=== PATIENT | male | born 1950 | race Caucasian/White ===

== ENCOUNTER 2017-11-12 08:28 | Inpatient (IN) | payer MEDICARE, MEDICAID ==
[2017-11-12] MEDS ORDERED: DILTIAZEM HCL INJ 25 MG/5 ML VIAL IV ONE (08:48)
--- NOTE | 2017-11-12 08:52 | ER Document Report ---
ED General - General Stated Complaint: RESPIRATORY DISTRESS Time Seen by Provider: 11/12/17 08:47 Notes: Patient with shortness of breath. Worsening throughout the day. EMS contacted. Patient transported in respiratory distress with 2 breathing treatments and Solu-Medrol in route. On arrival patient's heart rate in the 160s. Patient with history of atrial fibrillation. Does not know what medication he is currently taking. Was recently hospitalized. Denies any chest pain at this time just shortness of breath. TRAVEL OUTSIDE OF THE [place] IN LAST 30 DAYS: No - HPI Onset: Just prior to arrival Onset/Duration: Gradual Quality of pain: No pain Severity: Severe Associated symptoms: Shortness of breath Exacerbated by: Denies - Related Data Allergies/Adverse Reactions: Penicillins Allergy (Severe, Verified 07/15/16 10:34) turned blue as infant hydrocodone bitartrate [From Vicodin] Allergy (Intermediate, Verified 07/15/16 10:34) N & V Past Medical History - General Information source: Patient - Social History Smoking Status: Current Some Day Smoker Cigarette use (# per day): Yes Frequency of alcohol use: None Drug Abuse: None Family History: Reviewed & Not Pertinent - Past Medical History Cardiac Medical History: Reports: Hx Atrial Fibrillation, Hx Congestive Heart Failure, Hx Coronary Artery Disease, Hx Heart Attack - 2010 Pulmonary Medical History: Reports: Hx COPD Neurological Medical History: Reports: Hx Cerebrovascular Accident - 2009 Malignancy Medical History: Reports Hx Skin Cancer Musculoskeltal Medical History: Reports Hx Arthritis Psychiatric Medical History: Denies: Hx Depression Past Surgical History: Reports: Hx Cardiac Catheterization - stent, Hx Coronary Artery Bypass Graft - 11/2011, Hx Coronary Stent - Immunizations Hx Diphtheria, Pertussis, Tetanus Vaccination: No Hx Pneumococcal Vaccination: 11/04/11 Review of Systems - Review of Systems Constitutional: No symptoms reported EENT: No symptoms reported Cardiovascular: Palpitations, Dyspnea, Lightheaded Respiratory: Cough, Short of breath, Wheezing Gastrointestinal: No symptoms reported Genitourinary: No symptoms reported Male Genitourinary: No symptoms reported Musculoskeletal: No symptoms reported Skin: No symptoms reported Hematologic/Lymphatic: No symptoms reported Neurological/Psychological: No symptoms reported Physical Exam - Vital signs Vitals: Pulse Ox 94 11/12/17 08:32 Interpretation: Normal - General General appearance: Alert In distress: Moderate - HEENT Head: Normocephalic, Atraumatic Eyes: Normal Pupils: PERRL - Respiratory Respiratory status: No respiratory distress Chest status: Nontender Breath sounds: Decreased air movement, Nonproductive cough, Wheezing Chest palpation: Normal - Cardiovascular Rhythm: Irregularly irregular, Tachycardia Heart sounds: Normal auscultation Murmur: No - Abdominal Inspection: Normal Distension: No distension Bowel sounds: Normal Tenderness: Nontender Organomegaly: No organomegaly - Back Back: Normal, Nontender - Extremities General upper extremity: Normal inspection, Nontender, Normal color, Normal ROM , Normal temperature General lower extremity: Normal inspection, Nontender, Normal color, Normal ROM , Normal temperature, Normal weight bearing. No: Gonzalo's sign - Neurological Neuro grossly intact: Yes Cognition: Normal Orientation: AAOx4 [place] Coma Scale Eye Opening: Spontaneous Linda Coma Scale Verbal: Oriented [place] Coma Scale Motor: Obeys Commands [place] Coma Scale Total: 15 Speech: Normal Motor strength normal: LUE, RUE, LLE, RLE Sensory: Normal - Psychological Associated symptoms: Normal affect, Normal mood - Skin Skin Temperature: Warm Skin Moisture: Dry Skin Color: Normal Course - Re-evaluation Re-evalutation: 11/12/17 08:51 Patient EKG shows A. fib with RVR heart rate 175. Will give diltiazem bolus and drip at this time. Chest x-ray, cardiac workup, breathing treatment, oxygen and reassess. 11/12/17 10:32 Rate coming down nicely on the diltiazem drip. Consulted with Dr. Alex who will admit to the hospital at this time. - Vital Signs Vital signs: Temp Pulse Resp BP Pulse Ox 98.5 F 147 H 33 H 132/76 H 95 11/12/17 09:03 11/12/17 09:03 11/12/17 10:01 11/12/17 10:01 11/12/17 10:01 - Laboratory Result Diagrams: 11/12/17 08:46 11/12/17 08:46 Laboratory results interpreted by me: 11/12/17 11/12/17 11/12/17 08:46 08:46 08:46 Seg Neutrophils % 82.8 H Lymphocytes % 8.3 L Absolute Neutrophils 8.3 H BUN 24 H Glucose 139 H Direct Bilirubin 0.5 H NT-Pro-B Natriuret Pep 1590 H Total Protein 8.4 H - EKG Interpretation by Me EKG shows normal: abnormal: ST-T Waves - T-wave inversions diffusely, nonspecific T-wave abnormalities Rate: Tachycardia Rhythm: A.Fib Critical Care Note - Critical Care Note Total time excluding time spent on procedures (mins): 45 Comments: Tachycardia, cardiac related issues, blood pressure management Discharge - Discharge Clinical Impression: Atrial fibrillation with rapid ventricular response, COPD exacerbation Congestive heart failure (CHF) Qualifiers: Congestive heart failure type: unspecified Congestive heart failure chronicity : unspecified Qualified Code(s): I50.9 - Heart failure, unspecified Condition: Good Disposition: ADMITTED INPATIENT Admitting Provider: Isai Unit Admitted: [facility]
[2017-11-12] MEDS: DILTIAZEM HCL/D5W 125 MG/125 ML RTUINJ IV PRN ×2 (08:58→17:19)
[2017-11-12 09:03] LABS: VENOUS BLOOD BASE EXCESS -0.5 mmol/L; VENOUS BLOOD HCO3 24.5 mmol/L (20-32); VENOUS BLOOD PCO2 41.5 mmHg (35-63); VENOUS BLOOD PH 7.39 (7.30-7.42)
[2017-11-12 09:08] LABS: ABSOLUTE LYMPHOCYTES (AUTO) 0.8 10^3/uL (0.5-4.7); ABSOLUTE MONOCYTES (AUTO) 0.8 10^3/uL (0.1-1.4); ABSOLUTE NEUT (AUTO) 8.3 10^3/uL (1.7-8.2); BASOPHILS % (AUTO) 0.4 % (0-2); HEMOGLOBIN 15.4 g/dL (13.5-17.0); LYMPHOCYTES % (AUTO) 8.3 % (13-45); MEAN CORPUSCULAR HEMOGLOBIN 30.4 pg (27.0-33.4); MEAN CORPUSCULAR HGB CONC 34.3 g/dL (32.0-36.0); MEAN CORPUSCULAR VOLUME 89 fl (80-97); MONOCYTES % (AUTO) 8.5 % (3-13); PLATELET COUNT 243 10^3/uL (150-450); RED BLOOD COUNT 5.07 10^6/uL (4.35-5.55); RED CELL DISTRIBUTION WIDTH 13.5 % (11.5-14.0); SEGMENTED NEUTROPHILS % (AUTO) 82.8 % (42-78); TOTAL CELLS COUNTED % (AUTO) 100 %
--- NOTE | 2017-11-12 09:10 | RADIOLOGY REPORT (SQ) ---
EXAM DESCRIPTION: CHEST SINGLE VIEW COMPLETED DATE/TIME: 11/12/2017 8:55 am REASON FOR STUDY: bed 9 sepsis protocol COMPARISON: 07/15/2016 EXAM PARAMETERS: NUMBER OF VIEWS: One view. TECHNIQUE: Single frontal radiographic view of the chest acquired. RADIATION DOSE: NA LIMITATIONS: None. FINDINGS: LUNGS AND PLEURA: No active infiltrates or effusions. No pulmonary edema or vascular jasmyne estion. MEDIASTINUM AND HILAR STRUCTURES: No masses. Contour normal. HEART AND VASCULAR STRUCTURES: Stable cardiomegaly. BONES: No acute findings. HARDWARE: None in the chest. OTHER: No other significant finding. IMPRESSION: Cardiomegaly. No overt congestive heart failure or active infiltrate. TECHNICAL DOCUMENTATION: JOB ID: [id number] [employer]- All Rights Reserved
[2017-11-12 09:12] LABS: INTERNATIONAL RATION (INR) 1.05; PROTHROMBIN TIME 14.5 SEC (11.4-15.4)
[2017-11-12 09:25] LABS: ALANINE AMINOTRANSFERASE 25 U/L (21-72); ALBUMIN 4.8 g/dL (3.5-5.0); ALKALINE PHOSPHATASE 62 U/L (38-126); ANION GAP 17 (5-19); ASPARTATE AMINO TRANSFERASE 31 U/L (17-59); BILIRUBIN,DIRECT 0.5 mg/dL (0.0-0.4); BILIRUBIN,TOTAL 1.1 mg/dL (0.2-1.3); BLOOD UREA NITROGEN 24 mg/dL (7-20); CALCIUM 9.3 mg/dL (8.4-10.2); CARBON DIOXIDE 22 mmol/L (22-30); CHLORIDE 103 mmol/L (98-107); GLUCOSE 139 mg/dL (75-110); POTASSIUM 4.3 mmol/L (3.6-5.0); SODIUM 141.8 mmol/L (137-145); TOTAL PROTEIN 8.4 g/dL (6.3-8.2)
[2017-11-12 09:37] LABS: TROPONIN I 0.027 ng/mL
[2017-11-12 10:51] LABS: APPEARANCE,URINE SLIGHTLY-CLOUDY; BILIRUBIN,URINE NEGATIVE (NEGATIVE); COLOR,URINE AMBER; GLUCOSE, URINE NEGATIVE (NEGATIVE); KETONES,URINE TRACE mg/dL (NEGATIVE); LEUKOCYTE ESTERASE,URINE NEGATIVE (NEGATIVE); NITRITE,URINE NEGATIVE (NEGATIVE); PROTEIN,URINE 100 mg/dL (NEGATIVE); URINE SPECIFIC GRAVITY 1.034
--- NOTE | 2017-11-12 13:09 | EKG REPORT ---
SEVERITY:- ABNORMAL ECG - ATRIAL FIBRILLATION WITH RAPID V-RATE BORDERLINE INFERIOR Q WAVES REPOLARIZATION ABNORMALITY, PROB RATE RELATED : Confirmed by: Saeid Fofana MD 12-Nov-2017 13:09:05
[2017-11-12] MEDS ORDERED: IPRATROPIUM/ALBUTEROL 0.5-2.5 MG/3 ML AMPUL NEB PRN (15:57)
[2017-11-12] MEDS: METHYLPREDNISOLONE INJ 125 MG/2 ML SDV IV SCH (19:10)
[2017-11-12] MEDS ORDERED: (PENDING PHARMACY ID) (Oxycodone Hcl/Acetaminophen [Percocet 7.5-325 Mg Tablet] 1 TAB) PO PRN (20:09)
[2017-11-12] MEDS ORDERED: OXYCODONE HCL IR 5 MG TABLET PO PRN (20:13)
[2017-11-12] MEDS ORDERED: ACETAMINOPHEN 325 MG TABLET PO PRN (20:14)
[2017-11-12] MEDS ORDERED: INFLUENZA ADLT QUAD (36MOS+) 2017-18 VAC 0.5 ML SYR IM PRN (20:31)
--- NOTE | 2017-11-12 20:41 | PDOC H&P ---
History of Present Illness Admission Date/PCP: 11/12/17 11:00 Patient complains of: Difficulty with breathing History of Present Illness: RUKHSANA GRAHAM is a 67 year old male known to my practice who has been noncompliant with medical care follow up due to reported transportation problem but do attend pain management clinic! Presented to the ED earlier today via EMS service due to worsening difficulty with breathing. EMS crew did administered bronchodilator and IV Solu Medrol therapy en route to the ED. His initial evaluation in the ED was remarkable for atrial fibrillation with RVR and ongoing difficulty with breathing that necessitate BiPAP therapy along with IV Steroid and bronchodilator therapy. Patient do have history of chronic atrial fibrillation and COPD. He claimed that he only take Digoxin. He quit cigarette smoking yesterday! He denied any associated chest pain. He admitted to palpitation, lightheadedness, and dizziness. He denied nausea, vomiting, headache or loss of consciousness. His other morbidities include Congestive Heart Failure, Coronary Artery Disease, Old Myocardial infarction, Hx Heart Attack - 2010, history of Cerebrovascular Accident without residual motor deficit, Right eye blindness, Degenerative joint disease with chronic pain syndrome, Skin cancer, Coronary Artery Bypass Graft, and coronary stent angioplasty Past Medical History Cardiac Medical History: Reports: Atrial Fibrillation, Congestive Heart Failure , Coronary Artery Disease, Myocardial Infarction - 2010 Pulmonary Medical History: Reports: Chronic Obstructive Pulmonary Disease (COPD) Malignancy Medical History: Reports: Skin Cancer Musculoskeltal Medical History: Reports: Arthritis Psychiatric Medical History: Denies: Depression Hematology: Denies: Anemia Past Surgical History Past Surgical History: Reports: Cardiac Catheterization - stent, Coronary Artery Bypass Graft - 11/2011, Coronary Stent Social History Smoking Status: Current Some Day Smoker Frequency of Alcohol Use: None Hx Recreational Drug Use: No Hx Prescription Drug Abuse: No Family History Family History: Reviewed & Not Pertinent Parental Family History Reviewed: Yes Children Family History Reviewed: Yes Sibling(s) Family History Reviewed.: Yes Medication/Allergy Home Medications: Digoxin [Lanoxin 0.125 mg Tablet] 0.125 mg PO DAILY 11/12/17 Oxycodone HCl/Acetaminophen [Percocet 7.5-325 mg Tablet] 1 tab PO Q6HP PRN 11/12 Allergies/Adverse Reactions: Penicillins Allergy (Severe, Verified 07/15/16 10:34) turned blue as hydrocodone bitartrate [From Vicodin] Allergy (Intermediate, Verified 07/15/16 10:34) N & V Review of Systems Constitutional: ABSENT: chills, fever(s), headache(s), weight gain, weight loss Eyes: PRESENT: visual disturbances - Right eye blindness Ears: PRESENT: hearing changes Nose, Mouth, and Throat: ABSENT: as per HPI, headache(s), mouth pain, sore throat, vertigo, other Cardiovascular: PRESENT: dyspnea on exertion, palpitations Respiratory: PRESENT: dyspnea. ABSENT: as per HPI, cough, hemoptysis, sputum, other Gastrointestinal: ABSENT: abdominal pain, constipation, diarrhea, hematemesis, hematochezia, nausea, vomiting Genitourinary: ABSENT: dysuria, hematuria Musculoskeletal: ABSENT: joint swelling Integumentary: ABSENT: rash, wounds Neurological: PRESENT: dizziness, other - light headedness Psychiatric: ABSENT: anxiety, depression, homidical ideation, suicidal ideation Endocrine: ABSENT: cold intolerance, heat intolerance, menstrual abnormalities, polydipsia, polyuria Hematologic/Lymphatic: ABSENT: easy bleeding, easy bruising, lymphadenopathy Allergic/Immunologic: ABSENT: seasonal rhinorrhea Physical Exam Vital Signs: Temp Pulse Resp BP Pulse Ox 98.5 F 147 H 35 H 120/79 96 11/12/17 09:03 11/12/17 09:03 11/12/17 19:46 11/12/17 19:46 11/12/17 19:46 General appearance: PRESENT: mild distress - remain on supplemental oxygen via nasal cannula Head exam: PRESENT: atraumatic, normocephalic Eye exam: PRESENT: conjunctiva pink, EOMI, PERRLA. ABSENT: scleral icterus Mouth exam: PRESENT: moist Neck exam: PRESENT: full ROM. ABSENT: carotid bruit, JVD, lymphadenopathy, thyromegaly Respiratory exam: PRESENT: decreased breath sounds, rhonchi - expiratory phase Cardiovascular exam: PRESENT: irregular rhythm, +S1, +S2, tachycardia Pulses: PRESENT: normal dorsalis pedis pul, +2 pedal pulses bilateral Vascular exam: PRESENT: normal capillary refill. ABSENT: pallor GI/Abdominal exam: PRESENT: normal bowel sounds, soft. ABSENT: distended, guarding, mass, organolmegaly, rebound, tenderness Rectal exam: PRESENT: deferred Extremities exam: ABSENT: pedal edema Musculoskeletal exam: PRESENT: deformity - related to multiple joint involvement with arthritis Neurological exam: PRESENT: alert, awake, oriented to person, oriented to place , oriented to time, oriented to situation, CN II-XII grossly intact. ABSENT: motor sensory deficit Psychiatric exam: PRESENT: appropriate affect, normal mood. ABSENT: homicidal ideation, suicidal ideation Skin exam: PRESENT: dry, warm Results Impressions: Chest X-Ray 11/12/17 08:31 IMPRESSION: Cardiomegaly. No overt congestive heart failure or active infiltrate. Assessment & Plan - Diagnosis (1) Chronic obstructive pulmonary disease with (acute) exacerbation Is this a current diagnosis for this admission?: Yes Plan: See admitting physician orders. (2) Atrial fibrillation with rapid ventricular response Is this a current diagnosis for this admission?: Yes Plan: See admitting physician orders. (3) Congestive heart failure (CHF) Qualifiers: Congestive heart failure type: unspecified Congestive heart failure chronicity: chronic Qualified Code(s): I50.9 - Heart failure, unspecified Is this a current diagnosis for this admission?: Yes Plan: See admitting physician orders. (4) HTN (hypertension) Qualifiers: Hypertension type: essential hypertension Qualified Code(s): I10 - Essential (primary) hypertension Is this a current diagnosis for this admission?: Yes Plan: See admitting physician orders. (5) HLD (hyperlipidemia) Qualifiers: Hyperlipidemia type: pure hypercholesterolemia Qualified Code(s): E78.00 - Pure hypercholesterolemia, unspecified; E78.0 - Pure hypercholesterolemia Is this a current diagnosis for this admission?: Yes Plan: See admitting physician orders. (6) CAD (coronary artery disease) Qualifiers: Coronary Disease-Associated Artery/Lesion type: unspecified vessel or lesion type [place] vs. transplanted heart: [place] heart Associated angina: without angina Qualified Code(s): I25.10 - Atherosclerotic heart disease of [place] coronary artery without angina pectoris (7) S/P CABG (coronary artery bypass graft) Is this a current diagnosis for this admission?: Yes Plan: See admitting physician orders. (8) Nicotine dependence, cigarettes, with other nicotine-induced disorders Is this a current diagnosis for this admission?: Yes Plan: See admitting physician orders. - Time Time Spent: 50 to 70 Minutes Medications reviewed and adjusted accordingly: Yes Anticipated discharge: Home Within: Other - Inpatient Certification Based on my medical assessment, after consideration of the patient's comorbidities, presenting symptoms, or acuity I expect that the services needed warrant INPATIENT care.: Yes I certify that my determination is in accordance with my understanding of Medicare's requirements for reasonable and necessary INPATIENT services [42 CFR 412.3e].: Yes Medical Necessity: Need Close Monitoring Due to Risk of Patient Decompensation, Need For Continuous Telemetry Monitoring, Need for Nebulizer Therapy and Monitoring of Response, Risk of Complication if Not Cared For in Hospital 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
[2017-11-13] MEDS: DABIGATRAN ETEXILATE 150 MG CAPSULE PO SCH ×3 (00:51→21:53)
[2017-11-13] MEDS: LEVOFLOXACIN 500 MG/D5W RTU 500 MG/100 ML RTUPB IV SCH ×2 (00:51→21:53)
[2017-11-13] MEDS: METHYLPREDNISOLONE INJ 125 MG/2 ML SDV IV SCH ×3 (02:45→17:27)
[2017-11-13] MEDS: DILTIAZEM HCL/D5W 125 MG/125 ML RTUINJ IV PRN ×2 (06:04→23:25)
[2017-11-13 07:16] LABS: ABSOLUTE LYMPHOCYTES (AUTO) 0.6 10^3/uL (0.5-4.7); ABSOLUTE MONOCYTES (AUTO) 0.5 10^3/uL (0.1-1.4); ABSOLUTE NEUT (AUTO) 11.1 10^3/uL (1.7-8.2); BASOPHILS % (AUTO) 0.1 % (0-2); HEMATOCRIT 41.9 % (37.9-51.0); HEMOGLOBIN 14.8 g/dL (13.5-17.0); LYMPHOCYTES % (AUTO) 5.1 % (13-45); MEAN CORPUSCULAR HEMOGLOBIN 31.1 pg (27.0-33.4); MEAN CORPUSCULAR HGB CONC 35.2 g/dL (32.0-36.0); MEAN CORPUSCULAR VOLUME 88 fl (80-97); MONOCYTES % (AUTO) 4.5 % (3-13); PLATELET COUNT 222 10^3/uL (150-450); RED BLOOD COUNT 4.74 10^6/uL (4.35-5.55); RED CELL DISTRIBUTION WIDTH 13.5 % (11.5-14.0); SEGMENTED NEUTROPHILS % (AUTO) 90.3 % (42-78); TOTAL CELLS COUNTED % (AUTO) 100 %; WHITE BLOOD COUNT 12.2 10^3/uL (4.0-10.5)
[2017-11-13 07:53] LABS: ALANINE AMINOTRANSFERASE 22 U/L (21-72); ALBUMIN 4.1 g/dL (3.5-5.0); ALKALINE PHOSPHATASE 57 U/L (38-126); ANION GAP 11 (5-19); ASPARTATE AMINO TRANSFERASE 34 U/L (17-59); BILIRUBIN,DIRECT 0.4 mg/dL (0.0-0.4); BILIRUBIN,TOTAL 0.8 mg/dL (0.2-1.3); BLOOD UREA NITROGEN 28 mg/dL (7-20); CARBON DIOXIDE 27 mmol/L (22-30); CHLORIDE 104 mmol/L (98-107); CHOLESTEROL 169.03 mg/dL (0-200); GLUCOSE 151 mg/dL (75-110); POTASSIUM 4.8 mmol/L (3.6-5.0); SODIUM 142.4 mmol/L (137-145); TOTAL PROTEIN 7.8 g/dL (6.3-8.2); TRIGLYCERIDES 80 mg/dL (<150)
[2017-11-13 08:04] LABS: DIRECT LDL 118 mg/dL (<100)
[2017-11-13] MEDS: DIGOXIN 0.125 MG TABLET PO SCH (09:16)
[2017-11-13] MEDS ORDERED: DILTIAZEM HCL 120 MG CAP.SR.24H PO SCH (10:00)
--- NOTE | 2017-11-13 18:54 | PDOC PROGRESS REPORT ---
Subjective Progress Note for:: 11/13/17 Subjective:: Patient continue to have episode of RVR and difficulty with breathing. Maintain on IV Cardizem infusion. No chest pain. No nausea or vomiting. No fever or chills. Reason For Visit: CHRONIC ATRIAL FIBRILLATION WITH RVR, EXACERBATED Physical Exam Vital Signs: Temp Pulse Resp BP Pulse Ox 98.5 F 138 H 37 H 111/84 87 L 11/12/17 09:03 11/13/17 18:41 11/13/17 17:16 11/13/17 18:41 11/13/17 16:46 Intake & Output 11/12/17 11/13/17 11/14/17 06:59 06:59 06:59 Intake Total 100 403 Output Total 300 Balance -200 403 General appearance: PRESENT: no acute distress, mild distress - with audible wheezing, well-developed, well-nourished Head exam: PRESENT: atraumatic, normocephalic Eye exam: PRESENT: conjunctiva pink, EOMI, PERRLA. ABSENT: scleral icterus Mouth exam: PRESENT: moist Teeth exam: PRESENT: poor dentation Respiratory exam: PRESENT: decreased breath sounds, rhonchi - scattered and bilateral Cardiovascular exam: PRESENT: irregular rhythm, tachycardia Vascular exam: PRESENT: normal capillary refill. ABSENT: pallor GI/Abdominal exam: PRESENT: normal bowel sounds, soft. ABSENT: distended, guarding, mass, organolmegaly, rebound, tenderness Extremities exam: ABSENT: pedal edema Musculoskeletal exam: PRESENT: deformity - due to multiple joints involvement with arthritis Neurological exam: PRESENT: alert, awake, oriented to person, oriented to place , oriented to time, oriented to situation, CN II-XII grossly intact. ABSENT: motor sensory deficit Psychiatric exam: PRESENT: appropriate affect, normal mood. ABSENT: homicidal ideation, suicidal ideation Skin exam: PRESENT: dry, intact, warm. ABSENT: cyanosis, rash Results Laboratory Results: 11/13/17 07:09 11/13/17 07:09 11/13/17 11/13/17 07:09 07:09 WBC 12.2 H RBC 4.74 Hgb 14.8 Hct 41.9 MCV 88 MCH 31.1 MCHC 35.2 RDW 13.5 Plt Count 222 Seg Neutrophils % 90.3 H Lymphocytes % 5.1 L Monocytes % 4.5 Eosinophils % 0.0 Basophils % 0.1 Absolute Neutrophils 11.1 H Absolute Lymphocytes 0.6 Absolute Monocytes 0.5 Absolute Eosinophils 0.0 Absolute Basophils 0.0 Sodium 142.4 Potassium 4.8 Chloride 104 Carbon Dioxide 27 Anion Gap 11 BUN 28 H Creatinine 1.00 Est GFR ( Amer) > 60 Est GFR (Non-Af Amer) > 60 Glucose 151 H Calcium 10.0 Total Bilirubin 0.8 AST 34 ALT 22 Alkaline Phosphatase 57 Total Protein 7.8 Albumin 4.1 Triglycerides 80 Cholesterol 169.03 LDL Cholesterol Direct 118 H VLDL Cholesterol 16.0 HDL Cholesterol 36 L Impressions: Chest X-Ray 11/12/17 08:31 IMPRESSION: Cardiomegaly. No overt congestive heart failure or active infiltrate. Assessment & Plan - Diagnosis (1) Chronic obstructive pulmonary disease with (acute) exacerbation Is this a current diagnosis for this admission?: Yes (2) Atrial fibrillation with rapid ventricular response Is this a current diagnosis for this admission?: Yes (3) Congestive heart failure (CHF) Qualifiers: Congestive heart failure type: unspecified Congestive heart failure chronicity: chronic Qualified Code(s): I50.9 - Heart failure, unspecified Is this a current diagnosis for this admission?: Yes (4) HTN (hypertension) Qualifiers: Hypertension type: essential hypertension Qualified Code(s): I10 - Essential (primary) hypertension Is this a current diagnosis for this admission?: Yes (5) HLD (hyperlipidemia) Qualifiers: Hyperlipidemia type: pure hypercholesterolemia Qualified Code(s): E78.00 - Pure hypercholesterolemia, unspecified; E78.0 - Pure hypercholesterolemia Is this a current diagnosis for this admission?: Yes (6) CAD (coronary artery disease) Qualifiers: Coronary Disease-Associated Artery/Lesion type: unspecified vessel or lesion type [place] vs. transplanted heart: [place] heart Associated angina: without angina Qualified Code(s): I25.10 - Atherosclerotic heart disease of [place] coronary artery without angina pectoris (7) S/P CABG (coronary artery bypass graft) Is this a current diagnosis for this admission?: Yes (8) Nicotine dependence, cigarettes, with other nicotine-induced disorders Is this a current diagnosis for this admission?: Yes - Time Time Spent with patient: 25-34 minutes Medications reviewed and adjusted accordingly: Yes Anticipated discharge: Home with Homehealth Within: Other - Inpatient Certification Based on my medical assessment, after consideration of the patient's comorbidities, presenting symptoms, or acuity I expect that the services needed warrant INPATIENT care.: Yes I certify that my determination is in accordance with my understanding of Medicare's requirements for reasonable and necessary INPATIENT services [42 CFR 412.3e].: Yes Medical Necessity: Need Close Monitoring Due to Risk of Patient Decompensation, Need For IV Fluids, Need For Continuous Telemetry Monitoring, Need for Nebulizer Therapy and Monitoring of Response, Need for IV Antibiotics, Risk of Complication if Not Cared For in Hospital 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 Start on Cardizem 60 mg p.o q8 hours. Maintain on IV Rocephin coverage. Follow up on urine and blood culture findings. Decrease IV Solu Medrol to 80 mg q8 hours. Continue all other current medication management.
[2017-11-13] MEDS ORDERED: METHYLPREDNISOLONE INJ 125 MG/2 ML SDV IV SCH (18:56)
[2017-11-13] MEDS: DILTIAZEM HCL 60 MG TABLET PO SCH (21:52)
[2017-11-14] MEDS: METHYLPREDNISOLONE INJ 40 MG/1 ML SDV IV SCH ×3 (02:02→17:18)
[2017-11-14] MEDS: DILTIAZEM HCL 60 MG TABLET PO SCH ×3 (06:25→21:11)
[2017-11-14 07:24] LABS: ABSOLUTE MONOCYTES (AUTO) 0.7 10^3/uL (0.1-1.4); ABSOLUTE NEUT (AUTO) 12.9 10^3/uL (1.7-8.2); BASOPHILS % (AUTO) 0.1 % (0-2); HEMATOCRIT 42.4 % (37.9-51.0); HEMOGLOBIN 14.5 g/dL (13.5-17.0); LYMPHOCYTES % (AUTO) 6.9 % (13-45); MEAN CORPUSCULAR HEMOGLOBIN 30.1 pg (27.0-33.4); MEAN CORPUSCULAR HGB CONC 34.2 g/dL (32.0-36.0); MEAN CORPUSCULAR VOLUME 88 fl (80-97); MONOCYTES % (AUTO) 5.1 % (3-13); PLATELET COUNT 227 10^3/uL (150-450); RED BLOOD COUNT 4.82 10^6/uL (4.35-5.55); RED CELL DISTRIBUTION WIDTH 13.2 % (11.5-14.0); SEGMENTED NEUTROPHILS % (AUTO) 87.9 % (42-78); TOTAL CELLS COUNTED % (AUTO) 100 %; WHITE BLOOD COUNT 14.7 10^3/uL (4.0-10.5)
[2017-11-14 07:44] LABS: ANION GAP 9 (5-19); BLOOD UREA NITROGEN 38 mg/dL (7-20); CALCIUM 9.6 mg/dL (8.4-10.2); CARBON DIOXIDE 29 mmol/L (22-30); CHLORIDE 102 mmol/L (98-107); GLUCOSE 149 mg/dL (75-110); POTASSIUM 4.4 mmol/L (3.6-5.0); SODIUM 139.7 mmol/L (137-145)
[2017-11-14] MEDS: DABIGATRAN ETEXILATE 150 MG CAPSULE PO SCH ×2 (10:07→21:12)
[2017-11-14] MEDS: DIGOXIN 0.125 MG TABLET PO SCH (10:08)
--- NOTE | 2017-11-14 14:37 | Physician Advisory Note ---
Physician Advisor ProgressNote .: Pursuant to the plan for [facility], I have reviewed the medical record for this patient. Physician Advisor Statement: Nice documentation of Afib being chronic/persistent type, now w/RVR. Please consider documenting, if you agree: 1. "Chronic Systolic CHF, EF 40-45%" (coders need both acuity & type of CHF documented with CHF each time, or have to query) 2. Are there any increased work of breathing/accessory muscle use/retractions etc present with pt's persistent hypoxemia? If so, please document them, and pt will qualify for dx of "Acute Hypoxemic Respiratory Failure". - (SOB, LEIGH, tachypnea have been documented, O2 sats include 94% on 3L O2, & as low as 76%) Thanks for all you do! CK
--- NOTE | 2017-11-14 19:15 | PDOC PROGRESS REPORT ---
Subjective Progress Note for:: 11/14/17 Subjective:: No chest pain. Breathing improving but still some wheezing. Off IV Cardizem drip. No nausea, vomiting or abdominal pain. No fever or chills. Reason For Visit: CHRONIC ATRIAL FIBRILLATION WITH RVR, EXACERBATED Physical Exam Vital Signs: Temp Pulse Resp BP Pulse Ox 97.4 F 78 21 H 120/54 L 98 11/14/17 15:24 11/14/17 15:24 11/14/17 15:24 11/14/17 15:24 11/14/17 15:24 Intake & Output 11/13/17 11/14/17 11/15/17 06:59 06:59 06:59 Intake Total 100 1043 686 Output Total 300 225 600 Balance -200 818 86 Weight 67.9 kg Physical Exam: General appearance: PRESENT: no acute distress, mild distress - with audible wheezing, well-developed, well-nourished Head exam: PRESENT: atraumatic, normocephalic Eye exam: PRESENT: conjunctiva pink, EOMI, PERRLA. ABSENT: scleral icterus Mouth exam: PRESENT: moist Teeth exam: PRESENT: poor dentation Respiratory exam: PRESENT: decreased breath sounds, rhonchi - scattered and bilateral Cardiovascular exam: PRESENT: irregular rhythm. S1+, S2+ Vascular exam: PRESENT: normal capillary refill. ABSENT: pallor GI/Abdominal exam: PRESENT: normal bowel sounds, soft. ABSENT: distended, guarding, mass, organomegaly, rebound, tenderness Extremities exam: ABSENT: pedal edema Musculoskeletal exam: PRESENT: deformity - due to multiple joints involvement with arthritis Neurological exam: PRESENT: alert, awake, oriented to person, oriented to place , oriented to time, oriented to situation, CN II-XII grossly intact. ABSENT: motor sensory deficit Psychiatric exam: PRESENT: appropriate affect, normal mood. ABSENT: homicidal ideation, suicidal ideation Skin exam: PRESENT: dry, intact, warm. ABSENT: cyanosis, rash Results Laboratory Results: 11/14/17 06:24 11/14/17 06:24 11/14/17 11/14/17 06:24 06:24 WBC 14.7 H RBC 4.82 Hgb 14.5 Hct 42.4 MCV 88 MCH 30.1 MCHC 34.2 RDW 13.2 Plt Count 227 Seg Neutrophils % 87.9 H Lymphocytes % 6.9 L Monocytes % 5.1 Eosinophils % 0.0 Basophils % 0.1 Absolute Neutrophils 12.9 H Absolute Lymphocytes 1.0 Absolute Monocytes 0.7 Absolute Eosinophils 0.0 Absolute Basophils 0.0 Sodium 139.7 Potassium 4.4 Chloride 102 Carbon Dioxide 29 Anion Gap 9 BUN 38 H Creatinine 0.99 Est GFR ( Amer) > 60 Est GFR (Non-Af Amer) > 60 Glucose 149 H Calcium 9.6 Impressions: Chest X-Ray 11/12/17 08:31 IMPRESSION: Cardiomegaly. No overt congestive heart failure or active infiltrate. Assessment & Plan - Diagnosis (1) Chronic obstructive pulmonary disease with (acute) exacerbation Is this a current diagnosis for this admission?: Yes Plan: Improving. See attending physician orders. (2) Atrial fibrillation with rapid ventricular response Is this a current diagnosis for this admission?: Yes Plan: Improved. See attending physician orders. (3) Congestive heart failure (CHF) Qualifiers: Congestive heart failure type: systolic Congestive heart failure chronicity : chronic Qualified Code(s): I50.22 - Chronic systolic (congestive) heart failure Is this a current diagnosis for this admission?: Yes Plan: See attending physician orders. (4) HTN (hypertension) Qualifiers: Hypertension type: essential hypertension Qualified Code(s): I10 - Essential (primary) hypertension Is this a current diagnosis for this admission?: Yes (5) HLD (hyperlipidemia) Qualifiers: Hyperlipidemia type: pure hypercholesterolemia Qualified Code(s): E78.00 - Pure hypercholesterolemia, unspecified; E78.0 - Pure hypercholesterolemia Is this a current diagnosis for this admission?: Yes (6) CAD (coronary artery disease) Qualifiers: Coronary Disease-Associated Artery/Lesion type: unspecified vessel or lesion type [place] vs. transplanted heart: [place] heart Associated angina: without angina Qualified Code(s): I25.10 - Atherosclerotic heart disease of [place] coronary artery without angina pectoris (7) S/P CABG (coronary artery bypass graft) Is this a current diagnosis for this admission?: Yes (8) Nicotine dependence, cigarettes, with other nicotine-induced disorders Is this a current diagnosis for this admission?: Yes - Time Time Spent with patient: 25-34 minutes Medications reviewed and adjusted accordingly: Yes Anticipated discharge: Home with Homehealth Within: Other - Inpatient Certification Based on my medical assessment, after consideration of the patient's comorbidities, presenting symptoms, or acuity I expect that the services needed warrant INPATIENT care.: Yes I certify that my determination is in accordance with my understanding of Medicare's requirements for reasonable and necessary INPATIENT services [42 CFR 412.3e].: Yes Medical Necessity: Need Close Monitoring Due to Risk of Patient Decompensation, Need For IV Fluids, Need For Continuous Telemetry Monitoring, Need for Nebulizer Therapy and Monitoring of Response, Need for IV Antibiotics, Risk of Complication if Not Cared For in Hospital Post Hospital Care: D/C Residential Life Director Documentation - Plan Summary Plan Summary: See attending physician orders.
[2017-11-14] MEDS: LEVALBUTEROL HCL NEB 1.25 MG/3 ML AMPUL NEB PRN (20:02)
[2017-11-14] MEDS: METHYLPREDNISOLONE INJ 125 MG/2 ML SDV IV SCH (21:10)
[2017-11-14] MEDS: LEVOFLOXACIN 500 MG/D5W RTU 500 MG/100 ML RTUPB IV SCH (21:11)
[2017-11-15] MEDS: METHYLPREDNISOLONE INJ 125 MG/2 ML SDV IV SCH ×2 (06:32→13:20)
[2017-11-15] MEDS: DILTIAZEM HCL 60 MG TABLET PO SCH ×3 (06:33→23:48)
[2017-11-15] MEDS: DABIGATRAN ETEXILATE 150 MG CAPSULE PO SCH ×2 (10:30→21:46)
[2017-11-15] MEDS: DIGOXIN 0.125 MG TABLET PO SCH (10:30)
[2017-11-15] MEDS ORDERED: METHYLPREDNISOLONE INJ 125 MG/2 ML SDV IV SCH (18:41)
--- NOTE | 2017-11-15 18:51 | PDOC PROGRESS REPORT ---
Subjective Progress Note for:: 11/15/17 Subjective:: No chest pain. Improved breathing. No nausea, vomiting or abdominal pain. No fever or chills. Reason For Visit: CHRONIC ATRIAL FIBRILLATION WITH RVR, EXACERBATED Physical Exam Vital Signs: Temp Pulse Resp BP Pulse Ox 97.4 F 76 18 122/78 100 11/15/17 11:13 11/15/17 16:18 11/15/17 16:18 11/15/17 16:18 11/15/17 16:18 Intake & Output 11/14/17 11/15/17 11/16/17 06:59 06:59 06:59 Intake Total 1043 1516 10 Output Total 225 1400 Balance 818 116 10 Weight 67.9 kg 69.9 kg Physical Exam: General appearance: PRESENT: no acute distress, mild distress - with audible wheezing, well-developed, well-nourished Head exam: PRESENT: atraumatic, normocephalic Eye exam: PRESENT: conjunctiva pink, EOMI, PERRLA. ABSENT: scleral icterus Mouth exam: PRESENT: moist Teeth exam: PRESENT: poor dentition Respiratory exam: PRESENT: decreased breath sounds, rhonchi - scattered and bilateral Cardiovascular exam: PRESENT: irregular rhythm. S1+, S2+ Vascular exam: PRESENT: normal capillary refill. ABSENT: pallor GI/Abdominal exam: PRESENT: normal bowel sounds, soft. ABSENT: distended, guarding, mass, organomegaly, rebound, tenderness Extremities exam: ABSENT: pedal edema Musculoskeletal exam: PRESENT: deformity - due to multiple joints involvement with arthritis Neurological exam: PRESENT: alert, awake, oriented to person, oriented to place , oriented to time, oriented to situation, CN II-XII grossly intact. ABSENT: motor sensory deficit Psychiatric exam: PRESENT: appropriate affect, normal mood. ABSENT: homicidal ideation, suicidal ideation Skin exam: PRESENT: dry, intact, warm. ABSENT: cyanosis, rash Results Laboratory Results: 11/14/17 06:24 11/14/17 06:24 Impressions: Chest X-Ray 11/12/17 08:31 IMPRESSION: Cardiomegaly. No overt congestive heart failure or active infiltrate. Assessment & Plan - Diagnosis (1) Chronic obstructive pulmonary disease with (acute) exacerbation Is this a current diagnosis for this admission?: Yes (2) Atrial fibrillation with rapid ventricular response Is this a current diagnosis for this admission?: Yes (3) Congestive heart failure (CHF) Qualifiers: Congestive heart failure type: systolic Congestive heart failure chronicity : chronic Qualified Code(s): I50.22 - Chronic systolic (congestive) heart failure Is this a current diagnosis for this admission?: Yes (4) HTN (hypertension) Qualifiers: Hypertension type: essential hypertension Qualified Code(s): I10 - Essential (primary) hypertension Is this a current diagnosis for this admission?: Yes (5) HLD (hyperlipidemia) Qualifiers: Hyperlipidemia type: pure hypercholesterolemia Qualified Code(s): E78.00 - Pure hypercholesterolemia, unspecified; E78.0 - Pure hypercholesterolemia Is this a current diagnosis for this admission?: Yes (6) CAD (coronary artery disease) Qualifiers: Coronary Disease-Associated Artery/Lesion type: unspecified vessel or lesion type [place] vs. transplanted heart: [place] heart Associated angina: without angina Qualified Code(s): I25.10 - Atherosclerotic heart disease of [place] coronary artery without angina pectoris (7) S/P CABG (coronary artery bypass graft) Is this a current diagnosis for this admission?: Yes (8) Nicotine dependence, cigarettes, with other nicotine-induced disorders Is this a current diagnosis for this admission?: Yes - Time Time Spent with patient: 25-34 minutes Medications reviewed and adjusted accordingly: Yes Anticipated discharge: Home Within: within 72 hours - Inpatient Certification Based on my medical assessment, after consideration of the patient's comorbidities, presenting symptoms, or acuity I expect that the services needed warrant INPATIENT care.: Yes I certify that my determination is in accordance with my understanding of Medicare's requirements for reasonable and necessary INPATIENT services [42 CFR 412.3e].: Yes Medical Necessity: Need Close Monitoring Due to Risk of Patient Decompensation, Need For Continuous Telemetry Monitoring, Need for Nebulizer Therapy and Monitoring of Response, Need for IV Antibiotics, Risk of Complication if Not Cared For in Hospital Post Hospital Care: D/C Manager Rehab Documentation - Plan Summary Plan Summary: Decrease IV Solu Medrol to 40 mg q 8 hours. Change Cardizem to 60 mg p.o q 6 hours. Start on IV N/S at 75 ml / hour. Continue all other current medication management.
[2017-11-15] MEDS: NORMAL SALINE 1000 ML 1,000 ML IV PRN (20:42)
[2017-11-15] MEDS: METHYLPREDNISOLONE INJ 40 MG/1 ML SDV IV SCH (21:46)
[2017-11-15] MEDS: LEVOFLOXACIN 500 MG TABLET PO SCH (21:46)
[2017-11-16 04:55] LABS: ABSOLUTE LYMPHOCYTES (AUTO) 1.2 10^3/uL (0.5-4.7); ABSOLUTE MONOCYTES (AUTO) 0.9 10^3/uL (0.1-1.4); ABSOLUTE NEUT (AUTO) 10.7 10^3/uL (1.7-8.2); BASOPHILS % (AUTO) 0.2 % (0-2); HEMATOCRIT 40.5 % (37.9-51.0); HEMOGLOBIN 13.9 g/dL (13.5-17.0); LYMPHOCYTES % (AUTO) 9.3 % (13-45); MEAN CORPUSCULAR HGB CONC 34.4 g/dL (32.0-36.0); MEAN CORPUSCULAR VOLUME 87 fl (80-97); MONOCYTES % (AUTO) 6.8 % (3-13); PLATELET COUNT 225 10^3/uL (150-450); RED BLOOD COUNT 4.63 10^6/uL (4.35-5.55); RED CELL DISTRIBUTION WIDTH 13.5 % (11.5-14.0); SEGMENTED NEUTROPHILS % (AUTO) 83.7 % (42-78); TOTAL CELLS COUNTED % (AUTO) 100 %; WHITE BLOOD COUNT 12.8 10^3/uL (4.0-10.5)
[2017-11-16 05:21] LABS: ANION GAP 7 (5-19); BLOOD UREA NITROGEN 28 mg/dL (7-20); CALCIUM 8.9 mg/dL (8.4-10.2); CARBON DIOXIDE 27 mmol/L (22-30); CHLORIDE 104 mmol/L (98-107); DIGOXIN 0.76 ng/mL (0.8-2.0); GLUCOSE 146 mg/dL (75-110); POTASSIUM 4.2 mmol/L (3.6-5.0); SODIUM 137.5 mmol/L (137-145)
[2017-11-16] MEDS: METHYLPREDNISOLONE INJ 40 MG/1 ML SDV IV SCH ×3 (06:49→21:28)
[2017-11-16] MEDS: DILTIAZEM HCL 60 MG TABLET PO SCH ×4 (06:49→23:29)
[2017-11-16] MEDS: DABIGATRAN ETEXILATE 150 MG CAPSULE PO SCH ×2 (10:47→21:28)
[2017-11-16] MEDS: DIGOXIN 0.125 MG TABLET PO SCH (10:47)
--- NOTE | 2017-11-16 13:33 | PDOC PROGRESS REPORT ---
Subjective Progress Note for:: 11/16/17 Subjective:: Patient was admitted for the management of acute COPD exacerbation, atrial fibrillation with rapid ventricular response, he was seen by the bedside, still requiring IV Solu-Medrol Reason For Visit: CHRONIC ATRIAL FIBRILLATION WITH RVR, EXACERBATED Physical Exam Vital Signs: Temp Pulse Resp BP Pulse Ox 97.6 F 111 H 18 111/54 L 96 11/16/17 11:43 11/16/17 11:43 11/16/17 11:43 11/16/17 11:43 11/16/17 11:43 Intake & Output 11/15/17 11/16/17 11/17/17 06:59 06:59 06:59 Intake Total 1516 2384 Output Total 1400 1750 Balance 116 634 Weight 69.9 kg 68.7 kg General appearance: PRESENT: mild distress Eye exam: PRESENT: PERRLA Respiratory exam: PRESENT: wheezes Cardiovascular exam: PRESENT: +S1, +S2 GI/Abdominal exam: PRESENT: soft Neurological exam: PRESENT: alert, CN II-XII grossly intact Results Laboratory Results: 11/16/17 04:31 11/16/17 04:31 11/16/17 11/16/17 04:31 04:31 WBC 12.8 H RBC 4.63 Hgb 13.9 Hct 40.5 MCV 87 MCH 30.0 MCHC 34.4 RDW 13.5 Plt Count 225 Seg Neutrophils % 83.7 H Lymphocytes % 9.3 L Monocytes % 6.8 Eosinophils % 0.0 Basophils % 0.2 Absolute Neutrophils 10.7 H Absolute Lymphocytes 1.2 Absolute Monocytes 0.9 Absolute Eosinophils 0.0 Absolute Basophils 0.0 Sodium 137.5 Potassium 4.2 Chloride 104 Carbon Dioxide 27 Anion Gap 7 BUN 28 H Creatinine 0.77 Est GFR ( Amer) > 60 Est GFR (Non-Af Amer) > 60 Glucose 146 H Calcium 8.9 Impressions: Chest X-Ray 11/12/17 08:31 IMPRESSION: Cardiomegaly. No overt congestive heart failure or active infiltrate. Assessment & Plan - Diagnosis (1) Atrial fibrillation with rapid ventricular response Is this a current diagnosis for this admission?: Yes (2) Chronic obstructive pulmonary disease with (acute) exacerbation Is this a current diagnosis for this admission?: Yes - Plan Summary Plan Summary: Patient will continue IV Solu-Medrol, and other medications
[2017-11-16] MEDS: OXYCODONE-ACETAMINOPHEN 5-325 MG TABLET PO PRN (20:30)
[2017-11-16] MEDS: LEVOFLOXACIN 500 MG TABLET PO SCH (21:28)
[2017-11-17] MEDS: NORMAL SALINE 1000 ML 1,000 ML IV PRN (01:06)
[2017-11-17] MEDS: LEVALBUTEROL HCL NEB 1.25 MG/3 ML AMPUL NEB PRN (06:09)
[2017-11-17] MEDS ORDERED: FUROSEMIDE INJ/PF 40 MG/4 ML SDV ONE (06:15)
[2017-11-17] MEDS: METHYLPREDNISOLONE INJ 40 MG/1 ML SDV IV SCH ×3 (06:23→21:36)
[2017-11-17] MEDS: DILTIAZEM HCL 60 MG TABLET PO SCH ×4 (06:23→23:38)
[2017-11-17] MEDS ORDERED: FUROSEMIDE INJ/PF 40 MG/4 ML SDV IV ONE (08:30)
[2017-11-17] MEDS: DIGOXIN 0.125 MG TABLET PO SCH (09:34)
[2017-11-17] MEDS: DABIGATRAN ETEXILATE 150 MG CAPSULE PO SCH ×2 (09:34→21:36)
--- NOTE | 2017-11-17 17:21 | PDOC PROGRESS REPORT ---
Subjective Progress Note for:: 11/17/17 Subjective:: Patient is alert seen by the bedside Reason For Visit: CHRONIC ATRIAL FIBRILLATION WITH RVR, EXACERBATED Physical Exam Vital Signs: Temp Pulse Resp BP Pulse Ox 97.7 F 70 16 118/57 L 95 11/17/17 15:56 11/17/17 15:56 11/17/17 15:56 11/17/17 15:56 11/17/17 15:56 Intake & Output 11/16/17 11/17/17 11/18/17 06:59 06:59 06:59 Intake Total 2384 3336 Output Total 1750 2075 Balance 634 1261 Weight 68.7 kg 71 kg General appearance: PRESENT: no acute distress Head exam: PRESENT: atraumatic, normocephalic Eye exam: PRESENT: PERRLA Neck exam: PRESENT: full ROM Respiratory exam: PRESENT: clear to auscultation nelson Cardiovascular exam: PRESENT: RRR, +S1, +S2 Vascular exam: PRESENT: normal capillary refill GI/Abdominal exam: PRESENT: normal bowel sounds, soft Rectal exam: PRESENT: deferred Neurological exam: PRESENT: alert, CN II-XII grossly intact Results Laboratory Results: 11/16/17 04:31 11/16/17 04:31 Impressions: Chest X-Ray 11/12/17 08:31 IMPRESSION: Cardiomegaly. No overt congestive heart failure or active infiltrate. Assessment & Plan - Diagnosis (1) Atrial fibrillation with rapid ventricular response Is this a current diagnosis for this admission?: Yes (2) Chronic obstructive pulmonary disease with (acute) exacerbation Is this a current diagnosis for this admission?: Yes
[2017-11-17] MEDS: LEVOFLOXACIN 500 MG TABLET PO SCH (21:36)
[2017-11-18] MEDS: METHYLPREDNISOLONE INJ 40 MG/1 ML SDV IV SCH ×2 (05:59→13:42)
[2017-11-18] MEDS: DILTIAZEM HCL 60 MG TABLET PO SCH ×2 (05:59→11:52)
[2017-11-18] MEDS: OXYCODONE-ACETAMINOPHEN 5-325 MG TABLET PO PRN (08:32)
[2017-11-18] MEDS: DABIGATRAN ETEXILATE 150 MG CAPSULE PO SCH (09:17)
[2017-11-18] MEDS: DIGOXIN 0.125 MG TABLET PO SCH (09:18)
--- NOTE | 2017-11-18 14:35 | PDOC DISCHARGE SUMMARY ---
General - Admit/Disc Date/PCP Admission Date/Primary Care Provider: 11/12/17 11:00 Discharge Date: 11/18/17 - Discharge Diagnosis (1) Chronic obstructive pulmonary disease with (acute) exacerbation Is this a current diagnosis for this admission?: Yes (2) Atrial fibrillation with rapid ventricular response Is this a current diagnosis for this admission?: Yes (3) Congestive heart failure (CHF) Is this a current diagnosis for this admission?: Yes (4) HTN (hypertension) Is this a current diagnosis for this admission?: Yes (5) HLD (hyperlipidemia) Is this a current diagnosis for this admission?: Yes (7) S/P CABG (coronary artery bypass graft) Is this a current diagnosis for this admission?: Yes (8) Nicotine dependence, cigarettes, with other nicotine-induced disorders Is this a current diagnosis for this admission?: Yes - Additional Information Discharge Diet: Cardiac Discharge Activity: Activity As Tolerated Prescriptions: Dabigatran Etexilate Mesylate [Pradaxa 150 mg Capsule] 150 mg PO Q12 #60 capsule Digoxin [Lanoxin 0.125 mg Tablet] 0.125 mg PO DAILY #30 tablet Diltiazem HCl [Cardizem Cd 120 mg Capsule] 120 mg PO Q12 #60 cap.sr.24h Levalbuterol HCl [Xopenex Neb 1.25 mg/3 ml Ampul] 1.25 mg NEB RTQ4HP PRN #100 vial.neb PRN Reason: For Wheezing Levofloxacin [Levaquin 500 mg Tablet] 500 mg PO DAILY #5 tablet Prednisone 5 mg PO ASDIR PRN #22 tablet PRN Reason: Umeclidinium Brm/Vilanterol Tr [Anoro Ellipta 62.5-25 Mcg INH] 1 each IH DAILY # 30 blst.w.dev Home Medications: Oxycodone HCl/Acetaminophen [Percocet 7.5-325 mg Tablet] 1 tab PO Q6HP PRN 11/12 Dabigatran Etexilate Mesylate [Pradaxa 150 mg Capsule] 150 mg PO Q12 #60 capsule 11/18/17 Digoxin [Lanoxin 0.125 mg Tablet] 0.125 mg PO DAILY #30 tablet 11/18/17 Diltiazem HCl [Cardizem Cd 120 mg Capsule] 120 mg PO Q12 #60 cap.sr.24h 01/15/ 18 Levalbuterol HCl [Xopenex Neb 1.25 mg/3 ml Ampul] 1.25 mg NEB RTQ4HP PRN #100 vial.neb 11/18/17 Levofloxacin [Levaquin 500 mg Tablet] 500 mg PO DAILY #5 tablet 11/18/17 Prednisone 5 mg PO ASDIR PRN #22 tablet 11/18/17 Umeclidinium Brm/Vilanterol Tr [Anoro Ellipta 62.5-25 Mcg INH] 1 each IH DAILY # 30 blst.w.dev 11/18/17 History of Present Illness History of Present Illness: RUKHSANA GRAHAM is a 67 year old male known to my practice who has been noncompliant with medical care follow up due to reported transportation problem but do attend pain management clinic! Presented to the ED earlier today via EMS service due to worsening difficulty with breathing. EMS crew did administered bronchodilator and IV Solu Medrol therapy en route to the ED. His initial evaluation in the ED was remarkable for atrial fibrillation with RVR and ongoing difficulty with breathing that necessitate BiPAP therapy along with IV Steroid and bronchodilator therapy. Patient do have history of chronic atrial fibrillation and COPD. He claimed that he only take Digoxin. He quit cigarette smoking yesterday! He denied any associated chest pain. He admitted to palpitation, lightheadedness, and dizziness. He denied nausea, vomiting, headache or loss of consciousness. His other morbidities include Congestive Heart Failure, Coronary Artery Disease, Old Myocardial infarction, Hx Heart Attack - 2010, history of Cerebrovascular Accident without residual motor deficit, Right eye blindness, Degenerative joint disease with chronic pain syndrome, Skin cancer, Coronary Artery Bypass Graft, and coronary stent angioplasty Hospital Course Hospital Course: Patient did respond to IV Cardizem drip therapy and subsequent transition to oral dosing. He will be discharged home on Cardizem CD 120 mg po bid. He will remain on all of his other preadmission medication therapy. There was concern about exacerbated COPD upon presentation which was managed with IV Solu Medrol and Xopenex therapy. He will be discharge home Xopenex neb therapy [id number] and tapering dose of Prednisone. He na be stared on Anoro Ellipta 62.5/2.5 mcg 1 IH po daily. He will be prescribed Nebulizer machine for usage Xopenex and management of COPD. Physical Exam Vital Signs: Temp Pulse Resp BP Pulse Ox 98.3 F 126 H 18 131/58 H 97 11/18/17 11:31 11/18/17 11:31 11/18/17 11:31 11/18/17 11:31 11/18/17 11:31 Intake & Output 11/17/17 11/18/17 11/19/17 06:59 06:59 06:59 Intake Total 3336 1953 Output Total 2075 1275 Balance 1261 678 Weight 71 kg 71.9 kg Physical Exam: General appearance: PRESENT: no acute distress, mild distress - with audible wheezing, well-developed, well-nourished Head exam: PRESENT: atraumatic, normocephalic Eye exam: PRESENT: conjunctiva pink, EOMI, PERRLA. ABSENT: scleral icterus Mouth exam: PRESENT: moist Teeth exam: PRESENT: poor dentition Respiratory exam: PRESENT: decreased breath sounds, rhonchi - scattered and bilateral Cardiovascular exam: PRESENT: irregular rhythm. S1+, S2+ Vascular exam: PRESENT: normal capillary refill. ABSENT: pallor GI/Abdominal exam: PRESENT: normal bowel sounds, soft. ABSENT: distended, guarding, mass, organomegaly, rebound, tenderness Extremities exam: ABSENT: pedal edema Musculoskeletal exam: PRESENT: deformity - due to multiple joints involvement with arthritis Neurological exam: PRESENT: alert, awake, oriented to person, oriented to place , oriented to time, oriented to situation, CN II-XII grossly intact. ABSENT: motor sensory deficit Psychiatric exam: PRESENT: appropriate affect, normal mood. ABSENT: homicidal ideation, suicidal ideation Skin exam: PRESENT: dry, intact, warm. ABSENT: cyanosis, rash Results Laboratory Results: 11/16/17 04:31 11/16/17 04:31 Impressions: Chest X-Ray 11/12/17 08:31 IMPRESSION: Cardiomegaly. No overt congestive heart failure or active infiltrate. Qualifiers PATEINT BEING DISCHARGED WITH ANY OF THE FOLLOWING DIAGNOSIS?: No Plan Discharge Plan: Patient will be discharged home today with home Health Service for medication management and compliance overview at home. Follow up in the office as instructed upon discharge.
[2017-11-18 15:39] VITALS: BP 122/85
== END 2017-11-18 16:20 | disposition home health service (06) | DRG 191 ==
LOC: ER 08:28 → EH 11:00 → 3S 11-13 18:02
PROVIDERS: ADMIT Internal Medicine Geriatric Medicine; ATTEND Internal Medicine Geriatric Medicine
DX: J44.1 Chronic obstructive pulmonary disease with (acute) exacerbation (principal); I50.22 Chronic systolic (congestive) heart failure; I11.0 Hypertensive heart disease with heart failure; I48.2 Chronic atrial fibrillation; E78.5 Hyperlipidemia, unspecified; I25.10 Atherosclerotic heart disease of native coronary artery without angina pectoris; G89.4 Chronic pain syndrome; E78.00 Pure hypercholesterolemia, unspecified; H54.40 Blindness, one eye, unspecified eye; M19.90 Unspecified osteoarthritis, unspecified site; Z79.899 Other long term (current) drug therapy; Z86.73 Personal history of transient ischemic attack (TIA), and cerebral infarction without residual deficits; Z87.891 Personal history of nicotine dependence; Z95.1 Presence of aortocoronary bypass graft; I25.2 Old myocardial infarction; Z95.5 Presence of coronary angioplasty implant and graft; Z85.828 Personal history of other malignant neoplasm of skin; Z88.0 Allergy status to penicillin; Z88.8 Allergy status to other drugs, medicaments and biological substances
CPT/HCPCS: 36415; 71045; 80048; 80053; 80061; 80162; 81001; 82803; 83605; 83880; 84484; 85025; 85610; 87040; 87086; 90686; 93005; 93010; 94640; 96365; 96366; 96376; 99291; J1940; J1956; J2920; J2930; J3490; J7030; J7620

== ENCOUNTER 2018-02-27 13:22 | Emergency (ER) | payer MEDICARE, MEDICAID ==
[2018-02-27] MEDS ORDERED: MORPHINE SULFATE 10 MG/ML INJ IV ONE (14:32)
[2018-02-27] MEDS ORDERED: ONDANSETRON HCL INJ/PF 4 MG/2 ML SDV IV ONE (14:32)
[2018-02-27 15:54] LABS: ABSOLUTE BASOPHILS # (AUTO) 0.1 10^3/uL (0.0-0.2); ABSOLUTE EOSINOPHILS # (AUTO) 0.1 10^3/uL (0.0-0.6); ABSOLUTE LYMPHOCYTES (AUTO) 1.4 10^3/uL (0.5-4.7); ABSOLUTE MONOCYTES (AUTO) 0.7 10^3/uL (0.1-1.4); ABSOLUTE NEUT (AUTO) 10.4 10^3/uL (1.7-8.2); BASOPHILS % (AUTO) 0.7 % (0-2); EOSINOPHILS % (AUTO) 0.6 % (0-6); MEAN CORPUSCULAR HEMOGLOBIN 31.2 pg (27.0-33.4); MEAN CORPUSCULAR HGB CONC 34.7 g/dL (32.0-36.0); MEAN CORPUSCULAR VOLUME 90 fl (80-97); MONOCYTES % (AUTO) 5.2 % (3-13); PLATELET COUNT 234 10^3/uL (150-450); RED BLOOD COUNT 5.11 10^6/uL (4.35-5.55); RED CELL DISTRIBUTION WIDTH 13.3 % (11.5-14.0); SEGMENTED NEUTROPHILS % (AUTO) 82.5 % (42-78); TOTAL CELLS COUNTED % (AUTO) 100 %; WHITE BLOOD COUNT 12.6 10^3/uL (4.0-10.5)
[2018-02-27 16:06] LABS: ANION GAP 12 (5-19); BLOOD UREA NITROGEN 19 mg/dL (7-20); CALCIUM 10.1 mg/dL (8.4-10.2); CARBON DIOXIDE 31 mmol/L (22-30); CHLORIDE 105 mmol/L (98-107); GLUCOSE 109 mg/dL (75-110); POTASSIUM 4.8 mmol/L (3.6-5.0)
[2018-02-27] MEDS ORDERED: DIPH/PERTUSS(ACELL)/TETANUS VAC/PF 0.5 ML SYR (>=10YO) IM ONE (17:02)
--- NOTE | 2018-02-27 17:10 | RADIOLOGY REPORT (SQ) ---
EXAM DESCRIPTION: CT CHEST WITH COMPLETED DATE/TIME: 02/27/2018 4:54 pm REASON FOR STUDY: Fall, injury to the left chest wall and left side COMPARISON: None. TECHNIQUE: CT scan of the chest performed using helical scanning technique with dynamic intravenous contrast injection. Images reviewed with lung, soft tissue and bone windows. Reconstructed coronal and sagittal MPR images reviewed. All images stored on PACS. All CT scanners at this facility use dose modulation, iterative reconstruction, and/or weight based d osing when appropriate to reduce radiation dose to as low as reasonably achievable (ALARA). [facility]: Dose Right [facility]: CareDose [facility]: Dose Right [facility]: Teradose 4D [facility]: Cap That CONTRAST TYPE AND DOSE: 75 cc Isovue 370- low osmolar. RENAL FUNCTION: BUN 15 creatinine 1.1 RADIATION DOSE: CT Rad equipment meets quality standard of care and radiation dose reduction techniq ues were employed. CTDIvol: 6.6 - 9.4 mGy. DLP: 891 mGy-cm. . LIMITATIONS: None. FINDINGS: LUNGS AND PLEURA: Pleural/parenchymal scarring in the left base. Minimal left pleural eff usion. HILAR AND MEDIASTINAL STRUCTURES: No identified masses or abnormal nodes. HEART AND VASCULAR STRUCTURES: No aneurysm or dissection. No central pulmonary emboli. No pericardi al effusion. HARDWARE: None in the chest. UPPER ABDOMEN: Cholelithiasis. THYROID AND OTHER SOFT TISSUES: No masses. No adenopathy. BONES: No significant finding. OTHER: No other significant finding. IMPRESSION: 1. Mild pleural/ parenchymal scarring in the left base with a minimal left pleural effu rylan. No rib fractures. No pneumothorax. 2. Cholelithiasis. TECHNICAL DOCUMENTATION: JOB ID: [id number] Quality ID # [id number]: Final reports with documentation of one or more dose reduction techniques (e.g., Au tomated exposure control, adjustment of the mA and/or kV according to patient size, use of iterative reconstruction technique) 2010 [employer]- All Rights Reserved Reading location - IP/workstation name: [email or web address]
--- NOTE | 2018-02-27 17:17 | RADIOLOGY REPORT (SQ) ---
EXAM DESCRIPTION: CT ABD/PELVIS WITH IV ONLY COMPLETED DATE/TIME: 02/27/2018 4:55 pm REASON FOR STUDY: Fall, injury to the left chest wall and left side COMPARISON: None. TECHNIQUE: CT scan of the abdomen and pelvis performed using helical scanning technique with dynamic intravenous contrast injection. No oral contrast. Images reviewed with lung, soft tissue, and bone windows. Reconstructed coronal and sagittal MPR images reviewed. Delayed images for evaluation of the urinary system also acquired. All images stored on PACS. All CT scanners at this facility use dose modulation, iterative reconstruction, and/or weight based d osing when appropriate to reduce radiation dose to as low as reasonably achievable (ALARA). [facility]: Dose Right [facility]: CareDose [facility]: Dose Right [facility]: Teradose 4D [facility]: [place] CONTRAST TYPE AND DOSE: contrast/concentration: Isovue 370.00 mg/ml; Total Contrast Delivered: 75.0 ml; Total Saline Delivered: 67.0 ml RENAL FUNCTION: BUN 15 creatinine 0.1 RADIATION DOSE: . LIMITATIONS: None. FINDINGS: LOWER CHEST: See separate report of the CT of the chest. LIVER: Normal size. No masses. No dilated ducts. SPLEEN: Normal size. No focal lesions. PANCREAS: No masses. No significant calcifications. No adjacent inflammation or peripancreatic fluid collections. Pancreatic duct not dilated. GALLBLADDER: Multiple small gallstones. There is no ductal dilatation. ADRENAL GLANDS: No significant masses or asymmetry. RIGHT KIDNEY AND URETER: No solid masses. No significant calcifications. No hydronephrosis or hyd roureter. LEFT KIDNEY AND URETER: No solid masses. No significant calcifications. No hydronephrosis or hydr oureter. AORTA AND VESSELS: No aneurysm. No dissection. Renal arteries, SMA, celiac without stenosis. RETROPERITONEUM: No retroperitoneal adenopathy, hemorrhage or masses. BOWEL AND PERITONEAL CAVITY: No masses or inflammatory changes. No free fluid or peritoneal masses. APPENDIX: Normal. PELVIS: No mass. No free fluid. Normal bladder. ABDOMINAL WALL: No masses. No hernias. BONES: No significant or acute findings. OTHER: No other significant finding. IMPRESSION: 1. Cholelithiasis. 2. No acute findings are seen in the abdomen or pelvis. TECHNICAL DOCUMENTATION: JOB ID: [id number] Quality ID # [id number]: Final reports with documentation of one or more dose reduction techniques (e.g., Au tomated exposure control, adjustment of the mA and/or kV according to patient size, use of iterative reconstruction technique) 2010 [employer]- All Rights Reserved Reading location - IP/workstation name: [email or web address]
--- NOTE | 2018-02-27 17:53 | RADIOLOGY REPORT (SQ) ---
EXAM DESCRIPTION: HIP LEFT AP/LATERAL COMPLETED DATE/TIME: 02/27/2018 5:39 pm REASON FOR STUDY: left hip pain s/p fall COMPARISON: None. NUMBER OF VIEWS: Two views. TECHNIQUE: AP pelvis and additional frog-leg view of the left hip. LIMITATIONS: None. FINDINGS: MINERALIZATION: Normal. LEFT HIP: No fracture or dislocation. No worrisome bone lesions. RIGHT HIP: No fracture or dislocation. No worrisome bone lesions. PUBIS AND ISCHIUM: No fracture. PELVIS: No fracture. SACRUM: No fracture or dislocation. No worrisome bone lesions. LOWER LUMBAR SPINE: No fracture or dislocation. No worrisome bone lesions. No significant disc disea se. SOFT TISSUES: No findings. OTHER: No other significant finding. IMPRESSION: NEGATIVE STUDY OF THE LEFT HIP AND PELVIS. NO RADIOGRAPHIC EVIDENCE OF ACUTE INJURY. TECHNICAL DOCUMENTATION: JOB ID: [id number] [employer]- All Rights Reserved Reading location - IP/workstation name: [email or web address]
[2018-02-27 18:02] LABS: APPEARANCE,URINE CLEAR; BILIRUBIN,URINE NEGATIVE (NEGATIVE); COLOR,URINE YELLOW; GLUCOSE, URINE NEGATIVE (NEGATIVE); KETONES,URINE NEGATIVE (NEGATIVE); LEUKOCYTE ESTERASE,URINE NEGATIVE (NEGATIVE); NITRITE,URINE NEGATIVE (NEGATIVE); PROTEIN,URINE NEGATIVE (NEGATIVE); URINE SPECIFIC GRAVITY 1.048
[2018-02-27 19:13] VITALS: BP 129/89
--- NOTE | 2018-02-27 19:18 | ER Document Report ---
ED General - General Chief Complaint: Rib Pain Stated Complaint: FALL/RIB PAIN Time Seen by Provider: 02/27/18 14:04 Mode of Arrival: Ambulatory Information source: Patient Notes: This is a 67-year-old man that presents with left flank pain after falling. Patient states he tripped over a log. He denies any alcohol use. He denies hitting his head and denies headache. Patient does have an abrasion to the left hand as well as a contusion to the left chest wall. He denies any shortness of breath, vomiting or abdominal pain. TRAVEL OUTSIDE OF THE [place] IN LAST 30 DAYS: No - Related Data Allergies/Adverse Reactions: Penicillins Allergy (Severe, Verified 07/15/16 10:34) turned blue as infant hydrocodone bitartrate [From Vicodin] Allergy (Intermediate, Verified 07/15/16 10:34) N & V acetaminophen [From Tylenol] Allergy (Verified 11/12/17 20:20) aspirin Allergy (Verified 11/12/17 20:20) Past Medical History - Social History Smoking Status: Current Every Day Smoker Chew tobacco use (# tins/day): No Frequency of alcohol use: None Drug Abuse: None Family History: Reviewed & Not Pertinent Patient has suicidal ideation: No Patient has homicidal ideation: No - Past Medical History Cardiac Medical History: Reports: Hx Atrial Fibrillation, Hx Congestive Heart Failure, Hx Coronary Artery Disease, Hx Heart Attack - 2010 Pulmonary Medical History: Reports: Hx COPD Neurological Medical History: Reports: Hx Cerebrovascular Accident - 2009 Renal/ Medical History: Denies: Hx Peritoneal Dialysis Malignancy Medical History: Reports Hx Skin Cancer Musculoskeltal Medical History: Reports Hx Arthritis Psychiatric Medical History: Denies: Hx Depression Past Surgical History: Reports: Hx Cardiac Catheterization - stent, Hx Coronary Artery Bypass Graft - 11/2011, Hx Coronary Stent - Immunizations Hx Diphtheria, Pertussis, Tetanus Vaccination: No Hx Pneumococcal Vaccination: 11/04/11 Physical Exam - Vital signs Vitals: Resp 16 02/27/18 13:33 Notes: Physical exam: GENERAL: 67-year-old man, he is alert and 3, no acute distress. HEAD: Atraumatic, normocephalic. EYES: Pupils equal round and reactive to light, extraocular movements intact, sclera anicteric, conjunctiva are normal. ENT: TMs normal, nares patent, oropharynx clear without exudates. Moist mucous membranes. NECK: Normal range of motion, supple without obvious mass or JVD. LUNGS: Breath sounds clear to auscultation bilaterally and equal. No wheezes rales or rhonchi. HEART: Regular rate and rhythm without murmurs, rubs or gallops. Chest wall: Patient does have some chest wall tenderness below the nipple anteriorly, there is no crepitus. He does have an abrasion over that area. ABDOMEN: Soft, normoactive bowel sounds. No tenderness to palpation. No guarding, no rebound. No masses appreciated. EXTREMITIES: Patient does have tenderness over the left hip to palpation (over the greater trochanter). He does have range of motion at both hips. Distal pulses are intact. NEUROLOGICAL: Cranial nerves II through XII grossly intact. Normal speech, moving all extremities. PSYCH: Normal mood, normal affect. SKIN: Patient does have an abrasion over the left thenar eminence Course - Vital Signs Vital signs: Temp Pulse Resp BP Pulse Ox 98.0 F 23 H 129/89 H 94 02/27/18 18:56 02/27/18 19:01 02/27/18 19:01 02/27/18 19:01 - Laboratory Result Diagrams: 02/27/18 15:45 02/27/18 15:45 Laboratory results interpreted by me: 02/27/18 02/27/18 02/27/18 15:45 15:45 17:50 WBC 12.6 H Seg Neutrophils % 82.5 H Lymphocytes % 11.0 L Absolute Neutrophils 10.4 H Sodium 148.0 H Carbon Dioxide 31 H Urine Urobilinogen 4.0 H - Diagnostic Test Radiology reviewed: Image reviewed, Reports reviewed Discharge - Discharge Clinical Impression: Contusion left chest and flank, Abrasion to the hand, Contusion left hip Condition: Stable Disposition: HOME, SELF-CARE Additional Instructions: As we discussed, the CAT scan of your chest and abdomen showed no rib fractures or any injury to the lung. There was no injury to the abdomen as well. The x-rays of the hip showed no fractures. You were given a tetanus shot and you will not need one for 5-10 years. Keep the hand clean with soap and water. Take pain medicine as prescribed. Return to the emergency room for worsening pain, shortness of breath or any concerns or getting worse. Follow-up with Dr. Contreras early next week. The pain medicine you're taking prescribed as a narcotic. There are several important things you should know about this medicine: 1. This medicine contains Tylenol: It is important that you do not take Tylenol (or acetaminophen) while on this medicine. Tylenol is metabolized by the liver and taking too much Tylenol (acetaminophen) can lay to liver damage and even liver failure. 2. Taking narcotics for too long can lead to physical and mental dependence. Take this medicine only if really needed and in the lowest quantity to achieve pain relief. 3. Do not drink alcohol while on this medicine. Alcohol interacts with narcotics and the combination can be dangerous. 4. Do not drive or operate machinery while on this medicine. 5. Narcotics do cause constipation, so drink plenty of fluids and daily stool softeners. Prescriptions: Oxycodone HCl/Acetaminophen [Percocet 5-325 mg Tablet] 1 - 2 tab PO ASDIR PRN # 15 tablet PRN Reason: Referrals: DEYSI CONTRERAS MD [Primary Care Provider] - 03/03/18
== END 2018-02-27 19:30 | disposition home or self-care (01) ==
LOC: ER 13:22
DX: S60.512A Abrasion of left hand, initial encounter (principal); R07.81 Pleurodynia; R10.9 Unspecified abdominal pain; W22.8XXA Striking against or struck by other objects, initial encounter; F17.200 Nicotine dependence, unspecified, uncomplicated; I25.10 Atherosclerotic heart disease of native coronary artery without angina pectoris; I25.2 Old myocardial infarction; J44.9 Chronic obstructive pulmonary disease, unspecified; S20.212A Contusion of left front wall of thorax, initial encounter; S70.02XA Contusion of left hip, initial encounter
CPT/HCPCS: 99284; 90471; 96374; 96375; 36415; 85025; 80048; 81001; 73502; 71260; 74177; 90715; J2270; J2405

== ENCOUNTER 2018-10-15 17:18 | Inpatient (IN) | payer MEDICARE, MEDICAID ==
--- NOTE | 2018-10-15 18:11 | ER Document Report ---
ED Medical Screen (RME) - General Chief Complaint: Shortness Of Breath Stated Complaint: CHEST PAIN Time Seen by Provider: 10/15/18 18:07 Notes: Patient presents complaining of chest pain for the past 2 days with shortness of breath. Patient does report a previous history of NV in the past. Patient poor historian is uncertain of his previous medical history. Review of charts demonstrates the patient does have a history of NV as well as A. fib. I have greeted and performed a rapid initial assessment of this patient. A comprehensive ED assessment and evaluation of the patient, analysis of test results and completion of the medical decision making process will be conducted by additional ED providers. TRAVEL OUTSIDE OF THE [place] IN LAST 30 DAYS: No - Related Data Allergies/Adverse Reactions: Penicillins Allergy (Severe, Verified 07/15/16 10:34) turned blue as hydrocodone bitartrate [From Vicodin] Allergy (Intermediate, Verified 07/15/16 10:34) N & V acetaminophen [From Tylenol] Allergy (Verified 11/12/17 20:20) aspirin Allergy (Verified 11/12/17 20:20) Past Medical History - Past Medical History Cardiac Medical History: Reports: Hx Atrial Fibrillation, Hx Congestive Heart Failure, Hx Coronary Artery Disease, Hx Heart Attack - 2010 Pulmonary Medical History: Reports: Hx COPD Neurological Medical History: Reports: Hx Cerebrovascular Accident - 2009 Renal/ Medical History: Denies: Hx Peritoneal Dialysis Malignancy Medical History: Reports Hx Skin Cancer Musculoskeltal Medical History: Reports Hx Arthritis Psychiatric Medical History: Denies: Hx Depression Past Surgical History: Reports: Hx Cardiac Catheterization - stent, Hx Coronary Artery Bypass Graft - 11/2011, Hx Coronary Stent - Immunizations Hx Diphtheria, Pertussis, Tetanus Vaccination: No History of Influenza Vaccine for 08/2017 - 01/2018 Season: No Physical Exam - Vital signs Vitals: Temp Pulse Resp Pulse Ox 98.4 F 140 H 20 98 10/15/18 17:30 10/15/18 17:30 10/15/18 17:30 10/15/18 17:30 - Cardiovascular Rhythm: Irregularly irregular, Tachycardia Course - Re-evaluation Re-evalutation: 10/15/18 18:10 Report handoff given to Dr. Whatley - Vital Signs Vital signs: Temp Pulse Resp BP Pulse Ox 98.4 F 140 H 20 98 10/15/18 17:30 10/15/18 17:30 10/15/18 17:30 10/15/18 17:30 Doctor's Discharge - Discharge Referrals: DEYSI CONTRERAS MD [Primary Care Provider] - Follow up as needed
--- NOTE | 2018-10-15 18:15 | ER Document Report ---
ED Cardiac - General Chief Complaint: Shortness Of Breath Stated Complaint: CHEST PAIN Time Seen by Provider: 10/15/18 18:15 Mode of Arrival: Medic Information source: Patient, Emergency Med Personnel Notes: Patient is a 68-year-old male with multiple chronic health conditions including COPD, CHF, and coronary artery disease status post bypass who presents with chest tightness and shortness of breath worse with exertion over the past several days. Patient reports mild productive cough, denies fevers or chills, no weakness of the extremities. He also reports elevated heart rate consistent with his history of atrial fibrillation. He reports taking both diltiazem and digoxin. TRAVEL OUTSIDE OF THE [place] IN LAST 30 DAYS: No - HPI Patient complains to provider of: Chest tightness, Shortness of breath Was the onset of pain: Gradual Is the pain a: New problem Chest pain location: Pleuritic, Under breast Quality of pain: Constant, Mild, Tightness. denies: Heaviness Chest pain radiation location: None Severity now: None Severity at worst: Mild Pain level currently: Denies Chest pain precipitating factors: Coughing Cardiac risk factors: Hypertension, Smoker, Dyslipidemia, Hx CHF, Hx DE Positive cardiac history: Yes Associated symptoms: Shortness of breath. denies: Edema, Nausea/vomiting Exacerbated by: Activity, Coughing Relieved by: Rest Similar symptoms previously: No Recently seen / treated by doctor: No - Related Data Allergies/Adverse Reactions: Penicillins Allergy (Severe, Verified 07/15/16 10:34) turned blue as infant hydrocodone bitartrate [From Vicodin] Allergy (Intermediate, Verified 07/15/16 10:34) N & V acetaminophen [From Tylenol] Allergy (Verified 11/12/17 20:20) aspirin Allergy (Verified 11/12/17 20:20) Past Medical History - General Information source: Patient - Social History Smoking Status: Former Smoker Chew tobacco use (# tins/day): No Frequency of alcohol use: None Drug Abuse: None Lives with: Alone Family History: Reviewed & Not Pertinent Patient has suicidal ideation: No Patient has homicidal ideation: No - Past Medical History Cardiac Medical History: Reports: Hx Atrial Fibrillation, Hx Congestive Heart Failure, Hx Coronary Artery Disease, Hx Heart Attack - 2010 Pulmonary Medical History: Reports: Hx COPD EENT Medical History: Reports: None Neurological Medical History: Reports: Hx Cerebrovascular Accident - 2009 Endocrine Medical History: Reports: None Renal/ Medical History: Reports: None. Denies: Hx Peritoneal Dialysis Malignancy Medical History: Reports Hx Skin Cancer GI Medical History: Reports: None Musculoskeletal Medical History: Reports Hx Arthritis Skin Medical History: Reports None Psychiatric Medical History: Reports: None Denies: Hx Depression Traumatic Medical History: Reports: None Infectious Medical History: Reports: None Past Surgical History: Reports: Hx Cardiac Catheterization - stent, Hx Coronary Artery Bypass Graft - 11/2011, Hx Coronary Stent - Immunizations Immunizations up to date: Yes Hx Diphtheria, Pertussis, Tetanus Vaccination: No Hx Pneumococcal Vaccination: 11/04/11 Review of Systems - Review of Systems Constitutional: No symptoms reported EENT: No symptoms reported Cardiovascular: See HPI, Chest pain, Palpitations, Dyspnea. denies: Syncope Respiratory: See HPI, Cough, Short of breath, Sputum, Wheezing Gastrointestinal: No symptoms reported Genitourinary: No symptoms reported Male Genitourinary: No symptoms reported Musculoskeletal: No symptoms reported Skin: No symptoms reported Hematologic/Lymphatic: No symptoms reported Neurological/Psychological: No symptoms reported -: Yes All other systems reviewed and negative Physical Exam - Vital signs Vitals: Pulse Ox 97 10/15/18 17:24 Interpretation: Normal - General General appearance: Alert, Other - Appears tired In distress: Mild - HEENT Head: Normocephalic, Atraumatic Eyes: Normal Pupils: PERRL - Respiratory Respiratory status: No respiratory distress Chest status: Nontender Breath sounds: Decreased air movement, Nonproductive cough, Rhonchi, Wheezing. No: Rales, Stridor Chest palpation: Normal - Cardiovascular Rhythm: Irregularly irregular, Tachycardia Heart sounds: Normal auscultation Murmur: No Pulses: Normal: Radial, Carotid, Femoral Normal capillary refill: Yes - Abdominal Inspection: Normal Distension: No distension Bowel sounds: Normal Tenderness: Nontender Organomegaly: No organomegaly - Rectal Notes: Deferred - Genitourinary Notes: Deferred - Back Back: Normal, Nontender - Extremities General upper extremity: Normal inspection, Nontender, Normal color, Normal ROM , Normal temperature General lower extremity: Normal inspection, Nontender, Normal color, Normal ROM , Normal temperature, Normal weight bearing. No: Gonzalo's sign - Neurological Neuro grossly intact: Yes Cognition: Normal Orientation: AAOx4 [place] Coma Scale Eye Opening: Spontaneous Linda Coma Scale Verbal: Oriented Linda Coma Scale Motor: Obeys Commands Linda Coma Scale Total: 15 Speech: Normal Motor strength normal: LUE, RUE, LLE, RLE Sensory: Normal - Psychological Associated symptoms: Normal affect, Normal mood - Skin Skin Temperature: Warm Skin Moisture: Dry Skin Color: Normal Course - Re-evaluation Re-evalutation: 10/15/18 19:34 Plan to obtain chest pain labs, give Douneb treatments with Solumedrol, and admit. 10/15/18 22:13 X-ray shows evidence of mild edema but no obvious an infiltrate or consolidation. Lab work shows mildly elevated BNP but negative cardiac enzymes. Patient was given IV azithromycin along with Lasix and is admitted to the hospital. - Vital Signs Vital signs: Temp Pulse Resp BP Pulse Ox 98.1 F 138 H 28 H 122/95 H 92 10/15/18 19:00 10/15/18 19:00 10/15/18 20:01 10/15/18 20:01 10/15/18 20:01 - Laboratory Result Diagrams: 10/15/18 17:27 10/15/18 17:27 Laboratory results interpreted by me: 10/15/18 10/15/18 10/15/18 17:27 17:27 17:27 RBC 4.26 L Direct Bilirubin 0.5 H NT-Pro-B Natriuret Pep 2280 H Digoxin < 0.40 L - Diagnostic Test Radiology reviewed: Reports reviewed - EKG Interpretation by Me Rate: Tachycardia Rhythm: A.Fib [place]/QRS: No: Right axis deviation, Left axis deviation, LBBB P Waves: Absent Heart block present: No: 1st Degree, Mobitz 1, Mobitz 2, CHB (3rd degree block) - Consults Dr. Dunn Time consulted: 22:14 - will admit Consulted provider: will come to ER Discharge - Discharge Clinical Impression: COPD exacerbation, Atrial fibrillation with rapid ventricular response Congestive heart failure (CHF) Qualifiers: Qualified Code(s): I50.22 - Chronic systolic (congestive) heart failure Condition: Stable Disposition: ADMITTED INPATIENT Admitting Provider: Hospitalist Unit Admitted: IMCU Referrals: DEYSI CONTRERAS MD [Primary Care Provider] - Follow up as needed
[2018-10-15 18:16] LABS: ABSOLUTE BASOPHILS # (AUTO) 0.1 10^3/uL (0.0-0.2); ABSOLUTE EOSINOPHILS # (AUTO) 0.1 10^3/uL (0.0-0.6); ABSOLUTE LYMPHOCYTES (AUTO) 1.7 10^3/uL (0.5-4.7); ABSOLUTE MONOCYTES (AUTO) 0.6 10^3/uL (0.1-1.4); ABSOLUTE NEUT (AUTO) 6.3 10^3/uL (1.7-8.2); BASOPHILS % (AUTO) 0.8 % (0-2); EOSINOPHILS % (AUTO) 1.4 % (0-6); HEMATOCRIT 39.1 % (37.9-51.0); HEMOGLOBIN 13.7 g/dL (13.5-17.0); LYMPHOCYTES % (AUTO) 19.4 % (13-45); MEAN CORPUSCULAR HEMOGLOBIN 32.3 pg (27.0-33.4); MEAN CORPUSCULAR HGB CONC 35.2 g/dL (32.0-36.0); MEAN CORPUSCULAR VOLUME 92 fl (80-97); MONOCYTES % (AUTO) 6.6 % (3-13); PLATELET COUNT 208 10^3/uL (150-450); RED BLOOD COUNT 4.26 10^6/uL (4.35-5.55); RED CELL DISTRIBUTION WIDTH 13.3 % (11.5-14.0); SEGMENTED NEUTROPHILS % (AUTO) 71.8 % (42-78); TOTAL CELLS COUNTED % (AUTO) 100 %; WHITE BLOOD COUNT 8.7 10^3/uL (4.0-10.5)
[2018-10-15 18:26] LABS: INTERNATIONAL RATION (INR) 1.09; PROTHROMBIN TIME 14.6 SEC (11.4-15.4)
[2018-10-15 18:27] LABS: PARTIAL THROMBOPLASTIN TIME 32.4 SEC (23.5-35.8)
--- NOTE | 2018-10-15 18:29 | RADIOLOGY REPORT (SQ) ---
EXAM DESCRIPTION: CHEST SINGLE VIEW COMPLETED DATE/TIME: 10/15/2018 6:17 pm REASON FOR STUDY: cp COMPARISON: 07/15/2016. NUMBER OF VIEWS: One view. TECHNIQUE: Single frontal radiographic view of the chest acquired. LIMITATIONS: None. FINDINGS: LUNGS AND PLEURA: Diffuse interstitial prominence. No focal infiltrates, masses or pneumo thorax. No pleural effusion. MEDIASTINUM AND HILAR STRUCTURES: No masses or contour abnormality. HEART AND VASCULATURE: Cardiac enlargement. Mild vascular congestion. BONES: No acute findings. HARDWARE: Sternotomy wires. OTHER: No other significant finding. IMPRESSION: STABLE CARDIOMEGALY WITH DIFFUSE INTERSTITIAL PROMINENCE LIKELY DUE TO CHRONIC SCARRING WITH MILD INTERSTITIAL EDEMA. TECHNICAL DOCUMENTATION: JOB ID: [id number] [employer]- All Rights Reserved Reading location - IP/workstation name: [email or web address]
[2018-10-15 18:30] LABS: ALANINE AMINOTRANSFERASE 24 U/L (21-72); ALBUMIN 4.2 g/dL (3.5-5.0); ALKALINE PHOSPHATASE 59 U/L (38-126); ANION GAP 9 (5-19); ASPARTATE AMINO TRANSFERASE 23 U/L (17-59); BILIRUBIN,DIRECT 0.5 mg/dL (0.0-0.4); BLOOD UREA NITROGEN 18 mg/dL (7-20); CALCIUM 9.5 mg/dL (8.4-10.2); CARBON DIOXIDE 27 mmol/L (22-30); CHLORIDE 107 mmol/L (98-107); CREATINE KINASE 99 U/L (55-170); DIGOXIN < 0.40 ng/mL (0.8-2.0); GLUCOSE 102 mg/dL (75-110); POTASSIUM 4.5 mmol/L (3.6-5.0); SODIUM 142.5 mmol/L (137-145); TOTAL PROTEIN 7.5 g/dL (6.3-8.2)
[2018-10-15 18:40] LABS: CREATINE KINASE MB 1.66 ng/mL (<4.55); TROPONIN I 0.027 ng/mL
[2018-10-15] MEDS ORDERED: DILTIAZEM HCL INJ 25 MG/5 ML VIAL IV ONE ×2 (18:46→20:08)
[2018-10-15] MEDS ORDERED: IPRATROPIUM/ALBUTEROL 0.5-2.5 MG/3 ML AMPUL NEB ONE (18:46)
[2018-10-15] MEDS ORDERED: NORMAL SALINE 1000 ML 1,000 ML IV ONE (18:46)
[2018-10-15] MEDS ORDERED: METHYLPREDNISOLONE INJ 125 MG/2 ML SDV IV ONE (18:46)
[2018-10-15] MEDS ORDERED: ONDANSETRON HCL INJ/PF 4 MG/2 ML SDV IV ONE (19:39)
--- NOTE | 2018-10-15 20:58 | EKG REPORT ---
SEVERITY:- ABNORMAL ECG - ATRIAL FIBRILLATION BORDERLINE RIGHT AXIS DEVIATION REPOLARIZATION ABNORMALITY, PROB RATE RELATED BORDERLINE PROLONGED QT INTERVAL : Confirmed by: Melisa Weiner MD 15-Oct-2018 20:57:19
[2018-10-15] MEDS ORDERED: FUROSEMIDE INJ/PF 40 MG/4 ML SDV IV ONE (21:29)
[2018-10-15] MEDS ORDERED: AZITHROMYCIN INJ 500 MG VIAL IV ONE (21:30)
[2018-10-15] MEDS ORDERED: MAGNESIUM HYDROXIDE SUSP 30 ML UDCUP PO PRN (22:09)
[2018-10-15] MEDS ORDERED: ONDANSETRON 4 MG TAB.RAPDIS PO PRN (22:09)
[2018-10-15] MEDS ORDERED: ONDANSETRON HCL INJ/PF 4 MG/2 ML SDV IV PRN (22:09)
[2018-10-15] MEDS ORDERED: MAG HYDROX/AL HYDROX/SIMETH SUSP 30 ML UDCUP PO PRN (22:09)
[2018-10-15] MEDS ORDERED: DIGOXIN INJ 0.5 MG/2 ML AMPULE IV ONE (22:45)
[2018-10-15] MEDS: BUDESONIDE NEB 0.5 MG/2 ML AMPUL NEB SCH (23:02)
[2018-10-16 00:10] LABS: CREATINE KINASE MB 1.83 ng/mL (<4.55); TROPONIN I 0.028 ng/mL
[2018-10-16] MEDS: IPRATROPIUM BROMIDE 0.02% NEB 0.5 MG/2.5 ML AMPUL NEB SCH ×3 (00:47→16:26)
[2018-10-16] MEDS: METHYLPREDNISOLONE INJ 40 MG/1 ML SDV IV SCH ×4 (01:38→19:48)
[2018-10-16 01:39] LABS: ARTERIAL BLOOD BASE EXCESS 0.7 mmol/L; ARTERIAL BLOOD H2CO3 1.15 mmol/L (1.05-1.35); ARTERIAL BLOOD HCO3 24.8 mmol/L (20-24); ARTERIAL BLOOD O2 SATURATION 95.6 % (94-98); ARTERIAL BLOOD PCO2 38.3 mmHg (35-45); ARTERIAL BLOOD PH 7.43 (7.35-7.45); ARTERIAL BLOOD PO2 75.7 mmHg (80-100)
[2018-10-16 01:40] LABS: ARTERIAL BLOOD FIO2 2L
--- NOTE | 2018-10-16 02:44 | PDOC H&P ---
History of Present Illness Admission Date/PCP: DEYSI CONTRERAS Patient complains of: Chest pain History of Present Illness: RUKHSANA GRAHAM is a 68 year old male who presents to the emergency room with a one-week history of chest pain. He describes the pain as a sharp stabbing pain in the slightly depressed area of his sternotomy scar on the anterior aspect of his chest. He states that the pain sometimes moves to the right or left of this area but it is always there when you push on the area. Pain has been intermittent in timing and of moderate to severe intensity. The pain lasts as long as a few minutes and a short as a few seconds. Over the last few days the pain has begun to last for a little longer period of time and he has experienced increased dyspnea and wheezing especially with exertion over that timeframe. He reports an associated minimally productive cough for the last day or 2 and some palpitations beginning on the evening prior to his arrival in the emergency room. In the emergency room he was found to have atrial fibrillation with a rapid ventricular response which responded to IV push dosing of diltiazem. His initial cardiac enzymes were within normal limits but his BNP pro was elevated at 2200. Patient was admitted for further evaluation of his chest pain as well as treatment of his COPD exacerbation. Past Medical History Cardiac Medical History: Reports: Atrial Fibrillation, Congestive Heart Failure , Coronary Artery Disease, Myocardial Infarction - 2010 Denies: DVT, Pulmonary Embolism Pulmonary Medical History: Reports: Chronic Obstructive Pulmonary Disease (COPD) , Pneumonia Denies: Asthma, Sleep Apnea EENT Medical History: Reports: None Neurological Medical History: Denies: Hemorrhagic CVA, Ischemic CVA, Seizures Endocrine Medical History: Denies: Diabetes Mellitus Type 1, Diabetes Mellitus Type 2 Renal/ Medical History: Denies: Chronic Kidney Disease, Nephrolithiasis Malignancy Medical History: Reports: Skin Cancer GI Medical History: Denies: Cirrhosis, Hepatitis Musculoskeltal Medical History: Reports: Arthritis Denies: Gout Skin Medical History: Denies: Eczema, Psoriasis Psychiatric Medical History: Reports: Tobacco Dependency Denies: Alcohol Dependency, Depression, Substance Abuse Traumatic Medical History: Reports: None Hematology: Denies: Anemia, Bleeding Tendencies Infectious Medical History: Reports: None Past Surgical History Past Surgical History: Reports: Cardiac Catheterization - stent, Coronary Artery Bypass Graft - 11/2011, Coronary Stent Social History Information Source: Patient Lives with: Alone Smoking Status: Former Smoker Frequency of Alcohol Use: None Hx Recreational Drug Use: No Drugs: None Hx Prescription Drug Abuse: No - Advance Directive Resuscitation Status: Full Code Family History Family History: CAD Parental Family History Reviewed: Yes Children Family History Reviewed: No Sibling(s) Family History Reviewed.: Yes Medication/Allergy Home Medications: Oxycodone HCl/Acetaminophen [Percocet 7.5-325 mg Tablet] 1 tab PO Q6HP PRN 11/12 Dabigatran Etexilate Mesylate [Pradaxa 150 mg Capsule] 150 mg PO Q12 #60 capsule 11/18/17 Digoxin [Lanoxin 0.125 mg Tablet] 0.125 mg PO DAILY #30 tablet 11/18/17 Diltiazem HCl [Cardizem Cd 120 mg Capsule] 120 mg PO Q12 #60 cap.sr.24h Levofloxacin [Levaquin 500 mg Tablet] 500 mg PO DAILY #5 tablet 11/18/17 Prednisone 5 mg PO ASDIR PRN #22 tablet 11/18/17 Oxycodone HCl/Acetaminophen [Percocet 5-325 mg Tablet] 1 - 2 tab PO ASDIR PRN # 15 tablet 02/27/18 Allergies/Adverse Reactions: Penicillins Allergy (Severe, Verified 07/15/16 10:34) turned blue as hydrocodone bitartrate [From Vicodin] Allergy (Intermediate, Verified 07/15/16 10:34) N & V acetaminophen [From Tylenol] Allergy (Verified 11/12/17 20:20) aspirin Allergy (Verified 11/12/17 20:20) Review of Systems Constitutional: ABSENT: chills, fever(s) Eyes: ABSENT: visual disturbances, other - Ocular pain Ears: ABSENT: hearing changes, other - Ear pain Nose, Mouth, and Throat: ABSENT: mouth pain, sore throat Cardiovascular: PRESENT: as per HPI, chest pain, dyspnea on exertion, palpitations. ABSENT: edema, orthropnea Respiratory: PRESENT: as per HPI, cough, dyspnea. ABSENT: hemoptysis Gastrointestinal: ABSENT: abdominal pain, constipation, diarrhea, nausea, vomiting Genitourinary: ABSENT: dysuria, hematuria Musculoskeletal: ABSENT: deformity, joint swelling Integumentary: ABSENT: pruritus, rash Neurological: ABSENT: confusion, convulsions, focal weakness, memory loss, syncope, tremor(s) Psychiatric: ABSENT: anxiety, depression Endocrine: ABSENT: cold intolerance, heat intolerance Hematologic/Lymphatic: ABSENT: easy bleeding, easy bruising Physical Exam Vital Signs: Temp Pulse Resp BP Pulse Ox 98.1 F 138 H 28 H 122/95 H 92 10/15/18 19:00 10/15/18 19:00 10/15/18 20:01 10/15/18 20:01 10/15/18 20:01 Intake & Output 10/13/18 10/14/18 10/15/18 23:59 23:59 23:59 Intake Total 1000 Balance 1000 General appearance: PRESENT: no acute distress, cooperative Head exam: PRESENT: atraumatic, normocephalic Eye exam: PRESENT: conjunctiva pink, EOMI. ABSENT: nystagmus, scleral icterus Ear exam: PRESENT: normal external ear exam. ABSENT: drainage Mouth exam: PRESENT: neck supple, other - Oral mucosa moist and intact, dentition in poor repair Neck exam: ABSENT: JVD, thyromegaly, tracheal deviation Respiratory exam: PRESENT: decreased breath sounds - Mild to moderate decreased breath sounds in all [place], prolonged expiratory phas - Mildly prolonged expiratory phase, symmetrical, wheezes - And expiratory wheezes in all [place]. ABSENT: rales, rhonchi Cardiovascular exam: PRESENT: irregular rhythm - Irregularly irregular rhythm, tachycardia. ABSENT: clicks, gallop, rubs Pulses: PRESENT: normal radial pulses, normal dorsalis pedis pul GI/Abdominal exam: PRESENT: normal bowel sounds, soft. ABSENT: tenderness Rectal exam: PRESENT: deferred Extremities exam: ABSENT: joint swelling, pedal edema Musculoskeletal exam: PRESENT: ambulatory. ABSENT: deformity, dislocation Neurological exam: PRESENT: alert, oriented to person, oriented to place, oriented to time, oriented to situation, CN II-XII grossly intact. ABSENT: motor sensory deficit Psychiatric exam: PRESENT: appropriate affect, normal mood Skin exam: PRESENT: dry, intact, warm. ABSENT: jaundice, rash, urticaria Results Laboratory Results: 10/15/18 17:27 10/15/18 17:27 10/15/18 10/15/18 17:27 17:27 WBC 8.7 RBC 4.26 L Hgb 13.7 Hct 39.1 MCV 92 MCH 32.3 MCHC 35.2 RDW 13.3 Plt Count 208 Seg Neutrophils % 71.8 Lymphocytes % 19.4 Monocytes % 6.6 Eosinophils % 1.4 Basophils % 0.8 Absolute Neutrophils 6.3 Absolute Lymphocytes 1.7 Absolute Monocytes 0.6 Absolute Eosinophils 0.1 Absolute Basophils 0.1 Sodium 142.5 Potassium 4.5 Chloride 107 Carbon Dioxide 27 Anion Gap 9 BUN 18 Creatinine 1.09 Est GFR ( Amer) > 60 Est GFR (Non-Af Amer) > 60 Glucose 102 Calcium 9.5 Magnesium 2.1 Total Bilirubin 1.0 AST 23 ALT 24 Alkaline Phosphatase 59 Total Protein 7.5 Albumin 4.2 10/15/18 10/15/18 17:27 17:27 Creatine Kinase 99 CK-MB (CK-2) 1.66 Troponin I 0.027 NT-Pro-B Natriuret Pep 2280 H Impressions: Chest X-Ray 10/15/18 18:08 IMPRESSION: STABLE CARDIOMEGALY WITH DIFFUSE INTERSTITIAL PROMINENCE LIKELY DUE TO CHRONIC SCARRING WITH MILD INTERSTITIAL EDEMA. Assessment & Plan - Diagnosis (1) Atrial fibrillation with rapid ventricular response Is this a current diagnosis for this admission?: Yes Plan: Patient was treated with diltiazem IV in the ER and was found to have a low digoxin level. He was given a single dose of IV digoxin 0.25 mg x1 and will be continued on his usual regimen for control of his atrial fibrillation rate. Further adjustments to his rate control will be made as required to maintain a well-controlled rate and good cardiac output. (2) Chest pain Qualifiers: Chest pain type: unspecified Qualified Code(s): R07.9 - Chest pain, unspecified Is this a current diagnosis for this admission?: Yes Plan: Patient will have serial cardiac enzymes obtained every 6 hours with further evaluation and intervention based upon the results of those tests. Patient's chest pain will be controlled with morphine sulfate administered IV on a sliding scale for pain control. (3) Chronic obstructive pulmonary disease with (acute) exacerbation Is this a current diagnosis for this admission?: Yes Plan: Patient will be treated with a reasonably aggressive pulmonary toilet utilizing Xopenex, Atrovent, Pulmicort and albuterol via nebulizers as well as IV Solu- Medrol. (4) HLD (hyperlipidemia) Qualifiers: Hyperlipidemia type: pure hypercholesterolemia Qualified Code(s): E78.00 - Pure hypercholesterolemia, unspecified; E78.0 - Pure hypercholesterolemia Is this a current diagnosis for this admission?: Yes Plan: Patient will be continued on his current statin therapy. A lipid profile will be obtained to assess the efficacy of that therapy. (5) HTN (hypertension) Qualifiers: Hypertension type: essential hypertension Qualified Code(s): I10 - Essential (primary) hypertension Is this a current diagnosis for this admission?: Yes Plan: Patient will be continued on his current antihypertensive regiment with reevaluation based upon his observed therapeutic response. (6) CAD (coronary artery disease) Qualifiers: Coronary Disease-Associated Artery/Lesion type: unspecified vessel or lesion type [place] vs. transplanted heart: [place] heart Associated angina: without angina Qualified Code(s): I25.10 - Atherosclerotic heart disease of [place] coronary artery without angina pectoris Is this a current diagnosis for this admission?: Yes Plan: Patient will be continued on his cardiac medications with further evaluation based upon his response to therapy and pain control. - Time Time Spent: 50 to 70 Minutes Medications reviewed and adjusted accordingly: Yes Anticipated discharge: Home - Inpatient Certification Medical Necessity: Significant Comorbidiites Make Outpatient Treatment Too Risky , Need Close Monitoring Due to Risk of Patient Decompensation, Need For Continuous Telemetry Monitoring, Need for Nebulizer Therapy and Monitoring of Response, Need for Pain Control, Risk of Complication if Not Cared For in Hospital
[2018-10-16 06:29] LABS: ABSOLUTE LYMPHOCYTES (AUTO) 0.7 10^3/uL (0.5-4.7); ABSOLUTE MONOCYTES (AUTO) 0.1 10^3/uL (0.1-1.4); BASOPHILS % (AUTO) 0.4 % (0-2); HEMATOCRIT 40.4 % (37.9-51.0); HEMOGLOBIN 13.8 g/dL (13.5-17.0); LYMPHOCYTES % (AUTO) 11.5 % (13-45); MEAN CORPUSCULAR HEMOGLOBIN 31.2 pg (27.0-33.4); MEAN CORPUSCULAR HGB CONC 34.2 g/dL (32.0-36.0); MEAN CORPUSCULAR VOLUME 91 fl (80-97); MONOCYTES % (AUTO) 0.9 % (3-13); PLATELET COUNT 199 10^3/uL (150-450); RED BLOOD COUNT 4.43 10^6/uL (4.35-5.55); RED CELL DISTRIBUTION WIDTH 13.4 % (11.5-14.0); SEGMENTED NEUTROPHILS % (AUTO) 87.2 % (42-78); TOTAL CELLS COUNTED % (AUTO) 100 %; WHITE BLOOD COUNT 5.8 10^3/uL (4.0-10.5)
[2018-10-16 06:53] LABS: ANION GAP 13 (5-19); BLOOD UREA NITROGEN 22 mg/dL (7-20); CALCIUM 9.6 mg/dL (8.4-10.2); CARBON DIOXIDE 24 mmol/L (22-30); CHLORIDE 107 mmol/L (98-107); CHOLESTEROL 196.72 mg/dL (0-200); CREATINE KINASE 80 U/L (55-170); DIGOXIN 1.02 ng/mL (0.8-2.0); GLUCOSE 157 mg/dL (75-110); POTASSIUM 4.3 mmol/L (3.6-5.0); TRIGLYCERIDES 61 mg/dL (<150)
[2018-10-16 06:57] LABS: FREE T3 3.21 pg/mL (2.77-5.27); FREE T4 (FREE THYROXINE) 1.44 ng/dL (0.78-2.19)
[2018-10-16 07:00] LABS: CREATINE KINASE MB 1.49 ng/mL (<4.55); TROPONIN I 0.018 ng/mL
[2018-10-16 07:02] LABS: DIRECT LDL 157 mg/dL (<100)
[2018-10-16 07:11] LABS: THYROID STIMULATING HORMONE 0.55 uIU/mL (0.47-4.68)
[2018-10-16] MEDS ORDERED: (PENDING PHARMACY ID) (Oxycodone Hcl/Acetaminophen [Percocet 7.5-325 Mg Tablet] 1 TAB) PO PRN (08:46)
[2018-10-16] MEDS: BUDESONIDE NEB 0.5 MG/2 ML AMPUL NEB SCH ×2 (08:48→20:21)
[2018-10-16] MEDS ORDERED: DIGOXIN 0.125 MG TABLET PO SCH (10:00)
[2018-10-16] MEDS: OXYCODONE HCL IR 5 MG TABLET PO PRN (11:17)
[2018-10-16] MEDS: OXYCODONE-ACETAMINOPHEN 5-325 MG TABLET PO PRN (11:17)
[2018-10-16] MEDS: FAMOTIDINE 20 MG TABLET PO SCH ×2 (11:18→21:07)
[2018-10-16] MEDS: DABIGATRAN ETEXILATE 150 MG CAPSULE PO SCH ×2 (11:18→21:08)
[2018-10-16] MEDS: DILTIAZEM HCL 120 MG CAP.SR.24H PO SCH ×2 (11:19→21:07)
[2018-10-16] MEDS: DIGOXIN 0.125 MG TABLET PO SCH (11:21)
[2018-10-16] MEDS: DOCUSATE SODIUM 100 MG CAPSULE PO SCH ×2 (11:21→19:48)
[2018-10-16] MEDS: LEVOFLOXACIN 500 MG TABLET PO SCH (11:24)
[2018-10-16 13:10] LABS: CREATINE KINASE MB 1.32 ng/mL (<4.55); TROPONIN I 0.013 ng/mL
--- NOTE | 2018-10-16 19:43 | PDOC PROGRESS REPORT ---
Subjective Progress Note for:: 10/16/18 Subjective:: Patient reported some improvement in his breathing. He denied chest pain but admitted to fluttering of his heart. No nausea or vomiting. No abdominal pain. He denied any alcohol or illicit drug abuse. He claimed compliance with his medication. Reason For Visit: ACUTE EXACERBATION OF COPD Physical Exam Vital Signs: Temp Pulse Resp BP Pulse Ox 97.4 F 116 H 14 104/69 96 10/16/18 16:39 10/16/18 16:39 10/16/18 16:39 10/16/18 16:39 10/16/18 16:39 Intake & Output 10/15/18 10/16/18 10/17/18 06:59 06:59 06:59 Intake Total 902 Output Total 450 250 Balance -450 652 Weight 70.5 kg General appearance: PRESENT: no acute distress Head exam: PRESENT: atraumatic, normocephalic Eye exam: PRESENT: conjunctiva pink, EOMI, PERRLA. ABSENT: scleral icterus Ear exam: PRESENT: normal external ear exam Mouth exam: PRESENT: moist Respiratory exam: PRESENT: clear to auscultation nelson, decreased breath sounds, rhonchi Cardiovascular exam: PRESENT: irregular rhythm, +S1, +S2 Vascular exam: PRESENT: normal capillary refill. ABSENT: pallor GI/Abdominal exam: PRESENT: normal bowel sounds, soft. ABSENT: distended, guarding, mass, organolmegaly, rebound, tenderness Extremities exam: ABSENT: pedal edema Musculoskeletal exam: PRESENT: deformity - due to multiple joints involvement with arthritis Neurological exam: PRESENT: alert, awake, oriented to person, oriented to place , oriented to time, oriented to situation, CN II-XII grossly intact. ABSENT: motor sensory deficit Psychiatric exam: PRESENT: appropriate affect, normal mood. ABSENT: homicidal ideation, suicidal ideation Skin exam: PRESENT: dry, warm, other - multiple actinic keratotic lesions on extremities and pigmented lesion on upper back region. Results Laboratory Results: 10/16/18 05:48 10/16/18 05:48 10/16/18 10/16/18 10/16/18 01:15 05:48 05:48 WBC 5.8 RBC 4.43 Hgb 13.8 Hct 40.4 MCV 91 MCH 31.2 MCHC 34.2 RDW 13.4 Plt Count 199 Seg Neutrophils % 87.2 H Lymphocytes % 11.5 L Monocytes % 0.9 L Eosinophils % 0.0 Basophils % 0.4 Absolute Neutrophils 5.0 Absolute Lymphocytes 0.7 Absolute Monocytes 0.1 Absolute Eosinophils 0.0 Absolute Basophils 0.0 Carbonic Acid 1.15 HCO3/H2CO3 Ratio 21:1 ABG pH 7.43 ABG pCO2 38.3 ABG pO2 75.7 L ABG HCO3 24.8 H ABG O2 Saturation 95.6 ABG Base Excess 0.7 FiO2 2L Sodium 144.0 Potassium 4.3 Chloride 107 Carbon Dioxide 24 Anion Gap 13 BUN 22 H Creatinine 1.24 Est GFR ( Amer) > 60 Est GFR (Non-Af Amer) 58 L Glucose 157 H Calcium 9.6 Magnesium 2.2 Triglycerides 61 Cholesterol 196.72 LDL Cholesterol Direct 157 H VLDL Cholesterol 12.0 HDL Cholesterol 41 TSH Free T4 Free T3 pg/mL 10/16/18 05:48 WBC RBC Hgb Hct MCV MCH MCHC RDW Plt Count Seg Neutrophils % Lymphocytes % Monocytes % Eosinophils % Basophils % Absolute Neutrophils Absolute Lymphocytes Absolute Monocytes Absolute Eosinophils Absolute Basophils Carbonic Acid HCO3/H2CO3 Ratio ABG pH ABG pCO2 ABG pO2 ABG HCO3 ABG O2 Saturation ABG Base Excess FiO2 Sodium Potassium Chloride Carbon Dioxide Anion Gap BUN Creatinine Est GFR ( Amer) Est GFR (Non-Af Amer) Glucose Calcium Magnesium Triglycerides Cholesterol LDL Cholesterol Direct VLDL Cholesterol HDL Cholesterol TSH 0.55 Free T4 1.44 Free T3 pg/mL 3.21 10/15/18 10/15/18 10/16/18 23:24 23:24 05:48 Creatine Kinase 101 80 CK-MB (CK-2) 1.83 Troponin I 0.028 NT-Pro-B Natriuret Pep 10/16/18 10/16/18 10/16/18 05:48 11:25 11:25 Creatine Kinase 73 CK-MB (CK-2) 1.49 1.32 Troponin I 0.018 0.013 NT-Pro-B Natriuret Pep 2770 H Impressions: Chest X-Ray 10/15/18 18:08 IMPRESSION: STABLE CARDIOMEGALY WITH DIFFUSE INTERSTITIAL PROMINENCE LIKELY DUE TO CHRONIC SCARRING WITH MILD INTERSTITIAL EDEMA. Assessment & Plan - Diagnosis (1) Chronic obstructive pulmonary disease with (acute) exacerbation Is this a current diagnosis for this admission?: Yes Plan: Continue IV Solu Medrol and bronchodilators therapy. Maintain on supplemental oxygen as necessary via nasal cannula. (2) Chronic atrial fibrillation with rapid ventricular response Is this a current diagnosis for this admission?: Yes Plan: Maintain on Diltiazem and Digoxin therapy. Emphasized compliance with medication administration. (3) HTN (hypertension) Qualifiers: Hypertension type: essential hypertension Qualified Code(s): I10 - Essential (primary) hypertension Is this a current diagnosis for this admission?: Yes Plan: Maintain on preadmission anti HTN medication. (4) CAD (coronary artery disease) Qualifiers: Coronary Disease-Associated Artery/Lesion type: unspecified vessel or lesion type [place] vs. transplanted heart: [place] heart Associated angina: without angina Qualified Code(s): I25.10 - Atherosclerotic heart disease of [place] coronary artery without angina pectoris Is this a current diagnosis for this admission?: Yes Plan: Continue current medication management. Monitor cardiac enzymes. The slight elevation may be due to demand and supply mismatch. (5) S/P CABG (coronary artery bypass graft) Is this a current diagnosis for this admission?: Yes Plan: Continue current medication management. (6) HLD (hyperlipidemia) Qualifiers: Hyperlipidemia type: pure hypercholesterolemia Qualified Code(s): E78.00 - Pure hypercholesterolemia, unspecified; E78.0 - Pure hypercholesterolemia Is this a current diagnosis for this admission?: Yes Plan: Continue current medication management. - Time Time Spent with patient: 25-34 minutes Medications reviewed and adjusted accordingly: Yes Anticipated discharge: Home with Homehealth Within: Other - Inpatient Certification Based on my medical assessment, after consideration of the patient's comorbidities, presenting symptoms, or acuity I expect that the services needed warrant INPATIENT care.: Yes I certify that my determination is in accordance with my understanding of Medicare's requirements for reasonable and necessary INPATIENT services [42 CFR 412.3e].: Yes Medical Necessity: Need Close Monitoring Due to Risk of Patient Decompensation, Need For IV Fluids, Need For Continuous Telemetry Monitoring, Need for Nebulizer Therapy and Monitoring of Response, Risk of Complication if Not Cared For in Hospital 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 See attending physician orders for details.
[2018-10-16 20:42] LABS: CREATINE KINASE MB 2.2 ng/mL (<4.55); TROPONIN I 0.014 ng/mL
[2018-10-16] MEDS: ATORVASTATIN CALCIUM 10 MG TABLET PO SCH (21:08)
--- NOTE | 2018-10-16 21:27 | EKG REPORT ---
SEVERITY:- ABNORMAL ECG - ATRIAL FIBRILLATION, V-RATE 83-170 PROLONGED QT INTERVAL : Confirmed by: Melisa Weiner MD 16-Oct-2018 21:25:59
[2018-10-17] MEDS: METHYLPREDNISOLONE INJ 40 MG/1 ML SDV IV SCH ×2 (00:28→06:09)
[2018-10-17] MEDS: IPRATROPIUM BROMIDE 0.02% NEB 0.5 MG/2.5 ML AMPUL NEB SCH ×3 (00:44→16:14)
[2018-10-17] MEDS: OXYCODONE-ACETAMINOPHEN 5-325 MG TABLET PO PRN ×3 (01:47→21:43)
[2018-10-17] MEDS: OXYCODONE HCL IR 5 MG TABLET PO PRN ×2 (01:48→10:49)
[2018-10-17 05:57] LABS: HEMATOCRIT 38.9 % (37.9-51.0); HEMOGLOBIN 13.4 g/dL (13.5-17.0); MEAN CORPUSCULAR HEMOGLOBIN 31.2 pg (27.0-33.4); MEAN CORPUSCULAR HGB CONC 34.4 g/dL (32.0-36.0); MEAN CORPUSCULAR VOLUME 91 fl (80-97); PLATELET COUNT 211 10^3/uL (150-450); RED BLOOD COUNT 4.29 10^6/uL (4.35-5.55); RED CELL DISTRIBUTION WIDTH 13.3 % (11.5-14.0)
[2018-10-17 06:19] LABS: ANION GAP 11 (5-19); BLOOD UREA NITROGEN 31 mg/dL (7-20); CALCIUM 9.7 mg/dL (8.4-10.2); CARBON DIOXIDE 26 mmol/L (22-30); CHLORIDE 103 mmol/L (98-107); DIGOXIN 0.55 ng/mL (0.8-2.0); GLUCOSE 176 mg/dL (75-110); SODIUM 139.9 mmol/L (137-145)
[2018-10-17 06:20] LABS: WHITE BLOOD COUNT 18.5 10^3/uL (4.0-10.5)
[2018-10-17 06:23] LABS: ABSOLUTE LYMPHOCYTES# (MANUAL) 0.9 10^3/uL (0.5-4.7); ABSOLUTE MONOCYTES # (MANUAL) 0.4 10^3/uL (0.1-1.4); ABSOLUTE NEUTROPHILS# (MANUAL) 17.2 10^3/uL (1.7-8.2); BASOPHILS % (MANUAL) 0 % (0-2); EOSINOPHILS % (MANUAL) 0 % (0-6); LYMPHOCYTES % (MANUAL) 5 % (13-45); MONOCYTES % (MANUAL) 2 % (3-13); SEGMENTED NEUTROPHILS % (MAN) 93 % (42-78); TOTAL CELLS COUNTED 100
[2018-10-17 06:24] LABS: RBC MORPHOLOGY COMMENT NORMO-CYTIC/CHROMIC
[2018-10-17 06:25] LABS: PLATELET COMMENT ADEQUATE
[2018-10-17] MEDS: BUDESONIDE NEB 0.5 MG/2 ML AMPUL NEB SCH ×2 (08:14→20:13)
[2018-10-17] MEDS ORDERED: (PENDING PHARMACY ID) (Pravastatin Sodium [Pravachol] 40 MG) PO SCH (10:00)
[2018-10-17] MEDS: DABIGATRAN ETEXILATE 150 MG CAPSULE PO SCH ×2 (10:47→21:44)
[2018-10-17] MEDS: DIGOXIN 0.125 MG TABLET PO SCH (10:48)
[2018-10-17] MEDS: FAMOTIDINE 20 MG TABLET PO SCH ×2 (10:49→21:44)
[2018-10-17] MEDS: DOCUSATE SODIUM 100 MG CAPSULE PO SCH ×2 (10:49→18:38)
[2018-10-17] MEDS: LEVOFLOXACIN 500 MG TABLET PO SCH (10:49)
[2018-10-17] MEDS: DILTIAZEM HCL 120 MG CAP.SR.24H PO SCH ×2 (10:49→21:45)
--- NOTE | 2018-10-17 15:58 | PDOC PROGRESS REPORT ---
Subjective Progress Note for:: 10/17/18 Subjective:: Patient reported improvement in his breathing. No chest pain. No nausea, vomiting or abdominal pain. No dizziness or headache. Reason For Visit: ACUTE EXACERBATION OF COPD Physical Exam Vital Signs: Temp Pulse Resp BP Pulse Ox 97.8 F 135 H 18 99/70 L 98 10/17/18 10:53 10/17/18 10:53 10/17/18 10:53 10/17/18 10:53 10/17/18 10:53 Intake & Output 10/16/18 10/17/18 10/18/18 06:59 06:59 06:59 Intake Total 902 375 Output Total 450 650 150 Balance -450 252 225 Weight 70.5 kg 71.2 kg Physical Exam: General appearance: PRESENT: no acute distress Head exam: PRESENT: atraumatic, normocephalic Eye exam: PRESENT: conjunctiva pink, EOMI, PERRLA. ABSENT: pallor, scleral icterus Ear exam: PRESENT: normal external ear exam Mouth exam: PRESENT: moist Respiratory exam: PRESENT: clear to auscultation nelson, decreased breath sounds, rhonchi Cardiovascular exam: PRESENT: irregular rhythm, +S1, +S2 GI/Abdominal exam: PRESENT: normal bowel sounds, soft. ABSENT: distended, guarding, mass, organomegaly, rebound, tenderness Extremities exam: ABSENT: pedal edema Musculoskeletal exam: PRESENT: deformity - due to multiple joints involvement with arthritis Neurological exam: PRESENT: alert, awake, oriented to person, oriented to place , oriented to time, oriented to situation, CN II-XII grossly intact. ABSENT: motor sensory deficit Psychiatric exam: PRESENT: appropriate affect, normal mood. ABSENT: homicidal ideation, suicidal ideation Skin exam: PRESENT: dry, warm, other - multiple actinic keratotic lesions on extremities and pigmented lesion on upper back region. Results Laboratory Results: 10/17/18 05:38 10/17/18 05:38 10/17/18 10/17/18 05:38 05:38 WBC 18.5 H D RBC 4.29 L Hgb 13.4 L Hct 38.9 MCV 91 MCH 31.2 MCHC 34.4 RDW 13.3 Plt Count 211 Seg Neutrophils % Not Reportable Lymphocytes % Not Reportable Monocytes % Not Reportable Eosinophils % Not Reportable Basophils % Not Reportable Absolute Neutrophils Not Reportable Absolute Lymphocytes Not Reportable Absolute Monocytes Not Reportable Absolute Eosinophils Not Reportable Absolute Basophils Not Reportable Sodium 139.9 Potassium 5.0 Chloride 103 Carbon Dioxide 26 Anion Gap 11 BUN 31 H Creatinine 1.12 Est GFR ( Amer) > 60 Est GFR (Non-Af Amer) > 60 Glucose 176 H Calcium 9.7 Magnesium 2.2 10/15/18 10/15/18 10/16/18 23:24 23:24 05:48 Creatine Kinase 101 80 CK-MB (CK-2) 1.83 Troponin I 0.028 NT-Pro-B Natriuret Pep 10/16/18 10/16/18 10/16/18 05:48 11:25 11:25 Creatine Kinase 73 CK-MB (CK-2) 1.49 1.32 Troponin I 0.018 0.013 NT-Pro-B Natriuret Pep 2770 H 10/16/18 10/16/18 20:05 20:05 Creatine Kinase 225 H CK-MB (CK-2) 2.20 Troponin I 0.014 NT-Pro-B Natriuret Pep Impressions: Chest X-Ray 10/15/18 18:08 IMPRESSION: STABLE CARDIOMEGALY WITH DIFFUSE INTERSTITIAL PROMINENCE LIKELY DUE TO CHRONIC SCARRING WITH MILD INTERSTITIAL EDEMA. Assessment & Plan - Diagnosis (1) Chronic obstructive pulmonary disease with (acute) exacerbation Is this a current diagnosis for this admission?: Yes Plan: Transition to oral Prednisone therapy. (2) Chronic atrial fibrillation with rapid ventricular response Is this a current diagnosis for this admission?: Yes Plan: Administer extra dose of Digoxin in view of his low normal asymptomatic blood pressure and tachycardia due to his chronic atrial fibrillation. (3) HTN (hypertension) Qualifiers: Hypertension type: essential hypertension Qualified Code(s): I10 - Essential (primary) hypertension Is this a current diagnosis for this admission?: Yes (4) CAD (coronary artery disease) Qualifiers: Coronary Disease-Associated Artery/Lesion type: unspecified vessel or lesion type [place] vs. transplanted heart: [place] heart Associated angina: without angina Qualified Code(s): I25.10 - Atherosclerotic heart disease of [place] coronary artery without angina pectoris Is this a current diagnosis for this admission?: Yes (5) S/P CABG (coronary artery bypass graft) Is this a current diagnosis for this admission?: Yes (6) HLD (hyperlipidemia) Qualifiers: Hyperlipidemia type: pure hypercholesterolemia Qualified Code(s): E78.00 - Pure hypercholesterolemia, unspecified; E78.0 - Pure hypercholesterolemia Is this a current diagnosis for this admission?: Yes - Time Time Spent with patient: 25-34 minutes Medications reviewed and adjusted accordingly: Yes Anticipated discharge: Home with Homehealth Within: Other - Inpatient Certification Based on my medical assessment, after consideration of the patient's comorbidities, presenting symptoms, or acuity I expect that the services needed warrant INPATIENT care.: Yes I certify that my determination is in accordance with my understanding of Medicare's requirements for reasonable and necessary INPATIENT services [42 CFR 412.3e].: Yes Medical Necessity: Need Close Monitoring Due to Risk of Patient Decompensation, Need For Continuous Telemetry Monitoring, Need for Nebulizer Therapy and Monitoring of Response, Risk of Complication if Not Cared For in Hospital 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 Maintain on all other current medication management. His leukocytosis is probable due to IV Solu Medrol administration. Request PT evaluation for deconditioning.
[2018-10-17] MEDS ORDERED: DIGOXIN 0.25 MG TABLET PO ONE ×2 (16:30→19:00)
[2018-10-17] MEDS: ATORVASTATIN CALCIUM 10 MG TABLET PO SCH (21:44)
[2018-10-18] MEDS: IPRATROPIUM BROMIDE 0.02% NEB 0.5 MG/2.5 ML AMPUL NEB SCH ×3 (00:17→16:37)
[2018-10-18 06:26] LABS: ABSOLUTE LYMPHOCYTES (AUTO) 1.3 10^3/uL (0.5-4.7); ABSOLUTE MONOCYTES (AUTO) 1.1 10^3/uL (0.1-1.4); ABSOLUTE NEUT (AUTO) 15.4 10^3/uL (1.7-8.2); BASOPHILS % (AUTO) 0.2 % (0-2); HEMATOCRIT 41.4 % (37.9-51.0); HEMOGLOBIN 14.2 g/dL (13.5-17.0); LYMPHOCYTES % (AUTO) 7.4 % (13-45); MEAN CORPUSCULAR HEMOGLOBIN 31.5 pg (27.0-33.4); MEAN CORPUSCULAR HGB CONC 34.4 g/dL (32.0-36.0); MEAN CORPUSCULAR VOLUME 92 fl (80-97); PLATELET COUNT 186 10^3/uL (150-450); RED BLOOD COUNT 4.52 10^6/uL (4.35-5.55); RED CELL DISTRIBUTION WIDTH 13.5 % (11.5-14.0); SEGMENTED NEUTROPHILS % (AUTO) 86.4 % (42-78); TOTAL CELLS COUNTED % (AUTO) 100 %; WHITE BLOOD COUNT 17.8 10^3/uL (4.0-10.5)
[2018-10-18 06:47] LABS: ANION GAP 11 (5-19); BLOOD UREA NITROGEN 34 mg/dL (7-20); CALCIUM 9.7 mg/dL (8.4-10.2); CARBON DIOXIDE 26 mmol/L (22-30); CHLORIDE 102 mmol/L (98-107); DIGOXIN 1.25 ng/mL (0.8-2.0); GLUCOSE 156 mg/dL (75-110); POTASSIUM 4.4 mmol/L (3.6-5.0); SODIUM 138.5 mmol/L (137-145)
[2018-10-18] MEDS: BUDESONIDE NEB 0.5 MG/2 ML AMPUL NEB SCH ×2 (08:23→19:51)
[2018-10-18] MEDS: DOCUSATE SODIUM 100 MG CAPSULE PO SCH ×2 (11:32→19:44)
[2018-10-18] MEDS: FAMOTIDINE 20 MG TABLET PO SCH ×2 (11:32→22:14)
[2018-10-18] MEDS: DILTIAZEM HCL 120 MG CAP.SR.24H PO SCH ×2 (11:32→22:14)
[2018-10-18] MEDS: DABIGATRAN ETEXILATE 150 MG CAPSULE PO SCH ×2 (11:32→22:14)
[2018-10-18] MEDS: DIGOXIN 0.125 MG TABLET PO SCH (11:32)
[2018-10-18] MEDS: LEVOFLOXACIN 500 MG TABLET PO SCH (11:33)
[2018-10-18] MEDS: VANCOMYCIN HCL 750 MG in DEXTROSE 5%-WATER 250 ML IV SCH (14:00)
[2018-10-18] MEDS ORDERED: VANCOMYCIN HCL 0 MG in DEXTROSE 5%-WATER 250 ML IV NR (16:15)
--- NOTE | 2018-10-18 16:18 | PDOC PROGRESS REPORT ---
Subjective Progress Note for:: 10/18/18 Subjective:: Patient denied chest pain. Breathing is improving. No nausea, vomiting or abdominal pain. No fever or chills. Reason For Visit: ACUTE EXACERBATION OF COPD Physical Exam Vital Signs: Temp Pulse Resp BP Pulse Ox 97.5 F 74 16 105/65 97 10/18/18 03:23 10/18/18 08:23 10/18/18 08:23 10/18/18 03:23 10/18/18 08:23 Intake & Output 10/17/18 10/18/18 10/19/18 06:59 06:59 06:59 Intake Total 902 1342 513 Output Total 650 1360 200 Balance 252 -18 313 Weight 71.2 kg 72.1 kg Physical Exam: General appearance: PRESENT: no acute distress Head exam: PRESENT: atraumatic, normocephalic Eye exam: PRESENT: conjunctiva pink, EOMI, PERRLA. ABSENT: pallor, scleral icterus Ear exam: PRESENT: normal external ear exam Mouth exam: PRESENT: moist Respiratory exam: PRESENT: clear to auscultation nelson, decreased breath sounds Cardiovascular exam: PRESENT: irregular rhythm, +S1, +S2 GI/Abdominal exam: PRESENT: normal bowel sounds, soft. ABSENT: distended, guarding, mass, organomegaly, rebound, tenderness Extremities exam: ABSENT: pedal edema Musculoskeletal exam: PRESENT: deformity - due to multiple joints involvement with arthritis Neurological exam: PRESENT: alert, awake, oriented to person, oriented to place , oriented to time, oriented to situation, CN II-XII grossly intact. ABSENT: motor sensory deficit Psychiatric exam: PRESENT: appropriate affect, normal mood. ABSENT: homicidal ideation, suicidal ideation Skin exam: PRESENT: dry, warm, other - multiple actinic keratotic lesions on extremities and pigmented lesion on upper back region. Results Laboratory Results: 10/18/18 04:55 10/18/18 04:55 10/18/18 10/18/18 04:55 04:55 WBC 17.8 H RBC 4.52 Hgb 14.2 Hct 41.4 MCV 92 MCH 31.5 MCHC 34.4 RDW 13.5 Plt Count 186 Seg Neutrophils % 86.4 H Lymphocytes % 7.4 L Monocytes % 6.0 Eosinophils % 0.0 Basophils % 0.2 Absolute Neutrophils 15.4 H Absolute Lymphocytes 1.3 Absolute Monocytes 1.1 Absolute Eosinophils 0.0 Absolute Basophils 0.0 Sodium 138.5 Potassium 4.4 Chloride 102 Carbon Dioxide 26 Anion Gap 11 BUN 34 H Creatinine 1.12 Est GFR ( Amer) > 60 Est GFR (Non-Af Amer) > 60 Glucose 156 H Calcium 9.7 Magnesium 2.3 10/15/18 10/15/18 10/16/18 23:24 23:24 05:48 Creatine Kinase 101 80 CK-MB (CK-2) 1.83 Troponin I 0.028 NT-Pro-B Natriuret Pep 10/16/18 10/16/18 10/16/18 05:48 11:25 11:25 Creatine Kinase 73 CK-MB (CK-2) 1.49 1.32 Troponin I 0.018 0.013 NT-Pro-B Natriuret Pep 2770 H 10/16/18 10/16/18 20:05 20:05 Creatine Kinase 225 H CK-MB (CK-2) 2.20 Troponin I 0.014 NT-Pro-B Natriuret Pep Impressions: Chest X-Ray 10/15/18 18:08 IMPRESSION: STABLE CARDIOMEGALY WITH DIFFUSE INTERSTITIAL PROMINENCE LIKELY DUE TO CHRONIC SCARRING WITH MILD INTERSTITIAL EDEMA. Assessment & Plan - Diagnosis (1) Chronic obstructive pulmonary disease with (acute) exacerbation Is this a current diagnosis for this admission?: Yes Plan: Continue current medication management. start on IV Vancomycin coverage pending blood culture final report on organism identification and sensitivity. (2) Chronic atrial fibrillation with rapid ventricular response Is this a current diagnosis for this admission?: Yes Plan: Rate control in showing some improvement with Digoxin loading dose. (3) HTN (hypertension) Qualifiers: Hypertension type: essential hypertension Qualified Code(s): I10 - Essential (primary) hypertension Is this a current diagnosis for this admission?: Yes (4) CAD (coronary artery disease) Qualifiers: Coronary Disease-Associated Artery/Lesion type: unspecified vessel or lesion type [place] vs. transplanted heart: [place] heart Associated angina: without angina Qualified Code(s): I25.10 - Atherosclerotic heart disease of [place] coronary artery without angina pectoris Is this a current diagnosis for this admission?: Yes (5) S/P CABG (coronary artery bypass graft) Is this a current diagnosis for this admission?: Yes (6) HLD (hyperlipidemia) Qualifiers: Hyperlipidemia type: pure hypercholesterolemia Qualified Code(s): E78.00 - Pure hypercholesterolemia, unspecified; E78.0 - Pure hypercholesterolemia Is this a current diagnosis for this admission?: Yes - Time Time Spent with patient: 25-34 minutes Medications reviewed and adjusted accordingly: Yes Anticipated discharge: Home with Homehealth Within: Other - Inpatient Certification Based on my medical assessment, after consideration of the patient's comorbidities, presenting symptoms, or acuity I expect that the services needed warrant INPATIENT care.: Yes I certify that my determination is in accordance with my understanding of Medicare's requirements for reasonable and necessary INPATIENT services [42 CFR 412.3e].: Yes Medical Necessity: Need Close Monitoring Due to Risk of Patient Decompensation, Need For Continuous Telemetry Monitoring, Need for Nebulizer Therapy and Monitoring of Response, Need for IV Antibiotics, Risk of Complication if Not Cared For in Hospital Post Hospital Care: D/C Rag Inspector Documentation - Plan Summary Plan Summary: See attending physician orders for above outlined care plan.
[2018-10-18] MEDS: ALBUTEROL SULFATE 0.083% NEB 2.5 MG/3 ML AMPUL NEB PRN (19:51)
[2018-10-18] MEDS: ATORVASTATIN CALCIUM 10 MG TABLET PO SCH (22:14)
[2018-10-19] MEDS: IPRATROPIUM BROMIDE 0.02% NEB 0.5 MG/2.5 ML AMPUL NEB SCH ×3 (00:24→16:11)
[2018-10-19 05:17] LABS: ABSOLUTE EOSINOPHILS # (AUTO) 0.1 10^3/uL (0.0-0.6); ABSOLUTE LYMPHOCYTES (AUTO) 2.6 10^3/uL (0.5-4.7); ABSOLUTE MONOCYTES (AUTO) 1.2 10^3/uL (0.1-1.4); ABSOLUTE NEUT (AUTO) 8.3 10^3/uL (1.7-8.2); BASOPHILS % (AUTO) 0.2 % (0-2); EOSINOPHILS % (AUTO) 0.6 % (0-6); HEMATOCRIT 40.6 % (37.9-51.0); HEMOGLOBIN 14.1 g/dL (13.5-17.0); MEAN CORPUSCULAR HEMOGLOBIN 31.5 pg (27.0-33.4); MEAN CORPUSCULAR HGB CONC 34.6 g/dL (32.0-36.0); MEAN CORPUSCULAR VOLUME 91 fl (80-97); PLATELET COUNT 199 10^3/uL (150-450); RED BLOOD COUNT 4.46 10^6/uL (4.35-5.55); RED CELL DISTRIBUTION WIDTH 13.6 % (11.5-14.0); SEGMENTED NEUTROPHILS % (AUTO) 68.2 % (42-78); TOTAL CELLS COUNTED % (AUTO) 100 %; WHITE BLOOD COUNT 12.2 10^3/uL (4.0-10.5)
[2018-10-19] MEDS: VANCOMYCIN HCL 750 MG in DEXTROSE 5%-WATER 250 ML IV SCH ×2 (05:29→17:52)
[2018-10-19 06:27] LABS: ANION GAP 8 (5-19); BLOOD UREA NITROGEN 37 mg/dL (7-20); CALCIUM 8.9 mg/dL (8.4-10.2); CARBON DIOXIDE 31 mmol/L (22-30); CHLORIDE 101 mmol/L (98-107); GLUCOSE 97 mg/dL (75-110); POTASSIUM 4.6 mmol/L (3.6-5.0); SODIUM 139.8 mmol/L (137-145)
[2018-10-19] MEDS: BUDESONIDE NEB 0.5 MG/2 ML AMPUL NEB SCH ×2 (08:34→19:52)
[2018-10-19] MEDS: DILTIAZEM HCL 120 MG CAP.SR.24H PO SCH ×2 (11:52→21:46)
[2018-10-19] MEDS: FAMOTIDINE 20 MG TABLET PO SCH ×2 (11:52→21:48)
[2018-10-19] MEDS: DIGOXIN 0.125 MG TABLET PO SCH (11:52)
[2018-10-19] MEDS: DOCUSATE SODIUM 100 MG CAPSULE PO SCH ×2 (11:52→17:52)
[2018-10-19] MEDS: LEVOFLOXACIN 500 MG TABLET PO SCH (11:52)
[2018-10-19] MEDS: OXYCODONE HCL IR 5 MG TABLET PO PRN ×2 (11:53→23:51)
[2018-10-19] MEDS: DABIGATRAN ETEXILATE 150 MG CAPSULE PO SCH ×2 (11:53→21:46)
[2018-10-19] MEDS: OXYCODONE-ACETAMINOPHEN 5-325 MG TABLET PO PRN ×2 (11:53→23:50)
--- NOTE | 2018-10-19 14:40 | PDOC PROGRESS REPORT ---
Subjective Progress Note for:: 10/19/18 Subjective:: Patient denied chest pain or difficulty with breathing. No nausea, vomiting or abdominal pain. No fever or chills. Reason For Visit: ACUTE EXACERBATION OF COPD Physical Exam Vital Signs: Temp Pulse Resp BP Pulse Ox 97.3 F 77 17 140/58 H 97 10/19/18 04:49 10/19/18 08:34 10/19/18 08:34 10/19/18 04:49 10/19/18 08:34 Intake & Output 10/18/18 10/19/18 10/20/18 06:59 06:59 06:59 Intake Total 1342 1467 237 Output Total 1360 1626 450 Balance -18 -159 -213 Weight 72.1 kg 72.3 kg Physical Exam: General appearance: PRESENT: no acute distress Head exam: PRESENT: atraumatic, normocephalic Eye exam: PRESENT: conjunctiva pink, EOMI, PERRLA. ABSENT: pallor, scleral icterus Ear exam: PRESENT: normal external ear exam Mouth exam: PRESENT: moist Respiratory exam: PRESENT: clear to auscultation nelson, decreased breath sounds Cardiovascular exam: PRESENT: irregular rhythm, +S1, +S2 GI/Abdominal exam: PRESENT: normal bowel sounds, soft. ABSENT: distended, guarding, mass, organomegaly, rebound, tenderness Extremities exam: ABSENT: pedal edema Musculoskeletal exam: PRESENT: deformity - due to multiple joints involvement with arthritis Neurological exam: PRESENT: alert, awake, oriented to person, oriented to place , oriented to time, oriented to situation, CN II-XII grossly intact. ABSENT: motor sensory deficit Psychiatric exam: PRESENT: appropriate affect, normal mood. ABSENT: homicidal ideation, suicidal ideation Skin exam: PRESENT: dry, warm, other - multiple actinic keratotic lesions on extremities and pigmented lesion on upper back region. Results Laboratory Results: 10/19/18 05:04 10/19/18 05:04 10/19/18 10/19/18 05:04 05:04 WBC 12.2 H RBC 4.46 Hgb 14.1 Hct 40.6 MCV 91 MCH 31.5 MCHC 34.6 RDW 13.6 Plt Count 199 Seg Neutrophils % 68.2 Lymphocytes % 21.0 Monocytes % 10.0 Eosinophils % 0.6 Basophils % 0.2 Absolute Neutrophils 8.3 H Absolute Lymphocytes 2.6 Absolute Monocytes 1.2 Absolute Eosinophils 0.1 Absolute Basophils 0.0 Sodium 139.8 Potassium 4.6 Chloride 101 Carbon Dioxide 31 H Anion Gap 8 BUN 37 H Creatinine 1.16 Est GFR ( Amer) > 60 Est GFR (Non-Af Amer) > 60 Glucose 97 Calcium 8.9 10/16/18 05:30 Blood Blood Culture - Final Staphylococcus Xylosus 10/15/18 10/15/18 10/16/18 23:24 23:24 05:48 Creatine Kinase 101 80 CK-MB (CK-2) 1.83 Troponin I 0.028 NT-Pro-B Natriuret Pep 10/16/18 10/16/18 10/16/18 05:48 11:25 11:25 Creatine Kinase 73 CK-MB (CK-2) 1.49 1.32 Troponin I 0.018 0.013 NT-Pro-B Natriuret Pep 2770 H 10/16/18 10/16/18 20:05 20:05 Creatine Kinase 225 H CK-MB (CK-2) 2.20 Troponin I 0.014 NT-Pro-B Natriuret Pep Impressions: Chest X-Ray 10/15/18 18:08 IMPRESSION: STABLE CARDIOMEGALY WITH DIFFUSE INTERSTITIAL PROMINENCE LIKELY DUE TO CHRONIC SCARRING WITH MILD INTERSTITIAL EDEMA. Assessment & Plan - Diagnosis (1) Chronic obstructive pulmonary disease with (acute) exacerbation Is this a current diagnosis for this admission?: Yes Plan: Restart on Anoro Ellipta therapy. Continue all other current medication management. (2) Chronic atrial fibrillation with rapid ventricular response Is this a current diagnosis for this admission?: Yes (3) HTN (hypertension) Qualifiers: Hypertension type: essential hypertension Qualified Code(s): I10 - Essential (primary) hypertension Is this a current diagnosis for this admission?: Yes (4) CAD (coronary artery disease) Qualifiers: Coronary Disease-Associated Artery/Lesion type: unspecified vessel or lesion type [place] vs. transplanted heart: [place] heart Associated angina: without angina Qualified Code(s): I25.10 - Atherosclerotic heart disease of [place] coronary artery without angina pectoris Is this a current diagnosis for this admission?: Yes (5) S/P CABG (coronary artery bypass graft) Is this a current diagnosis for this admission?: Yes (6) HLD (hyperlipidemia) Qualifiers: Hyperlipidemia type: pure hypercholesterolemia Qualified Code(s): E78.00 - Pure hypercholesterolemia, unspecified; E78.0 - Pure hypercholesterolemia Is this a current diagnosis for this admission?: Yes (7) Suspected infectious disease Is this a current diagnosis for this admission?: Yes Plan: His blood culture growth is probably due to contamination but associated leukocytosis and improvement with administration of IV Vancomycin raised the concern for real ongoing infection. I will continue him on oral Levofloxacin coverage. If leukocytosis continue on downward trend I will consider discharge home tomorrow. - Time Time Spent with patient: 25-34 minutes Medications reviewed and adjusted accordingly: Yes Anticipated discharge: Home Within: within 24 hours - Inpatient Certification Based on my medical assessment, after consideration of the patient's comorbidities, presenting symptoms, or acuity I expect that the services needed warrant INPATIENT care.: Yes I certify that my determination is in accordance with my understanding of Medicare's requirements for reasonable and necessary INPATIENT services [42 CFR 412.3e].: Yes Medical Necessity: Need Close Monitoring Due to Risk of Patient Decompensation, Need For Continuous Telemetry Monitoring, Need for Nebulizer Therapy and Monitoring of Response, Need for IV Antibiotics, Risk of Complication if Not Cared For in Hospital Post Hospital Care: D/C Press Manager Documentation - Plan Summary Plan Summary: Continue on medical management as outlined by above care plan.
[2018-10-19] MEDS: ALBUTEROL SULFATE 0.083% NEB 2.5 MG/3 ML AMPUL NEB PRN (19:52)
[2018-10-19] MEDS: ATORVASTATIN CALCIUM 10 MG TABLET PO SCH (21:46)
[2018-10-20] MEDS: IPRATROPIUM BROMIDE 0.02% NEB 0.5 MG/2.5 ML AMPUL NEB SCH ×3 (00:09→15:54)
[2018-10-20] MEDS: VANCOMYCIN HCL 750 MG in DEXTROSE 5%-WATER 250 ML IV SCH (06:01)
[2018-10-20 06:47] LABS: VANCOMYCIN,TROUGH 10.4 ug/mL (5.0-20.0)
[2018-10-20] MEDS: BUDESONIDE NEB 0.5 MG/2 ML AMPUL NEB SCH (08:00)
[2018-10-20] MEDS: DOCUSATE SODIUM 100 MG CAPSULE PO SCH (09:48)
[2018-10-20] MEDS: DILTIAZEM HCL 120 MG CAP.SR.24H PO SCH (09:49)
[2018-10-20] MEDS: LEVOFLOXACIN 500 MG TABLET PO SCH (09:50)
[2018-10-20] MEDS: OXYCODONE-ACETAMINOPHEN 5-325 MG TABLET PO PRN (09:50)
[2018-10-20] MEDS: DIGOXIN 0.125 MG TABLET PO SCH (09:51)
[2018-10-20] MEDS: FAMOTIDINE 20 MG TABLET PO SCH (09:53)
[2018-10-20] MEDS: DABIGATRAN ETEXILATE 150 MG CAPSULE PO SCH (09:56)
[2018-10-20] MEDS ORDERED: (PENDING PHARMACY ID) (Umeclidinium Brm/Vilanterol Tr [Anoro Ellipta 62.5-25 Mcg Inh] 1 EA IH SCH (10:00)
[2018-10-20 14:50] LABS: HEMATOCRIT 44.6 % (37.9-51.0); HEMOGLOBIN 15.3 g/dL (13.5-17.0); MEAN CORPUSCULAR HEMOGLOBIN 31.4 pg (27.0-33.4); MEAN CORPUSCULAR HGB CONC 34.2 g/dL (32.0-36.0); MEAN CORPUSCULAR VOLUME 92 fl (80-97); PLATELET COUNT 214 10^3/uL (150-450); RED BLOOD COUNT 4.85 10^6/uL (4.35-5.55); RED CELL DISTRIBUTION WIDTH 13.7 % (11.5-14.0); WHITE BLOOD COUNT 11.5 10^3/uL (4.0-10.5)
[2018-10-20 15:14] LABS: ABSOLUTE LYMPHOCYTES# (MANUAL) 2.1 10^3/uL (0.5-4.7); ABSOLUTE MONOCYTES # (MANUAL) 0.7 10^3/uL (0.1-1.4); ABSOLUTE NEUTROPHILS# (MANUAL) 8.4 10^3/uL (1.7-8.2); BASOPHILS % (MANUAL) 0 % (0-2); EOSINOPHILS % (MANUAL) 3 % (0-6); LYMPHOCYTES % (MANUAL) 11 % (13-45); MONOCYTES % (MANUAL) 6 % (3-13); SEGMENTED NEUTROPHILS % (MAN) 73 % (42-78); TOTAL CELLS COUNTED 100
[2018-10-20 15:16] LABS: OVALOCYTES 1+; PLATELET COMMENT ADEQUATE; POIKILOCYTOSIS 1+
--- NOTE | 2018-10-20 15:20 | PDOC DISCHARGE SUMMARY ---
General - Admit/Disc Date/PCP Admission Date/Primary Care Provider: 10/15/18 22:23 DEYSI DIANE Discharge Date: 10/20/18 - Discharge Diagnosis (1) Chronic obstructive pulmonary disease with (acute) exacerbation Is this a current diagnosis for this admission?: Yes (2) Chronic atrial fibrillation with rapid ventricular response Is this a current diagnosis for this admission?: Yes (3) HTN (hypertension) Is this a current diagnosis for this admission?: Yes (4) CAD (coronary artery disease) Is this a current diagnosis for this admission?: Yes (5) S/P CABG (coronary artery bypass graft) Is this a current diagnosis for this admission?: Yes (6) HLD (hyperlipidemia) Is this a current diagnosis for this admission?: Yes (7) Suspected infectious disease Is this a current diagnosis for this admission?: Yes - Additional Information Resuscitation Status: Full Code Discharge Diet: Cardiac Discharge Activity: Activity As Tolerated, Slowly Increase Activity Prescriptions: Digoxin [Lanoxin 0.25 mg Tablet] 0.25 mg PO DAILY #30 tablet Docusate Sodium [Colace 100 mg Capsule] 100 mg PO BID #60 capsule Ipratropium/Albuterol Sulfate [Combivent Inhaler] 2 puff IH Q4HP PRN 30 Days #2 aer.w.adap PRN Reason: For Wheezing Levofloxacin [Levaquin 500 mg Tablet] 500 mg PO DAILY #7 tablet Home Medications: Oxycodone HCl/Acetaminophen [Percocet 7.5-325 mg Tablet] 1 tab PO Q6HP PRN 11/12 Dabigatran Etexilate Mesylate [Pradaxa 150 mg Capsule] 150 mg PO Q12 #60 capsule 11/18/17 Diltiazem HCl [Cardizem Cd 120 mg Capsule] 120 mg PO Q12 #60 cap.sr.24h Pravastatin Sodium [Pravachol] 40 mg PO DAILY 10/16/18 Umeclidinium Brm/Vilanterol Tr [Anoro Ellipta 62.5-25 Mcg INH] 1 each IH DAILY 10/16/18 Digoxin [Lanoxin 0.25 mg Tablet] 0.25 mg PO DAILY #30 tablet 10/20/18 Docusate Sodium [Colace 100 mg Capsule] 100 mg PO BID #60 capsule 10/20/18 Ipratropium/Albuterol Sulfate [Combivent Inhaler] 2 puff IH Q4HP PRN 30 Days #2 aer.w.adap 10/20/18 Levofloxacin [Levaquin 500 mg Tablet] 500 mg PO DAILY #7 tablet 10/20/18 History of Present Illness History of Present Illness: RUKHSANA GRAHAM is a 68 year old male who presents to the emergency room with a one-week history of chest pain. He describes the pain as a sharp stabbing pain in the slightly depressed area of his sternotomy scar on the anterior aspect of his chest. He states that the pain sometimes moves to the right or left of this area but it is always there when you push on the area. Pain has been intermittent in timing and of moderate to severe intensity. The pain lasts as long as a few minutes and a short as a few seconds. Over the last few days the pain has begun to last for a little longer period of time and he has experienced increased dyspnea and wheezing especially with exertion over that timeframe. He reports an associated minimally productive cough for the last day or 2 and some palpitations beginning on the evening prior to his arrival in the emergency room. In the emergency room he was found to have atrial fibrillation with a rapid ventricular response which responded to IV push dosing of diltiazem. His initial cardiac enzymes were within normal limits but his BNP pro was elevated at 2200. Patient was admitted for further evaluation of his chest pain as well as treatment of his COPD exacerbation. Hospital Course Hospital Course: Patient was managed with IV Solu Medrol and bronchodilators therapy. His was maintained on Levofloxacin coverage due to concern for possible infectious contribution in view of his associated productive coughing. His blood culture did grew staphylococcus Xylosus, possible contaminant but in view of associated leukocytosis and response to IV Vancomycin therapy there was concern that it may be real infection. Sensitivity report suggested that bacteria is sensitive to Levofloxacin and Vancomycin. He had total of 3 doses of IV Vancomycin. he will be discharged home today with 7 days on Levofloxacin coverage. he will follow up in the office as instructed upon discharge. Physical Exam Vital Signs: Temp Pulse Resp BP Pulse Ox 98.6 F 61 18 112/53 L 97 10/20/18 12:00 10/20/18 12:00 10/20/18 12:00 10/20/18 12:10/20/18 12:00 Intake & Output 10/19/18 10/20/18 10/21/18 06:59 06:59 06:59 Intake Total 1717 1385 730 Output Total 5979 1935 700 Balance 91 -550 30 Weight 72.3 kg 73.2 kg Physical Exam: General appearance: PRESENT: no acute distress Head exam: PRESENT: atraumatic, normocephalic Eye exam: PRESENT: conjunctiva pink, EOMI, PERRLA. ABSENT: pallor, scleral icterus Ear exam: PRESENT: normal external ear exam Mouth exam: PRESENT: moist Respiratory exam: PRESENT: clear to auscultation nelson, decreased breath sounds Cardiovascular exam: PRESENT: irregular rhythm, +S1, +S2 GI/Abdominal exam: PRESENT: normal bowel sounds, soft. ABSENT: distended, guarding, mass, organomegaly, rebound, tenderness Extremities exam: ABSENT: pedal edema Musculoskeletal exam: PRESENT: deformity - due to multiple joints involvement with arthritis Neurological exam: PRESENT: alert, awake, oriented to person, oriented to place , oriented to time, oriented to situation, CN II-XII grossly intact. ABSENT: motor sensory deficit Psychiatric exam: PRESENT: appropriate affect, normal mood. ABSENT: homicidal ideation, suicidal ideation Skin exam: PRESENT: dry, warm, other - multiple actinic keratotic lesions on extremities and pigmented lesion on upper back region. Results Laboratory Results: 10/20/18 14:15 10/19/18 05:04 10/20/18 14:15 WBC 11.5 H RBC 4.85 Hgb 15.3 Hct 44.6 MCV 92 MCH 31.4 MCHC 34.2 RDW 13.7 Plt Count 214 Seg Neutrophils % Not Reportable Lymphocytes % Not Reportable Monocytes % Not Reportable Eosinophils % Not Reportable Basophils % Not Reportable Absolute Neutrophils Not Reportable Absolute Lymphocytes Not Reportable Absolute Monocytes Not Reportable Absolute Eosinophils Not Reportable Absolute Basophils Not Reportable 10/16/18 05:30 Blood Blood Culture - Final Staphylococcus Xylosus 10/15/18 10/15/18 10/16/18 23:24 23:24 05:48 Creatine Kinase 101 80 CK-MB (CK-2) 1.83 Troponin I 0.028 NT-Pro-B Natriuret Pep 10/16/18 10/16/18 10/16/18 05:48 11:25 11:25 Creatine Kinase 73 CK-MB (CK-2) 1.49 1.32 Troponin I 0.018 0.013 NT-Pro-B Natriuret Pep 2770 H 10/16/18 10/16/18 20:05 20:05 Creatine Kinase 225 H CK-MB (CK-2) 2.20 Troponin I 0.014 NT-Pro-B Natriuret Pep Impressions: Chest X-Ray 10/15/18 18:08 IMPRESSION: STABLE CARDIOMEGALY WITH DIFFUSE INTERSTITIAL PROMINENCE LIKELY DUE TO CHRONIC SCARRING WITH MILD INTERSTITIAL EDEMA. Qualifiers - * PATIENT BEING DISCHARGED WITH ANY OF THE FOLLOWING DIAGNOSIS: No Plan Discharge Plan: Discharge home today. Follow up in the office as instructed upon discharge. We will check his digoxin level at follow up office visit.
[2018-10-20 16:45] VITALS: BP 101/49
[2018-10-21] MEDS ORDERED: DIGOXIN 0.25 MG TABLET PO SCH (10:00)
== END 2018-10-20 16:50 | disposition home or self-care (01) | DRG 191 ==
LOC: ER 17:18 → EH 22:23 → 3W 10-16 00:37 → 4N 10-19 23:40
PROVIDERS: ADMIT Emergency Medicine; ATTEND Internal Medicine Geriatric Medicine
PROC: 3E0F73Z Introduction of Anti-inflammatory into Respiratory Tract, Via Natural or Artificial Opening (ICD-10-PCS; 2018-10-16)
PROC: 3E02340 Introduction of Influenza Vaccine into Muscle, Percutaneous Approach (ICD-10-PCS; principal; 2018-10-20)
DX: J44.1 Chronic obstructive pulmonary disease with (acute) exacerbation (principal); I50.22 Chronic systolic (congestive) heart failure; B95.7 Other staphylococcus as the cause of diseases classified elsewhere; H53.9 Unspecified visual disturbance; I48.2 Chronic atrial fibrillation; E78.5 Hyperlipidemia, unspecified; M13.89 Other specified arthritis, multiple sites; F17.210 Nicotine dependence, cigarettes, uncomplicated; I11.0 Hypertensive heart disease with heart failure; Z23 Encounter for immunization; I73.9 Peripheral vascular disease, unspecified; Z95.1 Presence of aortocoronary bypass graft; I25.2 Old myocardial infarction; Z82.49 Family history of ischemic heart disease and other diseases of the circulatory system; Z79.899 Other long term (current) drug therapy; Z88.0 Allergy status to penicillin; Z88.6 Allergy status to analgesic agent; Z88.8 Allergy status to other drugs, medicaments and biological substances; Z95.5 Presence of coronary angioplasty implant and graft
CPT/HCPCS: 36415; 71045; 80048; 80053; 80061; 80162; 80202; 82550; 82553; 82803; 83735; 83880; 84439; 84443; 84481; 84484; 85025; 85610; 85730; 87040; 87077; 87186; 90471; 90686; 93005; 93010; 94640; 96361; 96365; 96375; 99285; G0008; J0456; J1160; J1940; J2405; J2920; J2930; J3370; J3490; J7030; J7060; J7620

== ENCOUNTER 2018-11-16 21:19 | Inpatient (IN) | payer MEDICARE, MEDICAID ==
[2018-11-16] MEDS ORDERED: DILTIAZEM HCL/D5W 125 MG/125 ML RTUINJ IV PRN (21:28)
[2018-11-16] MEDS ORDERED: DILTIAZEM HCL INJ 25 MG/5 ML VIAL IV ONE (21:28)
[2018-11-16] MEDS ORDERED: RINGERS SOLUTION,LACTATED 1,000 ML IV ONE (21:28)
[2018-11-16] MEDS ORDERED: PROPOFOL 1,000 MG/100 ML INFUS..BTL IV PRN (21:29)
[2018-11-16] MEDS ORDERED: DILTIAZEM HCL/D5W 125 MG/125 ML RTUINJ IV ONE (21:31)
[2018-11-16] MEDS ORDERED: DILTIAZEM HCL INJ 25 MG/5 ML VIAL ONE (21:31)
[2018-11-16] MEDS ORDERED: METHYLPREDNISOLONE INJ 125 MG/2 ML SDV IV ONE ×2 (21:35→22:30)
--- NOTE | 2018-11-16 21:35 | ER Document Report ---
ED General - General Chief Complaint: Respiratory Distress Stated Complaint: RESPIRATORY DISTRESS Time Seen by Provider: 11/16/18 21:26 Cannot obtain history due to: Intubated, Unstable vital signs Notes: Patient is a 68-year-old male with a prior past medical history of COPD who presents by EMS intubated, sedated, after being found sitting on the side of the road in respiratory distress with tachycardia. Apparently he had been in a vehicle with a friend, but they stopped the side of the road because the patient was having increased shortness of breath. EMS was called, the friend left without providing additional history. Patient himself is unable to provide history to EMS other than apparently that his heart rate has been going fast and that he has been feeling short of breath for several days. TRAVEL OUTSIDE OF THE [place] IN LAST 30 DAYS: No - Related Data Allergies/Adverse Reactions: Penicillins Allergy (Severe, Verified 07/15/16 10:34) turned blue as hydrocodone bitartrate [From Vicodin] Allergy (Intermediate, Verified 07/15/16 10:34) N & V acetaminophen [From Tylenol] Allergy (Verified 11/12/17 20:20) aspirin Allergy (Verified 11/12/17 20:20) Past Medical History - General Information source: Emergency Med Personnel Cannot obtain history due to: Intubated, Unstable vital signs - Social History Smoking Status: Current Every Day Smoker Family History: CAD - Past Medical History Cardiac Medical History: Reports: Hx Atrial Fibrillation, Hx Congestive Heart Failure, Hx Coronary Artery Disease, Hx Heart Attack - 2010 Denies: Hx DVT, Hx Pulmonary Embolism Pulmonary Medical History: Reports: Hx COPD, Hx Pneumonia Denies: Hx Asthma, Hx Sleep Apnea Neurological Medical History: Reports: Hx Cerebrovascular Accident - 2009. Denies: Hx Seizures Endocrine Medical History: Denies: Hx Diabetes Mellitus Type 1, Hx Diabetes Mellitus Type 2 Renal/ Medical History: Denies: Hx Peritoneal Dialysis Malignancy Medical History: Reports Hx Skin Cancer GI Medical History: Denies: Hx Cirrhosis, Hx Hepatitis Musculoskeletal Medical History: Reports Hx Arthritis, Denies Hx Gout Skin Medical History: Denies Hx Eczema, Denies Hx Psoriasis Psychiatric Medical History: Denies: Hx Depression Infectious Medical History: Denies: Hx Hepatitis Past Surgical History: Reports: Hx Cardiac Catheterization - stent, Hx Coronary Artery Bypass Graft - 11/2011, Hx Coronary Stent - Immunizations Immunizations up to date: Yes Hx Diphtheria, Pertussis, Tetanus Vaccination: No Hx Pneumococcal Vaccination: 11/04/11 Review of Systems - Review of Systems -: Yes ROS unobtainable due to patient's medical condition Physical Exam - Vital signs Vitals: Pulse Ox 94 11/16/18 21:21 Interpretation: Tachycardic Notes: PHYSICAL EXAMINATION: GENERAL: Extremely ill in appearance, intubated, sedated HEAD: Atraumatic, normocephalic. EYES: Cataracts present bilaterally. Pupils 3 mm, nonresponsive to light ENT: nares patent, Dry mucous membranes. NECK: supple without lymphadenopathy LUNGS: Rales present in all lung parham more prominent at the bases bilaterally. B-lines present on pleural ultrasound bilaterally. HEART: Irregular regular tachycardia without murmurs ABDOMEN: Soft,normoactive bowel sounds. No masses appreciated. EXTREMITIES: no pitting or edema. No cyanosis. NEUROLOGICAL: Unable to assess secondary the patient received rocuronium prior to arrival. GCS 3 T PSYCH: Unable to assess, GCS 3 T. SKIN: Warm, Dry, normal turgor, no rashes or lesions noted. Course - Re-evaluation Re-evalutation: 11/16/18 21:33 Patient presents intubated after being in respiratory distress with associated hypoxia, rales, wheezing. Apparently the patient was thought to be in supra ventricular tachycardia in the field of the review of strips from EMS reveals the patient was indeed in A. fib with rapid ventricular response. 3 doses of adenosine were tried in the field without relief and the patient was subsequently cardioverted with 100 J to a sinus rhythm. At time of arrival however the patient is again in A. fib with rapid ventricular response on monitor. Bedside pleural ultrasound does reveal B-lines in both lung parham although the patient has no overt signs of volume overload otherwise. Does have rales at the bases in particular bilaterally. His initial vitals show a saturation of 95% on 60% FiO2 on the vent. Patient is tachycardic into the 130s-140s, A. fib with RVR. Temperature Rojas catheter will be placed. Patient has been started on propofol for his ongoing sedation. Diltiazem bolus and infusion will be initiated. IV fluids at maintenance. Chest x-ray is pending. Bedside echocardiogram without regional wall motion abnormality or any evidence of pericardial effusion. Patient does not have a distended IVC on bedside IVC and ultrasound. Patient was just discharged in the hospital approximately 1 month ago for a COPD exacerbation with an associated pneumonia based on discharge review. The patient is critically ill, require frequent and regular reassessments. 11/16/18 21:40 Chest x-ray does confirm initial bedside pleural findings of what appears to be scattered pulmonary edema versus ARDS picture. Patient's rate is currently much improved currently 100, pressure 118 on 82. I have increased the PEEP to 8 given what appears to be pulmonary edema. We are working obtaining a core temperature. Flu swab also pending as this could also result in a similar pattern on chest x-ray. Apparently in 2014 the patient did have a presentation in which he was in A. fib with rapid ventricular response with associated pulmonary edema. However at this point on exam the patient otherwise appears euvolemic, will start with a low-dose of furosemide 20 mg 11/16/18 21:47 Patient has had mild decrease in blood pressure at 95 and 73. We are decreasing propofol infusion although map does remain in acceptable range. Will continue to reassess at regular intervals. Patient remains critically ill. 11/16/18 22:27 Patient's digoxin level is undetectable, clearly noncompliant with home medication. The patient's diltiazem has been able to be discontinued as he has converted to normal sinus rhythm. Blood pressure stable at 96 on 67 currently with propofol at 20. Patient was paralyzed with rocuronium in the field but has not had any change in his neuro status here without any purposeful movement despite decreasing down on propofol. Will proceed with CT of the head given his continued depressed mental status despite minimal sedation. Labs reveal jatin vated BNP, normal troponin, mild acute kidney injury that appears chronic in nature. Arterial blood gas does show respiratory acidosis. Will redraw gas within the next 1 hour. 11/16/18 23:21 Patient now having some spontaneous breathing and gagging on tube. BP increasing into 150s systolic. Propofol increased. CT head is clear. 11/16/18 23:25 Patient's repeat ABG shows actual worsening of his PCO2 to 74.3. Has had a volume has been increased to 500 respiratory rate increased to 18. Other set tings will remain the same. I discussed this case with Dr. Singh. I have also notified him of the worsening of the ABG. I have notified of the vent setting changes. The patient has been accepted to ICU. - Vital Signs Vital signs: Temp Pulse Resp BP Pulse Ox 95.8 F L 18 83/62 L 96 11/16/18 23:41 11/17/18 00:45 11/17/18 00:45 11/17/18 00:50 - Laboratory Result Diagrams: 11/16/18 21:30 11/16/18 21:30 Laboratory results interpreted by me: 11/16/18 11/16/18 11/16/18 21:30 21:30 21:30 WBC 13.0 H Absolute Neutrophils 8.6 H Carbonic Acid ABG pH ABG pCO2 ABG pO2 ABG HCO3 ABG Total CO2 ABG O2 Saturation BUN 22 H Creatinine 1.41 H Est GFR (Non-Af Amer) 50 L Glucose 208 H Phosphorus ALT 20 L NT-Pro-B Natriuret Pep 2560 H TSH Urine Protein Digoxin 11/16/18 11/16/18 11/16/18 21:30 21:30 21:30 WBC Absolute Neutrophils Carbonic Acid ABG pH ABG pCO2 ABG pO2 ABG HCO3 ABG Total CO2 ABG O2 Saturation BUN Creatinine Est GFR (Non-Af Amer) Glucose Phosphorus 6.8 H ALT NT-Pro-B Natriuret Pep TSH 4.93 H Urine Protein Digoxin < 0.40 L 11/16/18 11/16/18 11/16/18 21:51 22:42 23:05 WBC Absolute Neutrophils Carbonic Acid 2.05 H 2.24 H ABG pH 7.17 L* 7.18 L* ABG pCO2 68.2 H 74.3 H* ABG pO2 76.9 L ABG HCO3 24.2 H 27.0 H ABG Total CO2 29.3 H ABG O2 Saturation 91.2 L 93.9 L BUN Creatinine Est GFR (Non-Af Amer) Glucose Phosphorus ALT NT-Pro-B Natriuret Pep TSH Urine Protein 100 H Digoxin - Diagnostic Test Radiology reviewed: Image reviewed, Reports reviewed Radiology results interpreted by me: 11/16/18 22:30 Chest x-ray: Increased prominent of interstitial edema bilaterally. Increased cardiomegaly relative to previous. ET tube position slightly high - EKG Interpretation by Me Additional EKG results interpreted by me: 11/16/18 21:35 A. fib, RVR, rate 130s. No ST elevations, subtle depressions in the lateral leads. Critical Care Note - Critical Care Note Total time excluding time spent on procedures (mins): 80 Comments: Critical care time spent obtaining history from patient or surrogate, discussions with consultants, development of treatment plan with patient or surrogate, evaluation of patient's response to treatment, examination of patient, ordering and performing treatments and interventions, ordering and review of laboratory studies, re-evaluation of patient's condition, ordering and review of radiographic studies and review of old charts Discharge - Discharge Clinical Impression: Atrial fibrillation with RVR, Respiratory acidosis Congestive heart failure (CHF) Qualifiers: Heart failure type: unspecified Heart failure chronicity: unspecified Qualified Code(s): I50.9 - Heart failure, unspecified Respiratory failure Qualifiers: Chronicity: acute Respiratory failure complication: hypoxia and hypercapnia Qualified Code(s): J96.01 - Acute respiratory failure with hypoxia; J96.02 - Acute respiratory failure with hypercapnia Pulmonary edema Qualifiers: Chronicity: acute Qualified Code(s): J81.0 - Acute pulmonary edema Condition: Critical Disposition: ADMITTED INPATIENT Admitting Provider: Samantha
[2018-11-16] MEDS ORDERED: FUROSEMIDE INJ/PF 20 MG/2 ML SDV IV ONE (21:47)
[2018-11-16 21:50] LABS: ABSOLUTE BASOPHILS # (AUTO) 0.1 10^3/uL (0.0-0.2); ABSOLUTE EOSINOPHILS # (AUTO) 0.1 10^3/uL (0.0-0.6); ABSOLUTE LYMPHOCYTES (AUTO) 3.4 10^3/uL (0.5-4.7); ABSOLUTE MONOCYTES (AUTO) 0.7 10^3/uL (0.1-1.4); ABSOLUTE NEUT (AUTO) 8.6 10^3/uL (1.7-8.2); BASOPHILS % (AUTO) 0.9 % (0-2); EOSINOPHILS % (AUTO) 1.2 % (0-6); HEMATOCRIT 45.9 % (37.9-51.0); HEMOGLOBIN 15.5 g/dL (13.5-17.0); LYMPHOCYTES % (AUTO) 25.9 % (13-45); MEAN CORPUSCULAR HEMOGLOBIN 31.5 pg (27.0-33.4); MEAN CORPUSCULAR HGB CONC 33.8 g/dL (32.0-36.0); MEAN CORPUSCULAR VOLUME 93 fl (80-97); MONOCYTES % (AUTO) 5.8 % (3-13); PLATELET COUNT 280 10^3/uL (150-450); RED BLOOD COUNT 4.93 10^6/uL (4.35-5.55); RED CELL DISTRIBUTION WIDTH 13.7 % (11.5-14.0); SEGMENTED NEUTROPHILS % (AUTO) 66.2 % (42-78); TOTAL CELLS COUNTED % (AUTO) 100 %
[2018-11-16 21:57] LABS: ARTERIAL BLOOD BASE EXCESS -5.9 mmol/L; ARTERIAL BLOOD H2CO3 2.05 mmol/L (1.05-1.35); ARTERIAL BLOOD HCO3 24.2 mmol/L (20-24); ARTERIAL BLOOD O2 SATURATION 91.2 % (94-98); ARTERIAL BLOOD PCO2 68.2 mmHg (35-45); ARTERIAL BLOOD PO2 76.9 mmHg (80-100); ARTERIAL BLOOD TOTAL CO2 26.2 mmol/L (23-27)
[2018-11-16 21:59] LABS: ARTERIAL BLOOD FIO2 60%
[2018-11-16 22:00] LABS: ARTERIAL BLOOD PH 7.17 (7.35-7.45)
[2018-11-16] MEDS ORDERED: LEVOFLOXACIN 750 MG/D5W RTU 750 MG/150 ML RTUPB IV ONE (22:00)
[2018-11-16 22:04] LABS: ALANINE AMINOTRANSFERASE 20 U/L (21-72); ALBUMIN 4.6 g/dL (3.5-5.0); ALKALINE PHOSPHATASE 64 U/L (38-126); ANION GAP 9 (5-19); ASPARTATE AMINO TRANSFERASE 22 U/L (17-59); BILIRUBIN,DIRECT 0.3 mg/dL (0.0-0.4); BILIRUBIN,TOTAL 0.6 mg/dL (0.2-1.3); BLOOD UREA NITROGEN 22 mg/dL (7-20); CALCIUM 8.8 mg/dL (8.4-10.2); CARBON DIOXIDE 27 mmol/L (22-30); CHLORIDE 107 mmol/L (98-107); GLUCOSE 208 mg/dL (75-110); POTASSIUM 4.6 mmol/L (3.6-5.0); SODIUM 143.1 mmol/L (137-145)
[2018-11-16 22:15] LABS: TROPONIN I 0.016 ng/mL
[2018-11-16 22:23] LABS: A TYPE INFLUENZA AG NEGATIVE (NEGATIVE); B INFLUENZA AG NEGATIVE (NEGATIVE)
[2018-11-16 23:19] LABS: ARTERIAL BLOOD BASE EXCESS -3.7 mmol/L; ARTERIAL BLOOD H2CO3 2.24 mmol/L (1.05-1.35); ARTERIAL BLOOD O2 SATURATION 93.9 % (94-98); ARTERIAL BLOOD PO2 87.1 mmHg (80-100); ARTERIAL BLOOD TOTAL CO2 29.3 mmol/L (23-27)
--- NOTE | 2018-11-16 23:19 | RADIOLOGY REPORT (SQ) ---
EXAM DESCRIPTION: CT HEAD WITHOUT IV CONTRAST COMPLETED DATE/TME: 11/16/2018 22:30 CLINICAL HISTORY: 68 years, Male, ams COMPARISON: 10/01/2013 CT brain TECHNIQUE: 277 Images stored on PACS. All CT scanners at this facility use dose modulation, iterative reconstruction, and/or weight based dosing when appropriate to reduce radiation dose to as low as reasonably achievable (ALARA). [facility]: Dose Right [facility]: CareDose [facility]: Dose Right [facility]: Teradose 4D [facility]: [employer] LIMITATIONS: None. FINDINGS: The globes are intact. Endotracheal tube and enteric tubes are partially seen. Mucosal thickening and polyps of the maxillary sinuses and ethmoid air cells. No displaced or depressed skull fracture. No intra or extra-axial hemorrhage. CT is limited for evaluation of acute infarct. No CT evidence for large or territorial acute infarct. Diffuse atrophy. Hypodensities in the periventricular and subcortical white matter consistent with sequelae of small vessel ischemic change. No mass or midline shift IMPRESSION: Atrophy with small vessel ischemic change. Negative for acute intracranial abnormality TECHNICAL DOCUMENTATION: Quality ID # [id number]: Final reports with documentation of one or more dose reduction techniques (e.g., Automated exposure control, adjustment of the mA and/or kV according to patient size, use of iterative reconstruction technique) copyright 2011 [employer]- All Rights Reserved
[2018-11-16 23:22] LABS: ARTERIAL BLOOD FIO2 70%
[2018-11-16 23:24] LABS: ARTERIAL BLOOD PCO2 74.3 mmHg (35-45); ARTERIAL BLOOD PH 7.18 (7.35-7.45)
--- NOTE | 2018-11-16 23:43 | RADIOLOGY REPORT (SQ) ---
EXAM DESCRIPTION: XR CHEST 1 VIEW COMPLETED DATE/TME: 11/16/2018 21:27 CLINICAL HISTORY: 68 years, Male, intubation, resp distress COMPARISON: 10/15/2018 chest NUMBER OF VIEWS: 1 TECHNIQUE: Portable chest LIMITATIONS: None. FINDINGS: Cardiomegaly. Median sternotomy wires. Endotracheal and enteric tubes are in place. Atheromatous change thoracic aorta. Interstitial and airspace opacities bilaterally consistent with pulmonary edema. Small left pleural effusion. No pneumothorax. Osteopenia IMPRESSION: Cardiomegaly with pulmonary edema pattern, as above. Endotracheal tube and enteric tube in place copyright 2010 [employer]- All Rights Reserved
[2018-11-16] MEDS ORDERED: PHARMACY COMMUNICATION ORDER MC NR (23:45)
[2018-11-16] MEDS ORDERED: AZTREONAM INJ 1 GM VIAL IV SCH (23:45)
[2018-11-16] MEDS ORDERED: VANCOMYCIN HCL 0 MG in DEXTROSE 5%-WATER 250 ML IV NR (23:45)
[2018-11-16 23:51] LABS: INTERNATIONAL RATION (INR) 1.07; PROTHROMBIN TIME 14.4 SEC (11.4-15.4)
[2018-11-16 23:52] LABS: PARTIAL THROMBOPLASTIN TIME 30.6 SEC (23.5-35.8)
[2018-11-17 00:17] LABS: LIPASE 97.8 U/L (23-300); PHOSPHORUS 6.8 mg/dL (2.5-4.5)
[2018-11-17] MEDS: RINGERS SOLUTION,LACTATED 1,000 ML IV PRN ×3 (00:22→14:32)
[2018-11-17 00:48] LABS: THYROID STIMULATING HORMONE 4.93 uIU/mL (0.47-4.68)
[2018-11-17 00:49] LABS: CREATINE KINASE MB 1.69 ng/mL (<4.55)
[2018-11-17 00:55] LABS: TROPONIN I 0.055 ng/mL
[2018-11-17] MEDS ORDERED: AZTREONAM 1 GM in DEXTROSE 5%-WATER 50 ML IV ONE (01:00)
[2018-11-17 01:18] LABS: APPEARANCE,URINE SLIGHTLY-CLOUDY; BILIRUBIN,URINE NEGATIVE (NEGATIVE); CALCIUM OXALATE CRYSTALS,URINE FEW /HPF; COLOR,URINE YELLOW; GLUCOSE, URINE NEGATIVE (NEGATIVE); KETONES,URINE NEGATIVE (NEGATIVE); LEUKOCYTE ESTERASE,URINE NEGATIVE (NEGATIVE); NITRITE,URINE NEGATIVE (NEGATIVE); PROTEIN,URINE 100 mg/dL (NEGATIVE); URINE SPECIFIC GRAVITY 1.016; UROBILINOGEN,URINE NEGATIVE mg/dL (<2.0)
--- NOTE | 2018-11-17 01:30 | RADIOLOGY REPORT (SQ) ---
EXAM DESCRIPTION: XR ABDOMEN 1 VIEW (KUB) COMPLETED DATE/TME: 11/16/2018 23:43 CLINICAL HISTORY: 68 years, Male, Check Placement of NG Tube COMPARISON: None. NUMBER OF VIEWS: 1 TECHNIQUE: AP abdomen LIMITATIONS: None. FINDINGS: Enteric tube with the tip in the left upper quadrant, likely in the proximal stomach. No free air. Nonspecific bowel gas pattern. Interstitial and airspace opacities over the lung bases. Osteopenia. IMPRESSION: Tip of the enteric tube likely in the proximal stomach. copyright 2010 [employer]- All Rights Reserved
[2018-11-17 01:32] LABS: ARTERIAL BLOOD BASE EXCESS -1.7 mmol/L; ARTERIAL BLOOD HCO3 27.1 mmol/L (20-24); ARTERIAL BLOOD O2 SATURATION 98.8 % (94-98); ARTERIAL BLOOD PH 7.25 (7.35-7.45); ARTERIAL BLOOD PO2 168.6 mmHg (80-100); ARTERIAL BLOOD TOTAL CO2 29.1 mmol/L (23-27)
[2018-11-17 01:33] LABS: ARTERIAL BLOOD FIO2 60%
[2018-11-17 01:33] LABS: URINE AMPHETAMINES SCREEN NEGATIVE; URINE BARBITURATES SCREEN NEGATIVE; URINE BENZODIAZEPINES SCREEN UNCONFIRMED POSITIVE; URINE COCAINE SCREEN NEGATIVE; URINE MARIJUANA (THC) SCREEN NEGATIVE; URINE METHADONE SCREEN NEGATIVE; URINE PHENCYCLIDINE SCREEN NEGATIVE
[2018-11-17 01:42] LABS: FREE T4 (FREE THYROXINE) 1.44 ng/dL (0.78-2.19)
[2018-11-17] MEDS: AZTREONAM 1 GM in DEXTROSE 5%-WATER 50 ML IV SCH ×3 (01:58→17:55)
[2018-11-17] MEDS ORDERED: MIDAZOLAM HCL 50 MG/100 ML RTUINJ ONE (03:10)
[2018-11-17] MEDS ORDERED: VANCOMYCIN HCL INJ 1000 MG VIAL IV PRN (03:51)
[2018-11-17] MEDS ORDERED: VANCOMYCIN HCL 1,500 MG in DEXTROSE 5%-WATER 250 ML IV ONE (04:00)
[2018-11-17] MEDS: MIDAZOLAM HCL 50 MG/100 ML RTUINJ IV PRN ×2 (04:13→14:29)
[2018-11-17] MEDS: PROPOFOL 1,000 MG/100 ML INFUS..BTL IV PRN ×2 (04:14→14:29)
[2018-11-17] MEDS ORDERED: VANCOMYCIN HCL INJ 1000 MG VIAL ONE (04:28)
[2018-11-17] MEDS ORDERED: VANCOMYCIN HCL INJ 500 MG VIAL ONE (04:28)
[2018-11-17 06:04] LABS: ARTERIAL BLOOD BASE EXCESS 2.1 mmol/L; ARTERIAL BLOOD H2CO3 1.37 mmol/L (1.05-1.35); ARTERIAL BLOOD HCO3 27.5 mmol/L (20-24); ARTERIAL BLOOD PCO2 45.5 mmHg (35-45); ARTERIAL BLOOD PO2 110.3 mmHg (80-100); ARTERIAL BLOOD TOTAL CO2 28.9 mmol/L (23-27)
[2018-11-17 06:06] LABS: ARTERIAL BLOOD FIO2 40%
[2018-11-17 06:08] LABS: ABSOLUTE LYMPHOCYTES (AUTO) 0.8 10^3/uL (0.5-4.7); ABSOLUTE MONOCYTES (AUTO) 0.1 10^3/uL (0.1-1.4); BASOPHILS % (AUTO) 0.1 % (0-2); EOSINOPHILS % (AUTO) 0.1 % (0-6); HEMATOCRIT 41.1 % (37.9-51.0); HEMOGLOBIN 14.3 g/dL (13.5-17.0); MEAN CORPUSCULAR HEMOGLOBIN 31.6 pg (27.0-33.4); MEAN CORPUSCULAR HGB CONC 34.7 g/dL (32.0-36.0); MEAN CORPUSCULAR VOLUME 91 fl (80-97); MONOCYTES % (AUTO) 1.2 % (3-13); PLATELET COUNT 205 10^3/uL (150-450); RED BLOOD COUNT 4.52 10^6/uL (4.35-5.55); RED CELL DISTRIBUTION WIDTH 13.7 % (11.5-14.0); SEGMENTED NEUTROPHILS % (AUTO) 90.6 % (42-78); TOTAL CELLS COUNTED % (AUTO) 100 %
[2018-11-17 06:27] LABS: ALANINE AMINOTRANSFERASE 24 U/L (21-72); ALBUMIN 4.1 g/dL (3.5-5.0); ALKALINE PHOSPHATASE 54 U/L (38-126); ANION GAP 8 (5-19); ASPARTATE AMINO TRANSFERASE 19 U/L (17-59); BILIRUBIN,DIRECT 0.4 mg/dL (0.0-0.4); BILIRUBIN,TOTAL 0.7 mg/dL (0.2-1.3); BLOOD UREA NITROGEN 27 mg/dL (7-20); CARBON DIOXIDE 25 mmol/L (22-30); CHLORIDE 109 mmol/L (98-107); CHOLESTEROL 190.37 mg/dL (0-200); CREATINE KINASE 39 U/L (55-170); GLUCOSE 151 mg/dL (75-110); POTASSIUM 4.9 mmol/L (3.6-5.0); SODIUM 142.3 mmol/L (137-145); TOTAL PROTEIN 7.1 g/dL (6.3-8.2); TRIGLYCERIDES 90 mg/dL (<150)
[2018-11-17 06:36] LABS: CREATINE KINASE MB 2.13 ng/mL (<4.55)
[2018-11-17 06:38] LABS: DIRECT LDL 139 mg/dL (<100)
[2018-11-17 06:40] LABS: TROPONIN I 0.144 ng/mL
--- NOTE | 2018-11-17 08:49 | RADIOLOGY REPORT (SQ) ---
EXAM DESCRIPTION: CHEST SINGLE VIEW COMPLETED DATE/TIME: 11/17/2018 6:46 am REASON FOR STUDY: resp. failure COMPARISON: CT chest 02/27/2018 AP chest 10/15/2018, 11/16/2018 EXAM PARAMETERS: NUMBER OF VIEWS: One view. TECHNIQUE: Single frontal radiographic view of the chest acquired. RADIATION DOSE: NA LIMITATIONS: None. FINDINGS: LUNGS AND PLEURA: Since 11/16/2018, significant decrease in the alveolar and interstitial p ulmonary edema pattern. On today's study, pulmonary vascular prominence with Ada lines persist. No pleural effusions. No pneumothorax. MEDIASTINUM AND HILAR STRUCTURES: No masses. Contour normal. HEART AND VASCULAR STRUCTURES: Stable cardiomegaly, old sternotomy for CABG. BONES: No acute findings. HARDWARE: Endotracheal tube 3 cm above the yesika. Nasogastric tube tip and side port in the stomach . OTHER: No other significant finding. IMPRESSION: Infra pulmonary edema pattern Tubes and lines in good positioning Stable cardiomegaly post CABG with pulmonary vascular prominence TECHNICAL DOCUMENTATION: JOB ID: [id number] [employer]- All Rights Reserved Reading location - IP/workstation name: [facility] [place]
[2018-11-17] MEDS: PANTOPRAZOLE SODIUM 40 MG VIAL IV SCH ×2 (10:37→22:00)
[2018-11-17] MEDS: ENOXAPARIN SODIUM INJ 40 MG/0.4 ML DISP.SYRIN SUBCUT SCH (10:37)
[2018-11-17 12:58] LABS: CREATINE KINASE MB 2.62 ng/mL (<4.55); TROPONIN I 0.103 ng/mL
[2018-11-17] MEDS ORDERED: DABIGATRAN ETEXILATE 150 MG CAPSULE PO SCH ×2 (13:15→22:00)
[2018-11-17] MEDS ORDERED: SUCRALFATE SUSP 1 GM/10 ML UDCUP GT ONE (15:00)
[2018-11-17] MEDS: DILTIAZEM HCL 60 MG TABLET GT SCH ×2 (15:10→22:00)
[2018-11-17] MEDS: VANCOMYCIN HCL 750 MG in DEXTROSE 5%-WATER 250 ML IV SCH (17:55)
[2018-11-17] MEDS ORDERED: ATORVASTATIN CALCIUM 10 MG TABLET NG SCH (18:00)
[2018-11-17] MEDS ORDERED: ATORVASTATIN CALCIUM 10 MG TABLET PO SCH (18:00)
[2018-11-17] MEDS ORDERED: DOCUSATE SODIUM 100 MG/10 ML UDC PO SCH (18:00)
[2018-11-17] MEDS ORDERED: (PENDING PHARMACY ID) (Pravastatin Sodium [Pravachol] 40 MG) PO SCH (18:00)
[2018-11-17] MEDS ORDERED: SUCRALFATE 1 GM TABLET NG SCH (18:00)
[2018-11-17] MEDS ORDERED: DOCUSATE SODIUM 100 MG CAPSULE PO SCH (18:00)
--- NOTE | 2018-11-17 21:39 | PDOC H&P ---
History of Present Illness Admission Date/PCP: 11/16/18 23:32 DEYSI DIANE Patient complains of: Difficulty with breathing History of Present Illness: RUKHSANA GRAHAM is a 68 year old male noncompliant patient known to my practice. He was brought to the ED intubated in the field by EMS crew due to severe difficulty with breathing. His initial evaluation did revealed respiratory acidosis. Patient was found in atrial fibrillation with rapid ventricular rate. He was managed with IV Solu Medrol, bronchodilators and Cardizem as indicated. Since admission there has been significant gastric content with brownish color suggestive of GI bleeding probably due to stress ulcer. Patient's serum digoxin was undetected at presentation. He was admitted to ICU for further evaluation and management. His morbidities include COPD, Chronic Atrial fibrillation, Coronary Artery Disease s/p CABG, Hypertension, Hyperlipidemia, and old Myocardial Infarction. Past Medical History Cardiac Medical History: Reports: Atrial Fibrillation, Congestive Heart Failure, Coronary Artery Disease, Myocardial Infarction - 2010 Denies: DVT, Pulmonary Embolism Pulmonary Medical History: Reports: Chronic Obstructive Pulmonary Disease (COPD), Pneumonia Denies: Asthma, Sleep Apnea Neurological Medical History: Denies: Seizures Endocrine Medical History: Denies: Diabetes Mellitus Type 1, Diabetes Mellitus Type 2 Malignancy Medical History: Reports: Skin Cancer GI Medical History: Denies: Cirrhosis, Hepatitis Musculoskeltal Medical History: Reports: Arthritis Denies: Gout Skin Medical History: Denies: Eczema, Psoriasis Psychiatric Medical History: Denies: Depression Hematology: Denies: Anemia, Bleeding Tendencies Past Surgical History Past Surgical History: Reports: Cardiac Catheterization - stent, Coronary Artery Bypass Graft - 11/2011, Coronary Stent Social History Smoking Status: Current Every Day Smoker Frequency of Alcohol Use: None Hx Recreational Drug Use: No Drugs: None Hx Prescription Drug Abuse: No - Advance Directive Resuscitation Status: Full Code Family History Family History: CAD Parental Family History Reviewed: Yes Children Family History Reviewed: Yes Sibling(s) Family History Reviewed.: Yes Medication/Allergy Home Medications: Dabigatran Etexilate Mesylate [Pradaxa 150 mg Capsule] 150 mg PO Q12 11/17/18 Digoxin [Lanoxin 0.25 mg Tablet] 0.25 mg PO DAILY 11/17/18 Diltiazem HCl [Cardizem Cd 120 mg Capsule] 120 mg PO Q12 11/17/18 Docusate Sodium [Colace 100 mg Capsule] 100 mg PO BID 11/17/18 Ipratropium/Albuterol Sulfate [Combivent Respimat 4 gm Mdi] 2 puff IH Q4HP PRN 11/17/18 Oxycodone HCl/Acetaminophen [Oxycodone-Acetaminophen 10-325] 7.5 - 325 mg PO Q6HP PRN MDD 4 11/17/18 Pravastatin Sodium [Pravachol] 40 mg PO QPM 11/17/18 Umeclidinium Brm/Vilanterol Tr [Anoro Ellipta 62.5-25 Mcg INH] 1 puff IH DAILY 11/17/18 Allergies/Adverse Reactions: Penicillins Allergy (Severe, Verified 07/15/16 10:34) turned blue as infant hydrocodone bitartrate [From Vicodin] Allergy (Intermediate, Verified 07/15/16 10:34) N & V acetaminophen [From Tylenol] Allergy (Verified 11/12/17 20:20) aspirin Allergy (Verified 11/12/17 20:20) Review of Systems ROS unobtainable: Due to endotracheal tube Physical Exam Vital Signs: Temp Pulse Resp BP Pulse Ox 97.7 F 81 22 H 97/70 L 95 11/17/18 07:19 11/17/18 08:00 11/17/18 08:00 11/17/18 03:05 11/17/18 08:00 Intake & Output 11/16/18 11/17/18 11/18/18 06:59 06:59 06:59 Intake Total 541 Output Total 75 35 Balance 466 -35 Weight 70.6 kg General appearance: PRESENT: severe distress - remain intubated and sedated Head exam: PRESENT: atraumatic, normocephalic Eye exam: PRESENT: conjunctiva pink, EOMI, PERRLA. ABSENT: scleral icterus Ear exam: PRESENT: normal external ear exam Mouth exam: PRESENT: moist Respiratory exam: PRESENT: decreased breath sounds, prolonged expiratory phas, rhonchi, wheezes Cardiovascular exam: PRESENT: RRR. ABSENT: diastolic murmur, rubs, systolic murmur Vascular exam: PRESENT: normal capillary refill. ABSENT: pallor GI/Abdominal exam: PRESENT: normal bowel sounds, soft. ABSENT: distended, guarding, mass, organolmegaly, rebound, tenderness Extremities exam: PRESENT: pedal edema Musculoskeletal exam: PRESENT: deformity - related to multiple joints involvement with arthritis Neurological exam: PRESENT: altered - sedated on IV versed Skin exam: PRESENT: dry, warm Results Laboratory Results: 11/17/18 05:51 11/17/18 05:51 11/16/18 11/16/18 11/16/18 21:30 21:30 21:30 WBC 13.0 H RBC 4.93 Hgb 15.5 Hct 45.9 MCV 93 MCH 31.5 MCHC 33.8 RDW 13.7 Plt Count 280 Seg Neutrophils % 66.2 Lymphocytes % 25.9 Monocytes % 5.8 Eosinophils % 1.2 Basophils % 0.9 Absolute Neutrophils 8.6 H Absolute Lymphocytes 3.4 Absolute Monocytes 0.7 Absolute Eosinophils 0.1 Absolute Basophils 0.1 Carbonic Acid HCO3/H2CO3 Ratio ABG pH ABG pCO2 ABG pO2 ABG HCO3 ABG O2 Saturation ABG Base Excess FiO2 Sodium 143.1 Potassium 4.6 Chloride 107 Carbon Dioxide 27 Anion Gap 9 BUN 22 H Creatinine 1.41 H Est GFR ( Amer) > 60 Est GFR (Non-Af Amer) 50 L Glucose 208 H Lactic Acid 1.6 Calcium 8.8 Phosphorus Magnesium Total Bilirubin 0.6 AST 22 ALT 20 L Alkaline Phosphatase 64 Ammonia Total Protein 8.0 Albumin 4.6 Triglycerides Cholesterol LDL Cholesterol Direct VLDL Cholesterol HDL Cholesterol Amylase Lipase TSH Free T4 Urine Color Urine Appearance Urine pH Ur Specific [place] Urine Protein Urine Glucose (UA) Urine Ketones Urine Blood Urine Nitrite Ur Leukocyte Esterase Urine WBC (Auto) Urine RBC (Auto) 11/16/18 11/16/18 11/16/18 21:30 21:30 21:51 WBC RBC Hgb Hct MCV MCH MCHC RDW Plt Count Seg Neutrophils % Lymphocytes % Monocytes % Eosinophils % Basophils % Absolute Neutrophils Absolute Lymphocytes Absolute Monocytes Absolute Eosinophils Absolute Basophils Carbonic Acid 2.05 H HCO3/H2CO3 Ratio 11:1 ABG pH 7.17 L* ABG pCO2 68.2 H ABG pO2 76.9 L ABG HCO3 24.2 H ABG O2 Saturation 91.2 L ABG Base Excess -5.9 FiO2 60% Sodium Potassium Chloride Carbon Dioxide Anion Gap BUN Creatinine Est GFR ( Amer) Est GFR (Non-Af Amer) Glucose Lactic Acid Calcium Phosphorus 6.8 H Magnesium 2.1 Total Bilirubin AST ALT Alkaline Phosphatase Ammonia Total Protein Albumin Triglycerides Cholesterol LDL Cholesterol Direct VLDL Cholesterol HDL Cholesterol Amylase 41 Lipase 97.8 TSH 4.93 H Free T4 1.44 Urine Color Urine Appearance Urine pH Ur Specific [place] Urine Protein Urine Glucose (UA) Urine Ketones Urine Blood Urine Nitrite Ur Leukocyte Esterase Urine WBC (Auto) Urine RBC (Auto) 11/16/18 11/16/18 11/17/18 22:42 23:05 00:08 WBC RBC Hgb Hct MCV MCH MCHC RDW Plt Count Seg Neutrophils % Lymphocytes % Monocytes % Eosinophils % Basophils % Absolute Neutrophils Absolute Lymphocytes Absolute Monocytes Absolute Eosinophils Absolute Basophils Carbonic Acid 2.24 H HCO3/H2CO3 Ratio 12:1 ABG pH 7.18 L* ABG pCO2 74.3 H* ABG pO2 87.1 ABG HCO3 27.0 H ABG O2 Saturation 93.9 L ABG Base Excess -3.7 FiO2 70% Sodium Potassium Chloride Carbon Dioxide Anion Gap BUN Creatinine Est GFR ( Amer) Est GFR (Non-Af Amer) Glucose Lactic Acid Calcium Phosphorus Magnesium Total Bilirubin AST ALT Alkaline Phosphatase Ammonia 13.0 Total Protein Albumin Triglycerides Cholesterol LDL Cholesterol Direct VLDL Cholesterol HDL Cholesterol Amylase Lipase TSH Free T4 Urine Color YELLOW Urine Appearance SLIGHTLY-CLOUDY Urine pH 5.0 Ur Specific [place] 1.016 Urine Protein 100 H Urine Glucose (UA) NEGATIVE Urine Ketones NEGATIVE Urine Blood NEGATIVE Urine Nitrite NEGATIVE Ur Leukocyte Esterase NEGATIVE Urine WBC (Auto) 3 Urine RBC (Auto) 0 11/17/18 11/17/18 11/17/18 01:27 05:50 05:51 WBC RBC Hgb Hct MCV MCH MCHC RDW Plt Count Seg Neutrophils % Lymphocytes % Monocytes % Eosinophils % Basophils % Absolute Neutrophils Absolute Lymphocytes Absolute Monocytes Absolute Eosinophils Absolute Basophils Carbonic Acid 1.90 H 1.37 H HCO3/H2CO3 Ratio 14:1 20:1 ABG pH 7.25 L 7.40 ABG pCO2 63.0 H 45.5 H ABG pO2 168.6 H 110.3 H ABG HCO3 27.1 H 27.5 H ABG O2 Saturation 98.8 H 98.0 ABG Base Excess -1.7 2.1 FiO2 60% 40% Sodium 142.3 Potassium 4.9 Chloride 109 H Carbon Dioxide 25 Anion Gap 8 BUN 27 H Creatinine 1.39 H Est GFR ( Amer) > 60 Est GFR (Non-Af Amer) 51 L Glucose 151 H Lactic Acid Calcium 9.0 Phosphorus Magnesium Total Bilirubin 0.7 AST 19 ALT 24 Alkaline Phosphatase 54 Ammonia Total Protein 7.1 Albumin 4.1 Triglycerides 90 Cholesterol 190.37 LDL Cholesterol Direct 139 H VLDL Cholesterol 18.0 HDL Cholesterol 41 Amylase Lipase TSH Free T4 Urine Color Urine Appearance Urine pH Ur Specific [place] Urine Protein Urine Glucose (UA) Urine Ketones Urine Blood Urine Nitrite Ur Leukocyte Esterase Urine WBC (Auto) Urine RBC (Auto) 11/17/18 11/17/18 05:51 05:51 WBC 10.0 RBC 4.52 Hgb 14.3 Hct 41.1 MCV 91 MCH 31.6 MCHC 34.7 RDW 13.7 Plt Count 205 Seg Neutrophils % 90.6 H Lymphocytes % 8.0 L Monocytes % 1.2 L Eosinophils % 0.1 Basophils % 0.1 Absolute Neutrophils 9.0 H Absolute Lymphocytes 0.8 Absolute Monocytes 0.1 Absolute Eosinophils 0.0 Absolute Basophils 0.0 Carbonic Acid HCO3/H2CO3 Ratio ABG pH ABG pCO2 ABG pO2 ABG HCO3 ABG O2 Saturation ABG Base Excess FiO2 Sodium Potassium Chloride Carbon Dioxide Anion Gap BUN Creatinine Est GFR ( Amer) Est GFR (Non-Af Amer) Glucose Lactic Acid Calcium Phosphorus Magnesium 2.2 Total Bilirubin AST ALT Alkaline Phosphatase Ammonia Total Protein Albumin Triglycerides Cholesterol LDL Cholesterol Direct VLDL Cholesterol HDL Cholesterol Amylase Lipase TSH Free T4 Urine Color Urine Appearance Urine pH Ur Specific [place] Urine Protein Urine Glucose (UA) Urine Ketones Urine Blood Urine Nitrite Ur Leukocyte Esterase Urine WBC (Auto) Urine RBC (Auto) 11/16/18 11/17/18 11/17/18 21:30 00:08 00:08 Creatine Kinase 43 L CK-MB (CK-2) Troponin I 0.016 NT-Pro-B Natriuret Pep 2560 H 2850 H 11/17/18 11/17/18 11/17/18 00:08 05:51 05:51 Creatine Kinase 39 L CK-MB (CK-2) 1.69 2.13 Troponin I 0.055 0.144 NT-Pro-B Natriuret Pep Impressions: Head CT 11/16/18 22:30 IMPRESSION: Atrophy with small vessel ischemic change. Negative for acute intracranial abnormality TECHNICAL DOCUMENTATION: Quality ID # 436: Final reports with documentation of one or more dose reduction techniques (e.g., Automated exposure control, adjustment of the mA and/or kV according to patient size, use of iterative reconstruction technique) copyright 2011 [employer]- All Rights Reserved KUB X-Ray 11/16/18 23:43 IMPRESSION: Tip of the enteric tube likely in the proximal stomach. copyright 2010 [employer]- All Rights Reserved Assessment & Plan - Diagnosis (1) Acute respiratory failure with hypercapnia Is this a current diagnosis for this admission?: Yes Plan: Maintain on ventilator support to correct his respiratory acidosis and h ypercapnia. (2) Chronic obstructive pulmonary disease with (acute) exacerbation Is this a current diagnosis for this admission?: Yes Plan: Maintain on bronchodilators. Remain cautious with Solu Medrol usage in view of concern about ongoing infection. (3) Chronic atrial fibrillation with rapid ventricular response Is this a current diagnosis for this admission?: Yes Plan: Patient did revert to sinus rhythm after administration of IV Cardizem. Maintain on his preadmission medication for rate control. (4) Suspected infectious disease Is this a current diagnosis for this admission?: Yes Plan: Continue IV Aztreonam and Vancomycin coverage. (5) Gastric stress ulcer Is this a current diagnosis for this admission?: Yes Plan: Maintain on IV Protonix therapy. Start on tube feeding with Oxepa at 20 ml/hour. (6) HTN (hypertension) Qualifiers: Hypertension type: essential hypertension Qualified Code(s): I10 - Essential (primary) hypertension Is this a current diagnosis for this admission?: Yes Plan: Maintain on preadmission medication management. (7) CAD (coronary artery disease) Qualifiers: Coronary Disease-Associated Artery/Lesion type: unspecified vessel or lesion type [place] vs. transplanted heart: [place] heart Associated angina: without angina Qualified Code(s): I25.10 - Atherosclerotic heart disease of [place] coronary artery without angina pectoris Is this a current diagnosis for this admission?: Yes Plan: Maintain on preadmission medication management. (8) HLD (hyperlipidemia) Qualifiers: Hyperlipidemia type: pure hypercholesterolemia Qualified Code(s): E78.00 - Pure hypercholesterolemia, unspecified; E78.0 - Pure hypercholesterolemia Is this a current diagnosis for this admission?: Yes Plan: Maintain on preadmission medication management. (9) S/P CABG (coronary artery bypass graft) Is this a current diagnosis for this admission?: Yes Plan: Maintain on preadmission medication management. - Time Time Spent: 50 to 70 Minutes Medications reviewed and adjusted accordingly: Yes Anticipated discharge: Home with Homehealth Within: Other - Inpatient Certification Based on my medical assessment, after consideration of the patient's comorbidities, presenting symptoms, or acuity I expect that the services needed warrant INPATIENT care.: Yes I certify that my determination is in accordance with my understanding of Medicare's requirements for reasonable and necessary INPATIENT services [42 CFR 412.3e].: Yes Medical Necessity: Need Close Monitoring Due to Risk of Patient Decompensation, Need For IV Fluids, Need For Continuous Telemetry Monitoring, Need for Nebulizer Therapy and Monitoring of Response, Risk of Complication if Not Cared For in Hospital Post Hospital Care: D/C Dynamicist Documentation - Plan Summary Plan Summary: See admitting attending physician orders as per above care plan.
[2018-11-17] MEDS: ATORVASTATIN CALCIUM 10 MG TABLET NG SCH (22:00)
[2018-11-17] MEDS ORDERED: DILTIAZEM HCL 120 MG CAP.SR.24H PO SCH (22:00)
[2018-11-17] MEDS: DOCUSATE SODIUM 100 MG/10 ML UDC PO SCH (22:49)
--- NOTE | 2018-11-18 00:13 | EKG REPORT ---
SEVERITY:- ABNORMAL ECG - SINUS RHYTHM PROBABLE LVH WITH SECONDARY REPOL ABNRM BORDERLINE INFERIOR Q WAVES BORDERLINE PROLONGED QT INTERVAL : Confirmed by: Ismael Stout 18-Nov-2018 00:12:40
--- NOTE | 2018-11-18 00:14 | EKG REPORT ---
SEVERITY:- ABNORMAL ECG - SINUS TACHYCARDIA VS AFL WITH 2:1 CONDUCTION, REC REPEAT EKG AFTER RATE CONTROL VENTRICULAR PREMATURE COMPLEX BORDERLINE RIGHT AXIS DEVIATION BORDERLINE INFERIOR Q WAVES BORDERLINE ST DEPRESSION, ANTEROLATERAL LEADS ABNORMAL T, CONSIDER ISCHEMIA, DIFFUSE LEADS PROLONGED QT INTERVAL : Confirmed by: Ismael Stout 18-Nov-2018 00:14:17
[2018-11-18] MEDS: RINGERS SOLUTION,LACTATED 1,000 ML IV PRN ×2 (01:00→16:37)
[2018-11-18] MEDS: AZTREONAM 1 GM in DEXTROSE 5%-WATER 50 ML IV SCH ×3 (02:30→17:08)
[2018-11-18] MEDS: DILTIAZEM HCL 60 MG TABLET GT SCH ×4 (03:05→21:27)
[2018-11-18 04:08] LABS: ABSOLUTE BASOPHILS # (AUTO) 0.1 10^3/uL (0.0-0.2); ABSOLUTE LYMPHOCYTES (AUTO) 1.8 10^3/uL (0.5-4.7); ABSOLUTE MONOCYTES (AUTO) 1.1 10^3/uL (0.1-1.4); ABSOLUTE NEUT (AUTO) 13.6 10^3/uL (1.7-8.2); BASOPHILS % (AUTO) 0.6 % (0-2); HEMATOCRIT 38.1 % (37.9-51.0); HEMOGLOBIN 13.1 g/dL (13.5-17.0); LYMPHOCYTES % (AUTO) 10.7 % (13-45); MEAN CORPUSCULAR HEMOGLOBIN 31.2 pg (27.0-33.4); MEAN CORPUSCULAR HGB CONC 34.4 g/dL (32.0-36.0); MEAN CORPUSCULAR VOLUME 91 fl (80-97); MONOCYTES % (AUTO) 6.6 % (3-13); PLATELET COUNT 172 10^3/uL (150-450); RED CELL DISTRIBUTION WIDTH 13.5 % (11.5-14.0); SEGMENTED NEUTROPHILS % (AUTO) 82.1 % (42-78); TOTAL CELLS COUNTED % (AUTO) 100 %; WHITE BLOOD COUNT 16.6 10^3/uL (4.0-10.5)
[2018-11-18 04:30] LABS: ALANINE AMINOTRANSFERASE 24 U/L (21-72); ALBUMIN 3.5 g/dL (3.5-5.0); ALKALINE PHOSPHATASE 43 U/L (38-126); ANION GAP 7 (5-19); ASPARTATE AMINO TRANSFERASE 36 U/L (17-59); BILIRUBIN,DIRECT 0.3 mg/dL (0.0-0.4); BILIRUBIN,TOTAL 0.6 mg/dL (0.2-1.3); BLOOD UREA NITROGEN 31 mg/dL (7-20); CALCIUM 8.7 mg/dL (8.4-10.2); CARBON DIOXIDE 25 mmol/L (22-30); CHLORIDE 106 mmol/L (98-107); GLUCOSE 123 mg/dL (75-110); POTASSIUM 4.4 mmol/L (3.6-5.0); SODIUM 138.1 mmol/L (137-145); TOTAL PROTEIN 6.3 g/dL (6.3-8.2)
[2018-11-18] MEDS: VANCOMYCIN HCL 750 MG in DEXTROSE 5%-WATER 250 ML IV SCH ×2 (06:53→17:43)
[2018-11-18] MEDS: MIDAZOLAM HCL 50 MG/100 ML RTUINJ IV PRN ×2 (06:59→19:46)
--- NOTE | 2018-11-18 08:07 | PDOC PROGRESS REPORT ---
Subjective Progress Note for:: 11/18/18 Subjective:: Remain intubated and vent supported on Versed and Diprivan sedation. Tolerating enteral tube feeding. No reported fever. Reason For Visit: ACUTE RESPIRATORY FAILURE Physical Exam Vital Signs: Temp Pulse Resp BP Pulse Ox 98.1 F 74 20 105/64 96 11/18/18 06:33 11/18/18 04:00 11/18/18 06:33 11/18/18 06:33 11/18/18 06:33 Intake & Output 11/17/18 11/18/18 11/19/18 06:59 06:59 06:59 Intake Total 541 3279 Output Total 75 1120 Balance 466 2159 Weight 70.6 kg 73.2 kg Physical Exam: ET and OG tubes insitu. Head exam: PRESENT: atraumatic, normocephalic Eye exam: PRESENT: conjunctiva pink, EOMI, PERRLA. ABSENT: scleral icterus Ear exam: PRESENT: normal external ear exam Respiratory exam: PRESENT: clear to auscultation nelson, decreased breath sounds Cardiovascular exam: PRESENT: RRR. ABSENT: diastolic murmur, rubs, systolic murmur Vascular exam: ABSENT: pallor GI/Abdominal exam: PRESENT: normal bowel sounds, soft Extremities exam: ABSENT: pedal edema Neurological exam: PRESENT: altered - sedated Skin exam: PRESENT: dry, warm Results Laboratory Results: 11/18/18 04:02 11/18/18 04:02 11/17/18 11/18/18 11/18/18 05:51 04:02 04:02 WBC 16.6 H RBC 4.20 L Hgb 13.1 L Hct 38.1 MCV 91 MCH 31.2 MCHC 34.4 RDW 13.5 Plt Count 172 Seg Neutrophils % 82.1 H Lymphocytes % 10.7 L Monocytes % 6.6 Eosinophils % 0.0 Basophils % 0.6 Absolute Neutrophils 13.6 H Absolute Lymphocytes 1.8 Absolute Monocytes 1.1 Absolute Eosinophils 0.0 Absolute Basophils 0.1 Sodium 138.1 Potassium 4.4 Chloride 106 Carbon Dioxide 25 Anion Gap 7 BUN 31 H Creatinine 1.25 Est GFR ( Amer) > 60 Est GFR (Non-Af Amer) 57 L Glucose 123 H Calcium 8.7 Phosphorus 4.4 D Total Bilirubin 0.6 AST 36 ALT 24 Alkaline Phosphatase 43 Total Protein 6.3 Albumin 3.5 01/13/19 01/14/19 01/14/19 21:30 00:08 00:08 Creatine Kinase 43 L CK-MB (CK-2) Troponin I 0.016 NT-Pro-B Natriuret Pep 2560 H 2850 H 11/17/18 11/17/18 11/17/18 00:08 05:51 05:51 Creatine Kinase 39 L CK-MB (CK-2) 1.69 2.13 Troponin I 0.055 0.144 NT-Pro-B Natriuret Pep 11/17/18 11/17/18 12:13 12:13 Creatine Kinase 41 L CK-MB (CK-2) 2.62 Troponin I 0.103 NT-Pro-B Natriuret Pep Impressions: Head CT 11/16/18 22:30 IMPRESSION: Atrophy with small vessel ischemic change. Negative for acute intracranial abnormality TECHNICAL DOCUMENTATION: Quality ID # 436: Final reports with documentation of one or more dose reduction techniques (e.g., Automated exposure control, adjustment of the mA and/or kV according to patient size, use of iterative reconstruction technique) copyright 2010 [employer]- All Rights Reserved KUB X-Ray 11/16/18 23:43 IMPRESSION: Tip of the enteric tube likely in the proximal stomach. copyright 2010 [employer]- All Rights Reserved Chest X-Ray 11/17/18 06:00 IMPRESSION: Infra pulmonary edema pattern Tubes and lines in good positioning Stable cardiomegaly post CABG with pulmonary vascular prominence Assessment & Plan - Diagnosis (1) Acute respiratory failure with hypercapnia Is this a current diagnosis for this admission?: Yes (2) Chronic obstructive pulmonary disease with (acute) exacerbation Is this a current diagnosis for this admission?: Yes (3) Chronic atrial fibrillation with rapid ventricular response Is this a current diagnosis for this admission?: Yes (4) Suspected infectious disease Is this a current diagnosis for this admission?: Yes (5) Gastric stress ulcer Is this a current diagnosis for this admission?: Yes (6) HTN (hypertension) Qualifiers: Hypertension type: essential hypertension Qualified Code(s): I10 - Essential (primary) hypertension Is this a current diagnosis for this admission?: Yes (7) CAD (coronary artery disease) Qualifiers: Coronary Disease-Associated Artery/Lesion type: unspecified vessel or lesion type [place] vs. transplanted heart: [place] heart Associated angina: without angina Qualified Code(s): I25.10 - Atherosclerotic heart disease of [place] coronary artery without angina pectoris Is this a current diagnosis for this admission?: Yes (8) HLD (hyperlipidemia) Qualifiers: Hyperlipidemia type: pure hypercholesterolemia Qualified Code(s): E78.00 - Pure hypercholesterolemia, unspecified; E78.0 - Pure hypercholesterolemia Is this a current diagnosis for this admission?: Yes (9) S/P CABG (coronary artery bypass graft) Is this a current diagnosis for this admission?: Yes - Time Time Spent with patient: 25-34 minutes Medications reviewed and adjusted accordingly: Yes Anticipated discharge: Home with Homehealth Within: Other - Inpatient Certification Based on my medical assessment, after consideration of the patient's comorbidities, presenting symptoms, or acuity I expect that the services needed warrant INPATIENT care.: Yes I certify that my determination is in accordance with my understanding of Medicare's requirements for reasonable and necessary INPATIENT services [42 CFR 412.3e].: Yes Medical Necessity: Need Close Monitoring Due to Risk of Patient Decompensation, Need For IV Fluids, Need For Continuous Telemetry Monitoring, Need for Nebulizer Therapy and Monitoring of Response, Need for IV Antibiotics, Risk of Complication if Not Cared For in Hospital, Risk of Diagnosis Which Will Require Inpatient Eval/Care/Monitoring Post Hospital Care: D/C Mechanical Systems Design Engineer Documentation - Plan Summary Plan Summary: Continue current management. Add IV Levofloxacin pending culture findings in view of his worsening leukocytosis.
[2018-11-18] MEDS: IPRATROPIUM/ALBUTEROL 0.5-2.5 MG/3 ML AMPUL NEB PRN ×3 (08:24→19:18)
[2018-11-18] MEDS: DIGOXIN 0.25 MG TABLET NG SCH (09:16)
[2018-11-18] MEDS: DOCUSATE SODIUM 100 MG/10 ML UDC PO SCH ×2 (09:17→21:27)
[2018-11-18] MEDS: LEVOFLOXACIN 500 MG/D5W RTU 500 MG/100 ML RTUPB IV SCH (09:17)
[2018-11-18] MEDS: PANTOPRAZOLE SODIUM 40 MG VIAL IV SCH ×2 (09:18→21:27)
[2018-11-18 09:36] LABS: ARTERIAL BLOOD BASE EXCESS 1.8 mmol/L; ARTERIAL BLOOD H2CO3 1.17 mmol/L (1.05-1.35); ARTERIAL BLOOD O2 SATURATION 97.8 % (94-98); ARTERIAL BLOOD PH 7.44 (7.35-7.45); ARTERIAL BLOOD TOTAL CO2 27.2 mmol/L (23-27)
[2018-11-18 09:41] LABS: ARTERIAL BLOOD FIO2 35%
[2018-11-18] MEDS: PROPOFOL 1,000 MG/100 ML INFUS..BTL IV PRN (09:51)
[2018-11-18] MEDS: ENOXAPARIN SODIUM INJ 40 MG/0.4 ML DISP.SYRIN SUBCUT SCH (09:57)
[2018-11-18] MEDS ORDERED: DIGOXIN 0.25 MG TABLET PO SCH (10:00)
--- NOTE | 2018-11-18 10:05 | RADIOLOGY REPORT (SQ) ---
EXAM DESCRIPTION: CHEST SINGLE VIEW COMPLETED DATE/TIME: 11/18/2018 9:54 am REASON FOR STUDY: Resp. Failure COMPARISON: 11/17/2018 EXAM PARAMETERS: NUMBER OF VIEWS: One view. TECHNIQUE: Single frontal radiographic view of the chest acquired. RADIATION DOSE: NA LIMITATIONS: None. FINDINGS: LUNGS AND PLEURA: No significant change in diffuse bilateral interstitial pulmonary opacit y. MEDIASTINUM AND HILAR STRUCTURES: No masses. Contour normal. HEART AND VASCULAR STRUCTURES: Cardiomegaly. BONES: No acute findings. HARDWARE: None in the chest. OTHER: Stable position of endotracheal tube with tip above the yesika. Esophagogastric tube is posit ioned with tip below diaphragm and side port at the gastroesophageal junction IMPRESSION: 1. No significant change in diffuse bilateral interstitial pulmonary opacity, likely pu lmonary edema. No new airspace opacity. 2. Unchanged cardiomegaly. 3. Stable position of endotracheal tube. 4. Esophagogastric tube is positioned with tip below the diaphragm, side port at the gastroesophagea l junction. Recommend advancement to ensure positioning of side port below the diaphragm. TECHNICAL DOCUMENTATION: JOB ID: [id number] [employer]- All Rights Reserved Reading location - IP/workstation name: [email or web address]
[2018-11-18] MEDS ORDERED: ACETYLCYSTEINE 20% SOLN 800 MG/4 ML VIAL.NEB NEB SCH (10:15)
[2018-11-18] MEDS: ACETYLCYSTEINE 20% SOLN 800 MG/4 ML VIAL.NEB NEB SCH ×2 (14:10→19:18)
[2018-11-18 14:26] LABS: AMIODARON SERUM None Detected ug/mL (1.0-2.5); NORAMIODARONE SERUM None Detected ug/mL (1.0-2.5)
--- NOTE | 2018-11-18 14:38 | PDOC CONSULTATION ---
Consultation Consult Date: 11/17/18 Attending physician:: SCOTT MOURA Consult reason:: Acute respiratory failure History of Present Illness Admission Date/PCP: 11/16/18 23:32 DEYSI DIANE History of Present Illness: RUKHSANA GRAHAM is a 68 year old male: Currently intubated and sedated in the ICU per chart patient had was found inside a row complaining shortness of breath and palpitations he was in A. fib with RVR and it was difficult to resolve he was subsequently intubated and and brought to the ER wheezing was improved on digoxin and Cardizem and not sure if he has some amiodarone history of coronary artery disease myocardial infarction COPD and chronic atrial fibrillation. Past Medical History Cardiac Medical History: Reports: Atrial Fibrillation, Congestive Heart Failure, Coronary Artery Disease, Myocardial Infarction - 2010 Denies: DVT, Pulmonary Embolism Pulmonary Medical History: Reports: Chronic Obstructive Pulmonary Disease (COPD), Pneumonia Denies: Asthma, Sleep Apnea Neurological Medical History: Denies: Seizures Endocrine Medical History: Denies: Diabetes Mellitus Type 1, Diabetes Mellitus Type 2 Malignancy Medical History: Reports: Skin Cancer GI Medical History: Denies: Cirrhosis, Hepatitis Musculoskeltal Medical History: Reports: Arthritis Denies: Gout Skin Medical History: Denies: Eczema, Psoriasis Psychiatric Medical History: Denies: Depression Hematology: Denies: Anemia, Bleeding Tendencies Past Surgical History Past Surgical History: Reports: Cardiac Catheterization - stent, Coronary Artery Bypass Graft - 11/2011, Coronary Stent Social History Information Source: [facility] Records Smoking Status: Current Every Day Smoker Frequency of Alcohol Use: None Hx Recreational Drug Use: No Drugs: None Hx Prescription Drug Abuse: No Family History Family History: CAD Parental Family History Reviewed: No Children Family History Reviewed: No Sibling(s) Family History Reviewed.: No Medication/Allergy Home Medications: Dabigatran Etexilate Mesylate [Pradaxa 150 mg Capsule] 150 mg PO Q12 11/17/18 Digoxin [Lanoxin 0.25 mg Tablet] 0.25 mg PO DAILY 11/17/18 Diltiazem HCl [Cardizem Cd 120 mg Capsule] 120 mg PO Q12 11/17/18 Docusate Sodium [Colace 100 mg Capsule] 100 mg PO BID 11/17/18 Ipratropium/Albuterol Sulfate [Combivent Respimat 4 gm Mdi] 2 puff IH Q4HP PRN 11/17/18 Oxycodone HCl/Acetaminophen [Oxycodone-Acetaminophen 10-325] 7.5 - 325 mg PO Q6HP PRN MDD 4 11/17/18 Pravastatin Sodium [Pravachol] 40 mg PO QPM 11/17/18 Umeclidinium Brm/Vilanterol Tr [Anoro Ellipta 62.5-25 Mcg INH] 1 puff IH DAILY 11/17/18 Allergies/Adverse Reactions: Penicillins Allergy (Severe, Verified 07/15/16 10:34) turned blue as hydrocodone bitartrate [From Vicodin] Allergy (Intermediate, Verified 07/15/16 10:34) N & V acetaminophen [From Tylenol] Allergy (Verified 11/12/17 20:20) aspirin Allergy (Verified 11/12/17 20:20) Review of Systems ROS unobtainable: Due to endotracheal tube Physical Exam Vital Signs: Temp Pulse Resp BP Pulse Ox 97.7 F 81 22 H 97/70 L 95 11/17/18 07:19 11/17/18 08:00 11/17/18 08:00 11/17/18 03:05 11/17/18 08:00 Intake & Output 11/16/18 11/17/18 11/18/18 06:59 06:59 06:59 Intake Total 541 Output Total 75 35 Balance 466 -35 Weight 70.6 kg General appearance: PRESENT: no acute distress, disheveled, thin, well- developed, well-nourished. ABSENT: cooperative Head exam: PRESENT: atraumatic, normocephalic Eye exam: PRESENT: conjunctival injection - Right sided, conjunctiva pale, other - Punctate vesicles and pustules. ABSENT: EOMI, nystagmus, scleral icterus Mouth exam: PRESENT: dry mucosa, neck supple, tongue midline, other - ET tube in place Neck exam: ABSENT: carotid bruit, JVD, lymphadenopathy, thyromegaly, tracheal deviation, tracheostomy Respiratory exam: PRESENT: decreased breath sounds, prolonged expiratory phas, rales, rhonchi, unlabored, wheezes. ABSENT: retraction, stridor Cardiovascular exam: PRESENT: irregular rhythm, +S1 Pulses: PRESENT: normal radial pulses GI/Abdominal exam: PRESENT: soft. ABSENT: [place] - [id number] Gentrourinary exam: PRESENT: indwelling catheter Extremities exam: PRESENT: pedal edema. ABSENT: calf tenderness, clubbing, joint swelling Musculoskeletal exam: ABSENT: ambulatory Neurological exam: ABSENT: awake Skin exam: PRESENT: dry, warm Results Laboratory Results: 11/17/18 05:51 11/17/18 05:51 11/16/18 11/16/18 11/16/18 21:30 21:30 21:30 WBC 13.0 H RBC 4.93 Hgb 15.5 Hct 45.9 MCV 93 MCH 31.5 MCHC 33.8 RDW 13.7 Plt Count 280 Seg Neutrophils % 66.2 Lymphocytes % 25.9 Monocytes % 5.8 Eosinophils % 1.2 Basophils % 0.9 Absolute Neutrophils 8.6 H Absolute Lymphocytes 3.4 Absolute Monocytes 0.7 Absolute Eosinophils 0.1 Absolute Basophils 0.1 Carbonic Acid HCO3/H2CO3 Ratio ABG pH ABG pCO2 ABG pO2 ABG HCO3 ABG O2 Saturation ABG Base Excess FiO2 Sodium 143.1 Potassium 4.6 Chloride 107 Carbon Dioxide 27 Anion Gap 9 BUN 22 H Creatinine 1.41 H Est GFR ( Amer) > 60 Est GFR (Non-Af Amer) 50 L Glucose 208 H Lactic Acid 1.6 Calcium 8.8 Phosphorus Magnesium Total Bilirubin 0.6 AST 22 ALT 20 L Alkaline Phosphatase 64 Ammonia Total Protein 8.0 Albumin 4.6 Triglycerides Cholesterol LDL Cholesterol Direct VLDL Cholesterol HDL Cholesterol Amylase Lipase TSH Free T4 Urine Color Urine Appearance Urine pH Ur Specific [place] Urine Protein Urine Glucose (UA) Urine Ketones Urine Blood Urine Nitrite Ur Leukocyte Esterase Urine WBC (Auto) Urine RBC (Auto) 11/16/18 11/16/18 11/16/18 21:30 21:30 21:51 WBC RBC Hgb Hct MCV MCH MCHC RDW Plt Count Seg Neutrophils % Lymphocytes % Monocytes % Eosinophils % Basophils % Absolute Neutrophils Absolute Lymphocytes Absolute Monocytes Absolute Eosinophils Absolute Basophils Carbonic Acid 2.05 H HCO3/H2CO3 Ratio 11:1 ABG pH 7.17 L* ABG pCO2 68.2 H ABG pO2 76.9 L ABG HCO3 24.2 H ABG O2 Saturation 91.2 L ABG Base Excess -5.9 FiO2 60% Sodium Potassium Chloride Carbon Dioxide Anion Gap BUN Creatinine Est GFR ( Amer) Est GFR (Non-Af Amer) Glucose Lactic Acid Calcium Phosphorus 6.8 H Magnesium 2.1 Total Bilirubin AST ALT Alkaline Phosphatase Ammonia Total Protein Albumin Triglycerides Cholesterol LDL Cholesterol Direct VLDL Cholesterol HDL Cholesterol Amylase 41 Lipase 97.8 TSH 4.93 H Free T4 1.44 Urine Color Urine Appearance Urine pH Ur Specific [place] Urine Protein Urine Glucose (UA) Urine Ketones Urine Blood Urine Nitrite Ur Leukocyte Esterase Urine WBC (Auto) Urine RBC (Auto) 11/16/18 11/16/18 11/17/18 22:42 23:05 00:08 WBC RBC Hgb Hct MCV MCH MCHC RDW Plt Count Seg Neutrophils % Lymphocytes % Monocytes % Eosinophils % Basophils % Absolute Neutrophils Absolute Lymphocytes Absolute Monocytes Absolute Eosinophils Absolute Basophils Carbonic Acid 2.24 H HCO3/H2CO3 Ratio 12:1 ABG pH 7.18 L* ABG pCO2 74.3 H* ABG pO2 87.1 ABG HCO3 27.0 H ABG O2 Saturation 93.9 L ABG Base Excess -3.7 FiO2 70% Sodium Potassium Chloride Carbon Dioxide Anion Gap BUN Creatinine Est GFR ( Amer) Est GFR (Non-Af Amer) Glucose Lactic Acid Calcium Phosphorus Magnesium Total Bilirubin AST ALT Alkaline Phosphatase Ammonia 13.0 Total Protein Albumin Triglycerides Cholesterol LDL Cholesterol Direct VLDL Cholesterol HDL Cholesterol Amylase Lipase TSH Free T4 Urine Color YELLOW Urine Appearance SLIGHTLY-CLOUDY Urine pH 5.0 Ur Specific [place] 1.016 Urine Protein 100 H Urine Glucose (UA) NEGATIVE Urine Ketones NEGATIVE Urine Blood NEGATIVE Urine Nitrite NEGATIVE Ur Leukocyte Esterase NEGATIVE Urine WBC (Auto) 3 Urine RBC (Auto) 0 11/17/18 11/17/18 11/17/18 01:27 05:50 05:51 WBC RBC Hgb Hct MCV MCH MCHC RDW Plt Count Seg Neutrophils % Lymphocytes % Monocytes % Eosinophils % Basophils % Absolute Neutrophils Absolute Lymphocytes Absolute Monocytes Absolute Eosinophils Absolute Basophils Carbonic Acid 1.90 H 1.37 H HCO3/H2CO3 Ratio 14:1 20:1 ABG pH 7.25 L 7.40 ABG pCO2 63.0 H 45.5 H ABG pO2 168.6 H 110.3 H ABG HCO3 27.1 H 27.5 H ABG O2 Saturation 98.8 H 98.0 ABG Base Excess -1.7 2.1 FiO2 60% 40% Sodium 142.3 Potassium 4.9 Chloride 109 H Carbon Dioxide 25 Anion Gap 8 BUN 27 H Creatinine 1.39 H Est GFR ( Amer) > 60 Est GFR (Non-Af Amer) 51 L Glucose 151 H Lactic Acid Calcium 9.0 Phosphorus Magnesium Total Bilirubin 0.7 AST 19 ALT 24 Alkaline Phosphatase 54 Ammonia Total Protein 7.1 Albumin 4.1 Triglycerides 90 Cholesterol 190.37 LDL Cholesterol Direct 139 H VLDL Cholesterol 18.0 HDL Cholesterol 41 Amylase Lipase TSH Free T4 Urine Color Urine Appearance Urine pH Ur Specific [place] Urine Protein Urine Glucose (UA) Urine Ketones Urine Blood Urine Nitrite Ur Leukocyte Esterase Urine WBC (Auto) Urine RBC (Auto) 11/17/18 11/17/18 11/17/18 05:51 05:51 05:51 WBC 10.0 RBC 4.52 Hgb 14.3 Hct 41.1 MCV 91 MCH 31.6 MCHC 34.7 RDW 13.7 Plt Count 205 Seg Neutrophils % 90.6 H Lymphocytes % 8.0 L Monocytes % 1.2 L Eosinophils % 0.1 Basophils % 0.1 Absolute Neutrophils 9.0 H Absolute Lymphocytes 0.8 Absolute Monocytes 0.1 Absolute Eosinophils 0.0 Absolute Basophils 0.0 Carbonic Acid HCO3/H2CO3 Ratio ABG pH ABG pCO2 ABG pO2 ABG HCO3 ABG O2 Saturation ABG Base Excess FiO2 Sodium Potassium Chloride Carbon Dioxide Anion Gap BUN Creatinine Est GFR ( Amer) Est GFR (Non-Af Amer) Glucose Lactic Acid Calcium Phosphorus 4.4 D Magnesium 2.2 Total Bilirubin AST ALT Alkaline Phosphatase Ammonia Total Protein Albumin Triglycerides Cholesterol LDL Cholesterol Direct VLDL Cholesterol HDL Cholesterol Amylase Lipase TSH Free T4 Urine Color Urine Appearance Urine pH Ur Specific [place] Urine Protein Urine Glucose (UA) Urine Ketones Urine Blood Urine Nitrite Ur Leukocyte Esterase Urine WBC (Auto) Urine RBC (Auto) 11/16/18 11/17/18 11/17/18 21:30 00:08 00:08 Creatine Kinase 43 L CK-MB (CK-2) Troponin I 0.016 NT-Pro-B Natriuret Pep 2560 H 2850 H 11/17/18 11/17/18 11/17/18 00:08 05:51 05:51 Creatine Kinase 39 L CK-MB (CK-2) 1.69 2.13 Troponin I 0.055 0.144 NT-Pro-B Natriuret Pep Impressions: Head CT 11/16/18 22:30 IMPRESSION: Atrophy with small vessel ischemic change. Negative for acute intracranial abnormality TECHNICAL DOCUMENTATION: Quality ID # [id number]: Final reports with documentation of one or more dose reduction techniques (e.g., Automated exposure control, adjustment of the mA and/or kV according to patient size, use of iterative reconstruction technique) copyright 2010 [employer]- All Rights Reserved KUB X-Ray 11/16/18 23:43 IMPRESSION: Tip of the enteric tube likely in the proximal stomach. copyright 2010 [employer]- All Rights Reserved Chest X-Ray 11/17/18 06:00 IMPRESSION: Infra pulmonary edema pattern Tubes and lines in good positioning Stable cardiomegaly post CABG with pulmonary vascular prominence Assessment & Plan - Diagnosis (1) Atrial fibrillation with rapid ventricular response Is this a current diagnosis for this admission?: Yes Plan: Rate better controlled lead to initial heart failure and pulmonary edema (2) Congestive heart failure (CHF) Qualifiers: Heart failure type: unspecified Heart failure chronicity: unspecified Qualified Code(s): I50.9 - Heart failure, unspecified (3) Pulmonary edema Qualifiers: Chronicity: acute Qualified Code(s): J81.0 - Acute pulmonary edema Is this a current diagnosis for this admission?: Yes Plan: Diuresis is done (4) COPD exacerbation Is this a current diagnosis for this admission?: Yes Plan: Long-acting beta agonist long-acting muscarinic agent (5) HTN (hypertension) Qualifiers: Hypertension type: essential hypertension Qualified Code(s): I10 - Essential (primary) hypertension Is this a current diagnosis for this admission?: Yes Plan: Stable at this time (6) Nicotine dependence, cigarettes, with other nicotine-induced disorders Is this a current diagnosis for this admission?: Yes Plan: Transdermal nicotine - Time Total Critical Time (Minutes): 55
[2018-11-18 18:19] LABS: VANCOMYCIN,TROUGH 13.9 ug/mL (5.0-20.0)
[2018-11-18] MEDS: ATORVASTATIN CALCIUM 10 MG TABLET NG SCH (21:28)
[2018-11-19] MEDS: PROPOFOL 1,000 MG/100 ML INFUS..BTL IV PRN ×2 (01:18→20:23)
[2018-11-19] MEDS: AZTREONAM 1 GM in DEXTROSE 5%-WATER 50 ML IV SCH ×3 (01:19→17:05)
[2018-11-19] MEDS: DILTIAZEM HCL 60 MG TABLET GT SCH ×4 (03:40→21:00)
[2018-11-19 04:23] LABS: ABSOLUTE BASOPHILS # (AUTO) 0.1 10^3/uL (0.0-0.2); ABSOLUTE LYMPHOCYTES (AUTO) 1.8 10^3/uL (0.5-4.7); ABSOLUTE NEUT (AUTO) 8.7 10^3/uL (1.7-8.2); BASOPHILS % (AUTO) 0.7 % (0-2); EOSINOPHILS % (AUTO) 0.2 % (0-6); HEMATOCRIT 37.4 % (37.9-51.0); HEMOGLOBIN 12.9 g/dL (13.5-17.0); LYMPHOCYTES % (AUTO) 15.3 % (13-45); MEAN CORPUSCULAR HEMOGLOBIN 31.2 pg (27.0-33.4); MEAN CORPUSCULAR HGB CONC 34.4 g/dL (32.0-36.0); MEAN CORPUSCULAR VOLUME 91 fl (80-97); MONOCYTES % (AUTO) 8.8 % (3-13); PLATELET COUNT 154 10^3/uL (150-450); RED BLOOD COUNT 4.12 10^6/uL (4.35-5.55); RED CELL DISTRIBUTION WIDTH 14.2 % (11.5-14.0); TOTAL CELLS COUNTED % (AUTO) 100 %; WHITE BLOOD COUNT 11.6 10^3/uL (4.0-10.5)
[2018-11-19 04:41] LABS: ALANINE AMINOTRANSFERASE 28 U/L (21-72); ALBUMIN 3.3 g/dL (3.5-5.0); ALKALINE PHOSPHATASE 45 U/L (38-126); ANION GAP 6 (5-19); ASPARTATE AMINO TRANSFERASE 42 U/L (17-59); BILIRUBIN,DIRECT 0.2 mg/dL (0.0-0.4); BILIRUBIN,TOTAL 0.4 mg/dL (0.2-1.3); BLOOD UREA NITROGEN 25 mg/dL (7-20); CALCIUM 8.5 mg/dL (8.4-10.2); CARBON DIOXIDE 27 mmol/L (22-30); CHLORIDE 108 mmol/L (98-107); GLUCOSE 124 mg/dL (75-110); POTASSIUM 3.9 mmol/L (3.6-5.0); SODIUM 140.5 mmol/L (137-145); TOTAL PROTEIN 5.9 g/dL (6.3-8.2)
--- NOTE | 2018-11-19 07:14 | RADIOLOGY REPORT (SQ) ---
EXAM DESCRIPTION: XR CHEST 1 VIEW COMPLETED DATE/TME: 11/19/2018 06:00 CLINICAL HISTORY: Respiratory Distress. 68 years Male, resp failure COMPARISON: One day prior. NUMBER OF VIEWS/TECHNIQUE: 1/AP FINDINGS: Moderate interstitial markings. Tip of an endotracheal tube is 0.9 cm from the yesika; consider retraction of the endotracheal tube by 4 cm. Adequate appearing enteric tube with tip at the left upper abdominal quadrant. Atherosclerotic vascular disease. Mildly enlarged cardiac silhouette. No pneumothorax. Stable bony thorax. IMPRESSION: Tip of an endotracheal tube is 0.9 cm from the yesika; consider retraction of the endotracheal tube by 4 cm. Else, stable.
[2018-11-19 07:15] LABS: ARTERIAL BLOOD BASE EXCESS 3.4 mmol/L; ARTERIAL BLOOD H2CO3 0.99 mmol/L (1.05-1.35); ARTERIAL BLOOD HCO3 25.9 mmol/L (20-24); ARTERIAL BLOOD O2 SATURATION 97.3 % (94-98); ARTERIAL BLOOD PH 7.51 (7.35-7.45); ARTERIAL BLOOD PO2 84.9 mmHg (80-100); ARTERIAL BLOOD TOTAL CO2 26.9 mmol/L (23-27)
[2018-11-19 07:17] LABS: ARTERIAL BLOOD FIO2 35%
[2018-11-19] MEDS: VANCOMYCIN HCL 750 MG in DEXTROSE 5%-WATER 250 ML IV SCH (07:37)
[2018-11-19] MEDS: MIDAZOLAM HCL 50 MG/100 ML RTUINJ IV PRN ×3 (07:37→23:40)
[2018-11-19] MEDS: ACETYLCYSTEINE 20% SOLN 800 MG/4 ML VIAL.NEB NEB SCH ×2 (08:18→20:01)
[2018-11-19] MEDS: IPRATROPIUM/ALBUTEROL 0.5-2.5 MG/3 ML AMPUL NEB PRN ×2 (08:19→20:02)
[2018-11-19] MEDS: DOCUSATE SODIUM 100 MG/10 ML UDC PO SCH (09:22)
[2018-11-19] MEDS: DIGOXIN 0.25 MG TABLET NG SCH (09:22)
[2018-11-19] MEDS: PANTOPRAZOLE SODIUM 40 MG VIAL IV SCH ×2 (09:22→22:28)
[2018-11-19] MEDS: LEVOFLOXACIN 500 MG/D5W RTU 500 MG/100 ML RTUPB IV SCH (09:55)
[2018-11-19] MEDS: ENOXAPARIN SODIUM INJ 40 MG/0.4 ML DISP.SYRIN SUBCUT SCH (09:55)
[2018-11-19 14:32] LABS: ARTERIAL BLOOD BASE EXCESS 2.9 mmol/L; ARTERIAL BLOOD H2CO3 0.93 mmol/L (1.05-1.35); ARTERIAL BLOOD O2 SATURATION 97.2 % (94-98); ARTERIAL BLOOD PCO2 30.9 mmHg (35-45); ARTERIAL BLOOD PH 7.53 (7.35-7.45); ARTERIAL BLOOD PO2 82.8 mmHg (80-100)
[2018-11-19 14:33] LABS: ARTERIAL BLOOD FIO2 35%
[2018-11-19] MEDS: VANCOMYCIN HCL 1,000 MG in DEXTROSE 5%-WATER 250 ML IV SCH (17:21)
--- NOTE | 2018-11-19 18:10 | PDOC PROGRESS REPORT ---
Subjective Progress Note for:: 11/19/18 Subjective:: Patient remain intubated and vent supported. Tolerating enteral tube feeding. He continue to have copious amount of bronchial secretion. He remain on IV Vancomycin, Levofloxacin and Aztreonam coverage. Sputum culture grew gram positive cocci in clusters. Reason For Visit: ACUTE RESPIRATORY FAILURE Physical Exam Vital Signs: Temp Pulse Resp BP Pulse Ox 99.1 F 73 24 H 112/78 97 11/19/18 07:33 11/19/18 08:19 11/19/18 08:19 11/19/18 07:33 11/19/18 08:19 Intake & Output 11/18/18 11/19/18 11/20/18 06:59 06:59 06:59 Intake Total 3329 2012 Output Total 1120 2080 Balance 2209 - Weight 73.2 kg 74.7 kg Physical Exam: ET and OG tubes insitu. Head exam: PRESENT: atraumatic, normocephalic Eye exam: PRESENT: conjunctiva pink, EOMI, PERRLA. ABSENT: scleral icterus Ear exam: PRESENT: normal external ear exam Respiratory exam: PRESENT: clear to auscultation nelson, decreased breath sounds Cardiovascular exam: PRESENT: RRR. ABSENT: diastolic murmur, rubs, systolic murmur Vascular exam: ABSENT: pallor GI/Abdominal exam: PRESENT: normal bowel sounds, soft Extremities exam: ABSENT: pedal edema Neurological exam: PRESENT: altered - sedated Skin exam: PRESENT: dry, warm Results Laboratory Results: 11/19/18 04:15 11/19/18 04:15 11/18/18 11/19/18 11/19/18 09:29 04:15 04:15 WBC 11.6 H RBC 4.12 L Hgb 12.9 L Hct 37.4 L MCV 91 MCH 31.2 MCHC 34.4 RDW 14.2 H Plt Count 154 Seg Neutrophils % 75.0 Lymphocytes % 15.3 Monocytes % 8.8 Eosinophils % 0.2 Basophils % 0.7 Absolute Neutrophils 8.7 H Absolute Lymphocytes 1.8 Absolute Monocytes 1.0 Absolute Eosinophils 0.0 Absolute Basophils 0.1 Carbonic Acid 1.17 HCO3/H2CO3 Ratio 22:1 ABG pH 7.44 ABG pCO2 39.0 ABG pO2 101.0 H ABG HCO3 26.0 H ABG O2 Saturation 97.8 ABG Base Excess 1.8 FiO2 35% Sodium 140.5 Potassium 3.9 Chloride 108 H Carbon Dioxide 27 Anion Gap 6 BUN 25 H Creatinine 1.11 Est GFR ( Amer) > 60 Est GFR (Non-Af Amer) > 60 Glucose 124 H Calcium 8.5 Magnesium 2.2 Total Bilirubin 0.4 AST 42 ALT 28 Alkaline Phosphatase 45 Total Protein 5.9 L Albumin 3.3 L 11/19/18 06:59 WBC RBC Hgb Hct MCV MCH MCHC RDW Plt Count Seg Neutrophils % Lymphocytes % Monocytes % Eosinophils % Basophils % Absolute Neutrophils Absolute Lymphocytes Absolute Monocytes Absolute Eosinophils Absolute Basophils Carbonic Acid 0.99 L HCO3/H2CO3 Ratio 26:1 ABG pH 7.51 H ABG pCO2 33.0 L ABG pO2 84.9 ABG HCO3 25.9 H ABG O2 Saturation 97.3 ABG Base Excess 3.4 FiO2 35% Sodium Potassium Chloride Carbon Dioxide Anion Gap BUN Creatinine Est GFR ( Amer) Est GFR (Non-Af Amer) Glucose Calcium Magnesium Total Bilirubin AST ALT Alkaline Phosphatase Total Protein Albumin 11/16/18 22:42 Catheterized Urine Urine Culture - Final NO GROWTH 2 DAYS 11/16/18 11/17/18 11/17/18 21:30 00:08 00:08 Creatine Kinase 43 L CK-MB (CK-2) Troponin I 0.016 NT-Pro-B Natriuret Pep 2560 H 2850 H 11/17/18 11/17/18 11/17/18 00:08 05:51 05:51 Creatine Kinase 39 L CK-MB (CK-2) 1.69 2.13 Troponin I 0.055 0.144 NT-Pro-B Natriuret Pep 11/17/18 11/17/18 12:13 12:13 Creatine Kinase 41 L CK-MB (CK-2) 2.62 Troponin I 0.103 NT-Pro-B Natriuret Pep Impressions: Head CT 11/16/18 22:30 IMPRESSION: Atrophy with small vessel ischemic change. Negative for acute intracranial abnormality TECHNICAL DOCUMENTATION: Quality ID # 436: Final reports with documentation of one or more dose reduction techniques (e.g., Automated exposure control, adjustment of the mA and/or kV according to patient size, use of iterative reconstruction technique) copyright 2011 [employer]- All Rights Reserved KUB X-Ray 11/16/18 23:43 IMPRESSION: Tip of the enteric tube likely in the proximal stomach. copyright 2010 [employer]- All Rights Reserved Chest X-Ray 11/19/18 06:00 IMPRESSION: Tip of an endotracheal tube is 0.9 cm from the yesika; consider retraction of the endotracheal tube by 4 cm. Else, stable. Assessment & Plan - Diagnosis (1) Acute respiratory failure with hypercapnia Is this a current diagnosis for this admission?: Yes (2) Chronic obstructive pulmonary disease with (acute) exacerbation Is this a current diagnosis for this admission?: Yes (3) Chronic atrial fibrillation with rapid ventricular response Is this a current diagnosis for this admission?: Yes (4) Suspected infectious disease Is this a current diagnosis for this admission?: Yes (5) Gastric stress ulcer Is this a current diagnosis for this admission?: Yes (6) HTN (hypertension) Qualifiers: Hypertension type: essential hypertension Qualified Code(s): I10 - Essential (primary) hypertension Is this a current diagnosis for this admission?: Yes (7) CAD (coronary artery disease) Qualifiers: Coronary Disease-Associated Artery/Lesion type: unspecified vessel or lesion type [place] vs. transplanted heart: [place] heart Associated angina: without angina Qualified Code(s): I25.10 - Atherosclerotic heart disease of [place] coronary artery without angina pectoris Is this a current diagnosis for this admission?: Yes (8) HLD (hyperlipidemia) Qualifiers: Hyperlipidemia type: pure hypercholesterolemia Qualified Code(s): E78.00 - Pure hypercholesterolemia, unspecified; E78.0 - Pure hypercholesterolemia Is this a current diagnosis for this admission?: Yes (9) S/P CABG (coronary artery bypass graft) Is this a current diagnosis for this admission?: Yes - Time Time Spent with patient: 25-34 minutes Medications reviewed and adjusted accordingly: Yes Anticipated discharge: Home with Homehealth, SNF Within: Other - Inpatient Certification Based on my medical assessment, after consideration of the patient's comorbidities, presenting symptoms, or acuity I expect that the services needed warrant INPATIENT care.: Yes I certify that my determination is in accordance with my understanding of Medicare's requirements for reasonable and necessary INPATIENT services [42 CFR 412.3e].: Yes Medical Necessity: Need Close Monitoring Due to Risk of Patient Decompensation, Need For IV Fluids, Need For Continuous Telemetry Monitoring, Need for Nebulizer Therapy and Monitoring of Response, Need for IV Antibiotics, Risk of Complication if Not Cared For in Hospital Post Hospital Care: D/C Visual Educator Documentation, D/C or Transfer Summary - Plan Summary Plan Summary: Continue antibiotic coverage. Follow up on sputum culture findings. Overall prognosis remain guarded due to his morbidities. I had extensive discussion with his sister, Mrs. Marcelino during my bedside evaluation today. Patient remain on full code status.
[2018-11-19] MEDS: RINGERS SOLUTION,LACTATED 1,000 ML IV PRN (20:10)
[2018-11-19] MEDS: ATORVASTATIN CALCIUM 10 MG TABLET NG SCH (22:27)
[2018-11-19] MEDS: DOCUSATE SODIUM 100 MG/10 ML UDC NG SCH (22:30)
[2018-11-20] MEDS: AZTREONAM 1 GM in DEXTROSE 5%-WATER 50 ML IV SCH ×3 (02:00→17:21)
[2018-11-20] MEDS: DILTIAZEM HCL 60 MG TABLET GT SCH ×4 (03:25→21:10)
[2018-11-20 04:07] LABS: ABSOLUTE BASOPHILS # (AUTO) 0.1 10^3/uL (0.0-0.2); ABSOLUTE EOSINOPHILS # (AUTO) 0.1 10^3/uL (0.0-0.6); ABSOLUTE LYMPHOCYTES (AUTO) 1.6 10^3/uL (0.5-4.7); ABSOLUTE MONOCYTES (AUTO) 1.1 10^3/uL (0.1-1.4); ABSOLUTE NEUT (AUTO) 8.8 10^3/uL (1.7-8.2); BASOPHILS % (AUTO) 0.7 % (0-2); EOSINOPHILS % (AUTO) 0.6 % (0-6); HEMATOCRIT 38.6 % (37.9-51.0); HEMOGLOBIN 13.1 g/dL (13.5-17.0); LYMPHOCYTES % (AUTO) 13.9 % (13-45); MEAN CORPUSCULAR HEMOGLOBIN 31.1 pg (27.0-33.4); MEAN CORPUSCULAR HGB CONC 33.8 g/dL (32.0-36.0); MEAN CORPUSCULAR VOLUME 92 fl (80-97); MONOCYTES % (AUTO) 9.5 % (3-13); PLATELET COUNT 144 10^3/uL (150-450); RED CELL DISTRIBUTION WIDTH 14.1 % (11.5-14.0); SEGMENTED NEUTROPHILS % (AUTO) 75.3 % (42-78); TOTAL CELLS COUNTED % (AUTO) 100 %; WHITE BLOOD COUNT 11.6 10^3/uL (4.0-10.5)
[2018-11-20 04:23] LABS: ALANINE AMINOTRANSFERASE 22 U/L (21-72); ALBUMIN 3.4 g/dL (3.5-5.0); ALKALINE PHOSPHATASE 45 U/L (38-126); ANION GAP 6 (5-19); ASPARTATE AMINO TRANSFERASE 36 U/L (17-59); BILIRUBIN,DIRECT 0.3 mg/dL (0.0-0.4); BILIRUBIN,TOTAL 0.5 mg/dL (0.2-1.3); BLOOD UREA NITROGEN 20 mg/dL (7-20); CALCIUM 8.5 mg/dL (8.4-10.2); CARBON DIOXIDE 27 mmol/L (22-30); CHLORIDE 108 mmol/L (98-107); GLUCOSE 115 mg/dL (75-110); POTASSIUM 4.4 mmol/L (3.6-5.0); TOTAL PROTEIN 6.1 g/dL (6.3-8.2)
[2018-11-20] MEDS: VANCOMYCIN HCL 1,000 MG in DEXTROSE 5%-WATER 250 ML IV SCH ×2 (06:19→18:29)
[2018-11-20] MEDS: RINGERS SOLUTION,LACTATED 1,000 ML IV PRN ×2 (06:19→20:17)
--- NOTE | 2018-11-20 06:51 | RADIOLOGY REPORT (SQ) ---
EXAM DESCRIPTION: XR CHEST 1 VIEW COMPLETED DATE/TME: 11/20/2018 06:00 CLINICAL HISTORY: Respiratory Distress. 68 years Male, resp failue COMPARISON: One day prior. NUMBER OF VIEWS/TECHNIQUE: 1/AP FINDINGS: Mild interstitial markings.Adequate appearing endotracheal tube. Adequate appearing enteric tube with tip at the left upper abdominal quadrant. Sternotomy. Mildly enlarged cardiac silhouette. Atherosclerotic vascular disease. Cardiac/mediastinal hardware/clips. No pneumothorax. Stable bony thorax. IMPRESSION: No significant change.
[2018-11-20 07:01] LABS: ARTERIAL BLOOD BASE EXCESS 2.5 mmol/L; ARTERIAL BLOOD H2CO3 1.22 mmol/L (1.05-1.35); ARTERIAL BLOOD HCO3 26.8 mmol/L (20-24); ARTERIAL BLOOD O2 SATURATION 96.4 % (94-98); ARTERIAL BLOOD PCO2 40.5 mmHg (35-45); ARTERIAL BLOOD PH 7.44 (7.35-7.45); ARTERIAL BLOOD PO2 81.7 mmHg (80-100); ARTERIAL BLOOD TOTAL CO2 28.1 mmol/L (23-27)
[2018-11-20 07:03] LABS: ARTERIAL BLOOD FIO2 35%
[2018-11-20] MEDS: IPRATROPIUM/ALBUTEROL 0.5-2.5 MG/3 ML AMPUL NEB PRN ×2 (08:03→20:33)
[2018-11-20] MEDS: ACETYLCYSTEINE 20% SOLN 800 MG/4 ML VIAL.NEB NEB SCH ×2 (08:03→20:33)
--- NOTE | 2018-11-20 08:04 | PDOC PROGRESS REPORT ---
Subjective Progress Note for:: 11/20/18 Subjective:: Patient's sputum culture grew MRSA. No reported fever. Remain on triple antibiotic coverage. Tolerating tube feeding. Reason For Visit: ACUTE RESPIRATORY FAILURE Physical Exam Vital Signs: Temp Pulse Resp BP Pulse Ox 98.4 F 75 16 118/64 98 11/20/18 06:08 11/19/18 20:02 11/20/18 06:08 11/20/18 06:08 11/20/18 06:08 Intake & Output 11/19/18 11/20/18 11/21/18 06:59 06:59 06:59 Intake Total 3163 1673 Output Total 2080 3400 Balance 1083 -1727 Weight 74.7 kg 74 kg Physical Exam: Remain intubated and sedated. ET and OG tubes insitu. Head exam: PRESENT: atraumatic, normocephalic Eye exam: PRESENT: conjunctiva pink, EOMI, PERRLA. ABSENT: pallor, scleral icterus Ear exam: PRESENT: normal external ear exam Respiratory exam: PRESENT: clear to auscultation nelson, decreased breath sounds Cardiovascular exam: PRESENT: Irregular rhythm. ABSENT: diastolic murmur, rubs, systolic murmur GI/Abdominal exam: PRESENT: normal bowel sounds, soft Extremities exam: ABSENT: pedal edema Neurological exam: PRESENT: altered - sedated Skin exam: PRESENT: dry, warm Results Laboratory Results: 11/20/18 03:44 11/20/18 03:44 11/19/18 11/20/18 11/20/18 14:12 03:44 03:44 WBC 11.6 H RBC 4.20 L Hgb 13.1 L Hct 38.6 MCV 92 MCH 31.1 MCHC 33.8 RDW 14.1 H Plt Count 144 L Seg Neutrophils % 75.3 Lymphocytes % 13.9 Monocytes % 9.5 Eosinophils % 0.6 Basophils % 0.7 Absolute Neutrophils 8.8 H Absolute Lymphocytes 1.6 Absolute Monocytes 1.1 Absolute Eosinophils 0.1 Absolute Basophils 0.1 Carbonic Acid 0.93 L HCO3/H2CO3 Ratio 26:1 ABG pH 7.53 H ABG pCO2 30.9 L ABG pO2 82.8 ABG HCO3 25.0 H ABG O2 Saturation 97.2 ABG Base Excess 2.9 FiO2 35% Sodium 141.0 Potassium 4.4 Chloride 108 H Carbon Dioxide 27 Anion Gap 6 BUN 20 Creatinine 0.94 Est GFR ( Amer) > 60 Est GFR (Non-Af Amer) > 60 Glucose 115 H Calcium 8.5 Magnesium 2.3 Total Bilirubin 0.5 AST 36 ALT 22 Alkaline Phosphatase 45 Total Protein 6.1 L Albumin 3.4 L 11/20/18 11/20/18 06:15 06:45 WBC RBC Hgb Hct MCV MCH MCHC RDW Plt Count Seg Neutrophils % Lymphocytes % Monocytes % Eosinophils % Basophils % Absolute Neutrophils Absolute Lymphocytes Absolute Monocytes Absolute Eosinophils Absolute Basophils Carbonic Acid Cancelled 1.22 HCO3/H2CO3 Ratio Cancelled 21:1 ABG pH Cancelled 7.44 ABG pCO2 Cancelled 40.5 ABG pO2 Cancelled 81.7 ABG HCO3 Cancelled 26.8 H ABG O2 Saturation Cancelled 96.4 ABG Base Excess Cancelled 2.5 FiO2 Cancelled 35% Sodium Potassium Chloride Carbon Dioxide Anion Gap BUN Creatinine Est GFR ( Amer) Est GFR (Non-Af Amer) Glucose Calcium Magnesium Total Bilirubin AST ALT Alkaline Phosphatase Total Protein Albumin 11/18/18 09:53 Tracheal Aspirate Gram Stain - Final 11/18/18 09:53 Tracheal Aspirate Sputum Culture - Final Mrsa (Meth Resis Staph Aureus) Normal Gris Absent 11/17/18 04:00 Tracheal Aspirate Gram Stain - Final 11/17/18 04:00 Tracheal Aspirate Sputum Culture - Final Mrsa (Meth Resis Staph Aureus) Normal Gris 11/16/18 11/17/18 11/17/18 21:30 00:08 00:08 Creatine Kinase 43 L CK-MB (CK-2) Troponin I 0.016 NT-Pro-B Natriuret Pep 2560 H 2850 H 11/17/18 11/17/18 11/17/18 00:08 05:51 05:51 Creatine Kinase 39 L CK-MB (CK-2) 1.69 2.13 Troponin I 0.055 0.144 NT-Pro-B Natriuret Pep 11/17/18 11/17/18 12:13 12:13 Creatine Kinase 41 L CK-MB (CK-2) 2.62 Troponin I 0.103 NT-Pro-B Natriuret Pep Impressions: Head CT 11/16/18 22:30 IMPRESSION: Atrophy with small vessel ischemic change. Negative for acute intracranial abnormality TECHNICAL DOCUMENTATION: Quality ID # 436: Final reports with documentation of one or more dose reduction techniques (e.g., Automated exposure control, adjustment of the mA and/or kV according to patient size, use of iterative reconstruction technique) copyright 2010 [employer]- All Rights Reserved KUB X-Ray 11/16/18 23:43 IMPRESSION: Tip of the enteric tube likely in the proximal stomach. copyright 2010 [employer]- All Rights Reserved Chest X-Ray 11/20/18 06:00 IMPRESSION: No significant change. Assessment & Plan - Diagnosis (1) Acute respiratory failure with hypercapnia Is this a current diagnosis for this admission?: Yes (2) MRSA (methicillin resistant staphylococcus aureus) pneumonia Qualifiers: Laterality: left Is this a current diagnosis for this admission?: Yes Plan: Continue IV Vancomycin coverage. Follow up on blood culture findings, to date no growth. (3) Chronic obstructive pulmonary disease with (acute) exacerbation Is this a current diagnosis for this admission?: Yes (4) Chronic atrial fibrillation with rapid ventricular response Is this a current diagnosis for this admission?: Yes (5) Gastric stress ulcer Is this a current diagnosis for this admission?: Yes (6) HTN (hypertension) Qualifiers: Hypertension type: essential hypertension Qualified Code(s): I10 - Essential (primary) hypertension Is this a current diagnosis for this admission?: Yes (7) CAD (coronary artery disease) Qualifiers: Coronary Disease-Associated Artery/Lesion type: unspecified vessel or lesion type [place] vs. transplanted heart: [place] heart Associated angina: without angina Qualified Code(s): I25.10 - Atherosclerotic heart disease of [place] coronary artery without angina pectoris Is this a current diagnosis for this admission?: Yes (8) HLD (hyperlipidemia) Qualifiers: Hyperlipidemia type: pure hypercholesterolemia Qualified Code(s): E78.00 - Pure hypercholesterolemia, unspecified; E78.0 - Pure hypercholesterolemia Is this a current diagnosis for this admission?: Yes (9) S/P CABG (coronary artery bypass graft) Is this a current diagnosis for this admission?: Yes - Time Time Spent with patient: 25-34 minutes Medications reviewed and adjusted accordingly: Yes Anticipated discharge: Home with Homehealth Within: Other - Inpatient Certification Based on my medical assessment, after consideration of the patient's comorbidities, presenting symptoms, or acuity I expect that the services needed warrant INPATIENT care.: Yes I certify that my determination is in accordance with my understanding of Medicare's requirements for reasonable and necessary INPATIENT services [42 CFR 412.3e].: Yes Medical Necessity: Significant Comorbidiites Make Outpatient Treatment Too Risky, Need Close Monitoring Due to Risk of Patient Decompensation, Need For IV Fluids, Need For Continuous Telemetry Monitoring, Need for Nebulizer Therapy and Monitoring of Response, Need for IV Antibiotics, Risk of Complication if Not Cared For in Hospital Post Hospital Care: D/C Publications Inspector Documentation - Plan Summary Plan Summary: Continue current medication management. Follow up on blood culture findings.
[2018-11-20] MEDS: MIDAZOLAM HCL 50 MG/100 ML RTUINJ IV PRN ×2 (08:59→17:21)
[2018-11-20] MEDS: PANTOPRAZOLE SODIUM 40 MG VIAL IV SCH ×2 (09:00→21:11)
[2018-11-20] MEDS: DIGOXIN 0.25 MG TABLET NG SCH (09:08)
[2018-11-20] MEDS: LEVOFLOXACIN 500 MG/D5W RTU 500 MG/100 ML RTUPB IV SCH (09:08)
[2018-11-20] MEDS: ENOXAPARIN SODIUM INJ 40 MG/0.4 ML DISP.SYRIN SUBCUT SCH (09:22)
[2018-11-20] MEDS: DOCUSATE SODIUM 100 MG/10 ML UDC NG SCH ×2 (09:22→21:10)
[2018-11-20] MEDS ORDERED: NA PHOS,M-B/NA PHOS,DI-BA (ADULT) 133 ML ENEMA PR ONE (10:00)
[2018-11-20 14:36] LABS: ARTERIAL BLOOD BASE EXCESS 2.9 mmol/L; ARTERIAL BLOOD H2CO3 1.12 mmol/L (1.05-1.35); ARTERIAL BLOOD HCO3 26.5 mmol/L (20-24); ARTERIAL BLOOD O2 SATURATION 94.7 % (94-98); ARTERIAL BLOOD PCO2 37.2 mmHg (35-45); ARTERIAL BLOOD PH 7.47 (7.35-7.45); ARTERIAL BLOOD PO2 68.3 mmHg (80-100); ARTERIAL BLOOD TOTAL CO2 27.6 mmol/L (23-27)
[2018-11-20 14:38] LABS: ARTERIAL BLOOD FIO2 35%
[2018-11-20] MEDS: PROPOFOL 1,000 MG/100 ML INFUS..BTL IV PRN (15:40)
[2018-11-20] MEDS: ATORVASTATIN CALCIUM 10 MG TABLET NG SCH (21:10)
[2018-11-21] MEDS: MIDAZOLAM HCL 50 MG/100 ML RTUINJ IV PRN ×3 (00:31→19:22)
[2018-11-21] MEDS: AZTREONAM 1 GM in DEXTROSE 5%-WATER 50 ML IV SCH ×3 (02:01→17:22)
[2018-11-21] MEDS: DILTIAZEM HCL 60 MG TABLET GT SCH ×4 (02:01→22:03)
[2018-11-21 05:48] LABS: ABSOLUTE BASOPHILS # (AUTO) 0.1 10^3/uL (0.0-0.2); ABSOLUTE EOSINOPHILS # (AUTO) 0.1 10^3/uL (0.0-0.6); ABSOLUTE LYMPHOCYTES (AUTO) 1.4 10^3/uL (0.5-4.7); ABSOLUTE MONOCYTES (AUTO) 0.9 10^3/uL (0.1-1.4); BASOPHILS % (AUTO) 0.9 % (0-2); EOSINOPHILS % (AUTO) 1.4 % (0-6); HEMOGLOBIN 13.1 g/dL (13.5-17.0); LYMPHOCYTES % (AUTO) 13.3 % (13-45); MEAN CORPUSCULAR HEMOGLOBIN 31.1 pg (27.0-33.4); MEAN CORPUSCULAR HGB CONC 33.6 g/dL (32.0-36.0); MEAN CORPUSCULAR VOLUME 92 fl (80-97); MONOCYTES % (AUTO) 8.3 % (3-13); PLATELET COUNT 137 10^3/uL (150-450); RED BLOOD COUNT 4.22 10^6/uL (4.35-5.55); RED CELL DISTRIBUTION WIDTH 13.8 % (11.5-14.0); SEGMENTED NEUTROPHILS % (AUTO) 76.1 % (42-78); TOTAL CELLS COUNTED % (AUTO) 100 %; WHITE BLOOD COUNT 10.6 10^3/uL (4.0-10.5)
[2018-11-21 05:57] LABS: INTERNATIONAL RATION (INR) 1.12
[2018-11-21 05:58] LABS: PARTIAL THROMBOPLASTIN TIME 30.3 SEC (23.5-35.8)
[2018-11-21 06:10] LABS: ARTERIAL BLOOD BASE EXCESS 1.3 mmol/L; ARTERIAL BLOOD H2CO3 1.04 mmol/L (1.05-1.35); ARTERIAL BLOOD HCO3 24.5 mmol/L (20-24); ARTERIAL BLOOD PCO2 34.4 mmHg (35-45); ARTERIAL BLOOD PH 7.47 (7.35-7.45); ARTERIAL BLOOD PO2 84.4 mmHg (80-100); ARTERIAL BLOOD TOTAL CO2 25.5 mmol/L (23-27)
[2018-11-21 06:13] LABS: ANION GAP 8 (5-19); BLOOD UREA NITROGEN 20 mg/dL (7-20); CALCIUM 8.7 mg/dL (8.4-10.2); CARBON DIOXIDE 24 mmol/L (22-30); CHLORIDE 109 mmol/L (98-107); GLUCOSE 115 mg/dL (75-110); POTASSIUM 4.5 mmol/L (3.6-5.0); SODIUM 141.1 mmol/L (137-145)
[2018-11-21 06:15] LABS: VANCOMYCIN,TROUGH 13.1 ug/mL (5.0-20.0)
[2018-11-21 06:16] LABS: ARTERIAL BLOOD FIO2 35%
[2018-11-21] MEDS: VANCOMYCIN HCL 1,000 MG in DEXTROSE 5%-WATER 250 ML IV SCH (06:39)
--- NOTE | 2018-11-21 07:23 | RADIOLOGY REPORT (SQ) ---
EXAM DESCRIPTION: XR CHEST 1 VIEW COMPLETED DATE/TME: 11/21/2018 06:00 CLINICAL HISTORY: Respiratory Distress. 68 years Male, pna/resp failure COMPARISON: One day prior. NUMBER OF VIEWS/TECHNIQUE: 1/AP FINDINGS: Moderate mixed airspace and interstitial opacities. Adequate appearing endotracheal tube. Adequate appearing enteric tube with tip at the left upper abdominal quadrant. Sternotomy. Atherosclerotic vascular disease. Moderately enlarged cardiac silhouette. No pneumothorax. Stable bony thorax. IMPRESSION: No significant change.
[2018-11-21] MEDS: ACETYLCYSTEINE 20% SOLN 800 MG/4 ML VIAL.NEB NEB SCH ×2 (08:30→19:22)
[2018-11-21] MEDS: IPRATROPIUM/ALBUTEROL 0.5-2.5 MG/3 ML AMPUL NEB PRN (08:30)
[2018-11-21] MEDS: DOCUSATE SODIUM 100 MG/10 ML UDC NG SCH ×2 (11:16→22:04)
[2018-11-21] MEDS: DIGOXIN 0.25 MG TABLET NG SCH (11:17)
[2018-11-21] MEDS: LEVOFLOXACIN 500 MG/D5W RTU 500 MG/100 ML RTUPB IV SCH (11:17)
[2018-11-21] MEDS: ENOXAPARIN SODIUM INJ 40 MG/0.4 ML DISP.SYRIN SUBCUT SCH (11:17)
[2018-11-21] MEDS: PANTOPRAZOLE SODIUM 40 MG VIAL IV SCH ×2 (11:17→22:02)
[2018-11-21] MEDS: VANCOMYCIN HCL 750 MG in DEXTROSE 5%-WATER 250 ML IV SCH ×2 (15:18→22:03)
--- NOTE | 2018-11-21 16:00 | PDOC PROGRESS REPORT ---
Subjective Progress Note for:: 11/21/18 Subjective:: Patient remain intubated and vent supported. No reported fever. Remain on triple antibiotic coverage. Tolerating tube feeding. Reason For Visit: ACUTE RESPIRATORY FAILURE Physical Exam Vital Signs: Temp Pulse Resp BP Pulse Ox 97.7 F 67 14 95/54 L 91 L 11/21/18 14:00 11/21/18 12:00 11/21/18 14:00 11/21/18 13:06 11/21/18 15:41 Intake & Output 11/20/18 11/21/18 11/22/18 06:59 06:59 06:59 Intake Total 1823 2312 Output Total 3400 2070 1075 Balance -8663 -0982 -1079 Weight 74 kg 76.4 kg Physical Exam: Remain intubated and sedated. ET and OG tubes insitu. Head exam: PRESENT: atraumatic, normocephalic Eye exam: PRESENT: conjunctiva pink, EOMI, PERRLA. ABSENT: pallor, scleral icterus Ear exam: PRESENT: normal external ear exam Respiratory exam: PRESENT: clear to auscultation nelson, decreased breath sounds Cardiovascular exam: PRESENT: Irregular rhythm. ABSENT: diastolic murmur, rubs, systolic murmur GI/Abdominal exam: PRESENT: normal bowel sounds, soft Extremities exam: ABSENT: pedal edema Neurological exam: PRESENT: altered - sedated Skin exam: PRESENT: dry, warm Results Laboratory Results: 11/21/18 05:30 11/21/18 05:30 11/21/18 11/21/18 11/21/18 05:30 05:30 05:55 WBC 10.6 H RBC 4.22 L Hgb 13.1 L Hct 39.0 MCV 92 MCH 31.1 MCHC 33.6 RDW 13.8 Plt Count 137 L Seg Neutrophils % 76.1 Lymphocytes % 13.3 Monocytes % 8.3 Eosinophils % 1.4 Basophils % 0.9 Absolute Neutrophils 8.0 Absolute Lymphocytes 1.4 Absolute Monocytes 0.9 Absolute Eosinophils 0.1 Absolute Basophils 0.1 Carbonic Acid 1.04 L HCO3/H2CO3 Ratio 23:1 ABG pH 7.47 H ABG pCO2 34.4 L ABG pO2 84.4 ABG HCO3 24.5 H ABG O2 Saturation 97.0 ABG Base Excess 1.3 FiO2 35% Sodium 141.1 Potassium 4.5 Chloride 109 H Carbon Dioxide 24 Anion Gap 8 BUN 20 Creatinine 0.86 Est GFR ( Amer) > 60 Est GFR (Non-Af Amer) > 60 Glucose 115 H Calcium 8.7 Magnesium 2.3 11/16/18 11/17/18 11/17/18 21:30 00:08 00:08 Creatine Kinase 43 L CK-MB (CK-2) Troponin I 0.016 NT-Pro-B Natriuret Pep 2560 H 2850 H 11/17/18 11/17/18 11/17/18 00:08 05:51 05:51 Creatine Kinase 39 L CK-MB (CK-2) 1.69 2.13 Troponin I 0.055 0.144 NT-Pro-B Natriuret Pep 11/17/18 11/17/18 12:13 12:13 Creatine Kinase 41 L CK-MB (CK-2) 2.62 Troponin I 0.103 NT-Pro-B Natriuret Pep Impressions: Head CT 11/16/18 22:30 IMPRESSION: Atrophy with small vessel ischemic change. Negative for acute intracranial abnormality TECHNICAL DOCUMENTATION: Quality ID # 436: Final reports with documentation of one or more dose reduction techniques (e.g., Automated exposure control, adjustment of the mA and/or kV according to patient size, use of iterative reconstruction technique) copyright 2010 [email or web address]- All Rights Reserved KUB X-Ray 11/16/18 23:43 IMPRESSION: Tip of the enteric tube likely in the proximal stomach. copyright 2010 [email or web address]- All Rights Reserved Chest X-Ray 11/21/18 06:00 IMPRESSION: No significant change. Assessment & Plan - Diagnosis (1) Acute respiratory failure with hypercapnia Is this a current diagnosis for this admission?: Yes (2) MRSA (methicillin resistant staphylococcus aureus) pneumonia Qualifiers: Laterality: left Is this a current diagnosis for this admission?: Yes (3) Chronic obstructive pulmonary disease with (acute) exacerbation Is this a current diagnosis for this admission?: Yes (4) Chronic atrial fibrillation with rapid ventricular response Is this a current diagnosis for this admission?: Yes (5) Gastric stress ulcer Is this a current diagnosis for this admission?: Yes (6) HTN (hypertension) Qualifiers: Hypertension type: essential hypertension Qualified Code(s): I10 - Essential (primary) hypertension Is this a current diagnosis for this admission?: Yes (7) CAD (coronary artery disease) Qualifiers: Coronary Disease-Associated Artery/Lesion type: unspecified vessel or lesion type [place] vs. transplanted heart: [place] heart Associated angina: without angina Qualified Code(s): I25.10 - Atherosclerotic heart disease of [place] cor onary artery without angina pectoris Is this a current diagnosis for this admission?: Yes (8) HLD (hyperlipidemia) Qualifiers: Hyperlipidemia type: pure hypercholesterolemia Qualified Code(s): E78.00 - Pure hypercholesterolemia, unspecified; E78.0 - Pure hypercholesterolemia Is this a current diagnosis for this admission?: Yes (9) S/P CABG (coronary artery bypass graft) Is this a current diagnosis for this admission?: Yes - Time Time Spent with patient: 25-34 minutes Medications reviewed and adjusted accordingly: Yes Anticipated discharge: Home with Homehealth, SNF Within: Other - Inpatient Certification Based on my medical assessment, after consideration of the patient's nikhil rbidities, presenting symptoms, or acuity I expect that the services needed warrant INPATIENT care.: Yes I certify that my determination is in accordance with my understanding of Medicare's requirements for reasonable and necessary INPATIENT services [42 CFR 412.3e].: Yes Medical Necessity: Need Close Monitoring Due to Risk of Patient Decompensation, Need For IV Fluids, Need For Continuous Telemetry Monitoring, Need for Nebulizer Therapy and Monitoring of Response, Need for IV Antibiotics, Risk of Complication if Not Cared For in Hospital, Risk of Diagnosis Which Will Require Inpatient Eval/Care/Monitoring Post Hospital Care: D/C Brokerage Clerk Documentation - Plan Summary Plan Summary: Continue current medication management. Consider D/C Aztreonam and Levofloxacin if blood culture is no growth x 5 days.
[2018-11-21] MEDS: PROPOFOL 1,000 MG/100 ML INFUS..BTL IV PRN (17:22)
[2018-11-21] MEDS: ATORVASTATIN CALCIUM 10 MG TABLET NG SCH (22:03)
[2018-11-22] MEDS: AZTREONAM 1 GM in DEXTROSE 5%-WATER 50 ML IV SCH ×3 (01:02→17:57)
[2018-11-22] MEDS: PROPOFOL 1,000 MG/100 ML INFUS..BTL IV PRN ×4 (01:18→20:20)
[2018-11-22] MEDS: MIDAZOLAM HCL 50 MG/100 ML RTUINJ IV PRN ×3 (02:05→20:20)
[2018-11-22] MEDS: DILTIAZEM HCL 60 MG TABLET GT SCH ×4 (02:07→21:26)
[2018-11-22 04:02] LABS: ABSOLUTE BASOPHILS # (AUTO) 0.1 10^3/uL (0.0-0.2); ABSOLUTE EOSINOPHILS # (AUTO) 0.2 10^3/uL (0.0-0.6); ABSOLUTE LYMPHOCYTES (AUTO) 1.2 10^3/uL (0.5-4.7); ABSOLUTE MONOCYTES (AUTO) 0.8 10^3/uL (0.1-1.4); ABSOLUTE NEUT (AUTO) 9.1 10^3/uL (1.7-8.2); BASOPHILS % (AUTO) 0.6 % (0-2); HEMATOCRIT 38.8 % (37.9-51.0); HEMOGLOBIN 13.2 g/dL (13.5-17.0); LYMPHOCYTES % (AUTO) 10.4 % (13-45); MEAN CORPUSCULAR HGB CONC 33.9 g/dL (32.0-36.0); MEAN CORPUSCULAR VOLUME 91 fl (80-97); MONOCYTES % (AUTO) 7.2 % (3-13); PLATELET COUNT 157 10^3/uL (150-450); RED BLOOD COUNT 4.26 10^6/uL (4.35-5.55); RED CELL DISTRIBUTION WIDTH 13.6 % (11.5-14.0); SEGMENTED NEUTROPHILS % (AUTO) 79.8 % (42-78); TOTAL CELLS COUNTED % (AUTO) 100 %; WHITE BLOOD COUNT 11.5 10^3/uL (4.0-10.5)
[2018-11-22 04:04] LABS: ARTERIAL BLOOD BASE EXCESS 1.2 mmol/L; ARTERIAL BLOOD FIO2 35%; ARTERIAL BLOOD H2CO3 1.19 mmol/L (1.05-1.35); ARTERIAL BLOOD HCO3 25.5 mmol/L (20-24); ARTERIAL BLOOD O2 SATURATION 97.7 % (94-98); ARTERIAL BLOOD PCO2 39.4 mmHg (35-45); ARTERIAL BLOOD PH 7.43 (7.35-7.45); ARTERIAL BLOOD PO2 99.3 mmHg (80-100); ARTERIAL BLOOD TOTAL CO2 26.7 mmol/L (23-27)
[2018-11-22 04:16] LABS: ANION GAP 6 (5-19); BLOOD UREA NITROGEN 22 mg/dL (7-20); CALCIUM 8.7 mg/dL (8.4-10.2); CARBON DIOXIDE 26 mmol/L (22-30); CHLORIDE 110 mmol/L (98-107); GLUCOSE 115 mg/dL (75-110); POTASSIUM 4.6 mmol/L (3.6-5.0); SODIUM 141.7 mmol/L (137-145)
[2018-11-22] MEDS: VANCOMYCIN HCL 750 MG in DEXTROSE 5%-WATER 250 ML IV SCH ×3 (05:03→21:25)
--- NOTE | 2018-11-22 07:13 | RADIOLOGY REPORT (SQ) ---
EXAM DESCRIPTION: XR CHEST 1 VIEW COMPLETED DATE/TME: 11/22/2018 06:00 CLINICAL HISTORY: Respiratory Distress. 68 years Male, resp failure/pna COMPARISON: One day prior. NUMBER OF VIEWS/TECHNIQUE: 1/AP FINDINGS: Small left basilar opacity, mild interstitial markings, small hazy opacity-effusion of the right costophrenic angle. Likely lead related artifact at the right lung apex; cannot exclude a trace right apical pneumothorax. Adequate appearing endotracheal tube. Adequate appearing enteric tube with tip at the left upper abdominal quadrant. Sternotomy. Atherosclerotic vascular disease. Normal cardiac silhouette size. Cardiac/mediastinal hardware/clips. Stable bony thorax. IMPRESSION: Possible trace right apical pneumothorax. Else, stable.
[2018-11-22] MEDS: IPRATROPIUM/ALBUTEROL 0.5-2.5 MG/3 ML AMPUL NEB PRN ×2 (08:25→20:45)
[2018-11-22] MEDS: ACETYLCYSTEINE 20% SOLN 800 MG/4 ML VIAL.NEB NEB SCH ×2 (08:26→20:45)
[2018-11-22] MEDS: DIGOXIN 0.25 MG TABLET NG SCH (09:54)
[2018-11-22] MEDS: PANTOPRAZOLE SODIUM 40 MG VIAL IV SCH ×2 (09:54→21:25)
[2018-11-22] MEDS: ENOXAPARIN SODIUM INJ 40 MG/0.4 ML DISP.SYRIN SUBCUT SCH (09:55)
[2018-11-22] MEDS: LEVOFLOXACIN 500 MG/D5W RTU 500 MG/100 ML RTUPB IV SCH (09:56)
[2018-11-22] MEDS: RINGERS SOLUTION,LACTATED 1,000 ML IV PRN (09:57)
--- NOTE | 2018-11-22 11:09 | PDOC PROGRESS REPORT ---
Subjective Progress Note for:: 11/22/18 Subjective:: Patient is currently on respiratory support Patient is tolerating the tube feeding Discussed with the ICU nurses no other concern Reason For Visit: ACUTE RESPIRATORY FAILURE Physical Exam Vital Signs: Temp Pulse Resp BP Pulse Ox 98.6 F 69 19 119/61 95 11/22/18 10:00 11/22/18 10:00 11/22/18 10:00 11/22/18 10:00 11/22/18 10:00 Intake & Output 11/21/18 11/22/18 11/23/18 06:59 06:59 06:59 Intake Total 3312 1705 796 Output Total 3750 4400 490 Balance -438 -3267 306 Weight 76.4 kg 73.7 kg Physical Exam: Currently intubated General appearance: PRESENT: no acute distress Eye exam: PRESENT: PERRLA Respiratory exam: PRESENT: clear to auscultation nelson Cardiovascular exam: PRESENT: +S1, +S2 GI/Abdominal exam: PRESENT: normal bowel sounds, soft Extremities exam: ABSENT: pedal edema Results Laboratory Results: 11/22/18 03:35 11/22/18 03:35 11/22/18 11/22/18 11/22/18 03:35 03:35 03:55 WBC 11.5 H RBC 4.26 L Hgb 13.2 L Hct 38.8 MCV 91 MCH 31.0 MCHC 33.9 RDW 13.6 Plt Count 157 Seg Neutrophils % 79.8 H Lymphocytes % 10.4 L Monocytes % 7.2 Eosinophils % 2.0 Basophils % 0.6 Absolute Neutrophils 9.1 H Absolute Lymphocytes 1.2 Absolute Monocytes 0.8 Absolute Eosinophils 0.2 Absolute Basophils 0.1 Carbonic Acid 1.19 HCO3/H2CO3 Ratio 21:1 ABG pH 7.43 ABG pCO2 39.4 ABG pO2 99.3 ABG HCO3 25.5 H ABG O2 Saturation 97.7 ABG Base Excess 1.2 FiO2 35% Sodium 141.7 Potassium 4.6 Chloride 110 H Carbon Dioxide 26 Anion Gap 6 BUN 22 H Creatinine 0.91 Est GFR ( Amer) > 60 Est GFR (Non-Af Amer) > 60 Glucose 115 H Calcium 8.7 Magnesium 2.4 H 11/16/18 22:30 Blood Blood Culture - Final NO GROWTH IN 5 DAYS 11/16/18 21:30 Blood Blood Culture - Final NO GROWTH IN 5 DAYS 11/16/18 11/17/18 11/17/18 21:30 00:08 00:08 Creatine Kinase 43 L CK-MB (CK-2) Troponin I 0.016 NT-Pro-B Natriuret Pep 2560 H 2850 H 11/17/18 11/17/18 11/17/18 00:08 05:51 05:51 Creatine Kinase 39 L CK-MB (CK-2) 1.69 2.13 Troponin I 0.055 0.144 NT-Pro-B Natriuret Pep 11/17/18 11/17/18 12:13 12:13 Creatine Kinase 41 L CK-MB (CK-2) 2.62 Troponin I 0.103 NT-Pro-B Natriuret Pep Impressions: Head CT 11/16/18 22:30 IMPRESSION: Atrophy with small vessel ischemic change. Negative for acute intracranial abnormality TECHNICAL DOCUMENTATION: Quality ID # 436: Final reports with documentation of one or more dose reduction techniques (e.g., Automated exposure control, adjustment of the mA and/or kV according to patient size, use of iterative reconstruction technique) copyright 2010 [employer]- All Rights Reserved KUB X-Ray 11/16/18 23:43 IMPRESSION: Tip of the enteric tube likely in the proximal stomach. copyright 2010 [employer]- All Rights Reserved Chest X-Ray 11/22/18 06:00 IMPRESSION: Possible trace right apical pneumothorax. Else, stable. Assessment & Plan - Diagnosis (1) Acute respiratory failure with hypercapnia Is this a current diagnosis for this admission?: Yes (2) MRSA (methicillin resistant staphylococcus aureus) pneumonia Qualifiers: Laterality: left Is this a current diagnosis for this admission?: Yes (3) Chronic obstructive pulmonary disease with (acute) exacerbation Is this a current diagnosis for this admission?: Yes (4) HTN (hypertension) Qualifiers: Hypertension type: essential hypertension Qualified Code(s): I10 - [place] (primary) hypertension Is this a current diagnosis for this admission?: Yes (5) PAD (peripheral artery disease) Is this a current diagnosis for this admission?: Yes (6) S/P CABG (coronary artery bypass graft) Is this a current diagnosis for this admission?: Yes - Time Time Spent with patient: 25-34 minutes Total Critical Time (Minutes): 25 Medications reviewed and adjusted accordingly: Yes Anticipated discharge: Other Within: Other - Plan Summary Plan Summary: Continues IV antibiotics
[2018-11-22] MEDS: DOCUSATE SODIUM 100 MG/10 ML UDC NG SCH ×2 (16:51→21:26)
[2018-11-22] MEDS: ATORVASTATIN CALCIUM 10 MG TABLET NG SCH (21:26)
[2018-11-23] MEDS: RINGERS SOLUTION,LACTATED 1,000 ML IV PRN (00:31)
[2018-11-23] MEDS: AZTREONAM 1 GM in DEXTROSE 5%-WATER 50 ML IV SCH ×3 (01:03→17:20)
[2018-11-23] MEDS: DILTIAZEM HCL 60 MG TABLET GT SCH ×4 (02:18→20:00)
[2018-11-23] MEDS: MIDAZOLAM HCL 50 MG/100 ML RTUINJ IV PRN ×2 (03:14→22:07)
[2018-11-23] MEDS: PROPOFOL 1,000 MG/100 ML INFUS..BTL IV PRN ×4 (03:52→23:15)
[2018-11-23 03:55] LABS: ABSOLUTE BASOPHILS # (AUTO) 0.1 10^3/uL (0.0-0.2); ABSOLUTE EOSINOPHILS # (AUTO) 0.1 10^3/uL (0.0-0.6); ABSOLUTE LYMPHOCYTES (AUTO) 1.3 10^3/uL (0.5-4.7); ABSOLUTE MONOCYTES (AUTO) 0.9 10^3/uL (0.1-1.4); ABSOLUTE NEUT (AUTO) 8.9 10^3/uL (1.7-8.2); BASOPHILS % (AUTO) 0.9 % (0-2); EOSINOPHILS % (AUTO) 1.3 % (0-6); HEMATOCRIT 39.1 % (37.9-51.0); HEMOGLOBIN 13.5 g/dL (13.5-17.0); LYMPHOCYTES % (AUTO) 11.8 % (13-45); MEAN CORPUSCULAR HEMOGLOBIN 31.1 pg (27.0-33.4); MEAN CORPUSCULAR HGB CONC 34.5 g/dL (32.0-36.0); MEAN CORPUSCULAR VOLUME 90 fl (80-97); MONOCYTES % (AUTO) 7.7 % (3-13); PLATELET COUNT 164 10^3/uL (150-450); RED BLOOD COUNT 4.35 10^6/uL (4.35-5.55); RED CELL DISTRIBUTION WIDTH 13.6 % (11.5-14.0); SEGMENTED NEUTROPHILS % (AUTO) 78.3 % (42-78); TOTAL CELLS COUNTED % (AUTO) 100 %; WHITE BLOOD COUNT 11.4 10^3/uL (4.0-10.5)
[2018-11-23 04:08] LABS: ARTERIAL BLOOD BASE EXCESS 1.9 mmol/L; ARTERIAL BLOOD H2CO3 1.01 mmol/L (1.05-1.35); ARTERIAL BLOOD HCO3 24.8 mmol/L (20-24); ARTERIAL BLOOD O2 SATURATION 97.6 % (94-98); ARTERIAL BLOOD PCO2 33.7 mmHg (35-45); ARTERIAL BLOOD PH 7.49 (7.35-7.45); ARTERIAL BLOOD PO2 91.9 mmHg (80-100); ARTERIAL BLOOD TOTAL CO2 25.9 mmol/L (23-27)
[2018-11-23 04:12] LABS: ARTERIAL BLOOD FIO2 35%
[2018-11-23 04:13] LABS: ALANINE AMINOTRANSFERASE 34 U/L (21-72); ALBUMIN 3.4 g/dL (3.5-5.0); ALKALINE PHOSPHATASE 54 U/L (38-126); ANION GAP 6 (5-19); ASPARTATE AMINO TRANSFERASE 33 U/L (17-59); BILIRUBIN,DIRECT 0.3 mg/dL (0.0-0.4); BILIRUBIN,TOTAL 0.6 mg/dL (0.2-1.3); BLOOD UREA NITROGEN 21 mg/dL (7-20); CALCIUM 8.6 mg/dL (8.4-10.2); CARBON DIOXIDE 27 mmol/L (22-30); CHLORIDE 109 mmol/L (98-107); GLUCOSE 112 mg/dL (75-110); POTASSIUM 4.5 mmol/L (3.6-5.0); SODIUM 142.3 mmol/L (137-145); TOTAL PROTEIN 6.2 g/dL (6.3-8.2)
[2018-11-23] MEDS: VANCOMYCIN HCL 750 MG in DEXTROSE 5%-WATER 250 ML IV SCH ×3 (05:07→22:08)
--- NOTE | 2018-11-23 06:43 | RADIOLOGY REPORT (SQ) ---
EXAM DESCRIPTION: XR CHEST 1 VIEW COMPLETED DATE/TME: 11/23/2018 06:00 CLINICAL HISTORY: 68 years Male, pna COMPARISON: One day prior. NUMBER OF VIEWS/TECHNIQUE: 1/AP FINDINGS: Moderate left basilar opacity, moderate interstitial markings.Adequate appearing endotracheal tube. Adequate appearing enteric tube with tip at the left upper abdominal quadrant. Sternotomy. Atherosclerotic vascular disease. Normal cardiac silhouette size. No pneumothorax. Stable bony thorax. IMPRESSION: No significant change.
[2018-11-23] MEDS: ACETYLCYSTEINE 20% SOLN 800 MG/4 ML VIAL.NEB NEB SCH ×2 (09:03→21:05)
[2018-11-23] MEDS: IPRATROPIUM/ALBUTEROL 0.5-2.5 MG/3 ML AMPUL NEB PRN ×2 (09:03→21:05)
[2018-11-23] MEDS: LEVOFLOXACIN 500 MG/D5W RTU 500 MG/100 ML RTUPB IV SCH (09:36)
[2018-11-23] MEDS: DIGOXIN 0.25 MG TABLET NG SCH (09:36)
[2018-11-23] MEDS: PANTOPRAZOLE SODIUM 40 MG VIAL IV SCH ×2 (09:37→22:08)
[2018-11-23] MEDS: ENOXAPARIN SODIUM INJ 40 MG/0.4 ML DISP.SYRIN SUBCUT SCH (09:37)
[2018-11-23] MEDS ORDERED: NORMAL SALINE 1000 ML 1,000 ML IV PRN (11:29)
[2018-11-23] MEDS: NORMAL SALINE 1000 ML 1,000 ML IV PRN (11:30)
--- NOTE | 2018-11-23 13:36 | PDOC PROGRESS REPORT ---
Subjective Progress Note for:: 11/23/18 Subjective:: Patient is currently on respiratory support Patient is tolerating the tube feeding Discussed with the ICU nurses no other concern Reason For Visit: ACUTE RESPIRATORY FAILURE Physical Exam Vital Signs: Temp Pulse Resp BP Pulse Ox 99.1 F 68 21 H 124/61 94 11/23/18 12:00 11/23/18 12:00 11/23/18 12:00 11/23/18 12:00 11/23/18 12:00 Intake & Output 11/22/18 11/23/18 11/24/18 06:59 06:59 06:59 Intake Total 1705 4148 1038 Output Total 4400 3090 1540 Balance -2695 1058 -502 Weight 73.7 kg 74.3 kg Physical Exam: Please intubated under sedation's General appearance: PRESENT: no acute distress Eye exam: PRESENT: PERRLA Mouth exam: PRESENT: neck supple Respiratory exam: PRESENT: clear to auscultation nelson Cardiovascular exam: PRESENT: +S1, +S2 GI/Abdominal exam: PRESENT: normal bowel sounds, soft Neurological exam: PRESENT: altered Skin exam: PRESENT: dry Results Laboratory Results: 11/23/18 03:42 11/23/18 03:42 11/23/18 11/23/18 11/23/18 03:42 03:42 03:58 WBC 11.4 H RBC 4.35 Hgb 13.5 Hct 39.1 MCV 90 MCH 31.1 MCHC 34.5 RDW 13.6 Plt Count 164 Seg Neutrophils % 78.3 H Lymphocytes % 11.8 L Monocytes % 7.7 Eosinophils % 1.3 Basophils % 0.9 Absolute Neutrophils 8.9 H Absolute Lymphocytes 1.3 Absolute Monocytes 0.9 Absolute Eosinophils 0.1 Absolute Basophils 0.1 Carbonic Acid 1.01 L HCO3/H2CO3 Ratio 24:1 ABG pH 7.49 H ABG pCO2 33.7 L ABG pO2 91.9 ABG HCO3 24.8 H ABG O2 Saturation 97.6 ABG Base Excess 1.9 FiO2 35% Sodium 142.3 Potassium 4.5 Chloride 109 H Carbon Dioxide 27 Anion Gap 6 BUN 21 H Creatinine 0.92 Est GFR ( Amer) > 60 Est GFR (Non-Af Amer) > 60 Glucose 112 H Calcium 8.6 Magnesium 2.4 H Total Bilirubin 0.6 AST 33 ALT 34 Alkaline Phosphatase 54 Total Protein 6.2 L Albumin 3.4 L 11/16/18 11/17/18 11/17/18 21:30 00:08 00:08 Creatine Kinase 43 L CK-MB (CK-2) Troponin I 0.016 NT-Pro-B Natriuret Pep 2560 H 2850 H 11/17/18 11/17/18 11/17/18 00:08 05:51 05:51 Creatine Kinase 39 L CK-MB (CK-2) 1.69 2.13 Troponin I 0.055 0.144 NT-Pro-B Natriuret Pep 11/17/18 11/17/18 12:13 12:13 Creatine Kinase 41 L CK-MB (CK-2) 2.62 Troponin I 0.103 NT-Pro-B Natriuret Pep Impressions: Head CT 11/16/18 22:30 IMPRESSION: Atrophy with small vessel ischemic change. Negative for acute intracranial abnormality TECHNICAL DOCUMENTATION: Quality ID # 436: Final reports with documentation of one or more dose reduction techniques (e.g., Automated exposure control, adjustment of the mA and/or kV according to patient size, use of iterative reconstruction technique) copyright 2010 [employer]- All Rights Reserved KUB X-Ray 11/16/18 23:43 IMPRESSION: Tip of the enteric tube likely in the proximal stomach. copyright 2010 [employer]- All Rights Reserved Chest X-Ray 11/23/18 06:00 IMPRESSION: No significant change. Assessment & Plan - Diagnosis (1) Acute respiratory failure with hypercapnia Is this a current diagnosis for this admission?: Yes Plan: Currently follow with the pulmonary (2) MRSA (methicillin resistant staphylococcus aureus) pneumonia Qualifiers: Laterality: left Is this a current diagnosis for this admission?: Yes Plan: on IV antibiotic (3) Chronic obstructive pulmonary disease with (acute) exacerbation Is this a current diagnosis for this admission?: Yes (4) HTN (hypertension) Qualifiers: Hypertension type: essential hypertension Qualified Code(s): I10 - Essential (primary) hypertension Is this a current diagnosis for this admission?: Yes (5) PAD (peripheral artery disease) Is this a current diagnosis for this admission?: Yes (6) S/P CABG (coronary artery bypass graft) Is this a current diagnosis for this admission?: Yes - Time Time Spent with patient: 25-34 minutes Total Critical Time (Minutes): 25 Medications reviewed and adjusted accordingly: Yes Anticipated discharge: Other Within: Other - Plan Summary Plan Summary: Continues to IV antibiotic
[2018-11-23] MEDS: DOCUSATE SODIUM 100 MG/10 ML UDC NG SCH ×2 (14:10→22:08)
[2018-11-23] MEDS: ATORVASTATIN CALCIUM 10 MG TABLET NG SCH (22:08)
--- NOTE | 2018-11-23 22:16 | RADIOLOGY REPORT (SQ) ---
EXAM DESCRIPTION: XR CHEST 1 VIEW COMPLETED DATE/TME: 11/23/2018 00:00 CLINICAL HISTORY: 68 years, Male, placement of Endotracheal tube COMPARISON: November 23, 2018 6:06 AM. NUMBER OF VIEWS: One TECHNIQUE: AP view of the chest LIMITATIONS: None. FINDINGS: The endotracheal tube terminates the level of the clavicles. NG tube terminates below the diaphragm in the region of the stomach. Diffuse hazy appearance of the pulmonary interstitium. Left basilar opacity. The patient has had a CABG. No definite pleural abnormalities. IMPRESSION: ET tube in good position otherwise no significant change. copyright 2010 [employer]- All Rights Reserved
[2018-11-24] MEDS: AZTREONAM 1 GM in DEXTROSE 5%-WATER 50 ML IV SCH ×2 (01:12→11:10)
[2018-11-24] MEDS: DILTIAZEM HCL 60 MG TABLET GT SCH ×4 (02:17→22:07)
[2018-11-24 04:05] LABS: ARTERIAL BLOOD BASE EXCESS 2.7 mmol/L; ARTERIAL BLOOD H2CO3 1.11 mmol/L (1.05-1.35); ARTERIAL BLOOD HCO3 26.3 mmol/L (20-24); ARTERIAL BLOOD O2 SATURATION 97.8 % (94-98); ARTERIAL BLOOD PH 7.47 (7.35-7.45); ARTERIAL BLOOD PO2 96.9 mmHg (80-100); ARTERIAL BLOOD TOTAL CO2 27.4 mmol/L (23-27)
[2018-11-24 04:06] LABS: ARTERIAL BLOOD FIO2 30%
[2018-11-24 04:15] LABS: ABSOLUTE BASOPHILS # (AUTO) 0.1 10^3/uL (0.0-0.2); ABSOLUTE EOSINOPHILS # (AUTO) 0.1 10^3/uL (0.0-0.6); ABSOLUTE LYMPHOCYTES (AUTO) 1.3 10^3/uL (0.5-4.7); BASOPHILS % (AUTO) 0.8 % (0-2); EOSINOPHILS % (AUTO) 1.4 % (0-6); HEMATOCRIT 42.3 % (37.9-51.0); HEMOGLOBIN 14.6 g/dL (13.5-17.0); LYMPHOCYTES % (AUTO) 12.2 % (13-45); MEAN CORPUSCULAR HEMOGLOBIN 31.2 pg (27.0-33.4); MEAN CORPUSCULAR HGB CONC 34.4 g/dL (32.0-36.0); MEAN CORPUSCULAR VOLUME 91 fl (80-97); MONOCYTES % (AUTO) 9.1 % (3-13); PLATELET COUNT 180 10^3/uL (150-450); RED BLOOD COUNT 4.67 10^6/uL (4.35-5.55); RED CELL DISTRIBUTION WIDTH 13.4 % (11.5-14.0); SEGMENTED NEUTROPHILS % (AUTO) 76.5 % (42-78); TOTAL CELLS COUNTED % (AUTO) 100 %; WHITE BLOOD COUNT 10.5 10^3/uL (4.0-10.5)
[2018-11-24 04:38] LABS: ANION GAP 7 (5-19); BLOOD UREA NITROGEN 22 mg/dL (7-20); CALCIUM 8.9 mg/dL (8.4-10.2); CARBON DIOXIDE 26 mmol/L (22-30); CHLORIDE 108 mmol/L (98-107); GLUCOSE 117 mg/dL (75-110); POTASSIUM 4.4 mmol/L (3.6-5.0); SODIUM 141.3 mmol/L (137-145)
[2018-11-24] MEDS: VANCOMYCIN HCL 750 MG in DEXTROSE 5%-WATER 250 ML IV SCH ×3 (05:15→22:08)
[2018-11-24] MEDS: NORMAL SALINE 1000 ML 1,000 ML IV PRN (06:16)
[2018-11-24] MEDS: PROPOFOL 1,000 MG/100 ML INFUS..BTL IV PRN ×2 (06:17→18:33)
[2018-11-24] MEDS ORDERED: MIDAZOLAM 2 MG/2 ML INJ ONE ×2 (06:54→06:57)
--- NOTE | 2018-11-24 07:17 | RADIOLOGY REPORT (SQ) ---
EXAM DESCRIPTION: XR CHEST 1 VIEW COMPLETED DATE/TME: 11/24/2018 06:00 CLINICAL HISTORY: Respiratory Distress. 68 years Male, resp failure/pna COMPARISON: One day prior. NUMBER OF VIEWS/TECHNIQUE: 1/AP FINDINGS: Moderate interstitial markings. Moderate left basilar opacity-effusion. Small right basilar opacity-effusion.Adequate appearing endotracheal tube. Likely adequate appearing enteric tube partially obscured. Atherosclerotic vascular disease. Sternotomy. Normal cardiac silhouette size. No pneumothorax. Stable bony thorax. IMPRESSION: No significant change.
[2018-11-24] MEDS: ACETYLCYSTEINE 20% SOLN 800 MG/4 ML VIAL.NEB NEB SCH ×2 (08:05→19:12)
[2018-11-24] MEDS: IPRATROPIUM/ALBUTEROL 0.5-2.5 MG/3 ML AMPUL NEB PRN ×2 (08:05→19:12)
[2018-11-24] MEDS: ENOXAPARIN SODIUM INJ 40 MG/0.4 ML DISP.SYRIN SUBCUT SCH (11:10)
[2018-11-24] MEDS: LEVOFLOXACIN 500 MG/D5W RTU 500 MG/100 ML RTUPB IV SCH (11:10)
[2018-11-24] MEDS: DIGOXIN 0.25 MG TABLET NG SCH (11:11)
[2018-11-24] MEDS: PANTOPRAZOLE SODIUM 40 MG VIAL IV SCH ×2 (11:11→22:07)
[2018-11-24] MEDS: DOCUSATE SODIUM 100 MG/10 ML UDC NG SCH ×2 (11:13→22:08)
--- NOTE | 2018-11-24 11:36 | PDOC PROGRESS REPORT ---
Subjective Progress Note for:: 11/24/18 Subjective:: Patient failed attempt at weaning this morning. Remain on tube feeding and tolerant. No reported definitive fever. Blood culture has been no growth x 5 days. Reason For Visit: ACUTE RESPIRATORY FAILURE Physical Exam Vital Signs: Temp Pulse Resp BP Pulse Ox 99.5 F 75 21 H 125/51 L 94 11/24/18 10:00 11/24/18 08:05 11/24/18 10:00 11/24/18 09:09 11/24/18 10:00 Intake & Output 11/23/18 11/24/18 11/25/18 06:59 06:59 06:59 Intake Total 4148 3431 Output Total 3090 3780 600 Balance 1058 -349 -600 Weight 74.3 kg 73.4 kg Physical Exam: Remain intubated and sedated. ET and OG tubes insitu. Head exam: PRESENT: atraumatic, normocephalic Eye exam: PRESENT: conjunctiva pink, EOMI, PERRLA. ABSENT: pallor, scleral icterus Ear exam: PRESENT: normal external ear exam Respiratory exam: PRESENT: clear to auscultation nelson, decreased breath sounds Cardiovascular exam: PRESENT: Irregular rhythm. ABSENT: diastolic murmur, rubs, systolic murmur GI/Abdominal exam: PRESENT: normal bowel sounds, soft Extremities exam: ABSENT: pedal edema Neurological exam: PRESENT: altered - sedated Skin exam: PRESENT: dry, warm Results Laboratory Results: 11/24/18 04:02 11/24/18 04:02 11/24/18 11/24/18 11/24/18 03:54 04:02 04:02 WBC 10.5 RBC 4.67 Hgb 14.6 Hct 42.3 MCV 91 MCH 31.2 MCHC 34.4 RDW 13.4 Plt Count 180 Seg Neutrophils % 76.5 Lymphocytes % 12.2 L Monocytes % 9.1 Eosinophils % 1.4 Basophils % 0.8 Absolute Neutrophils 8.0 Absolute Lymphocytes 1.3 Absolute Monocytes 1.0 Absolute Eosinophils 0.1 Absolute Basophils 0.1 Carbonic Acid 1.11 HCO3/H2CO3 Ratio 23:1 ABG pH 7.47 H ABG pCO2 37.0 ABG pO2 96.9 ABG HCO3 26.3 H ABG O2 Saturation 97.8 ABG Base Excess 2.7 FiO2 30% Sodium 141.3 Potassium 4.4 Chloride 108 H Carbon Dioxide 26 Anion Gap 7 BUN 22 H Creatinine 0.83 Est GFR ( Amer) > 60 Est GFR (Non-Af Amer) > 60 Glucose 117 H Calcium 8.9 Magnesium 2.4 H 11/16/18 11/17/18 11/17/18 21:30 00:08 00:08 Creatine Kinase 43 L CK-MB (CK-2) Troponin I 0.016 NT-Pro-B Natriuret Pep 2560 H 2850 H 11/17/18 11/17/18 11/17/18 00:08 05:51 05:51 Creatine Kinase 39 L CK-MB (CK-2) 1.69 2.13 Troponin I 0.055 0.144 NT-Pro-B Natriuret Pep 11/17/18 11/17/18 12:13 12:13 Creatine Kinase 41 L CK-MB (CK-2) 2.62 Troponin I 0.103 NT-Pro-B Natriuret Pep Impressions: Head CT 11/16/18 22:30 IMPRESSION: Atrophy with small vessel ischemic change. Negative for acute intracranial abnormality TECHNICAL DOCUMENTATION: Quality ID # 436: Final reports with documentation of one or more dose reduction techniques (e.g., Automated exposure control, adjustment of the mA and/or kV according to patient size, use of iterative reconstruction technique) copyright 2010 [email or web address]- All Rights Reserved KUB X-Ray 11/16/18 23:43 IMPRESSION: Tip of the enteric tube likely in the proximal stomach. copyright 2010 [email or web address]- All Rights Reserved Chest X-Ray 11/24/18 06:00 IMPRESSION: No significant change. Assessment & Plan - Diagnosis (1) Acute respiratory failure with hypercapnia Is this a current diagnosis for this admission?: Yes (2) MRSA (methicillin resistant staphylococcus aureus) pneumonia Qualifiers: Laterality: left Is this a current diagnosis for this admission?: Yes (3) Chronic obstructive pulmonary disease with (acute) exacerbation Is this a current diagnosis for this admission?: Yes (4) Chronic atrial fibrillation with rapid ventricular response Is this a current diagnosis for this admission?: Yes (5) Gastric stress ulcer Is this a current diagnosis for this admission?: Yes (6) HTN (hypertension) Qualifiers: Hypertension type: essential hypertension Qualified Code(s): I10 - Essential (primary) hypertension Is this a current diagnosis for this admission?: Yes (7) CAD (coronary artery disease) Qualifiers: Coronary Disease-Associated Artery/Lesion type: unspecified vessel or lesion type [place] vs. transplanted heart: [place] heart Associated angina: without angina Qualified Code(s): I25.10 - Atherosclerotic heart disease of [place] coronary artery without angina pectoris Is this a current diagnosis for this admission?: Yes (8) HLD (hyperlipidemia) Qualifiers: Hyperlipidemia type: pure hypercholesterolemia Qualified Code(s): E78.00 - Pure hypercholesterolemia, unspecified; E78.0 - Pure hypercholesterolemia Is this a current diagnosis for this admission?: Yes (9) S/P CABG (coronary artery bypass graft) Is this a current diagnosis for this admission?: Yes - Time Time Spent with patient: 25-34 minutes Medications reviewed and adjusted accordingly: Yes Anticipated discharge: Home with Homehealth, SNF Within: Other - Inpatient Certification Based on my medical assessment, after consideration of the patient's comorbidities, presenting symptoms, or acuity I expect that the services needed warrant INPATIENT care.: Yes I certify that my determination is in accordance with my understanding of Medicare's requirements for reasonable and necessary INPATIENT services [42 CFR 412.3e].: Yes Medical Necessity: Need Close Monitoring Due to Risk of Patient Decompensation, Need For IV Fluids, Need For Continuous Telemetry Monitoring, Need for Nebulizer Therapy and Monitoring of Response, Need for IV Antibiotics, Risk of Complicatio n if Not Cared For in Hospital, Risk of Diagnosis Which Will Require Inpatient Eval/Care/Monitoring Post Hospital Care: D/C Audiometrist Documentation, D/C or Transfer Summary - Plan Summary Plan Summary: D/C Levofloxacin and Aztreonam coverage . Maintain on IV Vancomycin. Continue all other current medication management. Overall prognosis remain guarded.
[2018-11-24] MEDS: MIDAZOLAM HCL 50 MG/100 ML RTUINJ IV PRN (18:33)
[2018-11-24] MEDS: ATORVASTATIN CALCIUM 10 MG TABLET NG SCH (22:07)
[2018-11-25] MEDS: DILTIAZEM HCL 60 MG TABLET GT SCH ×4 (04:36→21:48)
[2018-11-25] MEDS: NORMAL SALINE 1000 ML 1,000 ML IV PRN (04:37)
[2018-11-25 06:18] LABS: ABSOLUTE BASOPHILS # (AUTO) 0.1 10^3/uL (0.0-0.2); ABSOLUTE EOSINOPHILS # (AUTO) 0.2 10^3/uL (0.0-0.6); ABSOLUTE LYMPHOCYTES (AUTO) 1.1 10^3/uL (0.5-4.7); ABSOLUTE MONOCYTES (AUTO) 0.8 10^3/uL (0.1-1.4); ABSOLUTE NEUT (AUTO) 6.8 10^3/uL (1.7-8.2); EOSINOPHILS % (AUTO) 2.2 % (0-6); HEMATOCRIT 39.4 % (37.9-51.0); HEMOGLOBIN 13.4 g/dL (13.5-17.0); LYMPHOCYTES % (AUTO) 12.5 % (13-45); MEAN CORPUSCULAR HEMOGLOBIN 30.9 pg (27.0-33.4); MEAN CORPUSCULAR HGB CONC 33.9 g/dL (32.0-36.0); MEAN CORPUSCULAR VOLUME 91 fl (80-97); MONOCYTES % (AUTO) 9.1 % (3-13); PLATELET COUNT 198 10^3/uL (150-450); RED BLOOD COUNT 4.33 10^6/uL (4.35-5.55); RED CELL DISTRIBUTION WIDTH 13.5 % (11.5-14.0); SEGMENTED NEUTROPHILS % (AUTO) 75.2 % (42-78); TOTAL CELLS COUNTED % (AUTO) 100 %
[2018-11-25 06:36] LABS: ARTERIAL BLOOD BASE EXCESS 3.3 mmol/L; ARTERIAL BLOOD H2CO3 1.18 mmol/L (1.05-1.35); ARTERIAL BLOOD HCO3 27.2 mmol/L (20-24); ARTERIAL BLOOD O2 SATURATION 95.9 % (94-98); ARTERIAL BLOOD PCO2 39.1 mmHg (35-45); ARTERIAL BLOOD PH 7.46 (7.35-7.45); ARTERIAL BLOOD PO2 76.2 mmHg (80-100); ARTERIAL BLOOD TOTAL CO2 28.4 mmol/L (23-27)
[2018-11-25 06:37] LABS: ARTERIAL BLOOD FIO2 30%
[2018-11-25] MEDS: VANCOMYCIN HCL 750 MG in DEXTROSE 5%-WATER 250 ML IV SCH ×3 (06:42→21:57)
[2018-11-25 06:43] LABS: ANION GAP 6 (5-19); BLOOD UREA NITROGEN 21 mg/dL (7-20); CALCIUM 8.8 mg/dL (8.4-10.2); CARBON DIOXIDE 28 mmol/L (22-30); CHLORIDE 109 mmol/L (98-107); GLUCOSE 111 mg/dL (75-110); POTASSIUM 4.3 mmol/L (3.6-5.0); SODIUM 142.5 mmol/L (137-145)
[2018-11-25] MEDS: MIDAZOLAM HCL 50 MG/100 ML RTUINJ IV PRN (06:55)
--- NOTE | 2018-11-25 07:26 | PDOC PROGRESS REPORT ---
Subjective Progress Note for:: 11/25/18 Subjective:: Patient remain intubated and vent supported. Remain on tube feeding without significant gastric residual. No reported fever. Reason For Visit: ACUTE RESPIRATORY FAILURE Physical Exam Vital Signs: Temp Pulse Resp BP Pulse Ox 98.1 F 63 24 H 131/61 H 94 11/25/18 06:09 11/25/18 02:00 11/25/18 06:09 11/25/18 06:09 11/25/18 06:09 Intake & Output 11/24/18 11/25/18 11/26/18 06:59 06:59 06:59 Intake Total 3431 2824 Output Total 3780 2810 Balance -349 14 Weight 73.4 kg 72.5 kg Physical Exam: Remain intubated and sedated. ET and OG tubes insitu. Head exam: PRESENT: atraumatic, normocephalic Eye exam: PRESENT: conjunctiva pink, EOMI, PERRLA. ABSENT: pallor, scleral icterus Ear exam: PRESENT: normal external ear exam Respiratory exam: PRESENT: clear to auscultation nelson, decreased breath sounds Cardiovascular exam: PRESENT: Irregular rhythm. ABSENT: diastolic murmur, rubs, systolic murmur GI/Abdominal exam: PRESENT: normal bowel sounds, soft Extremities exam: ABSENT: pedal edema Neurological exam: PRESENT: altered - sedated Skin exam: PRESENT: dry, warm Results Laboratory Results: 11/25/18 06:05 11/25/18 06:05 11/25/18 11/25/18 11/25/18 06:05 06:05 06:20 WBC 9.0 RBC 4.33 L Hgb 13.4 L Hct 39.4 MCV 91 MCH 30.9 MCHC 33.9 RDW 13.5 Plt Count 198 Seg Neutrophils % 75.2 Lymphocytes % 12.5 L Monocytes % 9.1 Eosinophils % 2.2 Basophils % 1.0 Absolute Neutrophils 6.8 Absolute Lymphocytes 1.1 Absolute Monocytes 0.8 Absolute Eosinophils 0.2 Absolute Basophils 0.1 Carbonic Acid 1.18 HCO3/H2CO3 Ratio 23:1 ABG pH 7.46 H ABG pCO2 39.1 ABG pO2 76.2 L ABG HCO3 27.2 H ABG O2 Saturation 95.9 ABG Base Excess 3.3 FiO2 30% Sodium 142.5 Potassium 4.3 Chloride 109 H Carbon Dioxide 28 Anion Gap 6 BUN 21 H Creatinine 0.78 Est GFR ( Amer) > 60 Est GFR (Non-Af Amer) > 60 Glucose 111 H Calcium 8.8 Magnesium 2.4 H 11/16/18 11/17/18 11/17/18 21:30 00:08 00:08 Creatine Kinase 43 L CK-MB (CK-2) Troponin I 0.016 NT-Pro-B Natriuret Pep 2560 H 2850 H 11/17/18 11/17/18 11/17/18 00:08 05:51 05:51 Creatine Kinase 39 L CK-MB (CK-2) 1.69 2.13 Troponin I 0.055 0.144 NT-Pro-B Natriuret Pep 11/17/18 11/17/18 12:13 12:13 Creatine Kinase 41 L CK-MB (CK-2) 2.62 Troponin I 0.103 NT-Pro-B Natriuret Pep Impressions: Head CT 11/16/18 22:30 IMPRESSION: Atrophy with small vessel ischemic change. Negative for acute intracranial abnormality TECHNICAL DOCUMENTATION: Quality ID # 436: Final reports with documentation of one or more dose reduction techniques (e.g., Automated exposure control, adjustment of the mA and/or kV according to patient size, use of iterative reconstruction technique) copyright 2011 [employer]- All Rights Reserved KUB X-Ray 11/16/18 23:43 IMPRESSION: Tip of the enteric tube likely in the proximal stomach. copyright 2011 [employer]- All Rights Reserved Assessment & Plan - Diagnosis (1) Acute respiratory failure with hypercapnia Is this a current diagnosis for this admission?: Yes (2) MRSA (methicillin resistant staphylococcus aureus) pneumonia Qualifiers: Laterality: left Is this a current diagnosis for this admission?: Yes (3) Chronic obstructive pulmonary disease with (acute) exacerbation Is this a current diagnosis for this admission?: Yes (4) Chronic atrial fibrillation with rapid ventricular response Is this a current diagnosis for this admission?: Yes (5) Gastric stress ulcer Is this a current diagnosis for this admission?: Yes (6) HTN (hypertension) Qualifiers: Hypertension type: essential hypertension Qualified Code(s): I10 - Essential (primary) hypertension Is this a current diagnosis for this admission?: Yes (7) CAD (coronary artery disease) Qualifiers: Coronary Disease-Associated Artery/Lesion type: unspecified vessel or lesion type [place] vs. transplanted heart: [place] heart Associated angina: without angina Qualified Code(s): I25.10 - Atherosclerotic heart disease of [place] coronary artery without angina pectoris Is this a current diagnosis for this admission?: Yes (8) HLD (hyperlipidemia) Qualifiers: Hyperlipidemia type: pure hypercholesterolemia Qualified Code(s): E78.00 - Pure hypercholesterolemia, unspecified; E78.0 - Pure hypercholesterolemia Is this a current diagnosis for this admission?: Yes (9) S/P CABG (coronary artery bypass graft) Is this a current diagnosis for this admission?: Yes - Time Time Spent with patient: 25-34 minutes Medications reviewed and adjusted accordingly: Yes Anticipated discharge: SNF Within: Other - Inpatient Certification Based on my medical assessment, after consideration of the patient's comorbidities, presenting symptoms, or acuity I expect that the services needed warrant INPATIENT care.: Yes I certify that my determination is in accordance with my understanding of Medicare's requirements for reasonable and necessary INPATIENT services [42 CFR 412.3e].: Yes Medical Necessity: Need Close Monitoring Due to Risk of Patient Decompensation, Need For IV Fluids, Need For Continuous Telemetry Monitoring, Need for Nebulizer Therapy and Monitoring of Response, Need for IV Antibiotics, Risk of Complication if Not Cared For in Hospital, Risk of Diagnosis Which Will Require Inpatient Eval/Care/Monitoring Post Hospital Care: D/C or Transfer Summary - Plan Summary Plan Summary: Continue IV Vancomyciin coverage. Obtain complete echocardiogram. His last echo in 09/2016 suggested LVEF at 40-45%. We will continue efforts at weaning if not possible we will consider LTAC transfer.
[2018-11-25 07:38] LABS: VANCOMYCIN,TROUGH 18.4 ug/mL (5.0-20.0)
[2018-11-25] MEDS: IPRATROPIUM/ALBUTEROL 0.5-2.5 MG/3 ML AMPUL NEB PRN ×2 (07:50→20:14)
[2018-11-25] MEDS: ACETYLCYSTEINE 20% SOLN 800 MG/4 ML VIAL.NEB NEB SCH ×2 (07:50→20:18)
--- NOTE | 2018-11-25 08:23 | RADIOLOGY REPORT (SQ) ---
EXAM DESCRIPTION: CHEST SINGLE VIEW COMPLETED DATE/TIME: 11/25/2018 6:33 am REASON FOR STUDY: pna COMPARISON: 11/24/2018 EXAM PARAMETERS: NUMBER OF VIEWS: One view. TECHNIQUE: Single frontal radiographic view of the chest acquired. RADIATION DOSE: NA LIMITATIONS: Patient rotation. FINDINGS: LUNGS AND PLEURA: Increased hazy opacification the bilateral lung bases compared to prior exam. Small bilateral pleural effusions. No appreciable pneumothorax. MEDIASTINUM AND HILAR STRUCTURES: Stable given rotation. HEART AND VASCULAR STRUCTURES: Enlarged, stable. Atherosclerotic aorta. BONES: Median sternotomy changes with evidence of prior CABG. HARDWARE: Enteric tube tip overlies gastric body. Endotracheal tube tip overlies midthoracic trachea . OTHER: No other significant finding. IMPRESSION: Increased hazy bibasilar opacification, possibly atelectasis or infection. Small bilate ral pleural effusions. TECHNICAL DOCUMENTATION: JOB ID: [id number] [employer]- All Rights Reserved Reading location - IP/workstation name: [email or web address]
[2018-11-25] MEDS: DIGOXIN 0.25 MG TABLET NG SCH (12:06)
[2018-11-25] MEDS: DOCUSATE SODIUM 100 MG/10 ML UDC NG SCH ×2 (12:07→21:47)
[2018-11-25] MEDS: ENOXAPARIN SODIUM INJ 40 MG/0.4 ML DISP.SYRIN SUBCUT SCH (12:07)
--- NOTE | 2018-11-25 20:16 | XCELERA REPORT ---
[address] [address] Transthoracic Echocardiogram Report Name: RUKHSANA GRAHAM Age: 68 yrs Gender: Male : 1950 Patient Status: Inpatient Patient Location: ICU^602A Study Date: 11/25/2018 10:26 AM Procedure: A two-dimensional transthoracic echocardiogram with color flow and Doppler was performed. The study was technically limited with all images being suboptimal in quality. Reason For Study: chronic atrial fibrillation, Respiratory failure History: chronic atrial fibrillation, Respiratory failure. Ordering Physician: DEYSI CONTRERAS Performed By: Ivon Nath Interpretation Summary The left ventricle is normal in size. There is normal left ventricular wall thickness. LV EF is 50% Left ventricular systolic function is borderline reduced. There is borderline global hypokinesis of the left ventricle. There is no thrombus. The right ventricle is normal in size and function. The right atrium is mildly dilated. The left atrium is moderately dilated. There is moderate mitral annular calcification. There is no mitral valve stenosis. There is no mitral regurgitation noted. There is no aortic valvular vegetation. There is no aortic valve stenosis There is no LVOT obstruction. There is a mild amount of aortic regurgitation There is no tricuspid stenosis. There is a mild amount of tricuspid regurgitation There is mild pulmonary hypertension by echo RVSP is8 mm of Hg , with RA mran of 10. There is no pulmonic valvular stenosis. There is a trace amount of pulmonic regurgitation There is no pericardial effusion. MMode/2D Measurements & Calculations RVDd: 3.3 cm LVIDd: 5.7 cm FS: 24.7 % Ao root diam: 3.0 cm IVSd: 0.88 cm LVIDs: 4.3 cm EDV(Teich): 160.0 ml Ao root area: 7.3 cm2 LVPWd: 1.2 cm ESV(Teich): 82.6 ml EF(Teich): 48.4 % Doppler Measurements & Calculations Ao V2 max: AI max [place]: LV V1 max PG: PA V2 max: 189.0 cm/sec 409.2 cm/sec 7.0 mmHg 104.2 cm/sec Ao max P.3 mmHg AI max P.0 mmHg LV V1 max: PA max PG: AI dec slope: 131.8 cm/sec 4.3 mmHg 215.5 cm/sec2 AI P1/2t: 556.1 msec PI max placido: TR max [place]: 165.9 cm/sec 261.8 cm/sec PI max P.0 mmHg TR max P.7 mmHg PI dec slope: 112.5 cm/sec2 Left Ventricle The left ventricle is normal in size. There is normal left ventricular wall thickness. LV EF is 50%. Left ventricular systolic function is borderline reduced. LV diastolic function could not be adequately assessed due to atrial fibrilation. There is borderline global hypokinesis of the left ventricle. There is no thrombus. Right Ventricle The right ventricle is normal in size and function. Atria The right atrium is mildly dilated. The left atrium is moderately dilated. Mitral Valve There is moderate mitral annular calcification. There is no evidence of mitral valve prolapse. There is no vegetation seen on the mitral valve. There is no mitral valve stenosis. There is no mitral regurgitation noted. Aortic Valve There is no aortic valvular vegetation. There is no aortic valve stenosis. There is no LVOT obstruction. There is a mild amount of aortic regurgitation. Tricuspid Valve There is no tricuspid stenosis. There is a mild amount of tricuspid regurgitation. There is mild pulmonary hypertension by echo. RVSP is8 mm of Hg , with RA mran of 10. Pulmonic Valve There is no pulmonic valvular stenosis. There is a trace amount of pulmonic regurgitation. Great Vessels The aortic root is normal size. Effusions There is no pericardial effusion. : DEYSI CONTRERAS > Melisa Weiner
[2018-11-25] MEDS: ATORVASTATIN CALCIUM 10 MG TABLET NG SCH (21:47)
[2018-11-26] MEDS: PROPOFOL 1,000 MG/100 ML INFUS..BTL IV PRN ×3 (00:16→19:37)
[2018-11-26] MEDS: NORMAL SALINE 1000 ML 1,000 ML IV PRN ×2 (00:34→19:52)
[2018-11-26] MEDS: DILTIAZEM HCL 60 MG TABLET GT SCH ×4 (02:24→20:24)
[2018-11-26 04:39] LABS: ABSOLUTE BASOPHILS # (AUTO) 0.1 10^3/uL (0.0-0.2); ABSOLUTE EOSINOPHILS # (AUTO) 0.1 10^3/uL (0.0-0.6); ABSOLUTE LYMPHOCYTES (AUTO) 1.4 10^3/uL (0.5-4.7); ABSOLUTE MONOCYTES (AUTO) 0.8 10^3/uL (0.1-1.4); ABSOLUTE NEUT (AUTO) 7.6 10^3/uL (1.7-8.2); EOSINOPHILS % (AUTO) 1.4 % (0-6); HEMATOCRIT 40.1 % (37.9-51.0); HEMOGLOBIN 13.9 g/dL (13.5-17.0); LYMPHOCYTES % (AUTO) 14.1 % (13-45); MEAN CORPUSCULAR HEMOGLOBIN 31.2 pg (27.0-33.4); MEAN CORPUSCULAR HGB CONC 34.7 g/dL (32.0-36.0); MEAN CORPUSCULAR VOLUME 90 fl (80-97); MONOCYTES % (AUTO) 7.9 % (3-13); PLATELET COUNT 220 10^3/uL (150-450); RED BLOOD COUNT 4.47 10^6/uL (4.35-5.55); RED CELL DISTRIBUTION WIDTH 13.5 % (11.5-14.0); SEGMENTED NEUTROPHILS % (AUTO) 75.6 % (42-78); TOTAL CELLS COUNTED % (AUTO) 100 %
[2018-11-26 04:47] LABS: ANION GAP 7 (5-19); BLOOD UREA NITROGEN 20 mg/dL (7-20); CALCIUM 8.9 mg/dL (8.4-10.2); CARBON DIOXIDE 27 mmol/L (22-30); CHLORIDE 110 mmol/L (98-107); GLUCOSE 102 mg/dL (75-110); POTASSIUM 4.1 mmol/L (3.6-5.0)
[2018-11-26] MEDS: VANCOMYCIN HCL 750 MG in DEXTROSE 5%-WATER 250 ML IV SCH ×3 (05:24→21:27)
[2018-11-26 06:29] LABS: ARTERIAL BLOOD BASE EXCESS 2.6 mmol/L; ARTERIAL BLOOD O2 SATURATION 98.2 % (94-98); ARTERIAL BLOOD PCO2 36.4 mmHg (35-45); ARTERIAL BLOOD PH 7.47 (7.35-7.45); ARTERIAL BLOOD TOTAL CO2 27.1 mmol/L (23-27)
[2018-11-26 06:35] LABS: ARTERIAL BLOOD FIO2 40%
--- NOTE | 2018-11-26 07:50 | PDOC PROGRESS REPORT ---
Subjective Progress Note for:: 11/26/18 Subjective:: Patient remain intubated and vent supported. He failed attempt at weaning since last clinical evaluation with subsequent need for increase in FiO2 to 40%. Remain on tube feeding without significant gastric residual. No reported fever. Remain on IV Vancomycin coverage. Reason For Visit: ACUTE RESPIRATORY FAILURE Physical Exam Vital Signs: Temp Pulse Resp BP Pulse Ox 99.0 F 68 14 123/65 96 11/26/18 06:00 11/25/18 20:14 11/26/18 06:00 11/26/18 05:09 11/26/18 06:00 Intake & Output 11/25/18 11/26/18 11/27/18 06:59 06:59 06:59 Intake Total 2924 2802 828 Output Total 2810 4100 Balance 114 -1298 828 Weight 72.5 kg 72.5 kg Physical Exam: Remain intubated and sedated. ET and OG tubes insitu. Head exam: PRESENT: atraumatic, normocephalic Eye exam: PRESENT: conjunctiva pink, EOMI, PERRLA. ABSENT: pallor, scleral icterus Ear exam: PRESENT: normal external ear exam Respiratory exam: PRESENT: clear to auscultation nelson, decreased breath sounds Cardiovascular exam: PRESENT: Irregular rhythm. ABSENT: diastolic murmur, rubs, systolic murmur GI/Abdominal exam: PRESENT: normal bowel sounds, soft Extremities exam: ABSENT: pedal edema Neurological exam: PRESENT: altered - sedated Skin exam: PRESENT: dry, warm Results Laboratory Results: 11/26/18 03:52 11/26/18 03:52 11/26/18 11/26/18 11/26/18 03:52 03:52 05:34 WBC 10.0 RBC 4.47 Hgb 13.9 Hct 40.1 MCV 90 MCH 31.2 MCHC 34.7 RDW 13.5 Plt Count 220 Seg Neutrophils % 75.6 Lymphocytes % 14.1 Monocytes % 7.9 Eosinophils % 1.4 Basophils % 1.0 Absolute Neutrophils 7.6 Absolute Lymphocytes 1.4 Absolute Monocytes 0.8 Absolute Eosinophils 0.1 Absolute Basophils 0.1 Carbonic Acid 1.10 HCO3/H2CO3 Ratio 23:1 ABG pH 7.47 H ABG pCO2 36.4 ABG pO2 108.0 H ABG HCO3 26.0 H ABG O2 Saturation 98.2 H ABG Base Excess 2.6 FiO2 40% Sodium 144.0 Potassium 4.1 Chloride 110 H Carbon Dioxide 27 Anion Gap 7 BUN 20 Creatinine 0.81 Est GFR ( Amer) > 60 Est GFR (Non-Af Amer) > 60 Glucose 102 Calcium 8.9 Magnesium 2.3 11/16/18 11/17/18 11/17/18 21:30 00:08 00:08 Creatine Kinase 43 L CK-MB (CK-2) Troponin I 0.016 NT-Pro-B Natriuret Pep 2560 H 2850 H 11/17/18 11/17/18 11/17/18 00:08 05:51 05:51 Creatine Kinase 39 L CK-MB (CK-2) 1.69 2.13 Troponin I 0.055 0.144 NT-Pro-B Natriuret Pep 11/17/18 11/17/18 12:13 12:13 Creatine Kinase 41 L CK-MB (CK-2) 2.62 Troponin I 0.103 NT-Pro-B Natriuret Pep Impressions: Head CT 11/16/18 22:30 IMPRESSION: Atrophy with small vessel ischemic change. Negative for acute intracranial abnormality TECHNICAL DOCUMENTATION: Quality ID # 436: Final reports with documentation of one or more dose reduction techniques (e.g., Automated exposure control, adjustment of the mA and/or kV according to patient size, use of iterative reconstruction technique) copyright 2011 [employer]- All Rights Reserved KUB X-Ray 11/16/18 23:43 IMPRESSION: Tip of the enteric tube likely in the proximal stomach. copyright 2011 [employer]- All Rights Reserved Assessment & Plan - Diagnosis (1) Acute respiratory failure with hypercapnia Is this a current diagnosis for this admission?: Yes (2) MRSA (methicillin resistant staphylococcus aureus) pneumonia Qualifiers: Laterality: left Is this a current diagnosis for this admission?: Yes (3) Chronic obstructive pulmonary disease with (acute) exacerbation Is this a current diagnosis for this admission?: Yes (4) Chronic atrial fibrillation with rapid ventricular response Is this a current diagnosis for this admission?: Yes (5) Gastric stress ulcer Is this a current diagnosis for this admission?: Yes (6) HTN (hypertension) Qualifiers: Hypertension type: essential hypertension Qualified Code(s): I10 - Essential (primary) hypertension Is this a current diagnosis for this admission?: Yes (7) CAD (coronary artery disease) Qualifiers: Coronary Disease-Associated Artery/Lesion type: unspecified vessel or lesion type [place] vs. transplanted heart: [place] heart Associated angina: without angina Qualified Code(s): I25.10 - Atherosclerotic heart disease of [place] coronary artery without angina pectoris Is this a current diagnosis for this admission?: Yes (8) HLD (hyperlipidemia) Qualifiers: Hyperlipidemia type: pure hypercholesterolemia Qualified Code(s): E78.00 - Pure hypercholesterolemia, unspecified; E78.0 - Pure hypercholesterolemia Is this a current diagnosis for this admission?: Yes (9) S/P CABG (coronary artery bypass graft) Is this a current diagnosis for this admission?: Yes - Time Time Spent with patient: 25-34 minutes Medications reviewed and adjusted accordingly: Yes Anticipated discharge: Other - possible transfer to LTAC for ventilator support and eventual weaning. Within: Other - Inpatient Certification Based on my medical assessment, after consideration of the patient's comorbidities, presenting symptoms, or acuity I expect that the services needed warrant INPATIENT care.: Yes I certify that my determination is in accordance with my understanding of Medicare's requirements for reasonable and necessary INPATIENT services [42 CFR 412.3e].: Yes Medical Necessity: Significant Comorbidiites Make Outpatient Treatment Too [place]is [place], Need Close Monitoring Due to Risk of Patient Decompensation, Need For IV Fluids, Need For Continuous Telemetry Monitoring, Need for Nebulizer Therapy and Monitoring of Response, Need for IV Antibiotics, Risk of Complication if Not Cared For in Hospital, Risk of Diagnosis Which Will Require Inpatient Eval/Care/Monitoring Post Hospital Care: D/C or Transfer Summary - Plan Summary Plan Summary: Continue current medication management. Start process of LTAC transfer for continue ventilator support.
[2018-11-26] MEDS: IPRATROPIUM/ALBUTEROL 0.5-2.5 MG/3 ML AMPUL NEB PRN ×2 (07:51→21:27)
[2018-11-26] MEDS: ACETYLCYSTEINE 20% SOLN 800 MG/4 ML VIAL.NEB NEB SCH ×2 (07:51→21:27)
--- NOTE | 2018-11-26 08:45 | RADIOLOGY REPORT (SQ) ---
EXAM DESCRIPTION: CHEST SINGLE VIEW COMPLETED DATE/TIME: 11/26/2018 7:26 am REASON FOR STUDY: pna COMPARISON: Multiple chest films since 11/16/2018, most recently 11/25/2018 1500 hours EXAM PARAMETERS: NUMBER OF VIEWS: One view. TECHNIQUE: Single frontal radiographic view of the chest acquired. RADIATION DOSE: NA LIMITATIONS: None. FINDINGS: LUNGS AND PLEURA: Decrease in pulmonary edema pattern/pulmonary vascular congestion compar ed to previous studies. Trace residual right and left pleural effusions in the lateral costophrenic sulci. No pneumothorax. MEDIASTINUM AND HILAR STRUCTURES: No masses. Contour normal. HEART AND VASCULAR STRUCTURES: Stable cardiomegaly, old CABG BONES: No acute findings. HARDWARE: Endotracheal tube tip 4 cm above the yesika. Nasogastric tube tip and side port in the sto mach. OTHER: No other significant finding. IMPRESSION: Minimal residual pulmonary vascular congestion with trace pleural effusions Endotracheal and nasogastric tubes in good positioning TECHNICAL DOCUMENTATION: JOB ID: [id number] [employer]- All Rights Reserved Reading location - IP/workstation name: [email or web address]
[2018-11-26] MEDS: MIDAZOLAM HCL 50 MG/100 ML RTUINJ IV PRN (09:59)
[2018-11-26] MEDS: DIGOXIN 0.25 MG TABLET NG SCH (09:59)
[2018-11-26] MEDS: DOCUSATE SODIUM 100 MG/10 ML UDC NG SCH ×2 (10:00→21:30)
[2018-11-26] MEDS: ENOXAPARIN SODIUM INJ 40 MG/0.4 ML DISP.SYRIN SUBCUT SCH (10:00)
[2018-11-26] MEDS: ATORVASTATIN CALCIUM 10 MG TABLET NG SCH (21:27)
[2018-11-27] MEDS: DILTIAZEM HCL 60 MG TABLET GT SCH ×4 (03:46→21:49)
[2018-11-27 04:11] LABS: ARTERIAL BLOOD FIO2 40%
[2018-11-27 04:13] LABS: ARTERIAL BLOOD BASE EXCESS 4.2 mmol/L; ARTERIAL BLOOD H2CO3 1.07 mmol/L (1.05-1.35); ARTERIAL BLOOD HCO3 27.2 mmol/L (20-24); ARTERIAL BLOOD O2 SATURATION 97.8 % (94-98); ARTERIAL BLOOD PCO2 35.4 mmHg (35-45); ARTERIAL BLOOD PO2 93.7 mmHg (80-100); ARTERIAL BLOOD TOTAL CO2 28.3 mmol/L (23-27)
[2018-11-27] MEDS: VANCOMYCIN HCL 750 MG in DEXTROSE 5%-WATER 250 ML IV SCH ×3 (05:43→21:51)
[2018-11-27] MEDS: PROPOFOL 1,000 MG/100 ML INFUS..BTL IV PRN ×2 (05:45→16:09)
[2018-11-27 06:54] LABS: ABSOLUTE BASOPHILS # (AUTO) 0.1 10^3/uL (0.0-0.2); ABSOLUTE EOSINOPHILS # (AUTO) 0.1 10^3/uL (0.0-0.6); ABSOLUTE LYMPHOCYTES (AUTO) 1.6 10^3/uL (0.5-4.7); ABSOLUTE MONOCYTES (AUTO) 0.8 10^3/uL (0.1-1.4); ABSOLUTE NEUT (AUTO) 8.8 10^3/uL (1.7-8.2); BASOPHILS % (AUTO) 0.7 % (0-2); EOSINOPHILS % (AUTO) 1.3 % (0-6); HEMATOCRIT 38.7 % (37.9-51.0); HEMOGLOBIN 13.5 g/dL (13.5-17.0); MEAN CORPUSCULAR HEMOGLOBIN 31.1 pg (27.0-33.4); MEAN CORPUSCULAR HGB CONC 34.8 g/dL (32.0-36.0); MEAN CORPUSCULAR VOLUME 89 fl (80-97); MONOCYTES % (AUTO) 7.1 % (3-13); PLATELET COUNT 245 10^3/uL (150-450); RED BLOOD COUNT 4.33 10^6/uL (4.35-5.55); RED CELL DISTRIBUTION WIDTH 13.3 % (11.5-14.0); SEGMENTED NEUTROPHILS % (AUTO) 76.9 % (42-78); TOTAL CELLS COUNTED % (AUTO) 100 %; WHITE BLOOD COUNT 11.4 10^3/uL (4.0-10.5)
--- NOTE | 2018-11-27 06:54 | RADIOLOGY REPORT (SQ) ---
EXAM DESCRIPTION: X-ray single view chest. CLINICAL HISTORY: 68 years Male, pna/resp failure COMPARISON: 11/26/2018 and 11/25/2018 TECHNIQUE: Single portable view of the chest performed on 11/27/2018 at 6:19 AM FINDINGS: The lungs are well expanded. There is improving aeration of the right inferior hemithorax when compared to the prior studies. There is persistent volume loss in the left lung base possibly due to atelectasis or inflammatory changes. Small pleural effusions are not excluded. There is mild generalized interstitial prominence which may reflect interstitial edema. There is no evidence of a pneumothorax. The cardiac silhouette is stable and enlarged. There are postsurgical changes of the mediastinum. The mediastinal contours are normal. No acute osseous abnormality is identified. No focal soft tissue abnormalities are seen. Lines and tubes: The endotracheal tube and feeding tube are grossly stable. IMPRESSION: 1. Slightly improving aeration in the right inferior hemithorax. 2. Persistent diffuse interstitial prominence likely reflecting interstitial edema. 3. Otherwise, no significant interval change.
[2018-11-27 07:10] LABS: ANION GAP 6 (5-19); BLOOD UREA NITROGEN 20 mg/dL (7-20); CALCIUM 8.8 mg/dL (8.4-10.2); CARBON DIOXIDE 27 mmol/L (22-30); CHLORIDE 107 mmol/L (98-107); GLUCOSE 128 mg/dL (75-110); POTASSIUM 4.2 mmol/L (3.6-5.0)
[2018-11-27] MEDS: ACETYLCYSTEINE 20% SOLN 800 MG/4 ML VIAL.NEB NEB SCH ×2 (07:49→19:39)
[2018-11-27] MEDS: IPRATROPIUM/ALBUTEROL 0.5-2.5 MG/3 ML AMPUL NEB PRN ×2 (07:49→19:39)
[2018-11-27] MEDS: DOCUSATE SODIUM 100 MG/10 ML UDC NG SCH ×2 (10:16→10:55)
[2018-11-27] MEDS: DIGOXIN 0.25 MG TABLET NG SCH (10:16)
[2018-11-27] MEDS: ENOXAPARIN SODIUM INJ 40 MG/0.4 ML DISP.SYRIN SUBCUT SCH (10:17)
[2018-11-27] MEDS: MIDAZOLAM HCL 50 MG/100 ML RTUINJ IV PRN (16:09)
[2018-11-27] MEDS: NORMAL SALINE 1000 ML 1,000 ML IV PRN (16:12)
--- NOTE | 2018-11-27 17:38 | PDOC PROGRESS REPORT ---
Subjective Progress Note for:: 11/27/18 Subjective:: Patient remain intubated and vent supported. Remain on tube feeding but currently on hold. No reported significant gastric residual. No reported fever. Reason For Visit: ACUTE RESPIRATORY FAILURE Physical Exam Vital Signs: Temp Pulse Resp BP Pulse Ox 98.2 F 90 14 130/89 H 98 11/27/18 16:00 11/27/18 16:00 11/27/18 16:00 11/27/18 16:00 11/27/18 16:43 Intake & Output 11/26/18 11/27/18 11/28/18 06:59 06:59 06:59 Intake Total 2802 3142 2080 Output Total 4100 2580 1205 Balance -1298 562 875 Weight 72.5 kg 72.7 kg Physical Exam: Remain intubated and sedated. ET and OG tubes insitu. Head exam: PRESENT: atraumatic, normocephalic Eye exam: PRESENT: conjunctiva pink, EOMI, PERRLA. ABSENT: pallor, scleral i cterus Ear exam: PRESENT: normal external ear exam Respiratory exam: PRESENT: clear to auscultation nelson, decreased breath sounds Cardiovascular exam: PRESENT: Irregular rhythm. ABSENT: diastolic murmur, rubs, systolic murmur GI/Abdominal exam: PRESENT: normal bowel sounds, soft Extremities exam: ABSENT: pedal edema Neurological exam: PRESENT: altered - sedated Skin exam: PRESENT: dry, warm Results Laboratory Results: 11/27/18 06:37 11/27/18 06:37 11/27/18 11/27/18 11/27/18 04:04 06:37 06:37 WBC 11.4 H RBC 4.33 L Hgb 13.5 Hct 38.7 MCV 89 MCH 31.1 MCHC 34.8 RDW 13.3 Plt Count 245 Seg Neutrophils % 76.9 Lymphocytes % 14.0 Monocytes % 7.1 Eosinophils % 1.3 Basophils % 0.7 Absolute Neutrophils 8.8 H Absolute Lymphocytes 1.6 Absolute Monocytes 0.8 Absolute Eosinophils 0.1 Absolute Basophils 0.1 Carbonic Acid 1.07 HCO3/H2CO3 Ratio 25:1 ABG pH 7.50 H ABG pCO2 35.4 ABG pO2 93.7 ABG HCO3 27.2 H ABG O2 Saturation 97.8 ABG Base Excess 4.2 FiO2 40% Sodium 140.0 Potassium 4.2 Chloride 107 Carbon Dioxide 27 Anion Gap 6 BUN 20 Creatinine 0.74 Est GFR ( Amer) > 60 Est GFR (Non-Af Amer) > 60 Glucose 128 H Calcium 8.8 Magnesium 2.2 11/16/18 11/17/18 11/17/18 21:30 00:08 00:08 Creatine Kinase 43 L CK-MB (CK-2) Troponin I 0.016 NT-Pro-B Natriuret Pep 2560 H 2850 H 11/17/18 11/17/18 11/17/18 00:08 05:51 05:51 Creatine Kinase 39 L CK-MB (CK-2) 1.69 2.13 Troponin I 0.055 0.144 NT-Pro-B Natriuret Pep 11/17/18 11/17/18 12:13 12:13 Creatine Kinase 41 L CK-MB (CK-2) 2.62 Troponin I 0.103 NT-Pro-B Natriuret Pep Impressions: Head CT 11/16/18 22:30 IMPRESSION: Atrophy with small vessel ischemic change. Negative for acute intracranial abnormality TECHNICAL DOCUMENTATION: Quality ID # 436: Final reports with documentation of one or more dose reduction techniques (e.g., Automated exposure control, adjustment of the mA and/or kV according to patient size, use of iterative reconstruction technique) copyright 2010 [employer]- All Rights Reserved KUB X-Ray 11/16/18 23:43 IMPRESSION: Tip of the enteric tube likely in the proximal stomach. copyright 2010 [employer]- All Rights Reserved Chest X-Ray 11/27/18 06:00 IMPRESSION: 1. Slightly improving aeration in the right inferior hemithorax. 2. Persistent diffuse interstitial prominence likely reflecting interstitial edema. 3. Otherwise, no significant interval change. Assessment & Plan - Diagnosis (1) Acute respiratory failure with hypercapnia Is this a current diagnosis for this admission?: Yes (2) MRSA (methicillin resistant staphylococcus aureus) pneumonia Qualifiers: Laterality: left Is this a current diagnosis for this admission?: Yes (3) Chronic obstructive pulmonary disease with (acute) exacerbation Is this a current diagnosis for this admission?: Yes (4) Chronic atrial fibrillation with rapid ventricular response Is this a current diagnosis for this admission?: Yes (5) Gastric stress ulcer Is this a current diagnosis for this admission?: Yes (6) HTN (hypertension) Qualifiers: Hypertension type: essential hypertension Qualified Code(s): I10 - Essential (primary) hypertension Is this a current diagnosis for this admission?: Yes (7) CAD (coronary artery disease) Qualifiers: Coronary Disease-Associated Artery/Lesion type: unspecified vessel or lesion type [place] vs. transplanted heart: [place] heart Associated angina: without angina Qualified Code(s): I25.10 - Atherosclerotic heart disease of [place] coronary artery without angina pectoris Is this a current diagnosis for this admission?: Yes (8) HLD (hyperlipidemia) Qualifiers: Hyperlipidemia type: pure hypercholesterolemia Qualified Code(s): E78.00 - Pure hypercholesterolemia, unspecified; E78.0 - Pure hypercholesterolemia Is this a current diagnosis for this admission?: Yes (9) S/P CABG (coronary artery bypass graft) Is this a current diagnosis for this admission?: Yes - Time Time Spent with patient: 25-34 minutes Medications reviewed and adjusted accordingly: Yes Anticipated discharge: Other Within: within 24 hours - Inpatient Certification Based on my medical assessment, after consideration of the patient's comorbidities, presenting symptoms, or acuity I expect that the services needed warrant INPATIENT care.: Yes I certify that my determination is in accordance with my understanding of Medicare's requirements for reasonable and necessary INPATIENT services [42 CFR 412.3e].: Yes Medical Necessity: Need Close Monitoring Due to Risk of Patient Decompensation, Need For IV Fluids, Need For Continuous Telemetry Monitoring, Need for Nebulizer Therapy and Monitoring of Response, Need for IV Antibiotics, Risk of Complication if Not Cared For in Hospital Post Hospital Care: D/C or Transfer Summary - possible transfer to LTAC tomorrow. - Plan Summary Plan Summary: Continue current medication management. Follow up on efforts at transfer to LTAC tomorrow.
[2018-11-27] MEDS: ATORVASTATIN CALCIUM 10 MG TABLET NG SCH (21:50)
[2018-11-28] MEDS: PROPOFOL 1,000 MG/100 ML INFUS..BTL IV PRN ×3 (01:54→14:36)
[2018-11-28] MEDS: DILTIAZEM HCL 60 MG TABLET GT SCH ×2 (02:01→09:40)
[2018-11-28 04:11] LABS: ABSOLUTE BASOPHILS # (AUTO) 0.1 10^3/uL (0.0-0.2); ABSOLUTE EOSINOPHILS # (AUTO) 0.1 10^3/uL (0.0-0.6); ABSOLUTE LYMPHOCYTES (AUTO) 1.4 10^3/uL (0.5-4.7); ABSOLUTE MONOCYTES (AUTO) 0.6 10^3/uL (0.1-1.4); ABSOLUTE NEUT (AUTO) 9.9 10^3/uL (1.7-8.2); BASOPHILS % (AUTO) 1.1 % (0-2); EOSINOPHILS % (AUTO) 1.1 % (0-6); HEMATOCRIT 40.9 % (37.9-51.0); HEMOGLOBIN 14.1 g/dL (13.5-17.0); LYMPHOCYTES % (AUTO) 11.2 % (13-45); MEAN CORPUSCULAR HEMOGLOBIN 31.1 pg (27.0-33.4); MEAN CORPUSCULAR HGB CONC 34.6 g/dL (32.0-36.0); MEAN CORPUSCULAR VOLUME 90 fl (80-97); MONOCYTES % (AUTO) 5.3 % (3-13); PLATELET COUNT 260 10^3/uL (150-450); RED BLOOD COUNT 4.55 10^6/uL (4.35-5.55); RED CELL DISTRIBUTION WIDTH 13.3 % (11.5-14.0); SEGMENTED NEUTROPHILS % (AUTO) 81.3 % (42-78); TOTAL CELLS COUNTED % (AUTO) 100 %; WHITE BLOOD COUNT 12.3 10^3/uL (4.0-10.5)
[2018-11-28 04:44] LABS: ANION GAP 7 (5-19)
[2018-11-28 04:53] LABS: BLOOD UREA NITROGEN 19 mg/dL (7-20); CARBON DIOXIDE 25 mmol/L (22-30); CHLORIDE 109 mmol/L (98-107); GLUCOSE 95 mg/dL (75-110); POTASSIUM 4.6 mmol/L (3.6-5.0); SODIUM 141.2 mmol/L (137-145)
[2018-11-28] MEDS: VANCOMYCIN HCL 750 MG in DEXTROSE 5%-WATER 250 ML IV SCH (05:03)
[2018-11-28 05:09] LABS: ARTERIAL BLOOD H2CO3 1.01 mmol/L (1.05-1.35); ARTERIAL BLOOD HCO3 24.8 mmol/L (20-24); ARTERIAL BLOOD O2 SATURATION 98.5 % (94-98); ARTERIAL BLOOD PCO2 33.4 mmHg (35-45); ARTERIAL BLOOD PH 7.49 (7.35-7.45); ARTERIAL BLOOD TOTAL CO2 25.9 mmol/L (23-27)
[2018-11-28 05:11] LABS: ARTERIAL BLOOD FIO2 40%
[2018-11-28] MEDS: ACETYLCYSTEINE 20% SOLN 800 MG/4 ML VIAL.NEB NEB SCH (08:22)
[2018-11-28] MEDS: IPRATROPIUM/ALBUTEROL 0.5-2.5 MG/3 ML AMPUL NEB PRN (08:22)
--- NOTE | 2018-11-28 08:25 | PDOC TRANSFER SUMMARY ---
General Admission Date/PCP: 11/16/18 23:32 DEYSI CONTRERAS Admission Date: 11/16/18 Transfer Date: 11/28/18 Accepting Facility: Other ([facility]) - [facility] in [place], [place] Resuscitation Status: Full Code - Transfer Diagnosis (1) Acute respiratory failure with hypercapnia Is this a current diagnosis for this admission?: Yes (2) MRSA (methicillin resistant staphylococcus aureus) pneumonia Is this a current diagnosis for this admission?: Yes (3) Chronic obstructive pulmonary disease with (acute) exacerbation Is this a current diagnosis for this admission?: Yes (4) Chronic atrial fibrillation with rapid ventricular response Is this a current diagnosis for this admission?: Yes (5) Gastric stress ulcer Is this a current diagnosis for this admission?: Yes (6) HTN (hypertension) Is this a current diagnosis for this admission?: Yes (7) CAD (coronary artery disease) Is this a current diagnosis for this admission?: Yes (8) HLD (hyperlipidemia) Is this a current diagnosis for this admission?: Yes (9) S/P CABG (coronary artery bypass graft) Is this a current diagnosis for this admission?: Yes - Transfer Medications Home Medications: Dabigatran Etexilate Mesylate [Pradaxa 150 mg Capsule] 150 mg PO Q12 11/17/18 Digoxin [Lanoxin 0.25 mg Tablet] 0.25 mg PO DAILY 11/17/18 Diltiazem HCl [Cardizem Cd 120 mg Capsule] 120 mg PO Q12 11/17/18 Docusate Sodium [Colace 100 mg Capsule] 100 mg PO BID 11/17/18 Ipratropium/Albuterol Sulfate [Combivent Respimat 4 gm Mdi] 2 puff IH Q4HP PRN 11/17/18 Oxycodone HCl/Acetaminophen [Oxycodone-Acetaminophen 10-325] 7.5 - 325 mg PO Q6HP PRN MDD 4 11/17/18 Pravastatin Sodium [Pravachol] 40 mg PO QPM 11/17/18 Umeclidinium Brm/Vilanterol Tr [Anoro Ellipta 62.5-25 Mcg INH] 1 puff IH DAILY 11/17/18 Transfer Medications: Current Medications Acetylcysteine (Mucomist 20% Soln 800 Mg/4 Ml) 600 mg NEB RTBID SMITH Stop: 12/18/18 13:59 Last Admin: 11/27/18 19:39 Dose: 600 mg Documented by: Albuterol/Ipratropium (Duoneb 3 Ml Ampul) 3 ml NEB RTQ4HP PRN PRN Reason: SHORTNESS OF BREATH Stop: 12/16/18 23:36 Last Admin: 11/27/18 19:39 Dose: 3 ml Documented by: Atorvastatin Calcium (Lipitor 10 Mg Tablet) 10 mg NG QHS [facility] Stop: 12/17/18 21:59 Last Admin: 11/27/18 21:50 Dose: 10 mg Documented by: Dabigatran (Pradaxa 150 Mg Capsule) 150 mg PO .Q12 [facility] Stop: 12/17/18 13:14 Digoxin (Lanoxin 0.25 Mg Tablet) 0.25 mg NG DAILY [facility] Stop: 12/18/18 09:59 Last Admin: 11/27/18 10:16 Dose: 0.25 mg Documented by: Diltiazem HCl (Cardizem 60 Mg Tablet) 60 mg GT Q6A [facility] Stop: 12/17/18 14:59 Last Admin: 11/28/18 02:01 Dose: 60 mg Documented by: Docusate Sodium (Colace Udc 100 Mg/10 Ml Oral Soln) 100 mg NG Q12 [facility] Stop: 12/17/18 21:59 Last Admin: 11/27/18 10:55 Dose: 100 mg Documented by: Enoxaparin Sodium (Lovenox Inj 40 Mg/0.4 Ml Disp.Syrin) 40 mg SUBCUT DAILY [facility] Stop: 12/17/18 09:59 Last Admin: 11/27/18 10:17 Dose: 40 mg Documented by: Midazolam HCl (Versed Rtu 50 Mg/100 Ml Premix Bag) 50 mg in 100 mls @ 0 mls/hr IV CONTINUOUS PRN; Protocol PRN Reason: THIS MED IS NOT "PRN" Stop: 12/01/18 03:11 Last Admin: 11/27/18 16:09 Dose: 2 mg/hr, 4 mls/hr Documented by: Propofol (Diprivan Rtu 1000 Mg/100 Ml Inf.Bottle) 1,000 mg in 100 mls @ 0 mls/hr IV CONTINUOUS PRN; Protocol PRN Reason: THIS MED IS NOT "PRN" Stop: 12/17/18 03:47 Last Admin: 11/28/18 01:54 Dose: 20 mcg/kg/min, 8.47 mls/hr Documented by: Vancomycin HCl 750 mg/ (Dextrose) 250 mls @ 166.667 mls/hr IV Q8 SMITH Stop: 11/28/18 13:59 Last Admin: 11/28/18 05:03 Dose: 166.7 mls/hr, 166.7 mls/hr Documented by: Sodium Chloride (Nacl 0.9% 1000 Ml Iv Soln) 1,000 mls @ 60 mls/hr IV CONTINUOUS PRN PRN Reason: THIS MED IS NOT "PRN" Stop: 12/23/18 11:23 Last Admin: 11/27/18 16:12 Dose: 60 mls/hr Documented by: Influenza Virus Vaccine Quadrival (Fluarix Adlt Quad Vac 0.5 Ml Syr) 0.5 ml IM .DISCHARGE PRN PRN Reason: THIS MED IS NOT "PRN" Stop: 12/17/18 03:49 Pharmacy Profile Note (Medication Communication Order) 1 each [facility] .NOTICE NR Stop: 12/16/18 23:44 - Allergies Allergies/Adverse Reactions: Penicillins Allergy (Severe, Verified 07/15/16 10:34) turned blue as infant hydrocodone bitartrate [From Vicodin] Allergy (Intermediate, Verified 07/15/16 10:34) N & V acetaminophen [From Tylenol] Allergy (Verified 11/12/17 20:20) aspirin Allergy (Verified 11/12/17 20:20) - Diet/Activity Discharge Diet: Tube Feeding (Comments) - Oxepa formulation, currently at 40ml/hour Hospital Course Hospital Course: Patient was admitted with acute respiratory failure and intubated in field prior to ED arrival. He was found in severe distress and atrial fibrillation with rapid ventricular rate. He was not compliant with his rate control medication including Cardizem, Metoprolol and Digoxin. He was admitted to ICU for further evaluation and management. He was treated with IV Cardizem for a short period with resolution of his rapid ventricular rate. He remain on bronchodilators and antibiotic coverage. His sputum did grew MRSA. He was maintained on IV Vancomycin with discontinuation of all other antibiotic treatment. He was seen i n consultation by Dr. Cosby, eyelet row marker. Despite attempts at weaning patient was not able to complete process and need for upward trend of his supplemental oxygen supply. His complete echocardiogram revealed Left ventricular ejection fraction in excess of 60%. He will be transferred to [facility] in [place], [place] today for further treatment and eventual weaning off ventilation support. Physical Exam Vital Signs: Temp Pulse Resp BP Pulse Ox 98.2 F 93 14 99/69 L 97 11/28/18 06:10 11/28/18 02:00 11/28/18 06:10 11/28/18 06:10 11/28/18 06:10 Intake & Output 11/27/18 11/28/18 11/29/18 06:59 06:59 06:59 Intake Total 3142 2663 Output Total 2580 3020 Balance 562 -357 Weight 72.7 kg 72.6 kg Remain intubated and sedated. ET and OG tubes insitu. Head exam: PRESENT: atraumatic, normocephalic Eye exam: PRESENT: conjunctiva pink, EOMI, PERRLA. ABSENT: pallor, scleral icterus Ear exam: PRESENT: normal external ear exam Respiratory exam: PRESENT: clear to auscultation nelson, decreased breath sounds Cardiovascular exam: PRESENT: Irregular rhythm. ABSENT: diastolic murmur, rubs, systolic murmur GI/Abdominal exam: PRESENT: normal bowel sounds, soft Extremities exam: ABSENT: pedal edema Neurological exam: PRESENT: altered - sedated Skin exam: PRESENT: dry, warm Results Laboratory Results: 11/28/18 03:49 11/28/18 03:49 11/28/18 11/28/18 11/28/18 03:49 03:49 04:57 WBC 12.3 H RBC 4.55 Hgb 14.1 Hct 40.9 MCV 90 MCH 31.1 MCHC 34.6 RDW 13.3 Plt Count 260 Seg Neutrophils % 81.3 H Lymphocytes % 11.2 L Monocytes % 5.3 Eosinophils % 1.1 Basophils % 1.1 Absolute Neutrophils 9.9 H Absolute Lymphocytes 1.4 Absolute Monocytes 0.6 Absolute Eosinophils 0.1 Absolute Basophils 0.1 Carbonic Acid 1.01 L HCO3/H2CO3 Ratio 24:1 ABG pH 7.49 H ABG pCO2 33.4 L ABG pO2 116.0 H ABG HCO3 24.8 H ABG O2 Saturation 98.5 H ABG Base Excess 2.0 FiO2 40% Sodium 141.2 Potassium 4.6 Chloride 109 H Carbon Dioxide 25 Anion Gap 7 BUN 19 Creatinine 0.69 Est GFR ( Amer) > 60 Est GFR (Non-Af Amer) > 60 Glucose 95 Calcium 9.0 Phosphorus 5.0 H Magnesium 2.2 11/16/18 11/17/18 11/17/18 21:30 00:08 00:08 Creatine Kinase 43 L CK-MB (CK-2) Troponin I 0.016 NT-Pro-B Natriuret Pep 2560 H 2850 H 11/17/18 11/17/18 11/17/18 00:08 05:51 05:51 Creatine Kinase 39 L CK-MB (CK-2) 1.69 2.13 Troponin I 0.055 0.144 NT-Pro-B Natriuret Pep 11/17/18 11/17/18 12:13 12:13 Creatine Kinase 41 L CK-MB (CK-2) 2.62 Troponin I 0.103 NT-Pro-B Natriuret Pep Impressions: Head CT 11/16/18 22:30 IMPRESSION: Atrophy with small vessel ischemic change. Negative for acute intracranial abnormality TECHNICAL DOCUMENTATION: Quality ID # 436: Final reports with documentation of one or more dose reduction techniques (e.g., Automated exposure control, adjustment of the mA and/or kV according to patient size, use of iterative reconstruction technique) copyright 2011 [email or web address]- All Rights Reserved KUB X-Ray 11/16/18 23:43 IMPRESSION: Tip of the enteric tube likely in the proximal stomach. copyright 2010 [email or web address]- All Rights Reserved Chest X-Ray 11/27/18 06:00 IMPRESSION: 1. Slightly improving aeration in the right inferior hemithorax. 2. Persistent diffuse interstitial prominence likely reflecting interstitial edema. 3. Otherwise, no significant interval change. Plan Discharge Plan: Transfer to [facility] in [place], [place]
[2018-11-28] MEDS: DIGOXIN 0.25 MG TABLET NG SCH (09:41)
[2018-11-28] MEDS: DOCUSATE SODIUM 100 MG/10 ML UDC NG SCH (09:42)
[2018-11-28] MEDS: ENOXAPARIN SODIUM INJ 40 MG/0.4 ML DISP.SYRIN SUBCUT SCH (09:46)
[2018-11-28] MEDS: NORMAL SALINE 1000 ML 1,000 ML IV PRN (12:32)
[2018-11-28 14:10] VITALS: BP 104/75
== END 2018-11-28 15:53 | DRG 208 ==
LOC: ER 21:19 → EH 23:32 → ICU 11-17 03:24
PROVIDERS: ADMIT Internal Medicine; ATTEND Internal Medicine Geriatric Medicine
PROC: 5A1935Z Respiratory Ventilation, Less than 24 Consecutive Hours (ICD-10-PCS; principal; 2018-11-16)
PROC: 3E0G76Z Introduction of Nutritional Substance into Upper GI, Via Natural or Artificial Opening (ICD-10-PCS; 2018-11-17)
DX: J96.02 Acute respiratory failure with hypercapnia (principal); J15.212 Pneumonia due to Methicillin resistant Staphylococcus aureus; J44.1 Chronic obstructive pulmonary disease with (acute) exacerbation; N17.9 Acute kidney failure, unspecified; E87.2 Acidosis; I48.2 Chronic atrial fibrillation; I11.0 Hypertensive heart disease with heart failure; I50.9 Heart failure, unspecified; J96.01 Acute respiratory failure with hypoxia; I25.10 Atherosclerotic heart disease of native coronary artery without angina pectoris; M19.90 Unspecified osteoarthritis, unspecified site; H26.9 Unspecified cataract; E78.00 Pure hypercholesterolemia, unspecified; I73.9 Peripheral vascular disease, unspecified; K25.9 Gastric ulcer, unspecified as acute or chronic, without hemorrhage or perforation; F17.210 Nicotine dependence, cigarettes, uncomplicated; Z88.6 Allergy status to analgesic agent; Z88.0 Allergy status to penicillin; Z88.8 Allergy status to other drugs, medicaments and biological substances; I25.2 Old myocardial infarction; Z87.01 Personal history of pneumonia (recurrent); Z86.73 Personal history of transient ischemic attack (TIA), and cerebral infarction without residual deficits; Z85.828 Personal history of other malignant neoplasm of skin; Z95.5 Presence of coronary angioplasty implant and graft; Z95.1 Presence of aortocoronary bypass graft; Z91.14 Patient's other noncompliance with medication regimen; Z82.49 Family history of ischemic heart disease and other diseases of the circulatory system; Z79.51 Long term (current) use of inhaled steroids
CPT/HCPCS: 36415; 70450; 71045; 74018; 80048; 80053; 80061; 80076; 80162; 80202; 80307; 81001; 82140; 82150; 82271; 82542; 82550; 82553; 82803; 82962; 83036; 83605; 83690; 83735; 83880; 84100; 84439; 84443; 84484; 85025; 85610; 85730; 86022; 87040; 87070; 87077; 87086; 87186; 87205; 87804; 93005; 93010; 93306; 94002; 94003; 94667; 94668; 96365; 99291; 99292; J1650; J1940; J1956; J2250; J2704; J2930; J3370; J3490; J7030; J7060; J7120; J7620; S0164

== ENCOUNTER → 2019-04-13 | Outpatient (CLI) | payer MEDICARE, MEDICAID ==
--- NOTE | 2019-04-13 15:00 | RADIOLOGY REPORT (SQ) ---
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 Images reviewed with lung, soft tissue and bone windows. Reconstructed coronal and sagittal MPR and MIP images reviewed. All images stored on PACS. All CT scanners at this facility use dose modulation, iterative reconstruction, and/or weight based d osing when appropriate to reduce radiation dose to as low as reasonably achievable (ALARA). [facility]: Dose Right [facility]: CareDose [facility]: Dose Right [facility]: Teradose 4D [facility]: Wireless Toyz CONTRAST TYPE AND DOSE: contrast/concentration: Isovue 350.00 mg/ml; Total Contrast Delivered: 80.0 ml; Total Saline Delivered: 51.0 ml RENAL FUNCTION: Creatinine 0.9 RADIATION DOSE: CT Rad equipment meets quality standard of care and radiation dose reduction techniq ues were employed. CTDIvol: 11.0 mGy. DLP: 366 mGy-cm. . LIMITATIONS: None. FINDINGS: LUNGS AND PLEURA: Stable ground-glass patchy attenuated scattered areas in the lungs, mor e so in the lower lobes, likely represent chronic changes. Mild pleuroparenchymal changes at the lef t lung base, may represent scarring, stable findings. No pneumothorax or pleural effusion. The cent ral airways are clear. HILAR AND MEDIASTINAL STRUCTURES: Stable borderline to mildly prominent mediastinal lymph nodes. HEART AND VASCULAR STRUCTURES: No aneurysm or dissection. No central pulmonary emboli. No pericardi al effusion. HARDWARE: Tracheostomy midline and position, new finding since the prior examination. Prior anterio r median sternotomy and CABG. UPPER ABDOMEN: Stable hypoattenuated small splenic lesion. Calcified small granuloma in the liver a nd spleen, stable findings. Partially visualized gallstones. Splenule, normal anatomic variant. Ga strostomy tube placement since the prior examination, the tube is located in the body of the stomach. Limited exam. THYROID AND OTHER SOFT TISSUES: No masses. No adenopathy. BONES: The osseous structures are stable in appearance. OTHER: No other significant finding. IMPRESSION: 1. Since the previous examination dated 02/27/2018, status post tracheostomy and gastros aftab tube placements. 2. No other significant interval changes. TECHNICAL DOCUMENTATION: JOB ID: [id number] Quality ID # 436: Final reports with documentation of one or more dose reduction techniques (e.g., Au tomated exposure control, adjustment of the mA and/or kV according to patient size, use of iterative reconstruction technique) 2010 [employer]- All Rights Reserved Reading location - IP/workstation name: [email or web address]
== END ==
LOC: RAD 10:43
PROVIDERS: ATTEND Internal Medicine Medical Oncology
DX: C44.92 Squamous cell carcinoma of skin, unspecified (principal); Z95.1 Presence of aortocoronary bypass graft
CPT/HCPCS: 71260; 82565

== ENCOUNTER → 2019-04-19 | Outpatient (CLI) | payer MEDICARE, MEDICAID ==
--- NOTE | 2019-04-20 09:38 | RADIOLOGY REPORT (SQ) ---
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 TECHNIQUE: Blood glucose level was verified. Above dose of FDG was injected intravenously. 2-D seg mented attenuation correction images were obtained from the base of the skull to the midthighs. Nonc ontrast CT images were obtained for attenuation correction and fusion with emission images. CT image s were performed without oral or intravenous contrast and are not sensitive for parenchymal lesions. A series of overlapping emission PET images were obtained. Images reviewed and manipulated at [facility] work station by the radiologist. Images stored on PACS. LIMITATIONS: None. FINDINGS: HEAD AND NECK: No areas of abnormal metabolic activity in the soft tissues of the head and neck. CHEST: There is focal distal esophageal wall thickening along the distal 3rd of the esophagus, with S UV of 3.6. This could indicate minimal residual tumor. There is a 2 x 1.2 cm right peritracheal lymph node level 4R, with SUV of 2.8. No other metabolicall y active mediastinal lymph nodes are identified. ABDOMEN AND PELVIS: No areas of abnormal metabolic activity in the abdomen or pelvis. Expected physi ologic activity is present in the genitourinary system and bowel. PROXIMAL LOWER EXTREMITIES: No areas of abnormal metabolic activity in the soft tissues of the lower extremities. BONES: No abnormal metabolic activity in the visualized skeleton. ADDITIONAL CT FINDINGS: Stable minimal bandlike scarring in the left posterior lung base unchanged si nce CT 02/27/2018. Stones in the gallbladder without CT signs of the acute cholecystitis. Calcified carotid bifurcations. Sternotomy for CABG. Tracheostomy and gastrostomy tube. OTHER: Liver background activity 2.1 SUV. Blood pool background activity 1.6 SUV IMPRESSION: Minimal residual uptake in the distal 3rd of the esophagus Minimal activity in a right paratracheal level 4R mediastinum lymph node TECHNICAL DOCUMENTATION: JOB ID: [id number] [email or web address]- All Rights Reserved Reading location - IP/workstation name: [email or web address]
== END ==
LOC: RAD 17:37
PROVIDERS: ATTEND Internal Medicine Medical Oncology
DX: C15.8 Malignant neoplasm of overlapping sites of esophagus (principal)
CPT/HCPCS: 78815; A9552

== ENCOUNTER 2019-07-21 15:04 | Day surgery (SDC) | payer MEDICARE, MEDICAID ==
[2019-07-21] MEDS ORDERED: ONDANSETRON HCL INJ/PF 4 MG/2 ML SDV ONE (16:11)
[2019-07-21] MEDS ORDERED: FLUMAZENIL INJ 0.5 MG/5 ML VIAL ONE (16:12)
[2019-07-21] MEDS ORDERED: FENTANYL CITRATE INJ/PF 100 MCG/2 ML AMPUL ONE (16:12)
[2019-07-21] MEDS ORDERED: NALOXONE HCL INJ/PF 0.4 MG/1 ML SDV ONE (16:12)
[2019-07-21] MEDS ORDERED: GLUCAGON,HUMAN RECOMB 1 MG INJ ONE (16:13)
[2019-07-21] MEDS ORDERED: EPINEPHRINE INJ 1 MG/10 ML DISP.SYRIN ONE (16:13)
[2019-07-21] MEDS: MIDAZOLAM 2 MG/2 ML INJ ONE ×2 (16:36→16:39)
--- NOTE | 2019-07-21 17:15 | Operative Report ---
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 Distal esophageal mass 2. 3 cm Mirza's mucosa Surgery: Esophagogastroduodenoscopy with biopsy Medications: Versed 2mg Fentanyl 50mcg IV push Tissue removed: Esophageal mass, antral and gastric body biopsy for pathology Procedure: After informed consent obtained from patient, the throat was sprayed with Hurricane and conscious sedation was achieved. The upper endoscope was inserted into the esophagus under direct vision and advanced into the stomach. The duodenum was entered and examined to the second part. Endoscope was then slowly pulled out of the patient as the mucosa was examined into details. Patient tolerated procedure well. Findings Esophagus: There was a 2 cm friable polypoid lesion noted at the distal esophagus about 1 cm from the GE junction and above a 2 cm hiatal hernia. The lesion was at about 38 cm. There was columnar epithelium in the distal 3 cm of the esophagus with the top of the gastric fold at about 40 to 41 cm. Multiple biopsies were taken from the lesion. Antrum: Normal Body: Normal except for a PEG. Fundus: Normal Duodenum first part: Normal Duodenum second part: Normal Plan: Await pathology. Continue omeprazole OPERATION: .
[2019-07-21 18:43] VITALS: BP 127/68
== END 2019-07-21 18:40 | disposition home or self-care (01) ==
LOC: END 15:04
PROVIDERS: ATTEND Internal Medicine Gastroenterology
DX: C15.9 Malignant neoplasm of esophagus, unspecified (principal); K29.50 Unspecified chronic gastritis without bleeding; K22.10 Ulcer of esophagus without bleeding; K22.719 Barrett's esophagus with dysplasia, unspecified
CPT/HCPCS: 43239; 88342 ×2; 88305 ×2; J2250; J3010; J0171; J1610; J2310; J2405; J3490

== ENCOUNTER → 2019-08-11 | Outpatient (CLI) | payer MEDICARE, MEDICAID ==
--- NOTE | 2019-08-12 11:16 | RADIOLOGY REPORT (SQ) ---
EXAM DESCRIPTION: PET CT SKULL/THIGH COMPLETED DATE/TIME: 08/11/2019 9:37 pm REASON FOR STUDY: C15.5 MALIGNANT NEOPLASM OF LOWER THIRD OF ESOPHAGUS C15.5 MALIGNANT NEOPLASM OF LOWER THIRD OF ESOPHAGUS COMPARISON: 04/19/2019 RADIONUCLIDE AND DOSE: 9.91 mCi F18 FDG The route of agent administration: Intravenous FASTING BLOOD SUGAR: 96 mg/dl CONTRAST TYPE AND DOSE: No CT contrast given. TECHNIQUE: Blood glucose level was verified. Above dose of FDG was injected intravenously. 2-D seg mented attenuation correction images were obtained from the base of the skull to the midthighs. Nonc ontrast CT images were obtained for attenuation correction and fusion with emission images. CT image s were performed without oral or intravenous contrast and are not sensitive for parenchymal lesions. A series of overlapping emission PET images were obtained. Images reviewed and manipulated at [facility] work station by the radiologist. Images stored on PACS. LIMITATIONS: None. FINDINGS: HEAD AND NECK: Activity at the skull base and cervical soft tissue which is favored repres ent misregistration artifact from the brain. Symmetric activity at the vocal folds in oropharyngeal space, likely physiologic. No additional areas of asymmetric activity within the head or neck. CHEST: Stable size of the right paratracheal lymph node measuring 12 mm in short axis (series 3, imag e 62) without increased FDG uptake (max SUV 2.2). There is mild focal asymmetric activity within the distal esophagus without clear CT correlate (max SUV 4.4) No new areas of abnormal metabolic activit y within the chest. Tracheostomy tube present. Sternotomy hardware. Evidence of prior CABG. ABDOMEN AND PELVIS: Background liver activity max SUV 2.6. No areas of abnormal metabolic activity in the abdomen or pelvis. Expected physiologic activity is present in the genitourinary system and b owel. Cholelithiasis. Gastrostomy tube present. Aortoiliac atherosclerosis. PROXIMAL LOWER EXTREMITIES: No areas of abnormal metabolic activity in the soft tissues of the lower extremities. BONES: No abnormal metabolic activity in the visualized skeleton. ADDITIONAL CT FINDINGS: No evidence of acute process. Additional chronic findings as above. IMPRESSION: 1. Focal area of mild FDG uptake within the distal esophagus (max SUV 4.4) without opal r CT correlate, moderately suspicious. 2. Stable right paratracheal node without significant increased activity (max SUV 2.2). 3. No new areas of abnormal FDG uptake to suggest distant disease. TECHNICAL DOCUMENTATION: JOB ID: [id number] [employer]- All Rights Reserved Reading location - IP/workstation name: [email or web address]
== END ==
LOC: RAD 14:20
PROVIDERS: ATTEND Internal Medicine
DX: C15.5 Malignant neoplasm of lower third of esophagus (principal)
CPT/HCPCS: 78815; A9552

== ENCOUNTER 2019-08-12 06:04 | Day surgery (SDC) | payer MEDICARE, MEDICAID ==
[~2019-08-12 06:04] MED LIST: CEFAZOLIN SODIUM 1 GM in DEXTROSE 5%-WATER 50 ML IV PRN; RINGERS SOLUTION,LACTATED 1,000 ML IV PRN
[2019-08-12] MEDS ORDERED: DEXAMETHASONE SOD PHOSPHATE INJ 4 MG/1 ML VIAL ONE (06:53)
[2019-08-12] MEDS ORDERED: ONDANSETRON HCL INJ/PF 4 MG/2 ML SDV ONE (06:53)
[2019-08-12] MEDS ORDERED: PROPOFOL INJ 200 MG/20 ML VIAL IV ONE ×2 (06:53)
[2019-08-12] MEDS ORDERED: MIDAZOLAM 2 MG/2 ML INJ ONE (06:53)
[2019-08-12] MEDS ORDERED: FENTANYL CITRATE INJ/PF 100 MCG/2 ML AMPUL ONE (06:53)
[2019-08-12] MEDS ORDERED: ALBUTEROL SULFATE 0.083% NEB 2.5 MG/3 ML AMPUL NEB ONE (07:26)
[2019-08-12] MEDS ORDERED: LIDOCAINE 1%/EPINEPHRINE INJ 20 ML VIAL ONE (07:43)
[2019-08-12] MEDS ORDERED: DIPHENHYDRAMINE HCL 50 MG/ML VIAL IV PRN (08:17)
[2019-08-12] MEDS ORDERED: MEPERIDINE HCL/PF INJ 25 MG/1 ML DISP.SYRIN IV PRN (08:17)
[2019-08-12] MEDS ORDERED: ONDANSETRON HCL INJ/PF 4 MG/2 ML SDV IV PRN (08:17)
[2019-08-12] MEDS ORDERED: FENTANYL CITRATE INJ/PF 100 MCG/2 ML AMPUL IV PRN ×3 (08:17)
[2019-08-12] MEDS ORDERED: MORPHINE SULFATE 10 MG/ML INJ IV PRN (08:17)
[2019-08-12] MEDS ORDERED: LIDOCAINE 1%/EPINEPHRINE INJ 20 ML VIAL INJ ONE (09:47)
--- NOTE | 2019-08-12 09:51 | Discharge Summary ---
Discharge Summary (SDC) - Discharge Final Diagnosis: Locally advanced esophageal carcinoma Date of Surgery: 08/12/19 Discharge Date: 08/12/19 Condition: Fair Treatment or Instructions: Routine port use and care; may use port at any time; return to [place] [facility] in 1 to 2 weeks for postop check. Referrals: DEYSI CONTRERAS MD [Primary Care Provider] - Discharge Diet: As Tolerated Discharge Activity: Activity As Tolerated Home Care Assistance: None Needed Report the Following to Your Physician Immediately: Shortness of Breath, Increase in Pain, Fever over 101 Degrees
--- NOTE | 2019-08-12 09:56 | Operative Report ---
Operative Report DATE OF SURGERY: 08/12/19 PREOPERATIVE DIAGNOSIS: Locally advanced esophageal carcinoma POSTOPERATIVE DIAGNOSIS: Same OPERATION: 1. Placement of left subclavian single-lumen Mqhtax-j-Dwgj catheter into subclavian vein. 2. Interpretation of intraoperative fluoroscopy SURGEON: SUE GRAHAM ANESTHESIA: LMAC TISSUE REMOVED OR ALTERED: None COMPLICATIONS: None ESTIMATED BLOOD LOSS: Scant INTRAOPERATIVE FINDINGS: See below PROCEDURE: The patient was taken to the preop holding area to the main operating room where LMAC anesthesia was induced. Arms were tucked at patient's side, tracheostomy tube, chin tent and out of the field with a 1010 disposable drape. Both chest mcdaniel were prepped and draped in sterile fashion with Betadine. Surgical plan surgical timeout were conducted. Because of the patient's tracheostomy, and copious pulmonary secretions, I elected to place the access into the subclavian vein. We attempted to place the catheter on the right side. The right subclavian area was anesthetized 1% plain lidocaine. 2 attempts were made at cannulating the right subclavian vein but were unsuccessful due to obscure skeletal anatomy, in the absence of venous flash. Therefore the right side was aborted. We now turned our attention to the left chest. The skin was similarly anesthetized in the left subclavian position with 1% plain lidocaine. A adan was made in the skin with a 15 blade, and the needle and wire were successfully advanced into the left subclavian vein without difficulty. The wire was threaded into the deep venous system as directed fluoroscopically. A suitable site for placement of the port was chosen several centimeters below the cystic site on the chest wall. Skin was in the status of 1% plain lidocaine. A 3 cm incision was made on the chest wall, and a port pocket large enough to accommodate a single-chamber port was developed with electrocautery, blunt dissection. The catheter was then turned to the appropriate length, tunnel between the 2 incisions, attached to the port with the plastic ring securing it into place. The port was tucked into the subclavian pocket. Under fluoroscopic guidance, the 9 Vietnamese dilator introducer sheath was threaded over the 0.030 FiberWire, strip away sheath and wire removed, and catheter left in position in the vein. Fluoroscopically there is no kinking of the catheter from the port to its termination point in the superior vena cava. We aspirated the chamber using a Copeland needle and there was adequate aspiration and flush without difficulty. Wounds were closed with 3-0 Vicryl benzoin and Steri-Strips. Patient tolerated the procedure well, taken to recovery in stable condition. Portable chest x-ray pending at time of dictation.
--- NOTE | 2019-08-12 10:26 | RADIOLOGY REPORT (SQ) ---
EXAM DESCRIPTION: FLUORO/CV PLACEMENT; CHEST SINGLE VIEW COMPLETED DATE/TIME: 08/12/2019 10:00 am; 08/12/2019 9:59 am REASON FOR STUDY: PORT A CATH RIGHT C15.5 MALIGNANT NEOPLASM OF LOWER THIRD OF ESOPHAGUS COMPARISON: None. FLUOROSCOPY TIME: 0.1 minutes 5 images saved to PACS. TECHNIQUE: Intra-operative images acquired during surgical procedure to evaluate progress. NUMBER OF IMAGES: 5 LIMITATIONS: None. FINDINGS: Limited images demonstrate evidence of left subclavian based chest port placement. Please see operative report for detailed description. IMPRESSION: IMAGE(S) OBTAINED DURING PROCEDURE. COMMENT: Quality ID [id number]: Final reports for procedures using fluoroscopy that document radiation exp osure indices, or exposure time and number of fluorographic images (if radiation exposure indices are not available) Please consult full operative report of the attending physician for description of the procedure. TECHNICAL DOCUMENTATION: JOB ID: [id number] [employer]- All Rights Reserved Reading location - IP/workstation name: [email or web address]
--- NOTE | 2019-08-12 10:26 | RADIOLOGY REPORT (SQ) ---
EXAM DESCRIPTION: FLUORO/CV PLACEMENT; CHEST SINGLE VIEW COMPLETED DATE/TIME: 08/12/2019 10:00 am; 08/12/2019 9:59 am REASON FOR STUDY: PORT A CATH RIGHT C15.5 MALIGNANT NEOPLASM OF LOWER THIRD OF ESOPHAGUS COMPARISON: None. FLUOROSCOPY TIME: 0.1 minutes 5 images saved to PACS. TECHNIQUE: Intra-operative images acquired during surgical procedure to evaluate progress. NUMBER OF IMAGES: 5 LIMITATIONS: None. FINDINGS: Limited images demonstrate evidence of left subclavian based chest port placement. Please see operative report for detailed description. IMPRESSION: IMAGE(S) OBTAINED DURING PROCEDURE. COMMENT: Quality ID [id number]: Final reports for procedures using fluoroscopy that document radiation exp osure indices, or exposure time and number of fluorographic images (if radiation exposure indices are not available) Please consult full operative report of the attending physician for description of the procedure. TECHNICAL DOCUMENTATION: JOB ID: [id number] [employer]- All Rights Reserved Reading location - IP/workstation name: [email or web address]
--- NOTE | 2019-08-12 10:47 | RADIOLOGY REPORT (SQ) ---
EXAM DESCRIPTION: CHEST SINGLE VIEW COMPLETED DATE/TIME: 08/12/2019 10:17 am REASON FOR STUDY: right ij catheter COMPARISON: 11/27/2018 EXAM PARAMETERS: NUMBER OF VIEWS: One view. TECHNIQUE: Single frontal radiographic view of the chest acquired. RADIATION DOSE: NA LIMITATIONS: None. FINDINGS: LUNGS AND PLEURA: Chronic interstitial opacities without focal consolidation, pleural effu rylan or pneumothorax. MEDIASTINUM AND HILAR STRUCTURES: No masses. Contour normal. HEART AND VASCULAR STRUCTURES: Enlarged cardiac silhouette. Aortic atherosclerosis. BONES: Median sternotomy changes. No acute findings. HARDWARE: Tracheostomy tube overlies upper thoracic trachea. Left approach subclavian central venous catheter with tip at cavoatrial junction pre OTHER: No other significant finding. IMPRESSION: New left subclavian approach port with tip at cavoatrial junction. No pneumothorax. Persistent mild diffuse bilateral interstitial opacities, possibly edema. TECHNICAL DOCUMENTATION: JOB ID: [id number] [employer]- All Rights Reserved Reading location - IP/workstation name: [email or web address]
[2019-08-12 12:02] VITALS: BP 127/72
== END 2019-08-12 11:45 | disposition home or self-care (01) ==
LOC: OROUT 06:04
PROVIDERS: ATTEND Surgery
DX: C15.5 Malignant neoplasm of lower third of esophagus (principal); J44.9 Chronic obstructive pulmonary disease, unspecified; I25.10 Atherosclerotic heart disease of native coronary artery without angina pectoris; I11.9 Hypertensive heart disease without heart failure; F17.210 Nicotine dependence, cigarettes, uncomplicated; I25.2 Old myocardial infarction; Z93.1 Gastrostomy status; Z85.828 Personal history of other malignant neoplasm of skin; Z79.899 Other long term (current) drug therapy
CPT/HCPCS: 36561; 71045; 77001; C1752; C1788; J2250; J0690; J1100; J3010; J3490; J2405; J7060; J2704; A9270; J1642; 532; 78815; A9552

== ENCOUNTER 2019-11-05 09:24 | Inpatient (IN) | payer MEDICARE, MEDICAID ==
[2019-11-05 09:57] LABS: ABSOLUTE EOSINOPHILS # (AUTO) 0.1 10^3/uL (0.0-0.6); ABSOLUTE LYMPHOCYTES (AUTO) 0.6 10^3/uL (0.5-4.7); ABSOLUTE MONOCYTES (AUTO) 0.4 10^3/uL (0.1-1.4); ABSOLUTE NEUT (AUTO) 4.7 10^3/uL (1.7-8.2); BASOPHILS % (AUTO) 0.8 % (0-2); EOSINOPHILS % (AUTO) 1.2 % (0-6); HEMATOCRIT 39.6 % (37.9-51.0); HEMOGLOBIN 13.6 g/dL (13.5-17.0); LYMPHOCYTES % (AUTO) 10.5 % (13-45); MEAN CORPUSCULAR HEMOGLOBIN 33.6 pg (27.0-33.4); MEAN CORPUSCULAR HGB CONC 34.3 g/dL (32.0-36.0); MEAN CORPUSCULAR VOLUME 98 fl (80-97); MONOCYTES % (AUTO) 6.4 % (3-13); PLATELET COUNT 177 10^3/uL (150-450); RED BLOOD COUNT 4.04 10^6/uL (4.35-5.55); RED CELL DISTRIBUTION WIDTH 18.5 % (11.5-14.0); SEGMENTED NEUTROPHILS % (AUTO) 81.1 % (42-78); TOTAL CELLS COUNTED % (AUTO) 100 %; WHITE BLOOD COUNT 5.8 10^3/uL (4.0-10.5)
[2019-11-05] MEDS ORDERED: IPRATROPIUM/ALBUTEROL 0.5-2.5 MG/3 ML AMPUL NEB ONE (10:21)
[2019-11-05] MEDS ORDERED: DILTIAZEM HCL INJ 25 MG/5 ML VIAL IV ONE (10:21)
[2019-11-05 10:26] LABS: ALBUMIN 4.3 g/dL (3.5-5.0); ALKALINE PHOSPHATASE 81 U/L (38-126); ANION GAP 11 (5-19); ASPARTATE AMINO TRANSFERASE 29 U/L (17-59); BILIRUBIN,DIRECT 0.4 mg/dL (0.0-0.4); BILIRUBIN,TOTAL 1.4 mg/dL (0.2-1.3); BLOOD UREA NITROGEN 24 mg/dL (7-20); CALCIUM 9.7 mg/dL (8.4-10.2); CARBON DIOXIDE 27 mmol/L (22-30); CHLORIDE 103 mmol/L (98-107); CREATINE KINASE 56 U/L (55-170); GLUCOSE 111 mg/dL (75-110); POTASSIUM 4.5 mmol/L (3.6-5.0); TOTAL PROTEIN 8.7 g/dL (6.3-8.2)
--- NOTE | 2019-11-05 10:33 | EKG REPORT ---
SEVERITY:- ABNORMAL ECG - ATRIAL FIBRILLATION WITH RAPID V-RATE REPOLARIZATION ABNORMALITY, PROB RATE RELATED LVH : Confirmed by: Saeid Fofana MD 05-Nov-2019 10:32:42
[2019-11-05 10:36] LABS: CREATINE KINASE MB 2.49 ng/mL (<4.55); DIGOXIN < 0.40 ng/mL (0.8-2.0)
--- NOTE | 2019-11-05 10:39 | RADIOLOGY REPORT (SQ) ---
EXAM DESCRIPTION: CHEST SINGLE VIEW COMPLETED DATE/TIME: 11/05/2019 10:04 am REASON FOR STUDY: bed 11 db COMPARISON: 08/12/2019 NUMBER OF VIEWS: One view. TECHNIQUE: Single frontal radiographic view of the chest acquired. LIMITATIONS: None. FINDINGS: LUNGS AND PLEURA: Diffuse interstitial pattern. Small left pleural effusion. No consolid ation. MEDIASTINUM AND HILAR STRUCTURES: Stable. HEART AND VASCULATURE: Cardiac enlargement. Vascular congestion. BONES: No acute findings. HARDWARE: CABG. Left-sided port. Tracheostomy. OTHER: No other significant finding. IMPRESSION: Congestive heart failure. TECHNICAL DOCUMENTATION: JOB ID: [id number] [employer]- All Rights Reserved Reading location - IP/workstation name: [email or web address]
[2019-11-05 10:40] LABS: TROPONIN I 0.055 ng/mL
[2019-11-05] MEDS: DILTIAZEM HCL/D5W 125 MG/125 ML RTUINJ IV PRN (10:43)
[2019-11-05] MEDS ORDERED: DIGOXIN INJ 0.5 MG/2 ML AMPULE IV ONE (11:06)
--- NOTE | 2019-11-05 11:06 | ER Document Report ---
Entered by WOOD MOLINA SCRIBE 11/05/19 1012 Acting as scribe for:TIFFANI MARINO MD ED Respiratory Problem - General Chief Complaint: Shortness Of Breath Stated Complaint: DIFFICULTY BREATHING Time Seen by Provider: 11/05/19 10:05 Primary Care Provider: DEYSI CONTRERAS MD [Primary Care Provider] - Follow up as needed Mode of Arrival: Medic Information source: Patient, Emergency Med Personnel Notes: This 69 year old male patient with A fib on digoxin brought in by EMS via wheelchair presents to the ED today with complaints of shortness of breath that began x1 day ago. Per EMS, the patient was seen x2 days ago for the same chief complaint and were able to suction a mucous plug from patient's trach. Patient stated that he felt better at that time and didn't need to be transported to the ED. EMS reports that they administered 500 mL LR, solumedral, and breathing treatments to the patient. Patient reports an associated productive cough and states that "it takes a little bit for me to get it to come up." Patient states that he does breathing treatments at home and has COPD, but is not O2 dependent. Patient is also on chronic pain management. TRAVEL OUTSIDE OF THE [place] IN LAST 30 DAYS: No - Related Data Allergies/Adverse Reactions: Penicillins Allergy (Severe, Verified 11/05/19 09:25) turned blue as infant acetaminophen [From Tylenol] Allergy (Verified 11/05/19 09:25) aspirin Allergy (Verified 11/05/19 09:25) Past Medical History - General Information source: Patient - Social History Smoking Status: Former Smoker Cigarette use (# per day): No Chew tobacco use (# tins/day): No Smoking Education Provided: No Frequency of alcohol use: None Drug Abuse: None Family History: Reviewed & Not Pertinent, CAD Patient has suicidal ideation: No Patient has homicidal ideation: No - Past Medical History Cardiac Medical History: Reports: Hx Atrial Fibrillation, Hx Congestive Heart Failure, Hx Coronary Artery Disease, Hx Heart Attack - 2009 Pulmonary Medical History: Reports: Hx COPD Malignancy Medical History: Reports Hx Skin Cancer Past Surgical History: Reports: Hx Abdominal Surgery - PEG, Hx Cardiac Catheterization, Hx Coronary Artery Bypass Graft - 11/2011, Hx Coronary Stent - Immunizations Immunizations up to date: Yes Hx Diphtheria, Pertussis, Tetanus Vaccination: No - unk Hx Pneumococcal Vaccination: 10/01/19 Review of Systems - Review of Systems Constitutional: No symptoms reported EENT: No symptoms reported Cardiovascular: No symptoms reported Respiratory: See HPI, Cough, Short of breath, Sputum Gastrointestinal: No symptoms reported Genitourinary: No symptoms reported Male Genitourinary: No symptoms reported Musculoskeletal: No symptoms reported Skin: No symptoms reported Hematologic/Lymphatic: No symptoms reported Neurological/Psychological: No symptoms reported -: Yes All other systems reviewed and negative Physical Exam - Vital signs Vitals: Temp Resp BP Pulse Ox 97.7 F 30 H 117/99 H 99 11/05/19 09:26 11/05/19 09:26 11/05/19 09:26 11/05/19 09:26 Interpretation: Tachycardic, Tachypneic - General General appearance: Alert - HEENT Head: Normocephalic, Atraumatic Eyes: Normal Pupils: PERRL Neck: Other - Tracheostomy noted. Trachea is partially occluded by thick, yellow/truong colored sputum. - Respiratory Respiratory status: Retractions, Tachypnea Chest status: Nontender Breath sounds: Rhonchi - Diffuse, Wheezing - Diffuse Chest palpation: Normal - Cardiovascular Rhythm: Irregularly irregular, Tachycardia Heart sounds: Normal auscultation Murmur: No - Abdominal Inspection: Other - Feeding tube Distension: No distension Bowel sounds: Normal Tenderness: Nontender - Abdomen soft Organomegaly: No organomegaly - Back Back: Normal, Nontender - Extremities General upper extremity: Normal inspection General lower extremity: Normal inspection. No: Edema - No peripheral edema. - Neurological Neuro grossly intact: Yes - Psychological Associated symptoms: Normal affect, Normal mood - Skin Skin Temperature: Warm Skin Moisture: Dry Skin Color: Normal Course - Re-evaluation Re-evalutation: 11/05/19 11:10 Patient's digoxin level was undetectable. He filled a 28-day supply of the medication on 26 days ago. It would appear he is not taking his medication. 11/05/19 12:59 The patient's pulse ox is about 90% on room air, reviewing prior ABGs on oxygen suggest that might be about his baseline. We will get an ABG on room air and then place him on a trach collar to improve his oxygenation. EMS reported a end-tidal CO2 of 29 in route, so he probably will have no problems by adding supplemental oxygen. He remains in a atrial fibrillation, but his rate is down to about 120 now from a high of close to 160 when he came in. He states his breathing is much better after his tracheostomy tube was cleaned out. He does admit that he has not been taking his medication. Chest x-ray looks like congestive heart failure with cardiomegaly, however his sputum was quite thick. His BNP is elevated well above his baseline which also suggests congestive heart failure. He is hypotensive, but this is not an unusual finding for him. The dilemma he presents at this time is remaining in atrial fibrillation with RVR, a little hypoxic, hypotensive, and possibly needing some diuresis, while at the same time needing to maintain Cardizem drip without causing his blood pressure to to fall further. His absolute neutrophil count is 4.7 and does not suggest a bacterial bronchitis. - Vital Signs Vital signs: Temp Pulse Resp BP Pulse Ox 98 F 107 H 24 H 91/70 L 97 11/05/19 12:00 11/05/19 13:43 11/05/19 14:01 11/05/19 14:01 11/05/19 14:01 - Laboratory Result Diagrams: 11/05/19 08:58 11/05/19 08:58 Laboratory results interpreted by me: 11/05/19 11/05/19 11/05/19 08:58 08:58 08:58 RBC 4.04 L MCV 98 H MCH 33.6 H RDW 18.5 H Lymph % (Auto) 10.5 L Seg Neutrophils % 81.1 H Carbonic Acid ABG pH ABG pCO2 ABG pO2 ABG Total CO2 BUN 24 H Glucose 111 H Magnesium 2.4 H Total Bilirubin 1.4 H NT-Pro-B Natriuret Pep Total Protein 8.7 H Urine Protein Urine Urobilinogen Ur Leukocyte Esterase Digoxin < 0.40 L 11/05/19 11/05/19 11/05/19 08:58 13:10 13:17 RBC MCV MCH RDW Lymph % (Auto) Seg Neutrophils % Carbonic Acid 0.96 L ABG pH 7.46 H ABG pCO2 31.8 L ABG pO2 70.5 L ABG Total CO2 22.9 L BUN Glucose Magnesium Total Bilirubin NT-Pro-B Natriuret Pep 7280 H Total Protein Urine Protein 30 H Urine Urobilinogen 2.0 H Ur Leukocyte Esterase TRACE H Digoxin - Diagnostic Test Radiology reviewed: Image reviewed, Reports reviewed - Chest x-ray shows diffuse interstitial pattern without consolidation. There is cardiac enlargement with v ascular congestion. The impression is congestive heart failure. - EKG Interpretation by Me EKG shows normal: Gleason, Intervals, QRS Complexes. abnormal: ST-T Waves - Rate related repolarization abnormality Rate: Tachycardia - 156 Rhythm: A.Fib - Consults Dr. Contreras Time consulted: 13:40 Consulted provider: will see as inpatient Critical Care Note - Critical Care Note Total time excluding time spent on procedures (mins): 45 Discharge - Discharge Clinical Impression: Chronic obstructive pulmonary disease with (acute) exacerbation, Noncompliance with medication regimen, Atrial fibrillation with rapid ventricular response, Cardiomegaly Hypotension Qualifiers: Hypotension type: unspecified hypotension type Qualified Code(s): I95.9 - Hypotension, unspecified Congestive heart failure (CHF) Qualifiers: Heart failure type: unspecified Heart failure chronicity: unspecified Qualified Code(s): I50.9 - Heart failure, unspecified Condition: Fair Disposition: ADMITTED INPATIENT Admitting Provider: Isai Unit Admitted: I[facility]U Referrals: DEYSI CONTRERAS MD [Primary Care Provider] - Follow up as needed Scribe Attestation: 11/05/19 11:08 I personally performed the services described in the documentation, reviewed and edited the documentation which was dictated to the scribe in my presence, and it accurately records my words and actions. I personally performed the services described in the documentation, reviewed and edited the documentation which was dictated to the scribe in my presence, and it accurately records my words and actions.
[2019-11-05] MEDS ORDERED: ALBUTEROL SULFATE 0.083% NEB 2.5 MG/3 ML AMPUL NEB ONE (11:58)
[2019-11-05 13:37] LABS: ARTERIAL BLOOD BASE EXCESS -1.1 mmol/L; ARTERIAL BLOOD FIO2 ROOM AIR; ARTERIAL BLOOD H2CO3 0.96 mmol/L (1.05-1.35); ARTERIAL BLOOD O2 SATURATION 95.1 % (94-98); ARTERIAL BLOOD PCO2 31.8 mmHg (35-45); ARTERIAL BLOOD PH 7.46 (7.35-7.45); ARTERIAL BLOOD PO2 70.5 mmHg (80-100); ARTERIAL BLOOD TOTAL CO2 22.9 mmol/L (23-27)
[2019-11-05 13:44] LABS: APPEARANCE,URINE CLEAR; BILIRUBIN,URINE NEGATIVE (NEGATIVE); COLOR,URINE YELLOW; GLUCOSE, URINE NEGATIVE (NEGATIVE); KETONES,URINE NEGATIVE (NEGATIVE); LEUKOCYTE ESTERASE,URINE TRACE (NEGATIVE); NITRITE,URINE NEGATIVE (NEGATIVE); PROTEIN,URINE 30 mg/dL (NEGATIVE); URINE SPECIFIC GRAVITY 1.024
[2019-11-05] MEDS ORDERED: DIGOXIN 0.05 MG/ML SOLN 60 ML PO ONE (21:08)
[2019-11-05] MEDS ORDERED: LEVALBUTEROL HCL NEB 1.25 MG/3 ML AMPUL NEB PRN (21:09)
[2019-11-05] MEDS: DIGOXIN 0.25 MG TABLET PO SCH (21:27)
[2019-11-05] MEDS: APIXABAN 5 MG TABLET PO SCH (21:28)
[2019-11-06] MEDS: DILTIAZEM HCL/D5W 125 MG/125 ML RTUINJ IV PRN (00:08)
[2019-11-06 05:10] LABS: HEMATOCRIT 32.3 % (37.9-51.0); MEAN CORPUSCULAR HGB CONC 35.3 g/dL (32.0-36.0); MEAN CORPUSCULAR VOLUME 96 fl (80-97); PLATELET COUNT 145 10^3/uL (150-450); RED BLOOD COUNT 3.35 10^6/uL (4.35-5.55); RED CELL DISTRIBUTION WIDTH 18.2 % (11.5-14.0); WHITE BLOOD COUNT 7.3 10^3/uL (4.0-10.5)
[2019-11-06 05:20] LABS: ALBUMIN 3.4 g/dL (3.5-5.0); ALKALINE PHOSPHATASE 62 U/L (38-126); ANION GAP 13 (5-19); ASPARTATE AMINO TRANSFERASE 20 U/L (17-59); BILIRUBIN,DIRECT 0.4 mg/dL (0.0-0.4); BLOOD UREA NITROGEN 24 mg/dL (7-20); CALCIUM 9.1 mg/dL (8.4-10.2); CARBON DIOXIDE 21 mmol/L (22-30); CHLORIDE 104 mmol/L (98-107); GLUCOSE 133 mg/dL (75-110); POTASSIUM 4.5 mmol/L (3.6-5.0); TOTAL PROTEIN 6.7 g/dL (6.3-8.2)
[2019-11-06 05:49] LABS: ABSOLUTE LYMPHOCYTES# (MANUAL) 0.5 10^3/uL (0.5-4.7); ABSOLUTE MONOCYTES # (MANUAL) 0.1 10^3/uL (0.1-1.4); BAND NEUTROPHILS % (MANUAL) 1 % (3-5); BASOPHILS % (MANUAL) 0 % (0-2); EOSINOPHILS % (MANUAL) 0 % (0-6); LYMPHOCYTES % (MANUAL) 7 % (13-45); MONOCYTES % (MANUAL) 2 % (3-13); SEGMENTED NEUTROPHILS % (MAN) 90 % (42-78); TOTAL CELLS COUNTED 100
[2019-11-06 05:50] LABS: ANISOCYTOSIS 2+; OVALOCYTES SLIGHT; PLATELET COMMENT DECREASED; POIKILOCYTOSIS SLIGHT; POLYCHROMASIA SLIGHT; TOXIC GRANULATION SLIGHT
[2019-11-06 05:51] LABS: HEMOGLOBIN 11.4 g/dL (13.5-17.0)
[2019-11-06] MEDS: PANTOPRAZOLE SODIUM 40 MG TABLET.DR PO SCH (09:10)
[2019-11-06] MEDS: APIXABAN 5 MG TABLET PO SCH ×2 (09:10→21:21)
[2019-11-06] MEDS: DIGOXIN 0.25 MG TABLET PO SCH (09:10)
[2019-11-06] MEDS: DILTIAZEM HCL 30 MG TABLET PO SCH ×2 (10:35→17:03)
[2019-11-06] MEDS: LEVOFLOXACIN 500 MG/D5W RTU 500 MG/100 ML RTUPB IV SCH (13:40)
--- NOTE | 2019-11-06 13:49 | PDOC H&P ---
History of Present Illness Admission Date/PCP: 11/05/19 15:12 [facility] Patient complains of: Difficulty with breathing History of Present Illness: RUKHSANA GRAHAM is a 69 year old male patient known to my practice but not compliant with medical follow up and treatment. He presented to the ED with worsening difficulty with breathing. He was seen at home about two days prior to presentation by EMS for similar issue and had tracheal suction through his t racheostomy with improvement in his symptoms. He reported associated coughing and increase secretion through his tracheostomy site. He denied any significant fever or chills. No outbreak of sweating. No chest pain. Patient admitted to medication noncompliance and follow up in the office . He is on chronic pain management and has been able to keep appointment at his pain management clinic. His initial ED evaluation did revealed atrial fibrillation with rapid ventricular rate, subtherapeutic serum digoxin level, hypoxemia on room air, with chest X ray findings including diffuse interstitial lung disease, cardiomegaly and small pleural effusion. He was advised hospitalization for further evaluation and management. Past Medical History Cardiac Medical History: Reports: Atrial Fibrillation, Congestive Heart Failure, Coronary Artery Disease, Myocardial Infarction - 2009 Denies: DVT, Hypertension, Pulmonary Embolism Pulmonary Medical History: Reports: Chronic Obstructive Pulmonary Disease (COPD) Denies: Asthma, Bronchitis, Pneumonia, Sleep Apnea Neurological Medical History: Denies: Seizures Endocrine Medical History: Denies: Diabetes Mellitus Type 1, Diabetes Mellitus Type 2 Malignancy Medical History: Reports: Skin Cancer, Other - Esophageal cancer GI Medical History: Denies: Cirrhosis, Hepatitis Musculoskeltal Medical History: Denies: Arthritis, Gout Skin Medical History: Denies: Eczema, Psoriasis Psychiatric Medical History: Denies: Depression Hematology: Denies: Anemia, Bleeding Tendencies Past Surgical History Past Surgical History: Reports: Cardiac Catheterization, Coronary Artery Bypass Graft - 11/2011, Coronary Stent Social History Smoking Status: Former Smoker Frequency of Alcohol Use: None Hx Recreational Drug Use: No Drugs: None Hx Prescription Drug Abuse: No - Advance Directive Resuscitation Status: Full Code Family History Family History: Reviewed & Not Pertinent, CAD Parental Family History Reviewed: Yes Children Family History Reviewed: Yes Sibling(s) Family History Reviewed.: Yes Medication/Allergy Home Medications: Digoxin [Lanoxin 0.25 mg Tablet] 0.25 mg PO DAILY 11/17/18 Hydromorphone HCl [Dilaudid] 4 mg PO Q6HP PRN 11/05/19 Hydroxyzine Pamoate [Vistaril] 1 - 2 cap PO QHS 11/05/19 Omeprazole 20 mg PO DAILY 11/05/19 Ondansetron HCl [Zofran 8 mg Tablet] 8 mg PO Q8HP PRN 11/05/19 Oxycodone HCl/Acetaminophen [Oxycodone-Acetaminophen 10-325] 1 tab PO Q4HP PRN 11/05/19 Tizanidine HCl 2 mg PO QHS 11/05/19 Allergies/Adverse Reactions: Penicillins Allergy (Severe, Verified 11/05/19 09:25) turned blue as infant acetaminophen [From Tylenol] Allergy (Verified 11/05/19 09:25) aspirin Allergy (Verified 11/05/19 09:) Review of Systems Constitutional: ABSENT: chills, fever(s), headache(s), weight gain, weight loss Eyes: ABSENT: visual disturbances Ears: ABSENT: hearing changes Nose, Mouth, and Throat: PRESENT: as per HPI, other. ABSENT: headache(s), mouth pain, sore throat, vertigo Cardiovascular: PRESENT: dyspnea on exertion Respiratory: PRESENT: cough, dyspnea Gastrointestinal: ABSENT: abdominal pain, constipation, diarrhea, hematemesis, hematochezia, nausea, vomiting Genitourinary: ABSENT: dysuria, hematuria Musculoskeletal: ABSENT: joint swelling Integumentary: ABSENT: rash, wounds Neurological: ABSENT: abnormal gait, abnormal speech, confusion, dizziness, focal weakness, syncope Psychiatric: ABSENT: anxiety, depression, homidical ideation, suicidal ideation Endocrine: ABSENT: cold intolerance, heat intolerance, polydipsia, polyuria Hematologic/Lymphatic: ABSENT: easy bleeding, easy bruising, lymphadenopathy Allergic/Immunologic: ABSENT: seasonal rhinorrhea Physical Exam Vital Signs: Temp Pulse Resp BP Pulse Ox 98.2 F 107 H 25 H 81/58 L 92 11/05/19 15:36 11/05/19 13:43 11/05/19 17:01 11/05/19 17:01 11/05/19 17:01 Intake & Output 11/04/19 11/05/19 11/06/19 06:59 06:59 06:59 Intake Total 501 Output Total 220 Balance 281 Weight 60.328 kg General appearance: PRESENT: mild distress - on supplemental oxygen via nasal cannula and BiPAP support Head exam: PRESENT: atraumatic, normocephalic Eye exam: PRESENT: conjunctiva pink, EOMI, PERRLA. ABSENT: scleral icterus Ear exam: PRESENT: normal external ear exam Mouth exam: PRESENT: dry mucosa Neck exam: PRESENT: full ROM, tracheostomy - with cupious yellowish brown sputum production. ABSENT: carotid bruit, JVD, lymphadenopathy, thyromegaly Respiratory exam: PRESENT: decreased breath sounds - generally, rhonchi, wheezes Cardiovascular exam: PRESENT: irregular rhythm, +S1, +S2. ABSENT: diastolic murmur, rubs, systolic murmur Vascular exam: ABSENT: pallor GI/Abdominal exam: PRESENT: normal bowel sounds, soft, other - PEG tube in situ. ABSENT: distended, guarding, mass, organolmegaly, rebound, tenderness Rectal exam: PRESENT: deferred Extremities exam: ABSENT: pedal edema Musculoskeletal exam: PRESENT: deformity - related to multiple joints onvolvement with arthritis, normal inspection Neurological exam: PRESENT: alert, awake, oriented to person, oriented to place, oriented to time, oriented to situation, CN II-XII grossly intact. ABSENT: motor sensory deficit Psychiatric exam: PRESENT: appropriate affect, normal mood. ABSENT: homicidal ideation, suicidal ideation Skin exam: PRESENT: dry, warm, other - multiple keratotic lesions on scalp and upper extremities Results Laboratory Results: 11/05/19 08:58 11/05/19 08:58 11/05/19 11/05/19 11/05/19 08:58 08:58 08:58 WBC 5.8 RBC 4.04 L Hgb 13.6 Hct 39.6 MCV 98 H MCH 33.6 H MCHC 34.3 RDW 18.5 H Plt Count 177 Seg Neutrophils % 81.1 H Carbonic Acid HCO3/H2CO3 Ratio ABG pH ABG pCO2 ABG pO2 ABG HCO3 ABG O2 Saturation ABG Base Excess FiO2 Sodium 141.4 Potassium 4.5 Chloride 103 Carbon Dioxide 27 Anion Gap 11 BUN 24 H Creatinine 1.02 Est GFR ( Amer) > 60 Glucose 111 H Calcium 9.7 Magnesium 2.4 H Total Bilirubin 1.4 H AST 29 Alkaline Phosphatase 81 Total Protein 8.7 H Albumin 4.3 Urine Color Urine Appearance Urine pH Ur Specific [place] Urine Protein Urine Glucose (UA) Urine Ketones Urine Blood Urine Nitrite Ur Leukocyte Esterase Urine WBC (Auto) Urine RBC (Auto) 11/05/19 11/05/19 13:10 13:17 WBC RBC Hgb Hct MCV MCH MCHC RDW Plt Count Seg Neutrophils % Carbonic Acid 0.96 L HCO3/H2CO3 Ratio 22:1 ABG pH 7.46 H ABG pCO2 31.8 L ABG pO2 70.5 L ABG HCO3 22.0 ABG O2 Saturation 95.1 ABG Base Excess -1.1 FiO2 ROOM AIR Sodium Potassium Chloride Carbon Dioxide Anion Gap BUN Creatinine Est GFR ( Amer) Glucose Calcium Magnesium Total Bilirubin AST Alkaline Phosphatase Total Protein Albumin Urine Color YELLOW Urine Appearance CLEAR Urine pH 5.0 Ur Specific [place] 1.024 Urine Protein 30 H Urine Glucose (UA) NEGATIVE Urine Ketones NEGATIVE Urine Blood NEGATIVE Urine Nitrite NEGATIVE Ur Leukocyte Esterase TRACE H Urine WBC (Auto) 11 Urine RBC (Auto) 1 11/05/19 11/05/19 11/05/19 08:58 08:58 08:58 Creatine Kinase 56 CK-MB (CK-2) 2.49 Troponin I 0.055 NT-Pro-B Natriuret Pep 7280 H 11/05/19 12:03 Creatine Kinase CK-MB (CK-2) Troponin I 0.036 NT-Pro-B Natriuret Pep Impressions: Chest X-Ray 11/05/19 09:46 IMPRESSION: Congestive heart failure. Assessment & Plan - Diagnosis (1) Chronic obstructive pulmonary disease with (acute) exacerbation Is this a current diagnosis for this admission?: Yes Plan: See admitting attending physician orders for details about care plan. (2) Atrial fibrillation with rapid ventricular response Is this a current diagnosis for this admission?: Yes Plan: See admitting attending physician orders for details about care plan. (3) Congestive heart failure (CHF) Qualifiers: Heart failure type: unspecified Heart failure chronicity: unspecified Qualified Code(s): I50.9 - Heart failure, unspecified Is this a current diagnosis for this admission?: Yes (4) Hypotension Qualifiers: Hypotension type: unspecified hypotension type Qualified Code(s): I95.9 - Hypotension, unspecified Is this a current diagnosis for this admission?: Yes Plan: See admitting attending physician orders for details about care plan. (5) Noncompliance with medication regimen Is this a current diagnosis for this admission?: Yes Plan: See admitting attending physician orders for details about care plan. (6) History of malignant neoplasm of esophagus Is this a current diagnosis for this admission?: Yes Plan: See admitting attending physician orders for details about care plan. - Time Time Spent: 50 to 70 Minutes Medications reviewed and adjusted accordingly: Yes Anticipated discharge: Home with Homehealth Within: Other - Inpatient Certification Based on my medical assessment, after consideration of the patient's comorbidities, presenting symptoms, or acuity I expect that the services needed warrant INPATIENT care.: Yes I certify that my determination is in accordance with my understanding of Medicare's requirements for reasonable and necessary INPATIENT services [42 CFR 412.3e].: Yes Medical Necessity: Significant Comorbidiites Make Outpatient Treatment Too Risky, Need Close Monitoring Due to Risk of Patient Decompensation, Need For IV Fluids, Need For Continuous Telemetry Monitoring, Need for Nebulizer Therapy and Monitoring of Response, Need for IV Antibiotics, Risk of Complication if Not Cared For in Hospital, Risk of Diagnosis Which Will Require Inpatient Eval/Care/Monitoring 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
--- NOTE | 2019-11-06 14:02 | PDOC PROGRESS REPORT ---
Subjective Progress Note for:: 11/06/19 Subjective:: Patient reported some improvement in his breathing but coughing and sputum through his tracheostomy persist. No chest pain. His heart rhythm remain irregular and currently fast on case monitor. No nausea, vomiting, or abdominal pain. He reported that he does eat orally but his food is too hard for him to chew presently. Reason For Visit: EXACERBATED COPD, ATRIAL FIBRILLATION WITH RVR Physical Exam Vital Signs: Temp Pulse Resp BP Pulse Ox 97.8 F 119 H 17 102/59 L 99 11/06/19 12:50 11/06/19 12:50 11/06/19 12:50 11/06/19 12:50 11/06/19 12:50 Intake & Output 11/05/19 11/06/19 11/07/19 06:59 06:59 06:59 Intake Total 663 486 Output Total 220 Balance 443 486 Weight 61.4 kg General appearance: PRESENT: mild distress - remain on supplemental oxygen via trach collar, thin - and disheveled Head exam: PRESENT: atraumatic, normocephalic Eye exam: PRESENT: conjunctiva pink, EOMI, PERRLA. ABSENT: scleral icterus Ear exam: PRESENT: normal external ear exam Mouth exam: PRESENT: moist Respiratory exam: PRESENT: decreased breath sounds, rhonchi Cardiovascular exam: PRESENT: irregular rhythm, +S1, +S2. ABSENT: diastolic murmur, rubs, systolic murmur GI/Abdominal exam: PRESENT: normal bowel sounds, soft, other - PEG site okay. ABSENT: distended, guarding, mass, organolmegaly, rebound, tenderness Extremities exam: ABSENT: pedal edema Musculoskeletal exam: PRESENT: deformity - related to multiple joints involvement with arthritis Neurological exam: PRESENT: alert, awake, oriented to person, oriented to place, oriented to time, oriented to situation, CN II-XII grossly intact. ABSENT: motor sensory deficit Psychiatric exam: PRESENT: appropriate affect, normal mood. ABSENT: homicidal ideation, suicidal ideation Skin exam: PRESENT: dry, warm, other - multiple keratotiuc lesions on scalp and upper extremities Results Laboratory Results: 11/06/19 04:31 11/06/19 04:31 11/06/19 11/06/19 04:31 04:31 WBC 7.3 RBC 3.35 L Hgb 11.4 L D Hct 32.3 L MCV 96 MCH 34.0 H MCHC 35.3 RDW 18.2 H Plt Count 145 L Seg Neutrophils % Not Reportable Sodium 137.5 Potassium 4.5 Chloride 104 Carbon Dioxide 21 L Anion Gap 13 BUN 24 H Creatinine 0.79 Est GFR ( Amer) > 60 Glucose 133 H Calcium 9.1 Total Bilirubin 1.0 AST 20 Alkaline Phosphatase 62 Total Protein 6.7 Albumin 3.4 L 11/05/19 11/05/19 11/05/19 08:58 08:58 08:58 Creatine Kinase 56 CK-MB (CK-2) 2.49 Troponin I 0.055 NT-Pro-B Natriuret Pep 7280 H 11/05/19 12:03 Creatine Kinase CK-MB (CK-2) Troponin I 0.036 NT-Pro-B Natriuret Pep Impressions: Chest X-Ray 11/05/19 09:46 IMPRESSION: Congestive heart failure. Assessment & Plan - Diagnosis (1) Chronic obstructive pulmonary disease with (acute) exacerbation Is this a current diagnosis for this admission?: Yes (2) Atrial fibrillation with rapid ventricular response Is this a current diagnosis for this admission?: Yes (3) Congestive heart failure (CHF) Qualifiers: Heart failure type: unspecified Heart failure chronicity: unspecified Qualified Code(s): I50.9 - Heart failure, unspecified Is this a current diagnosis for this admission?: Yes (4) Hypotension Qualifiers: Hypotension type: unspecified hypotension type Qualified Code(s): I95.9 - Hypotension, unspecified Is this a current diagnosis for this admission?: Yes (5) Noncompliance with medication regimen Is this a current diagnosis for this admission?: Yes (6) History of malignant neoplasm of esophagus Is this a current diagnosis for this admission?: Yes - Time Time Spent with patient: 35 or more minutes Level of Care: IMCU Medications reviewed and adjusted accordingly: Yes Anticipated discharge: Home with Homehealth Within: Other - Inpatient Certification Based on my medical assessment, after consideration of the patient's comorbidities, presenting symptoms, or acuity I expect that the services needed warrant INPATIENT care.: Yes I certify that my determination is in accordance with my understanding of Medicare's requirements for reasonable and necessary INPATIENT services [42 CFR 412.3e].: Yes Medical Necessity: Significant Comorbidiites Make Outpatient Treatment Too Risky, Need Close Monitoring Due to Risk of Patient Decompensation, Need For IV Fluids, Need For Continuous Telemetry Monitoring, Need for Nebulizer Therapy and Monitoring of Response, Need for IV Antibiotics, Risk of Complication if Not Cared For in Hospital, Risk of Diagnosis Which Will Require Inpatient Eval/Care/Monitoring 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
[2019-11-06] MEDS: AZTREONAM 1.5 GM in DEXTROSE 5%-WATER 100 ML IV SCH ×2 (15:04→21:21)
[2019-11-07] MEDS: DILTIAZEM HCL 30 MG TABLET PO SCH ×2 (00:01→05:29)
[2019-11-07] MEDS: AZTREONAM 1.5 GM in DEXTROSE 5%-WATER 100 ML IV SCH ×3 (05:29→21:46)
[2019-11-07] MEDS: PANTOPRAZOLE SODIUM 40 MG TABLET.DR PO SCH (05:29)
[2019-11-07] MEDS: DIGOXIN 0.25 MG TABLET PO SCH (09:14)
[2019-11-07] MEDS: APIXABAN 5 MG TABLET PO SCH ×2 (09:14→21:46)
[2019-11-07] MEDS: LEVOFLOXACIN 500 MG/D5W RTU 500 MG/100 ML RTUPB IV SCH (09:15)
--- NOTE | 2019-11-07 10:54 | PDOC PROGRESS REPORT ---
Subjective Progress Note for:: 11/07/19 Subjective:: Patient is currently lying in the bed Denied any complaints Patient have a trach collar Patient heart rate is still remain elevated to 120 range coming down to 150 aft er starting the Cardizem p.o. Patient is also in the digoxin's Patient is already on anticoagulations Reason For Visit: EXACERBATED COPD, ATRIAL FIBRILLATION WITH RVR Physical Exam Vital Signs: Temp Pulse Resp BP Pulse Ox 97.2 F 117 H 20 77/47 L 99 11/07/19 09:05 11/07/19 09:05 11/07/19 09:05 11/07/19 09:05 11/07/19 09:05 Intake & Output 11/06/19 11/07/19 11/08/19 06:59 06:59 06:59 Intake Total 663 1180 100 Output Total 220 1500 Balance 443 -320 100 Weight 61.4 kg 60 kg General appearance: PRESENT: no acute distress, thin Eye exam: PRESENT: PERRLA Mouth exam: PRESENT: neck supple Throat exam: PRESENT: other Additional comments: Tracheostomy site is intact Respiratory exam: PRESENT: decreased breath sounds Cardiovascular exam: PRESENT: irregular rhythm, +S1, +S2, tachycardia GI/Abdominal exam: PRESENT: normal bowel sounds, soft Extremities exam: ABSENT: pedal edema Neurological exam: PRESENT: alert, awake, oriented to person, oriented to place Skin exam: PRESENT: dry Results Laboratory Results: 11/06/19 04:31 11/06/19 04:31 11/05/19 11/05/19 11/05/19 08:58 08:58 08:58 Creatine Kinase 56 CK-MB (CK-2) 2.49 Troponin I 0.055 NT-Pro-B Natriuret Pep 7280 H 11/05/19 12:03 Creatine Kinase CK-MB (CK-2) Troponin I 0.036 NT-Pro-B Natriuret Pep Assessment & Plan - Diagnosis (1) Chronic atrial fibrillation with rapid ventricular response Is this a current diagnosis for this admission?: Yes Plan: Increase the Cardizem 60 mg p.o. every 6 and consider switch to the long-acting 120 mg twice a day Continues the Eliquis Continues to digoxin's (2) Chronic obstructive pulmonary disease with (acute) exacerbation Is this a current diagnosis for this admission?: Yes Plan: Initial Xopenex nebulizer treatments (3) Congestive heart failure (CHF) Qualifiers: Heart failure type: unspecified Heart failure chronicity: unspecified Qualified Code(s): I50.9 - Heart failure, unspecified Is this a current diagnosis for this admission?: Yes Plan: Get the chest x-ray (4) History of malignant neoplasm of esophagus Is this a current diagnosis for this admission?: Yes Plan: Is currently follow outpatients oncology Dr. Osei but not sure whether he fall or not due to the noncompliance (5) History of skin cancer in adulthood Is this a current diagnosis for this admission?: Yes (6) Noncompliance with medication regimen Is this a current diagnosis for this admission?: Yes (7) HTN (hypertension) Qualifiers: Hypertension type: essential hypertension Qualified Code(s): I10 - Ess ential (primary) hypertension Is this a current diagnosis for this admission?: Yes (8) Cardiomegaly Is this a current diagnosis for this admission?: Yes - Time Time Spent with patient: 15-24 minutes Level of Care: IMCU Medications reviewed and adjusted accordingly: Yes Anticipated discharge: Other Within: Other - Plan Summary Plan Summary: Increase the Cardizem's Get a chest x-ray Continue Xopenex nebulizer
[2019-11-07] MEDS: DILTIAZEM HCL 60 MG TABLET PO SCH ×2 (11:06→17:13)
[2019-11-07] MEDS ORDERED: DILTIAZEM HCL 30 MG TABLET PO SCH (12:00)
--- NOTE | 2019-11-07 14:49 | RADIOLOGY REPORT (SQ) ---
EXAM DESCRIPTION: CHEST SINGLE VIEW COMPLETED DATE/TIME: 11/07/2019 10:57 am REASON FOR STUDY: copd/pnemonia COMPARISON: 08/12/2019, 11/05/[address] chest 06/13/2019 EXAM PARAMETERS: NUMBER OF VIEWS: One view. TECHNIQUE: Single frontal radiographic view of the chest acquired. RADIATION DOSE: NA LIMITATIONS: None. FINDINGS: LUNGS AND PLEURA: There is now focal airspace disease in the right mid lung worrisome for pneumonia. No pleural effusions. No pneumothorax. MEDIASTINUM AND HILAR STRUCTURES: No masses. Contour normal. HEART AND VASCULAR STRUCTURES: Stable massive cardiomegaly, old sternotomy and CABG BONES: No acute findings. HARDWARE: Tracheostomy tube tip upper trachea. Left-sided triple-lumen catheter tip superior vena ca va OTHER: No other significant finding. IMPRESSION: Right mid lung consolidation worrisome for pneumonia Stable massive cardiomegaly without pleural effusions or pulmonary edema TECHNICAL DOCUMENTATION: JOB ID: [id number] [employer]- All Rights Reserved Reading location - IP/workstation name: [email or web address]
[2019-11-08] MEDS: DILTIAZEM HCL 60 MG TABLET PO SCH ×3 (02:54→15:38)
[2019-11-08 04:58] LABS: ABSOLUTE BASOPHILS # (AUTO) 0.1 10^3/uL (0.0-0.2); ABSOLUTE EOSINOPHILS # (AUTO) 0.1 10^3/uL (0.0-0.6); ABSOLUTE LYMPHOCYTES (AUTO) 0.5 10^3/uL (0.5-4.7); ABSOLUTE MONOCYTES (AUTO) 0.6 10^3/uL (0.1-1.4); ABSOLUTE NEUT (AUTO) 4.8 10^3/uL (1.7-8.2); BASOPHILS % (AUTO) 0.9 % (0-2); EOSINOPHILS % (AUTO) 2.1 % (0-6); HEMATOCRIT 36.2 % (37.9-51.0); HEMOGLOBIN 12.5 g/dL (13.5-17.0); LYMPHOCYTES % (AUTO) 7.6 % (13-45); MEAN CORPUSCULAR HEMOGLOBIN 33.5 pg (27.0-33.4); MEAN CORPUSCULAR HGB CONC 34.6 g/dL (32.0-36.0); MEAN CORPUSCULAR VOLUME 97 fl (80-97); MONOCYTES % (AUTO) 10.3 % (3-13); PLATELET COUNT 148 10^3/uL (150-450); RED BLOOD COUNT 3.74 10^6/uL (4.35-5.55); RED CELL DISTRIBUTION WIDTH 18.2 % (11.5-14.0); SEGMENTED NEUTROPHILS % (AUTO) 79.1 % (42-78); TOTAL CELLS COUNTED % (AUTO) 100 %; WHITE BLOOD COUNT 6.1 10^3/uL (4.0-10.5)
[2019-11-08 05:14] LABS: ANION GAP 7 (5-19); BLOOD UREA NITROGEN 24 mg/dL (7-20); CARBON DIOXIDE 27 mmol/L (22-30); CHLORIDE 104 mmol/L (98-107); GLUCOSE 78 mg/dL (75-110); POTASSIUM 4.3 mmol/L (3.6-5.0)
[2019-11-08] MEDS: AZTREONAM 1.5 GM in DEXTROSE 5%-WATER 100 ML IV SCH ×3 (06:32→21:20)
[2019-11-08] MEDS: PANTOPRAZOLE SODIUM 40 MG TABLET.DR PO SCH (06:32)
--- NOTE | 2019-11-08 10:23 | PDOC PROGRESS REPORT ---
Subjective Progress Note for:: 11/08/19 Subjective:: Patient is currently doing well Patient is currently on IV antibiotic with sensitive to the organisms Patient is otherwise denied any complaints Reason For Visit: EXACERBATED COPD, ATRIAL FIBRILLATION WITH RVR Physical Exam Vital Signs: Temp Pulse Resp BP Pulse Ox 97.6 F 91 17 122/70 100 11/08/19 08:29 11/08/19 08:29 11/08/19 08:29 11/08/19 08:29 11/08/19 08:29 Intake & Output 11/07/19 11/08/19 11/09/19 06:59 06:59 06:59 Intake Total 1180 1150 Output Total 1500 2550 Balance -320 -1400 Weight 60 kg 59.2 kg General appearance: PRESENT: no acute distress, well-developed, well-nourished Head exam: PRESENT: atraumatic, normocephalic Eye exam: PRESENT: conjunctiva pink, EOMI, PERRLA. ABSENT: scleral icterus Ear exam: PRESENT: normal external ear exam Mouth exam: PRESENT: moist, tongue midline Neck exam: PRESENT: full ROM. ABSENT: carotid bruit, JVD, lymphadenopathy, t hyromegaly Additional comments: Tracheostomy status intact Cardiovascular exam: PRESENT: RRR. ABSENT: diastolic murmur, rubs, systolic murmur Pulses: PRESENT: normal dorsalis pedis pul, +2 pedal pulses bilateral Vascular exam: PRESENT: normal capillary refill GI/Abdominal exam: PRESENT: normal bowel sounds, soft. ABSENT: distended, guarding, mass, organolmegaly, rebound, tenderness Rectal exam: PRESENT: deferred Neurological exam: PRESENT: alert, awake, oriented to person, oriented to place, oriented to time, oriented to situation, CN II-XII grossly intact. ABSENT: motor sensory deficit Psychiatric exam: PRESENT: appropriate affect, normal mood. ABSENT: homicidal ideation, suicidal ideation Skin exam: PRESENT: dry, intact, warm. ABSENT: cyanosis, rash Results Laboratory Results: 11/08/19 04:41 11/08/19 04:41 11/08/19 11/08/19 04:41 04:41 WBC 6.1 RBC 3.74 L Hgb 12.5 L Hct 36.2 L MCV 97 MCH 33.5 H MCHC 34.6 RDW 18.2 H Plt Count 148 L Seg Neutrophils % 79.1 H Sodium 137.5 Potassium 4.3 Chloride 104 Carbon Dioxide 27 Anion Gap 7 BUN 24 H Creatinine 0.96 Est GFR ( Amer) > 60 Glucose 78 Calcium 9.0 11/05/19 11/05/19 11/05/19 08:58 08:58 08:58 Creatine Kinase 56 CK-MB (CK-2) 2.49 Troponin I 0.055 NT-Pro-B Natriuret Pep 7280 H 11/05/19 12:03 Creatine Kinase CK-MB (CK-2) Troponin I 0.036 NT-Pro-B Natriuret Pep Impressions: Chest X-Ray 11/07/19 00:00 IMPRESSION: Right mid lung consolidation worrisome for pneumonia Stable massive cardiomegaly without pleural effusions or pulmonary edema Assessment & Plan - Diagnosis (1) Chronic atrial fibrillation with rapid ventricular response Is this a current diagnosis for this admission?: Yes Plan: Continue the Cardizem 60 mg p.o. every 6 and consider switch to the long-acting 120 mg twice a day Continues the Eliquis Continues to digoxin's (2) Chronic obstructive pulmonary disease with (acute) exacerbation Is this a current diagnosis for this admission?: Yes Plan: Initial Xopenex nebulizer treatments (3) Congestive heart failure (CHF) Qualifiers: Heart failure type: unspecified Heart failure chronicity: unspecified Qualified Code(s): I50.9 - Heart failure, unspecified Is this a current diagnosis for this admission?: Yes Plan: Get the chest x-ray (4) History of malignant neoplasm of esophagus Is this a current diagnosis for this admission?: Yes Plan: Is currently follow outpatients oncology Dr. Osei but not sure whether he fall or not due to the noncompliance (5) History of skin cancer in adulthood Is this a current diagnosis for this admission?: Yes (6) Noncompliance with medication regimen Is this a current diagnosis for this admission?: Yes (7) HTN (hypertension) Qualifiers: Hypertension type: essential hypertension Qualified Code(s): I10 - Essential (primary) hypertension Is this a current diagnosis for this admission?: Yes (8) Cardiomegaly Is this a current diagnosis for this admission?: Yes - Time Time Spent with patient: 15-24 minutes Level of Care: IMCU Medications reviewed and adjusted accordingly: Yes Within: Other - Plan Summary Plan Summary: Continue current medications
[2019-11-08] MEDS: DIGOXIN 0.25 MG TABLET PO SCH (10:30)
[2019-11-08] MEDS: LEVOFLOXACIN 500 MG/D5W RTU 500 MG/100 ML RTUPB IV SCH (10:30)
[2019-11-08] MEDS: APIXABAN 5 MG TABLET PO SCH ×2 (10:30→21:20)
[2019-11-09] MEDS: DILTIAZEM HCL 60 MG TABLET PO SCH ×6 (00:39→23:19)
[2019-11-09 04:42] LABS: ANION GAP 6 (5-19); BLOOD UREA NITROGEN 21 mg/dL (7-20); CARBON DIOXIDE 31 mmol/L (22-30); CHLORIDE 101 mmol/L (98-107); GLUCOSE 113 mg/dL (75-110); POTASSIUM 4.3 mmol/L (3.6-5.0)
[2019-11-09] MEDS: PANTOPRAZOLE SODIUM 40 MG TABLET.DR PO SCH (06:33)
[2019-11-09] MEDS: AZTREONAM 1.5 GM in DEXTROSE 5%-WATER 100 ML IV SCH ×2 (06:33→13:26)
[2019-11-09] MEDS: APIXABAN 5 MG TABLET PO SCH ×2 (09:20→21:28)
[2019-11-09] MEDS: LEVOFLOXACIN 500 MG/D5W RTU 500 MG/100 ML RTUPB IV SCH (10:15)
[2019-11-09] MEDS: DIGOXIN 0.25 MG TABLET PO SCH (13:26)
--- NOTE | 2019-11-09 17:38 | PDOC PROGRESS REPORT ---
Subjective Progress Note for:: 11/09/19 Subjective:: Patient reported improvement in his breathing. No chest pain. No fever or chills. No nausea, vomiting, or abdominal pain. Reason For Visit: EXACERBATED COPD, ATRIAL FIBRILLATION WITH RVR Physical Exam Vital Signs: Temp Pulse Resp BP Pulse Ox 98.1 F 97 18 100/44 L 98 11/09/19 14:57 11/09/19 14:57 11/09/19 14:57 11/09/19 14:57 11/09/19 16:00 Intake & Output 11/08/19 11/09/19 11/10/19 06:59 06:59 06:59 Intake Total 1150 1460 646 Output Total 2550 2630 1225 Balance -1400 -1170 -579 Weight 59.2 kg 60 kg Physical Exam: General appearance: PRESENT: mild distress - remain on supplemental oxygen via trach collar, thin - and disheveled Head exam: PRESENT: atraumatic, normocephalic Eye exam: PRESENT: conjunctiva pink. ABSENT: pallor, scleral icterus Ear exam: PRESENT: normal external ear exam Mouth exam: PRESENT: moist Respiratory exam: PRESENT: decreased breath sounds, minimal end expiratory rhonchi Cardiovascular exam: PRESENT: irregular rhythm, +S1, +S2. ABSENT: diastolic murmur, rubs, systolic murmur GI/Abdominal exam: PRESENT: normal bowel sounds, soft, other - PEG site okay. ABSENT: distended, guarding, mass, organomegaly, rebound, tenderness Extremities exam: ABSENT: pedal edema Musculoskeletal exam: PRESENT: deformity - related to multiple joints involvement with arthritis Neurological exam: PRESENT: alert, awake, oriented to person, oriented to place, oriented to time, oriented to situation, CN II-XII grossly intact. ABSENT: motor sensory deficit Psychiatric exam: PRESENT: appropriate affect, normal mood. ABSENT: homicidal ideation, suicidal ideation Skin exam: PRESENT: dry, warm, other - multiple keratotic lesions on scalp and upper extremities Results Laboratory Results: 11/08/19 04:41 11/09/19 04:17 11/09/19 04:17 Sodium 137.6 Potassium 4.3 Chloride 101 Carbon Dioxide 31 H Anion Gap 6 BUN 21 H Creatinine 0.95 Est GFR ( Amer) > 60 Glucose 113 H Calcium 9.0 11/05/19 10:55 Tracheal Aspirate Gram Stain - Final 11/05/19 10:55 Tracheal Aspirate Sputum Culture - Final Klebsiella Pneumoniae Providencia Rettgeri Acinetobacter Baumannii/Haem Streptococcus Pneumoniae Greatly Reduced Normal Gris 11/05/19 11/05/19 11/05/19 08:58 08:58 08:58 Creatine Kinase 56 CK-MB (CK-2) 2.49 Troponin I 0.055 NT-Pro-B Natriuret Pep 7280 H 11/05/19 12:03 Creatine Kinase CK-MB (CK-2) Troponin I 0.036 NT-Pro-B Natriuret Pep Impressions: Chest X-Ray 11/07/19 00:00 IMPRESSION: Right mid lung consolidation worrisome for pneumonia Stable massive cardiomegaly without pleural effusions or pulmonary edema Assessment & Plan - Diagnosis (1) Chronic obstructive pulmonary disease with (acute) exacerbation Is this a current diagnosis for this admission?: Yes (2) Atrial fibrillation with rapid ventricular response Is this a current diagnosis for this admission?: Yes (3) Congestive heart failure (CHF) Qualifiers: Heart failure type: unspecified Heart failure chronicity: unspecified Qualified Code(s): I50.9 - Heart failure, unspecified Is this a current diagnosis for this admission?: Yes (4) Hypotension Qualifiers: Hypotension type: unspecified hypotension type Qualified Code(s): I95.9 - Hypotension, unspecified Is this a current diagnosis for this admission?: Yes (5) Noncompliance with medication regimen Is this a current diagnosis for this admission?: Yes (6) History of malignant neoplasm of esophagus Is this a current diagnosis for this admission?: Yes - Time Time Spent with patient: 25-34 minutes Level of Care: IMCU Medications reviewed and adjusted accordingly: Yes Anticipated discharge: Home with Homehealth Within: Other - Inpatient Certification Based on my medical assessment, after consideration of the patient's comor bidities, presenting symptoms, or acuity I expect that the services needed warrant INPATIENT care.: Yes I certify that my determination is in accordance with my understanding of Medicare's requirements for reasonable and necessary INPATIENT services [42 CFR 412.3e].: Yes Medical Necessity: Significant Comorbidiites Make Outpatient Treatment Too Risky, Need Close Monitoring Due to Risk of Patient Decompensation, Need For IV Fluids, Need For Continuous Telemetry Monitoring, Need for Neurological Checks, Need for IV Antibiotics, Risk of Complication if Not Cared For in Hospital, Risk of Diagnosis Which Will Require Inpatient Eval/Care/Monitoring 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 Start on Levofloxacin 500 mg p.o daily.
[2019-11-10 05:00] LABS: ABSOLUTE BASOPHILS # (AUTO) 0.1 10^3/uL (0.0-0.2); ABSOLUTE EOSINOPHILS # (AUTO) 0.2 10^3/uL (0.0-0.6); ABSOLUTE LYMPHOCYTES (AUTO) 0.7 10^3/uL (0.5-4.7); ABSOLUTE MONOCYTES (AUTO) 0.8 10^3/uL (0.1-1.4); ABSOLUTE NEUT (AUTO) 4.2 10^3/uL (1.7-8.2); EOSINOPHILS % (AUTO) 2.7 % (0-6); HEMATOCRIT 37.7 % (37.9-51.0); HEMOGLOBIN 13.1 g/dL (13.5-17.0); LYMPHOCYTES % (AUTO) 11.2 % (13-45); MEAN CORPUSCULAR HEMOGLOBIN 33.3 pg (27.0-33.4); MEAN CORPUSCULAR HGB CONC 34.7 g/dL (32.0-36.0); MEAN CORPUSCULAR VOLUME 96 fl (80-97); MONOCYTES % (AUTO) 13.8 % (3-13); PLATELET COUNT 161 10^3/uL (150-450); RED BLOOD COUNT 3.93 10^6/uL (4.35-5.55); RED CELL DISTRIBUTION WIDTH 17.3 % (11.5-14.0); SEGMENTED NEUTROPHILS % (AUTO) 71.3 % (42-78); TOTAL CELLS COUNTED % (AUTO) 100 %; WHITE BLOOD COUNT 5.9 10^3/uL (4.0-10.5)
[2019-11-10 05:24] LABS: ANION GAP 7 (5-19); BLOOD UREA NITROGEN 19 mg/dL (7-20); CALCIUM 8.9 mg/dL (8.4-10.2); CARBON DIOXIDE 27 mmol/L (22-30); CHLORIDE 104 mmol/L (98-107); DIGOXIN 0.79 ng/mL (0.8-2.0); GLUCOSE 89 mg/dL (75-110); POTASSIUM 4.4 mmol/L (3.6-5.0)
[2019-11-10] MEDS: DILTIAZEM HCL 60 MG TABLET PO SCH ×4 (05:36→17:19)
[2019-11-10] MEDS: PANTOPRAZOLE SODIUM 40 MG TABLET.DR PO SCH (05:36)
[2019-11-10] MEDS: DIGOXIN 0.25 MG TABLET PO SCH (09:28)
[2019-11-10] MEDS: APIXABAN 5 MG TABLET PO SCH ×2 (09:28→21:47)
[2019-11-10] MEDS: LEVOFLOXACIN 500 MG TABLET PO SCH (09:28)
[2019-11-11] MEDS: DILTIAZEM HCL 60 MG TABLET PO SCH ×3 (06:20→18:51)
[2019-11-11] MEDS: PANTOPRAZOLE SODIUM 40 MG TABLET.DR PO SCH (06:20)
[2019-11-11] MEDS: APIXABAN 5 MG TABLET PO SCH ×2 (10:30→21:48)
[2019-11-11] MEDS: LEVOFLOXACIN 500 MG TABLET PO SCH (10:30)
[2019-11-11] MEDS: DIGOXIN 0.25 MG TABLET PO SCH (10:30)
--- NOTE | 2019-11-11 18:42 | PDOC PROGRESS REPORT ---
Subjective Progress Note for:: 11/10/19 Subjective:: Patient denied any chest pain. Breathing is better but remain on trach tent supplemental oxygen. No fever or chills. No nausea, vomiting, or abdominal pain. Reason For Visit: EXACERBATED COPD, ATRIAL FIBRILLATION WITH RVR Physical Exam Vital Signs: Temp Pulse Resp BP Pulse Ox 98.3 F 48 L 20 109/49 L 97 11/10/19 16:43 11/10/19 16:43 11/10/19 16:43 11/10/19 16:43 11/10/19 17:15 Intake & Output 11/09/19 11/10/19 11/11/19 06:59 06:59 06:59 Intake Total 1460 764 812 Output Total 2630 2800 800 Balance -0 -2035 12 Weight 60 kg 60.5 kg General appearance: PRESENT: no acute distress, disheveled, thin Head exam: PRESENT: atraumatic, normocephalic Eye exam: PRESENT: conjunctiva pink. ABSENT: scleral icterus Ear exam: PRESENT: normal external ear exam Mouth exam: PRESENT: moist Neck exam: PRESENT: tracheostomy Respiratory exam: PRESENT: decreased breath sounds - at lung bases Cardiovascular exam: PRESENT: irregular rhythm, +S1, +S2. ABSENT: diastolic murmur, systolic murmur Vascular exam: ABSENT: pallor GI/Abdominal exam: PRESENT: normal bowel sounds, soft, other - PEG site okay. ABSENT: distended, guarding, mass, organolmegaly, rebound, tenderness Extremities exam: ABSENT: pedal edema Neurological exam: PRESENT: alert, awake Psychiatric exam: PRESENT: appropriate affect, normal mood. ABSENT: homicidal ideation, suicidal ideation Skin exam: PRESENT: dry, warm Results Laboratory Results: 11/10/19 04:41 11/10/19 04:41 11/10/19 11/10/19 04:41 04:41 WBC 5.9 RBC 3.93 L Hgb 13.1 L Hct 37.7 L MCV 96 MCH 33.3 MCHC 34.7 RDW 17.3 H Plt Count 161 Seg Neutrophils % 71.3 Sodium 137.7 Potassium 4.4 Chloride 104 Carbon Dioxide 27 Anion Gap 7 BUN 19 Creatinine 0.87 Est GFR ( Amer) > 60 Glucose 89 Calcium 8.9 11/05/19 10:50 Blood Blood Culture - Final NO GROWTH IN 5 DAYS 11/05/19 10:00 Blood Blood Culture - Final NO GROWTH IN 5 DAYS 11/05/19 11/05/19 11/05/19 08:58 08:58 08:58 Creatine Kinase 56 CK-MB (CK-2) 2.49 Troponin I 0.055 NT-Pro-B Natriuret Pep 7280 H 11/05/19 11/10/19 12:03 04:41 Creatine Kinase CK-MB (CK-2) Troponin I 0.036 NT-Pro-B Natriuret Pep 5630 H Impressions: Chest X-Ray 11/07/19 00:00 IMPRESSION: Right mid lung consolidation worrisome for pneumonia Stable massive cardiomegaly without pleural effusions or pulmonary edema Assessment & Plan - Diagnosis (1) Chronic obstructive pulmonary disease with (acute) exacerbation Is this a current diagnosis for this admission?: Yes (2) Atrial fibrillation with rapid ventricular response Is this a current diagnosis for this admission?: Yes (3) Congestive heart failure (CHF) Qualifiers: Heart failure type: unspecified Heart failure chronicity: unspecified Qualified Code(s): I50.9 - Heart failure, unspecified Is this a current diagnosis for this admission?: Yes (4) Hypotension Qualifiers: Hypotension type: unspecified hypotension type Qualified Code(s): I95.9 - Hypotension, unspecified Is this a current diagnosis for this admission?: Yes (5) Noncompliance with medication regimen Is this a current diagnosis for this admission?: Yes (6) History of malignant neoplasm of esophagus Is this a current diagnosis for this admission?: Yes - Time Time Spent with patient: 35 or more minutes Level of Care: IMCU Medications reviewed and adjusted accordingly: Yes Anticipated discharge: Home with Homehealth Within: Other - Inpatient Certification Based on my medical assessment, after consideration of the patient's comorbidities, presenting symptoms, or acuity I expect that the services needed warrant INPATIENT care.: Yes I certify that my determination is in accordance with my understanding of Medicare's requirements for reasonable and necessary INPATIENT services [42 CFR 412.3e].: Yes Medical Necessity: Significant Comorbidiites Make Outpatient Treatment Too Risky, Need Close Monitoring Due to Risk of Patient Decompensation, Need For Continuous Telemetry Monitoring, Need for Nebulizer Therapy and Monitoring of R esponse, Risk of Complication if Not Cared For in Hospital, Risk of Diagnosis Which Will Require Inpatient Eval/Care/Monitoring Post Hospital 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 Adjust Cardizem dose as blood pressure allows. Obtain complete echocardiogram.
--- NOTE | 2019-11-11 18:48 | PDOC PROGRESS REPORT ---
Subjective Progress Note for:: 11/11/19 Subjective:: Patient denied any chest pain or difficulty with breathing. He remain on trach tent supplemental oxygen. No fever or chills. No nausea, vomiting, or abdominal pain. Reason For Visit: EXACERBATED COPD, ATRIAL FIBRILLATION WITH RVR Physical Exam Vital Signs: Temp Pulse Resp BP Pulse Ox 98.5 F 107 H 18 93/62 L 99 11/11/19 16:41 11/11/19 16:41 11/11/19 16:41 11/11/19 16:41 11/11/19 16:41 Intake & Output 11/10/19 11/11/19 11/12/19 06:59 06:59 06:59 Intake Total 764 1072 980 Output Total 2800 1475 825 Balance -2036 -403 155 Weight 60.5 kg 58.8 kg Physical Exam: General appearance: PRESENT: no acute distress, disheveled, thin Head exam: PRESENT: atraumatic, normocephalic Eye exam: PRESENT: conjunctiva pink. ABSENT: pallor, scleral icterus Ear exam: PRESENT: normal external ear exam Mouth exam: PRESENT: moist Neck exam: PRESENT: tracheostomy Respiratory exam: PRESENT: decreased breath sounds - at lung bases Cardiovascular exam: PRESENT: irregular rhythm, +S1, +S2. ABSENT: diastolic murmur, systolic murmur GI/Abdominal exam: PRESENT: normal bowel sounds, soft, other - PEG site okay. ABSENT: distended, guarding, mass, organomegaly, rebound, tenderness Extremities exam: ABSENT: pedal edema Neurological exam: PRESENT: alert, awake Psychiatric exam: PRESENT: appropriate affect, normal mood. ABSENT: homicidal ideation, suicidal ideation Skin exam: PRESENT: dry, warm Results Laboratory Results: 11/10/19 04:41 11/10/19 04:41 11/05/19 11/05/19 11/05/19 08:58 08:58 08:58 Creatine Kinase 56 CK-MB (CK-2) 2.49 Troponin I 0.055 NT-Pro-B Natriuret Pep 7280 H 11/05/19 11/10/19 12:03 04:41 Creatine Kinase CK-MB (CK-2) Troponin I 0.036 NT-Pro-B Natriuret Pep 5630 H Impressions: Chest X-Ray 11/07/19 00:00 IMPRESSION: Right mid lung consolidation worrisome for pneumonia Stable massive cardiomegaly without pleural effusions or pulmonary edema Assessment & Plan - Diagnosis (1) Chronic obstructive pulmonary disease with (acute) exacerbation Is this a current diagnosis for this admission?: Yes (2) Atrial fibrillation with rapid ventricular response Is this a current diagnosis for this admission?: Yes (3) Congestive heart failure (CHF) Qualifiers: Heart failure type: unspecified Heart failure chronicity: unspecified Qualified Code(s): I50.9 - Heart failure, unspecified Is this a current diagnosis for this admission?: Yes (4) Hypotension Qualifiers: Hypotension type: unspecified hypotension type Qualified Code(s): I95.9 - Hypotension, unspecified Is this a current diagnosis for this admission?: Yes (5) Noncompliance with medication regimen Is this a current diagnosis for this admission?: Yes (6) History of malignant neoplasm of esophagus Is this a current diagnosis for this admission?: Yes - Time Time Spent with patient: 25-34 minutes Level of Care: IMCU Medications reviewed and adjusted accordingly: Yes Anticipated discharge: Home with Homehealth Within: Other - Inpatient Certification Based on my medical assessment, after consideration of the patient's comorbidities, presenting symptoms, or acuity I expect that the services needed warrant INPATIENT care.: Yes I certify that my determination is in accordance with my understanding of Medicare's requirements for reasonable and necessary INPATIENT services [42 CFR 412.3e].: Yes Medical Necessity: Significant Comorbidiites Make Outpatient Treatment Too Risky, Need Close Monitoring Due to Risk of Patient Decompensation, Need For Continuous Telemetry Monitoring, Risk of Complication if Not Cared For in Hospital, Risk of Diagnosis Which Will Require Inpatient Eval/Care/Monitoring Post Hospital Care: D/C [employer] Documentation - Plan Summary Plan Summary: Give Digoxin 0.25 mg IV x 1 dose. Continue current medication management. Follow up on requested echocardiogram.
[2019-11-11] MEDS ORDERED: DIGOXIN INJ 0.5 MG/2 ML AMPULE IV ONE (19:15)
[2019-11-12] MEDS: DILTIAZEM HCL 60 MG TABLET PO SCH ×4 (00:03→17:19)
[2019-11-12] MEDS: PANTOPRAZOLE SODIUM 40 MG TABLET.DR PO SCH (05:42)
[2019-11-12] MEDS: APIXABAN 5 MG TABLET PO SCH ×2 (09:12→21:12)
[2019-11-12] MEDS: LEVOFLOXACIN 500 MG TABLET PO SCH (09:12)
[2019-11-12] MEDS: DIGOXIN 0.25 MG TABLET PO SCH (09:12)
--- NOTE | 2019-11-12 19:20 | PDOC PROGRESS REPORT ---
Subjective Progress Note for:: 11/12/19 Subjective:: Patient denied any chest pain or difficulty with breathing. No fever or chills. No nausea, vomiting, or abdominal pain. Reason For Visit: EXACERBATED COPD, ATRIAL FIBRILLATION WITH RVR Physical Exam Vital Signs: Temp Pulse Resp BP Pulse Ox 98.0 F 70 17 97/60 L 97 11/12/19 15:32 11/12/19 15:32 11/12/19 15:32 11/12/19 15:32 11/12/19 16:12 Intake & Output 11/11/19 11/12/19 11/13/19 06:59 06:59 06:59 Intake Total 1072 1480 720 Output Total 1475 1925 500 Balance -403 -445 220 Weight 58.8 kg 57.7 kg Physical Exam: General appearance: PRESENT: no acute distress, disheveled, thin Head exam: PRESENT: atraumatic, normocephalic Eye exam: PRESENT: conjunctiva pink. ABSENT: pallor, scleral icterus Ear exam: PRESENT: normal external ear exam Mouth exam: PRESENT: moist Neck exam: PRESENT: tracheostomy with oxygen tent in use Respiratory exam: PRESENT: decreased breath sounds - at lung bases Cardiovascular exam: PRESENT: irregular rhythm, +S1, +S2. ABSENT: diastolic murmur, systolic murmur GI/Abdominal exam: PRESENT: normal bowel sounds, soft, other - PEG site okay. ABSENT: distended, guarding, mass, organomegaly, rebound, tenderness Extremities exam: ABSENT: pedal edema Neurological exam: PRESENT: alert, awake Psychiatric exam: PRESENT: appropriate affect, normal mood. ABSENT: homicidal ideation, suicidal ideation Skin exam: PRESENT: dry, warm Results Laboratory Results: 11/10/19 04:41 11/10/19 04:41 11/05/19 11/05/19 11/05/19 08:58 08:58 08:58 Creatine Kinase 56 CK-MB (CK-2) 2.49 Troponin I 0.055 NT-Pro-B Natriuret Pep 7280 H 11/05/19 11/10/19 12:03 04:41 Creatine Kinase CK-MB (CK-2) Troponin I 0.036 NT-Pro-B Natriuret Pep 5630 H Impressions: Chest X-Ray 11/07/19 00:00 IMPRESSION: Right mid lung consolidation worrisome for pneumonia Stable massive cardiomegaly without pleural effusions or pulmonary edema Assessment & Plan - Diagnosis (1) Chronic obstructive pulmonary disease with (acute) exacerbation Is this a current diagnosis for this admission?: Yes (2) Atrial fibrillation with rapid ventricular response Is this a current diagnosis for this admission?: Yes (3) Congestive heart failure (CHF) Qualifiers: Heart failure type: unspecified Heart failure chronicity: unspecified Qualified Code(s): I50.9 - Heart failure, unspecified Is this a current diagnosis for this admission?: Yes (4) Hypotension Qualifiers: Hypotension type: unspecified hypotension type Qualified Code(s): I95.9 - Hypotension, unspecified Is this a current diagnosis for this admission?: Yes (5) Noncompliance with medication regimen Is this a current diagnosis for this admission?: Yes (6) History of malignant neoplasm of esophagus Is this a current diagnosis for this admission?: Yes - Time Time Spent with patient: 25-34 minutes Level of Care: IMCU Medications reviewed and adjusted accordingly: Yes Anticipated discharge: Home with Homehealth Within: Other - Inpatient Certification Based on my medical assessment, after consideration of the patient's comorbidities, presenting symptoms, or acuity I expect that the services needed warrant INPATIENT care.: Yes I certify that my determination is in accordance with my understanding of Medicare's requirements for reasonable and necessary INPATIENT services [42 CFR 412.3e].: Yes Medical Necessity: Significant Comorbidiites Make Outpatient Treatment Too Risk y, Need Close Monitoring Due to Risk of Patient Decompensation, Need For Continuous Telemetry Monitoring, Need for Nebulizer Therapy and Monitoring of Response, Risk of Complication if Not Cared For in Hospital, Risk of Diagnosis Which Will Require Inpatient Eval/Care/Monitoring 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 Start on Cardizem CD 120 mg po daily. Follow up on echocardiogram findings.
--- NOTE | 2019-11-12 21:45 | XCELERA REPORT ---
[address] [address] Transthoracic Echocardiogram Report Name: RUKHSANA GRAHAM Age: 69 yrs Gender: Male : 1950 Patient Status: Inpatient Patient Location: [address] [place], [place] [address] Study Date: 11/11/2019 07:13 PM Height: 69 in Weight: 133 lb BSA: 1.7 m2 Procedure: A two-dimensional transthoracic echocardiogram with color flow and Doppler was performed in limited views only. Study Quality: Fair. Reason For Study: Difficulty with breathing ( SHORTNESS OF BREATH) History: Shortness of breath. Ordering Physician: DEYSI CONTRERAS Performed By: Sharyn Collins Interpretation Summary The left ventricle is mildly dilated. There is normal left ventricular wall thickness. LV EF is 20% Left ventricular systolic function is severely reduced. There is akineia of the apical lateral and apical anterior mcdaniel.The rest of the LV mcdaniel are severely hypokinetic.Cannot exclude a non mobile clot in the apical lateral and apical anterior mcdaniel. No ASD ,PFO or VSD seen. The right ventricle is normal in size and function. The right atrium is normal. The left atrium is moderately dilated. There is no evidence of mitral valve prolapse. There is no vegetation seen on the mitral valve. There is no mitral valve stenosis. There is a trace amount of mitral regurgitation There is no aortic valvular vegetation. There is no aortic valve stenosis There is aortic sclerosis without aortic stenosis. The aortic valve is mildly calcified There is no LVOT obstruction. There is a mild to moderate amount of aortic regurgitation There is no tricuspid stenosis. There is a mild amount of tricuspid regurgitation There is moderate pulmonary hypertension by echo RVSP is 50 to 55 mm of Hg , with RA mean of 15 to 20. There is no pulmonic valvular stenosis. There is a mild amount of pulmonic regurgitation The aortic root is normal size. The inferior vena cava appeared dilated and decreased < 50% with respiration (RAP 15-20 mmHg) There is no pericardial effusion. Above findings discussed with by telephone.. MMode/2D Measurements & Calculations RVDd: 2.6 cm LVIDd: 4.6 cm FS: 8.5 % Ao root diam: 2.9 cm IVSd: 1.0 cm LVIDs: 4.2 cm EDV(Teich): Ao root area: LVPWd: 1.0 cm 98.3 ml 6.5 cm2 ESV(Teich): LA dimension: 4.7 cm 79.7 ml EF(Teich): 18.9 % LVLd ap4: 8.0 cm SV(MOD-sp4): EDV(MOD-sp4): 53.0 ml 138.0 ml LVLs ap4: 6.9 cm ESV(MOD-sp4): 85.0 ml EF(MOD-sp4): 38.4 % Doppler Measurements & Calculations MV E max placido: MV P1/2t max placido: Ao V2 max: AI max placido: 105.8 cm/sec 153.4 cm/sec 169.7 cm/sec 401.3 cm/sec MV P1/2t: 69.9 msec Ao max PG: AI max PG: MVA(P1/2t): 3.1 cm2 11.5 mmHg 65.4 mmHg MV dec slope: AI dec slope: 642.5 cm/sec2 235.1 cm/sec2 MV dec time: AI P1/2t: 0.17 sec 499.9 msec LV V1 max PG: PA V2 max: PI end-d placido: TR max placido: 4.4 mmHg 107.2 cm/sec 114.0 cm/sec 297.3 cm/sec LV V1 max: PA max P.6 mmHg TR max P.6 cm/sec 35.3 mmHg AV P1/2t-pr_phl: MV P1/2t-pr_phl: 537.6 msec 69.9 msec Left Ventricle The left ventricle is mildly dilated. There is normal left ventricular wall thickness. LV EF is 20%. Left ventricular systolic function is severely reduced. LV diastolic function could not be adequately assessed due to atrial fibrilation. There is akineia of the apical lateral and apical anterior mcdaniel.The rest of the LV mcdaniel are severely hypokinetic.Cannot exclude a non mobile clot in the apical lateral and apical anterior mcdaniel. No ASD ,PFO or VSD seen. Right Ventricle The right ventricle is normal in size and function. Atria The right atrium is normal. The left atrium is moderately dilated. Mitral Valve There is no evidence of mitral valve prolapse. There is no vegetation seen on the mitral valve. There is no mitral valve stenosis. There is a trace amount of mitral regurgitation. Aortic Valve The aortic valve is mildly calcified. There is no aortic valvular vegetation. There is no aortic valve stenosis. There is aortic sclerosis without aortic stenosis. There is no LVOT obstruction. There is a mild to moderate amount of aortic regurgitation. Tricuspid Valve There is no tricuspid stenosis. There is a mild amount of tricuspid regurgitation. There is moderate pulmonary hypertension by echo. RVSP is 50 to 55 mm of Hg , with RA mean of 15 to 20. Pulmonic Valve There is no pulmonic valvular stenosis. There is a mild amount of pulmonic regurgitation. Great Vessels The aortic root is normal size. The inferior vena cava appeared dilated and decreased < 50% with respiration (RAP 15-20 mmHg). Effusions There is no pericardial effusion. : DEYSI CONTRERAS Lakshmi
[2019-11-13] MEDS: PANTOPRAZOLE SODIUM 40 MG TABLET.DR PO SCH (05:36)
[2019-11-13] MEDS: DILTIAZEM HCL 120 MG CAP.SR.24H PO SCH (09:23)
[2019-11-13] MEDS: DIGOXIN 0.25 MG TABLET PO SCH (09:23)
[2019-11-13] MEDS: LEVOFLOXACIN 500 MG TABLET PO SCH (09:23)
[2019-11-13] MEDS: APIXABAN 5 MG TABLET PO SCH ×2 (09:23→21:11)
--- NOTE | 2019-11-13 20:10 | PDOC DISCHARGE SUMMARY ---
Impression - Admit/DC Date/PCP Admission Date/Primary Care Provider: 11/05/19 15:12 DEYSI CONTRERAS Discharge Date: 11/13/19 - Discharge Diagnosis (1) Acute systolic congestive heart failure Is this a current diagnosis for this admission?: Yes (2) Atrial fibrillation with rapid ventricular response Is this a current diagnosis for this admission?: Yes (3) Chronic obstructive pulmonary disease with (acute) exacerbation Is this a current diagnosis for this admission?: Yes (4) Hypotension Is this a current diagnosis for this admission?: Yes (5) Noncompliance with medication regimen Is this a current diagnosis for this admission?: Yes (6) History of malignant neoplasm of esophagus Is this a current diagnosis for this admission?: Yes - Assessment Summary: Patient was admitted for acute decompensation of cardiac function with congestive failure and atrial fibrillation with rapid ventricular rate. He demonstrated exacerbation of his COPD and possible pneumonia upon presentation that further complicate is care management. He was admitted to [facility] and treated with rate control medication, bronchodilators, and antibiotic coverage. His tracheal aspirate grew multiple organism including Klebsiella Pneumoniae, Providencia Rettgeri, Acinetobacter Baumanni/Haemophilus, Streptococcus Pneumoniae with greatly reduced normal liana. All organisms were adequately covered by Levofloxacin. His chest X-ray did suggest right mid lung zone consolidation. His blood culture was no growth after adequate incubation for five days. His echocardiogram revealed LVEF at about 20 % but contribution of his atrial fibrillation and valvular disease limit adequate evaluation. There is planned for repeat echocardiogram in 3 months on outpatient. He will remain on Eliquis management for anticoagulation, particularly with concern for apical non-mobile thrombus. He will remain on oral Levofloxacin 500 mg po daily x 7 days. He will follow up with Dr. Taylor, tour actor, and myself as instructed upon discharge. - Additional Information Resuscitation Status: Full Code Discharge Diet: Cardiac Discharge Activity: Activity As Tolerated, Balance Activity w/Rest, Weigh Daily Referrals: DEYSI CONTRERAS MD [Primary Care Provider] - 11/18/19 2:00 pm ROXANA SALVADOR MD [ACTIVE STAFF] - Prescriptions: Diltiazem HCl [Cardizem Cd 120 mg Capsule] 120 mg PO DAILY #30 cap.sr.24h Apixaban [Eliquis 5 mg Tablet] 5 mg PO Q12 #60 tablet Digoxin [Lanoxin 0.25 mg Tablet] 0.25 mg PO DAILY #30 Levofloxacin [Levaquin 500 mg Tablet] 500 mg PO DAILY #7 tablet Levalbuterol HCl [Xopenex Neb 1.25 mg/3 ml Ampul] 1.25 mg NEB RTQ4HP PRN #100 vi al.neb PRN Reason: Home Medications: Hydromorphone HCl [Dilaudid] 4 mg PO Q6HP PRN 11/05/19 Hydroxyzine Pamoate [Vistaril] 1 - 2 cap PO QHS 11/05/19 Omeprazole 20 mg PO DAILY 11/05/19 Ondansetron HCl [Zofran 8 mg Tablet] 8 mg PO Q8HP PRN 11/05/19 Oxycodone HCl/Acetaminophen [Oxycodone-Acetaminophen 10-325] 1 tab PO Q4HP PRN 11/05/19 Tizanidine HCl 2 mg PO QHS 11/05/19 Apixaban [Eliquis 5 mg Tablet] 5 mg PO Q12 #60 tablet 11/13/19 Digoxin [Lanoxin 0.25 mg Tablet] 0.25 mg PO DAILY #30 11/13/19 Diltiazem HCl [Cardizem Cd 120 mg Capsule] 120 mg PO DAILY #30 cap.sr.24h 11/13/19 Levalbuterol HCl [Xopenex Neb 1.25 mg/3 ml Ampul] 1.25 mg NEB RTQ4HP PRN #100 vial.neb 11/13/19 Levofloxacin [Levaquin 500 mg Tablet] 500 mg PO DAILY #7 tablet 11/13/19 History of Present Illiness History of Present Illness: RUKHSANA GRAHAM is a 69 year old male patient known to my practice but not compliant with medical follow up and treatment. He presented to the ED with worsening difficulty with breathing. He was seen at home about two days prior to presentation by EMS for similar issue and had tracheal suction through his tra cheostomy with improvement in his symptoms. He reported associated coughing and increase secretion through his tracheostomy site. He denied any significant fever or chills. No outbreak of sweating. No chest pain. Patient admitted to medication noncompliance and follow up in the office . He is on chronic pain management and has been able to keep appointment at his pain management clinic. His initial ED evaluation did revealed atrial fibrillation with rapid ventricular rate, subtherapeutic serum digoxin level, hypoxemia on room air, with chest X-ray findings including diffuse interstitial lung disease, cardiomegaly and small pleural effusion. He was advised hospitalization for further evaluation and management. Hospital Course Hospital Course: Patient was admitted for acute decompensation of cardiac function with congestive failure and atrial fibrillation with rapid ventricular rate. He demonstrated exacerbation of his COPD and possible pneumonia upon presentation that further complicate is care management. He was admitted to [facility] and treated with rate control medication, bronchodilators, and antibiotic coverage. His tracheal aspirate grew multiple organism including Klebsiella Pneumoniae, Providencia Rettgeri, Acinetobacter Baumanni/Haemophilus, Streptococcus Pneumoniae with greatly reduced normal liana. All organisms were adequately cove red by Levofloxacin. His chest X-ray did suggest right mid lung zone consolidation. His blood culture was no growth after adequate incubation for five days. His echocardiogram revealed LVEF at about 20 % but contribution of his atrial fibrillation and valvular disease limit adequate evaluation. There is planned for repeat echocardiogram in 3 months on outpatient. He will remain on Eliquis management for anticoagulation, particularly with concern for apical non-mobile thrombus. He will remain on oral Levofloxacin 500 mg po daily x 7 days. He will follow up with Dr. Taylor, tour actor, and myself as instructed upon discharge. Physical Exam Vital Signs: Temp Pulse Resp BP Pulse Ox 98.1 F 42 L 20 93/61 L 100 11/13/19 15:20 11/13/19 15:20 11/13/19 15:20 11/13/19 15:20 11/13/19 17:40 Intake & Output 11/12/19 11/13/19 11/14/19 06:59 06:59 06:59 Intake Total 3613 984 6323 Output Total 1925 1475 900 Balance -445 -143 910 Weight 57.7 kg 56.9 kg General appearance: PRESENT: no acute distress, disheveled, thin Head exam: PRESENT: atraumatic, normocephalic Eye exam: PRESENT: conjunctiva pink. ABSENT: pallor, scleral icterus Ear exam: PRESENT: normal external ear exam Mouth exam: PRESENT: moist Neck exam: PRESENT: tracheostomy with oxygen tent in use Respiratory exam: PRESENT: decreased breath sounds - at lung bases Cardiovascular exam: PRESENT: irregular rhythm, +S1, +S2. ABSENT: diastolic murmur, systolic murmur GI/Abdominal exam: PRESENT: normal bowel sounds, soft, other - PEG site okay. ABSENT: distended, guarding, mass, organomegaly, rebound, tenderness Extremities exam: ABSENT: pedal edema Neurological exam: PRESENT: alert, awake Psychiatric exam: PRESENT: appropriate affect, normal mood. ABSENT: homicidal ideation, suicidal ideation Skin exam: PRESENT: dry, warm Results Laboratory Results: WBC 5.9 10^3/uL (4.0-10.5) 11/10/19 04:41 RBC 3.93 10^6/uL (4.35-5.55) L 11/10/19 04:41 Hgb 13.1 g/dL (13.5-17.0) L 11/10/19 04:41 Hct 37.7 % (37.9-51.0) L 11/10/19 04:41 MCV 96 fl (80-97) 11/10/19 04:41 MCH 33.3 pg (27.0-33.4) 11/10/19 04:41 MCHC 34.7 g/dL (32.0-36.0) 11/10/19 04:41 RDW 17.3 % (11.5-14.0) H 11/10/19 04:41 Plt Count 161 10^3/uL (150-450) 11/10/19 04:41 Lymph % (Auto) 11.2 % (13-45) L 11/10/19 04:41 Duval % (Auto) 13.8 % (3-13) H 11/10/19 04:41 Eos % (Auto) 2.7 % (0-6) 11/10/19 04:41 Baso % (Auto) 1.0 % (0-2) 11/10/19 04:41 Absolute Neuts (auto) 4.2 10^3/uL (1.7-8.2) 11/10/19 04:41 Absolute Lymphs (auto) 0.7 10^3/uL (0.5-4.7) 11/10/19 04:41 Absolute Monos (auto) 0.8 10^3/uL (0.1-1.4) 11/10/19 04:41 Absolute Eos (auto) 0.2 10^3/uL (0.0-0.6) 11/10/19 04:41 Absolute Basos (auto) 0.1 10^3/uL (0.0-0.2) 11/10/19 04:41 Total Counted 100 11/06/19 04:31 Seg Neutrophils % 71.3 % (42-78) 11/10/19 04:41 Seg Neuts % (Manual) 90 % (42-78) H 11/06/19 04:31 Band Neutrophils % 1 % (3-5) L 11/06/19 04:31 Lymphocytes % (Manual) 7 % (13-45) L 11/06/19 04:31 Monocytes % (Manual) 2 % (3-13) L 11/06/19 04:31 Eosinophils % (Manual) 0 % (0-6) 11/06/19 04:31 Basophils % (Manual) 0 % (0-2) 11/06/19 04:31 Abs Neuts (Manual) 6.6 10^3/uL (1.7-8.2) 11/06/19 04:31 Abs Lymphs (Manual) 0.5 10^3/uL (0.5-4.7) 11/06/19 04:31 Abs Monocytes (Manual) 0.1 10^3/uL (0.1-1.4) 11/06/19 04:31 Absolute Eos (Manual) 0.0 10^3/uL (0.0-0.6) 11/06/19 04:31 Abs Basophils (Manual) 0.0 10^3/uL (0.0-0.2) 11/06/19 04:31 Toxic Granulation SLIGHT 11/06/19 04:31 Platelet Comment DECREASED 11/06/19 04:31 Polychromasia SLIGHT 11/06/19 04:31 Poikilocytosis SLIGHT 11/06/19 04:31 Anisocytosis 2+ 11/06/19 04:31 Ovalocytes SLIGHT 11/06/19 04:31 Carbonic Acid 0.96 mmol/L (1.05-1.35) L 11/05/19 13:17 HCO3/H2CO3 Ratio 22:1 11/05/19 13:17 ABG pH 7.46 (7.35-7.45) H 11/05/19 13:17 ABG pCO2 31.8 mmHg (35-45) L 11/05/19 13:17 ABG pO2 70.5 mmHg (80-100) L 11/05/19 13:17 ABG HCO3 22.0 mmol/L (20-24) 11/05/19 13:17 ABG Total CO2 22.9 mmol/L (23-27) L 11/05/19 13:17 ABG O2 Saturation 95.1 % (94-98) 11/05/19 13:17 ABG Base Excess -1.1 mmol/L 11/05/19 13:17 FiO2 ROOM AIR 11/05/19 13:17 Sodium 137.7 mmol/L (137-145) 11/10/19 04:41 Potassium 4.4 mmol/L (3.6-5.0) 11/10/19 04:41 Chloride 104 mmol/L (98-107) 11/10/19 04:41 Carbon Dioxide 27 mmol/L (22-30) 11/10/19 04:41 Anion Gap 7 (5-19) 11/10/19 04:41 BUN 19 mg/dL (7-20) 11/10/19 04:41 Creatinine 0.87 mg/dL (0.52-1.25) 11/10/19 04:41 Est GFR ( Amer) > 60 (>60) 11/10/19 04:41 Est GFR (MDRD) Non-Af > 60 (>60) 11/10/19 04:41 Glucose 89 mg/dL (75-110) 11/10/19 04:41 Calcium 8.9 mg/dL (8.4-10.2) 11/10/19 04:41 Magnesium 2.4 mg/dL (1.6-2.3) H 11/05/19 08:58 Total Bilirubin 1.0 mg/dL (0.2-1.3) 11/06/19 04:31 Direct Bilirubin 0.4 mg/dL (0.0-0.4) 11/06/19 04:31 Neonat Total Bilirubin Not Reportable 11/06/19 04:31 Neonat Direct Bilirubin Not Reportable 11/06/19 04:31 Neonat Indirect Bili Not Reportable 11/06/19 04:31 AST 20 U/L (17-59) 11/06/19 04:31 ALT 12 U/L (<50) 11/06/19 04:31 Alkaline Phosphatase 62 U/L (38-126) 11/06/19 04:31 Creatine Kinase 56 U/L (55-170) 11/05/19 08:58 CK-MB (CK-2) 2.49 ng/mL (<4.55) 11/05/19 08:58 Troponin I 0.036 ng/mL 11/05/19 12:03 NT-Pro-B Natriuret Pep 5630 pg/mL (<125) H 11/10/19 04:41 Total Protein 6.7 g/dL (6.3-8.2) 11/06/19 04:31 Albumin 3.4 g/dL (3.5-5.0) L 11/06/19 04:31 Urine Color YELLOW 11/05/19 13:10 Urine Appearance CLEAR 11/05/19 13:10 Urine pH 5.0 (5.0-9.0) 11/05/19 13:10 Ur Specific [place] 1.024 11/05/19 13:10 Urine Protein 30 mg/dL (NEGATIVE) H 11/05/19 13:10 Urine Glucose (UA) NEGATIVE mg/dL (NEGATIVE) 11/05/19 13:10 Urine Ketones NEGATIVE mg/dL (NEGATIVE) 11/05/19 13:10 Urine Blood NEGATIVE (NEGATIVE) 11/05/19 13:10 Urine Nitrite NEGATIVE (NEGATIVE) 11/05/19 13:10 Urine Bilirubin NEGATIVE (NEGATIVE) 11/05/19 13:10 Urine Urobilinogen 2.0 mg/dL (<2.0) H 11/05/19 13:10 Ur Leukocyte Esterase TRACE (NEGATIVE) H 11/05/19 13:10 Urine WBC (Auto) 11 /HPF 11/05/19 13:10 Urine RBC (Auto) 1 /HPF 11/05/19 13:10 U Hyaline Cast (Auto) 1 /LPF 11/05/19 13:10 Urine Mucus (Auto) RARE /LPF 11/05/19 13:10 Urine Ascorbic Acid NEGATIVE (NEGATIVE) 11/05/19 13:10 Digoxin 1.18 ng/mL (0.8-2.0) 11/13/19 04:32 11/05/19 11/05/19 11/05/19 08:58 08:58 12:03 CK-MB (CK-2) 2.49 Troponin I 0.055 0.036 NT-Pro-B Natriuret Pep 7280 H 11/10/19 04:41 CK-MB (CK-2) Troponin I NT-Pro-B Natriuret Pep 5630 H Impressions: Chest X-Ray 11/05/19 09:46 IMPRESSION: Congestive heart failure. Chest X-Ray 11/07/19 00:00 IMPRESSION: Right mid lung consolidation worrisome for pneumonia Stable massive cardiomegaly without pleural effusions or pulmonary edema Plan Health Concerns: High risk for readmission due to medication and medical management follow up noncompliance. Plan of Treatment: Emphasized close post acute care monitoring. Enrollment in CHF monitoring program to improve medication compliance and post discharge care. Goals: Reduce readmission risk level and improve medication and post acute care follow up compliance. Time Spent: Greater than 30 Minutes - Care plan discussion and counseling during bedside visit. Stroke Is this a Stroke Patient?: No Acute Heart Failure - Is this a Heart Failure Patient?: Yes Documentation of LVEF assessment?: Yes LVEF < 40%?: Yes-if yes answer questions a through e a) Discharged on ACEI?: No, document contraindications - intolerance due to low blood pressure and atrial fibrillation. b) Discharges on ARB?: No-document contraindications - intolerance due to low blood pressure and atrial fibrillation. c) Discharged on ARNI?: No-Document Contraindications d) Discharged on evidence-based Beta razia(carvedilol, sustained release metoprolol succinate, or bisoprolol)?: No, document contraindications Reason(s) not discharged on Evidence-Based Beta Blockers (carvedilol, sustained released metoprolol succinate, or bisoprolol): Hypotension, Severe COPD/Asthma e) For LVEF <35%, discharged on Aldosterone antagonist?: No-document contraincations Reason(s) not discharged on Aldosterone antagonist for LVEF < 35%: Other - intolerance due to low blood pressure and atrial fibrillation. 3. Anticoagulant therapy for permanect/persistent/paraoxysmal Afib or Aflutter: Yes Follow-up Appointment scheduled within 7 days?: Yes
[2019-11-14] MEDS: PANTOPRAZOLE SODIUM 40 MG TABLET.DR PO SCH (06:01)
[2019-11-14 07:33] VITALS: BP 108/57
[2019-11-14] MEDS: DIGOXIN 0.25 MG TABLET PO SCH (09:25)
[2019-11-14] MEDS: DILTIAZEM HCL 120 MG CAP.SR.24H PO SCH (09:25)
[2019-11-14] MEDS: APIXABAN 5 MG TABLET PO SCH (09:25)
[2019-11-14] MEDS: LEVOFLOXACIN 500 MG TABLET PO SCH (09:25)
== END 2019-11-14 10:25 | disposition home health service (06) | DRG 292 ==
LOC: ER 09:24 → EH 15:12 → 3W 11-06 01:24
PROVIDERS: ADMIT Internal Medicine Geriatric Medicine; ATTEND Internal Medicine Geriatric Medicine
DX: I50.21 Acute systolic (congestive) heart failure (principal); J44.1 Chronic obstructive pulmonary disease with (acute) exacerbation; I48.91 Unspecified atrial fibrillation; I95.9 Hypotension, unspecified; B96.1 Klebsiella pneumoniae [K. pneumoniae] as the cause of diseases classified elsewhere; B95.3 Streptococcus pneumoniae as the cause of diseases classified elsewhere; B96.89 Other specified bacterial agents as the cause of diseases classified elsewhere; Z93.1 Gastrostomy status; Z95.1 Presence of aortocoronary bypass graft; Z95.5 Presence of coronary angioplasty implant and graft; Z93.0 Tracheostomy status; Z91.14 Patient's other noncompliance with medication regimen; Z85.01 Personal history of malignant neoplasm of esophagus; Z85.828 Personal history of other malignant neoplasm of skin
CPT/HCPCS: 36415; 71045; 80048; 80053; 80162; 81001; 82550; 82553; 82803; 83735; 83880; 84484; 85025; 87040; 87070; 87077; 87186; 87205; 93005; 93010; 93306; 94640; 96374; 96375; 99291; J1160; J1956; J3490; J7060; J7620

== ENCOUNTER 2019-12-02 11:34 | Emergency (ER) | payer MEDICARE, MEDICAID ==
--- NOTE | 2019-12-02 12:07 | ER Document Report ---
ED General - General Stated Complaint: WEAKNESS Time Seen by Provider: 12/02/19 11:44 Primary Care Provider: DEYSI CONTRERAS MD [Primary Care Provider] - Follow up as needed TRAVEL OUTSIDE OF THE [place] IN LAST 30 DAYS: No - HPI Notes: 69-year-old male patient of Dr. Contreras with history of esophageal CA, COPD and CHF previously discharged from inpatient service here 3 weeks ago. Patient has been receiving home health services since then. Family is brought him back in today noting that he desaturated while they were suctioning his trach this morning. They are also complaining that the G-tube site looks dirty and needs to be redressed. They note that he has not been back to see his primary care doctor since discharge from the hospital and concerned about his ability to care for himself at home. He is accompanied here by his sister and [id number]. - Related Data Allergies/Adverse Reactions: Penicillins Allergy (Severe, Verified 12/02/19 13:42) turned blue as acetaminophen [From Tylenol] Allergy (Verified 12/02/19 13:42) aspirin Allergy (Verified 12/02/19 13:42) Past Medical History - General Information source: Patient, Relative - Social History Smoking Status: Former Smoker Family History: Reviewed & Not Pertinent, CAD - Past Medical History Cardiac Medical History: Reports: Hx Atrial Fibrillation, Hx Congestive Heart Failure, Hx Coronary Artery Disease, Hx Heart Attack - 2009 Denies: Hx DVT, Hx Hypertension, Hx Pulmonary Embolism Pulmonary Medical History: Reports: Hx COPD Denies: Hx Asthma, Hx Bronchitis, Hx Pneumonia, Hx Sleep Apnea Neurological Medical History: Denies: Hx Cerebrovascular Accident, Hx Seizures Endocrine Medical History: Denies: Hx Diabetes Mellitus Type 1, Hx Diabetes Mellitus Type 2 Renal/ Medical History: Denies: Hx Peritoneal Dialysis Malignancy Medical History: Reports Hx Skin Cancer GI Medical History: Denies: Hx Cirrhosis, Hx Hepatitis Musculoskeletal Medical History: Denies Hx Arthritis, Denies Hx Gout Skin Medical History: Denies Hx Eczema, Denies Hx Psoriasis Psychiatric Medical History: Denies: Hx Depression Infectious Medical History: Denies: Hx Hepatitis Past Surgical History: Reports: Hx Abdominal Surgery - PEG, Hx Cardiac Catheterization, Hx Cardiac Surgery - CAPG, Hx Coronary Artery Bypass Graft - 11/2011, Hx Coronary Stent - Immunizations Immunizations up to date: Yes Hx Diphtheria, Pertussis, Tetanus Vaccination: No - unk Hx Pneumococcal Vaccination: 08/04/19 Review of Systems - Review of Systems Notes: Constitutional: Negative for fever. HENT: Negative for sore throat. Eyes: Negative for visual changes. Cardiovascular: Negative for chest pain. Respiratory: As per HPI. Gastrointestinal: Negative for abdominal pain, vomiting or diarrhea. Genitourinary: Negative for dysuria. Musculoskeletal: Negative for back pain. Skin: Negative for rash. Neurological: Negative for headaches, weakness or numbness. 10 point ROS negative except as marked above and in HPI. Physical Exam - Vital signs Vitals: Temp Pulse Ox 97.8 F 98 12/02/19 11:38 12/02/19 11:38 - Notes Notes: GENERAL: Chronically ill-appearing elderly male. SKIN: Good turgor no rashes. HEAD: Normocephalic atraumatic. EYES: PERRLA. EOMI. Conjunctivae and sclerae clear. EARS: CANALS AND TMS CLEAR. NOSE: CLEAR. MOUTH: Moist mucosa. Good dentition. No stridor or edema. No drooling. NECK: Tracheostomy present. Site is extremely dirty with a lot of crusted yellow mucoid material present. Supple. No masses or thyromegaly. No adenopathy. Carotids 2+ without bruits. No JVD. BACK: Symmetrical without tenderness. CHEST: Respirations unlabored. Breath sounds clear and symmetrical. HEART: Regular rhythm. No murmur gallop or rub. ABDOMEN: G-tube present in epigastrium. Site is dirty. No drainage. Soft nontender without masses, organomegaly or rebound. Bowel sounds normally active. No bruits. GENITALIA: Deferred. EXTREMITIES: No edema. No calf tenderness. Cap refill less than 1.5 seconds. Dorsalis pedis and posterior tibial pulses 3+ and symmetrical. NEUROLOGICAL: GCS 15. Alert and oriented x3. Fluent speech. Cranial nerves II through XII intact. Sensorimotor and cerebellar normal. Normal tone. PSYCHIATRIC: Appropriate affect. Course - Re-evaluation Re-evalutation: 12/02/19 19:44 Social work has evaluated this patient situation and has made arrangements for additional home health services. He has no clear-cut indication for admission at this time. Respiratory clean and change the trach. His G-tube is functional and can be easily flushed at this time. Interestingly the family says they are really not giving anything through the feeding tube right now and they want this removed. I asked him to take this up with primary care provider. His x-ray shows some residual infiltrate in his chest although he is hemodynamically stable and oxygenating fine here. I am going to put him back on Levaquin and I have given him an additional IV dose here prior to discharge. - Vital Signs Vital signs: Temp Pulse Resp BP Pulse Ox 98.0 F 58 L 16 104/68 99 12/02/19 18:00 12/02/19 16:00 12/02/19 18:00 12/02/19 18:00 12/02/19 18:00 - Laboratory Result Diagrams: 12/02/19 14:44 12/02/19 14:44 Laboratory results interpreted by me: 12/02/19 12/02/19 14:44 14:44 WBC 11.1 H RBC 3.91 L Hgb 12.9 L Hct 36.6 L Lymph % (Auto) 5.2 L Absolute Neuts (auto) 10.0 H Seg Neutrophils % 90.2 H BUN 39 H Direct Bilirubin 0.6 H Albumin 3.3 L - Diagnostic Test Radiology reviewed: Reports reviewed - Chest x-ray with mild persistent infilt rate compared with study from 3 weeks ago. Discharge - Discharge Clinical Impression: COPD Pneumonia Qualifiers: Pneumonia type: due to unspecified organism Laterality: unspecified laterality Lung location: unspecified part of lung Qualified Code(s): J18.9 - Pneumonia, unspecified organism Disposition: HOME, SELF-CARE Prescriptions: Levofloxacin [Levaquin 750 mg Tablet] 750 mg PO DAILY #5 tablet Referrals: DEYSI CONTRERAS MD [Primary Care Provider] - Follow up as needed
--- NOTE | 2019-12-02 12:22 | RADIOLOGY REPORT (SQ) ---
EXAM DESCRIPTION: CHEST SINGLE VIEW COMPLETED DATE/TIME: 12/02/2019 12:07 pm REASON FOR STUDY: dyspnea COMPARISON: 11/07/19 EXAM PARAMETERS: NUMBER OF VIEWS: One view. TECHNIQUE: Single frontal radiographic view of the chest acquired. RADIATION DOSE: NA LIMITATIONS: None. FINDINGS: LUNGS AND PLEURA: Stable right middle lobe opacity. New left retrocardiac opacity. No la rge effusion. No pneumothorax. Chronic interstitial changes. MEDIASTINUM AND HILAR STRUCTURES: No masses. Contour normal. HEART AND VASCULAR STRUCTURES: Enlarged, stable. BONES: No acute findings. HARDWARE: Sternotomy and CABG hardware. Tracheostomy tube with tip over midthoracic trachea. Left c hest port with catheter tip at SVC. OTHER: No other significant finding. IMPRESSION: Stable right middle lobe and new left retrocardiac opacity suggestive of pneumonia. Stable large cardiac silhouette. TECHNICAL DOCUMENTATION: JOB ID: [id number] [employer]- All Rights Reserved Reading location - IP/workstation name: [email or web address]
[2019-12-02 15:01] LABS: ABSOLUTE LYMPHOCYTES (AUTO) 0.6 10^3/uL (0.5-4.7); ABSOLUTE MONOCYTES (AUTO) 0.4 10^3/uL (0.1-1.4); BASOPHILS % (AUTO) 0.2 % (0-2); EOSINOPHILS % (AUTO) 0.4 % (0-6); HEMATOCRIT 36.6 % (37.9-51.0); HEMOGLOBIN 12.9 g/dL (13.5-17.0); LYMPHOCYTES % (AUTO) 5.2 % (13-45); MEAN CORPUSCULAR HEMOGLOBIN 32.9 pg (27.0-33.4); MEAN CORPUSCULAR HGB CONC 35.1 g/dL (32.0-36.0); MEAN CORPUSCULAR VOLUME 94 fl (80-97); PLATELET COUNT 239 10^3/uL (150-450); RED BLOOD COUNT 3.91 10^6/uL (4.35-5.55); RED CELL DISTRIBUTION WIDTH 13.2 % (11.5-14.0); SEGMENTED NEUTROPHILS % (AUTO) 90.2 % (42-78); TOTAL CELLS COUNTED % (AUTO) 100 %; WHITE BLOOD COUNT 11.1 10^3/uL (4.0-10.5)
[2019-12-02] MEDS ORDERED: LEVOFLOXACIN 750 MG/D5W RTU 750 MG/150 ML RTUPB IV ONE (15:07)
[2019-12-02 15:22] LABS: ALBUMIN 3.3 g/dL (3.5-5.0); ALKALINE PHOSPHATASE 79 U/L (38-126); ANION GAP 10 (5-19); ASPARTATE AMINO TRANSFERASE 28 U/L (17-59); BILIRUBIN,DIRECT 0.6 mg/dL (0.0-0.4); BLOOD UREA NITROGEN 39 mg/dL (7-20); CALCIUM 9.4 mg/dL (8.4-10.2); CARBON DIOXIDE 27 mmol/L (22-30); CHLORIDE 103 mmol/L (98-107); GLUCOSE 92 mg/dL (75-110); POTASSIUM 4.3 mmol/L (3.6-5.0); TOTAL PROTEIN 7.3 g/dL (6.3-8.2)
[2019-12-02 20:21] VITALS: BP 126/107
== END 2019-12-02 20:22 | disposition home or self-care (01) ==
LOC: ER 11:34
DX: J18.9 Pneumonia, unspecified organism (principal); J44.9 Chronic obstructive pulmonary disease, unspecified; R53.1 Weakness; Z88.0 Allergy status to penicillin; Z88.8 Allergy status to other drugs, medicaments and biological substances; Z85.01 Personal history of malignant neoplasm of esophagus; I50.9 Heart failure, unspecified; I25.10 Atherosclerotic heart disease of native coronary artery without angina pectoris; I25.2 Old myocardial infarction
CPT/HCPCS: 36591; 99285; 96365; 96366; 36415; 87040; 85025; 80053; 71045; J1956; J1642

== ENCOUNTER → 2020-02-02 | Outpatient (CLI) | payer MEDICARE, MEDICAID ==
--- NOTE | 2020-02-02 13:58 | RADIOLOGY REPORT (SQ) ---
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 TECHNIQUE: Blood glucose level was verified. Above dose of FDG was injected intravenously. 2-D seg mented attenuation correction images were obtained from the base of the skull to the midthighs. Nonc ontrast CT images were obtained for attenuation correction and fusion with emission images. CT image s were performed without oral or intravenous contrast and are not sensitive for parenchymal lesions. A series of overlapping emission PET images were obtained. Images reviewed and manipulated at [facility] work station by the radiologist. Images stored on PACS. LIMITATIONS: None. FINDINGS: HEAD AND NECK: No areas of abnormal metabolic activity in the soft tissues of the head and neck. CHEST: No areas of abnormal metabolic activity in the chest. ABDOMEN AND PELVIS: No areas of abnormal metabolic activity in the abdomen or pelvis. Expected physi ologic activity is present in the genitourinary system and bowel. PROXIMAL LOWER EXTREMITIES: No areas of abnormal metabolic activity in the soft tissues of the lower extremities. BONES: No abnormal metabolic activity in the visualized skeleton. ADDITIONAL CT FINDINGS: Persistent peritracheal adenopathy but no significant abnormal metabolic acti vity. The largest node has axillae increased in size and now measures 1.6 cm in greatest transverse diameter compared to 1.2 cm on prior study. Tracheostomy tube remains in place. Left basilar parenc hymal nodules are not significantly changed. There stable pleural thickening in the left lower lobe. There is increased ground-glass opacity most marked in the perihilar distribution which could repre sent congestion or atypical pneumonitis. Incidental note is made of gallstones. OTHER: No other significant findings. IMPRESSION: Persistent right peritracheal adenopathy which is axillae increased in size from prior e xam. No abnormal metabolic activity however are least no more than background left lower lobe parenc hymal nodules are stable in appearance. Perihilar disease along with bilateral ground-glass opacities which is nonspecific and could represen t pneumonitis or vascular congestion. TECHNICAL DOCUMENTATION: JOB ID: [id number] [employer]- All Rights Reserved Reading location - IP/workstation name: [email or web address]
== END ==
LOC: RAD 07:56
PROVIDERS: ATTEND Physician Assistant Medical
DX: C15.5 Malignant neoplasm of lower third of esophagus (principal)
CPT/HCPCS: 78815; A9552

== ENCOUNTER 2020-02-19 20:38 | Inpatient (IN) | payer MEDICARE, MEDICAID ==
[~2020-02-19 20:38] MED LIST changes: -CEFAZOLIN SODIUM 1 GM in DEXTROSE 5%-WATER 50 ML IV PRN; -RINGERS SOLUTION,LACTATED 1,000 ML IV PRN; +SUCCINYLCHOLINE CHLORIDE INJ 200 MG/10 ML VIAL ONE; +VECURONIUM BROMIDE INJ 10 MG VIAL IV ONE
[2020-02-19] MEDS ORDERED: LEVOFLOXACIN 750 MG/D5W RTU 750 MG/150 ML RTUPB IV ONE (20:54)
[2020-02-19] MEDS ORDERED: NORMAL SALINE IV ONE (21:03)
[2020-02-19] MEDS ORDERED: SUCCINYLCHOLINE CHLORIDE INJ 200 MG/10 ML VIAL IV ONE (21:05)
[2020-02-19] MEDS ORDERED: ETOMIDATE INJ/PF 20 MG/10 ML SDV IV ONE (21:05)
[2020-02-19] MEDS ORDERED: MIDAZOLAM HCL 50 MG/100 ML RTUINJ IV PRN (21:08)
[2020-02-19 21:23] LABS: ABSOLUTE BASOPHILS # (AUTO) 0.1 10^3/uL (0.0-0.2); ABSOLUTE EOSINOPHILS # (AUTO) 0.1 10^3/uL (0.0-0.6); ABSOLUTE LYMPHOCYTES (AUTO) 1.8 10^3/uL (0.5-4.7); ABSOLUTE MONOCYTES (AUTO) 0.4 10^3/uL (0.1-1.4); ABSOLUTE NEUT (AUTO) 4.9 10^3/uL (1.7-8.2); EOSINOPHILS % (AUTO) 1.3 % (0-6); HEMATOCRIT 44.3 % (37.9-51.0); LYMPHOCYTES % (AUTO) 25.3 % (13-45); MEAN CORPUSCULAR VOLUME 97 fl (80-97); MONOCYTES % (AUTO) 4.9 % (3-13); PLATELET COUNT 230 10^3/uL (150-450); RED BLOOD COUNT 4.56 10^6/uL (4.35-5.55); RED CELL DISTRIBUTION WIDTH 15.9 % (11.5-14.0); SEGMENTED NEUTROPHILS % (AUTO) 67.5 % (42-78); TOTAL CELLS COUNTED % (AUTO) 100 %; WHITE BLOOD COUNT 7.2 10^3/uL (4.0-10.5)
[2020-02-19 21:27] LABS: PROTHROMBIN TIME 16.3 SEC (11.4-15.4)
[2020-02-19 21:39] LABS: ALBUMIN 4.7 g/dL (3.5-5.0); ALKALINE PHOSPHATASE 104 U/L (38-126); ANION GAP 14 (5-19); ASPARTATE AMINO TRANSFERASE 41 U/L (17-59); BILIRUBIN,DIRECT 0.2 mg/dL (0.0-0.4); BILIRUBIN,TOTAL 1.5 mg/dL (0.2-1.3); BLOOD UREA NITROGEN 26 mg/dL (7-20); CALCIUM 9.5 mg/dL (8.4-10.2); CARBON DIOXIDE 20 mmol/L (22-30); CHLORIDE 107 mmol/L (98-107); GLUCOSE 177 mg/dL (75-110); POTASSIUM 5.1 mmol/L (3.6-5.0); TOTAL PROTEIN 9.4 g/dL (6.3-8.2)
--- NOTE | 2020-02-19 22:17 | ER Document Report ---
Entered by WOOD MOLINA SCRIBE 02/19/202120 Acting as scribe for:ANTONY CHEN IV, MD ED Respiratory Problem - General Chief Complaint: Shortness Of Breath Stated Complaint: DIFFICULTY BREATHING Mode of Arrival: Medic Information source: Emergency Med Personnel Notes: This 69 year old male patient with a history of COPD brought in by EMS presents to the ED today with complaints of shortness of breath that occurred prior to arrival. EMS reports that the patient was shopping at [email or web address] and became short of breath, stating that he has been short of breath since this morning and that it has become progressively worse. EMS states that the patient had O2 sats in the 80s that improved to 95% with 6L O2 via NC and uncontrolled A fib with a heart rate of 209 bpm. EMS administered 15 mg IV Cardizem bolus and placed the patient on 25 mg Cardizem drip. According to EMS, patient had thick white sputum in his tracheostomy tube that they suctioned several times. EMS denies fever or Covid-19 screening. Patient has a PEG tube. TRAVEL OUTSIDE OF THE [place] IN LAST 30 DAYS: No - Related Data Allergies/Adverse Reactions: Penicillins Allergy (Severe, Verified 12/02/19 13:42) turned blue as acetaminophen [From Tylenol] Allergy (Verified 12/02/19 13:42) aspirin Allergy (Verified 12/02/19 13:42) Past Medical History - General Information source: Emergency Med Personnel - Social History Smoking Status: Current Every Day Smoker Cigarette use (# per day): Yes Chew tobacco use (# tins/day): No Smoking Education Provided: No Frequency of alcohol use: None Drug Abuse: None Family History: Reviewed & Not Pertinent, CAD Patient has suicidal ideation: No Patient has homicidal ideation: No - Past Medical History Cardiac Medical History: Reports: Hx Atrial Fibrillation, Hx Congestive Heart Failure, Hx Coronary Artery Disease, Hx Heart Attack - 2009 Pulmonary Medical History: Reports: Hx COPD Malignancy Medical History: Reports Hx Skin Cancer Past Surgical History: Reports: Hx Abdominal Surgery - PEG, Hx Cardiac Catheterization, Hx Coronary Artery Bypass Graft - 11/2011, Hx Coronary Stent - Immunizations Immunizations up to date: Yes Hx Diphtheria, Pertussis, Tetanus Vaccination: No - unk Hx Pneumococcal Vaccination: 08/04/19 Review of Systems - Review of Systems Constitutional: See HPI. denies: Fever EENT: No symptoms reported Cardiovascular: No symptoms reported Respiratory: See HPI, Short of breath, Sputum - in tracheostomy tube Gastrointestinal: No symptoms reported Genitourinary: No symptoms reported Male Genitourinary: No symptoms reported Musculoskeletal: No symptoms reported Skin: No symptoms reported Hematologic/Lymphatic: No symptoms reported Neurological/Psychological: No symptoms reported -: Yes All other systems reviewed and negative Physical Exam - Vital signs Vitals: Resp BP Pulse Ox 33 H 149/100 H 73 L 02/19/20 20:39 02/19/20 20:39 02/19/20 20:39 Interpretation: Tachycardic, Hypoxic, Tachypneic - General General appearance: Alert - HEENT Head: Normocephalic, Atraumatic Eyes: Normal Pupils: PERRL - Respiratory Respiratory status: Respiratory distress, Tachypnea Chest status: Nontender Breath sounds: Rhonchi - in all lung parham Chest palpation: Normal - Cardiovascular Rhythm: Regular, Tachycardia Heart sounds: Normal auscultation Murmur: No Friction rub: No Gallop: None auscultated - Abdominal Inspection: Normal Distension: No distension Bowel sounds: Normal Tenderness: Nontender - Abdomen soft Organomegaly: No organomegaly - Back Back: Normal, Nontender - Extremities General upper extremity: Normal inspection General lower extremity: Normal inspection - Neurological Neuro grossly intact: Yes - Psychological Associated symptoms: Normal affect, Normal mood - Skin Skin Temperature: Warm Skin Moisture: Dry Skin Color: Normal Course - Re-evaluation Re-evalutation: 02/19/20 23:51 Patient had his #8 trach tube changed out with a new cuffed #8 trach by this MD at 2050 hrs. patient tolerated the procedure well patient underwent RSI with etomidate and succinyl choline at 2102 and was put on a ventilator. Patient was moved to room 8. - Vital Signs Vital signs: Temp Pulse Resp BP Pulse Ox 98.1 F 131 H 36 H 130/59 H 99 02/20/20 02:04 02/20/20 02:04 02/20/20 02:04 02/20/20 02:04 02/20/20 04:01 - Laboratory Result Diagrams: 02/19/20 21:04 02/19/20 21:04 Laboratory results interpreted by me: 02/19/20 02/19/20 02/19/20 20:59 21:04 21:04 RDW 15.9 H PT 16.3 H Carbonic Acid 1.72 H ABG pH 7.14 L* ABG pCO2 57.0 H ABG pO2 75.6 L ABG HCO3 19.1 L ABG Total CO2 20.9 L ABG O2 Saturation 90.5 L Potassium Carbon Dioxide BUN Creatinine Est GFR (MDRD) Non-Af Glucose Lactic Acid Total Bilirubin Total Protein Urine Protein Urine Glucose (UA) Urine Blood Urine Urobilinogen 02/19/20 02/19/20 02/19/20 21:04 21:20 23:27 RDW PT Carbonic Acid ABG pH ABG pCO2 ABG pO2 ABG HCO3 ABG Total CO2 ABG O2 Saturation Potassium 5.1 H Carbon Dioxide 20 L BUN 26 H Creatinine 1.26 H Est GFR (MDRD) Non-Af 57 L Glucose 177 H Lactic Acid 4.6 H Total Bilirubin 1.5 H Total Protein 9.4 H Urine Protein >=500 H Urine Glucose (UA) 50 H Urine Blood SMALL H Urine Urobilinogen 2.0 H - Diagnostic Test Radiology reviewed: Reports reviewed - 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, 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 Time consulted: 23:50 Reason for consultation: 02/19/20 23:53 respiratory failure, on ventilator Consulted provider: will come to ER Critical Care Note - Critical Care Note Total time excluding time spent on procedures (mins): 120 Discharge - Discharge Clinical Impression: Respiratory failure Qualifiers: Chronicity: unspecified Respiratory failure complication: hypoxia and hypercapnia Qualified Code(s): J96.91 - Respiratory failure, unspecified with hypoxia Condition: Critical Disposition: ADMITTED INPATIENT Admitting Provider: Maureen (Diabetes Specialist) Unit Admitted: ICU I personally performed the services described in the documentation, reviewed and edited the documentation which was dictated to the scribe in my presence, and it accurately records my words and actions.
--- NOTE | 2020-02-19 22:40 | RADIOLOGY REPORT (SQ) ---
EXAM DESCRIPTION: X-RAY CHEST- One View CLINICAL HISTORY: Shortness of breath COMPARISON: December 02, 2019 TECHNIQUE: Single view of the chest. FINDINGS: There are overlying EKG leads. Left chest wall port distal tip is in stable position. Tracheostomy is in stable position. When compared with prior chest radiograph December 02, 2019 there is significant interval worsening of patchy multifocal airspace opacities. The pulmonary vascularity is prominent in appearance. The cardiomediastinal silhouette is persistently enlarged, with evidence of cardiothoracic postoperative change. Atherosclerotic vascular calcifications are noted. The structures are stable. There is gaseous distention of the presumed gastric bubble. IMPRESSION: 1. Significant interval increase in multifocal airspace opacities. Findings are nonspecific and differential diagnosis includes both infectious and inflammatory causes. Underlying lesion is not excluded. 2. Persistent enlargement of the cardiac silhouette.
[2020-02-19 22:51] LABS: ARTERIAL BLOOD BASE EXCESS -10.3 mmol/L; ARTERIAL BLOOD FIO2 15L; ARTERIAL BLOOD H2CO3 1.72 mmol/L (1.05-1.35); ARTERIAL BLOOD HCO3 19.1 mmol/L (20-24); ARTERIAL BLOOD O2 SATURATION 90.5 % (94-98); ARTERIAL BLOOD PO2 75.6 mmHg (80-100); ARTERIAL BLOOD TOTAL CO2 20.9 mmol/L (23-27)
[2020-02-19 22:54] LABS: ARTERIAL BLOOD PH 7.14 (7.35-7.45)
[2020-02-19 23:51] LABS: APPEARANCE,URINE CLOUDY; BILIRUBIN,URINE NEGATIVE (NEGATIVE); COLOR,URINE AMBER; GLUCOSE, URINE 50 mg/dL (NEGATIVE); KETONES,URINE NEGATIVE (NEGATIVE); LEUKOCYTE ESTERASE,URINE NEGATIVE (NEGATIVE); NITRITE,URINE NEGATIVE (NEGATIVE); PROTEIN,URINE >=500 mg/dL (NEGATIVE); URINE SPECIFIC GRAVITY 1.018
[2020-02-20] MEDS: METOPROLOL TARTRATE PF/INJ 5 MG/5 ML SDV IV SCH ×2 (01:52→02:06)
[2020-02-20 01:59] LABS: ARTERIAL BLOOD BASE EXCESS -5.9 mmol/L; ARTERIAL BLOOD H2CO3 1.01 mmol/L (1.05-1.35); ARTERIAL BLOOD HCO3 18.6 mmol/L (20-24); ARTERIAL BLOOD O2 SATURATION 94.2 % (94-98); ARTERIAL BLOOD PCO2 33.5 mmHg (35-45); ARTERIAL BLOOD PH 7.36 (7.35-7.45); ARTERIAL BLOOD PO2 72.2 mmHg (80-100); ARTERIAL BLOOD TOTAL CO2 19.7 mmol/L (23-27)
[2020-02-20 02:20] LABS: C-REACTIVE PROTEIN 16.5 mg/L (<10.0)
[2020-02-20 03:17] LABS: ARTERIAL BLOOD H2CO3 1.35 mmol/L (1.05-1.35); ARTERIAL BLOOD HCO3 21.4 mmol/L (20-24); ARTERIAL BLOOD O2 SATURATION 64.4 % (94-98); ARTERIAL BLOOD PCO2 44.9 mmHg (35-45); ARTERIAL BLOOD TOTAL CO2 22.8 mmol/L (23-27)
[2020-02-20] MEDS ORDERED: PROPOFOL 1,000 MG/100 ML INFUS..BTL IV PRN (03:24)
[2020-02-20] MEDS ORDERED: ENOXAPARIN SODIUM INJ 40 MG/0.4 ML DISP.SYRIN SUBCUT ONE (04:00)
[2020-02-20] MEDS ORDERED: GLUCAGON,HUMAN RECOMB 1 MG INJ IM PRN (04:08)
[2020-02-20] MEDS ORDERED: DEXTROSE 50%-WATER 25 GM/50 ML DISP.SYRIN IV PRN ×2 (04:08)
[2020-02-20] MEDS ORDERED: DEXTROSE 40% GEL 15 GM TUBE PO PRN ×2 (04:08)
[2020-02-20] MEDS: METHYLPREDNISOLONE INJ 125 MG/2 ML SDV IV SCH ×3 (05:12→21:37)
[2020-02-20] MEDS: INSULIN REG, HUMAN 100 UNIT/ML 3 ML VIAL (PYX) SUBCUT SCH ×4 (05:13→23:53)
[2020-02-20] MEDS: DIGOXIN 0.25 MG TABLET PEG SCH ×2 (05:13→12:34)
[2020-02-20] MEDS: ASCORBIC ACID 500 MG TABLET PEG SCH ×4 (05:13→23:53)
[2020-02-20] MEDS ORDERED: LINEZOLID 600 MG/300 ML RTUPB IV ONE (05:32)
[2020-02-20] MEDS: LINEZOLID 600 MG/300 ML RTUPB IV SCH ×2 (05:46→18:56)
[2020-02-20 05:49] LABS: ARTERIAL BLOOD BASE EXCESS -3.1 mmol/L; ARTERIAL BLOOD H2CO3 0.87 mmol/L (1.05-1.35); ARTERIAL BLOOD HCO3 19.6 mmol/L (20-24); ARTERIAL BLOOD O2 SATURATION 97.6 % (94-98); ARTERIAL BLOOD PCO2 28.9 mmHg (35-45); ARTERIAL BLOOD PH 7.45 (7.35-7.45); ARTERIAL BLOOD PO2 94.6 mmHg (80-100); ARTERIAL BLOOD TOTAL CO2 20.5 mmol/L (23-27)
[2020-02-20 05:51] LABS: ARTERIAL BLOOD FIO2 50%
[2020-02-20] MEDS ORDERED: AZITHROMYCIN INJ 500 MG VIAL IV SCH (06:00)
[2020-02-20 06:10] LABS: ANION GAP 7 (5-19); BLOOD UREA NITROGEN 31 mg/dL (7-20); CALCIUM 8.2 mg/dL (8.4-10.2); CARBON DIOXIDE 21 mmol/L (22-30); CHLORIDE 111 mmol/L (98-107); GLUCOSE 94 mg/dL (75-110); PHOSPHORUS 3.9 mg/dL (2.5-4.5)
--- NOTE | 2020-02-20 08:36 | CRITICAL CARE ADMISSION REPORT ---
HPI Date:: 02/20/20 Time:: 00:15 Reason for ICU Reason:: Acute respiratory failure due to hypoxia and hypercapnia, possible COVID-19 HPI: Mr. Urrutia is a 69-year-old male with a past medical history significant for tobacco abuse, CAD status post CABG, CHF with an EF of 20% in November 2019, hypertension, hyperlipidemia, chronic atrial fibrillation reportedly on Eliquis, respiratory failure for which he has an established tracheostomy, pneumonia, and COPD who presented to [facility] ED with complaints of shortness of breath that occurred shortly prior to arrival while the patient was shopping at [facility]. His shortness of breath began earlier in the morning on 02/19/2020 progressively becoming worse throughout the day. Upon EMS arrival to [facility], the SPO2 was noted to be in the 80s with improvement to 95% on 6 L via nasal cannula. He was also found to be in atrial fibrillation RVR with a heart rate of 209 bpm. EMS administered 15 mg of diltiazem followed by an infusion in route which has since been discontinued. Patient received 2L of normal saline in the ED with concern for sepsis. To note, patient has no leukocytosis/leukopenia or left shift, though there is a lactic acidemia of 4.6. EMS reportedly verbally screened for COVID-19 at [facility] for which she denied fever, diagnosis of COVID, or recent exposure to anyone with COVID. However, I will say that his chest x-ray is concerning for a viral pneumonia with a possibility of COVID-19. Patient has an established tracheostomy and PEG feeding tube for which the cuffed trach cannula was changed out in the ED with another #8 cuffed cannula given the purulent and malodorous appearance/smell per the ER physician. The patient required intubation in the emergency department for which ICU was consulted for ventilator management. POCUS performed by myself in the ED demonstrates EF <20% for which a digoxin level will be checked and the medication resumed if not toxic. Patient to be transferred to the ICU. To note, per medical record review, patient has a history of medication non- compliance. History obtained from:: ER physician, medical record review - Diagnosis/Plan (1) Acute on chronic respiratory failure with hypoxia and hypercapnia Is this a current diagnosis for this admission?: Yes (2) Chronic respiratory failure requiring continuous mechanical ventilation through tracheostomy Is this a current diagnosis for this admission?: Yes (3) Metabolic acidosis with respiratory acidosis Is this a current diagnosis for this admission?: Yes (4) Systolic heart failure Qualifiers: Heart failure chronicity: chronic Qualified Code(s): I50.22 - Chronic systolic (congestive) heart failure Is this a current diagnosis for this admission?: Yes (5) Chronic atrial fibrillation with rapid ventricular response Is this a current diagnosis for this admission?: Yes Plan: Metoprolol 5 mg IVP x2 doses and re-evaluate rate control. Resume Eliquis later this AM if no contraindication. Need to work up patient further to determine if needs invasive procedure. Resume Digoxin after obtaining Dig level. (6) HLD (hyperlipidemia) Qualifiers: Hyperlipidemia type: pure hypercholesterolemia Qualified Code(s): E78.00 - Pure hypercholesterolemia, unspecified; E78.0 - Pure hypercholesterolemia Is this a current diagnosis for this admission?: Yes (7) HTN (hypertension) Qualifiers: Hypertension type: essential hypertension Qualified Code(s): I10 - Essential (primary) hypertension Is this a current diagnosis for this admission?: Yes (8) History of skin cancer in adulthood Is this a current diagnosis for this admission?: No (9) Nicotine dependence, cigarettes, with other nicotine-induced disorders Is this a current diagnosis for this admission?: Yes (10) PAD (peripheral artery disease) Is this a current diagnosis for this admission?: Yes (11) Chronic pain Qualifiers: Chronic pain type: other chronic pain Qualified Code(s): G89.29 - Other chronic pain Is this a current diagnosis for this admission?: Yes - . Plan Summary: Mr Urrutia is to be admitted to ICU. He will be changed from Midazolam infusion to Propofol allowing for better neurological exams and avoiding prolonged metabolization of Midazolam, goal RASS -2. He will be provided with pain medication prn for his chronic pain. His head will be elevated for now, though he may need lateral decubitus positioning +/- proning if this is indeed COVID- 19. His RR will be slowly weaned on mechanical ventilator monitoring his acidemia. I will obtain an ABG now. His CXR appears to be of a viral pneumonia pattern and with patchy bilateral lower lobe/lateral infiltrate appearance is certainly concerning for COVID characteristics. Since QTc is presently acceptable, we will place him on Plaquenil, Vit C, Vit D, Zinc, and empiric Zyvox (given hx MRSA PNA), Azithromax, and Cefepime (allergic reaction unlikely given 4th gen cephalosporin). I will also obtain a VBG for an O2 saturation to determine if he needs a Milrinone infusion given his severe heart failure and to ensure the lactic acidemia is not from cardiac etiology. If saturation is okay and Digoxin level is not toxic, I will resume his home Digoxin dose. Will obtain echocardiogram to r/o worsening heart failure for which it appears he was to have repeated 3 months from his November admission anyhow. For his chronic atrial fibrillation, I will start on therapeutic Lovenox for now with a plan of resuming Eliquis later today versus tomorrow, allowing time for further workup which may or may not include invasive procedures/diagnostics. I'm not certain he is currently compliant with Eliquis given his PT/INR of 16/1.3 on admission. He will receive IV metoprolol for HR control at this time. He resides with his brother who is unfortunately, also admitted to [facility] under the care of our critical care service presently with an inability to provide information. Will repeat another BMP monitoring renal function. Rojas for strict I&O. NPO with PEG placed on gravity drainage with exception of when medications are administered. There is already an NG tube in place from the ED which we will remove if the established PEG works well. We can start enteral nutrition later today; will order preparing box tender consult. Patient does not appear to need more fluid at this time and appears euvolemic on ultrasound with overall poor LVEF, also noting a small right pleural effusion on ultrasound. Insulin sliding scale coverage will be provided to prevent hyperglycemia. The patient will be turned q2h. The [employer] Survival [employer]ician Dr Reddy will see Mr Urrutia later this morning. Past Medical History Cardiac Medical History: Reports: Atrial Fibrillation, Congestive Heart Failure, Coronary Artery Disease, Myocardial Infarction - 2009 Denies: DVT, Hypertension, Pulmonary Embolism Pulmonary Medical History: Reports: Chronic Obstructive Pulmonary Disease (COPD), Other - chronic tracheostomy Denies: Asthma, Bronchitis, Pneumonia, Sleep Apnea Neurological Medical History: Denies: Seizures Endocrine Medical History: Denies: Diabetes Mellitus Type 1, Diabetes Mellitus Type 2 Malignancy Medical History: Reports: Skin Cancer GI Medical History: Denies: Cirrhosis, Hepatitis Musculoskeltal Medical History: Denies: Arthritis, Gout Skin Medical History: Denies: Eczema, Psoriasis Psychiatric Medical History: Denies: Depression Hematology: Denies: Anemia, Bleeding Tendencies Infectious Medical History: Reports: Methicillin-Resistant Staph Aureus Past Surgical History Past Surgical History: Reports: Cardiac Catheterization, Coronary Artery Bypass Graft - 11/2011, Coronary Stent Social/Family History - Social History Smoking Status: Current Every Day Smoker Frequency of Alcohol Use: None Hx Recreational Drug Use: No Drugs: None Hx Prescription Drug Abuse: No - Family History Family History: Hypertension - Medication/Allergies Home Medications: Hydromorphone HCl [Dilaudid] 4 mg PO Q6HP PRN 11/05/19 Hydroxyzine Pamoate [Vistaril] 1 - 2 cap PO QHS 11/05/19 Omeprazole 20 mg PO DAILY 11/05/19 Ondansetron HCl [Zofran 8 mg Tablet] 8 mg PO Q8HP PRN 11/05/19 Oxycodone HCl/Acetaminophen [Oxycodone-Acetaminophen 10-325] 1 tab PO Q4HP PRN 11/05/19 Tizanidine HCl 2 mg PO QHS 11/05/19 Apixaban [Eliquis 5 mg Tablet] 5 mg PO Q12 #60 tablet 11/13/19 Digoxin [Lanoxin 0.25 mg Tablet] 0.25 mg PO DAILY #30 11/13/19 Diltiazem HCl [Cardizem Cd 120 mg Capsule] 120 mg PO DAILY #30 cap.sr.24h 11/13/19 Levalbuterol HCl [Xopenex Neb 1.25 mg/3 ml Ampul] 1.25 mg NEB RTQ4HP PRN #100 vi al.neb 11/13/19 Levofloxacin [Levaquin 500 mg Tablet] 500 mg PO DAILY #7 tablet 11/13/19 Levofloxacin [Levaquin 750 mg Tablet] 750 mg PO DAILY #5 tablet 12/02/19 Allergies/Adverse Reactions: Penicillins Allergy (Severe, Verified 12/02/19 13:42) turned blue as infant acetaminophen [From Tylenol] Allergy (Verified 12/02/19 13:42) aspirin Allergy (Verified 12/02/19 13:42) Review of Systems ROS unobtainable: Due to endotracheal tube, Due to mental status Physical Exam Vital Signs: Temp Pulse Resp BP Pulse Ox 33 H 102/69 97 02/20/20 00:16 02/20/20 00:16 02/20/20 00:16 Intake & Output 02/18/20 02/19/20 02/20/20 06:59 06:59 06:59 Intake Total 2260 Output Total 20 Balance 2240 Weight 63.503 kg Weight/Height Weight 63.503 kg Height 5 ft 9 in General appearance: PRESENT: severe distress Head exam: PRESENT: atraumatic, normocephalic, other - Multiple diffuse scalp skin cancer lesions. Temporal wasting with generalized cachectic appearance. Eye exam: PRESENT: conjunctiva pink, EOMI, PERRLA, other - right medial scleral injection with small vesicular appearing lesions on the sclera, no drainage identified.. ABSENT: periorbital swelling, scleral icterus Ear exam: PRESENT: other - multiple diffuse ear skin cancer lesions. ABSENT: bleeding, drainage Mouth exam: PRESENT: moist, neck supple, tongue midline. ABSENT: laceration Neck exam: PRESENT: full ROM, tracheostomy - chronic, cannula already changed out with #8 cuffed by ED physician. ABSENT: JVD, lymphadenopathy, tenderness, tracheal deviation Respiratory exam: PRESENT: accessory muscle use, other - Lung sounds not auscultated secondary to the confines of PPE and poor auditory capability of disposable stethoscope Cardiovascular exam: PRESENT: irregular rhythm - a-fib RVR, other - Cardiac sounds not auscultated secondary to the confines of PPE and poor auditory capability of disposable stethoscope Pulses: PRESENT: other - all radial, DP, PT arteries present by doppler signal only, capillary refill <2 seconds Vascular exam: PRESENT: normal capillary refill GI/Abdominal exam: PRESENT: soft, other - Bowel sounds not auscultated secondary to the confines of PPE and poor auditory capability of disposable stethoscope. ABSENT: distended, Smiley's sign, tenderness Rectal exam: PRESENT: deferred Gentrourinary exam: PRESENT: indwelling catheter - placed in ED. Some black dots circumferentially around base of penile glans. ABSENT: erythema, lacerations, scrotal swelling Extremities exam: PRESENT: clubbing, full ROM. ABSENT: calf tenderness, joint swelling, pedal edema, tenderness Musculoskeletal exam: PRESENT: full ROM. ABSENT: deformity, dislocation, tenderness Neurological exam: PRESENT: other - sedated, intubated Skin exam: PRESENT: dry, normal color, warm, other - diffuse skin cancer appearing lesions to arms, legs, ears, scalp. ABSENT: jaundice, rash Tubes/Lines: PRESENT: Peg Tube - chronic Laboratory/Radiographs Laboratory Results: 02/19/20 21:04 02/19/20 21:04 02/19/20 02/19/20 02/19/20 20:59 21:04 21:04 WBC 7.2 RBC 4.56 Hgb 15.0 Hct 44.3 MCV 97 MCH 33.0 MCHC 34.0 RDW 15.9 H Plt Count 230 Seg Neutrophils % 67.5 Carbonic Acid 1.72 H HCO3/H2CO3 Ratio 11:1 ABG pH 7.14 L* ABG pCO2 57.0 H ABG pO2 75.6 L ABG HCO3 19.1 L ABG O2 Saturation 90.5 L ABG Base Excess -10.3 FiO2 15L Sodium 141.0 Potassium 5.1 H Chloride 107 Carbon Dioxide 20 L Anion Gap 14 BUN 26 H Creatinine 1.26 H Est GFR ( Amer) > 60 Glucose 177 H Lactic Acid Calcium 9.5 Total Bilirubin 1.5 H AST 41 Alkaline Phosphatase 104 Total Protein 9.4 H Albumin 4.7 Urine Color Urine Appearance Urine pH Ur Specific [place] Urine Protein Urine Glucose (UA) Urine Ketones Urine Blood Urine Nitrite Ur Leukocyte Esterase Urine WBC (Auto) Urine RBC (Auto) 02/19/20 02/19/20 21:20 23:27 WBC RBC Hgb Hct MCV MCH MCHC RDW Plt Count Seg Neutrophils % Carbonic Acid HCO3/H2CO3 Ratio ABG pH ABG pCO2 ABG pO2 ABG HCO3 ABG O2 Saturation ABG Base Excess FiO2 Sodium Potassium Chloride Carbon Dioxide Anion Gap BUN Creatinine Est GFR ( Amer) Glucose Lactic Acid 4.6 H Calcium Total Bilirubin AST Alkaline Phosphatase Total Protein Albumin Urine Color YESENIA Urine Appearance CLOUDY Urine pH 5.0 Ur Specific [place] 1.018 Urine Protein >=500 H Urine Glucose (UA) 50 H Urine Ketones NEGATIVE Urine Blood SMALL H Urine Nitrite NEGATIVE Ur Leukocyte Esterase NEGATIVE Urine WBC (Auto) 7 Urine RBC (Auto) 5 02/19/20 21:04 Troponin I 0.057 Impressions: Chest X-Ray 02/19/20 20:55 IMPRESSION: 1. Significant interval increase in multifocal airspace opacities. Findings are nonspecific and differential diagnosis includes both infectious and inflammatory causes. Underlying lesion is not excluded. 2. Persistent enlargement of the cardiac silhouette. All labs, radiographs, diagnostic studies and EKGs were personally reviewed: Yes In addition, reports of radiographic and diagnostic studies were read: Yes Critical Time Critical Time (minutes): 80 -: The care of a critically ill patient is dynamic. This note represents a static moment in the admission process. Orders and treatments may be given simultaneously and urgently, and time is not front office representative of the treatment process. This patient requires Critical Care secondary to life threatening organ or limb dysfunction. Without Critical Care services, the patient is at risk for increased mortality and morbidity.
--- NOTE | 2020-02-20 08:48 | EKG REPORT ---
SEVERITY:- ABNORMAL ECG - ATRIAL FIBRILLATION, V-RATE 105-153 PROBABLE LVH WITH SECONDARY REPOL ABNRM : Confirmed by: Saeid Fofana MD 20-Feb-2020 08:47:24
--- NOTE | 2020-02-20 08:48 | EKG REPORT ---
SEVERITY:- ABNORMAL ECG - ATRIAL FIBRILLATION RIGHT AXIS DEVIATION CONSIDER LEFT VENTRICULAR HYPERTROPHY BORDERLINE PROLONGED QT INTERVAL : Confirmed by: Saeid Fofana MD 20-Feb-2020 08:47:05
[2020-02-20] MEDS ORDERED: ENOXAPARIN SODIUM INJ 30 MG/0.3 ML DISP.SYRIN SUBCUT SCH (10:00)
[2020-02-20] MEDS ORDERED: FAMOTIDINE INJ/PF 20 MG/2 ML SDV IV SCH (10:00)
[2020-02-20] MEDS ORDERED: HYDROXYCHLOROQUINE SULFATE 200 MG TABLET NG SCH (10:00)
[2020-02-20] MEDS: PANTOPRAZOLE SODIUM 40 MG VIAL IV SCH (12:33)
[2020-02-20] MEDS: ZINC SULFATE 220 MG CAPSULE PEG SCH (12:33)
[2020-02-20] MEDS: CHOLECALCIFEROL (D3) 1,000 UNIT (25 MCG) TABLET PEG SCH (12:33)
[2020-02-20] MEDS: AZITHROMYCIN 500 MG in DEXTROSE 5%-WATER 250 ML IV SCH (12:34)
[2020-02-20] MEDS: CEFEPIME HCL 2 GM in DEXTROSE 5%-WATER 50 ML IV SCH ×2 (12:34→21:36)
[2020-02-20] MEDS: CEFTRIAXONE 1 GM/D5W RTU 1 GM/50 ML RTUPB IV SCH (12:36)
[2020-02-20] MEDS: DILTIAZEM HCL INJ 25 MG/5 ML VIAL IV PRN ×3 (15:15→23:53)
[2020-02-20] MEDS ORDERED: HYDROXYZINE PAMOATE 25 MG CAPSULE PO PRN (17:10)
[2020-02-20] MEDS ORDERED: TIZANIDINE HCL 4 MG TABLET PO PRN (17:10)
[2020-02-20] MEDS ORDERED: ALBUTEROL SULFATE 0.083% NEB 2.5 MG/3 ML AMPUL NEB PRN (17:10)
[2020-02-20] MEDS ORDERED: DIGOXIN 0.25 MG TABLET PO SCH (17:15)
[2020-02-20] MEDS ORDERED: OXYCODONE HCL IR 5 MG TABLET PO PRN (17:25)
[2020-02-20] MEDS ORDERED: PANTOPRAZOLE SODIUM 20 MG TABLET.DR PO SCH (17:30)
[2020-02-20] MEDS ORDERED: OXYCODONE-ACETAMINOPHEN 5-325 MG TABLET PO PRN (17:30)
[2020-02-20] MEDS ORDERED: DILTIAZEM HCL 120 MG CAP.SR.24H PO SCH (18:00)
[2020-02-20] MEDS ORDERED: HYDROXYZINE PAMOATE 25 MG CAPSULE PEG PRN (18:00)
[2020-02-20] MEDS ORDERED: TIZANIDINE HCL 4 MG TABLET PEG PRN (18:30)
[2020-02-20] MEDS ORDERED: OXYCODONE-ACETAMINOPHEN 5-325 MG TABLET PEG PRN (18:30)
[2020-02-20] MEDS: ENOXAPARIN SODIUM INJ 40 MG/0.4 ML DISP.SYRIN SUBCUT SCH (18:54)
[2020-02-20] MEDS: OXYCODONE HCL IR 5 MG TABLET PEG PRN (20:35)
[2020-02-20] MEDS ORDERED: APIXABAN 5 MG TABLET PO SCH (22:00)
[2020-02-21] MEDS: LINEZOLID 600 MG/300 ML RTUPB IV SCH (05:01)
[2020-02-21] MEDS: METHYLPREDNISOLONE INJ 125 MG/2 ML SDV IV SCH ×3 (05:02→21:38)
[2020-02-21] MEDS: OXYCODONE HCL IR 5 MG TABLET PEG PRN ×2 (05:02→10:49)
[2020-02-21] MEDS: ASCORBIC ACID 500 MG TABLET PEG SCH ×4 (05:02→23:51)
[2020-02-21] MEDS: ENOXAPARIN SODIUM INJ 40 MG/0.4 ML DISP.SYRIN SUBCUT SCH ×2 (05:03→17:36)
[2020-02-21] MEDS: INSULIN REG, HUMAN 100 UNIT/ML 3 ML VIAL (PYX) SUBCUT SCH ×4 (05:07→23:51)
[2020-02-21 05:50] LABS: HEMATOCRIT 36.5 % (37.9-51.0); MEAN CORPUSCULAR HEMOGLOBIN 32.3 pg (27.0-33.4); MEAN CORPUSCULAR VOLUME 95 fl (80-97); PLATELET COUNT 169 10^3/uL (150-450); RED BLOOD COUNT 3.84 10^6/uL (4.35-5.55); RED CELL DISTRIBUTION WIDTH 15.5 % (11.5-14.0); WHITE BLOOD COUNT 12.6 10^3/uL (4.0-10.5)
[2020-02-21 05:55] LABS: HEMOGLOBIN 12.4 g/dL (13.5-17.0)
[2020-02-21 06:00] LABS: ANION GAP 6 (5-19); BLOOD UREA NITROGEN 40 mg/dL (7-20); CALCIUM 8.7 mg/dL (8.4-10.2); CARBON DIOXIDE 22 mmol/L (22-30); CHLORIDE 108 mmol/L (98-107); GLUCOSE 125 mg/dL (75-110); POTASSIUM 4.4 mmol/L (3.6-5.0)
[2020-02-21 06:16] LABS: ABSOLUTE LYMPHOCYTES# (MANUAL) 0.3 10^3/uL (0.5-4.7); ABSOLUTE MONOCYTES # (MANUAL) 0.1 10^3/uL (0.1-1.4); BASOPHILS % (MANUAL) 0 % (0-2); EOSINOPHILS % (MANUAL) 0 % (0-6); LYMPHOCYTES % (MANUAL) 2 % (13-45); MONOCYTES % (MANUAL) 1 % (3-13); SEGMENTED NEUTROPHILS % (MAN) 97 % (42-78); TOTAL CELLS COUNTED 100
[2020-02-21 06:17] LABS: ANISOCYTOSIS 1+; OVALOCYTES 1+; POIKILOCYTOSIS 1+; TEAR DROP CELLS SLIGHT; TOXIC GRANULATION SLIGHT
[2020-02-21 06:18] LABS: PLATELET COMMENT ADEQUATE
[2020-02-21] MEDS: PANTOPRAZOLE SODIUM 40 MG PACKET.DR NG SCH ×2 (06:24→17:19)
[2020-02-21] MEDS: DILTIAZEM HCL INJ 25 MG/5 ML VIAL IV PRN ×2 (06:36→14:49)
[2020-02-21] MEDS ORDERED: DILTIAZEM HCL 60 MG TABLET PEG SCH (10:00)
[2020-02-21] MEDS ORDERED: HYDROXYCHLOROQUINE SULFATE 200 MG TABLET NG SCH (10:00)
[2020-02-21] MEDS: AZITHROMYCIN 500 MG in DEXTROSE 5%-WATER 250 ML IV SCH (10:46)
[2020-02-21] MEDS: CEFTRIAXONE 1 GM/D5W RTU 1 GM/50 ML RTUPB IV SCH (10:47)
[2020-02-21] MEDS: CEFEPIME HCL 2 GM in DEXTROSE 5%-WATER 50 ML IV SCH ×2 (10:47→21:38)
[2020-02-21] MEDS: PANTOPRAZOLE SODIUM 40 MG VIAL IV SCH (10:48)
[2020-02-21] MEDS: DIGOXIN 0.25 MG TABLET PEG SCH (10:48)
[2020-02-21] MEDS: ZINC SULFATE 220 MG CAPSULE PEG SCH (10:48)
[2020-02-21] MEDS: CHOLECALCIFEROL (D3) 1,000 UNIT (25 MCG) TABLET PEG SCH (10:48)
--- NOTE | 2020-02-21 11:20 | PDOC CRITICAL CARE PROG REPORT ---
General Date:: 02/21/20 ICU Day:: 2 Hospital Day:: 2 Resuscitation Status: Full Code Events in the past 12 to 24 Hours:: Off ventilator. Review of systems relevant to events:: Respiratory. Reason for ICU Addmission:: Acute respiratory failure due to hypoxia and hypercapnia, possible COVID-19 - Medications: Medications reviewed and adjusted accordingly: Yes Vasopressors:: None Sedation:: None Physical Exam Vital Signs: Temp Pulse Resp BP Pulse Ox 98.1 F 94 27 H 106/60 95 02/20/20 02:04 02/21/20 07:00 02/21/20 10:00 02/21/20 09:22 02/21/20 10:00 Intake & Output 02/20/20 02/21/20 02/22/20 06:59 06:59 06:59 Intake Total 2662 1098 Output Total 80 650 200 Balance 2582 448 -200 Weight 64.2 kg 63.8 kg Weight/Height Weight 63.8 kg Height 5 ft 9 in General appearance: PRESENT: no acute distress, cooperative, disheveled, thin Head exam: PRESENT: atraumatic, normocephalic Eye exam: PRESENT: conjunctiva pink, EOMI, PERRLA. ABSENT: scleral icterus Ear exam: PRESENT: normal external ear exam Mouth exam: PRESENT: moist, tongue midline Respiratory exam: PRESENT: decreased breath sounds, rhonchi, tachypnea, other - Increased AP diameter. Cardiovascular exam: PRESENT: irregular rhythm, tachycardia GI/Abdominal exam: PRESENT: normal bowel sounds, soft. ABSENT: distended, guarding, mass, organolmegaly, rebound, tenderness Rectal exam: PRESENT: deferred Gentrourinary exam: PRESENT: indwelling catheter Neurological exam: PRESENT: alert, awake, oriented to person, oriented to place, oriented to time, oriented to situation, CN II-XII grossly intact. ABSENT: motor sensory deficit Psychiatric exam: PRESENT: appropriate affect, normal mood. ABSENT: homicidal ideation, suicidal ideation Skin exam: PRESENT: dry, intact, warm. ABSENT: cyanosis, rash Tubes/Lines: PRESENT: Central Line, Peg Tube Laboratory/Radiographs Laboratory Results: 02/21/20 05:19 02/21/20 05:19 02/21/20 02/21/20 02/21/20 05:19 05:19 05:19 WBC 12.6 H RBC 3.84 L Hgb 12.4 L D Hct 36.5 L MCV 95 MCH 32.3 MCHC 34.0 RDW 15.5 H Plt Count 169 Seg Neutrophils % Not Reportable Sodium 136.1 L Potassium 4.4 Chloride 108 H Carbon Dioxide 22 Anion Gap 6 BUN 40 H Creatinine 1.16 Est GFR ( Amer) > 60 Glucose 125 H Calcium 8.7 TSH 1.30 02/20/20 01:42 Tracheal Aspirate Gram Stain - Final 02/19/20 21:20 Blood Blood Culture (PCR) - Final 02/19/20 21:04 Troponin I 0.057 Impressions: Chest X-Ray 02/19/20 20:55 IMPRESSION: 1. Significant interval increase in multifocal airspace opacities. Findings are nonspecific and differential diagnosis includes both infectious and inflammatory causes. Underlying lesion is not excluded. 2. Persistent enlargement of the cardiac silhouette. All labs, radiographs, diagnostic studies and EKGs were personally reviewed: Yes In addition, reports of radiographic and diagnostic studies were read: Yes Assessment and Plan - Diagnosis (1) Acute on chronic respiratory failure with hypoxia and hypercapnia Is this a current diagnosis for this admission?: Yes Plan: Resolved and off ventilatory but still with much secretions and need for frequent suctioning. 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 (2) Atrial fibrillation with rapid ventricular response Is this a current diagnosis for this admission?: Yes Plan: Now on his PO cardizem and digoxin. He also has IV bolus dosing of cardizem. (3) COPD exacerbation Is this a current diagnosis for this admission?: Yes Plan: His COPD is being exacerbated by his PNA. His HR is also worsened by his pulmonary status. (4) HTN (hypertension) Qualifiers: Hypertension type: essential hypertension Qualified Code(s): I10 - Essential (primary) hypertension Is this a current diagnosis for this admission?: Yes Plan: Controlled (5) History of malignant neoplasm of esophagus Is this a current diagnosis for this admission?: Yes Plan: This is the reason for his PEG and need for tuibe feeds which will be restarted. (6) Pneumonia Qualifiers: Pneumonia type: due to unspecified organism Laterality: bilateral Lung location: unspecified part of lung Qualified Code(s): J18.9 - Pneumonia, unspecified organism Is this a current diagnosis for this admission?: Yes Plan: Continue antibiotics and await Covid testing. Plan Summary: Keep in the ICU today for pulmonary suctioning. He is at risk for mucous plugging. Critical Time Critical Time (minutes): 35 Level of Care: ICU Anticipated discharge: Home with Homehealth Within: Other -: 1. The care of a critical patient is a dynamic process. This note is a r epresentative synopsis but static in nature. The timeframe for treatments given in order is not necessarily the actual time these treatments may have been done. 2. This patient requires critical care secondary to ongoing requirements for therapy not offered or safe outside the critical care environment. Transfer to a lower level of care will result in altered life or limb morbidity and mortali ty. 3. Multidisciplinary rounds completed. 4. ABCDE bundle addressed.
[2020-02-21] MEDS: DILTIAZEM HCL 60 MG TABLET PEG SCH (21:39)
[2020-02-22] MEDS: INSULIN REG, HUMAN 100 UNIT/ML 3 ML VIAL (PYX) SUBCUT SCH ×3 (05:13→17:38)
[2020-02-22] MEDS: METHYLPREDNISOLONE INJ 125 MG/2 ML SDV IV SCH ×3 (05:14→21:02)
[2020-02-22] MEDS: ENOXAPARIN SODIUM INJ 40 MG/0.4 ML DISP.SYRIN SUBCUT SCH ×2 (05:14→18:37)
[2020-02-22] MEDS: ASCORBIC ACID 500 MG TABLET PEG SCH ×3 (05:14→17:37)
[2020-02-22] MEDS: PANTOPRAZOLE SODIUM 40 MG PACKET.DR NG SCH (05:15)
[2020-02-22] MEDS: RINGERS SOLUTION,LACTATED 1,000 ML IV PRN ×2 (05:17→21:30)
[2020-02-22] MEDS ORDERED: MIDAZOLAM 2 MG/2 ML INJ IV ONE ×2 (08:34→08:37)
[2020-02-22] MEDS ORDERED: FENTANYL CITRATE INJ/PF 100 MCG/2 ML AMPUL IV ONE (08:35)
[2020-02-22] MEDS: ZINC SULFATE 220 MG CAPSULE PEG SCH (09:33)
[2020-02-22] MEDS: DILTIAZEM HCL 60 MG TABLET PEG SCH ×2 (09:33→21:02)
[2020-02-22] MEDS: CHOLECALCIFEROL (D3) 1,000 UNIT (25 MCG) TABLET PEG SCH (09:34)
[2020-02-22] MEDS: DIGOXIN 0.25 MG TABLET PEG SCH (09:34)
[2020-02-22] MEDS: PANTOPRAZOLE SODIUM 40 MG VIAL IV SCH (09:35)
[2020-02-22] MEDS: CEFEPIME HCL 2 GM in DEXTROSE 5%-WATER 50 ML IV SCH ×2 (09:47→21:51)
--- NOTE | 2020-02-22 10:37 | PDOC CRITICAL CARE PROG REPORT ---
General Date:: 02/22/20 ICU Day:: 3 Hospital Day:: 3 Resuscitation Status: Full Code Events in the past 12 to 24 Hours:: Doing well off vent. Breathing close to baseline. Wants to eat. Review of systems relevant to events:: Respiratory Reason for ICU Addmission:: All ICU criteria resolved, downgraded today. - Medications: Medications reviewed and adjusted accordingly: Yes Vasopressors:: None Sedation:: None Physical Exam Vital Signs: Temp Pulse Resp BP Pulse Ox 98.1 F 94 27 H 108/63 98 02/20/20 02:04 02/21/20 19:00 02/22/20 10:00 02/22/20 09:23 02/22/20 10:00 Intake & Output 02/21/20 02/22/20 02/23/20 06:59 06:59 06:59 Intake Total 1098 400 Output Total 650 1500 250 Balance 448 -1100 -250 Weight 63.8 kg 63.3 kg Weight/Height Weight 63.3 kg Height 5 ft 9 in General appearance: PRESENT: no acute distress, thin Head exam: PRESENT: atraumatic, normocephalic Eye exam: PRESENT: conjunctiva pink, EOMI, PERRLA. ABSENT: scleral icterus Ear exam: PRESENT: normal external ear exam Mouth exam: PRESENT: moist, tongue midline Neck exam: PRESENT: tracheostomy Respiratory exam: PRESENT: clear to auscultation nelson, decreased breath sounds. ABSENT: rales, rhonchi, wheezes Cardiovascular exam: PRESENT: irregular rhythm. ABSENT: diastolic murmur, rubs, systolic murmur GI/Abdominal exam: PRESENT: normal bowel sounds, soft, other - PEG site clean. ABSENT: distended, guarding, mass, organolmegaly, rebound, tenderness Rectal exam: PRESENT: deferred Extremities exam: PRESENT: full ROM. ABSENT: calf tenderness, clubbing, pedal edema Neurological exam: PRESENT: alert, awake, oriented to person, oriented to place, oriented to time, oriented to situation, CN II-XII grossly intact. ABSENT: motor sensory deficit Psychiatric exam: PRESENT: appropriate affect, normal mood. ABSENT: homicidal ideation, suicidal ideation Skin exam: PRESENT: dry, intact, warm, other - Multiple areas of skin cancer on head and both arms and hands.. ABSENT: cyanosis, rash Tubes/Lines: PRESENT: Peg Tube, Other - Tracheostomy Laboratory/Radiographs Laboratory Results: 02/21/20 05:19 02/21/20 05:19 02/20/20 01:42 Tracheal Aspirate Gram Stain - Final 02/19/20 21:20 Blood Blood Culture (PCR) - Final 02/19/20 21:04 Troponin I 0.057 Impressions: Chest X-Ray 02/19/20 20:55 IMPRESSION: 1. Significant interval increase in multifocal airspace opacities. Findings are nonspecific and differential diagnosis includes both infectious and inflammatory causes. Underlying lesion is not excluded. 2. Persistent enlargement of the cardiac silhouette. EKG: Afib, R axis. All labs, radiographs, diagnostic studies and EKGs were personally reviewed: Yes In addition, reports of radiographic and diagnostic studies were read: Yes Assessment and Plan - Diagnosis (1) Acute on chronic respiratory failure with hypoxia and hypercapnia Is this a current diagnosis for this admission?: Yes Plan: Resolved. Secretions less. However should he need further suctioning to prevent mucous plugging [place] [facility] [place] (2) Atrial fibrillation with rapid ventricular response Is this a current diagnosis for this admission?: Yes Plan: Chronic. He is on his PO digoxin and cardizem and PRN IV cardizem. (3) COPD exacerbation Is this a current diagnosis for this admission?: Yes Plan: Resolved. (4) HTN (hypertension) Qualifiers: Hypertension type: essential hypertension Qualified Code(s): I10 - Essential (primary) hypertension Is this a current diagnosis for this admission?: Yes Plan: Controlled (5) History of malignant neoplasm of esophagus Is this a current diagnosis for this admission?: Yes Plan: Old and resolved (6) Pneumonia Qualifiers: Pneumonia type: due to unspecified organism Laterality: bilateral Lung location: unspecified part of lung Qualified Code(s): J18.9 - Pneumonia, unspecified organism Is this a current diagnosis for this admission?: Yes Plan: Clinically resolved still on antibiotics. Plan Summary: Transfer today to [facility]. Critical Time Critical Time (minutes): 30 Level of Care: [facility] Anticipated discharge: Home with Homehealth Within: Other -: 1. The care of a critical patient is a dynamic process. This note is a marketing representative synopsis but static in nature. The timeframe for treatments given in order is not necessarily the actual time these treatments may have been done. 2. This patient requires critical care secondary to ongoing requirements for therapy not offered or safe outside the critical care environment. Transfer to a lower level of care will result in altered life or limb morbidity and mortality. 3. Multidisciplinary rounds completed. 4. ABCDE bundle addressed.
[2020-02-22] MEDS ORDERED: PROPOFOL 1,000 MG/100 ML INFUS..BTL IV PRN (10:51)
[2020-02-22] MEDS: DILTIAZEM HCL INJ 25 MG/5 ML VIAL IV PRN (17:37)
--- NOTE | 2020-02-22 18:38 | CDI QUERY ---
CDI Query CDI Review: Dear Provider: To better reflect your patients severity of illness, morbidity, and resource utilization Please specify and document in the Progress Notes and Discharge Summary if you are monitoring / treating / evaluating any of the following conditions: Query Clinical indicators Please clarify and document if the pneumonia can be further specified: Aspiration pneumonia Gram negative wilman pneumonia Streptococcus Pneumoniae Pneumonia Unable to determine Other Per Critical Care Notes: CXR appears to be of a viral pneumonia pattern and with patchy bilateral lower lobe/lateral infiltrate appearance is certainly concerning for COVID characteristics. Since QTc is presently acceptable, we will place him on Plaquenil, Vit C, Vit D, Zinc, and empiric Zyvox (given hx MRSA PNA), Azithromax, and Cefepime (allergic reaction unlikely given 4th gen cephalosporin). has an established tracheostomy and PEG feeding tube for which the cuffed trach cannula was changed out in the ED with another #8 cuffed cannula given the purulent and malodorous appearance/smell per the ER physician. The patient required intubation in the emergency department for which ICU was consulted for ventilator management Tracheal Aspirate culture: Gram negative rods Streptococcus Pneumoniae Corynebacterium Striatum The terms probable, suspected, likely, possible or still to be ruled out may be used if you are unable to determine the exact nature of a condition. Thank you for your consideration, Clinical Documentation Physician Advisors CARIE Leal RN, BSN RN Office [phone] Office [phone]
[2020-02-22] MEDS: ENOXAPARIN SODIUM INJ 60 MG/0.6 ML DISP.SYRIN SUBCUT SCH (18:41)
[2020-02-23] MEDS: INSULIN REG, HUMAN 100 UNIT/ML 3 ML VIAL (PYX) SUBCUT SCH ×4 (00:55→18:04)
[2020-02-23] MEDS: ASCORBIC ACID 500 MG TABLET PEG SCH ×4 (00:55→18:04)
[2020-02-23] MEDS: METHYLPREDNISOLONE INJ 125 MG/2 ML SDV IV SCH (06:19)
[2020-02-23] MEDS: ENOXAPARIN SODIUM INJ 60 MG/0.6 ML DISP.SYRIN SUBCUT SCH (06:20)
[2020-02-23] MEDS: CEFEPIME HCL 2 GM in DEXTROSE 5%-WATER 50 ML IV SCH ×2 (09:24→22:07)
[2020-02-23] MEDS: CHOLECALCIFEROL (D3) 1,000 UNIT (25 MCG) TABLET PEG SCH (09:25)
[2020-02-23] MEDS: DILTIAZEM HCL 60 MG TABLET PEG SCH ×2 (09:25→22:06)
[2020-02-23] MEDS: APIXABAN 5 MG TABLET PO SCH ×2 (09:25→18:04)
[2020-02-23] MEDS: DIGOXIN 0.25 MG TABLET PEG SCH (09:25)
[2020-02-23] MEDS: ZINC SULFATE 220 MG CAPSULE PEG SCH (10:46)
[2020-02-23] MEDS: RINGERS SOLUTION,LACTATED 1,000 ML IV PRN (12:58)
[2020-02-23] MEDS: METHYLPREDNISOLONE INJ 40 MG/1 ML SDV IV SCH ×2 (13:29→22:07)
[2020-02-23] MEDS ORDERED: ENOXAPARIN SODIUM INJ 60 MG/0.6 ML DISP.SYRIN SUBCUT SCH (19:00)
[2020-02-24] MEDS: INSULIN REG, HUMAN 100 UNIT/ML 3 ML VIAL (PYX) SUBCUT SCH ×4 (00:33→18:34)
[2020-02-24] MEDS: ASCORBIC ACID 500 MG TABLET PEG SCH ×4 (01:24→18:27)
[2020-02-24] MEDS: METHYLPREDNISOLONE INJ 40 MG/1 ML SDV IV SCH (06:17)
[2020-02-24] MEDS: RINGERS SOLUTION,LACTATED 1,000 ML IV PRN (06:21)
--- NOTE | 2020-02-24 07:54 | Operative Report ---
Operative Report DATE OF SURGERY: 02/24/20 PREOPERATIVE DIAGNOSIS: Displaced percutaneous endoscopic gastrostomy tube POSTOPERATIVE DIAGNOSIS: Same OPERATION: Replacement of percutaneous endoscopic gastrostomy tube SURGEON: CASSIE MARTINEZ ANESTHESIA: Other - None TISSUE REMOVED OR ALTERED: None COMPLICATIONS: None ESTIMATED BLOOD LOSS: None INTRAOPERATIVE FINDINGS: Well-formed percutaneous endoscopic gastrostomy tube tract PROCEDURE: Asked to replace gastrostomy tube that the patient pulled last night. Patient has had a percutaneous endoscopic gastrostomy tube for many months. He pulled it out last night. Nursing staff inserted a tube to keep the tract open. On exam he has a well-formed gastrostomy tract consistent with a longstanding gastrostomy. Using a 22 Urdu replacement gastrostomy kit, a new gastrostomy tube was inserted without difficulty and the balloon was inflated and the tube appropriately positioned. The nursing staff may use the tube. No radiologic study is required in this setting. Patient tolerated procedure well with no apparent complications.
--- NOTE | 2020-02-24 08:56 | PDOC PROGRESS REPORT ---
Subjective Progress Note for:: 02/23/20 Subjective:: Patient was transferred to my service post extubation and down graded from ICU on 02/22/2020. Sitting in bed and tolerating oral medication administration. Remain on tracheal collar oxygen supplementation. Denied any chest pain. No fever or chills. No nausea, vomiting or abdominal pain. Reason For Visit: ACUTE RESPIRATORY FAILURE DUE TO HYPOXIA AND Physical Exam Vital Signs: Temp Pulse Resp BP Pulse Ox 97.5 F 87 20 121/58 L 97 02/23/20 08:02 02/23/20 14:00 02/23/20 08:02 02/23/20 08:02 02/23/20 12:40 Intake & Output 02/22/20 02/23/20 02/24/20 06:59 06:59 06:59 Intake Total 400 2176 2837 Output Total 1500 1250 400 Balance -7807 627 1289 Weight 63.3 kg 61.6 kg General appearance: PRESENT: mild distress - on supplemental oxygen Head exam: PRESENT: atraumatic, normocephalic Eye exam: PRESENT: conjunctiva pink. ABSENT: scleral icterus Ear exam: PRESENT: normal external ear exam Mouth exam: PRESENT: moist Neck exam: PRESENT: tracheostomy Respiratory exam: PRESENT: crackles, decreased breath sounds - at lung bases, rhonchi Cardiovascular exam: PRESENT: irregular rhythm, +S1, +S2. ABSENT: diastolic murmur, systolic murmur Vascular exam: ABSENT: pallor GI/Abdominal exam: PRESENT: normal bowel sounds, soft, other - PEG site okay. ABSENT: distended, guarding, mass, organolmegaly, rebound, tenderness Extremities exam: ABSENT: pedal edema Neurological exam: PRESENT: alert, awake, oriented to person, oriented to place, oriented to time, oriented to situation, CN II-XII grossly intact. ABSENT: motor sensory deficit Psychiatric exam: PRESENT: appropriate affect, normal mood. ABSENT: homicidal ideation, suicidal ideation Skin exam: PRESENT: dry, warm, other - multiple inflammatory seborrheic lesions on scalp Results Laboratory Results: 02/21/20 05:19 02/21/20 05:19 02/19/20 21:20 Blood Blood Culture (PCR) - Final 02/19/20 21:20 Blood Blood Culture - Final Corynebacterium Species Bacillus Sp. Not Anthracis 02/20/20 01:42 Tracheal Aspirate Gram Stain - Final 02/20/20 01:42 Tracheal Aspirate Sputum Culture - Final Stenotrophomonas Maltophilia Acinetobacter Baumannii/Haem Streptococcus Pneumoniae Corynebacterium Striatum Normal Gris Absent 02/19/20 23:27 Rojas Catheter Legionella Urinary Antigen - Final 02/19/20 21:04 Troponin I 0.057 Impressions: Chest X-Ray 02/19/20 20:55 IMPRESSION: 1. Significant interval increase in multifocal airspace opacities. Findings are nonspecific and differential diagnosis includes both infectious and inflammatory causes. Underlying lesion is not excluded. 2. Persistent enlargement of the cardiac silhouette. Assessment & Plan - Diagnosis (1) Acute on chronic respiratory failure with hypoxia and hypercapnia Is this a current diagnosis for this admission?: Yes Plan: Maintain on current supportive care. Post extubation and remain stable clinically. (2) Streptococcus pneumoniae pneumonia Qualifiers: Laterality: bilateral Lung location: lower lobe of lung Qualified Code(s): J13 - Pneumonia due to Streptococcus pneumoniae Is this a current diagnosis for this admission?: Yes Plan: Continue IV Cefepime coverage. (3) Chronic atrial fibrillation with rapid ventricular response Is this a current diagnosis for this admission?: Yes Plan: Change to preadmission anticoagulation therapy with Eliquis 5 mg p.o bid. D/C Lovenox. (4) Chronic obstructive pulmonary disease with (acute) exacerbation Is this a current diagnosis for this admission?: Yes Plan: Decrease IV Solu Medrol to 40 mg q 8hpurs. Continue all other bronchodilators therapy. (5) HTN (hypertension) Qualifiers: Hypertension type: essential hypertension Qualified Code(s): I10 - Essen tial (primary) hypertension Is this a current diagnosis for this admission?: Yes Plan: Continue current medication management. (6) History of malignant neoplasm of esophagus Is this a current diagnosis for this admission?: Yes Plan: Continue current medication management. (7) History of skin cancer in adulthood Is this a current diagnosis for this admission?: Yes Plan: Continue current medication management. - Time Time Spent with patient: 25-34 minutes Level of Care: IMCU Medications reviewed and adjusted accordingly: Yes Anticipated discharge: Home with Homehealth Within: Other - Inpatient Certification Based on my medical assessment, after consideration of the patient's comorbidities, presenting symptoms, or acuity I expect that the services needed warrant INPATIENT care.: Yes I certify that my determination is in accordance with my understanding of Medicare's requirements for reasonable and necessary INPATIENT services [42 CFR 412.3e].: Yes Medical Necessity: Significant Comorbidiites Make Outpatient Treatment Too Risky, Need Close Monitoring Due to Risk of Patient Decompensation, Need For IV Fluids, Need For Continuous Telemetry Monitoring, Need for Nebulizer Therapy and Monitoring of Response, Need for IV Antibiotics, Risk of Complication if Not Cared For in Hospital, Risk of Diagnosis Which Will Require Inpatient Eval/Care/Monitoring Post Hospital Care: D/C Nurse Extern Documentation - Plan Summary Plan Summary: See attending physician orders about details of care plan.
--- NOTE | 2020-02-24 09:02 | PDOC PROGRESS REPORT ---
Subjective Progress Note for:: 02/24/20 Subjective:: Patient had PEG replacement since last clinical evaluation due to accidental dislodgment. He continue to eat orally. He denied any chest pain. No fever or chills. No abdominal pain, nausea, vomiting or abdominal pain. Reason For Visit: ACUTE RESPIRATORY FAILURE DUE TO HYPOXIA AND Physical Exam Vital Signs: Temp Pulse Resp BP Pulse Ox 97.3 F 104 H 16 102/61 95 02/24/20 07:55 02/24/20 07:55 02/24/20 07:55 02/24/20 07:55 02/24/20 07:55 Intake & Output 02/23/20 02/24/20 02/25/20 06:59 06:59 06:59 Intake Total 2176 5285 Output Total 1250 1125 Balance 926 4160 Weight 61.6 kg 64.4 kg Physical Exam: General appearance: PRESENT: mild distress - on supplemental oxygen Head exam: PRESENT: atraumatic, normocephalic Eye exam: PRESENT: conjunctiva pink. ABSENT: pallor, scleral icterus Ear exam: PRESENT: normal external ear exam Mouth exam: PRESENT: moist Neck exam: PRESENT: tracheostomy Respiratory exam: PRESENT: crackles, decreased breath sounds - at lung bases, rhonchi Cardiovascular exam: PRESENT: irregular rhythm, +S1, +S2. ABSENT: diastolic murmur, systolic murmur GI/Abdominal exam: PRESENT: normal bowel sounds, soft, other - PEG site okay. ABSENT: distended, guarding, mass, organomegaly, rebound, tenderness Extremities exam: ABSENT: pedal edema Neurological exam: PRESENT: alert, awake, oriented to person, oriented to place, oriented to time, oriented to situation, CN II-XII grossly intact. ABSENT: motor sensory deficit Psychiatric exam: PRESENT: appropriate affect, normal mood. ABSENT: homicidal ideation, suicidal ideation Skin exam: PRESENT: dry, warm, other - multiple inflammatory seborrheic lesions on scalp Results Laboratory Results: 02/21/20 05:19 02/21/20 05:19 02/19/20 21:20 Blood Blood Culture (PCR) - Final 02/19/20 21:20 Blood Blood Culture - Final Corynebacterium Species Bacillus Sp. Not Anthracis 02/20/20 01:42 Tracheal Aspirate Gram Stain - Final 04/18/20 01:42 Tracheal Aspirate Sputum Culture - Final Stenotrophomonas Maltophilia Acinetobacter Baumannii/Haem Streptococcus Pneumoniae Corynebacterium Striatum Normal Gris Absent 02/19/20 23:27 Rojas Catheter Legionella Urinary Antigen - Final 02/19/20 21:04 Troponin I 0.057 Impressions: Chest X-Ray 02/19/20 20:55 IMPRESSION: 1. Significant interval increase in multifocal airspace opacities. Findings are nonspecific and differential diagnosis includes both infectious and inflammatory causes. Underlying lesion is not excluded. 2. Persistent enlargement of the cardiac silhouette. Assessment & Plan - Diagnosis (1) Acute on chronic respiratory failure with hypoxia and hypercapnia Is this a current diagnosis for this admission?: Yes (2) Streptococcus pneumoniae pneumonia Qualifiers: Laterality: bilateral Lung location: lower lobe of lung Qualified Code(s): J13 - Pneumonia due to Streptococcus pneumoniae Is this a current diagnosis for this admission?: Yes (3) Chronic atrial fibrillation with rapid ventricular response Is this a current diagnosis for this admission?: Yes (4) Chronic obstructive pulmonary disease with (acute) exacerbation Is this a current diagnosis for this admission?: Yes (5) HTN (hypertension) Qualifiers: Hypertension type: essential hypertension Qualified Code(s): I10 - Essential (primary) hypertension Is this a current diagnosis for this admission?: Yes (6) History of malignant neoplasm of esophagus Is this a current diagnosis for this admission?: Yes (7) History of skin cancer in adulthood Is this a current diagnosis for this admission?: Yes - Time Time Spent with patient: 25-34 minutes Level of Care: IMCU Medications reviewed and adjusted accordingly: Yes Anticipated discharge: Home with Homehealth Within: Other - Inpatient Certification Based on my medical assessment, after consideration of the patient's comorb idities, presenting symptoms, or acuity I expect that the services needed warrant INPATIENT care.: Yes I certify that my determination is in accordance with my understanding of Medicare's requirements for reasonable and necessary INPATIENT services [42 CFR 412.3e].: Yes Medical Necessity: Significant Comorbidiites Make Outpatient Treatment Too Risky, Need Close Monitoring Due to Risk of Patient Decompensation, Need For IV Fluids, Need For Continuous Telemetry Monitoring, Need for IV Antibiotics, Risk of Complication if Not Cared For in Hospital, Risk of Diagnosis Which Will Require Inpatient Eval/Care/Monitoring Post Hospital Care: D/C Gun Stock Checker Documentation - Plan Summary Plan Summary: D/C IV Cefepime. Start on oral Cefpodoxime 200 mg p.o bid. D/C IV Ringer Lactate infusion. D/C IV Solu Medrol. Start on Prednisone 30 mg po daily with intent to taper off. Continue all other current medication management. D/C Roajs Catheter.
[2020-02-24] MEDS: ZINC SULFATE 220 MG CAPSULE PEG SCH (10:03)
[2020-02-24] MEDS: CHOLECALCIFEROL (D3) 1,000 UNIT (25 MCG) TABLET PEG SCH (10:03)
[2020-02-24] MEDS: DILTIAZEM HCL 60 MG TABLET PEG SCH (10:04)
[2020-02-24] MEDS: CEFPODOXIME 200 MG TABLET PO SCH (10:04)
[2020-02-24] MEDS: PREDNISONE 20 MG TABLET PO SCH (10:04)
[2020-02-24] MEDS: APIXABAN 5 MG TABLET PO SCH ×2 (10:04→18:27)
[2020-02-24] MEDS: DIGOXIN 0.25 MG TABLET PEG SCH (10:04)
[2020-02-25] MEDS: ASCORBIC ACID 500 MG TABLET PEG SCH ×2 (00:07→06:14)
[2020-02-25] MEDS: CEFPODOXIME 200 MG TABLET PO SCH ×2 (00:09→10:45)
[2020-02-25] MEDS: DILTIAZEM HCL 60 MG TABLET PEG SCH ×2 (00:09→10:42)
[2020-02-25] MEDS: INSULIN REG, HUMAN 100 UNIT/ML 3 ML VIAL (PYX) SUBCUT SCH ×2 (00:11→06:51)
[2020-02-25] MEDS: APIXABAN 5 MG TABLET PO SCH (10:38)
[2020-02-25] MEDS: CHOLECALCIFEROL (D3) 1,000 UNIT (25 MCG) TABLET PEG SCH (10:38)
[2020-02-25] MEDS: DIGOXIN 0.25 MG TABLET PEG SCH (10:38)
[2020-02-25] MEDS: PREDNISONE 20 MG TABLET PO SCH (10:42)
[2020-02-25] MEDS: ZINC SULFATE 220 MG CAPSULE PEG SCH (10:44)
[2020-02-25 14:39] VITALS: BP 130/59
--- NOTE | 2020-02-25 17:29 | PDOC DISCHARGE SUMMARY ---
Impression - Admit/DC Date/PCP Admission Date/Primary Care Provider: 02/20/20 00:10 MARCOS WILSON MD Discharge Date: 02/25/20 - Discharge Diagnosis (1) Acute on chronic respiratory failure with hypoxia and hypercapnia Is this a current diagnosis for this admission?: Yes (2) Streptococcus pneumoniae pneumonia Is this a current diagnosis for this admission?: Yes (3) Chronic atrial fibrillation with rapid ventricular response Is this a current diagnosis for this admission?: Yes (4) Chronic obstructive pulmonary disease with (acute) exacerbation Is this a current diagnosis for this admission?: Yes (5) HTN (hypertension) Is this a current diagnosis for this admission?: Yes (6) History of malignant neoplasm of esophagus Is this a current diagnosis for this admission?: Yes (7) History of skin cancer in adulthood Is this a current diagnosis for this admission?: Yes - Assessment Summary: He was admitted to ICU for acute respiratory failure with hypoxemia and hypercapnia. He was managed with ventilatory support and antibiotic for streptococcal pneumoniae. He was eventually downgraded and transferred to [facility] on IMCU. His blood culture is no growth x 5 days. He has remain on adequate antibiotic coverage and transition to oral Vantin due to his history of Penicillin allergy. He will follow up in the office as instructed upon discharge. - Additional Information Resuscitation Status: Full Code Discharge Diet: Cardiac Discharge Activity: Activity As Tolerated Referrals: YAMILETH ROCKWELL PA-C [ALLIED HEALTH PROFESSIONAL] - Follow up as needed DEYSI CONTRERAS MD [ACTIVE STAFF] - 03/02/20 10:00 am Prescriptions: Prednisone [Deltasone 5 mg Tablet] 5 mg PO DAILY #22 tablet Cefpodoxime Proxetil [Vantin 200 mg Tablet] 200 mg PO Q12 #10 tablet Zinc Sulfate [Zinc-220 Capsule] 220 mg PEG DAILY #30 capsule Home Medications: Hydroxyzine Pamoate [Vistaril] 25 mg PO HSP PRN 11/05/19 Omeprazole 20 mg PO Q12 11/05/19 Oxycodone HCl/Acetaminophen [Oxycodone-Acetaminophen 10-325] 1 tab PO Q4HP PRN 11/05/19 Tizanidine HCl 2 mg PO HSP PRN 11/05/19 Apixaban [Eliquis 5 mg Tablet] 5 mg PO Q12 #60 tablet 11/13/19 Digoxin [Lanoxin 0.25 mg Tablet] 0.25 mg PO DAILY #30 11/13/19 Diltiazem HCl [Cardizem Cd 120 mg Capsule] 120 mg PO DAILY #30 cap.sr.24h 11/13/19 Albuterol Sulfate [Ventolin 0.083% Neb 2.5 mg/3 mL Ampul] 2.5 mg NEB RTQIDP PRN 02/20/20 Cefpodoxime Proxetil [Vantin 200 mg Tablet] 200 mg PO Q12 #10 tablet 02/25/20 Prednisone [Deltasone 5 mg Tablet] 5 mg PO DAILY #22 tablet 02/25/20 Zinc Sulfate [Zinc-220 Capsule] 220 mg PEG DAILY #30 capsule 02/25/20 History of Present Illiness History of Present Illness: RUKHSANA GRAHAM is a 69 year old male with a past medical history significant for tobacco abuse, CAD status post CABG, CHF with an EF of 20% in November 2019, hypertension, hyperlipidemia, chronic atrial fibrillation reportedly on Eliquis, respiratory failure for which he has an established tracheostomy, pneumonia, and COPD who presented to [facility] ED with complaints of shortness of breath that occurred shortly prior to arrival while the patient was shopping at [facility]. His shortness of breath began earlier in the morning on 02/19/2020 progressively becoming worse throughout the day. Upon EMS arrival to [facility], the SPO2 was noted to be in the 80s with improvement to 95% on 6 L via nasal cannula. He was also found to be in atrial fibrillation RVR with a heart rate of 209 bpm. EMS administered 15 mg of diltiazem followed by an infusion in route which has since been discontinued. Patient received 2L of normal saline in the ED with concern for sepsis. To note, patient has no leukocytosis/leukopenia or left shift, though there is a lactic acidemia of 4.6. EMS reportedly verbally screened for COVID-19 at [facility] for which she denied fever, diagnosis of COVID, or recent exposure to anyone with COVID. However, I will say that his chest x-ray is concerning for a viral pneumonia with a possibility of COVID-19. Patient has an established tracheostomy and PEG feeding tube for which the cuffed trach cannula was changed out in the ED with another #8 cuffed cannula given the purulent and malodorous appearance/smell per the ER physician. The patient required intubation in the emergency department for which ICU was consulted for ventilator management. POCUS performed by myself in the ED demonstrates EF <20% for which a digoxin level will be checked and the medication resumed if not toxic. Patient to be transferred to the ICU. To note, per medical record review, patient has a history of medication non- compliance. Hospital Course Hospital Course: He was admitted to ICU for acute respiratory failure with hypoxemia and hypercapnia. He was managed with ventilatory support and antibiotic for streptococcal pneumoniae. He was eventually downgraded and transferred to my service on IMCU. His blood culture is no growth x 5 days. He has remain on adequate antibiotic coverage and transition to oral Vantin due to his history of Penicillin allergy. He will follow up in the office as instructed upon discharge. Physical Exam Vital Signs: Temp Pulse Resp BP Pulse Ox 98.1 F 81 18 139/75 H 97 02/25/20 08:02 02/25/20 08:02 02/25/20 08:02 02/25/20 08:02 02/25/20 08:02 Intake & Output 02/24/20 02/25/20 02/26/20 06:59 06:59 06:59 Intake Total 5285 2824 435 Output Total 1125 351 Balance 4160 6643 435 Weight 64.4 kg 66.3 kg General appearance: PRESENT: mild distress - on supplemental oxygen Head exam: PRESENT: atraumatic, normocephalic Eye exam: PRESENT: conjunctiva pink. ABSENT: pallor, scleral icterus Ear exam: PRESENT: normal external ear exam Mouth exam: PRESENT: moist Neck exam: PRESENT: tracheostomy Respiratory exam: PRESENT: decreased breath sounds - at lung bases, rhonchi Cardiovascular exam: PRESENT: irregular rhythm, +S1, +S2. ABSENT: diastolic murmur, systolic murmur GI/Abdominal exam: PRESENT: normal bowel sounds, soft, other - PEG site okay. ABSENT: distended, guarding, mass, organomegaly, rebound, tenderness Extremities exam: ABSENT: pedal edema Neurological exam: PRESENT: alert, awake, oriented to person, oriented to place, oriented to time, oriented to situation, CN II-XII grossly intact. ABSENT: motor sensory deficit Psychiatric exam: PRESENT: appropriate affect, normal mood. ABSENT: homicidal ideation, suicidal ideation Skin exam: PRESENT: dry, warm, other - multiple inflammatory seborrheic lesions on scalp Results Laboratory Results: WBC 12.6 10^3/uL (4.0-10.5) H 02/21/20 05:19 RBC 3.84 10^6/uL (4.35-5.55) L 02/21/20 05:19 Hgb 12.4 g/dL (13.5-17.0) L D 02/21/20 05:19 Hct 36.5 % (37.9-51.0) L 02/21/20 05:19 MCV 95 fl (80-97) 02/21/20 05:19 MCH 32.3 pg (27.0-33.4) 02/21/20 05:19 MCHC 34.0 g/dL (32.0-36.0) 02/21/20 05:19 RDW 15.5 % (11.5-14.0) H 02/21/20 05:19 Plt Count 169 10^3/uL (150-450) 02/21/20 05:19 Lymph % (Auto) Not Reportable 02/21/20 05:19 [place] % (Auto) Not Reportable 02/21/20 05:19 Eos % (Auto) Not Reportable 02/21/20 05:19 Baso % (Auto) Not Reportable 02/21/20 05:19 Absolute Neuts (auto) Not Reportable 02/21/20 05:19 Absolute Lymphs (auto) Not Reportable 02/21/20 05:19 Absolute Monos (auto) Not Reportable 02/21/20 05:19 Absolute Eos (auto) Not Reportable 02/21/20 05:19 Absolute Basos (auto) Not Reportable 02/21/20 05:19 Total Counted 100 02/21/20 05:19 Seg Neutrophils % Not Reportable 02/21/20 05:19 Seg Neuts % (Manual) 97 % (42-78) H 02/21/20 05:19 Lymphocytes % (Manual) 2 % (13-45) L 02/21/20 05:19 Monocytes % (Manual) 1 % (3-13) L 02/21/20 05:19 Eosinophils % (Manual) 0 % (0-6) 02/21/20 05:19 Basophils % (Manual) 0 % (0-2) 02/21/20 05:19 Abs Neuts (Manual) 12.2 10^3/uL (1.7-8.2) H 02/21/20 05:19 Abs Lymphs (Manual) 0.3 10^3/uL (0.5-4.7) L 02/21/20 05:19 Abs Monocytes (Manual) 0.1 10^3/uL (0.1-1.4) 02/21/20 05:19 Absolute Eos (Manual) 0.0 10^3/uL (0.0-0.6) 02/21/20 05:19 Abs Basophils (Manual) 0.0 10^3/uL (0.0-0.2) 02/21/20 05:19 Toxic Granulation SLIGHT 02/21/20 05:19 Platelet Comment ADEQUATE 02/21/20 05:19 Poikilocytosis 1+ 02/21/20 05:19 Anisocytosis 1+ 02/21/20 05:19 Tear Drop Cells SLIGHT 02/21/20 05:19 Ovalocytes 1+ 02/21/20 05:19 PT 16.3 SEC (11.4-15.4) H 02/19/20 21:04 INR 1.30 02/19/20 21:04 D-Dimer 6.75 ug/mL (0.00-0.50) H 02/20/20 01:42 Carbonic Acid 0.87 mmol/L (1.05-1.35) L 02/20/20 05:08 HCO3/H2CO3 Ratio 22:1 02/20/20 05:08 ABG pH 7.45 (7.35-7.45) 02/20/20 05:08 ABG pCO2 28.9 mmHg (35-45) L 02/20/20 05:08 ABG pO2 94.6 mmHg (80-100) 02/20/20 05:08 ABG HCO3 19.6 mmol/L (20-24) L 02/20/20 05:08 ABG Total CO2 20.5 mmol/L (23-27) L 02/20/20 05:08 ABG O2 Saturation 97.6 % (94-98) 02/20/20 05:08 ABG Base Excess -3.1 mmol/L 02/20/20 05:08 FiO2 50% 02/20/20 05:08 Sodium 136.1 mmol/L (137-145) L 02/21/20 05:19 Potassium 4.4 mmol/L (3.6-5.0) 02/21/20 05:19 Chloride 108 mmol/L (98-107) H 02/21/20 05:19 Carbon Dioxide 22 mmol/L (22-30) 02/21/20 05:19 Anion Gap 6 (5-19) 02/21/20 05:19 BUN 40 mg/dL (7-20) H 02/21/20 05:19 Creatinine 1.16 mg/dL (0.52-1.25) 02/21/20 05:19 Est GFR ( Amer) > 60 (>60) 02/21/20 05:19 Est GFR (MDRD) Non-Af > 60 (>60) 02/21/20 05:19 Glucose 125 mg/dL (75-110) H 02/21/20 05:19 POC Glucose 170 mg/dL (70-110) H 02/25/20 11:39 Lactic Acid 1.5 mmol/L (0.7-2.1) 02/20/20 01:42 Calcium 8.7 mg/dL (8.4-10.2) 02/21/20 05:19 Phosphorus 3.9 mg/dL (2.5-4.5) 02/20/20 05:08 Magnesium 2.1 mg/dL (1.6-2.3) 02/20/20 05:08 Ferritin 900.00 ng/mL (17.9-464.0) H 02/20/20 01:42 Total Bilirubin 1.5 mg/dL (0.2-1.3) H 02/19/20 21:04 Direct Bilirubin 0.2 mg/dL (0.0-0.4) 02/19/20 21:04 Neonat Total Bilirubin Not Reportable 02/19/20 21:04 Neonat Direct Bilirubin Not Reportable 02/19/20 21:04 Neonat Indirect Bili Not Reportable 02/19/20 21:04 AST 41 U/L (17-59) 02/19/20 21:04 ALT 20 U/L (<50) 02/19/20 21:04 Alkaline Phosphatase 104 U/L (38-126) 02/19/20 21:04 Troponin I 0.057 ng/mL 02/19/20 21:04 C-Reactive Protein 16.5 mg/L (<10.0) H 02/20/20 01:42 Total Protein 9.4 g/dL (6.3-8.2) H 02/19/20 21:04 Albumin 4.7 g/dL (3.5-5.0) 02/19/20 21:04 Triglycerides 77 mg/dL (<150) 02/20/20 01:42 Procalcitonin 0.38 ng/mL (0.00-0.08) H 02/20/20 01:42 TSH 1.30 uIU/mL (0.47-4.68) 02/21/20 05:19 Urine Color YESENIA 02/19/20 23:27 Urine Appearance CLOUDY 02/19/20 23:27 Urine pH 5.0 (5.0-9.0) 02/19/20 23:27 Ur Specific Kelley 1.018 02/19/20 23:27 Urine Protein >=500 mg/dL (NEGATIVE) H 02/19/20 23:27 Urine Glucose (UA) 50 mg/dL (NEGATIVE) H 02/19/20 23:27 Urine Ketones NEGATIVE mg/dL (NEGATIVE) 02/19/20 23:27 Urine Blood SMALL (NEGATIVE) H 02/19/20 23:27 Urine Nitrite NEGATIVE (NEGATIVE) 02/19/20 23: Urine Bilirubin NEGATIVE (NEGATIVE) 02/19/20 23:27 Urine Urobilinogen 2.0 mg/dL (<2.0) H 02/19/20 23:27 Ur Leukocyte Esterase NEGATIVE (NEGATIVE) 02/19/20 23:27 Urine WBC (Auto) 7 /HPF 02/19/20 23:27 Urine RBC (Auto) 5 /HPF 02/19/20 23:27 U Hyaline Cast (Auto) 25 /LPF 02/19/20 23:27 Squamous Epi Cells Auto 1 /HPF 02/19/20 23:27 Urine Mucus (Auto) RARE /LPF 02/19/20 23:27 Urine Ascorbic Acid NEGATIVE (NEGATIVE) 02/19/20 23:27 Digoxin < 0.40 ng/mL (0.8-2.0) L 02/20/20 01:42 COVID-19 Source NASOPHARYNGEAL 02/19/20 21:31 COVID-19 (RENITA) NOT DETECTED 02/19/20 21:31 02/19/20 21:04 Troponin I 0.057 Impressions: Chest X-Ray 02/19/20 20:55 IMPRESSION: 1. Significant interval increase in multifocal airspace opacities. Findings are nonspecific and differential diagnosis includes both infectious and inflammatory causes. Underlying lesion is not excluded. 2. Persistent enlargement of the cardiac silhouette. Plan Health Concerns: Compliance with medication and follow up management. Plan of Treatment: He will be discharged home on tapering dose of Prednisone and oral Vantin therapy for his pneumonia. Goals: Reduce readmission risk with skill nursing service from home health agency and close follow up for post acute care visit. Stroke Is this a Stroke Patient?: No Acute Heart Failure - Is this a Heart Failure Patient?: No
== END 2020-02-25 14:40 | disposition home health service (06) | DRG 208 ==
LOC: ER 20:38 → EH 02-20 00:10 → ICU 02-20 01:07 → 3W 02-22 13:37
PROVIDERS: ADMIT Internal Medicine Geriatric Medicine; ATTEND Internal Medicine Geriatric Medicine
PROC: 5A1935Z Respiratory Ventilation, Less than 24 Consecutive Hours (ICD-10-PCS; principal; 2020-02-19)
PROC: 0B21XFZ Change Tracheostomy Device in Trachea, External Approach (ICD-10-PCS; 2020-02-19)
PROC: 0DH63UZ Insertion of Feeding Device into Stomach, Percutaneous Approach (ICD-10-PCS; 2020-02-24)
DX: J96.22 Acute and chronic respiratory failure with hypercapnia (principal); J13 Pneumonia due to Streptococcus pneumoniae; E87.4 Mixed disorder of acid-base balance; I50.22 Chronic systolic (congestive) heart failure; I48.20 Chronic atrial fibrillation, unspecified; J44.1 Chronic obstructive pulmonary disease with (acute) exacerbation; C15.9 Malignant neoplasm of esophagus, unspecified; T85.528A Displacement of other gastrointestinal prosthetic devices, implants and grafts, initial encounter; J96.21 Acute and chronic respiratory failure with hypoxia; I11.0 Hypertensive heart disease with heart failure; I25.10 Atherosclerotic heart disease of native coronary artery without angina pectoris; E78.00 Pure hypercholesterolemia, unspecified; I73.9 Peripheral vascular disease, unspecified; G89.29 Other chronic pain; F17.210 Nicotine dependence, cigarettes, uncomplicated; I25.2 Old myocardial infarction; Z95.5 Presence of coronary angioplasty implant and graft; Z93.1 Gastrostomy status; Z95.1 Presence of aortocoronary bypass graft; Z43.0 Encounter for attention to tracheostomy; Z03.818 Encounter for observation for suspected exposure to other biological agents ruled out
CPT/HCPCS: 36415; 36600; 51702; 71045; 80048; 80053; 80162; 81001; 82728; 82803; 82962; 83605; 83735; 84100; 84145; 84443; 84478; 84484; 85025; 85379; 85610; 86140; 87040; 87070; 87077; 87150; 87186; 87205; 87252; 87635; 93005; 93010; 94002; 94003; 96361; 96365; 96375; 99231; 99291; 99292; C9113; J0330; J0456; J0692; J0696; J1650; J1815; J1956; J2020; J2250; J2704; J2920; J2930; J3490; J7030; J7060; J7120; J7512

== ENCOUNTER 2020-03-23 10:57 | Inpatient (IN) | payer MEDICARE, MEDICAID ==
[2020-03-23] MEDS ORDERED: DILTIAZEM HCL/D5W 125 MG/125 ML RTUINJ IV PRN (11:17)
[2020-03-23] MEDS ORDERED: IPRATROPIUM/ALBUTEROL 0.5-2.5 MG/3 ML AMPUL NEB ONE (11:17)
[2020-03-23] MEDS ORDERED: DIGOXIN INJ 0.5 MG/2 ML AMPULE IV ONE ×2 (11:21→12:11)
[2020-03-23 11:35] LABS: ABSOLUTE BASOPHILS # (AUTO) 0.1 10^3/uL (0.0-0.2); ABSOLUTE EOSINOPHILS # (AUTO) 0.1 10^3/uL (0.0-0.6); ABSOLUTE LYMPHOCYTES (AUTO) 1.1 10^3/uL (0.5-4.7); ABSOLUTE MONOCYTES (AUTO) 0.7 10^3/uL (0.1-1.4); ABSOLUTE NEUT (AUTO) 7.1 10^3/uL (1.7-8.2); BASOPHILS % (AUTO) 1.2 % (0-2); HEMATOCRIT 40.8 % (37.9-51.0); HEMOGLOBIN 13.8 g/dL (13.5-17.0); MEAN CORPUSCULAR HEMOGLOBIN 32.3 pg (27.0-33.4); MEAN CORPUSCULAR HGB CONC 33.9 g/dL (32.0-36.0); MEAN CORPUSCULAR VOLUME 95 fl (80-97); MONOCYTES % (AUTO) 7.6 % (3-13); PLATELET COUNT 216 10^3/uL (150-450); RED BLOOD COUNT 4.29 10^6/uL (4.35-5.55); RED CELL DISTRIBUTION WIDTH 15.5 % (11.5-14.0); SEGMENTED NEUTROPHILS % (AUTO) 78.2 % (42-78); TOTAL CELLS COUNTED % (AUTO) 100 %
[2020-03-23] MEDS ORDERED: DILTIAZEM HCL INJ 25 MG/5 ML VIAL ONE (11:44)
[2020-03-23] MEDS ORDERED: FUROSEMIDE INJ/PF 40 MG/4 ML SDV IV ONE (11:47)
--- NOTE | 2020-03-23 11:50 | RADIOLOGY REPORT (SQ) ---
EXAM DESCRIPTION: CHEST SINGLE VIEW IMAGES COMPLETED DATE/TIME: 03/23/2020 11:40 am REASON FOR STUDY: COPD, Afib RVR COMPARISON: 02/19/2020 EXAM PARAMETERS: NUMBER OF VIEWS: One view. TECHNIQUE: Single frontal radiographic view of the chest acquired. RADIATION DOSE: NA LIMITATIONS: None. FINDINGS: LUNGS AND PLEURA: Persistent bilateral interstitial and alveolar airspace disease most lik jenny pulmonary edema. Overall this is slightly improved compared to prior study. Small left effusion . MEDIASTINUM AND HILAR STRUCTURES: No masses. Contour normal. HEART AND VASCULAR STRUCTURES: Heart remains enlarged with central vascular congestion. BONES: No acute findings. HARDWARE: Tracheostomy tube remains in place along with left-sided port and sternotomy wires. OTHER: No other significant finding. IMPRESSION: Persistent bilateral interstitial alveolar airspace disease most likely edema. This is slightly improved from prior study. There is a small left effusion. Heart remains enlarged. Trache ostomy tube remains in place. TECHNICAL DOCUMENTATION: JOB ID: [id number] 2010 [employer]- All Rights Reserved Reading location - IP/workstation name: [email or web address]
[2020-03-23] MEDS ORDERED: DILTIAZEM HCL INJ 25 MG/5 ML VIAL IV ONE (11:54)
--- NOTE | 2020-03-23 11:54 | ER Document Report ---
Entered by YAMILETH OGDEN SCRIBE 03/23/20 1116 Acting as scribe for:TIFFANI MARINO MD ED General - General Chief Complaint: Shortness Of Breath Stated Complaint: SHORTNESS OF BREATH Time Seen by Provider: 03/23/20 11:09 Information source: Patient Notes: This 70-year-old male with COPD, atrial fibrillation and CHF presents to the emergency department via EMS with shortness of breath. Patient's home health nurse was reportedly trying to change his tracheostomy tube but could not due to the sputum. Patient reports yellow sputum. Patient denies chest pain. Patient states that he did not take his dose of Diltiazem today but did take it yesterday. EMS administered Cardizem in route. EMS reports patient having a heart rate ranging from 120-200. Patient reports that his breathing is at baseline now. Patient states he has no complaints at this time. TRAVEL OUTSIDE OF THE [place] IN LAST 30 DAYS: No - Related Data Allergies/Adverse Reactions: Penicillins Allergy (Severe, Verified 12/02/19 13:42) turned blue as acetaminophen [From Tylenol] Allergy (Verified 12/02/19 13:42) aspirin Allergy (Verified 12/02/19 13:42) Past Medical History - General Information source: Patient - Social History Smoking Status: Current Every Day Smoker Cigarette use (# per day): Yes Chew tobacco use (# tins/day): No Frequency of alcohol use: None Drug Abuse: None Family History: Hypertension - Past Medical History Cardiac Medical History: Reports: Hx Atrial Fibrillation, Hx Congestive Heart Failure, Hx Coronary Artery Disease, Hx Heart Attack - 2009 Pulmonary Medical History: Reports: Hx COPD Malignancy Medical History: Reports Hx Skin Cancer Infectious Medical History: Reports: Hx MRSA Past Surgical History: Reports: Hx Abdominal Surgery - PEG, Hx Cardiac Catheterization, Hx Cardiac Surgery - CAPG, Hx Coronary Artery Bypass Graft - 11/2011, Hx Coronary Stent - Immunizations Immunizations up to date: Yes Hx Diphtheria, Pertussis, Tetanus Vaccination: No - unk Hx Pneumococcal Vaccination: 08/04/19 Review of Systems - Review of Systems Constitutional: No symptoms reported EENT: No symptoms reported Cardiovascular: See HPI. denies: Chest pain Respiratory: See HPI, Short of breath, Sputum - yellow Gastrointestinal: No symptoms reported Genitourinary: No symptoms reported Male Genitourinary: No symptoms reported Musculoskeletal: No symptoms reported Skin: No symptoms reported Hematologic/Lymphatic: No symptoms reported Neurological/Psychological: No symptoms reported -: Yes All other systems reviewed and negative Physical Exam - Vital signs Vitals: Temp 97.4 F 03/23/20 11:15 - General General appearance: Other - Cachectic In distress: Moderate - HEENT Head: Atraumatic, Other - Large exotosis mass on posterior top of head Eyes: Normal Conjunctiva: Normal Cornea: Normal Extraocular movements intact: Yes Neck: Other - Tracheostomy with yellow mucous noted - Respiratory Respiratory status: Tachypnea Breath sounds: Rhonchi, Wheezing - Cardiovascular Rhythm: Irregularly irregular, Other - HR 160 - Abdominal Inspection: Normal, Other - PEG tube Distension: No distension Bowel sounds: Normal Tenderness: Nontender - Back Back: Normal - Extremities General upper extremity: Nontender General lower extremity: Nontender, Edema - Soft Pitting, Other - Cyanotic - Neurological Cognition: Normal Orientation: AAOx4 - Psychological Associated symptoms: Anxious - Skin Skin Temperature: Cool Skin Moisture: Diaphoretic Skin Color: Normal, Other - See LE note Course - Re-evaluation Re-evalutation: 03/23/20 11:48 When initially seen, the patient states that his breathing was about baseline for him, he was a little tachypneic with mild retractions and diffuse rhonchi and wheezes. He was oxygenating well. At that time his heart rate was about 150 with A. fib. About 30 minutes later he went into respiratory distress and became quite tachypneic, O2 saturations during a nebulized breathing treatment with oxygen dropped into the mid 80s, his heart rate went up to just over 200. I attached a bag valve mask and begin bagging coordinated with his inspiratory effort. He immediately felt better, his oxygen saturations increased to 98% and as long as I was bagging with each breath, he stated he felt good. There is no resistance to bagging when he is breathing in. Allowed him to try breathing on his own with just the oxygen flow, and he said that it was not helping as much. 03/23/20 12:12 Patient did not tolerate BiPAP and oxygen saturations would not go above 92. Decision was made to put him on a ventilator with inhalation assist. He did receive Lasix IV, but has not produced urine yet. His heart rate is back down to the 120 range after receiving medications and being on the bag valve trach v entilation. - Vital Signs Vital signs: Temp Pulse Resp BP Pulse Ox 97.4 F 03/23/20 11:15 - Laboratory Result Diagrams: 03/23/20 11:12 03/23/20 11:12 Laboratory results interpreted by me: 03/23/20 03/23/20 03/23/20 11:12 11:12 11:12 RBC 4.29 L RDW 15.5 H Lymph % (Auto) 12.0 L Seg Neutrophils % 78.2 H BUN 27 H Glucose 147 H NT-Pro-B Natriuret Pep 9530 H Total Protein 8.3 H Digoxin < 0.40 L - Diagnostic Test Radiology reviewed: Image reviewed, Reports reviewed - Chest x-ray shows cardiomegaly with pulmonary edema Critical Care Note - Critical Care Note Total time excluding time spent on procedures (mins): 50 Discharge - Discharge Clinical Impression: Atrial fibrillation with RVR, COPD exacerbation Pulmonary edema Qualifiers: Chronicity: acute Qualified Code(s): J81.0 - Acute pulmonary edema Respiratory failure Qualifiers: Chronicity: acute Respiratory failure complication: hypoxia Qualified Code(s): J96.01 - Acute respiratory failure with hypoxia Condition: Fair Disposition: ADMITTED INPATIENT Admitting Provider: Alexis ([facility]) Unit Admitted: ICU I personally performed the services described in the documentation, reviewed and edited the documentation which was dictated to the scribe in my presence, and it accurately records my words and actions.
[2020-03-23 12:02] LABS: ALBUMIN 4.2 g/dL (3.5-5.0); ALKALINE PHOSPHATASE 87 U/L (38-126); ANION GAP 9 (5-19); ASPARTATE AMINO TRANSFERASE 32 U/L (17-59); BILIRUBIN,DIRECT 0.1 mg/dL (0.0-0.4); BILIRUBIN,TOTAL 1.1 mg/dL (0.2-1.3); BLOOD UREA NITROGEN 27 mg/dL (7-20); CALCIUM 9.4 mg/dL (8.4-10.2); CARBON DIOXIDE 23 mmol/L (22-30); CHLORIDE 107 mmol/L (98-107); CREATINE KINASE 68 U/L (55-170); GLUCOSE 147 mg/dL (75-110); POTASSIUM 4.9 mmol/L (3.6-5.0); TOTAL PROTEIN 8.3 g/dL (6.3-8.2)
[2020-03-23 12:06] LABS: DIGOXIN < 0.40 ng/mL (0.8-2.0)
[2020-03-23] MEDS ORDERED: LORAZEPAM INJ 2 MG/1 ML VIAL IV ONE (12:23)
[2020-03-23 13:41] LABS: ARTERIAL BLOOD BASE EXCESS -1.4 mmol/L; ARTERIAL BLOOD FIO2 70%; ARTERIAL BLOOD HCO3 24.1 mmol/L (20-24); ARTERIAL BLOOD O2 SATURATION 95.1 % (94-98); ARTERIAL BLOOD PCO2 43.3 mmHg (35-45); ARTERIAL BLOOD PH 7.36 (7.35-7.45); ARTERIAL BLOOD PO2 77.9 mmHg (80-100); ARTERIAL BLOOD TOTAL CO2 25.4 mmol/L (23-27)
[2020-03-23 13:51] LABS: APPEARANCE,URINE CLEAR; BILIRUBIN,URINE NEGATIVE (NEGATIVE); COLOR,URINE STRAW; GLUCOSE, URINE NEGATIVE (NEGATIVE); KETONES,URINE NEGATIVE (NEGATIVE); LEUKOCYTE ESTERASE,URINE NEGATIVE (NEGATIVE); NITRITE,URINE NEGATIVE (NEGATIVE); PROTEIN,URINE 30 mg/dL (NEGATIVE); URINE SPECIFIC GRAVITY 1.006; UROBILINOGEN,URINE NEGATIVE mg/dL (<2.0)
[2020-03-23] MEDS ORDERED: MORPHINE SULFATE 10 MG/ML INJ IV PRN (16:39)
--- NOTE | 2020-03-23 16:42 | CRITICAL CARE ADMISSION REPORT ---
HPI Date:: 03/23/20 Time:: 13:52 Reason for ICU Reason:: acute respiratory failure HPI: This 70-year-old male smoker presented to [facility] emergency department with complaints of increasing shortness of breath. In the emergency department, the patient was found to be in atrial fibrillation (chronic) with rapid ventricular response with a ventricular rate over 200. Of note, the patient is status post tracheostomy (for esophageal cancer). He was initially placed on supplemental oxygen but failed to improve and ultimately was placed back on mechanical ventilatory support via tracheostomy. At the time of clinical interview, the patient is on Cardizem infusion for rapid ventricular response. Regular rate [id number]. SBP 80s, MAP 71. He is arousable and does follow commands. He was recently admitted to this facility on 02/20/2020. While documentation suggest that he was tested for COVID-19 at that time, there is no result in the medical record to corroborate. While the patient is afebrile at the time of clinical encounter, the patient did have a rapidly progressive hypoxemic respiratory failure in the emergency department. He was noted to be lymphocytopenic on presentation. Potassium 4.9. PCP: Dr. Lawson Alex History obtained from:: ER staff; review of medical record - Diagnosis/Plan (1) Acute on chronic respiratory failure with hypoxia and hypercapnia Is this a current diagnosis for this admission?: Yes Plan: Titrate vent settings based on ABG results. Sedation should not be necessary. COVID-19 test pending. Trach aspirate for Gram stain, C/S. Based on Gram stain result, empiric cefepime/levofloxacin/vancomycin will be started. (2) Acute systolic congestive heart failure Is this a current diagnosis for this admission?: Yes (3) COPD exacerbation Is this a current diagnosis for this admission?: Yes Plan: DuoNeb every 6 hours scheduled. Albuterol unit dose nebulized every 4 hours as needed. Solu-Medrol 60 mg daily. (4) Atrial fibrillation with rapid ventricular response Is this a current diagnosis for this admission?: Yes Plan: Digoxin 0.25 mg p.o. daily is noted to be on his home medications list; however, he had an undetectable digoxin level in the emergency department. At the time of initial encounter, the patient has received 2 doses of 0.125 mg digoxin IV. Continue diltiazem infusion. Target regular rate less than 110. If hypotension becomes an obstacle to treatment with diltiazem, an additional 0.25 mg digoxin IV should be considered. Restart digoxin 0.25 mg IV daily. Continue Eliquis (apixaban) 5 mg p.o. every 12 hours. (5) Pulmonary edema Qualifiers: Chronicity: acute Qualified Code(s): J81.0 - Acute pulmonary edema Is this a current diagnosis for this admission?: Yes Plan: Chest x-ray in a.m. (6) Tracheostomy in place Is this a current diagnosis for this admission?: Yes (7) Tracheostomy care Is this a current diagnosis for this admission?: Yes Plan: It is unknown at this time how old the patient's current achy ostomy cannula is. Notably, it is filthy and should be changed out. (8) Chronic prescription opiate use Is this a current diagnosis for this admission?: Yes Plan: Has oxycodone/acetaminophen 10/325 1 tablet p.o. every 4 hours PRN on his home medications. (9) Nicotine dependence, cigarettes, with other nicotine-induced disorders Is this a current diagnosis for this admission?: Yes Past Medical History Cardiac Medical History: Reports: Atrial Fibrillation, Congestive Heart Failure - LVEF 20%, Coronary Artery Disease, Myocardial Infarction - 2009 Denies: DVT, Hypertension, Pulmonary Embolism Pulmonary Medical History: Reports: Chronic Obstructive Pulmonary Disease (COPD), Respiratory Failure Denies: Asthma, Bronchitis, Pneumonia, Sleep Apnea Neurological Medical History: Denies: Seizures Endocrine Medical History: Denies: Diabetes Mellitus Type 1, Diabetes Mellitus Type 2 Malignancy Medical History: Reports: Skin Cancer, Other - Esophageal cancer GI Medical History: Denies: Cirrhosis, Hepatitis Musculoskeltal Medical History: Denies: Arthritis, Gout Skin Medical History: Denies: Eczema, Psoriasis Psychiatric Medical History: Denies: Depression Hematology: Denies: Anemia, Bleeding Tendencies Infectious Medical History: Reports: Methicillin-Resistant Staph Aureus Past Surgical History Past Surgical History: Reports: Cardiac Catheterization, Coronary Artery Bypass Graft - 11/2011, Coronary Stent Social/Family History - Social History Smoking Status: Current Every Day Smoker Frequency of Alcohol Use: None Hx Recreational Drug Use: No Drugs: None Hx Prescription Drug Abuse: No - Medication/Allergies Home Medications: Hydroxyzine Pamoate [Vistaril] 25 mg PO HSP PRN 11/05/19 Omeprazole 20 mg PO Q12 11/05/19 Oxycodone HCl/Acetaminophen [Oxycodone-Acetaminophen 10-325] 1 tab PO Q4HP PRN 11/05/19 Tizanidine HCl 2 mg PO HSP PRN 11/05/19 Apixaban [Eliquis 5 mg Tablet] 5 mg PO Q12 #60 tablet 11/13/19 Digoxin [Lanoxin 0.25 mg Tablet] 0.25 mg PO DAILY #30 11/13/19 Albuterol Sulfate [Ventolin 0.083% Neb 2.5 mg/3 mL Ampul] 2.5 mg NEB RTQIDP PRN 02/20/20 Diltiazem HCl [Cardizem Cd 120 mg Capsule] 120 mg PO Q12 03/23/20 Allergies/Adverse Reactions: Penicillins Allergy (Severe, Verified 12/02/19 13:42) turned blue as infant acetaminophen [From Tylenol] Allergy (Verified 12/02/19 13:42) aspirin Allergy (Verified 12/02/19 13:42) Review of Systems ROS unobtainable: Other - On mechanical ventilatory support via tracheostomy Physical Exam Vital Signs: Temp Pulse Resp BP Pulse Ox 97.4 F 27 H 102/61 94 03/23/20 11:15 03/23/20 12:41 03/23/20 12:41 03/23/20 12:41 Intake & Output 03/22/20 03/23/20 03/24/20 06:59 06:59 06:59 Weight 59.3 kg Weight/Height Weight 59.3 kg Height 1.75 m General appearance: PRESENT: no acute distress, disheveled, thin Head exam: PRESENT: atraumatic, normocephalic Eye exam: PRESENT: conjunctiva pink, EOMI, PERRLA, other - OD pterygium. ABSENT: scleral icterus Mouth exam: PRESENT: dry mucosa, tongue midline Neck exam: ABSENT: carotid bruit, JVD, lymphadenopathy, thyromegaly Cardiovascular exam: PRESENT: irregular rhythm, tachycardia. ABSENT: diastolic murmur, rubs, systolic murmur GI/Abdominal exam: PRESENT: normal bowel sounds, soft. ABSENT: distended, guarding, mass, organolmegaly, rebound, tenderness Extremities exam: ABSENT: calf tenderness, clubbing, pedal edema Musculoskeletal exam: PRESENT: other - Cachectic. ABSENT: deformity Neurological exam: PRESENT: alert, altered - But arousable, reflexes normal, CN II-XII grossly intact. ABSENT: motor sensory deficit Skin exam: PRESENT: dry, intact, warm. ABSENT: cyanosis, rash Tubes/Lines: PRESENT: Peg Tube, Other - Tracheostomy Laboratory/Radiographs Laboratory Results: 03/23/20 11:12 03/23/20 11:12 03/23/20 03/23/20 03/23/20 11:12 11:12 13:17 WBC 9.0 RBC 4.29 L Hgb 13.8 Hct 40.8 MCV 95 MCH 32.3 MCHC 33.9 RDW 15.5 H Plt Count 216 Seg Neutrophils % 78.2 H Carbonic Acid 1.30 HCO3/H2CO3 Ratio 18:1 ABG pH 7.36 ABG pCO2 43.3 ABG pO2 77.9 L ABG HCO3 24.1 H ABG O2 Saturation 95.1 ABG Base Excess -1.4 FiO2 70% Sodium 138.8 Potassium 4.9 Chloride 107 Carbon Dioxide 23 Anion Gap 9 BUN 27 H Creatinine 0.91 Est GFR ( Amer) > 60 Glucose 147 H Calcium 9.4 Total Bilirubin 1.1 AST 32 Alkaline Phosphatase 87 Total Protein 8.3 H Albumin 4.2 03/23/20 03/23/20 03/23/20 11:12 11:12 11:12 Creatine Kinase 68 Troponin I 0.052 NT-Pro-B Natriuret Pep 9530 H Impressions: Chest X-Ray 03/23/20 11:16 IMPRESSION: Persistent bilateral interstitial alveolar airspace disease most likely edema. This is slightly improved from prior study. There is a small left effusion. Heart remains enlarged. Tracheostomy tube remains in place. All labs, radiographs, diagnostic studies and EKGs were personally reviewed: Yes In addition, reports of radiographic and diagnostic studies were read: Yes Critical Time Critical Time (minutes): 60 -: The care of a critically ill patient is dynamic. This note represents a static moment in the admission process. Orders and treatments may be given simultaneously and urgently, and time is not instruments sales representative of the treatment process. This patient requires Critical Care secondary to life threatening organ or limb dysfunction. Without Critical Care services, the patient is at risk for increased mortality and morbidity.
[2020-03-23 17:41] LABS: URINE AMPHETAMINES SCREEN NEGATIVE; URINE BARBITURATES SCREEN NEGATIVE; URINE BENZODIAZEPINES SCREEN NEGATIVE; URINE COCAINE SCREEN NEGATIVE; URINE MARIJUANA (THC) SCREEN NEGATIVE; URINE METHADONE SCREEN NEGATIVE; URINE PHENCYCLIDINE SCREEN NEGATIVE
[2020-03-23] MEDS: APIXABAN 5 MG TABLET GT SCH (18:15)
[2020-03-23] MEDS: DIGOXIN INJ 0.5 MG/2 ML AMPULE IV SCH (18:19)
--- NOTE | 2020-03-23 22:29 | EKG REPORT ---
SEVERITY:- ABNORMAL ECG - ATRIAL FIBRILLATION WITH RAPID V-RATE BORDERLINE RIGHT AXIS DEVIATION CONSIDER LEFT VENTRICULAR HYPERTROPHY REPOLARIZATION ABNORMALITY, PROB RATE RELATED : Confirmed by: Melisa Weiner MD 23-Mar-2020 22:28:35
[2020-03-24 04:23] LABS: HEMOGLOBIN 11.8 g/dL (13.5-17.0); MEAN CORPUSCULAR HEMOGLOBIN 31.5 pg (27.0-33.4); MEAN CORPUSCULAR HGB CONC 33.7 g/dL (32.0-36.0); MEAN CORPUSCULAR VOLUME 94 fl (80-97); PLATELET COUNT 166 10^3/uL (150-450); RED BLOOD COUNT 3.74 10^6/uL (4.35-5.55); RED CELL DISTRIBUTION WIDTH 15.4 % (11.5-14.0); WHITE BLOOD COUNT 13.3 10^3/uL (4.0-10.5)
[2020-03-24 04:41] LABS: ANION GAP 5 (5-19); BLOOD UREA NITROGEN 27 mg/dL (7-20); CALCIUM 8.6 mg/dL (8.4-10.2); CARBON DIOXIDE 26 mmol/L (22-30); CHLORIDE 106 mmol/L (98-107); GLUCOSE 97 mg/dL (75-110); PHOSPHORUS 3.9 mg/dL (2.5-4.5); POTASSIUM 4.4 mmol/L (3.6-5.0)
[2020-03-24 04:43] LABS: ABSOLUTE LYMPHOCYTES# (MANUAL) 0.7 10^3/uL (0.5-4.7); ABSOLUTE MONOCYTES # (MANUAL) 0.3 10^3/uL (0.1-1.4); BAND NEUTROPHILS % (MANUAL) 1 % (3-5); BASOPHILS % (MANUAL) 0 % (0-2); EOSINOPHILS % (MANUAL) 0 % (0-6); LYMPHOCYTES % (MANUAL) 5 % (13-45); MONOCYTES % (MANUAL) 2 % (3-13); SEGMENTED NEUTROPHILS % (MAN) 92 % (42-78); TOTAL CELLS COUNTED 100
[2020-03-24 04:45] LABS: ANISOCYTOSIS SLIGHT; OVALOCYTES SLIGHT
[2020-03-24 04:46] LABS: PLATELET COMMENT ADEQUATE
[2020-03-24 05:42] LABS: ARTERIAL BLOOD BASE EXCESS 0.7 mmol/L; ARTERIAL BLOOD FIO2 70%; ARTERIAL BLOOD H2CO3 1.12 mmol/L (1.05-1.35); ARTERIAL BLOOD HCO3 24.6 mmol/L (20-24); ARTERIAL BLOOD O2 SATURATION 99.6 % (94-98); ARTERIAL BLOOD PCO2 37.1 mmHg (35-45); ARTERIAL BLOOD PH 7.44 (7.35-7.45); ARTERIAL BLOOD PO2 248.4 mmHg (80-100); ARTERIAL BLOOD TOTAL CO2 25.7 mmol/L (23-27)
--- NOTE | 2020-03-24 08:13 | RADIOLOGY REPORT (SQ) ---
EXAM DESCRIPTION: CHEST SINGLE VIEW IMAGES COMPLETED DATE/TIME: 03/24/2020 5:54 am REASON FOR STUDY: acute resp failure COMPARISON: 03/23/2020. EXAM PARAMETERS: NUMBER OF VIEWS: One view. TECHNIQUE: Single frontal radiographic view of the chest acquired. RADIATION DOSE: NA LIMITATIONS: None. FINDINGS: LUNGS AND PLEURA: Diffuse bilateral parenchymal opacities, slightly improved. MEDIASTINUM AND HILAR STRUCTURES: No masses. Contour normal. HEART AND VASCULAR STRUCTURES: Cardiomegaly unchanged. BONES: No acute findings. HARDWARE: Tracheostomy tube, central line, sternotomy wires. OTHER: No other significant finding. IMPRESSION: CARDIOMEGALY. IMPROVEMENT IN THE FINDINGS OF PULMONARY EDEMA. TECHNICAL DOCUMENTATION: JOB ID: [id number] 2010 [employer]- All Rights Reserved Reading location - IP/workstation name: [email or web address]
[2020-03-24] MEDS ORDERED: DILTIAZEM HCL 120 MG CAP.SR.24H PO ONE (09:00)
[2020-03-24] MEDS: APIXABAN 5 MG TABLET GT SCH ×2 (09:36→19:12)
[2020-03-24] MEDS: PANTOPRAZOLE SODIUM 40 MG VIAL IV SCH (09:37)
[2020-03-24] MEDS: DIGOXIN INJ 0.5 MG/2 ML AMPULE IV SCH (09:37)
[2020-03-24] MEDS ORDERED: TOBRAMYCIN SULFATE INJ 80 MG/2 ML VIAL NEB SCH (12:00)
[2020-03-24] MEDS: TOBRAMYCIN SULFATE NEB 40 MG/ML 30 ML NEB SCH ×2 (13:32→20:11)
--- NOTE | 2020-03-24 17:13 | PDOC CRITICAL CARE PROG REPORT ---
General Date:: 03/24/20 ICU Day:: 2 Ventilator Day:: 2 Hospital Day:: 2 Resuscitation Status: Full Code Events in the past 12 to 24 Hours:: 03/23: 70-year-old male presented on [facility] emergency department with complaints of rapidly increasing shortness of breath. COVID-19 negative. Found to be in atrial fibrillation with rapid ventricular response (RVR greater than 200). Chronic tracheostomy secondary to esophageal cancer. Placed on mechanical ventilatory support. Rate control achieved with diltiazem infusion and IV digoxin. 03/24: Remains on mechanical ventilatory support via tracheostomy. On diltiazem infusion. Started digoxin 0.25 mg IV daily. Monitor shows atrial fibrillation, rate controlled. Trach aspirate is isolating gram-negative rods. WBC 8 9>13.3, but after initiation of steroids. Afebrile. Foul odor and copious secretions are emanating from the tracheal stoma. Review of systems relevant to events:: Cardiovascular, respiratory, dermatologic Reason for ICU Addmission:: acute respiratory failure - Medications: Medications reviewed and adjusted accordingly: Yes Physical Exam Vital Signs: Temp Pulse Resp BP Pulse Ox 100.2 F 110 H 22 H 116/64 96 03/24/20 08:00 03/24/20 10:00 03/24/20 10:00 03/24/20 10:00 03/24/20 10:52 Intake & Output 03/23/20 03/24/20 03/25/20 06:59 06:59 06:59 Intake Total 21 0 Output Total 810 408 Balance -789 -408 Weight 60.6 kg Weight/Height Weight 60.6 kg Height 1.75 m General appearance: PRESENT: no acute distress, thin, other - Has been bathed in the interim. Head exam: PRESENT: atraumatic, normocephalic, other - Large skin lesions (most consistent with actinic keratosis) involving the scalp Eye exam: PRESENT: conjunctiva pink, EOMI, PERRLA, other - OD pterygium. ABSENT: scleral icterus Mouth exam: PRESENT: dry mucosa, tongue midline Neck exam: ABSENT: carotid bruit, JVD, lymphadenopathy, thyromegaly Respiratory exam: PRESENT: rales, rhonchi. ABSENT: wheezes Cardiovascular exam: PRESENT: irregular rhythm. ABSENT: diastolic murmur, rubs, systolic murmur GI/Abdominal exam: PRESENT: ascites Extremities exam: PRESENT: full ROM. ABSENT: calf tenderness, clubbing, pedal edema Neurological exam: PRESENT: alert, awake, oriented to person, oriented to place, oriented to time, oriented to situation, CN II-XII grossly intact. ABSENT: motor sensory deficit Psychiatric exam: PRESENT: appropriate affect. ABSENT: agitated, anxious Skin exam: PRESENT: dry, intact, warm, other - Lesion suspected to be actinic keratosis (scalp). ABSENT: cyanosis, rash Tubes/Lines: PRESENT: Peg Tube, Other - Tracheostomy Laboratory/Radiographs Laboratory Results: 03/24/20 04:15 03/24/20 04:15 03/23/20 03/23/20 03/23/20 11:12 11:12 13:00 WBC 9.0 RBC 4.29 L Hgb 13.8 Hct 40.8 MCV 95 MCH 32.3 MCHC 33.9 RDW 15.5 H Plt Count 216 Seg Neutrophils % 78.2 H Carbonic Acid HCO3/H2CO3 Ratio ABG pH ABG pCO2 ABG pO2 ABG HCO3 ABG O2 Saturation ABG Base Excess FiO2 Sodium 138.8 Potassium 4.9 Chloride 107 Carbon Dioxide 23 Anion Gap 9 BUN 27 H Creatinine 0.91 Est GFR ( Amer) > 60 Glucose 147 H Calcium 9.4 Phosphorus Magnesium Total Bilirubin 1.1 AST 32 Alkaline Phosphatase 87 Total Protein 8.3 H Albumin 4.2 Urine Color STRAW Urine Appearance CLEAR Urine pH 5.0 Ur Specific [place] 1.006 Urine Protein 30 H Urine Glucose (UA) NEGATIVE Urine Ketones NEGATIVE Urine Blood NEGATIVE Urine Nitrite NEGATIVE Ur Leukocyte Esterase NEGATIVE Urine WBC (Auto) 2 Urine RBC (Auto) 1 03/23/20 03/24/20 03/24/20 13:17 04:15 04:15 WBC 13.3 H RBC 3.74 L Hgb 11.8 L Hct 35.0 L MCV 94 MCH 31.5 MCHC 33.7 RDW 15.4 H Plt Count 166 Seg Neutrophils % Not Reportable Carbonic Acid 1.30 HCO3/H2CO3 Ratio 18:1 ABG pH 7.36 ABG pCO2 43.3 ABG pO2 77.9 L ABG HCO3 24.1 H ABG O2 Saturation 95.1 ABG Base Excess -1.4 FiO2 70% Sodium 136.6 L Potassium 4.4 Chloride 106 Carbon Dioxide 26 Anion Gap 5 BUN 27 H Creatinine 0.96 Est GFR ( Amer) > 60 Glucose 97 Calcium 8.6 Phosphorus 3.9 Magnesium 1.9 Total Bilirubin AST Alkaline Phosphatase Total Protein Albumin Urine Color Urine Appearance Urine pH Ur Specific [place] Urine Protein Urine Glucose (UA) Urine Ketones Urine Blood Urine Nitrite Ur Leukocyte Esterase Urine WBC (Auto) Urine RBC (Auto) 03/24/20 05:15 WBC RBC Hgb Hct MCV MCH MCHC RDW Plt Count Seg Neutrophils % Carbonic Acid 1.12 HCO3/H2CO3 Ratio 21:1 ABG pH 7.44 ABG pCO2 37.1 ABG pO2 248.4 H ABG HCO3 24.6 H ABG O2 Saturation 99.6 H ABG Base Excess 0.7 FiO2 70% Sodium Potassium Chloride Carbon Dioxide Anion Gap BUN Creatinine Est GFR ( Amer) Glucose Calcium Phosphorus Magnesium Total Bilirubin AST Alkaline Phosphatase Total Protein Albumin Urine Color Urine Appearance Urine pH Ur Specific [place] Urine Protein Urine Glucose (UA) Urine Ketones Urine Blood Urine Nitrite Ur Leukocyte Esterase Urine WBC (Auto) Urine RBC (Auto) 03/23/20 03/23/20 03/23/20 11:12 11:12 11:12 Creatine Kinase 68 Troponin I 0.052 NT-Pro-B Natriuret Pep 9530 H 03/24/20 04:15 Creatine Kinase Troponin I NT-Pro-B Natriuret Pep 8700 H Impressions: Chest X-Ray 03/24/20 06:00 IMPRESSION: CARDIOMEGALY. IMPROVEMENT IN THE FINDINGS OF PULMONARY EDEMA. All labs, radiographs, diagnostic studies and EKGs were personally reviewed: Yes In addition, reports of radiographic and diagnostic studies were read: Yes Assessment and Plan - Diagnosis (1) Acute on chronic respiratory failure with hypoxia and hypercapnia Is this a current diagnosis for this admission?: Yes Plan: Improving. Wean ventilator as tolerated. May be able to transition to trach collar trials today. (2) Acute systolic congestive heart failure Is this a current diagnosis for this admission?: Yes Plan: proBNP 9530>8700 without diuresis. Repeat proBNP in a.m. (3) COPD exacerbation Is this a current diagnosis for this admission?: Yes Plan: Resolved. Continue duo nebs. Add Pulmicort. Start cefepime/LUDMILA for gram-negative rods in trach aspirate. (4) Atrial fibrillation with rapid ventricular response Is this a current diagnosis for this admission?: Yes Plan: Rate controlled on digoxin and diltiazem. Stop diltiazem infusion. Start Cardizem CD 120 mg p.o. twice daily. Continue digoxin. Digoxin level should be checked on 03/26. (5) Pulmonary edema Qualifiers: Chronicity: acute Qualified Code(s): J81.0 - Acute pulmonary edema Is this a current diagnosis for this admission?: Yes Plan: Hold diuretic today. Chest x-ray in a.m. (6) Tracheostomy in place Is this a current diagnosis for this admission?: Yes (7) Tracheostomy care Is this a current diagnosis for this admission?: Yes (8) Chronic prescription opiate use Is this a current diagnosis for this admission?: Yes (9) Nicotine dependence, cigarettes, with other nicotine-induced disorders Is this a current diagnosis for this admission?: Yes (10) Actinic keratosis Is this a current diagnosis for this admission?: Yes Critical Time Critical Time (minutes): 60 Level of Care: ICU -: 1. The care of a critical patient is a dynamic process. This note is a in store representative synopsis but static in nature. The timeframe for treatments given in order is not necessarily the actual time these treatments may have been done. 2. This patient requires critical care secondary to ongoing requirements for therapy not offered or safe outside the critical care environment. Transfer to a lower level of care will result in altered life or limb morbidity and mortality. 3. Multidisciplinary rounds completed. 4. ABCDE bundle addressed.
--- NOTE | 2020-03-24 18:19 | RADIOLOGY REPORT (SQ) ---
EXAM DESCRIPTION: CHEST SINGLE VIEW IMAGES COMPLETED DATE/TIME: 03/24/2020 6:07 pm REASON FOR STUDY: pulmonary edema COMPARISON: Earlier the same day. NUMBER OF VIEWS: One view. TECHNIQUE: Single frontal radiographic image of the chest acquired. LIMITATIONS: None. FINDINGS: LUNGS AND PLEURA: Mild improvement aeration bilaterally. Small residual left effusion. MEDIASTINUM AND HILAR STRUCTURES: Stable heart size and mediastinal structures. HEART AND VASCULAR STRUCTURES: Stable appearance. SUPPORT DEVICES: Appropriate location without change. BONES: No acute findings. OTHER: No other significant finding. IMPRESSION: Persistent vascular congestion although improved from the earlier film. TECHNICAL DOCUMENTATION: JOB ID: [id number] 2010 [employer]- All Rights Reserved Reading location - IP/workstation name: [email or web address]
[2020-03-24 19:15] LABS: ANION GAP 9 (5-19); BLOOD UREA NITROGEN 27 mg/dL (7-20); CALCIUM 8.6 mg/dL (8.4-10.2); CARBON DIOXIDE 22 mmol/L (22-30); CHLORIDE 105 mmol/L (98-107); GLUCOSE 79 mg/dL (75-110); POTASSIUM 4.2 mmol/L (3.6-5.0)
[2020-03-24] MEDS: BUDESONIDE NEB 0.25 MG/2 ML AMPUL NEB SCH (20:11)
[2020-03-24] MEDS: CEFEPIME 1 GM/D5W RTU 1 GM/50 ML RTUPB IV SCH (22:06)
[2020-03-25 04:24] LABS: ARTERIAL BLOOD BASE EXCESS -2.1 mmol/L; ARTERIAL BLOOD H2CO3 1.04 mmol/L (1.05-1.35); ARTERIAL BLOOD HCO3 21.7 mmol/L (20-24); ARTERIAL BLOOD O2 SATURATION 96.2 % (94-98); ARTERIAL BLOOD PCO2 34.6 mmHg (35-45); ARTERIAL BLOOD PH 7.42 (7.35-7.45); ARTERIAL BLOOD PO2 81.1 mmHg (80-100); ARTERIAL BLOOD TOTAL CO2 22.8 mmol/L (23-27)
[2020-03-25 04:29] LABS: ARTERIAL BLOOD FIO2 40%
[2020-03-25 05:27] LABS: ANION GAP 9 (5-19); BLOOD UREA NITROGEN 29 mg/dL (7-20); CALCIUM 8.7 mg/dL (8.4-10.2); CARBON DIOXIDE 22 mmol/L (22-30); CHLORIDE 106 mmol/L (98-107); GLUCOSE 76 mg/dL (75-110); PHOSPHORUS 3.3 mg/dL (2.5-4.5); POTASSIUM 4.2 mmol/L (3.6-5.0)
[2020-03-25 05:31] LABS: ABSOLUTE EOSINOPHILS # (AUTO) 0.1 10^3/uL (0.0-0.6); ABSOLUTE LYMPHOCYTES (AUTO) 0.6 10^3/uL (0.5-4.7); ABSOLUTE MONOCYTES (AUTO) 0.7 10^3/uL (0.1-1.4); ABSOLUTE NEUT (AUTO) 7.8 10^3/uL (1.7-8.2); BASOPHILS % (AUTO) 0.5 % (0-2); EOSINOPHILS % (AUTO) 1.1 % (0-6); HEMATOCRIT 35.1 % (37.9-51.0); HEMOGLOBIN 12.2 g/dL (13.5-17.0); LYMPHOCYTES % (AUTO) 6.1 % (13-45); MEAN CORPUSCULAR HEMOGLOBIN 32.5 pg (27.0-33.4); MEAN CORPUSCULAR HGB CONC 34.9 g/dL (32.0-36.0); MEAN CORPUSCULAR VOLUME 93 fl (80-97); MONOCYTES % (AUTO) 7.5 % (3-13); PLATELET COUNT 151 10^3/uL (150-450); RED BLOOD COUNT 3.77 10^6/uL (4.35-5.55); RED CELL DISTRIBUTION WIDTH 15.2 % (11.5-14.0); SEGMENTED NEUTROPHILS % (AUTO) 84.8 % (42-78); TOTAL CELLS COUNTED % (AUTO) 100 %; WHITE BLOOD COUNT 9.2 10^3/uL (4.0-10.5)
[2020-03-25 05:34] LABS: PREALBUMIN 9.2 mg/dL (17.6-36.0)
--- NOTE | 2020-03-25 08:06 | RADIOLOGY REPORT (SQ) ---
EXAM DESCRIPTION: CHEST SINGLE VIEW IMAGES COMPLETED DATE/TIME: 03/25/2020 5:44 am REASON FOR STUDY: acute resp failure COMPARISON: 03/24/2020 NUMBER OF VIEWS: One view. TECHNIQUE: Single frontal radiographic image of the chest acquired. LIMITATIONS: None. FINDINGS: LUNGS AND PLEURA: Stable appearance. MEDIASTINUM AND HILAR STRUCTURES: Stable heart size and mediastinal structures. HEART AND VASCULAR STRUCTURES: Stable appearance. SUPPORT DEVICES: Appropriate location without change. BONES: No acute findings. OTHER: No other significant finding. IMPRESSION: STABLE APPEARANCE OF THE CHEST. SUPPORT DEVICES UNCHANGED. TECHNICAL DOCUMENTATION: JOB ID: [id number] 2010 [employer]- All Rights Reserved Reading location - IP/workstation name: [email or web address]
[2020-03-25] MEDS: BUDESONIDE NEB 0.25 MG/2 ML AMPUL NEB SCH ×2 (08:22→20:50)
[2020-03-25] MEDS: TOBRAMYCIN SULFATE NEB 40 MG/ML 30 ML NEB SCH ×2 (08:22→20:50)
[2020-03-25] MEDS: DIGOXIN INJ 0.5 MG/2 ML AMPULE IV SCH (10:00)
[2020-03-25] MEDS: APIXABAN 5 MG TABLET GT SCH ×2 (10:01→17:43)
[2020-03-25] MEDS: PANTOPRAZOLE SODIUM 40 MG VIAL IV SCH (10:01)
[2020-03-25] MEDS: CEFEPIME 1 GM/D5W RTU 1 GM/50 ML RTUPB IV SCH ×2 (10:01→21:09)
[2020-03-25] MEDS ORDERED: FUROSEMIDE INJ/PF 40 MG/4 ML SDV IV ONE (10:30)
--- NOTE | 2020-03-25 14:06 | PDOC CRITICAL CARE PROG REPORT ---
General Date:: 03/25/20 ICU Day:: 3 Hospital Day:: 3 Resuscitation Status: Full Code Events in the past 12 to 24 Hours:: 03/23: 70-year-old male presented on [facility] emergency department with complaints of rapidly increasing shortness of breath. COVID-19 negative. Found to be in atrial fibrillation with rapid ventricular response (RVR greater than 200). Chronic tracheostomy secondary to esophageal cancer. Placed on mechanical ventilatory support. Rate control achieved with diltiazem infusion and IV digoxin. 03/24: Remains on mechanical ventilatory support via tracheostomy. On diltiazem infusion. Started digoxin 0.25 mg IV daily. Monitor shows atrial fibrillation, rate controlled. Trach aspirate is isolating gram-negative rods. WBC 8 9>13.3, but after initiation of steroids. Afebrile. Foul odor and copious secretions are emanating from the tracheal stoma. 03/25: Tolerated trach collar 40% all night long. SPO2 98%. In good spirits. Interactive and following commands. WBC 13.3>9.2. Trach aspirate has isolated Serratia marcescens, resistant to penicillins, cefazolin and cefoxitin but apparently sensitive to cefepime, ceftazidime and ceftriaxone. Currently on cefepime. Review of systems relevant to events:: Cardiovascular, respiratory, dermatologic Reason for ICU Addmission:: acute respiratory failure - Medications: Medications reviewed and adjusted accordingly: Yes Physical Exam Vital Signs: Temp Pulse Resp BP Pulse Ox 98.4 F 100 24 H 120/78 96 03/25/20 05:25 03/25/20 08:22 03/25/20 11:04 03/25/20 11:04 03/25/20 12:00 Intake & Output 03/24/20 03/25/20 03/26/20 06:59 06:59 06:59 Intake Total 21 50 120 Output Total 810 1078 250 Balance -9 -3197 -130 Weight 60.6 kg 58.7 kg Weight/Height Weight 58.7 kg Height 1.75 m General appearance: PRESENT: no acute distress, thin Head exam: PRESENT: atraumatic, other - Large actinic lesions on the scalp, concerning for malignancy. Eye exam: PRESENT: conjunctiva pink, EOMI, PERRLA, other - OD pterygium. ABSENT: scleral icterus Neck exam: PRESENT: tracheostomy. ABSENT: carotid bruit, JVD, lymphadenopathy, thyromegaly Respiratory exam: PRESENT: crackles - Bilateral, wheezes - Bilateral Cardiovascular exam: PRESENT: irregular rhythm. ABSENT: diastolic murmur, rubs, systolic murmur GI/Abdominal exam: PRESENT: normal bowel sounds, soft. ABSENT: distended, guarding, mass, organolmegaly, rebound, tenderness Extremities exam: PRESENT: full ROM. ABSENT: calf tenderness, clubbing, pedal edema Neurological exam: PRESENT: alert, awake, oriented to person, oriented to place, oriented to time, oriented to situation, CN II-XII grossly intact. ABSENT: motor sensory deficit Psychiatric exam: PRESENT: appropriate affect Skin exam: PRESENT: dry, intact, warm. ABSENT: cyanosis, rash Laboratory/Radiographs Laboratory Results: 03/25/20 04:41 03/25/20 04:41 03/24/20 03/25/20 03/25/20 18:05 04:12 04:41 WBC 9.2 RBC 3.77 L Hgb 12.2 L Hct 35.1 L MCV 93 MCH 32.5 MCHC 34.9 RDW 15.2 H Plt Count 151 Seg Neutrophils % 84.8 H Carbonic Acid 1.04 L HCO3/H2CO3 Ratio 20:1 ABG pH 7.42 ABG pCO2 34.6 L ABG pO2 81.1 ABG HCO3 21.7 ABG O2 Saturation 96.2 ABG Base Excess -2.1 FiO2 40% Sodium 136.4 L Potassium 4.2 Chloride 105 Carbon Dioxide 22 Anion Gap 9 BUN 27 H Creatinine 0.88 Est GFR ( Amer) > 60 Glucose 79 Calcium 8.6 Phosphorus Magnesium Prealbumin 03/25/20 04:41 WBC RBC Hgb Hct MCV MCH MCHC RDW Plt Count Seg Neutrophils % Carbonic Acid HCO3/H2CO3 Ratio ABG pH ABG pCO2 ABG pO2 ABG HCO3 ABG O2 Saturation ABG Base Excess FiO2 Sodium 136.8 L Potassium 4.2 Chloride 106 Carbon Dioxide 22 Anion Gap 9 BUN 29 H Creatinine 0.85 Est GFR ( Amer) > 60 Glucose 76 Calcium 8.7 Phosphorus 3.3 Magnesium 2.1 Prealbumin 9.2 L 03/23/20 03/23/20 03/23/20 11:12 11:12 11:12 Creatine Kinase 68 Troponin I 0.052 NT-Pro-B Natriuret Pep 9530 H 03/24/20 03/25/20 04:15 04:41 Creatine Kinase Troponin I NT-Pro-B Natriuret Pep 8700 H 5280 H Impressions: Chest X-Ray 03/25/20 06:00 IMPRESSION: STABLE APPEARANCE OF THE CHEST. SUPPORT DEVICES UNCHANGED. All labs, radiographs, diagnostic studies and EKGs were personally reviewed: Yes In addition, reports of radiographic and diagnostic studies were read: Yes Assessment and Plan - Diagnosis (1) Acute on chronic respiratory failure with hypoxia and hypercapnia Is this a current diagnosis for this admission?: Yes Plan: Improving. Wean trach collar as tolerated. (2) Acute systolic congestive heart failure Is this a current diagnosis for this admission?: Yes Plan: proBNP 9530>8700>5280 without diuresis. Furosemide 40 mg IV single dose today. Repeat proBNP in a.m. (3) COPD exacerbation Is this a current diagnosis for this admission?: Yes Plan: Resolved. Continue Duonebs/Pulmicort Continue cefepime/LUDMILA for gram-negative rods in trach aspirate. (4) Pneumonia due to Serratia marcescens Is this a current diagnosis for this admission?: Yes Plan: Continue cefepime/LUDMILA (minimum 7-day course of treatment). Based on sensi tivity data, the organism was sensitive to levofloxacin, which may prove to be a useful agent at the time of final disposition. (5) Atrial fibrillation with rapid ventricular response Is this a current diagnosis for this admission?: Yes Plan: Rate controlled on digoxin and diltiazem. Continue digoxin 0.25 mg p.o. daily, Cardizem CD 120 mg p.o. twice daily. Digoxin level on 03/26. (6) Pulmonary edema Qualifiers: Chronicity: acute Qualified Code(s): J81.0 - Acute pulmonary edema Is this a current diagnosis for this admission?: Yes Plan: Furosemide 40 mg IV single dose today.. Chest x-ray in a.m. (7) Tracheostomy in place Is this a current diagnosis for this admission?: Yes (8) Tracheostomy care Is this a current diagnosis for this admission?: Yes (9) Chronic prescription opiate use Is this a current diagnosis for this admission?: Yes (10) Nicotine dependence, cigarettes, with other nicotine-induced disorders Is this a current diagnosis for this admission?: Yes (11) Actinic keratosis Is this a current diagnosis for this admission?: Yes Plan Summary: OK to transfer to the floor from pulmonary standpoint. Critical Time Critical Time (minutes): 45 Level of Care: ICU -: 1. The care of a critical patient is a dynamic process. This note is a manufacturing sales representative synopsis but static in nature. The timeframe for treatments given in order is not necessarily the actual time these treatments may have been done. 2. This patient requires critical care secondary to ongoing requirements for therapy not offered or safe outside the critical care environment. Transfer to a lower level of care will result in altered life or limb morbidity and mortality. 3. Multidisciplinary rounds completed. 4. ABCDE bundle addressed.
[2020-03-25] MEDS: IPRATROPIUM/ALBUTEROL 0.5-2.5 MG/3 ML AMPUL NEB SCH (20:50)
[2020-03-25] MEDS ORDERED: METOPROLOL TARTRATE PF/INJ 5 MG/5 ML SDV IV ONE ×2 (21:01→21:02)
[2020-03-25] MEDS ORDERED: NORMAL SALINE 500 ML IV PRN (23:35)
[2020-03-26] MEDS: IPRATROPIUM/ALBUTEROL 0.5-2.5 MG/3 ML AMPUL NEB SCH ×4 (01:53→20:19)
[2020-03-26 06:33] LABS: ANION GAP 7 (5-19); BLOOD UREA NITROGEN 37 mg/dL (7-20); CALCIUM 8.9 mg/dL (8.4-10.2); CARBON DIOXIDE 31 mmol/L (22-30); CHLORIDE 100 mmol/L (98-107); GLUCOSE 83 mg/dL (75-110); PHOSPHORUS 4.1 mg/dL (2.5-4.5)
[2020-03-26 07:18] LABS: ABSOLUTE BASOPHILS # (AUTO) 0.1 10^3/uL (0.0-0.2); ABSOLUTE EOSINOPHILS # (AUTO) 0.1 10^3/uL (0.0-0.6); ABSOLUTE LYMPHOCYTES (AUTO) 0.7 10^3/uL (0.5-4.7); ABSOLUTE MONOCYTES (AUTO) 0.8 10^3/uL (0.1-1.4); ABSOLUTE NEUT (AUTO) 6.7 10^3/uL (1.7-8.2); BASOPHILS % (AUTO) 0.7 % (0-2); EOSINOPHILS % (AUTO) 1.5 % (0-6); HEMATOCRIT 40.1 % (37.9-51.0); HEMOGLOBIN 13.9 g/dL (13.5-17.0); MEAN CORPUSCULAR HGB CONC 34.6 g/dL (32.0-36.0); MEAN CORPUSCULAR VOLUME 93 fl (80-97); MONOCYTES % (AUTO) 9.6 % (3-13); PLATELET COUNT 201 10^3/uL (150-450); RED BLOOD COUNT 4.33 10^6/uL (4.35-5.55); RED CELL DISTRIBUTION WIDTH 15.2 % (11.5-14.0); SEGMENTED NEUTROPHILS % (AUTO) 80.2 % (42-78); TOTAL CELLS COUNTED % (AUTO) 100 %; WHITE BLOOD COUNT 8.4 10^3/uL (4.0-10.5)
[2020-03-26] MEDS: BUDESONIDE NEB 0.25 MG/2 ML AMPUL NEB SCH ×2 (08:41→20:19)
[2020-03-26] MEDS: TOBRAMYCIN SULFATE NEB 40 MG/ML 30 ML NEB SCH ×2 (08:41→20:19)
--- NOTE | 2020-03-26 08:51 | RADIOLOGY REPORT (SQ) ---
EXAM DESCRIPTION: CHEST SINGLE VIEW IMAGES COMPLETED DATE/TIME: 03/26/2020 7:50 am REASON FOR STUDY: acute resp failure COMPARISON: PET-CT 02/02/2020 Chest films 11/05/2019, 03/24/2020, 03/25/2020 EXAM PARAMETERS: NUMBER OF VIEWS: One view. TECHNIQUE: Single frontal radiographic view of the chest acquired. RADIATION DOSE: NA LIMITATIONS: None. FINDINGS: LUNGS AND PLEURA: Ada lines are present at both lung bases indicating mild interstitial edema. No dense consolidation worrisome for pneumonia. No pleural effusion. No pneumothorax MEDIASTINUM AND HILAR STRUCTURES: No masses. Contour normal. HEART AND VASCULAR STRUCTURES: Stable cardiomegaly and old sternotomy for CABG BONES: No acute findings. HARDWARE: Tracheostomy tube tip upper trachea. Left-sided permanent central line tip superior vena c sarahy. Gastrostomy tube left upper quadrant. OTHER: No other significant finding. IMPRESSION: Mild interstitial edema with Ada lines at both lung bases TECHNICAL DOCUMENTATION: JOB ID: [id number] 2010 [employer] All Rights Reserved Reading location - IP/workstation name: [email or web address]
[2020-03-26] MEDS: APIXABAN 5 MG TABLET GT SCH (11:54)
[2020-03-26] MEDS: CEFEPIME 1 GM/D5W RTU 1 GM/50 ML RTUPB IV SCH (12:01)
[2020-03-26] MEDS: PANTOPRAZOLE SODIUM 40 MG VIAL IV SCH (12:02)
[2020-03-26] MEDS: DIGOXIN INJ 0.5 MG/2 ML AMPULE IV SCH (12:03)
[2020-03-26] MEDS ORDERED: ALBUTEROL SULFATE 0.083% NEB 2.5 MG/3 ML AMPUL NEB PRN (14:31)
--- NOTE | 2020-03-26 14:41 | PDOC PROGRESS REPORT ---
Subjective Progress Note for:: 03/26/20 Subjective:: Patient was transferred from ICU to the medical floor, he has a history of tracheostomy, he presented with pulmonary edema, A. fib with RVR, he was intubated in the emergency room with a trach attached to the ventilator, he was managed in ICU for the first few days in the hospital. I saw him by the bedside today, he does not have a speaking valve, noncommunicating, there is no leukocytosis, chest x-ray did not show pneumonia. He was supposed to be on digoxin and Cardizem for rate control and is also on Eliquis, anticoagulant stroke prophylaxis because of A. fib. Reason For Visit: ACUTE RESPIRATORY FAILURE Physical Exam Vital Signs: Temp Pulse Resp BP Pulse Ox 97.6 F 109 H 18 108/73 97 03/26/20 11:53 03/26/20 13:58 03/26/20 13:58 03/26/20 11:53 03/26/20 13:58 Intake & Output 03/25/20 03/26/20 03/27/20 06:59 06:59 06:59 Intake Total 50 720 Output Total 1078 1600 Balance -1028 -880 Weight 58.7 kg 62.1 kg General appearance: PRESENT: no acute distress Eye exam: PRESENT: PERRLA Neck exam: PRESENT: tracheostomy Respiratory exam: PRESENT: rhonchi Cardiovascular exam: PRESENT: +S1, +S2 GI/Abdominal exam: PRESENT: soft, other - PEG tube in place Neurological exam: PRESENT: alert Results Laboratory Results: 03/26/20 06:39 03/26/20 05:26 03/26/20 03/26/20 03/26/20 05:26 05:26 06:39 WBC Cancelled 8.4 RBC Cancelled 4.33 L Hgb Cancelled 13.9 Hct Cancelled 40.1 MCV Cancelled 93 MCH Cancelled 32.0 MCHC Cancelled 34.6 RDW Cancelled 15.2 H Plt Count Cancelled 201 Seg Neutrophils % Cancelled 80.2 H Sodium 138.0 Potassium 4.0 Chloride 100 Carbon Dioxide 31 H Anion Gap 7 BUN 37 H Creatinine 1.06 Est GFR ( Amer) > 60 Glucose 83 Calcium 8.9 Phosphorus 4.1 Magnesium 2.3 03/23/20 11:30 Sputum Gram Stain - Final 03/23/20 11:30 Sputum Sputum Culture - Final Serratia Marcescens Corynebacterium Striatum Reduced Normal Gris 03/23/20 03/23/20 03/23/20 11:12 11:12 11:12 Creatine Kinase 68 Troponin I 0.052 NT-Pro-B Natriuret Pep 9530 H 03/24/20 03/25/20 03/26/20 04:15 04:41 05:26 Creatine Kinase Troponin I NT-Pro-B Natriuret Pep 8700 H 5280 H 7830 H Impressions: Chest X-Ray 03/26/20 06:00 IMPRESSION: Mild interstitial edema with Ada lines at both lung bases Assessment & Plan - Diagnosis (1) Atrial fibrillation with rapid ventricular response Is this a current diagnosis for this admission?: Yes Plan: Start Cardizem and digoxin continue Eliquis (2) Chronic obstructive pulmonary disease with (acute) exacerbation Is this a current diagnosis for this admission?: Yes Plan: Discontinue IV antibiotic continue bronchodilators (3) Chronic pulmonary edema Is this a current diagnosis for this admission?: Yes (4) Respiratory failure Qualifiers: Chronicity: acute Respiratory failure complication: hypoxia Qualified Code(s): J96.01 - Acute respiratory failure with hypoxia Is this a current diagnosis for this admission?: Yes - Time Time Spent with patient: 35 or more minutes Level of Care: IMCU - Plan Summary Plan Summary: Start clear liquid diet, continue Cardizem, digoxin, bronchodilators, and other treatment
[2020-03-26] MEDS ORDERED: DIGOXIN 0.25 MG TABLET PO SCH (14:45)
[2020-03-26] MEDS: DILTIAZEM HCL 120 MG CAP.SR.24H PO SCH ×2 (19:01→22:22)
[2020-03-26] MEDS: APIXABAN 5 MG TABLET PO SCH ×2 (19:03→21:41)
[2020-03-26] MEDS: LEVOFLOXACIN 750 MG TABLET PO SCH (19:04)
[2020-03-26] MEDS: DIGOXIN 0.25 MG TABLET PO SCH (19:05)
[2020-03-27] MEDS: IPRATROPIUM/ALBUTEROL 0.5-2.5 MG/3 ML AMPUL NEB SCH ×4 (02:17→20:38)
[2020-03-27] MEDS: TOBRAMYCIN SULFATE NEB 40 MG/ML 30 ML NEB SCH ×2 (08:14→20:38)
[2020-03-27] MEDS: BUDESONIDE NEB 0.25 MG/2 ML AMPUL NEB SCH ×2 (08:14→20:38)
[2020-03-27] MEDS: PANTOPRAZOLE SODIUM 40 MG VIAL IV SCH (09:44)
[2020-03-27] MEDS: DILTIAZEM HCL 120 MG CAP.SR.24H PO SCH ×2 (09:44→23:40)
[2020-03-27] MEDS: APIXABAN 5 MG TABLET PO SCH ×2 (09:44→23:26)
[2020-03-27] MEDS: LEVOFLOXACIN 750 MG TABLET PO SCH (09:44)
[2020-03-27] MEDS: DIGOXIN 0.25 MG TABLET PO SCH (09:44)
--- NOTE | 2020-03-27 17:29 | PDOC PROGRESS REPORT ---
Subjective Progress Note for:: 03/27/20 Subjective:: Patient seen by the bedside, he has no new complaints Reason For Visit: ACUTE RESPIRATORY FAILURE Physical Exam Vital Signs: Temp Pulse Resp BP Pulse Ox 97.9 F 94 18 133/61 H 99 03/27/20 10:52 03/27/20 14:00 03/27/20 13:37 03/27/20 10:52 03/27/20 13:37 Intake & Output 03/26/20 03/27/20 03/28/20 06:59 06:59 06:59 Intake Total 720 356 Output Total 1600 400 Balance -880 -44 Weight 62.1 kg 57.9 kg General appearance: PRESENT: no acute distress Eye exam: PRESENT: PERRLA Respiratory exam: PRESENT: clear to auscultation nelson Cardiovascular exam: PRESENT: +S1, +S2 GI/Abdominal exam: PRESENT: soft Results Laboratory Results: 03/26/20 06:39 03/26/20 05:26 03/23/20 03/23/20 03/23/20 11:12 11:12 11:12 Creatine Kinase 68 Troponin I 0.052 NT-Pro-B Natriuret Pep 9530 H 03/24/20 03/25/20 03/26/20 04:15 04:41 05:26 Creatine Kinase Troponin I NT-Pro-B Natriuret Pep 8700 H 5280 H 7830 H Impressions: Chest X-Ray 03/26/20 06:00 IMPRESSION: Mild interstitial edema with Ada lines at both lung bases Assessment & Plan - Diagnosis (1) Atrial fibrillation with rapid ventricular response Is this a current diagnosis for this admission?: Yes Plan: Start Cardizem and digoxin continue Eliquis (2) Chronic obstructive pulmonary disease with (acute) exacerbation Is this a current diagnosis for this admission?: Yes Plan: Discontinue IV antibiotic continue bronchodilators (3) Chronic pulmonary edema Is this a current diagnosis for this admission?: Yes (4) Respiratory failure Qualifiers: Chronicity: acute Respiratory failure complication: hypoxia Qualified Code(s): J96.01 - Acute respiratory failure with hypoxia Is this a current diagnosis for this admission?: Yes - Time Time Spent with patient: 15-24 minutes
[2020-03-28] MEDS: IPRATROPIUM/ALBUTEROL 0.5-2.5 MG/3 ML AMPUL NEB SCH ×4 (02:16→20:35)
[2020-03-28] MEDS: TOBRAMYCIN SULFATE NEB 40 MG/ML 30 ML NEB SCH ×2 (08:41→20:35)
[2020-03-28] MEDS: BUDESONIDE NEB 0.25 MG/2 ML AMPUL NEB SCH ×2 (08:41→20:35)
[2020-03-28] MEDS: APIXABAN 5 MG TABLET PO SCH ×2 (10:29→21:37)
[2020-03-28] MEDS: DILTIAZEM HCL 120 MG CAP.SR.24H PO SCH ×2 (10:29→21:37)
[2020-03-28] MEDS: LEVOFLOXACIN 750 MG TABLET PO SCH (10:29)
[2020-03-28] MEDS: PANTOPRAZOLE SODIUM 40 MG VIAL IV SCH (10:29)
[2020-03-28] MEDS: DIGOXIN 0.25 MG TABLET PO SCH (10:29)
--- NOTE | 2020-03-28 16:03 | PDOC PROGRESS REPORT ---
Subjective Progress Note for:: 03/28/20 Subjective:: Patient seen by the bedside, he has no new complaints,wants to go home Reason For Visit: ACUTE RESPIRATORY FAILURE Physical Exam Vital Signs: Temp Pulse Resp BP Pulse Ox 97.8 F 83 16 98/47 L 96 03/28/20 11:18 03/28/20 14:05 03/28/20 14:05 03/28/20 11:18 03/28/20 14:05 Intake & Output 03/27/20 03/28/20 03/29/20 06:59 06:59 06:59 Intake Total 356 1410 Output Total 400 1800 Balance -44 -390 Weight 57.9 kg 57.7 kg 57.7 kg General appearance: PRESENT: no acute distress Eye exam: PRESENT: PERRLA Respiratory exam: PRESENT: clear to auscultation nelson Cardiovascular exam: PRESENT: +S1, +S2 GI/Abdominal exam: PRESENT: soft Neurological exam: PRESENT: alert Results Laboratory Results: 03/26/20 06:39 03/26/20 05:26 03/23/20 14:39 Blood Blood Culture - Final NO GROWTH IN 5 DAYS 03/23/20 11:12 Blood Blood Culture - Final NO GROWTH IN 5 DAYS 03/23/20 03/23/20 03/23/20 11:12 11:12 11:12 Creatine Kinase 68 Troponin I 0.052 NT-Pro-B Natriuret Pep 9530 H 03/24/20 03/25/20 03/26/20 04:15 04:41 05:26 Creatine Kinase Troponin I NT-Pro-B Natriuret Pep 8700 H 5280 H 7830 H Impressions: Chest X-Ray 03/26/20 06:00 IMPRESSION: Mild interstitial edema with Ada lines at both lung bases Assessment & Plan - Diagnosis (1) Atrial fibrillation with rapid ventricular response Is this a current diagnosis for this admission?: Yes (2) Chronic obstructive pulmonary disease with (acute) exacerbation Is this a current diagnosis for this admission?: Yes (3) Chronic pulmonary edema Is this a current diagnosis for this admission?: Yes (4) Respiratory failure Qualifiers: Chronicity: acute Respiratory failure complication: hypoxia Qualified Code(s): J96.01 - Acute respiratory failure with hypoxia Is this a current diagnosis for this admission?: Yes - Time Time Spent with patient: Less than 15 minutes Level of Care: IMCU
[2020-03-29] MEDS: IPRATROPIUM/ALBUTEROL 0.5-2.5 MG/3 ML AMPUL NEB SCH ×3 (02:35→13:45)
[2020-03-29] MEDS: BUDESONIDE NEB 0.25 MG/2 ML AMPUL NEB SCH (08:05)
[2020-03-29] MEDS: TOBRAMYCIN SULFATE NEB 40 MG/ML 30 ML NEB SCH (08:05)
--- NOTE | 2020-03-29 09:59 | ST Inp Modified Barium Swallow ---
Medical Diagnosis - Medical Diagnoses Medical Diagnosis Description & ICD-10 Code(s): acute on chronic respiratory failure - ICD-10 Tx Diagnosis Coding (1) Respiratory failure ICD-10 Code(s): J96.90 - RESPIRATORY FAILURE, UNSP, UNSP W HYPOXIA OR HYPERCAPNIA (2) Tracheostomy in place ICD-10 Code(s): Z93.0 - TRACHEOSTOMY STATUS (3) Pneumonia ICD-10 Code(s): J18.9 - PNEUMONIA, UNSPECIFIED ORGANISM [place] [facility] [place] Date: 03/29/20 Date of Onset: 03/25/20 - order date - History -: Medical - per EMR: patient admitted 03/23 with acute respiratory failure, requiring mechanical ventilation via pre-existing tracheotomy. Prior medical history includes tracheotomy due to esophageal cancer. Per nursing notes, there was an episode of suspected aspiration requiring suctioning. Patient was then placed on a clear liquid diet. Patient reports that he was eating regular foods at home. Medications: Medications Reviewed Allergies: Refer to medical record - Subjective Current Nutritional Means: PO - clear liquid diet Current Symptoms: Pneumonia Pain: Patient reports, 0/5 - Objective Assessment: Upright, Left Lateral - Food Trials Food Trials Used: Thin liquids, Pureed, Regular The Patient: Was Able to Self Feed - Assessment Labial Function: Within Functional Limits Lingual Function: Within Functional Limits Mandibular Function: Within Functional Limits Dentition: Edentulous Velo-Pharyngeal Function: Unremarkable - Pharyngeal Stage Decreased Laryngeal Elevation: Yes Reduced Pressure Generation: Yes Pre-Swallowing Pooling in Valleculae: Mild Pre-Swallowing Pooling in Pyriforms: Mild Reduced Thyro-Hyiod Approximation: Yes Reduced Epiglottic Excursion: Yes Multiple Swallows With: Effective - partial clearance Post Swallow Residuals in Valleculae: Mild Post Swallow Residuals in Pyriforms: Mild Pahryngeal Stage Comments: Patient demonstrated period of oral holding prior to the swallow. Pharyngeal movements (pharyngeal constriction, laryngeal elevation, epiglottic inversion) all mildly reduced, possibly due to presence of tracheostomy. This reduced movement led to pharyngeal residue and penetration of thin liquids. - Impression/Summary Laryngeal Penetration: Yes - with thin liquid trials x2 Tracheal Aspiration: no Patient Presents With: Pharyngeal stage dysph. - moderate Risk of Aspiration: Mild - Recommendations Solid Diet Recommendations: Mechanical Soft, Ground Meat - due to dentition Liquid Diet Recommendations: Thin Strict Aspitarion Precautions: Yes Dysphagia Therapy with TOLL TEST WORKER: No Recommended Techniques: Fully Upright During Meal, Dry Swallow After Bite, Small Bites and Sips, Alternate Bites/Sips Other Recommendations: Diet recommendations relayed to nursing staff. Strict aspiration precautions recommended (fully upright, slow rate, etc.) due to pharyngeal residue and reduced movement. - Time Total Time: 30 Total Timed Minutes: 30
[2020-03-29] MEDS: APIXABAN 5 MG TABLET PO SCH (10:37)
[2020-03-29] MEDS: DILTIAZEM HCL 120 MG CAP.SR.24H PO SCH (10:37)
[2020-03-29] MEDS: DIGOXIN 0.25 MG TABLET PO SCH (10:37)
[2020-03-29] MEDS: LEVOFLOXACIN 750 MG TABLET PO SCH (10:37)
[2020-03-29] MEDS: PANTOPRAZOLE SODIUM 40 MG VIAL IV SCH (10:38)
--- NOTE | 2020-03-29 11:00 | RADIOLOGY REPORT (SQ) ---
EXAM DESCRIPTION: COOKIE SWALLOW IMAGES COMPLETED DATE/TIME: 03/29/2020 10:03 am REASON FOR STUDY: aspiration risk esophageal cancer, tracheostomy tube, pneumonia and respiratory di stress COMPARISON: None. TECHNIQUE: Videofluoroscopic swallowing examination was performed in conjunction with speech patholo gy. Videofluoroscopic imaging was obtained and reviewed and these are the findings: RADIATION DOSE: 2 minutes 7 seconds of fluoroscopy was used. 1 images saved to PACS. LIMITATIONS: None FINDINGS: The patient was brought into the fluoro room and placed upright on a modified barium swall ow chair. The patient was then given multiple consistencies mixed with barium to swallow under live fluoroscopic video guidance. According to the Speech Pathologist there was trace laryngeal penetrati on without aspiration. Post swallow residual contrast within the vallecular and piriform sinuses. IMPRESSION: TRACE LARYNGEAL PENETRATION WITHOUT ASPIRATION. PLEASE SEE SPEECH PATHOLOGIST REPORT FOR OTHER FINDINGS AND RECOMMENDATIONS. COMMENT: Quality ID [id number]: Final reports for procedures using fluoroscopy that document radiation exp osure indices, or exposure time and number of fluorographic images (if radiation exposure indices are not available) TECHNICAL DOCUMENTATION: JOB ID: [id number] 2010 [employer]- All Rights Reserved Reading location - IP/workstation name: [email or web address]
[2020-03-29 18:27] VITALS: BP 114/73
--- NOTE | 2020-03-29 19:54 | PDOC DISCHARGE SUMMARY ---
Impression - Admit/DC Date/PCP Admission Date/Primary Care Provider: 03/23/20 12:35 MARCOS WILSON MD Discharge Date: 03/29/20 - Discharge Diagnosis (1) Respiratory failure Is this a current diagnosis for this admission?: Yes (2) Atrial fibrillation with rapid ventricular response Is this a current diagnosis for this admission?: Yes (3) Chronic obstructive pulmonary disease with (acute) exacerbation Is this a current diagnosis for this admission?: Yes (4) Chronic pulmonary edema Is this a current diagnosis for this admission?: Yes (5) Malnutrition of mild degree Is this a current diagnosis for this admission?: Yes - Additional Information Resuscitation Status: Full Code Discharge Diet: Cardiac Referrals: MARCOS WILSON MD [Primary Care Provider] - Follow up as needed Prescriptions: RX: Digoxin 125 mcg PO DAILY #90 tablet RX: Digoxin [Lanoxin 0.25 mg Tablet] 0.125 mg PO DAILY #90 RX: Budesonide [Pulmicort Neb 0.25 mg/2 ml Ampul] 0.25 mg NEB RTQ12 #180 ampul.[facility] Home Medications: RX: Hydroxyzine Pamoate [Vistaril] 25 mg PO HSP PRN 11/05/19 RX: Omeprazole 20 mg PO Q12 11/05/19 RX: Oxycodone HCl/Acetaminophen [Oxycodone-Acetaminophen 10-325] 1 tab PO Q4HP PRN 11/05/19 RX: Tizanidine HCl 2 mg PO HSP PRN 11/05/19 RX: Apixaban [Eliquis 5 mg Tablet] 5 mg PO Q12 #60 tablet 11/13/19 RX: Albuterol Sulfate [Ventolin 0.083% Neb 2.5 mg/3 mL Ampul] 2.5 mg NEB RTQIDP PRN 02/20/20 RX: Diltiazem HCl [Cardizem Cd 120 mg Capsule] 120 mg PO Q12 03/23/20 RX: Budesonide [Pulmicort Neb 0.25 mg/2 ml Ampul] 0.25 mg NEB RTQ12 #180 ampul.neb 03/29/20 RX: Digoxin 125 mcg PO DAILY #90 tablet 03/29/20 RX: Digoxin [Lanoxin 0.25 mg Tablet] 0.125 mg PO DAILY #90 03/29/20 History of Present Illiness History of Present Illness: RUKHSANA GRAHAM is a 70 year old male,This 70-year-old male smoker [facility] with complaints of increasing shortness of breath. In the emergency department, the patient was found to be in atrial fibrillation (chronic) with rapid ventricular response with a ventricular rate over 200. Of note, the patient is status post tracheostomy (for esophageal cancer). He was initially placed on supplemental oxygen but failed to improve and ultimately was placed back on mechanical ventilatory support via tracheostomy.At the time of clinical interview, the patient is on Cardizem infusion for rapid ventricular response. Regular rate 762223. SBP 80s, MAP 71. He is arousable and does follow command .He was recently admitted to this facility on 02/20/2020. While documentation suggest that he was tested for COVID-19 at that time, there is no result in the medical record to corroborate. While the patient is afebrile at the time of clinical encounter, the patient did have a rapidly progressive hypoxemic respiratory failure in the emergency department. He was noted to be lymphocytopenic on presentation. Potassium 4.9. Hospital Course Hospital Course: Patient was admitted for the management of acute hypoxemic respiratory failure, he required ventilatory support via the tracheostomy,He was managed in intensive care unit by the consultant in ergonomics and safety he was empirically treated with IV antibiotic for presumptive pneumonia, he has a huge skin cancer on the vertex of his head, my understanding is that he does not want treatment for this cancer. He has a history of esophageal cancer that is why he has the tracheostomy placement. He underwent modified barium swallow today, there was no tracheal aspiration, there was laryngeal penetration, mechanical soft diet recommended. Patient is wanting to go home, basically he is stable enough for discharge at this point, he has chronic comorbid condition including chronic respiratory failure, severe COPD, underweight.He also had atrial fibrillation with rapid ventricular response, he was supposed to be on digoxin and Cardizem but the digoxin level was 0 suggesting poor medication adherence. He was treated with Cardizem infusion Physical Exam Vital Signs: Temp Pulse Resp BP Pulse Ox 97.5 F 52 L 19 114/73 100 03/29/20 18:24 03/29/20 18:24 03/29/20 18:24 03/29/20 18:24 03/29/20 18:24 Intake & Output 03/28/20 03/29/20 03/30/20 06:59 06:59 06:59 Intake Total 1410 2047 440 Output Total 6724 6422 975 Balance -390 272 -535 Weight 57.7 kg 57.7 kg General appearance: PRESENT: no acute distress Head exam: PRESENT: other - Irregular mass in the vertex of the head Eye exam: PRESENT: PERRLA Respiratory exam: PRESENT: decreased breath sounds Cardiovascular exam: PRESENT: +S1, +S2 GI/Abdominal exam: PRESENT: soft, other - PEG tube Neurological exam: PRESENT: alert Results Laboratory Results: WBC 8.4 10^3/uL (4.0-10.5) 03/26/20 06:39 RBC 4.33 10^6/uL (4.35-5.55) L 03/26/20 06:39 Hgb 13.9 g/dL (13.5-17.0) 03/26/20 06:39 Hct 40.1 % (37.9-51.0) 03/26/20 06:39 MCV 93 fl (80-97) 03/26/20 06:39 MCH 32.0 pg (27.0-33.4) 03/26/20 06:39 MCHC 34.6 g/dL (32.0-36.0) 03/26/20 06:39 RDW 15.2 % (11.5-14.0) H 03/26/20 06:39 Plt Count 201 10^3/uL (150-450) 03/26/20 06:39 Lymph % (Auto) 8.0 % (13-45) L 03/26/20 06:39 [place] % (Auto) 9.6 % (3-13) 03/26/20 06:39 Eos % (Auto) 1.5 % (0-6) 03/26/20 06:39 Baso % (Auto) 0.7 % (0-2) 03/26/20 06:39 Absolute Neuts (auto) 6.7 10^3/uL (1.7-8.2) 03/26/20 06:39 Absolute Lymphs (auto) 0.7 10^3/uL (0.5-4.7) 03/26/20 06:39 Absolute Monos (auto) 0.8 10^3/uL (0.1-1.4) 03/26/20 06:39 Absolute Eos (auto) 0.1 10^3/uL (0.0-0.6) 03/26/20 06:39 Absolute Basos (auto) 0.1 10^3/uL (0.0-0.2) 03/26/20 06:39 Total Counted 100 03/24/20 04:15 Seg Neutrophils % 80.2 % (42-78) H 03/26/20 06:39 Seg Neuts % (Manual) 92 % (42-78) H 03/24/20 04:15 Band Neutrophils % 1 % (3-5) L 03/24/20 04:15 Lymphocytes % (Manual) 5 % (13-45) L 03/24/20 04:15 Monocytes % (Manual) 2 % (3-13) L 03/24/20 04:15 Eosinophils % (Manual) 0 % (0-6) 03/24/20 04:15 Basophils % (Manual) 0 % (0-2) 03/24/20 04:15 Abs Neuts (Manual) 12.4 10^3/uL (1.7-8.2) H 03/24/20 04:15 Abs Lymphs (Manual) 0.7 10^3/uL (0.5-4.7) 03/24/20 04:15 Abs Monocytes (Manual) 0.3 10^3/uL (0.1-1.4) 03/24/20 04:15 Absolute Eos (Manual) 0.0 10^3/uL (0.0-0.6) 03/24/20 04:15 Abs Basophils (Manual) 0.0 10^3/uL (0.0-0.2) 03/24/20 04:15 Platelet Estimate Cancelled 03/26/20 05:26 Platelet Comment ADEQUATE 03/24/20 04:15 Anisocytosis SLIGHT 03/24/20 04:15 Ovalocytes SLIGHT 03/24/20 04:15 Carbonic Acid 1.04 mmol/L (1.05-1.35) L 03/25/20 04:12 HCO3/H2CO3 Ratio 20:1 03/25/20 04:12 ABG pH 7.42 (7.35-7.45) 03/25/20 04:12 ABG pCO2 34.6 mmHg (35-45) L 03/25/20 04:12 ABG pO2 81.1 mmHg (80-100) 03/25/20 04:12 ABG HCO3 21.7 mmol/L (20-24) 03/25/20 04:12 ABG Total CO2 22.8 mmol/L (23-27) L 03/25/20 04:12 ABG O2 Saturation 96.2 % (94-98) 03/25/20 04:12 ABG Base Excess -2.1 mmol/L 03/25/20 04:12 FiO2 40% 03/25/20 04:12 Sodium 138.0 mmol/L (137-145) 03/26/20 05:26 Potassium 4.0 mmol/L (3.6-5.0) 03/26/20 05:26 Chloride 100 mmol/L (98-107) 03/26/20 05:26 Carbon Dioxide 31 mmol/L (22-30) H 03/26/20 05:26 Anion Gap 7 (5-19) 03/26/20 05:26 BUN 37 mg/dL (7-20) H 03/26/20 05:26 Creatinine 1.06 mg/dL (0.52-1.25) 03/26/20 05:26 Est GFR ( Amer) > 60 (>60) 03/26/20 05:26 Est GFR (MDRD) Non-Af > 60 (>60) 03/26/20 05:26 Glucose 83 mg/dL (75-110) 03/26/20 05:26 Calcium 8.9 mg/dL (8.4-10.2) 03/26/20 05:26 Phosphorus 4.1 mg/dL (2.5-4.5) 03/26/20 05:26 Magnesium 2.3 mg/dL (1.6-2.3) 03/26/20 05:26 Total Bilirubin 1.1 mg/dL (0.2-1.3) 03/23/20 11:12 Direct Bilirubin 0.1 mg/dL (0.0-0.4) 03/23/20 11:12 Neonat Total Bilirubin Not Reportable 03/23/20 11:12 Neonat Direct Bilirubin Not Reportable 03/23/20 11:12 Neonat Indirect Bili Not Reportable 03/23/20 11:12 AST 32 U/L (17-59) 03/23/20 11:12 ALT 20 U/L (<50) 03/23/20 11:12 Alkaline Phosphatase 87 U/L (38-126) 03/23/20 11:12 Creatine Kinase 68 U/L (55-170) 03/23/20 11:12 Troponin I 0.052 ng/mL 03/23/20 11:12 NT-Pro-B Natriuret Pep 7830 pg/mL (<125) H 03/26/20 05:26 Total Protein 8.3 g/dL (6.3-8.2) H 03/23/20 11:12 Albumin 4.2 g/dL (3.5-5.0) 03/23/20 11:12 Prealbumin 9.2 mg/dL (17.6-36.0) L 03/25/20 04:41 Urine Color STRAW 03/23/20 13:00 Urine Appearance CLEAR 03/23/20 13:00 Urine pH 5.0 (5.0-9.0) 03/23/20 13:00 Ur Specific [place] 1.006 03/23/20 13:00 Urine Protein 30 mg/dL (NEGATIVE) H 03/23/20 13:00 Urine Glucose (UA) NEGATIVE mg/dL (NEGATIVE) 03/23/20 13:00 Urine Ketones NEGATIVE mg/dL (NEGATIVE) 03/23/20 13:00 Urine Blood NEGATIVE (NEGATIVE) 03/23/20 13:00 Urine Nitrite NEGATIVE (NEGATIVE) 03/23/20 13:00 Urine Bilirubin NEGATIVE (NEGATIVE) 03/23/20 13:00 Urine Urobilinogen NEGATIVE mg/dL (<2.0) 03/23/20 13:00 Ur Leukocyte Esterase NEGATIVE (NEGATIVE) 03/23/20 13:00 Urine WBC (Auto) 2 /HPF 03/23/20 13:00 Urine RBC (Auto) 1 /HPF 03/23/20 13:00 U Hyaline Cast (Auto) 4 /LPF 03/23/20 13:00 Squamous Epi Cells Auto 1 /HPF 03/23/20 13:00 Urine Mucus (Auto) RARE /LPF 03/23/20 13:00 Urine Ascorbic Acid NEGATIVE (NEGATIVE) 03/23/20 13:00 Digoxin 1.05 ng/mL (0.8-2.0) 03/26/20 05:26 Urine Opiates Screen NEGATIVE 03/23/20 17:00 Urine Methadone Screen NEGATIVE 03/23/20 17:00 Ur Barbiturates Screen NEGATIVE 03/23/20 17:00 Ur Phencyclidine Scrn NEGATIVE 03/23/20 17:00 Ur Amphetamines Screen NEGATIVE 03/23/20 17:00 U Benzodiazepines Scrn NEGATIVE 03/23/20 17:00 Urine Cocaine Screen NEGATIVE 03/23/20 17:00 U Marijuana (THC) Screen NEGATIVE 03/23/20 17:00 COVID-19 Source Cancelled 03/23/20 13:17 COVID-19 (RENITA) Cancelled 03/23/20 13:17 SARS-CoV-2 (PCR) NEGATIVE (NEGATIVE) 03/23/20 13:17 Slides for Path Review Cancelled 03/26/20 05:26 03/23/20 03/23/20 03/24/20 11:12 11:12 04:15 Troponin I 0.052 NT-Pro-B Natriuret Pep 9530 H 8700 H 03/25/20 03/26/20 04:41 05:26 Troponin I NT-Pro-B Natriuret Pep 5280 H 7830 H Impressions: Chest X-Ray 03/23/20 11:16 IMPRESSION: Persistent bilateral interstitial alveolar airspace disease most likely edema. This is slightly improved from prior study. There is a small left effusion. Heart remains enlarged. Tracheostomy tube remains in place. Chest X-Ray 03/24/20 06:00 IMPRESSION: CARDIOMEGALY. IMPROVEMENT IN THE FINDINGS OF PULMONARY EDEMA. Chest X-Ray 03/24/20 17:38 IMPRESSION: Persistent vascular congestion although improved from the earlier film. Chest X-Ray 03/25/20 06:00 IMPRESSION: STABLE APPEARANCE OF THE CHEST. SUPPORT DEVICES UNCHANGED. Chest X-Ray 03/26/20 06:00 IMPRESSION: Mild interstitial edema with Ada lines at both lung bases Modified Barium Swallow 03/29/20 00:00 IMPRESSION: TRACE LARYNGEAL PENETRATION WITHOUT ASPIRATION. PLEASE SEE SPEECH PATHOLOGIST REPORT FOR OTHER FINDINGS AND RECOMMENDATIONS. Stroke Is this a Stroke Patient?: No Acute Heart Failure - Is this a Heart Failure Patient?: No
== END 2020-03-29 19:15 | disposition home or self-care (01) | DRG 208 ==
LOC: ER 10:57 → EH 12:35 → ICU 16:20 → 3S 03-26 04:59
PROVIDERS: ADMIT Internal Medicine Geriatric Medicine; ATTEND Internal Medicine Geriatric Medicine
PROC: 5A1945Z Respiratory Ventilation, 24-96 Consecutive Hours (ICD-10-PCS; principal; 2020-03-23)
DX: J96.21 Acute and chronic respiratory failure with hypoxia (principal); I50.21 Acute systolic (congestive) heart failure; J15.6 Pneumonia due to other Gram-negative bacteria; J44.1 Chronic obstructive pulmonary disease with (acute) exacerbation; E44.1 Mild protein-calorie malnutrition; J81.1 Chronic pulmonary edema; I48.20 Chronic atrial fibrillation, unspecified; Z68.1 Body mass index [BMI] 19.9 or less, adult; Z16.11 Resistance to penicillins; Z93.0 Tracheostomy status; Z20.828 Contact with and (suspected) exposure to other viral communicable diseases; D72.810 Lymphocytopenia; C44.40 Unspecified malignant neoplasm of skin of scalp and neck; J96.22 Acute and chronic respiratory failure with hypercapnia; F17.210 Nicotine dependence, cigarettes, uncomplicated; I25.10 Atherosclerotic heart disease of native coronary artery without angina pectoris; L57.0 Actinic keratosis; B96.89 Other specified bacterial agents as the cause of diseases classified elsewhere; Z79.51 Long term (current) use of inhaled steroids; Z79.01 Long term (current) use of anticoagulants; Z79.899 Other long term (current) drug therapy; Z85.01 Personal history of malignant neoplasm of esophagus; Z91.14 Patient's other noncompliance with medication regimen; I25.2 Old myocardial infarction; Z86.14 Personal history of Methicillin resistant Staphylococcus aureus infection; Z95.5 Presence of coronary angioplasty implant and graft; Z95.1 Presence of aortocoronary bypass graft; Z88.6 Allergy status to analgesic agent; Z88.0 Allergy status to penicillin; Z79.891 Long term (current) use of opiate analgesic
CPT/HCPCS: 36415; 71045; 74230; 80048; 80053; 80162; 80307; 81001; 82550; 82803; 83735; 83880; 84100; 84134; 84484; 85025; 87040; 87070; 87077; 87186; 87205; 87635; 93005; 93010; 94002; 94003; 94640; 96374; 96375; 99291; C9113; J0692; J1160; J1940; J2060; J3260; J3490; J7040; J7620; J7626

== ENCOUNTER 2020-04-27 11:15 | Inpatient (IN) | payer MEDICARE, MEDICAID ==
[2020-04-27 11:43] LABS: ABSOLUTE BASOPHILS # (AUTO) 0.1 10^3/uL (0.0-0.2); ABSOLUTE LYMPHOCYTES (AUTO) 0.7 10^3/uL (0.5-4.7); ABSOLUTE MONOCYTES (AUTO) 0.7 10^3/uL (0.1-1.4); ABSOLUTE NEUT (AUTO) 9.8 10^3/uL (1.7-8.2); BASOPHILS % (AUTO) 0.5 % (0-2); EOSINOPHILS % (AUTO) 0.1 % (0-6); HEMATOCRIT 40.8 % (37.9-51.0); HEMOGLOBIN 13.4 g/dL (13.5-17.0); LYMPHOCYTES % (AUTO) 5.8 % (13-45); MEAN CORPUSCULAR HEMOGLOBIN 32.4 pg (27.0-33.4); MEAN CORPUSCULAR VOLUME 98 fl (80-97); MONOCYTES % (AUTO) 6.2 % (3-13); PLATELET COUNT 179 10^3/uL (150-450); RED BLOOD COUNT 4.15 10^6/uL (4.35-5.55); SEGMENTED NEUTROPHILS % (AUTO) 87.4 % (42-78); TOTAL CELLS COUNTED % (AUTO) 100 %; WHITE BLOOD COUNT 11.2 10^3/uL (4.0-10.5)
[2020-04-27] MEDS: DILTIAZEM HCL/D5W 125 MG/125 ML RTUINJ IV PRN ×2 (11:54→21:53)
[2020-04-27 11:57] LABS: ALBUMIN 3.7 g/dL (3.5-5.0); ALKALINE PHOSPHATASE 68 U/L (38-126); ANION GAP 15 (5-19); ASPARTATE AMINO TRANSFERASE 582 U/L (17-59); BILIRUBIN,DIRECT 1.5 mg/dL (0.0-0.4); BILIRUBIN,TOTAL 3.9 mg/dL (0.2-1.3); BLOOD UREA NITROGEN 42 mg/dL (7-20); CALCIUM 9.5 mg/dL (8.4-10.2); CARBON DIOXIDE 17 mmol/L (22-30); CHLORIDE 104 mmol/L (98-107); CREATINE KINASE 73 U/L (55-170); GLUCOSE 70 mg/dL (75-110); POTASSIUM 5.3 mmol/L (3.6-5.0); TOTAL PROTEIN 7.4 g/dL (6.3-8.2)
--- NOTE | 2020-04-27 12:19 | RADIOLOGY REPORT (SQ) ---
EXAM DESCRIPTION: CHEST SINGLE VIEW IMAGES COMPLETED DATE/TIME: 04/27/2020 11:02 am REASON FOR STUDY: COPD exacerbation COMPARISON: 03/26/2020 EXAM PARAMETERS: NUMBER OF VIEWS: One view. TECHNIQUE: Single frontal radiographic view of the chest acquired. RADIATION DOSE: NA LIMITATIONS: None. FINDINGS: LUNGS AND PLEURA: There are new patchy areas of consolidation and alveolar opacities in [place] th lungs. Prominence of the pulmonary [place]. No pleural effusion or pneumothorax. MEDIASTINUM AND HILAR STRUCTURES: No masses. Contour normal. HEART AND VASCULAR STRUCTURES: Mild cardiomegaly. Indistinctness of the pulmonary vasculature with c ephalization of vessels and peribronchial cuffing consistent with moderate pulmonary edema. BONES: No acute findings. HARDWARE: Tracheostomy is in good position in the upper trachea. A MediPort catheter with tip in the mid SVC is unchanged. Postoperative changes of prior CABG. OTHER: No other significant finding. IMPRESSION: Moderate pulmonary edema. Superimposed infectious/ inflammatory process in both lungs i s not entirely excluded. TECHNICAL DOCUMENTATION: JOB ID: [id number] 2010 [employer]- All Rights Reserved Reading location - IP/workstation name: [email or web address]
--- NOTE | 2020-04-27 13:15 | EKG REPORT ---
SEVERITY:- ABNORMAL ECG - ATRIAL FIBRILLATION, V-RATE 63-139 RIGHT AXIS DEVIATION : Confirmed by: Ismael Stout 27-Apr-2020 13:14:54
[2020-04-27] MEDS ORDERED: FUROSEMIDE INJ/PF 40 MG/4 ML SDV IV ONE (14:03)
[2020-04-27] MEDS ORDERED: LEVOFLOXACIN 750 MG/D5W RTU 750 MG/150 ML RTUPB IV ONE (14:23)
[2020-04-27 16:57] LABS: APPEARANCE,URINE CLEAR; BILIRUBIN,URINE NEGATIVE (NEGATIVE); COLOR,URINE STRAW; GLUCOSE, URINE NEGATIVE (NEGATIVE); KETONES,URINE NEGATIVE (NEGATIVE); LEUKOCYTE ESTERASE,URINE NEGATIVE (NEGATIVE); NITRITE,URINE NEGATIVE (NEGATIVE); PROTEIN,URINE NEGATIVE (NEGATIVE); URINE SPECIFIC GRAVITY 1.005; UROBILINOGEN,URINE NEGATIVE mg/dL (<2.0)
[2020-04-27] MEDS ORDERED: LEVALBUTEROL HCL NEB 1.25 MG/3 ML AMPUL NEB PRN (17:35)
[2020-04-27] MEDS ORDERED: GUAIFENESIN SYRP 200 MG/10 ML UDC PO PRN (17:38)
[2020-04-27] MEDS ORDERED: ACETAMINOPHEN 325 MG TABLET PO PRN (17:40)
[2020-04-27] MEDS ORDERED: OXYCODONE-ACETAMINOPHEN 5-325 MG TABLET PO PRN (17:43)
[2020-04-27] MEDS ORDERED: DIGOXIN INJ 0.5 MG/2 ML AMPULE IV ONE (20:45)
[2020-04-27] MEDS: BENZONATATE 100 MG CAPSULE PO SCH (21:52)
[2020-04-27] MEDS: APIXABAN 5 MG TABLET PO SCH (21:52)
[2020-04-28] MEDS: BENZONATATE 100 MG CAPSULE PO SCH ×3 (05:13→22:56)
[2020-04-28] MEDS: PANTOPRAZOLE SODIUM 40 MG TABLET.DR PO SCH (05:13)
[2020-04-28 07:30] LABS: HEMATOCRIT 35.5 % (37.9-51.0); MEAN CORPUSCULAR HEMOGLOBIN 32.6 pg (27.0-33.4); MEAN CORPUSCULAR HGB CONC 33.8 g/dL (32.0-36.0); MEAN CORPUSCULAR VOLUME 97 fl (80-97); PLATELET COUNT 148 10^3/uL (150-450); RED BLOOD COUNT 3.67 10^6/uL (4.35-5.55); RED CELL DISTRIBUTION WIDTH 16.8 % (11.5-14.0); WHITE BLOOD COUNT 9.5 10^3/uL (4.0-10.5)
[2020-04-28 07:51] LABS: ALBUMIN 2.6 g/dL (3.5-5.0); ALKALINE PHOSPHATASE 55 U/L (38-126); ANION GAP 6 (5-19); ASPARTATE AMINO TRANSFERASE 580 U/L (17-59); BILIRUBIN,DIRECT 1.1 mg/dL (0.0-0.4); BILIRUBIN,TOTAL 2.8 mg/dL (0.2-1.3); BLOOD UREA NITROGEN 43 mg/dL (7-20); CALCIUM 8.5 mg/dL (8.4-10.2); CHLORIDE 101 mmol/L (98-107); GLUCOSE 110 mg/dL (75-110)
[2020-04-28 08:20] LABS: CARBON DIOXIDE 27 mmol/L (22-30); POTASSIUM 3.3 mmol/L (3.6-5.0)
[2020-04-28 08:43] LABS: ABSOLUTE LYMPHOCYTES# (MANUAL) 0.3 10^3/uL (0.5-4.7); ABSOLUTE MONOCYTES # (MANUAL) 0.3 10^3/uL (0.1-1.4); BASOPHILS % (MANUAL) 0 % (0-2); EOSINOPHILS % (MANUAL) 0 % (0-6); LYMPHOCYTES % (MANUAL) 3 % (13-45); MONOCYTES % (MANUAL) 3 % (3-13); SEGMENTED NEUTROPHILS % (MAN) 94 % (42-78); TOTAL CELLS COUNTED 100
[2020-04-28 08:44] LABS: HYPOCHROMASIA 1+; POLYCHROMASIA 1+
[2020-04-28 08:45] LABS: ANISOCYTOSIS 1+; OVALOCYTES 1+; PLATELET COMMENT DECREASED; POIKILOCYTOSIS 1+
[2020-04-28] MEDS: DILTIAZEM HCL 120 MG CAP.SR.24H PO SCH ×2 (09:56→22:57)
[2020-04-28] MEDS: APIXABAN 5 MG TABLET PO SCH ×2 (09:56→22:57)
[2020-04-28] MEDS: DIGOXIN 0.125 MG TABLET PO SCH (09:56)
[2020-04-28] MEDS ORDERED: DIGOXIN 0.25 MG TABLET PO SCH (10:00)
--- NOTE | 2020-04-28 10:34 | ER Document Report ---
Entered by ESTRELLITA WASSERMAN SCRIBE 04/27/20 1131 Acting as scribe for:TIFFANI MARINO MD ED General - General TRAVEL OUTSIDE OF THE [place] IN LAST 30 DAYS: No <TIFFANI MARINO - Last Filed: 04/27/20 14:59> <KIMBERLY DIEGO - Last Filed: 04/27/20 15:52> - General Chief Complaint: Arrhythmia Stated Complaint: BLOOD PRESSURE ISSUE Time Seen by Provider: 04/27/20 11:24 Primary Care Provider: DEYSI CONTRERAS MD [ACTIVE STAFF] - Follow up as needed Notes: This 70-year-old male patient brought to emergency room by EMS for shortness of breath. The patient was in atrial fibrillation with RVR and was treated with Cardizem IV prior to arrival. Nurse reports that when the patient arrived, EMS stopped the Cardizem drip and threw the medicine away. His heart rate went back up so Cardizem drip was reestablished. The patient is well-known to me, I admitted him with a similar presentation about a month ago. He does report that his breathing has been getting worse, and that the swelling in his legs has been getting worse. He is tachypneic. The inner cannula of his tracheostomy was pulled out partially and found to be full of purulent sputum. Respiratory therapist obtained another inner cannula and change them out. (TIFFANI MARINO) - Related Data Allergies/Adverse Reactions: Penicillins Allergy (Severe, Verified 03/24/20 08:00) turned blue as infant acetaminophen [From Tylenol] Allergy (Verified 03/24/20 08:00) aspirin Allergy (Verified 03/24/20 08:00) Past Medical History - Social History Smoking Status: Current Every Day Smoker Family History: Hypertension - Past Medical History Cardiac Medical History: Reports: Hx Atrial Fibrillation, Hx Congestive Heart Failure - LVEF 20%, Hx Coronary Artery Disease, Hx Heart Attack - 2009 Denies: Hx DVT, Hx Hypertension, Hx Pulmonary Embolism Pulmonary Medical History: Reports: Hx COPD, Hx Respiratory Failure Denies: Hx Asthma, Hx Bronchitis, Hx Pneumonia, Hx Sleep Apnea Neurological Medical History: Denies: Hx Cerebrovascular Accident, Hx Seizures Endocrine Medical History: Denies: Hx Diabetes Mellitus Type 1, Hx Diabetes Mellitus Type 2 Renal/ Medical History: Denies: Hx Peritoneal Dialysis Malignancy Medical History: Reports Hx Skin Cancer GI Medical History: Denies: Hx Cirrhosis, Hx Hepatitis Musculoskeletal Medical History: Denies Hx Arthritis, Denies Hx Gout Skin Medical History: Denies Hx Eczema, Denies Hx Psoriasis Psychiatric Medical History: Denies: Hx Depression Infectious Medical History: Reports: Hx MRSA. Denies: Hx Hepatitis Past Surgical History: Reports: Hx Abdominal Surgery - PEG, Hx Cardiac Catheterization, Hx Cardiac Surgery - CAPG, Hx Coronary Artery Bypass Graft - 11/2011, Hx Coronary Stent - Immunizations Immunizations up to date: Yes Hx Diphtheria, Pertussis, Tetanus Vaccination: No - unk Hx Pneumococcal Vaccination: 08/04/19 <TIFFANI MARINO - Last Filed: 04/27/20 14:59> Review of Systems - Review of Systems Constitutional: Weakness EENT: No symptoms reported Cardiovascular: Palpitations, Edema Respiratory: Cough, Short of breath, Sputum, Wheezing Gastrointestinal: No symptoms reported Musculoskeletal: No symptoms reported Skin: No symptoms reported Hematologic/Lymphatic: No symptoms reported Neurological/Psychological: No symptoms reported <TIFFANI MARINO - Last Filed: 04/27/20 14:59> Physical Exam - HEENT Head: Normocephalic, Atraumatic Eyes: Normal Pupils: PERRL Neck: Other - Tracheostomy - Respiratory Respiratory status: Respiratory distress, Tachypnea Breath sounds: Rales, Rhonchi - Cardiovascular Rhythm: Irregularly irregular Heart sounds: Normal auscultation Murmur: No - Abdominal Inspection: Normal Bowel sounds: Normal Tenderness: Nontender - Back Back: Normal - Extremities General upper extremity: Normal inspection General lower extremity: Edema - Lower extremities have pitting edema and chronic skin darkening discoloration from peripheral vascular disease. - Neurological Neuro grossly intact: Yes - Psychological Associated symptoms: Normal affect, Normal mood - Skin Skin Temperature: Warm Skin Moisture: Dry Skin Color: Normal <TIFFANI MARINO - Last Filed: 04/27/20 14:59> - Vital signs Vitals: Temp 98.3 F 04/27/20 11:16 - Respiratory Notes: Tracheostomy inner cannula was pulled out and found to be full of purulent material. It was placed back in until respiratory therapy could bring another inner cannula. (TIFFANI MARINO) Course - Laboratory Result Diagrams: 04/27/20 11:27 04/27/20 11:27 - Diagnostic Test Radiology reviewed: Image reviewed, Reports reviewed - Chest x-ray shows cardiomegaly, moderate pulmonary edema. Superimposed infectious/inflammatory process in both lungs is not entirely excluded. - EKG Interpretation by Me EKG shows normal: [place], Intervals, QRS Complexes, ST-T Waves Rate: Tachycardia - 104 Rhythm: A.Fib [place]/QRS: Right axis deviation - Consults Dr. Contreras Time consulted: 14:27 Consulted provider: will see as inpatient - Request the patient go to [facility], also requests rapid COVID screening. <TIFFANI MARINO - Last Filed: 04/27/20 14:59> - Laboratory Result Diagrams: 04/27/20 11:27 04/27/20 11:27 <KIMBERLY DIEGO - Last Filed: 04/27/20 15:52> - Re-evaluation Re-evalutation: 04/27/20 14:36 Patient's lab work shows that he had a troponin leak and has elevated liver enzymes most likely due to passive liver congestion from his pulmonary edema and right heart failure. All of this is most likely due to his A. fib with RVR, and his medication noncompliance. (TIFFANI MARINO) - Vital Signs Vital signs: Temp Pulse Resp BP Pulse Ox 98.3 F 39 H 99/86 H 94 04/27/20 11:16 04/27/20 15:31 04/27/20 15:31 04/27/20 15:31 - Laboratory Laboratory results interpreted by me: 04/27/20 04/27/20 04/27/20 11:27 11:27 11:27 WBC 11.2 H RBC 4.15 L Hgb 13.4 L MCV 98 H RDW 17.0 H Lymph % (Auto) 5.8 L Absolute Neuts (auto) 9.8 H Seg Neutrophils % 87.4 H Sodium 136.1 L Potassium 5.3 H Carbon Dioxide 17 L BUN 42 H Est GFR (MDRD) Non-Af 59 L Glucose 70 L Total Bilirubin 3.9 H Direct Bilirubin 1.5 H AST 582 H ALT 510 H NT-Pro-B Natriuret Pep 84546 H Digoxin 04/27/20 11:27 WBC RBC Hgb MCV RDW Lymph % (Auto) Absolute Neuts (auto) Seg Neutrophils % Sodium Potassium Carbon Dioxide BUN Est GFR (MDRD) Non-Af Glucose Total Bilirubin Direct Bilirubin AST ALT NT-Pro-B Natriuret Pep Digoxin < 0.40 L Critical Care Note - Critical Care Note Total time excluding time spent on procedures (mins): 35 <TIFFANI MARINO - Last Filed: 04/27/20 14:59> - Critical Care Note Comments: Time spent evaluating patient, history physical, review of prior records. Ordering labs and radiographic studies. Reevaluating the patient. Consultation for admission with his primary care provider. (TIFFANI MARINO) Discharge - Discharge Admitting Provider: [facility] Unit Admitted: [facility] <TIFFANI MARINO - Last Filed: 04/27/20 14:59> - Discharge Admitting Provider: [facility] Unit Admitted: [facility] <KIMBERLY DIEGO - Last Filed: 04/27/20 15:52> - Discharge Clinical Impression: Chronic obstructive pulmonary disease with (acute) exacerbation, Atrial fibril lation with rapid ventricular response, Tracheostomy care, Tracheostomy in place, Cardiomegaly, PAD (peripheral artery disease), Noncompliance with medication regimen, Bilateral airspace disease, Elevated troponin I level, Hepatic congestion Pulmonary edema Qualifiers: Chronicity: acute Qualified Code(s): J81.0 - Acute pulmonary edema Chronic pain Qualifiers: Chronic pain type: chronic pain syndrome Qualified Code(s): G89.4 - Chronic pain syndrome CAD (coronary artery disease) Qualifiers: Coronary Disease-Associated Artery/Lesion type: unspecified vessel or lesion type [place] vs. transplanted heart: [place] heart Associated angina: without angina Qualified Code(s): I25.10 - Atherosclerotic heart disease of [place] coronary artery without angina pectoris Condition: Fair Disposition: ADMITTED INPATIENT Referrals: DEYSI CONTRERAS MD [ACTIVE STAFF] - Follow up as needed I personally performed the services described in the documentation, reviewed and edited the documentation which was dictated to the scribe in my presence, and it accurately records my words and actions.
--- NOTE | 2020-04-28 10:59 | PDOC H&P ---
History of Present Illness Admission Date/PCP: 04/27/20 16:04 DEYSI CONTRERAS MD History of Present Illness: RUKHSANA GRAHAM is a 70 year old male patient known to my practice but very n oncompliant with followup care who presented to the ED via EMS due to worsening difficulty with breathing. He was found on site in atrial fibrillation with RVR. As per ED physician documentation her was started on IV Cardizem en route to the ED with improvement in his heart rate but upon arrival in the ED EMS crew discontinue the Cardizem drip with resurgence of his RVR. His initial ED evaluation was remarkable for his A.fib with RVR, worsening difficulty with breathing and significant clogging of his tracheostomy. His serum digoxin level was found to be subtherapeutic. His chest X ray was suggestive of possible air space disease process with pulmonary edema. His rapid COVID-19 test was reported negative. He was advised hospitalization for further evaluation and management. His morbidities are as listed below. Past Medical History Cardiac Medical History: Reports: Atrial Fibrillation, Congestive Heart Failure - LVEF 20%, Coronary Artery Disease, Myocardial Infarction - 2009 Denies: DVT, Hypertension, Pulmonary Embolism Pulmonary Medical History: Reports: Chronic Obstructive Pulmonary Disease (COPD), Respiratory Failure Denies: Asthma, Bronchitis, Pneumonia, Sleep Apnea Neurological Medical History: Denies: Seizures Endocrine Medical History: Denies: Diabetes Mellitus Type 1, Diabetes Mellitus Type 2 Malignancy Medical History: Reports: Skin Cancer GI Medical History: Denies: Cirrhosis, Hepatitis Musculoskeltal Medical History: Denies: Arthritis, Gout Skin Medical History: Denies: Eczema, Psoriasis Psychiatric Medical History: Denies: Depression Hematology: Denies: Anemia, Bleeding Tendencies Infectious Medical History: Reports: Methicillin-Resistant Staph Aureus Past Surgical History Past Surgical History: Reports: Cardiac Catheterization, Coronary Artery Bypass Graft - 11/2011, Coronary Stent Social History Smoking Status: Current Every Day Smoker Frequency of Alcohol Use: None Hx Recreational Drug Use: No Drugs: None Hx Prescription Drug Abuse: No - Advance Directive Resuscitation Status: Full Code Family History Family History: Hypertension Parental Family History Reviewed: Yes Children Family History Reviewed: Yes Sibling(s) Family History Reviewed.: Yes Medication/Allergy Home Medications: Hydroxyzine Pamoate [Vistaril] 25 mg PO HSP PRN 11/05/19 Omeprazole 20 mg PO Q12 11/05/19 Oxycodone HCl/Acetaminophen [Oxycodone-Acetaminophen 10-325] 1 tab PO Q4HP PRN 11/05/19 Tizanidine HCl 2 mg PO HSP PRN 11/05/19 Apixaban [Eliquis 5 mg Tablet] 5 mg PO Q12 #60 tablet 11/13/19 Diltiazem HCl [Cardizem Cd 120 mg Capsule] 120 mg PO Q12 03/23/20 Budesonide [Pulmicort Neb 0.25 mg/2 ml Ampul] 0.25 mg NEB RTQ12 #180 ampul.neb 03/29/20 Digoxin [Lanoxin 0.25 mg Tablet] 0.125 mg PO DAILY 04/27/20 Allergies/Adverse Reactions: Penicillins Allergy (Severe, Verified 03/24/20 08:00) turned blue as acetaminophen [From Tylenol] Allergy (Verified 03/24/20 08:00) aspirin Allergy (Verified 03/24/20 08:00) Review of Systems Constitutional: PRESENT: weakness. ABSENT: chills, fever(s), headache(s), weight gain, weight loss Eyes: ABSENT: visual disturbances Ears: ABSENT: hearing changes Nose, Mouth, and Throat: ABSENT: headache(s), sore throat Cardiovascular: PRESENT: dyspnea on exertion, palpitations. ABSENT: chest pain, edema, orthropnea Respiratory: PRESENT: cough, dyspnea, sputum. ABSENT: hemoptysis Gastrointestinal: ABSENT: abdominal pain, constipation, diarrhea, hematemesis, hematochezia, nausea, vomiting Genitourinary: ABSENT: dysuria, hematuria Musculoskeletal: PRESENT: muscle weakness. ABSENT: joint swelling Integumentary: ABSENT: rash, wounds Neurological: ABSENT: abnormal gait, abnormal speech, confusion, dizziness, focal weakness, syncope Psychiatric: ABSENT: anxiety, depression, homidical ideation, suicidal ideation Endocrine: ABSENT: cold intolerance, heat intolerance, polydipsia, polyuria Hematologic/Lymphatic: ABSENT: easy bleeding, easy bruising, lymphadenopathy Allergic/Immunologic: ABSENT: seasonal rhinorrhea Physical Exam Vital Signs: Temp Pulse Resp BP Pulse Ox 97.5 F 21 H 100/65 96 04/27/20 16:31 04/27/20 17:01 04/27/20 17:01 04/27/20 17:01 Intake & Output 06/04/27/20 04/28/20 06:59 06:59 06:59 Intake Total 187 Balance 187 Weight 62.5 kg General appearance: PRESENT: severe distress - due to difficulty with breathing Head exam: PRESENT: atraumatic, normocephalic Eye exam: PRESENT: conjunctiva pink, EOMI, PERRLA. ABSENT: scleral icterus Ear exam: PRESENT: normal external ear exam Mouth exam: PRESENT: moist, tongue midline Neck exam: PRESENT: full ROM. ABSENT: carotid bruit, JVD, lymphadenopathy, thyromegaly Respiratory exam: PRESENT: crackles, decreased breath sounds, tachypnea Cardiovascular exam: PRESENT: irregular rhythm, +S1, +S2. ABSENT: diastolic murmur, rubs, systolic murmur Pulses: PRESENT: normal dorsalis pedis pul, +2 pedal pulses bilateral Vascular exam: PRESENT: normal capillary refill GI/Abdominal exam: PRESENT: normal bowel sounds, soft. ABSENT: distended, guarding, mass, organolmegaly, rebound, tenderness Rectal exam: PRESENT: deferred Extremities exam: PRESENT: pedal edema - 2+ to lower legs Neurological exam: PRESENT: alert, awake, oriented to person, oriented to place, oriented to time, oriented to situation, CN II-XII grossly intact. ABSENT: motor sensory deficit Psychiatric exam: PRESENT: appropriate affect, normal mood. ABSENT: homicidal ideation, suicidal ideation Skin exam: PRESENT: dry, intact, warm, other - multiple seborrheic lesions on skin with exophytic lesion on vertex previously diagnosed as skin cancer. ABSENT: cyanosis, rash Results Laboratory Results: 04/27/20 11:27 04/27/20 11:27 04/27/20 04/27/20 04/27/20 11:27 11:27 16:17 WBC 11.2 H RBC 4.15 L Hgb 13.4 L Hct 40.8 MCV 98 H MCH 32.4 MCHC 33.0 RDW 17.0 H Plt Count 179 Seg Neutrophils % 87.4 H Sodium 136.1 L Potassium 5.3 H Chloride 104 Carbon Dioxide 17 L Anion Gap 15 BUN 42 H Creatinine 1.22 Est GFR ( Amer) > 60 Glucose 70 L Calcium 9.5 Total Bilirubin 3.9 H AST 582 H Alkaline Phosphatase 68 Total Protein 7.4 Albumin 3.7 Urine Color STRAW Urine Appearance CLEAR Urine pH 5.0 Ur Specific [place] 1.005 Urine Protein NEGATIVE Urine Glucose (UA) NEGATIVE Urine Ketones NEGATIVE Urine Blood NEGATIVE Urine Nitrite NEGATIVE Ur Leukocyte Esterase NEGATIVE Urine WBC (Auto) 0 04/27/20 04/27/20 04/27/20 11:27 11:27 11:27 Creatine Kinase 73 Troponin I 0.125 NT-Pro-B Natriuret Pep [id number] H Impressions: Chest X-Ray 04/27/20 11:33 IMPRESSION: Moderate pulmonary edema. Superimposed infectious/ inflammatory process in both lungs is not entirely excluded. Assessment & Plan - Diagnosis (1) Chronic obstructive pulmonary disease with (acute) exacerbation Is this a current diagnosis for this admission?: Yes Plan: See admitting attending physician orders for details about care plan. (2) Pulmonary edema Qualifiers: Chronicity: acute Qualified Code(s): J81.0 - Acute pulmonary edema Is this a current diagnosis for this admission?: Yes Plan: See admitting attending physician orders for details about care plan. (3) Pneumonia due to suspected gram-negative bacteria Is this a current diagnosis for this admission?: Yes Plan: See admitting attending physician orders for details about care plan. (4) Tracheostomy in place Is this a current diagnosis for this admission?: Yes Plan: See admitting attending physician orders for details about care plan. (5) Chronic atrial fibrillation with rapid ventricular response Is this a current diagnosis for this admission?: Yes Plan: See admitting attending physician orders for details about care plan. (6) Chronic combined systolic (congestive) and diastolic (congestive) heart failure Is this a current diagnosis for this admission?: Yes Plan: See admitting attending physician orders for details about care plan. (7) HTN (hypertension) Qualifiers: Hypertension type: essential hypertension Qualified Code(s): I10 - Essent ial (primary) hypertension Is this a current diagnosis for this admission?: Yes Plan: See admitting attending physician orders for details about care plan. (8) HLD (hyperlipidemia) Qualifiers: Hyperlipidemia type: pure hypercholesterolemia Qualified Code(s): E78.00 - Pure hypercholesterolemia, unspecified; E78.0 - Pure hypercholesterolemia Is this a current diagnosis for this admission?: Yes Plan: See admitting attending physician orders for details about care plan. (9) History of malignant neoplasm of esophagus Is this a current diagnosis for this admission?: Yes Plan: See admitting attending physician orders for details about care plan. (10) Skin cancer of scalp Is this a current diagnosis for this admission?: Yes Plan: See admitting attending physician orders for details about care plan. - Time Time Spent: 50 to 70 Minutes Medications reviewed and adjusted accordingly: Yes Anticipated discharge: Home with Homehealth Within: Other - Inpatient Certification Based on my medical assessment, after consideration of the patient's comorbidities, presenting symptoms, or acuity I expect that the services needed warrant INPATIENT care.: Yes I certify that my determination is in accordance with my understanding of Medicare's requirements for reasonable and necessary INPATIENT services [42 CFR 412.3e].: Yes Medical Necessity: Significant Comorbidiites Make Outpatient Treatment Too Risky, Need Close Monitoring Due to Risk of Patient Decompensation, Need For Co ntinuous Telemetry Monitoring, Need for Nebulizer Therapy and Monitoring of Response, Need for IV Antibiotics, Risk of Complication if Not Cared For in Hospital, Risk of Diagnosis Which Will Require Inpatient Eval/Care/Monitoring Post Hospital Care: D/C Polisher And Buffer Documentation - Plan Summary Plan Summary: See admitting attending physician orders for details about care plan.
--- NOTE | 2020-04-28 11:06 | PDOC PROGRESS REPORT ---
Subjective Progress Note for:: 04/28/20 Subjective:: Patient reported improvement in his breathing ability. No chest pain. No nausea, vomiting, or abdominal pain. Tolerating oral feeding and able to contribute to his medical condition this morning. He admitted to medication noncompliance and lack of care for his tracheostomy before onset of his current decompensation. Reason For Visit: COPD EXACERBATION S/P TRACHEOSTOMY, CHRONIC A FIB Physical Exam Vital Signs: Temp Pulse Resp BP Pulse Ox 97.8 F 86 20 103/55 L 100 04/28/20 06:48 04/28/20 09:15 04/28/20 09:15 04/28/20 08:27 04/28/20 09:17 Intake & Output 04/27/20 04/28/20 04/29/20 06:59 06:59 06:59 Intake Total 384 Output Total 975 Balance -591 Weight 62.5 kg General appearance: PRESENT: mild distress - on supplemental oxygen via nasal cannula Head exam: PRESENT: atraumatic, normocephalic Eye exam: PRESENT: conjunctiva pink, EOMI, PERRLA. ABSENT: scleral icterus Ear exam: PRESENT: normal external ear exam Mouth exam: PRESENT: moist, tongue midline Neck exam: PRESENT: full ROM Respiratory exam: PRESENT: decreased breath sounds, rhonchi Cardiovascular exam: PRESENT: irregular rhythm, +S1, +S2. ABSENT: diastolic murmur, rubs, systolic murmur Vascular exam: ABSENT: pallor GI/Abdominal exam: PRESENT: normal bowel sounds, soft. ABSENT: distended, guarding, mass, organolmegaly, rebound, tenderness Extremities exam: PRESENT: pedal edema Neurological exam: PRESENT: alert, awake, oriented to person, oriented to place, oriented to time, oriented to situation, CN II-XII grossly intact. ABSENT: motor sensory deficit Psychiatric exam: PRESENT: appropriate affect, normal mood. ABSENT: homicidal ideation, suicidal ideation Skin exam: PRESENT: dry, intact, rash - multiple seborrheic lesions, warm, other - exophytic growth on his head.. ABSENT: cyanosis Results Laboratory Results: 04/28/20 06:50 04/28/20 06:50 04/27/20 04/27/20 04/27/20 11:27 11:27 16:17 WBC 11.2 H RBC 4.15 L Hgb 13.4 L Hct 40.8 MCV 98 H MCH 32.4 MCHC 33.0 RDW 17.0 H Plt Count 179 Seg Neutrophils % 87.4 H Sodium 136.1 L Potassium 5.3 H Chloride 104 Carbon Dioxide 17 L Anion Gap 15 BUN 42 H Creatinine 1.22 Est GFR ( Amer) > 60 Glucose 70 L Calcium 9.5 Total Bilirubin 3.9 H AST 582 H Alkaline Phosphatase 68 Total Protein 7.4 Albumin 3.7 Urine Color STRAW Urine Appearance CLEAR Urine pH 5.0 Ur Specific [place] 1.005 Urine Protein NEGATIVE Urine Glucose (UA) NEGATIVE Urine Ketones NEGATIVE Urine Blood NEGATIVE Urine Nitrite NEGATIVE Ur Leukocyte Esterase NEGATIVE Urine WBC (Auto) 0 04/28/20 04/28/20 06:50 06:50 WBC 9.5 RBC 3.67 L Hgb 12.0 L Hct 35.5 L MCV 97 MCH 32.6 MCHC 33.8 RDW 16.8 H Plt Count 148 L Seg Neutrophils % Not Reportable Sodium 134.3 L Potassium 3.3 L D Chloride 101 Carbon Dioxide 27 D Anion Gap 6 BUN 43 H Creatinine 1.07 Est GFR ( Amer) > 60 Glucose 110 Calcium 8.5 Total Bilirubin 2.8 H AST 580 H Alkaline Phosphatase 55 Total Protein 6.0 L Albumin 2.6 L Urine Color Urine Appearance Urine pH Ur Specific [place] Urine Protein Urine Glucose (UA) Urine Ketones Urine Blood Urine Nitrite Ur Leukocyte Esterase Urine WBC (Auto) 04/27/20 04/27/20 04/27/20 11:27 11:27 11:27 Creatine Kinase 73 Troponin I 0.125 NT-Pro-B Natriuret Pep [id number] H Impressions: Chest X-Ray 04/27/20 11:33 IMPRESSION: Moderate pulmonary edema. Superimposed infectious/ inflammatory process in both lungs is not entirely excluded. Assessment & Plan - Diagnosis (1) Chronic obstructive pulmonary disease with (acute) exacerbation Is this a current diagnosis for this admission?: Yes (2) Pulmonary edema Qualifiers: Chronicity: acute Qualified Code(s): J81.0 - Acute pulmonary edema Is this a current diagnosis for this admission?: Yes (3) Pneumonia due to suspected gram-negative bacteria Is this a current diagnosis for this admission?: Yes (4) Tracheostomy in place Is this a current diagnosis for this admission?: Yes (5) Chronic atrial fibrillation with rapid ventricular response Is this a current diagnosis for this admission?: Yes (6) Chronic combined systolic (congestive) and diastolic (congestive) heart failure Is this a current diagnosis for this admission?: Yes (7) HTN (hypertension) Qualifiers: Hypertension type: essential hypertension Qualified Code(s): I10 - Essential (primary) hypertension Is this a current diagnosis for this admission?: Yes (8) HLD (hyperlipidemia) Qualifiers: Hyperlipidemia type: pure hypercholesterolemia Qualified Code(s): E78.00 - Pure hypercholesterolemia, unspecified; E78.0 - Pure hypercholesterolemia Is this a current diagnosis for this admission?: Yes (9) History of malignant neoplasm of esophagus Is this a current diagnosis for this admission?: Yes (10) Skin cancer of scalp Is this a current diagnosis for this admission?: Yes - Time Time Spent with patient: 25-34 minutes Level of Care: IMCU Medications reviewed and adjusted accordingly: Yes Anticipated discharge: Home with Homehealth Within: Other - Inpatient Certification Based on my medical assessment, after consideration of the patient's comorbidities, presenting symptoms, or acuity I expect that the services needed warrant INPATIENT care.: Yes I certify that my determination is in accordance with my understanding of Medicare's requirements for reasonable and necessary INPATIENT services [42 CFR 412.3e].: Yes Medical Necessity: Significant Comorbidiites Make Outpatient Treatment Too Risky, Need Close Monitoring Due to Risk of Patient Decompensation, Need For Continuous Telemetry Monitoring, Need for Nebulizer Therapy and Monitoring of Response, Need for IV Antibiotics, Risk of Complication if Not Cared For in Hospital, Risk of Diagnosis Which Will Require Inpatient Eval/Care/Monitoring Post Hospital Care: D/C Dirt Shoveler Documentation - Plan Summary Plan Summary: Restart on oral Cardizem CD 120 mg po q12 hours. D/C IV Cardizem drip 1 hour after administration of oral Cardizem. Continue IV Levofloxacin coverage. Maintain on all other current medication management. Follow up on pending labs and culture findings.
[2020-04-28] MEDS: LEVOFLOXACIN 500 MG/D5W RTU 500 MG/100 ML RTUPB IV SCH (18:08)
[2020-04-29] MEDS: BENZONATATE 100 MG CAPSULE PO SCH ×3 (05:58→22:59)
[2020-04-29] MEDS: PANTOPRAZOLE SODIUM 40 MG TABLET.DR PO SCH (05:58)
[2020-04-29] MEDS: APIXABAN 5 MG TABLET PO SCH ×2 (10:30→22:58)
[2020-04-29] MEDS: DIGOXIN 0.125 MG TABLET PO SCH (10:30)
[2020-04-29] MEDS: DILTIAZEM HCL 120 MG CAP.SR.24H PO SCH ×2 (10:30→22:58)
--- NOTE | 2020-04-29 16:06 | PDOC PROGRESS REPORT ---
Subjective Progress Note for:: 04/29/20 Subjective:: Patient breathing is better but continue to need supplemental oxygen via trach tent. No reported chest pain. No fever or chills. No nausea, vomiting, or abdominal pain. Tolerating oral feeding, no diarrhea. Reason For Visit: COPD EXACERBATION S/P TRACHEOSTOMY, CHRONIC A FIB Physical Exam Vital Signs: Temp Pulse Resp BP Pulse Ox 97.8 F 92 22 H 96/55 L 96 04/29/20 11:41 04/29/20 14:00 04/29/20 11:41 04/29/20 11:41 04/29/20 12:00 Intake & Output 04/28/20 04/29/20 04/30/20 06:59 06:59 06:59 Intake Total 384 1945 100 Output Total 975 750 250 Balance -591 1195 -150 Weight 62.5 kg 61.1 kg Physical Exam: General appearance: PRESENT: mild distress - on supplemental oxygen via nasal cannula Head exam: PRESENT: atraumatic, normocephalic Eye exam: PRESENT: conjunctiva pink. ABSENT: pallor, scleral icterus Mouth exam: PRESENT: moist, tongue midline Respiratory exam: PRESENT: decreased breath sounds, rhonchi Cardiovascular exam: PRESENT: irregular rhythm, +S1, +S2. ABSENT: diastolic murmur, rubs, systolic murmur GI/Abdominal exam: PRESENT: normal bowel sounds, soft. ABSENT: distended, guarding, mass, organomegaly, rebound, tenderness Extremities exam: PRESENT: 1+ pedal edema Neurological exam: PRESENT: alert, awake, oriented to person, oriented to place, oriented to time, oriented to situation, CN II-XII grossly intact. ABSENT: motor sensory deficit Psychiatric exam: PRESENT: appropriate affect, normal mood. ABSENT: homicidal ideation, suicidal ideation Skin exam: PRESENT: dry, intact, rash - multiple seborrheic lesions, warm, other - exophytic growth on his head.. ABSENT: cyanosis Results Laboratory Results: 04/28/20 06:50 04/28/20 06:50 04/28/20 14:15 Tracheal Aspirate Gram Stain - Final 04/27/20 04/27/20 04/27/20 11:27 11:27 11:27 Creatine Kinase 73 Troponin I 0.125 NT-Pro-B Natriuret Pep [id number] H Impressions: Chest X-Ray 04/27/20 11:33 IMPRESSION: Moderate pulmonary edema. Superimposed infectious/ inflammatory process in both lungs is not entirely excluded. Assessment & Plan - Diagnosis (1) Chronic obstructive pulmonary disease with (acute) exacerbation Is this a current diagnosis for this admission?: Yes (2) Pulmonary edema Qualifiers: Chronicity: acute Qualified Code(s): J81.0 - Acute pulmonary edema Is this a current diagnosis for this admission?: Yes (3) Pneumonia due to suspected gram-negative bacteria Is this a current diagnosis for this admission?: Yes (4) Tracheostomy in place Is this a current diagnosis for this admission?: Yes (5) Chronic atrial fibrillation with rapid ventricular response Is this a current diagnosis for this admission?: Yes (6) Chronic combined systolic (congestive) and diastolic (congestive) heart failure Is this a current diagnosis for this admission?: Yes (7) HTN (hypertension) Qualifiers: Hypertension type: essential hypertension Qualified Code(s): I10 - Essential (primary) hypertension Is this a current diagnosis for this admission?: Yes (8) HLD (hyperlipidemia) Qualifiers: Hyperlipidemia type: pure hypercholesterolemia Qualified Code(s): E78.00 - Pure hypercholesterolemia, unspecified; E78.0 - Pure hypercholesterolemia Is this a current diagnosis for this admission?: Yes (9) History of malignant neoplasm of esophagus Is this a current diagnosis for this admission?: Yes (10) Skin cancer of scalp Is this a current diagnosis for this admission?: Yes - Time Time Spent with patient: 25-34 minutes Level of Care: IMCU Medications reviewed and adjusted accordingly: Yes Anticipated discharge: Home with Homehealth Within: Other - Inpatient Certification Based on my medical assessment, after consideration of the patient's comorbidities, presenting symptoms, or acuity I expect that the services needed warrant INPATIENT care.: Yes I certify that my determination is in accordance with my understanding of Medicare's requirements for reasonable and necessary INPATIENT services [42 CFR 412.3e].: Yes Medical Necessity: Significant Comorbidiites Make Outpatient Treatment Too Risky, Need Close Monitoring Due to Risk of Patient Decompensation, Need For Continuous Telemetry Monitoring, Need for IV Antibiotics, Risk of Complication if Not Cared For in Hospital, Risk of Diagnosis Which Will Require Inpatient Eval/Care/Monitoring Post Hospital Care: D/C Career Development Specialist Documentation - Plan Summary Plan Summary: Continue current medication management. Discussed possible engagement with [facility] services upon discharge but patient has not been very receptive due to his living environment and home condition.
[2020-04-29] MEDS: LEVOFLOXACIN 500 MG/D5W RTU 500 MG/100 ML RTUPB IV SCH (17:55)
[2020-04-30] MEDS: PANTOPRAZOLE SODIUM 40 MG TABLET.DR PO SCH (05:32)
[2020-04-30] MEDS: BENZONATATE 100 MG CAPSULE PO SCH ×3 (05:32→22:18)
[2020-04-30] MEDS: DILTIAZEM HCL 120 MG CAP.SR.24H PO SCH ×2 (09:55→22:17)
[2020-04-30] MEDS: APIXABAN 5 MG TABLET PO SCH ×2 (09:56→22:18)
[2020-04-30] MEDS: DIGOXIN 0.125 MG TABLET PO SCH (09:56)
[2020-04-30] MEDS: LEVOFLOXACIN 500 MG/D5W RTU 500 MG/100 ML RTUPB IV SCH (18:19)
[2020-04-30 18:23] LABS: ANION GAP 8 (5-19); BLOOD UREA NITROGEN 18 mg/dL (7-20); CALCIUM 8.5 mg/dL (8.4-10.2); CARBON DIOXIDE 24 mmol/L (22-30); CHLORIDE 104 mmol/L (98-107); GLUCOSE 138 mg/dL (75-110)
[2020-05-01] MEDS: BENZONATATE 100 MG CAPSULE PO SCH ×3 (05:36→22:36)
[2020-05-01] MEDS: PANTOPRAZOLE SODIUM 40 MG TABLET.DR PO SCH (05:36)
[2020-05-01] MEDS: APIXABAN 5 MG TABLET PO SCH ×2 (09:59→22:36)
[2020-05-01] MEDS: DIGOXIN 0.125 MG TABLET PO SCH (10:00)
[2020-05-01] MEDS: DILTIAZEM HCL 120 MG CAP.SR.24H PO SCH ×2 (10:00→22:36)
[2020-05-01] MEDS: LEVOFLOXACIN 500 MG/D5W RTU 500 MG/100 ML RTUPB IV SCH (17:36)
--- NOTE | 2020-05-01 19:47 | PDOC PROGRESS REPORT ---
Subjective Progress Note for:: 04/30/20 Subjective:: Patient breathing is better but continue to need supplemental oxygen via trach tent. No reported chest pain. No fever or chills. No more nausea, vomiting, or abdominal pain. Reason For Visit: COPD EXACERBATION S/P TRACHEOSTOMY, CHRONIC A FIB Physical Exam Vital Signs: Temp Pulse Resp BP Pulse Ox 97.4 F 105 H 21 H 108/77 99 04/30/20 16:24 04/30/20 17:36 04/30/20 16:24 04/30/20 16:24 04/30/20 16:24 Intake & Output 04/29/20 04/30/20 05/01/20 06:59 06:59 06:59 Intake Total 1945 1294 1090 Output Total 750 1725 2075 Balance 1195 431 -987 Weight 61.1 kg 61 kg Physical Exam: General appearance: PRESENT: mild distress - on supplemental oxygen via nasal cannula Head exam: PRESENT: atraumatic, normocephalic Eye exam: PRESENT: conjunctiva pink. ABSENT: pallor, scleral icterus Mouth exam: PRESENT: moist, tongue midline Respiratory exam: PRESENT: decreased breath sounds, rhonchi Cardiovascular exam: PRESENT: irregular rhythm, +S1, +S2. ABSENT: diastolic murmur, rubs, systolic murmur GI/Abdominal exam: PRESENT: normal bowel sounds, soft. ABSENT: distended, guarding, mass, organomegaly, rebound, tenderness Extremities exam: PRESENT: 1+ pedal edema Neurological exam: PRESENT: alert, awake, oriented to person, oriented to place, oriented to time, oriented to situation, CN II-XII grossly intact. ABSENT: motor sensory deficit Psychiatric exam: PRESENT: appropriate affect, normal mood. ABSENT: homicidal ideation, suicidal ideation Skin exam: PRESENT: dry, intact, rash - multiple seborrheic lesions, warm, other - exophytic growth on his head.. ABSENT: cyanosis Results Laboratory Results: 04/28/20 06:50 04/30/20 17:58 04/30/20 17:58 Sodium 135.7 L Potassium 4.0 Chloride 104 Carbon Dioxide 24 Anion Gap 8 BUN 18 Creatinine 0.72 Est GFR ( Amer) > 60 Glucose 138 H Calcium 8.5 Magnesium 1.9 04/28/20 14:15 Tracheal Aspirate Gram Stain - Final 04/27/20 04/27/20 04/27/20 11:27 11:27 11:27 Creatine Kinase 73 Troponin I 0.125 NT-Pro-B Natriuret Pep [id number] H Impressions: Chest X-Ray 04/27/20 11:33 IMPRESSION: Moderate pulmonary edema. Superimposed infectious/ inflammatory process in both lungs is not entirely excluded. Assessment & Plan - Diagnosis (1) Chronic obstructive pulmonary disease with (acute) exacerbation Is this a current diagnosis for this admission?: Yes (2) Pulmonary edema Qualifiers: Chronicity: acute Qualified Code(s): J81.0 - Acute pulmonary edema Is this a current diagnosis for this admission?: Yes (3) Pneumonia due to suspected gram-negative bacteria Is this a current diagnosis for this admission?: Yes (4) Tracheostomy in place Is this a current diagnosis for this admission?: Yes (5) Chronic atrial fibrillation with rapid ventricular response Is this a current diagnosis for this admission?: Yes (6) Chronic combined systolic (congestive) and diastolic (congestive) heart failure Is this a current diagnosis for this admission?: Yes (7) HTN (hypertension) Qualifiers: Hypertension type: essential hypertension Qualified Code(s): I10 - Essential (primary) hypertension Is this a current diagnosis for this admission?: Yes (8) HLD (hyperlipidemia) Qualifiers: Hyperlipidemia type: pure hypercholesterolemia Qualified Code(s): E78.00 - Pure hypercholesterolemia, unspecified; E78.0 - Pure hypercholesterolemia Is this a current diagnosis for this admission?: Yes (9) History of malignant neoplasm of esophagus Is this a current diagnosis for this admission?: Yes (10) Skin cancer of scalp Is this a current diagnosis for this admission?: Yes - Time Time Spent with patient: 25-34 minutes Level of Care: IMCU Medications reviewed and adjusted accordingly: Yes Anticipated discharge: Home with Homehealth Within: Other - Inpatient Certification Based on my medical assessment, after consideration of the patient's comorbidities, presenting symptoms, or acuity I expect that the services needed warrant INPATIENT care.: Yes I certify that my determination is in accordance with my understanding of Medicare's requirements for reasonable and necessary INPATIENT services [42 CFR 412.3e].: Yes Medical Necessity: Significant Comorbidiites Make Outpatient Treatment Too Risky, Need Close Monitoring Due to Risk of Patient Decompensation, Need For Continuous Telemetry Monitoring, Risk of Complication if Not Cared For in Hospit al, Risk of Diagnosis Which Will Require Inpatient Eval/Care/Monitoring Post Hospital 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
--- NOTE | 2020-05-01 19:49 | PDOC PROGRESS REPORT ---
Subjective Progress Note for:: 05/01/20 Subjective:: Patient breathing is better and no chest pain. No fever or chills. No nausea, vomiting, or abdominal pain. Reason For Visit: COPD EXACERBATION S/P TRACHEOSTOMY, CHRONIC A FIB Physical Exam Vital Signs: Temp Pulse Resp BP Pulse Ox 97.7 F 70 22 H 98/69 L 99 05/01/20 16:57 05/01/20 19:00 05/01/20 16:57 05/01/20 16:57 05/01/20 16:57 Intake & Output 04/30/20 05/01/20 05/02/20 06:59 06:59 06:59 Intake Total 1294 1850 1290 Output Total 1725 3450 1425 Balance -431 -1600 -135 Weight 61 kg 56 kg Physical Exam: General appearance: PRESENT: mild distress - on supplemental oxygen via nasal cannula Head exam: PRESENT: atraumatic, normocephalic Eye exam: PRESENT: conjunctiva pink. ABSENT: pallor, scleral icterus Mouth exam: PRESENT: moist, tongue midline Respiratory exam: PRESENT: decreased breath sounds, rhonchi Cardiovascular exam: PRESENT: irregular rhythm, +S1, +S2. ABSENT: diastolic murmur, rubs, systolic murmur GI/Abdominal exam: PRESENT: normal bowel sounds, soft. ABSENT: distended, guarding, mass, organomegaly, rebound, tenderness Extremities exam: PRESENT: 1+ pedal edema Neurological exam: PRESENT: alert, awake, oriented to person, oriented to place, oriented to time, oriented to situation, CN II-XII grossly intact. ABSENT: motor sensory deficit Psychiatric exam: PRESENT: appropriate affect, normal mood. ABSENT: homicidal ideation, suicidal ideation Skin exam: PRESENT: dry, intact, rash - multiple seborrheic lesions, warm, other - exophytic growth on his head.. ABSENT: cyanosis Results Laboratory Results: 04/28/20 06:50 04/30/20 17:58 04/28/20 14:15 Tracheal Aspirate Gram Stain - Final 04/28/20 14:15 Tracheal Aspirate Sputum Culture - Final Serratia Marcescens Corynebacterium Striatum Greatly Reduced Normal Gris 04/27/20 04/27/20 04/27/20 11:27 11:27 11:27 Creatine Kinase 73 Troponin I 0.125 NT-Pro-B Natriuret Pep [id number] H Impressions: Chest X-Ray 04/27/20 11:33 IMPRESSION: Moderate pulmonary edema. Superimposed infectious/ inflammatory process in both lungs is not entirely excluded. Assessment & Plan - Diagnosis (1) Chronic obstructive pulmonary disease with (acute) exacerbation Is this a current diagnosis for this admission?: Yes (2) Pulmonary edema Qualifiers: Chronicity: acute Qualified Code(s): J81.0 - Acute pulmonary edema Is this a current diagnosis for this admission?: Yes (3) Pneumonia due to suspected gram-negative bacteria Is this a current diagnosis for this admission?: Yes (4) Tracheostomy in place Is this a current diagnosis for this admission?: Yes (5) Chronic atrial fibrillation with rapid ventricular response Is this a current diagnosis for this admission?: Yes (6) Chronic combined systolic (congestive) and diastolic (congestive) heart failure Is this a current diagnosis for this admission?: Yes (7) HTN (hypertension) Qualifiers: Hypertension type: essential hypertension Qualified Code(s): I10 - Essential (primary) hypertension Is this a current diagnosis for this admission?: Yes (8) HLD (hyperlipidemia) Qualifiers: Hyperlipidemia type: pure hypercholesterolemia Qualified Code(s): E78.00 - Pure hypercholesterolemia, unspecified; E78.0 - Pure hypercholesterolemia Is this a current diagnosis for this admission?: Yes (9) History of malignant neoplasm of esophagus Is this a current diagnosis for this admission?: Yes (10) Skin cancer of scalp Is this a current diagnosis for this admission?: Yes - Time Time Spent with patient: 25-34 minutes Level of Care: IMCU Medications reviewed and adjusted accordingly: Yes Anticipated discharge: Home with Homehealth Within: Other - Inpatient Certification Based on my medical assessment, after consideration of the patient's comorbidities, presenting symptoms, or acuity I expect that the services needed warrant INPATIENT care.: Yes I certify that my determination is in accordance with my understanding of Medicare's requirements for reasonable and necessary INPATIENT services [42 CFR 412.3e].: Yes Medical Necessity: Significant Comorbidiites Make Outpatient Treatment Too Risky, Need Close Monitoring Due to Risk of Patient Decompensation, Need For Continuous Telemetry Monitoring, Need for IV Antibiotics, Risk of Complication if Not Cared For in Hospital, Risk of Diagnosis Which Will Require Inpatient Eval/Care/Monitoring Post Hospital Care: D/C Red 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 Start on Levofloxacin 500 mg po daily. Maintain on all other current medication management.
[2020-05-02] MEDS: BENZONATATE 100 MG CAPSULE PO SCH (05:01)
[2020-05-02] MEDS: PANTOPRAZOLE SODIUM 40 MG TABLET.DR PO SCH (05:01)
[2020-05-02] MEDS ORDERED: LEVOFLOXACIN 500 MG TABLET PO SCH (10:00)
[2020-05-02] MEDS: DILTIAZEM HCL 120 MG CAP.SR.24H PO SCH (10:17)
[2020-05-02] MEDS: APIXABAN 5 MG TABLET PO SCH (10:17)
[2020-05-02] MEDS: DIGOXIN 0.125 MG TABLET PO SCH (10:18)
[2020-05-02 12:41] VITALS: BP 103/64
--- NOTE | 2020-05-02 14:46 | PDOC DISCHARGE SUMMARY ---
Impression - Admit/DC Date/PCP Admission Date/Primary Care Provider: 04/27/20 16:04 MARCOS WILSON MD Discharge Date: 05/02/20 - Discharge Diagnosis (1) Chronic obstructive pulmonary disease with (acute) exacerbation Is this a current diagnosis for this admission?: Yes (2) Pulmonary edema Is this a current diagnosis for this admission?: Yes (3) Pneumonia due to suspected gram-negative bacteria Is this a current diagnosis for this admission?: Yes (4) Tracheostomy in place Is this a current diagnosis for this admission?: Yes (5) Chronic atrial fibrillation with rapid ventricular response Is this a current diagnosis for this admission?: Yes (6) Chronic combined systolic (congestive) and diastolic (congestive) heart failure Is this a current diagnosis for this admission?: Yes (7) HTN (hypertension) Is this a current diagnosis for this admission?: Yes (8) HLD (hyperlipidemia) Is this a current diagnosis for this admission?: Yes (9) History of malignant neoplasm of esophagus Is this a current diagnosis for this admission?: Yes (10) Skin cancer of scalp Is this a current diagnosis for this admission?: Yes - Assessment Summary: Patient was admitted for chronic atrial fibrillation with RVR and difficulty with breathing. Patient is very noncompliant with medical care follow up and medication administration. His tracheostomy was almost clogged off at presentation and aspirate culture grew multiple organism sensitive to Levofloxacin. He will be discharge home on five more days on Levofloxacin therapy. I did emphasized medication administration compliance and follow up with me in the office as directed upon discharge. - Additional Information Resuscitation Status: Full Code Discharge Diet: As Tolerated Discharge Activity: Activity As Tolerated Referrals: DEYSI CONTRERAS MD [ACTIVE STAFF] - 05/10/20 10:00 am Prescriptions: Diltiazem HCl [Cardizem Cd 120 mg Capsule] 120 mg PO Q12 #60 Ipratropium/Albuterol Sulfate [Duoneb 3 ml Ampul] 3 ml NEB Q4HP PRN #120 vial.neb PRN Reason: Apixaban [Eliquis 5 mg Tablet] 5 mg PO Q12 #60 tablet Digoxin [Lanoxin 0.25 mg Tablet] 0.125 mg PO DAILY #30 Levofloxacin [Levaquin 500 mg Tablet] 500 mg PO DAILY #5 tablet Budesonide [Pulmicort Neb 0.25 mg/2 ml Ampul] 0.25 mg NEB RTQ12 #180 ampul.neb Home Medications: Hydroxyzine Pamoate [Vistaril] 25 mg PO HSP PRN 11/05/19 Omeprazole 20 mg PO Q12 11/05/19 Oxycodone HCl/Acetaminophen [Oxycodone-Acetaminophen 10-325] 1 tab PO Q4HP PRN 11/05/19 Tizanidine HCl 2 mg PO HSP PRN 11/05/19 Apixaban [Eliquis 5 mg Tablet] 5 mg PO Q12 #60 tablet 05/02/20 Budesonide [Pulmicort Neb 0.25 mg/2 ml Ampul] 0.25 mg NEB RTQ12 #180 ampul.neb 05/02/20 Digoxin [Lanoxin 0.25 mg Tablet] 0.125 mg PO DAILY #30 05/02/20 Diltiazem HCl [Cardizem Cd 120 mg Capsule] 120 mg PO Q12 #60 05/02/20 Ipratropium/Albuterol Sulfate [Duoneb 3 ml Ampul] 3 ml NEB Q4HP PRN #120 vial.neb 05/02/20 Levofloxacin [Levaquin 500 mg Tablet] 500 mg PO DAILY #5 tablet 05/02/20 History of Present Illiness History of Present Illness: RUKHSANA GRAHAM is a 70 year old male patient known to my practice but very noncompliant with followup care who presented to the ED via EMS due to worsening difficulty with breathing. He was found on site in atrial fibrillation with RVR. As per ED physician documentation her was started on IV Cardizem en route to the ED with improvement in his heart rate but upon arrival in the ED EMS crew discontinue the Cardizem drip with resurgence of his RVR. His initial ED evaluation was remarkable for his A.fib with RVR, worsening difficulty with breathing and significant clogging of his tracheostomy. His serum digoxin level was found to be sub-therapeutic. His chest X ray was suggestive of possible air space disease process with pulmonary edema. His rapid COVID-19 test was reported negative. He was advised hospitalization for further evaluation and management. His morbidities are as listed below. Hospital Course Hospital Course: Patient was admitted for chronic atrial fibrillation with RVR and difficulty with breathing. Patient is very noncompliant with medical care follow up and medication administration. His tracheostomy was almost clogged off at presentation and aspirate culture grew multiple organism sensitive to Levofloxacin. He will be discharge home on five more days on Levofloxacin therapy. I did emphasized medication administration compliance and follow up with me in the office as directed upon discharge Physical Exam Vital Signs: Temp Pulse Resp BP Pulse Ox 97.6 F 105 H 21 H 116/74 98 05/02/20 07:25 05/02/20 07:25 05/02/20 07:25 05/02/20 07:25 05/02/20 08:01 Intake & Output 05/01/20 05/02/20 05/03/20 06:59 06:59 06:59 Intake Total 1850 2040 Output Total 3450 3075 Balance -1600 -1035 Weight 56 kg 56.4 kg General appearance: PRESENT: mild distress - on supplemental oxygen via nasal cannula Head exam: PRESENT: atraumatic, normocephalic Eye exam: PRESENT: conjunctiva pink. ABSENT: pallor, scleral icterus Mouth exam: PRESENT: moist, tongue midline Respiratory exam: PRESENT: decreased breath sounds, rhonchi Cardiovascular exam: PRESENT: irregular rhythm, +S1, +S2. ABSENT: diastolic murmur, rubs, systolic murmur GI/Abdominal exam: PRESENT: normal bowel sounds, soft. ABSENT: distended, guarding, mass, organomegaly, rebound, tenderness Extremities exam: PRESENT: 1+ pedal edema Neurological exam: PRESENT: alert, awake, oriented to person, oriented to place, oriented to time, oriented to situation, CN II-XII grossly intact. ABSENT: motor sensory deficit Psychiatric exam: PRESENT: appropriate affect, normal mood. ABSENT: homicidal ideation, suicidal ideation Skin exam: PRESENT: dry, intact, rash - multiple seborrheic lesions, warm, other - exophytic growth on his head.. ABSENT: cyanosis Results Laboratory Results: WBC 9.5 10^3/uL (4.0-10.5) 04/28/20 06:50 RBC 3.67 10^6/uL (4.35-5.55) L 04/28/20 06:50 Hgb 12.0 g/dL (13.5-17.0) L 04/28/20 06:50 Hct 35.5 % (37.9-51.0) L 04/28/20 06:50 MCV 97 fl (80-97) 04/28/20 06:50 MCH 32.6 pg (27.0-33.4) 04/28/20 06:50 MCHC 33.8 g/dL (32.0-36.0) 04/28/20 06:50 RDW 16.8 % (11.5-14.0) H 04/28/20 06:50 Plt Count 148 10^3/uL (150-450) L 04/28/20 06:50 Lymph % (Auto) Not Reportable 04/28/20 06:50 Barron % (Auto) Not Reportable 04/28/20 06:50 Eos % (Auto) Not Reportable 04/28/20 06:50 Baso % (Auto) Not Reportable 04/28/20 06:50 Absolute Neuts (auto) Not Reportable 04/28/20 06:50 Absolute Lymphs (auto) Not Reportable 04/28/20 06:50 Absolute Monos (auto) Not Reportable 04/28/20 06:50 Absolute Eos (auto) Not Reportable 04/28/20 06:50 Absolute Basos (auto) Not Reportable 04/28/20 06:50 Total Counted 100 04/28/20 06:50 Seg Neutrophils % Not Reportable 04/28/20 06:50 Seg Neuts % (Manual) 94 % (42-78) H 04/28/20 06:50 Lymphocytes % (Manual) 3 % (13-45) L 04/28/20 06:50 Monocytes % (Manual) 3 % (3-13) 04/28/20 06:50 Eosinophils % (Manual) 0 % (0-6) 04/28/20 06:50 Basophils % (Manual) 0 % (0-2) 04/28/20 06:50 Abs Neuts (Manual) 8.9 10^3/uL (1.7-8.2) H 04/28/20 06:50 Abs Lymphs (Manual) 0.3 10^3/uL (0.5-4.7) L 04/28/20 06:50 Abs Monocytes (Manual) 0.3 10^3/uL (0.1-1.4) 04/28/20 06:50 Absolute Eos (Manual) 0.0 10^3/uL (0.0-0.6) 04/28/20 06:50 Abs Basophils (Manual) 0.0 10^3/uL (0.0-0.2) 04/28/20 06:50 Platelet Comment DECREASED 04/28/20 06:50 Polychromasia 1+ 04/28/20 06:50 Hypochromasia 1+ 04/28/20 06:50 Poikilocytosis 1+ 04/28/20 06:50 Anisocytosis 1+ 04/28/20 06:50 Ovalocytes 1+ 04/28/20 06:50 Sodium 135.7 mmol/L (137-145) L 04/30/20 17:58 Potassium 4.0 mmol/L (3.6-5.0) 04/30/20 17:58 Chloride 104 mmol/L (98-107) 04/30/20 17:58 Carbon Dioxide 24 mmol/L (22-30) 04/30/20 17:58 Anion Gap 8 (5-19) 04/30/20 17:58 BUN 18 mg/dL (7-20) 04/30/20 17:58 Creatinine 0.72 mg/dL (0.52-1.25) 04/30/20 17:58 Est GFR ( Amer) > 60 (>60) 04/30/20 17:58 Est GFR (MDRD) Non-Af > 60 (>60) 04/30/20 17:58 Glucose 138 mg/dL (75-110) H 04/30/20 17:58 Calcium 8.5 mg/dL (8.4-10.2) 04/30/20 17:58 Magnesium 1.9 mg/dL (1.6-2.3) 04/30/20 17:58 Total Bilirubin 2.8 mg/dL (0.2-1.3) H 04/28/20 06:50 Direct Bilirubin 1.1 mg/dL (0.0-0.4) H 04/28/20 06:50 Neonat Total Bilirubin Not Reportable 04/28/20 06:50 Neonat Direct Bilirubin Not Reportable 04/28/20 06:50 Neonat Indirect Bili Not Reportable 04/28/20 06:50 AST 580 U/L (17-59) H 04/28/20 06:50 ALT 622 U/L (<50) H 04/28/20 06:50 Alkaline Phosphatase 55 U/L (38-126) 04/28/20 06:50 Creatine Kinase 73 U/L (55-170) 04/27/20 11:27 Troponin I 0.125 ng/mL 04/27/20 11:27 NT-Pro-B Natriuret Pep 41117 pg/mL (<125) H 04/27/20 11:27 Total Protein 6.0 g/dL (6.3-8.2) L 04/28/20 06:50 Albumin 2.6 g/dL (3.5-5.0) L 04/28/20 06:50 Urine Color STRAW 04/27/20 16:17 Urine Appearance CLEAR 04/27/20 16:17 Urine pH 5.0 (5.0-9.0) 04/27/20 16:17 Ur Specific [place] 1.005 04/27/20 16:17 Urine Protein NEGATIVE mg/dL (NEGATIVE) 04/27/20 16:17 Urine Glucose (UA) NEGATIVE mg/dL (NEGATIVE) 04/27/20 16:17 Urine Ketones NEGATIVE mg/dL (NEGATIVE) 04/27/20 16:17 Urine Blood NEGATIVE (NEGATIVE) 04/27/20 16:17 Urine Nitrite NEGATIVE (NEGATIVE) 04/27/20 16:17 Urine Bilirubin NEGATIVE (NEGATIVE) 04/27/20 16:17 Urine Urobilinogen NEGATIVE mg/dL (<2.0) 04/27/20 16:17 Ur Leukocyte Esterase NEGATIVE (NEGATIVE) 04/27/20 16:17 Urine WBC (Auto) 0 /HPF 04/27/20 16:17 U Hyaline Cast (Auto) 3 /LPF 04/27/20 16:17 Urine Mucus (Auto) RARE /LPF 04/27/20 16:17 Urine Ascorbic Acid NEGATIVE (NEGATIVE) 04/27/20 16:17 Digoxin < 0.40 ng/mL (0.8-2.0) L 04/27/20 11:27 SARS-CoV-2 (PCR) NEGATIVE (NEGATIVE) 04/27/20 15:00 04/27/20 04/27/20 11:27 11:27 Troponin I 0.125 NT-Pro-B Natriuret Pep [id number] H Impressions: Chest X-Ray 04/27/20 11:33 IMPRESSION: Moderate pulmonary edema. Superimposed infectious/ inflammatory process in both lungs is not entirely excluded. Plan Health Concerns: High readmission risk due to medication administration and follow up noncompliance. Plan of Treatment: Maintain on all preadmission medication and emphasized compliance with follow up appointment. Engage in community services for care supervision, monitoring and tracheostomy care. Goals: Improve medication and follow up compliance to decrease readmission risk. Time Spent: Greater than 30 Minutes - Post acute care coordination and counseling. Stroke Is this a Stroke Patient?: No Acute Heart Failure - Is this a Heart Failure Patient?: No
== END 2020-05-02 13:15 | disposition home health service (06) | DRG 191 ==
LOC: ER 11:15 → EH 16:04 → 5 19:40
PROVIDERS: ADMIT Internal Medicine Geriatric Medicine; ATTEND Internal Medicine Geriatric Medicine
DX: J44.1 Chronic obstructive pulmonary disease with (acute) exacerbation (principal); I48.20 Chronic atrial fibrillation, unspecified; I50.42 Chronic combined systolic (congestive) and diastolic (congestive) heart failure; J95.03 Malfunction of tracheostomy stoma; J44.0 Chronic obstructive pulmonary disease with (acute) lower respiratory infection; C44.40 Unspecified malignant neoplasm of skin of scalp and neck; I25.10 Atherosclerotic heart disease of native coronary artery without angina pectoris; E78.00 Pure hypercholesterolemia, unspecified; Z85.01 Personal history of malignant neoplasm of esophagus; I11.0 Hypertensive heart disease with heart failure; Z91.19 Patient's noncompliance with other medical treatment and regimen; Z88.0 Allergy status to penicillin; Z88.6 Allergy status to analgesic agent; Z86.14 Personal history of Methicillin resistant Staphylococcus aureus infection; Z95.5 Presence of coronary angioplasty implant and graft; I25.2 Old myocardial infarction; Z20.828 Contact with and (suspected) exposure to other viral communicable diseases; F17.200 Nicotine dependence, unspecified, uncomplicated; Z79.01 Long term (current) use of anticoagulants; Z95.1 Presence of aortocoronary bypass graft
CPT/HCPCS: 36415; 71045; 80048; 80053; 80162; 81001; 82550; 83735; 83880; 84484; 85025; 87040; 87070; 87077; 87186; 87205; 87635; 93005; 93010; 96365; 96375; 99291; C9803; J1160; J1940; J1956; J3490

== ENCOUNTER 2020-05-30 20:41 | Inpatient (IN) | payer MEDICARE, MEDICAID ==
[2020-05-30] MEDS ORDERED: DILTIAZEM HCL/D5W 125 MG/125 ML RTUINJ IV ONE (20:52)
[2020-05-30 22:40] LABS: ABSOLUTE BASOPHILS # (AUTO) 0.1 10^3/uL (0.0-0.2); ABSOLUTE EOSINOPHILS # (AUTO) 0.1 10^3/uL (0.0-0.6); ABSOLUTE LYMPHOCYTES (AUTO) 1.3 10^3/uL (0.5-4.7); ABSOLUTE MONOCYTES (AUTO) 0.7 10^3/uL (0.1-1.4); ABSOLUTE NEUT (AUTO) 7.4 10^3/uL (1.7-8.2); BASOPHILS % (AUTO) 0.6 % (0-2); EOSINOPHILS % (AUTO) 0.8 % (0-6); HEMATOCRIT 39.3 % (37.9-51.0); HEMOGLOBIN 13.2 g/dL (13.5-17.0); LYMPHOCYTES % (AUTO) 13.5 % (13-45); MEAN CORPUSCULAR HEMOGLOBIN 32.7 pg (27.0-33.4); MEAN CORPUSCULAR HGB CONC 33.5 g/dL (32.0-36.0); MEAN CORPUSCULAR VOLUME 98 fl (80-97); MONOCYTES % (AUTO) 7.3 % (3-13); PLATELET COUNT 204 10^3/uL (150-450); RED BLOOD COUNT 4.03 10^6/uL (4.35-5.55); RED CELL DISTRIBUTION WIDTH 15.8 % (11.5-14.0); SEGMENTED NEUTROPHILS % (AUTO) 77.8 % (42-78); TOTAL CELLS COUNTED % (AUTO) 100 %; WHITE BLOOD COUNT 9.5 10^3/uL (4.0-10.5)
[2020-05-30] MEDS: DILTIAZEM HCL/D5W 125 MG/125 ML RTUINJ IV PRN (22:44)
[2020-05-30] MEDS ORDERED: DIGOXIN INJ 0.5 MG/2 ML AMPULE IV ONE (22:45)
[2020-05-30] MEDS ORDERED: DILTIAZEM HCL INJ 25 MG/5 ML VIAL IV ONE (22:45)
[2020-05-30 22:47] LABS: ALBUMIN 4.2 g/dL (3.5-5.0); ALKALINE PHOSPHATASE 75 U/L (38-126); ANION GAP 9 (5-19); ASPARTATE AMINO TRANSFERASE 29 U/L (17-59); BILIRUBIN,DIRECT 0.5 mg/dL (0.0-0.4); BILIRUBIN,TOTAL 1.7 mg/dL (0.2-1.3); BLOOD UREA NITROGEN 34 mg/dL (7-20); CALCIUM 9.6 mg/dL (8.4-10.2); CARBON DIOXIDE 25 mmol/L (22-30); CHLORIDE 102 mmol/L (98-107); GLUCOSE 117 mg/dL (75-110); POTASSIUM 4.6 mmol/L (3.6-5.0); TOTAL PROTEIN 8.5 g/dL (6.3-8.2)
[2020-05-30 22:49] LABS: ALCOHOL < 10 mg/dL (NONE DETECTED)
[2020-05-30] MEDS ORDERED: LEVOFLOXACIN 750 MG/D5W RTU 750 MG/150 ML RTUPB IV ONE (23:00)
[2020-05-30 23:02] LABS: TROPONIN I 0.13 ng/mL
--- NOTE | 2020-05-30 23:07 | RADIOLOGY REPORT (SQ) ---
EXAM DESCRIPTION: XR CHEST 1 VIEW COMPLETED DATE/TME: 05/30/2020 21:40 CLINICAL HISTORY: 70 years, Male, dyspnea COMPARISON: Multiple priors, most recent from 04/27/2020 NUMBER OF VIEWS: One TECHNIQUE: Single frontal view of the chest was obtained portably LIMITATIONS: None. FINDINGS: Tracheostomy tube tip is located within the trachea, approximately 5.5 cm above the yesika. Left subclavian approach central venous port catheter tip is located in the upper SVC. Status post median sternotomy. Cardiopericardial silhouette is enlarged. Mediastinal contours are stable. Visualized is bilateral perihilar opacity with vascular indistinctness. No pneumothorax or large pleural effusion. IMPRESSION: Suspect mild pulmonary edema. Cardiomegaly. copyright 2010 [employer]- All Rights Reserved
--- NOTE | 2020-05-30 23:15 | ER Document Report ---
ED General - General Chief Complaint: Arrhythmia Stated Complaint: DIFFICULTY BREATHING Time Seen by Provider: 05/30/20 21:15 Primary Care Provider: MARCOS WILSON MD [Primary Care Provider] - Follow up as needed TRAVEL OUTSIDE OF THE [place] IN LAST 30 DAYS: No - HPI Notes: Chief complaint: Difficulty breathing History of present illness: 70-year-old man followed by Dr. CONTRERAS with a history of chronic atrial fibrillation, CHF, tracheostomy and COPD presenting now with worsening shortness of breath. He was admitted here under similar circumstances by Dr. CONTRERAS 1 month ago. Patient is very noncompliant with medical care follow up and medication administration. At the time of prior admission his tracheostomy was almost clogged off at presentation and aspirate culture grew multiple organism sensitive to Levofloxacin. He was discharge home on five more days on Levofloxacin therapy which she completed. Patient is on full CODE STATUS. Previously prescribed medications: Diltiazem HCl [Cardizem Cd 120 mg Capsule] 120 mg PO Q12 #60 Ipratropium/Albuterol Sulfate [Duoneb 3 ml Ampul] 3 ml NEB Q4HP PRN #120 vial.neb PRN Reason: Apixaban [Eliquis 5 mg Tablet] 5 mg PO Q12 #60 tablet Digoxin [Lanoxin 0.25 mg Tablet] 0.125 mg PO DAILY #30 Budesonide [Pulmicort Neb 0.25 mg/2 ml Ampul] 0.25 mg NEB RTQ12 #180 ampul.neb Hydroxyzine Pamoate [Vistaril] 25 mg PO HSP PRN 11/05/19 Omeprazole 20 mg PO Q12 11/05/19 Oxycodone HCl/Acetaminophen [Oxycodone-Acetaminophen 10-325] 1 tab PO Q4HP PRN 11/05/19 Tizanidine HCl 2 mg PO HSP PRN 11/05/19 - Related Data Allergies/Adverse Reactions: Penicillins Allergy (Severe, Verified 03/24/20 08:00) turned blue as infant aspirin Allergy (Verified 03/24/20 08:00) Past Medical History - General Information source: Patient, Emergency Med Personnel, [facility] Records - Social History Smoking Status: Former Smoker Frequency of alcohol use: None Drug Abuse: None Lives with: Family Family History: Hypertension Patient has homicidal ideation: No - Past Medical History Cardiac Medical History: Reports: Hx Atrial Fibrillation, Hx Congestive Heart Failure - LVEF 20%, Hx Coronary Artery Disease, Hx Heart Attack - 2010 Denies: Hx DVT, Hx Hypertension, Hx Pulmonary Embolism Pulmonary Medical History: Reports: Hx COPD, Hx Respiratory Failure Denies: Hx Asthma, Hx Bronchitis, Hx Pneumonia, Hx Sleep Apnea Neurological Medical History: Denies: Hx Cerebrovascular Accident, Hx Seizures Endocrine Medical History: Denies: Hx Diabetes Mellitus Type 1, Hx Diabetes Mellitus Type 2 Renal/ Medical History: Denies: Hx Peritoneal Dialysis Malignancy Medical History: Reports Hx Skin Cancer GI Medical History: Denies: Hx Cirrhosis, Hx Hepatitis Musculoskeletal Medical History: Denies Hx Arthritis, Denies Hx Gout Skin Medical History: Denies Hx Eczema, Denies Hx Psoriasis Psychiatric Medical History: Denies: Hx Depression Infectious Medical History: Reports: Hx MRSA. Denies: Hx Hepatitis Past Surgical History: Reports: Hx Abdominal Surgery - PEG, Hx Cardiac Catheterization, Hx Cardiac Surgery - CAPG, Hx Coronary Artery Bypass Graft - 11/2011, Hx Coronary Stent - Immunizations Immunizations up to date: Yes Hx Diphtheria, Pertussis, Tetanus Vaccination: No - unk Hx Pneumococcal Vaccination: 08/04/19 Review of Systems - Review of Systems Notes: Constitutional: Negative for fever. HENT: Negative for sore throat. Eyes: Negative for visual changes. Cardiovascular: Negative for chest pain. Respiratory: As per HPI. Gastrointestinal: Negative for abdominal pain, vomiting or diarrhea. Genitourinary: Negative for dysuria. Musculoskeletal: Negative for back pain. Skin: Patient has a fungating mass of the scalp which he identifies as a skin cancer previously identified and under treatment. Neurological: Negative for headaches, focal weakness or numbness. 10 point ROS negative except as marked above and in HPI. Physical Exam - Vital signs Vitals: Temp 98.9 F 05/30/20 20:42 - Notes Notes: GENERAL: Cachectic unkempt elderly male with tracheostomy who appears dyspneic. Very foul odor emanating from fungating mass of the scalp which patient identifies as a skin cancer under treatment. SKIN: Scalp mass with brown drainage and foul odor. HEAD: 5.5 cm fungating mass of the scalp right parietal area with brown drainage and foul odor. EYES: Prominent bilateral arcus senilis. PERRLA. EOMI. Conjunctivae and sclerae clear. EARS: CANALS AND TMS CLEAR. NOSE: CLEAR. MOUTH: Moist mucosa. Edentulous. No stridor or edema. No drooling. NECK: Tracheostomy present. This is very dirty with foul yellow drainage and the tracheostomy is almost occluded. Supple. No masses or thyromegaly. No adenopathy. Carotids 2+ without bruits. No JVD. BACK: Symmetrical without tenderness. CHEST: Respirations mildly labored. Scattered rhonchi bilaterally. HEART: Tachycardic irregularly irregular rhythm. No murmur gallop or rub. ABDOMEN: Soft nontender without masses, organomegaly or rebound. Bowel sounds normally active. No bruits. GENITALIA: Deferred. EXTREMITIES: No edema. No calf tenderness. Cap refill less than 1.5 seconds. Dorsalis pedis and posterior tibial pulses 3+ and symmetrical. NEUROLOGICAL: GCS 15. Alert and oriented x3. Fluent speech. Cranial nerves II through XII intact. Sensorimotor and cerebellar normal. Normal tone. PSYCHIATRIC: Anxious affect. Course - Re-evaluation Re-evalutation: 05/31/20 00:12 EMS had started diltiazem in the field. I gave him additional diltiazem bolus here and we put him on drip and nurses were instructed to titrate this to get his rate down below 100. His blood pressure was initially about 105 systolic but I looked back at prior hospitalizations and this is typical for him. He lo oks like he has an infection of the upper airway. I asked respiratory to suction him and clean the tracheostomy and we have also sent cultures and Gram stain. I went ahead and ordered another dose of Levaquin for him IV. He is currently on Eliquis. I think from talking to him it is likely that he is noncompliant with his diltiazem and digoxin at home as he has been previously. He does not have a fever here. His white count is not elevated. Chest x-ray is consistent with mild CHF. No focal infiltrates are clearly identified. His BNP is about 17,000. I have ordered some IV Lasix form. Patient subsequently has developed worsening respiratory distress has becoming confused and is pulled his IVs out. These have been replaced and we are starting him on mechanical ventilation with his tracheostomy. His troponin is 0.13. EKG shows atrial fibrillation with rapid ventricular response and inferolateral ST depressions consistent with ischemia. These changes are somewhat more prominent compared to prior tracing of 04/27/2020. His QRS axis at this time is +87 degrees. Intervals are normal. He has not complained of any chest pain. EKG shows no acute ST changes. He will need to be admitted to the critical care unit. 05/31/20 00:21 05/31/20 00:23 Patient has been accepted for admission to critical care unit under the care of Dr. Bernard Funk. - Vital Signs Vital signs: Temp Pulse Resp BP Pulse Ox 98.9 F 39 H 96/74 L 92 05/30/20 20:46 05/30/20 21:00 05/30/20 21:00 05/30/20 21:00 - Laboratory Result Diagrams: 05/30/20 20:47 05/30/20 20:47 Laboratory results interpreted by me: 05/30/20 05/30/20 05/30/20 20:47 20:47 20:47 RBC 4.03 L Hgb 13.2 L MCV 98 H RDW 15.8 H Sodium 136.2 L BUN 34 H Glucose 117 H Magnesium 2.5 H Total Bilirubin 1.7 H Direct Bilirubin 0.5 H NT-Pro-B Natriuret Pep 44290 H Total Protein 8.5 H - Diagnostic Test Radiology reviewed: Reports reviewed - Portable chest x-ray per radiologist: Mild CHF. - EKG Interpretation by Me Additional EKG results interpreted by me: 05/31/20 00:23 EKG shows atrial fibrillation with rapid ventricular response and inferolateral ST depressions consistent with ischemia. These changes are somewhat more prominent compared to prior tracing of 04/27/2020. His QRS axis at this time is +87 degrees. Intervals are normal. Indication for current study: Atrial fibrillation and dyspnea. Critical Care Note - Critical Care Note Total time excluding time spent on procedures (mins): 65 - Atrial fib requiring diltiazem bolus and drip. Mechanical ventilation via tracheostomy. Acute non- STEMI. Discharge - Discharge Clinical Impression: Acute on chronic respiratory failure, Atrial fibrillation with rapid ventricular response, Chronic atrial fibrillation with rapid ventricular response, COPD exacerbation, History of malignant neoplasm of esophagus Congestive heart failure (CHF) Qualifiers: Heart failure type: unspecified Heart failure chronicity: acute on chronic Qualified Code(s): I50.9 - Heart failure, unspecified Condition: Critical Disposition: ADMITTED INPATIENT Admitting Provider: Good (Occupational Health And Safety Manager) Referrals: MARCOS WILSON MD [Primary Care Provider] - Follow up as needed
[2020-05-30] MEDS ORDERED: FUROSEMIDE INJ/PF 20 MG/2 ML SDV IV ONE (23:21)
[2020-05-31 00:49] LABS: ARTERIAL BLOOD BASE EXCESS -7.5 mmol/L; ARTERIAL BLOOD H2CO3 1.28 mmol/L (1.05-1.35); ARTERIAL BLOOD HCO3 19.1 mmol/L (20-24); ARTERIAL BLOOD O2 SATURATION 98.4 % (94-98); ARTERIAL BLOOD PCO2 42.5 mmHg (35-45); ARTERIAL BLOOD PH 7.27 (7.35-7.45); ARTERIAL BLOOD PO2 137.1 mmHg (80-100); ARTERIAL BLOOD TOTAL CO2 20.4 mmol/L (23-27)
[2020-05-31 00:56] LABS: ARTERIAL BLOOD FIO2 100%
--- NOTE | 2020-05-31 03:40 | CRITICAL CARE ADMISSION REPORT ---
<GENEVIEVECHARLOTTE MAYS Rio - Last Filed: 05/31/20 03:09> HPI Date:: 05/31/20 Time:: 03:09 Reason for ICU Reason:: Acute on chronic hypoxic respiratory failure Admission Date/Time & PCP: Admission Date/Time: 05/31/20 01:06 Primary Care Provider: LEO RICKETTS DO HPI: History Chace Urrutia is a 70-year-old male patient of Dr. Alex past medical history of chronic A. fib on Eliquis, CHF, chronic respiratory failure status post tracheostomy, and COPD. Resented to the ED with worsening shortness of breath. He is well-known to us last admission was 1 month ago for acute on chronic respiratory failure. His last admission was on 04/27/2020 with COPD exacerbation he was discharged on 05/02/2020 during that hospitalization his tracheal aspirate grew multiple organisms sensitive to levofloxacin he was discharged home on 5 days of levofloxacin therapy which he did complete. He called EMS for worsening shortness of breath upon their arrival he was noted to be in A. fib RVR with heart rates in the 160s he was given 125 mg of diltiazem IV he was given a an additional bolus in the ED and placed on a drip at 5 mg an hour. His systolic blood pressure was 105 which is his baseline. He is a febrile no leukocytosis chest x-ray shows pulmonary edema. He was given Lasix 20 mg IV x1. He will aspirate was sent and he was given 1 dose of levofloxacin 750 mg x 1. His BNP was 17,000. He subsequently developed worsening respiratory distress becoming confused and agitated. Therefore he was placed on mechanical ventilation. His troponin was 0.13 EKG shows atrial fibrillation with RVR. He was given 1 dose of digoxin 0.25 mg IV. His heart rate dropped to the 90s and he became hypotensive with a blood pressure of 90/50, diltiazem drip was stopped. He is admitted to the ICU for further management. - Diagnosis/Plan (1) Atrial fibrillation with rapid ventricular response Is this a current diagnosis for this admission?: Yes Plan: Continue Eliquis 5 mg p.o. every 12 hours Continue home dose digoxin 0.125 mg p.o. daily Continue diltiazem CD 120 mg p.o. every 12 hours (2) Congestive heart failure (CHF) Qualifiers: Heart failure type: unspecified Heart failure chronicity: acute on chronic Qualified Code(s): I50.9 - Heart failure, unspecified Is this a current diagnosis for this admission?: Yes Plan: Continue diuresis will give an extra dose of Lasix 20 mg IV now Not on diuretics at home will need guideline directed therapy prior to discharge (3) Acute on chronic respiratory failure with hypoxia and hypercapnia Is this a current diagnosis for this admission?: Yes Plan: Was placed on mechanical ventilation in the ED, patient improved is now currently on trach collar at 50% O2 sat 96 to 98% DuoNeb every 4 hours as needed We will hold off on antibiotics as patient is afebrile with no leukocytosis, awaiting tracheal aspirate culture and Gram stain Past Medical History Cardiac Medical History: Reports: Atrial Fibrillation, Congestive Heart Failure - LVEF 20%, Coronary Artery Disease, Myocardial Infarction - 2009 Denies: DVT, Hypertension, Pulmonary Embolism Pulmonary Medical History: Reports: Chronic Obstructive Pulmonary Disease (COPD), Respiratory Failure Denies: Asthma, Bronchitis, Pneumonia, Sleep Apnea Neurological Medical History: Denies: Seizures Endocrine Medical History: Denies: Diabetes Mellitus Type 1, Diabetes Mellitus Type 2 Malignancy Medical History: Reports: Skin Cancer GI Medical History: Denies: Cirrhosis, Hepatitis Musculoskeltal Medical History: Denies: Arthritis, Gout Skin Medical History: Denies: Eczema, Psoriasis Psychiatric Medical History: Denies: Depression Hematology: Denies: Anemia, Bleeding Tendencies Infectious Medical History: Reports: Methicillin-Resistant Staph Aureus Past Surgical History Past Surgical History: Reports: Cardiac Catheterization, Coronary Artery Bypass Graft - 11/2011, Coronary Stent Social/Family History - Social History Lives with: Family Smoking Status: Former Smoker Frequency of Alcohol Use: None Hx Recreational Drug Use: No Drugs: None Hx Prescription Drug Abuse: No - Medication/Allergies Home Medications: Hydroxyzine Pamoate [Vistaril] 25 mg PO HSP PRN 11/05/19 Omeprazole 20 mg PO Q12 11/05/19 Oxycodone HCl/Acetaminophen [Oxycodone-Acetaminophen 10-325] 1 tab PO Q4HP PRN 11/05/19 Tizanidine HCl 2 mg PO HSP PRN 11/05/19 Apixaban [Eliquis 5 mg Tablet] 5 mg PO Q12 #60 tablet 05/02/20 Budesonide [Pulmicort Neb 0.25 mg/2 ml Ampul] 0.25 mg NEB RTQ12 #180 ampul.neb 05/02/20 Digoxin [Lanoxin 0.25 mg Tablet] 0.125 mg PO DAILY #30 05/02/20 Diltiazem HCl [Cardizem Cd 120 mg Capsule] 120 mg PO Q12 #60 05/02/20 Ipratropium/Albuterol Sulfate [Duoneb 3 ml Ampul] 3 ml NEB RTQ4HP PRN 05/31/20 Allergies/Adverse Reactions: Penicillins Allergy (Severe, Verified 03/24/20 08:00) turned blue as infant aspirin Allergy (Verified 03/24/20 08:00) Review of Systems All systems: reviewed and no additional remarkable complaints except as stated Physical Exam Vital Signs: Temp Pulse Resp BP Pulse Ox 99.2 F 28 H 95/70 L 100 05/31/20 01:34 05/31/20 01:18 05/31/20 01:18 05/31/20 01:18 Intake & Output 05/29/20 05/30/20 05/31/20 06:59 06:59 06:59 Intake Total 38 Balance 38 General appearance: PRESENT: mild distress Head exam: PRESENT: atraumatic, normocephalic Eye exam: PRESENT: PERRLA Mouth exam: PRESENT: moist, neck supple Teeth exam: PRESENT: edentulous Neck exam: PRESENT: full ROM Respiratory exam: PRESENT: accessory muscle use, crackles Cardiovascular exam: PRESENT: irregular rhythm, tachycardia Pulses: PRESENT: normal radial pulses Extremities exam: PRESENT: full ROM Musculoskeletal exam: PRESENT: ambulatory Neurological exam: PRESENT: alert, oriented to person, oriented to place, oriented to time, oriented to situation Tubes/Lines: PRESENT: Peg Tube Laboratory/Radiographs Laboratory Results: 05/30/20 20:47 05/30/20 20:47 05/30/20 05/30/20 05/31/20 20:47 20:47 00:25 WBC 9.5 RBC 4.03 L Hgb 13.2 L Hct 39.3 MCV 98 H MCH 32.7 MCHC 33.5 RDW 15.8 H Plt Count 204 Seg Neutrophils % 77.8 Carbonic Acid 1.28 HCO3/H2CO3 Ratio 14:1 ABG pH 7.27 L ABG pCO2 42.5 ABG pO2 137.1 H ABG HCO3 19.1 L ABG O2 Saturation 98.4 H ABG Base Excess -7.5 FiO2 100% Sodium 136.2 L Potassium 4.6 Chloride 102 Carbon Dioxide 25 Anion Gap 9 BUN 34 H Creatinine 1.16 Est GFR ( Amer) > 60 Glucose 117 H Calcium 9.6 Magnesium 2.5 H Total Bilirubin 1.7 H AST 29 Alkaline Phosphatase 75 Total Protein 8.5 H Albumin 4.2 05/30/20 20:47 Troponin I 0.130 NT-Pro-B Natriuret Pep 54000 H Impressions: Chest X-Ray 05/30/20 21:40 IMPRESSION: Suspect mild pulmonary edema. Cardiomegaly. copyright 2010 [employer]- All Rights Reserved All labs, radiographs, diagnostic studies and EKGs were personally reviewed: Yes In addition, reports of radiographic and diagnostic studies were read: Yes Critical Time Critical Time (minutes): 60 -: The care of a critically ill patient is dynamic. This note represents a static moment in the admission process. Orders and treatments may be given sim ultaneously and urgently, and time is not product support representative of the treatment process. This patient requires Critical Care secondary to life threatening organ or limb dysfunction. Without Critical Care services, the patient is at risk for increased mortality and morbidity. <LEO RICKETTS - Last Filed: 05/31/20 13:12> HPI Admission Date/Time & PCP: Admission Date/Time: 05/31/20 01:06 Primary Care Provider: LEO RICKETTS DO - Diagnosis/Plan (8) Pulmonary edema Qualifiers: Chronicity: acute Qualified Code(s): J81.0 - Acute pulmonary edema Plan Summary: I personally saw and evaluated the patient after being seen by nurse practitioner Carlos. I spoke with the patient's sister who is his medical power of title attorney Patient continues to smoke with a tracheostomy. On my examination using critical care ultrasound patient has significant systolic dysfunction with an ejection fraction approaching 15%. He dilated cardiomyopathy that appears to be more chronic than acute He does have B-lines on ultrasound that are suggestive of interstitial fluid. Have started diuresis. Overall this appears to be pulmonary edema related to acute and chronic systolic heart failure. We will also screen for viral and bacterial etiologies. We cannot be assured of any contacts with COVID in the community but will screen for this. He has known atrial fibrillation and is supposed to be on anticoagulation. There is a longstanding history of medical noncompliance. I have started him on a heparin drip. He has persistent atrial fibrillation that had a transient response to digoxin and calcium channel razia. Have ordered a digoxin level and will continue medications based on results. I had a lengthy discussion with his sister Mahogany and the decision was for DNR should he have a cardiac arrest. Patient has a significant large mass of the anterior portion of his parietal aspect of his scalp. 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 His sister states that this has not been biopsied however patient has had multiple skin biopsies some of which were positive for squamous cell other is positive for basal cell carcinomas. He is also having esophageal mass. PET scan did not show any uptake in metabolic activity suggestive of metastatic disease but there was evidence of lymphadenopathy hilar region and mediastinal region of the lung. Given his very thin debilitated state possible the patient has end-stage metastatic disease from a number of sources. We will continue to provide supportive care. Should there be a decline we will notify his family and I have assured the integrity and safety of this patient's life to his family. Total CC time 50 minutes Physical Exam Vital Signs: Temp Pulse Resp BP Pulse Ox 98.8 F 109 H 23 H 94/62 L 98 05/31/20 12:00 05/31/20 12:00 05/31/20 12:31 05/31/20 12:31 05/31/20 12:31 Intake & Output 05/30/20 05/31/20 06/01/20 06:59 06:59 06:59 Intake Total 53 Output Total 800 775 Balance -747 -775 Weight 57.3 kg Weight/Height Weight 57.3 kg Height 5 ft 9 in Laboratory/Radiographs Laboratory Results: 05/30/20 20:47 05/30/20 20:47 05/30/20 05/30/20 05/31/20 20:47 20:47 00:25 WBC 9.5 RBC 4.03 L Hgb 13.2 L Hct 39.3 MCV 98 H MCH 32.7 MCHC 33.5 RDW 15.8 H Plt Count 204 Seg Neutrophils % 77.8 Carbonic Acid 1.28 HCO3/H2CO3 Ratio 14:1 ABG pH 7.27 L ABG pCO2 42.5 ABG pO2 137.1 H ABG HCO3 19.1 L ABG O2 Saturation 98.4 H ABG Base Excess -7.5 FiO2 100% Sodium 136.2 L Potassium 4.6 Chloride 102 Carbon Dioxide 25 Anion Gap 9 BUN 34 H Creatinine 1.16 Est GFR ( Amer) > 60 Glucose 117 H Calcium 9.6 Magnesium 2.5 H Total Bilirubin 1.7 H AST 29 Alkaline Phosphatase 75 Total Protein 8.5 H Albumin 4.2 05/30/20 20:47 Troponin I 0.130 NT-Pro-B Natriuret Pep 80925 H Impressions: Chest X-Ray 05/30/20 21:40 IMPRESSION: Suspect mild pulmonary edema. Cardiomegaly. copyright 2011 [employer]- All Rights Reserved Critical Time -: The care of a critically ill patient is dynamic. This note represents a static moment in the admission process. Orders and treatments may be given simultaneously and urgently, and time is not product support representative of the treatment process. This patient requires Critical Care secondary to life threatening organ or limb dysfunction. Without Critical Care services, the patient is at risk for increased mortality and morbidity.
[2020-05-31] MEDS ORDERED: FUROSEMIDE INJ/PF 20 MG/2 ML SDV IV ONE ×3 (03:44→16:45)
[2020-05-31] MEDS ORDERED: IPRATROPIUM/ALBUTEROL 0.5-2.5 MG/3 ML AMPUL NEB PRN ×2 (03:44→12:46)
[2020-05-31] MEDS ORDERED: HEPARIN SOD (PORCINE) 5,000 UNIT/ML 1 ML VIAL SUBCUT SCH (06:00)
[2020-05-31] MEDS ORDERED: DIGOXIN 0.05 MG/ML SOLN 60 ML PO SCH (10:00)
[2020-05-31] MEDS ORDERED: DILTIAZEM HCL 120 MG CAP.SR.24H PO SCH (10:00)
--- NOTE | 2020-05-31 10:09 | EKG REPORT ---
SEVERITY:- ABNORMAL ECG - ATRIAL FIBRILLATION BORDERLINE RIGHT AXIS DEVIATION REPOL ABNRM SUGGESTS ISCHEMIA, DIFFUSE LEADS : Confirmed by: Melisa Weiner MD 31-May-2020 10:08:07
[2020-05-31] MEDS ORDERED: HEPARIN SOD (PORCINE) 1,000 UNIT/ML 10 ML VIAL IV ONE (12:42)
[2020-05-31] MEDS ORDERED: TIZANIDINE HCL 4 MG TABLET PO PRN (12:46)
[2020-05-31 13:23] LABS: ARTERIAL BLOOD BASE EXCESS 1.6 mmol/L; ARTERIAL BLOOD H2CO3 1.05 mmol/L (1.05-1.35); ARTERIAL BLOOD HCO3 24.9 mmol/L (20-24); ARTERIAL BLOOD O2 SATURATION 96.4 % (94-98); ARTERIAL BLOOD PCO2 34.9 mmHg (35-45); ARTERIAL BLOOD PH 7.47 (7.35-7.45); ARTERIAL BLOOD PO2 78.6 mmHg (80-100)
[2020-05-31 13:24] LABS: ARTERIAL BLOOD FIO2 40%
[2020-05-31 13:35] LABS: APPEARANCE,URINE CLEAR; BILIRUBIN,URINE NEGATIVE (NEGATIVE); COLOR,URINE YELLOW; GLUCOSE, URINE NEGATIVE (NEGATIVE); KETONES,URINE TRACE mg/dL (NEGATIVE); LEUKOCYTE ESTERASE,URINE TRACE (NEGATIVE); NITRITE,URINE NEGATIVE (NEGATIVE); PROTEIN,URINE NEGATIVE (NEGATIVE); URINE SPECIFIC GRAVITY 1.013; UROBILINOGEN,URINE NEGATIVE mg/dL (<2.0)
[2020-05-31 13:40] LABS: INTERNATIONAL RATION (INR) 1.56; PROTHROMBIN TIME 18.8 SEC (11.4-15.4)
[2020-05-31 13:41] LABS: PARTIAL THROMBOPLASTIN TIME 30.5 SEC (23.5-35.8)
[2020-05-31 13:43] LABS: D-DIMER 2.87 ug/mL (0.00-0.50)
[2020-05-31 13:55] LABS: C-REACTIVE PROTEIN 48.3 mg/L (<10.0); DIGOXIN 0.78 ng/mL (0.8-2.0)
[2020-05-31] MEDS ORDERED: HEPARIN SOD (PORCINE) 1,000 UNIT/ML 10 ML VIAL IV PRN (15:42)
[2020-05-31] MEDS: METHYLPREDNISOLONE INJ 40 MG/1 ML SDV IV SCH ×2 (16:29→22:17)
[2020-05-31] MEDS: DIGOXIN 0.25 MG TABLET PO SCH (16:29)
[2020-05-31] MEDS: HEPARIN SODIUM,PORCINE/D5W 25,000 UNIT/250 ML RTUINJ IV PRN (17:15)
[2020-05-31 21:02] LABS: ARTERIAL BLOOD H2CO3 1.03 mmol/L (1.05-1.35); ARTERIAL BLOOD O2 SATURATION 97.1 % (94-98); ARTERIAL BLOOD PCO2 34.3 mmHg (35-45); ARTERIAL BLOOD PO2 84.3 mmHg (80-100)
[2020-05-31 21:04] LABS: ARTERIAL BLOOD FIO2 40%
[2020-05-31] MEDS ORDERED: LEVOFLOXACIN 500 MG/D5W RTU 500 MG/100 ML RTUPB IV SCH (22:00)
[2020-05-31] MEDS: FUROSEMIDE 20 MG TABLET PO SCH ×2 (22:17→22:23)
[2020-06-01] MEDS: DILTIAZEM HCL/D5W 125 MG/125 ML RTUINJ IV PRN (01:40)
[2020-06-01] MEDS: BUDESONIDE NEB 0.25 MG/2 ML AMPUL NEB SCH ×3 (03:02→20:41)
[2020-06-01 04:50] LABS: HEMATOCRIT 37.9 % (37.9-51.0); HEMOGLOBIN 13.1 g/dL (13.5-17.0); MEAN CORPUSCULAR HEMOGLOBIN 32.6 pg (27.0-33.4); MEAN CORPUSCULAR HGB CONC 34.5 g/dL (32.0-36.0); MEAN CORPUSCULAR VOLUME 95 fl (80-97); PLATELET COUNT 187 10^3/uL (150-450); RED BLOOD COUNT 4.02 10^6/uL (4.35-5.55); RED CELL DISTRIBUTION WIDTH 15.6 % (11.5-14.0); WHITE BLOOD COUNT 8.9 10^3/uL (4.0-10.5)
[2020-06-01 05:04] LABS: ANION GAP 8 (5-19); BLOOD UREA NITROGEN 40 mg/dL (7-20); CALCIUM 9.2 mg/dL (8.4-10.2); CARBON DIOXIDE 24 mmol/L (22-30); CHLORIDE 102 mmol/L (98-107); GLUCOSE 115 mg/dL (75-110); PHOSPHORUS 4.9 mg/dL (2.5-4.5); POTASSIUM 3.8 mmol/L (3.6-5.0)
[2020-06-01 05:25] LABS: ABSOLUTE LYMPHOCYTES# (MANUAL) 0.5 10^3/uL (0.5-4.7); ABSOLUTE MONOCYTES # (MANUAL) 0.1 10^3/uL (0.1-1.4); BASOPHILS % (MANUAL) 0 % (0-2); EOSINOPHILS % (MANUAL) 0 % (0-6); LYMPHOCYTES % (MANUAL) 6 % (13-45); MONOCYTES % (MANUAL) 1 % (3-13); SEGMENTED NEUTROPHILS % (MAN) 93 % (42-78); TOTAL CELLS COUNTED 100
[2020-06-01 05:26] LABS: ANISOCYTOSIS SLIGHT; PLATELET COMMENT ADEQUATE; POLYCHROMASIA SLIGHT; TOXIC GRANULATION SLIGHT
--- NOTE | 2020-06-01 08:42 | RADIOLOGY REPORT (SQ) ---
EXAM DESCRIPTION: CHEST SINGLE VIEW IMAGES COMPLETED DATE/TIME: 06/01/2020 6:34 am REASON FOR STUDY: Respiratory Failure COMPARISON: 05/30/2020 EXAM PARAMETERS: NUMBER OF VIEWS: One view. TECHNIQUE: Single frontal radiographic view of the chest acquired. RADIATION DOSE: NA LIMITATIONS: None. FINDINGS: LUNGS AND PLEURA: Mild diffuse bilateral interstitial opacities, stable. No dense consoli dation. No significant effusion. No pneumothorax. MEDIASTINUM AND HILAR STRUCTURES: No discrete mass. HEART AND VASCULAR STRUCTURES: Enlarged cardiac silhouette, stable. Central vascular congestion. Ao rtic atherosclerosis. BONES: Sternotomy changes. No acute findings. HARDWARE: Sternotomy hardware. Tracheostomy tube overlies midline at thoracic inlet. Left approach central venous chest port with catheter tip at SVC. OTHER: No other significant finding. IMPRESSION: Stable enlarged cardiac silhouette and prominent bilateral interstitial opacities, likel y mild edema. TECHNICAL DOCUMENTATION: JOB ID: [id number] 2010 [employer]- All Rights Reserved Reading location - IP/workstation name: [email or web address]
[2020-06-01] MEDS: FUROSEMIDE 20 MG TABLET PO SCH ×2 (10:13→17:37)
[2020-06-01] MEDS: METHYLPREDNISOLONE INJ 40 MG/1 ML SDV IV SCH ×2 (10:13→21:28)
[2020-06-01] MEDS: DIGOXIN 0.25 MG TABLET PO SCH (10:14)
--- NOTE | 2020-06-01 17:54 | PDOC CRITICAL CARE PROG REPORT ---
General Date:: 06/01/20 ICU Day:: 2 Hospital Day:: 2 Resuscitation Status: Do Not Resuscitate Medical Power of Mechanical Maintenance: Sister Events in the past 12 to 24 Hours:: 11.01.2020: Patient's overall condition has improved and he has been weaned from ventilator to tracheostomy collar. He has significant reduced ejection fraction was started on diuresis yesterday. This is not a new finding but there appears to be reduction from the previous altered baseline. Had a discussion with the patient regarding his prognosis and status. He endorses that he is DNR. Review of systems relevant to events:: 11.01.2020: Patient's atrial fibrillation is moderately controlled but he is still on Cardizem drip. Pressure has been low normal certainly not hypotensive. He denies abdominal pain or chest pain. He states that his shortness of breath is at his baseline. Reason for ICU Addmission:: Acute on chronic hypoxic respiratory failure - Medications: Medications reviewed and adjusted accordingly: Yes Vasopressors:: Cardizem drip Sedation:: None Physical Exam Vital Signs: Temp Pulse Resp BP Pulse Ox 97.3 F 94 23 H 92/65 L 97 06/01/20 16:00 06/01/20 16:00 06/01/20 16:00 06/01/20 16:00 06/01/20 16:00 Intake & Output 05/31/20 06/01/20 06/02/20 06:59 06:59 06:59 Intake Total 53 72 Output Total 800 3025 520 Balance -747 -2953 -520 Weight 57.3 kg 57.3 kg Weight/Height Weight 57.3 kg Height 5 ft 9 in General appearance: PRESENT: cooperative, thin Exam: 70-year-old chronically acutely ill-appearing male who is weak and debilitated and in no acute distress. He is much improved as far as mentation and attempts to communicate via trach Head exam: PRESENT: other - Significant bitemporal muscle wasting Eye exam: PRESENT: conjunctival injection, EOMI, PERRLA. ABSENT: nystagmus, scleral icterus Mouth exam: PRESENT: moist, tongue midline Teeth exam: PRESENT: edentulous Neck exam: PRESENT: tracheostomy - Clean dry and intact no erythema or bleeding. ABSENT: JVD, lymphadenopathy, tenderness Respiratory exam: PRESENT: wheezes, other - Lung sounds not auscultated secondary to the confines of PPE and poor auditory capability of disposable stethoscope. ABSENT: accessory muscle use, tachypnea, unlabored Cardiovascular exam: PRESENT: irregular rhythm, other - Heart sounds not auscultated secondary to the confines of PPE and poor auditory capability of disposable stethoscope. ABSENT: tachycardia Pulses: ABSENT: normal dorsalis pedis pul GI/Abdominal exam: PRESENT: soft, other - Gastric sounds not auscultated secondary to the confines of PPE and poor auditory capability of disposable stethoscope PEG tube site clean dry and intact no erythema.. ABSENT: ascites, firm, guarding, mass, tenderness Rectal exam: PRESENT: deferred Gentrourinary exam: PRESENT: indwelling catheter Extremities exam: ABSENT: pedal edema Musculoskeletal exam: ABSENT: deformity, dislocation Neurological exam: PRESENT: alert, awake, oriented to person, oriented to place, oriented to time, oriented to situation, CN II-XII grossly intact, other - Symmetrical upper and lower muscle weakness. ABSENT: motor sensory deficit Psychiatric exam: PRESENT: appropriate affect Focused psych exam: ABSENT: pressured speech, psychomotor agitation, restlessness Skin exam: PRESENT: dry, intact, warm. ABSENT: cyanosis, rash Tubes/Lines: PRESENT: Peg Tube, Other - Tracheostomy, Rojas type urinary catheter Laboratory/Radiographs Laboratory Results: 06/01/20 04:01 06/01/20 04:01 05/31/20 06/01/20 06/01/20 20:50 04:01 04:01 WBC 8.9 RBC 4.02 L Hgb 13.1 L Hct 37.9 MCV 95 MCH 32.6 MCHC 34.5 RDW 15.6 H Plt Count 187 Seg Neutrophils % Not Reportable Carbonic Acid 1.03 L HCO3/H2CO3 Ratio 25:1 ABG pH 7.50 H ABG pCO2 34.3 L ABG pO2 84.3 ABG HCO3 26.0 H ABG O2 Saturation 97.1 ABG Base Excess 3.0 FiO2 40% Sodium 133.8 L Potassium 3.8 Chloride 102 Carbon Dioxide 24 Anion Gap 8 BUN 40 H Creatinine 1.11 Est GFR ( Amer) > 60 Glucose 115 H Calcium 9.2 Phosphorus 4.9 H Magnesium 2.2 05/30/20 05/31/20 20:47 13:16 Troponin I 0.130 0.117 NT-Pro-B Natriuret Pep 38946 H Impressions: Chest X-Ray 06/01/20 06:00 IMPRESSION: Stable enlarged cardiac silhouette and prominent bilateral interstitial opacities, likely mild edema. All labs, radiographs, diagnostic studies and EKGs were personally reviewed: Yes In addition, reports of radiographic and diagnostic studies were read: Yes Assessment and Plan - Diagnosis (1) Acute metabolic encephalopathy Is this a current diagnosis for this admission?: Yes (2) Atrial fibrillation with rapid ventricular response Is this a current diagnosis for this admission?: Yes (3) COPD exacerbation Is this a current diagnosis for this admission?: Yes (4) Acute on chronic respiratory failure with hypoxia and hypercapnia Is this a current diagnosis for this admission?: Yes (5) Acute systolic congestive heart failure Is this a current diagnosis for this admission?: Yes (6) Chronic combined systolic (congestive) and diastolic (congestive) heart failure Is this a current diagnosis for this admission?: Yes (7) Chronic obstructive pulmonary disease with (acute) exacerbation Is this a current diagnosis for this admission?: Yes (8) Pulmonary edema Qualifiers: Chronicity: acute Qualified Code(s): J81.0 - Acute pulmonary edema Is this a current diagnosis for this admission?: Yes (9) Skin cancer of scalp Is this a current diagnosis for this admission?: Yes (10) Tracheostomy in place Is this a current diagnosis for this admission?: Yes (11) Tobacco dependency Is this a current diagnosis for this admission?: Yes Plan Summary: 06.01.2020: Patient has improved and he has been transitioned to trach collar. He normally is on trach collar or air at home. He does have corynebacterium and Serratia on tracheal specimen however his chest x-ray is dramatically improved and he is showing no sign of active infection. This appears to be colonization. If his situation worsens or he becomes hypotensive or shows any evidence of recrudescence respiratory failure we will place him on meropenem. Patient confirmed today that he is DNR agreement with his sister. He has significant tumor burden to his scalp and is unsure of whether he wants any procedures. Does endorse significant weight loss He does state that his nutrition status has been poor and he feels anorexic. He has not tried to feed himself through the PEG tube. He does have significant chronic systolic and diastolic biventricular failure. Have started him on diuresis which is improved his overall situation. If his blood pressure remains stable we will start him on perfunctory heart failure medications. His scalp lesion shows minimal bleeding while on heparin anticoagulation for atrial fibrillation. Follow for bleeding. May not be candidate for home therapy given his feable state. Will start enteral calcium channel razia and attempt to start beta razia. Follow electrolyte panel and overall status supportively. Wean steroids Will need palliative care consult--placed for AM-Dr. Zuniga 05.31.2020: I personally saw and evaluated the patient after being seen by nurse practitioner Carlos. 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 On my examination using critical care ultrasound patient has significant systolic dysfunction with an ejection fraction approaching 15%. He dilated cardiomyopathy that appears to be more chronic than acute He does have B-lines on ultrasound that are suggestive of interstitial fluid. Have started diuresis. Overall this appears to be pulmonary edema related to acute and chronic systolic heart failure. We will also screen for viral and bacterial etiologies. We cannot be assured of any contacts with COVID in the community but will screen for this. He has known atrial fibrillation and is supposed to be on anticoagulation. There is a longstanding history of medical noncompliance. I have started him on a heparin drip. He has persistent atrial fibrillation that had a transient response to digoxin and calcium channel razia. Have ordered a digoxin level and will continue medications based on results. I had a lengthy discussion with his sister Mahogany and the decision was for DNR should he have a cardiac arrest. Patient has a significant large mass of the anterior portion of his parietal aspect of his scalp. 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 His sister states that this has not been biopsied however patient has had multiple skin biopsies some of which were positive for squamous cell other is positive for basal cell carcinomas. He is also having esophageal mass. PET scan did not show any uptake in metabolic activity suggestive of metastatic disease but there was evidence of lymphadenopathy hilar region and mediastinal region of the lung. Given his very thin debilitated state possible the patient has end-stage metastatic disease from a number of sources. We will continue to provide supportive care. Should there be a decline we will notify his family and I have assured the integrity and safety of this patient's life to his family. Critical Time Critical Time (minutes): 35 Level of Care: IMCU Anticipated discharge: Home with Homehealth, Hospice Anticipated DC Timeframe: within 72 hours -: 1. The care of a critical patient is a dynamic process. This note is a community health program representative synopsis but static in nature. The timeframe for treatments given in order is not necessarily the actual time these treatments may have been done. 2. This patient requires critical care secondary to ongoing requirements for therapy not offered or safe outside the critical care environment. Transfer to a lower level of care will result in altered life or limb morbidity and mortality. 3. Multidisciplinary rounds completed. 4. ABCDE bundle addressed.
[2020-06-01] MEDS ORDERED: MEROPENEM 1 GM in NORMAL SALINE 50 ML IV SCH (19:00)
--- NOTE | 2020-06-01 21:36 | XCELERA REPORT ---
[address] [address] Transthoracic Echocardiogram Report Name: RUKHSANA GRAHAM Age: 70 yrs Gender: Male : 1950 Patient Status: Inpatient Patient Location: ICU^602^A Study Date: 05/31/2020 08:24 PM Height: 69 in Weight: 126 lb BSA: 1.7 m2 Procedure: A two-dimensional transthoracic echocardiogram with color flow and Doppler was performed. Study Quality: Fair. Reason For Study: respiratory failure History: respiratory failure. Ordering Physician: LEO RICKETTS Performed By: Saba Gan Interpretation Summary The left ventricle is mildly to moderately dilated. There is normal left ventricular wall thickness. LV EF is Less than 20% Left ventricular systolic function is severely reduced. There is severe global hypokinesis of the left ventricle. There is no thrombus. ASD,VSD and PFO not assessed. The right ventricle is mild to moderately dilated. The right ventricle is not well visualized secondary to technical limitations The right ventricular systolic function is mildly reduced. The right atrium is mildly dilated. The left atrium is moderately dilated. There is mild to moderate mitral leaflet calcification. There is no evidence of mitral valve prolapse. There is a trace amount of mitral regurgitation There is no aortic valvular vegetation. There is mild aortic stenosis There is a peak gradient of 23.8 mm of Hg , and a mean gradient of 12.1 mm of Hg. There is no LVOT obstruction. There is a mild to moderate amount of aortic regurgitation There is no tricuspid stenosis. There is a mild amount of tricuspid regurgitation There is mild pulmonary hypertension by echo RVSP is 36 to 41 mm of Hg , with RA mean of 10 to 15. There is no pulmonic valvular stenosis. There is a trace amount of pulmonic regurgitation The aortic root is normal size. The inferior vena cava appeared normal and decreased < 50% with respiration (RAP 10-15 mmHg) There is no pericardial effusion. MMode/2D Measurements & Calculations RVDd: 3.2 cm LVIDd: 5.6 cm FS: 14.8 % Ao root diam: 3.3 cm IVSd: 1.2 cm LVIDs: 4.8 cm EDV(Teich): 153.3 ml Ao root area: 8.7 cm2 LVPWd: 0.83 cm ESV(Teich): 105.9 ml LA dimension: 4.8 cm EF(Teich): 30.9 % LVOT diam: 2.1 cm LVOT area: 3.5 cm2 Doppler Measurements & Calculations MV E max placido: MV P1/2t max placido: Ao V2 max: AI max placido: 107.6 cm/sec 145.4 cm/sec 243.7 cm/sec 398.2 cm/sec MV P1/2t: 151.2 msec Ao max PG: AI max PG: MVA(P1/2t): 1.5 cm2 23.8 mmHg 63.4 mmHg MV dec slope: Ao V2 mean: AI dec slope: 161.7 cm/sec 199.5 cm/sec2 281.7 cm/sec2 Ao mean PG: AI P1/2t: MV dec time: 12.1 mmHg 584.5 msec 0.24 sec Ao V2 VTI: 42.1 cm SALVADOR(I,D): 1.9 cm2 SALVADOR(V,D): 1.9 cm2 LV V1 max PG: SV(LVOT): 82.0 ml PA V2 max: PI end-d placido: 7.3 mmHg 106.6 cm/sec 97.0 cm/sec LV V1 mean PG: PA max P.6 mmHg 4.5 mmHg LV V1 max: 134.8 cm/sec LV V1 mean: 86.8 cm/sec LV V1 VTI: 23.5 cm TR max placido: AV P1/2t-pr_phl: MV P1/2t-pr_phl: 253.1 cm/sec 584.5 msec 151.2 msec TR max P.6 mmHg Left Ventricle The left ventricle is mildly to moderately dilated. There is normal left ventricular wall thickness. LV EF is Less than 20%. Left ventricular systolic function is severely reduced. LV diastolic function could not be adequately assessed due to atrial fibrilation. There is severe global hypokinesis of the left ventricle. There is no thrombus. ASD,VSD and PFO not assessed. Right Ventricle The right ventricle is mild to moderately dilated. The right ventricle is not well visualized secondary to technical limitations. The right ventricular systolic function is mildly reduced. Atria The right atrium is mildly dilated. The left atrium is moderately dilated. Mitral Valve There is mild to moderate mitral leaflet calcification. There is no evidence of mitral valve prolapse. There is mild mitral stenosis. There is a trace amount of mitral regurgitation. Aortic Valve There is no aortic valvular vegetation. There is mild aortic stenosis. There is a peak gradient of 23.8 mm of Hg , and a mean gradient of 12.1 mm of Hg. There is no LVOT obstruction. There is a mild to moderate amount of aortic regurgitation. Tricuspid Valve There is no tricuspid stenosis. There is a mild amount of tricuspid regurgitation. There is mild pulmonary hypertension by echo. RVSP is 36 to 41 mm of Hg , with RA mean of 10 to 15. Pulmonic Valve There is no pulmonic valvular stenosis. There is a trace amount of pulmonic regurgitation. Great Vessels The aortic root is normal size. The inferior vena cava appeared normal and decreased < 50% with respiration (RAP 10-15 mmHg). Effusions There is no pericardial effusion. : LEO RICKETTS Lakshmi
[2020-06-02] MEDS: HEPARIN SODIUM,PORCINE/D5W 25,000 UNIT/250 ML RTUINJ IV PRN (01:27)
[2020-06-02] MEDS: DILTIAZEM HCL/D5W 125 MG/125 ML RTUINJ IV PRN (03:50)
[2020-06-02 04:44] LABS: HEMATOCRIT 38.5 % (37.9-51.0); HEMOGLOBIN 13.2 g/dL (13.5-17.0); MEAN CORPUSCULAR HEMOGLOBIN 32.3 pg (27.0-33.4); MEAN CORPUSCULAR HGB CONC 34.4 g/dL (32.0-36.0); MEAN CORPUSCULAR VOLUME 94 fl (80-97); PLATELET COUNT 198 10^3/uL (150-450); RED BLOOD COUNT 4.09 10^6/uL (4.35-5.55); RED CELL DISTRIBUTION WIDTH 15.5 % (11.5-14.0); WHITE BLOOD COUNT 15.4 10^3/uL (4.0-10.5)
[2020-06-02 05:07] LABS: ABSOLUTE LYMPHOCYTES# (MANUAL) 0.3 10^3/uL (0.5-4.7); ABSOLUTE MONOCYTES # (MANUAL) 0.3 10^3/uL (0.1-1.4); BASOPHILS % (MANUAL) 0 % (0-2); EOSINOPHILS % (MANUAL) 0 % (0-6); LYMPHOCYTES % (MANUAL) 2 % (13-45); MONOCYTES % (MANUAL) 2 % (3-13); SEGMENTED NEUTROPHILS % (MAN) 96 % (42-78); TOTAL CELLS COUNTED 100
[2020-06-02 05:08] LABS: ANISOCYTOSIS 1+; PLATELET COMMENT ADEQUATE
[2020-06-02 05:09] LABS: ANION GAP 9 (5-19); BLOOD UREA NITROGEN 50 mg/dL (7-20); CALCIUM 9.1 mg/dL (8.4-10.2); CARBON DIOXIDE 26 mmol/L (22-30); CHLORIDE 101 mmol/L (98-107); GLUCOSE 141 mg/dL (75-110); PHOSPHORUS 4.5 mg/dL (2.5-4.5); POTASSIUM 3.7 mmol/L (3.6-5.0)
[2020-06-02] MEDS: METOPROLOL TARTRATE 25 MG TABLET PO SCH ×3 (06:00→18:33)
--- NOTE | 2020-06-02 07:49 | Progress Note ---
Provider Note Provider Note: Hematology/Oncology consultation was received. I have reviewed chart and patient was discussed at length with Dr. Vasquez. However, patient remains on COVID restrictions awaiting test results. I will try to arrange a family meeting for tomorrow and complete full consult after COVID restrictions have been lifted.
[2020-06-02] MEDS: BUDESONIDE NEB 0.25 MG/2 ML AMPUL NEB SCH ×2 (08:47→19:50)
[2020-06-02] MEDS: DIGOXIN 0.25 MG TABLET PO SCH (09:26)
[2020-06-02] MEDS: FUROSEMIDE 20 MG TABLET PO SCH ×2 (09:26→18:32)
--- NOTE | 2020-06-02 09:26 | RADIOLOGY REPORT (SQ) ---
EXAM DESCRIPTION: CHEST SINGLE VIEW IMAGES COMPLETED DATE/TIME: 06/02/2020 7:03 am REASON FOR STUDY: Respiratory Failure COMPARISON: 06/01/2020 NUMBER OF VIEWS: One view. TECHNIQUE: Single frontal radiographic image of the chest acquired. LIMITATIONS: None. FINDINGS: LUNGS AND PLEURA: Chronic interstitial changes. No infiltrate or pneumothorax. MEDIASTINUM AND HEART: Stable heart size and mediastinal structures. SUPPORT DEVICES: Appropriate location without change. BONY STRUCTURES: No acute findings. HARDWARE: CABG. OTHER: No other significant finding. IMPRESSION: STABLE APPEARANCE OF THE CHEST. SUPPORT DEVICES UNCHANGED. Reading location - IP/workstation name: [email or web address]
[2020-06-02] MEDS: METHYLPREDNISOLONE INJ 40 MG/1 ML SDV IV SCH (09:27)
[2020-06-02] MEDS: APIXABAN 5 MG TABLET PO SCH ×2 (12:18→21:47)
[2020-06-02] MEDS: SACUBITRIL/VALSARTAN 24 MG/26 MG TABLET PO SCH ×2 (13:14→18:32)
--- NOTE | 2020-06-02 17:24 | PDOC CRITICAL CARE PROG REPORT ---
General Date:: 06/02/20 ICU Day:: 3 Hospital Day:: 3 Resuscitation Status: Do Not Resuscitate Medical Power of Window Maker: Sister Events in the past 12 to 24 Hours:: .: Continues to improve. Breathing more comfortably now and no longer requires ventilator support. Using tracheostomy collar for humidity. He is hungry and wants to eat by mouth. He has been doing this at home and wants to continue. Cardizem drip at 5 mg but heart rate now below 100 7.: Patient's overall condition has improved and he has been weaned from ventilator to tracheostomy collar. He has significant reduced ejection fraction was started on diuresis yesterday. This is not a new finding but there appears to be reduction from the previous altered baseline. Had a discussion with the patient regarding his prognosis and status. He endorses that he is DNR. Reason for ICU Addmission:: Acute on chronic hypoxic respiratory failure - Medications: Medications reviewed and adjusted accordingly: Yes Vasopressors:: Cardizem drip now off Sedation:: None Physical Exam Vital Signs: Temp Pulse Resp BP Pulse Ox 97.3 F 103 H 24 H 106/63 97 06/02/20 16:00 06/02/20 16:00 06/02/20 16:00 06/02/20 16:00 06/02/20 16:00 Intake & Output 06/01/20 06/02/20 06/03/20 06:59 06:59 06:59 Intake Total 72 375 94 Output Total 3025 795 850 Balance -2953 -420 -756 Weight 57.3 kg 55.2 kg Weight/Height Weight 55.2 kg Height 5 ft 9 in General appearance: PRESENT: no acute distress, thin, other - emaciated Exam: 70-year-old chronically ill-appearing male who is emaciated and weak, in no acute distress. He attempts to communicate via trach Head exam: PRESENT: other - Large mass on the right posterior parietal superior occipital region of the head. Eye exam: PRESENT: conjunctival injection - On right, EOMI, PERRLA. ABSENT: nystagmus, scleral icterus Mouth exam: PRESENT: dry mucosa Teeth exam: PRESENT: edentulous Neck exam: PRESENT: tracheostomy. ABSENT: JVD, lymphadenopathy, tenderness, thyromegaly, tracheal deviation Respiratory exam: PRESENT: unlabored, other - Lung sounds not auscultated se condary to the confines of PPE and poor auditory capability of disposable stethoscope. ABSENT: accessory muscle use, prolonged expiratory phas, retraction, tachypnea Cardiovascular exam: PRESENT: irregular rhythm, RRR, other - Heart sounds not auscultated secondary to the confines of PPE and poor auditory capability of disposable stethoscope. ABSENT: tachycardia Pulses: ABSENT: normal dorsalis pedis pul Vascular exam: PRESENT: normal capillary refill. ABSENT: pallor GI/Abdominal exam: PRESENT: soft, tenderness, other - Gastric sounds not auscultated secondary to the confines of PPE and poor auditory capability of disposable stethoscope PEG tube is intact and integrity of the tube is intact.. ABSENT: ascites, firm, guarding, mass, organolmegaly Rectal exam: PRESENT: deferred Gentrourinary exam: PRESENT: indwelling catheter Extremities exam: ABSENT: pedal edema, tenderness Musculoskeletal exam: ABSENT: deformity, dislocation Neurological exam: PRESENT: alert, awake, oriented to person, oriented to place, oriented to situation, CN II-XII grossly intact, other - Symmetrically and globally weak without focal deficits. ABSENT: motor sensory deficit Psychiatric exam: PRESENT: appropriate affect, normal mood Skin exam: PRESENT: other - Multiple skin nodules trunk and extremities as well as scalp. ABSENT: cyanosis, erythema, mottled, pallor, petechiae Tubes/Lines: PRESENT: Peg Tube, Other - Tracheostomy Laboratory/Radiographs Laboratory Results: 06/02/20 04:19 06/02/20 04:19 06/02/20 06/02/20 04:19 04:19 WBC 15.4 H RBC 4.09 L Hgb 13.2 L Hct 38.5 MCV 94 MCH 32.3 MCHC 34.4 RDW 15.5 H Plt Count 198 Seg Neutrophils % Not Reportable Sodium 135.9 L Potassium 3.7 Chloride 101 Carbon Dioxide 26 Anion Gap 9 BUN 50 H Creatinine 0.98 Est GFR ( Amer) > 60 Glucose 141 H Calcium 9.1 Phosphorus 4.5 Magnesium 2.4 H 05/30/20 22:50 Tracheal Aspirate Gram Stain - Final 05/31/20 13:00 Tracheal Aspirate Gram Stain - Final 05/31/20 13:00 Tracheal Aspirate Sputum Culture - Final Serratia Marcescens Corynebacterium Striatum Normal Gris Absent 05/30/20 05/31/20 20:47 13:16 Troponin I 0.130 0.117 NT-Pro-B Natriuret Pep [id number] H Impressions: Chest X-Ray 06/02/20 06:00 IMPRESSION: STABLE APPEARANCE OF THE CHEST. SUPPORT DEVICES UNCHANGED. All labs, radiographs, diagnostic studies and EKGs were personally reviewed: Yes In addition, reports of radiographic and diagnostic studies were read: Yes Assessment and Plan - Diagnosis (1) Acute metabolic encephalopathy Is this a current diagnosis for this admission?: Yes (2) Atrial fibrillation with rapid ventricular response Is this a current diagnosis for this admission?: Yes (3) COPD exacerbation Is this a current diagnosis for this admission?: Yes (4) Acute on chronic respiratory failure with hypoxia and hypercapnia Is this a current diagnosis for this admission?: Yes (5) Acute systolic congestive heart failure Is this a current diagnosis for this admission?: Yes (6) Chronic combined systolic (congestive) and diastolic (congestive) heart failure Is this a current diagnosis for this admission?: Yes (7) Chronic obstructive pulmonary disease with (acute) exacerbation Is this a current diagnosis for this admission?: Yes (8) Pulmonary edema Qualifiers: Chronicity: acute Qualified Code(s): J81.0 - Acute pulmonary edema Is this a current diagnosis for this admission?: Yes (9) Skin cancer of scalp Is this a current diagnosis for this admission?: Yes (10) Tracheostomy in place Is this a current diagnosis for this admission?: Yes (11) Tobacco dependency Is this a current diagnosis for this admission?: Yes Plan Summary: 06.02.2020: Patient is tolerating humidified trach collar and wishes to eat. I spoke with speech pathology who is evaluated in the past and has recommended modified diet which is been ordered. There was some concern initially that he was having difficulty swallowing but it appears that his swallowing is intact however he has been anorexic and has been losing weight. I am concerned that there is an underlying worsening malignancy and given his significant cardiomyopathy, advanced lung disease, decreased functional status and large skin tumor he does meet criteria for palliative care consult. I have started the patient on Entresto but at a very reduced dose given his propensity for lower blood pressure on antihypertensives. We will increase his digoxin slightly to 150 mcg daily He has now off the calcium channel razia drip and should tolerate Lopressor at 12 and half milligrams twice daily Patient's long-term prognosis is limited and we also recommend palliative care. Patient states that the Mediport in his left chest was placed for chemotherapy when he had esophageal cancer. Obviously an EGD would be needed if the patient were to pursue further care. At this point his respiratory status has improved. We have not treated the tracheal cultures given his improvement overall without antibiotics. Should he recrudesced we would recommend meropenem. His white count appears elevated secondary to steroids given the improvement in his chest x-ray this does not appear to be related to infection. He has been started back on apixaban for his atrial fibrillation. 06.01.2020: Patient has improved and he has been transitioned to trach collar. He normally is on trach collar or air at home. He does have corynebacterium and Serratia on tracheal specimen however his chest x-ray is dramatically improved and he is showing no sign of active infection. This appears to be colonization. If his situation worsens or he becomes hypotensive or shows any evidence of recrudescence respiratory failure we will place him on meropenem. Patient confirmed today that he is DNR agreement with his sister. He has significant tumor burden to his scalp and is unsure of whether he wants any procedures. Does endorse significant weight loss He does state that his nutrition status has been poor and he feels anorexic. He has not tried to feed himself through the PEG tube. He does have significant chronic systolic and diastolic biventricular failure. Have started him on diuresis which is improved his overall situation. If his blood pressure remains stable we will start him on perfunctory heart failure medications. His scalp lesion shows minimal bleeding while on heparin anticoagulation for atrial fibrillation. Follow for bleeding. May not be candidate for home therapy given his feable state. Will start beta razia and discontinue IV calcium channel razia Follow electrolyte panel and overall status supportively. Wean steroids Will need palliative care consult--placed for AM-Dr. Zuniga 05.31.2020: I personally saw and evaluated the patient after being seen by nurse practitioner Carlos. I spoke with the patient's sister who is his medical power of insurance attorney Patient continues to smoke with a tracheostomy. On my examination using critical care ultrasound patient has significant systolic dysfunction with an ejection fraction approaching 15%. He dilated cardiomyopathy that appears to be more chronic than acute He does have B-lines on ultrasound that are suggestive of interstitial fluid. Have started diuresis. Overall this appears to be pulmonary edema related to acute and chronic systolic heart failure. We will also screen for viral and bacterial etiologies. We cannot be assured of any contacts with COVID in the community but will screen for this. He has known atrial fibrillation and is supposed to be on anticoagulation. There is a longstanding history of medical noncompliance. I have started him on a heparin drip. He has persistent atrial fibrillation that had a transient response to digoxin and calcium channel razia. Have ordered a digoxin level and will continue medications based on results. I had a lengthy discussion with his sister Mahogany and the decision was for DNR should he have a cardiac arrest. Patient has a significant large mass of the anterior portion of his parietal aspect of his scalp. 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 His sister states that this has not been biopsied however patient has had multiple skin biopsies some of which were positive for squamous cell other is positive for basal cell carcinomas. He is also having esophageal mass. PET scan did not show any uptake in metabolic activity suggestive of metastatic disease but there was evidence of lymphadenopathy hilar region and mediastinal region of the lung. Given his very thin debilitated state possible the patient has end-stage metastatic disease from a number of sources. We will continue to provide supportive care. Should there be a decline we will notify his family and I have assured the integrity and safety of this patient's life to his family. Critical Time Critical Time (minutes): 0 - 10069 Level of Care: IMCU Anticipated discharge: Home with Homehealth Anticipated DC Timeframe: within 48 hours -: 1. The care of a critical patient is a dynamic process. This note is a customer service representative teller synopsis but static in nature. The timeframe for treatments given in order is not necessarily the actual time these treatments may have been done. 2. This patient requires critical care secondary to ongoing requirements for therapy not offered or safe outside the critical care environment. Transfer to a lower level of care will result in altered life or limb morbidity and mortality. 3. Multidisciplinary rounds completed. 4. ABCDE bundle addressed.
[2020-06-02] MEDS ORDERED: METHYLPREDNISOLONE INJ 40 MG/1 ML SDV IV SCH (22:00)
[2020-06-03 04:52] LABS: HEMATOCRIT 41.1 % (37.9-51.0); MEAN CORPUSCULAR HEMOGLOBIN 32.3 pg (27.0-33.4); MEAN CORPUSCULAR HGB CONC 34.1 g/dL (32.0-36.0); MEAN CORPUSCULAR VOLUME 95 fl (80-97); PLATELET COUNT 212 10^3/uL (150-450); RED BLOOD COUNT 4.34 10^6/uL (4.35-5.55); RED CELL DISTRIBUTION WIDTH 15.6 % (11.5-14.0); WHITE BLOOD COUNT 15.3 10^3/uL (4.0-10.5)
[2020-06-03 04:59] LABS: ANION GAP 7 (5-19); BLOOD UREA NITROGEN 45 mg/dL (7-20); CALCIUM 8.6 mg/dL (8.4-10.2); CARBON DIOXIDE 29 mmol/L (22-30); CHLORIDE 101 mmol/L (98-107); GLUCOSE 177 mg/dL (75-110); PHOSPHORUS 3.1 mg/dL (2.5-4.5); POTASSIUM 3.8 mmol/L (3.6-5.0)
[2020-06-03 05:22] LABS: ABSOLUTE MONOCYTES # (MANUAL) 0.8 10^3/uL (0.1-1.4); BAND NEUTROPHILS % (MANUAL) 2 % (3-5); BASOPHILS % (MANUAL) 0 % (0-2); EOSINOPHILS % (MANUAL) 0 % (0-6); LYMPHOCYTES % (MANUAL) 0 % (13-45); MONOCYTES % (MANUAL) 5 % (3-13); SEGMENTED NEUTROPHILS % (MAN) 93 % (42-78); TOTAL CELLS COUNTED 100
[2020-06-03 05:24] LABS: ANISOCYTOSIS SLIGHT; OVALOCYTES SLIGHT; PLATELET CLUMPS PRESENT; PLATELET COMMENT ADEQUATE
[2020-06-03] MEDS: METOPROLOL TARTRATE 25 MG TABLET PO SCH ×2 (06:03→17:12)
--- NOTE | 2020-06-03 08:13 | PDOC CONSULTATION ---
Consultation Consult Date: 06/03/20 Attending physician:: LEO FUNK Provider Consulted: LIZZETTE POSEY Consult reason:: Patient with known history of esophageal cancer status post concurrent chemoradiation complete response here with COPD exacerbation History of Present Illness Admission Date/PCP: 05/31/20 01:06 LEO FUNK DO Patient complains of: Shortness of breath/LEIGH History of Present Illness: RUKHSANA GRAHMA is a 70 year old male who presented in respiratory failure, he is well-known to our oncology clinic who had history of stage II esophageal cancer that we treated last year. He had a lower esophageal tumor, bill velasco was noncompliant with follow-up because of many issues including transportation, ultimately it took us about 3 months to complete concurrent chemoradiation that should have only taken about 6 weeks. Finally he completed all therapy and had a PET/CT done most recently in January which indicated complete response. But he never showed up for follow-up after the scan. Regardless, he is lost a lot of weight and is very weak. His lungs are poor and he has been in and out of the hospital quite a bit. Mostly because of end-stage COPD. Today I had a long discussion with the patient as well as his sister, Mahogany, who I also take care of in our office who has history of CML. They both seem agreeable to hospice as best as I could explain it to them. Past Medical History Cardiac Medical History: Reports: Atrial Fibrillation, Congestive Heart Failure - LVEF 20%, Coronary Artery Disease, Myocardial Infarction - 2009 Denies: DVT, Hypertension, Pulmonary Embolism Pulmonary Medical History: Reports: Chronic Obstructive Pulmonary Disease (COPD), Respiratory Failure Denies: Asthma, Bronchitis, Pneumonia, Sleep Apnea Neurological Medical History: Denies: Seizures Endocrine Medical History: Denies: Diabetes Mellitus Type 1, Diabetes Mellitus Type 2 Malignancy Medical History: Reports: Skin Cancer GI Medical History: Denies: Cirrhosis, Hepatitis Musculoskeltal Medical History: Denies: Arthritis, Gout Skin Medical History: Denies: Eczema, Psoriasis Psychiatric Medical History: Denies: Depression Hematology: Denies: Anemia, Bleeding Tendencies Infectious Medical History: Reports: Methicillin-Resistant Staph Aureus Past Surgical History Past Surgical History: Reports: Cardiac Catheterization, Coronary Artery Bypass Graft - 11/2011, Coronary Stent Social History Lives with: Family Smoking Status: Former Smoker Frequency of Alcohol Use: None Hx Recreational Drug Use: No Drugs: None Hx Prescription Drug Abuse: No - Advance Directive Resuscitation Status: Do Not Resuscitate Family History Family History: Hypertension Parental Family History Reviewed: Yes Children Family History Reviewed: Yes Sibling(s) Family History Reviewed.: Yes Medication/Allergy Home Medications: Hydroxyzine Pamoate [Vistaril] 25 mg PO HSP PRN 11/05/19 Omeprazole 20 mg PO Q12 11/05/19 Oxycodone HCl/Acetaminophen [Oxycodone-Acetaminophen 10-325] 1 tab PO Q4HP PRN 11/05/19 Tizanidine HCl 2 mg PO HSP PRN 11/05/19 Apixaban [Eliquis 5 mg Tablet] 5 mg PO Q12 #60 tablet 05/02/20 Budesonide [Pulmicort Neb 0.25 mg/2 ml Ampul] 0.25 mg NEB RTQ12 #180 ampul.neb 05/02/20 Digoxin [Lanoxin 0.25 mg Tablet] 0.125 mg PO DAILY #30 05/02/20 Diltiazem HCl [Cardizem Cd 120 mg Capsule] 120 mg PO Q12 #60 05/02/20 Ipratropium/Albuterol Sulfate [Duoneb 3 ml Ampul] 3 ml NEB RTQ4HP PRN 05/31/20 Allergies/Adverse Reactions: Penicillins Allergy (Severe, Verified 03/24/20 08:00) turned blue as infant aspirin Allergy (Verified 03/24/20 08:00) Review of Systems Constitutional: ABSENT: chills, fever(s), headache(s), weight gain, weight loss Eyes: ABSENT: visual disturbances Ears: ABSENT: hearing changes Cardiovascular: ABSENT: chest pain, dyspnea on exertion, edema, orthropnea, palpitations Respiratory: ABSENT: cough, hemoptysis Gastrointestinal: ABSENT: abdominal pain, constipation, diarrhea, hematemesis, hematochezia, nausea, vomiting Genitourinary: ABSENT: dysuria, hematuria Musculoskeletal: ABSENT: joint swelling Integumentary: ABSENT: rash, wounds Neurological: ABSENT: abnormal gait, abnormal speech, confusion, dizziness, focal weakness, syncope Psychiatric: ABSENT: anxiety, depression, homidical ideation, suicidal ideation Endocrine: ABSENT: cold intolerance, heat intolerance, polydipsia, polyuria Hematologic/Lymphatic: ABSENT: easy bleeding, easy bruising Physical Exam Vital Signs: Temp Pulse Resp BP Pulse Ox 97.7 F 92 27 H 107/90 H 94 06/03/20 00:00 06/03/20 07:00 06/03/20 06:00 06/03/20 05:59 06/03/20 06:00 Intake & Output 06/02/20 06/03/20 06/04/20 06:59 06:59 06:59 Intake Total 375 1011 Output Total 793 0360 175 Balance -420 -239 -175 Weight 55.2 kg 54.4 kg General appearance: PRESENT: no acute distress, well-developed, well-nourished Head exam: PRESENT: atraumatic, normocephalic Eye exam: PRESENT: conjunctiva pink, EOMI, PERRLA. ABSENT: scleral icterus Ear exam: PRESENT: normal external ear exam Mouth exam: PRESENT: moist, tongue midline Neck exam: ABSENT: carotid bruit, JVD, lymphadenopathy, thyromegaly Respiratory exam: PRESENT: clear to auscultation nelson. ABSENT: rales, rhonchi, wheezes Cardiovascular exam: PRESENT: RRR. ABSENT: diastolic murmur, rubs, systolic murmur Pulses: PRESENT: normal dorsalis pedis pul Vascular exam: PRESENT: normal capillary refill GI/Abdominal exam: PRESENT: normal bowel sounds, soft. ABSENT: distended, guarding, mass, organolmegaly, rebound, tenderness Rectal exam: PRESENT: deferred Extremities exam: PRESENT: full ROM. ABSENT: calf tenderness, clubbing, pedal edema Neurological exam: PRESENT: alert, awake, oriented to person, oriented to place, oriented to time, oriented to situation, CN II-XII grossly intact. ABSENT: motor sensory deficit Psychiatric exam: PRESENT: appropriate affect, normal mood. ABSENT: homicidal ideation, suicidal ideation Skin exam: PRESENT: dry, intact, warm. ABSENT: cyanosis, rash Results Laboratory Results: 06/03/20 04:08 06/03/20 04:08 06/03/20 06/03/20 04:08 04:08 WBC 15.3 H RBC 4.34 L Hgb 14.0 Hct 41.1 MCV 95 MCH 32.3 MCHC 34.1 RDW 15.6 H Plt Count 212 Seg Neutrophils % Not Reportable Sodium 137.1 Potassium 3.8 Chloride 101 Carbon Dioxide 29 Anion Gap 7 BUN 45 H Creatinine 0.90 Est GFR ( Amer) > 60 Glucose 177 H Calcium 8.6 Phosphorus 3.1 Magnesium 2.3 05/30/20 22:50 Tracheal Aspirate Gram Stain - Final 05/31/20 13:00 Tracheal Aspirate Gram Stain - Final 05/31/20 13:00 Tracheal Aspirate Sputum Culture - Final Serratia Marcescens Corynebacterium Striatum Normal Gris Absent 05/30/20 05/31/20 20:47 13:16 Troponin I 0.130 0.117 NT-Pro-B Natriuret Pep 11722 H Assessment & Plan - Diagnosis (1) Chronic obstructive pulmonary disease with (acute) exacerbation Is this a current diagnosis for this admission?: Yes Plan: He does have end-stage COPD and will have high chance of recurrent admissions for COPD exacerbation, he has lost a lot of weight and I believe his life expectancy is less than 6 months. He is hospice appropriate. I have asked Dr. Funk to begin the process for hospice evaluation. (2) History of malignant neoplasm of esophagus Is this a current diagnosis for this admission?: Yes Plan: He has had complete response, there still is some mediastinal adenopathy but this is never been PET positive so I do not believe this is true cancer in the mediastinum. (3) Acute systolic congestive heart failure Is this a current diagnosis for this admission?: Yes Plan: He does have known heart failure with very low EF so this is also contributing to his poor status as well as contributing to decreased life expectancy, but he is hospice appropriate for COPD as well. - Time Time Spent: Greater than 70 Minutes
--- NOTE | 2020-06-03 08:48 | RADIOLOGY REPORT (SQ) ---
EXAM DESCRIPTION: CHEST SINGLE VIEW IMAGES COMPLETED DATE/TIME: 06/03/2020 6:47 am REASON FOR STUDY: Respiratory Failure COMPARISON: 06/02/2020 NUMBER OF VIEWS: One view. TECHNIQUE: Single frontal radiographic image of the chest acquired. LIMITATIONS: None. FINDINGS: LUNGS AND PLEURA: Stable appearance. MEDIASTINUM AND HILAR STRUCTURES: Stable heart size and mediastinal structures. HEART AND VASCULAR STRUCTURES: Stable appearance. SUPPORT DEVICES: Appropriate location without change. BONES: No acute findings. OTHER: No other significant finding. IMPRESSION: STABLE APPEARANCE OF THE CHEST. SUPPORT DEVICES UNCHANGED. TECHNICAL DOCUMENTATION: JOB ID: [id number] 2010 [employer]- All Rights Reserved Reading location - IP/workstation name: [email or web address]
--- NOTE | 2020-06-03 08:52 | PDOC CRITICAL CARE PROG REPORT ---
General Date:: 06/03/20 ICU Day:: 4 Hospital Day:: 4 Resuscitation Status: Do Not Resuscitate Medical Power of Manager Recovery: Sister--Shereen Marcelino Events in the past 12 to 24 Hours:: 06.03.2020: Patient had an uneventful evening. He is on room air with minimal secretions. Started on diet without any difficulty. He has no distinct focal complaints. He is anxious to go home. Palliative and oncology care evaluate the patient and patient has agreed to palliative hospice care. 06.02.2020: Continues to improve. Breathing more comfortably now and no longer requires ventilator support. Using tracheostomy collar for humidity. He is hungry and wants to eat by mouth. He has been doing this at home and wants to continue. Cardizem drip at 5 mg but heart rate now below 100 06.01.2020: Patient's overall condition has improved and he has been weaned from ventilator to tracheostomy collar. He has significant reduced ejection fraction was started on diuresis yesterday. This is not a new finding but there appears to be reduction from the previous altered baseline. Had a discussion with the patient regarding his prognosis and status. He endorses that he is DNR. Review of systems relevant to events:: 06.03.2020: Patient has no active complaints. In discussion with oncology patibrigida pennington has been somewhat noncompliant with his post oncologic care. His PET scan post treatment for esophageal cancer did not show any residual disease. Skin cancer and large tumor on his head had not been addressed. Patient would often not show up for appointments. 06.01.2020: Patient's atrial fibrillation is moderately controlled but he is still on Cardizem drip. Pressure has been low normal certainly not hypotensive. He denies abdominal pain or chest pain. He states that his shortness of breath is at his baseline. Reason for ICU Addmission:: Acute on chronic hypoxic respiratory failure - Medications: Medications reviewed and adjusted accordingly: Yes Physical Exam Vital Signs: Temp Pulse Resp BP Pulse Ox 97.7 F 92 27 H 107/90 H 94 06/03/20 00:00 06/03/20 07:00 06/03/20 06:00 06/03/20 05:59 06/03/20 06:00 Intake & Output 06/02/20 06/03/20 06/04/20 06:59 06:59 06:59 Intake Total 375 1011 Output Total 795 1250 175 Balance -420 -239 -175 Weight 55.2 kg 54.4 kg Weight/Height Weight 54.4 kg Height 5 ft 9 in General appearance: PRESENT: hard of hearing, thin Exam: Emaciated chronically ill-appearing nontoxic 70-year-old male who appears older than stated age. No acute distress, able to phonate through trach Head exam: PRESENT: other - Large growth in the posterior parietal region of the scalp on the right; friable Eye exam: PRESENT: conjunctival injection - On the right improved, EOMI, PERRLA. ABSENT: nystagmus, scleral icterus Ear exam: ABSENT: bleeding Mouth exam: PRESENT: moist, neck supple Teeth exam: PRESENT: edentulous Neck exam: PRESENT: tracheostomy. ABSENT: JVD, thyromegaly Respiratory exam: PRESENT: clear to auscultation nelson, unlabored. ABSENT: accessory muscle use, prolonged expiratory phas, rales, rhonchi, wheezes Cardiovascular exam: PRESENT: RRR, +S1, +S2 Pulses: ABSENT: normal dorsalis pedis pul Vascular exam: PRESENT: normal capillary refill. ABSENT: pallor GI/Abdominal exam: PRESENT: normal bowel sounds, soft, other - PEG tube remains intact. ABSENT: ascites, distended, guarding, mass, organolmegaly, rebound, tenderness Rectal exam: PRESENT: deferred Gentrourinary exam: ABSENT: indwelling catheter Extremities exam: ABSENT: pedal edema, tenderness Musculoskeletal exam: ABSENT: deformity, dislocation Neurological exam: PRESENT: alert, awake, oriented to person, oriented to place, oriented to time, oriented to situation, CN II-XII grossly intact. ABSENT: motor sensory deficit Psychiatric exam: PRESENT: appropriate affect, normal mood Skin exam: PRESENT: dry, intact, warm, other - Multiple skin nodules some of which are large and on stalks.. ABSENT: cyanosis, rash Tubes/Lines: PRESENT: Other - Tracheostomy is intact. No bleeding no excessive secretions Laboratory/Radiographs Laboratory Results: 06/03/20 04:08 06/03/20 04:08 06/03/20 06/03/20 04:08 04:08 WBC 15.3 H RBC 4.34 L Hgb 14.0 Hct 41.1 MCV 95 MCH 32.3 MCHC 34.1 RDW 15.6 H Plt Count 212 Seg Neutrophils % Not Reportable Sodium 137.1 Potassium 3.8 Chloride 101 Carbon Dioxide 29 Anion Gap 7 BUN 45 H Creatinine 0.90 Est GFR ( Amer) > 60 Glucose 177 H Calcium 8.6 Phosphorus 3.1 Magnesium 2.3 05/30/20 22:50 Tracheal Aspirate Gram Stain - Final 05/31/20 13:00 Tracheal Aspirate Gram Stain - Final 05/31/20 13:00 Tracheal Aspirate Sputum Culture - Final Serratia Marcescens Corynebacterium Striatum Normal Gris Absent 05/30/20 05/31/20 20:47 13:16 Troponin I 0.130 0.117 NT-Pro-B Natriuret Pep 12627 H All labs, radiographs, diagnostic studies and EKGs were personally reviewed: Yes In addition, reports of radiographic and diagnostic studies were read: Yes Assessment and Plan - Diagnosis (1) Acute metabolic encephalopathy Is this a current diagnosis for this admission?: Yes (2) Atrial fibrillation with rapid ventricular response Is this a current diagnosis for this admission?: Yes (3) COPD exacerbation Is this a current diagnosis for this admission?: Yes (4) Acute on chronic respiratory failure with hypoxia and hypercapnia Is this a current diagnosis for this admission?: Yes (5) Acute systolic congestive heart failure Is this a current diagnosis for this admission?: Yes (6) Chronic combined systolic (congestive) and diastolic (congestive) heart failure Is this a current diagnosis for this admission?: Yes (7) Chronic obstructive pulmonary disease with (acute) exacerbation Is this a current diagnosis for this admission?: Yes (8) Pulmonary edema Qualifiers: Chronicity: acute Qualified Code(s): J81.0 - Acute pulmonary edema Is this a current diagnosis for this admission?: Yes (9) Skin cancer of scalp Is this a current diagnosis for this admission?: Yes (10) Tracheostomy in place Is this a current diagnosis for this admission?: Yes (11) Tobacco dependency Is this a current diagnosis for this admission?: Yes Plan Summary: 06.03.2020: Patient has remained stable throughout the night. He has been ordered for stepdown care but unfortunately due to bed capacity was unable to be transferred. He has significant cardiomyopathy chronically both systolic and diastolic reconsulting and dilation and limitation in function overall. He has a chronic trach but does not not require ventilator support. He has multiple skin cancer sites with a large mass on his scalp. He has a recent history of esophageal cancer that appears to be, at least on PET scan, quiescent. He is losing weight and failing to thrive. He is fully aware and in discussion he has made himself DNR. He wishes to be considered for hospice care. Have discussed with oncology and spoke with Callie at [facility] As per his wishes and as a reasonable request we will continue to support this. Medications for heart failure may need to be adjudicated depending on hospice needs. Given his frail state and possible ability to fall will hold further anticoagulation. Entresto and beta-razia for atrial fibrillation may be more helpful as a palliative effect and will continue these. 06.02.2020: Patient is tolerating humidified trach collar and wishes to eat. I spoke with speech pathology who is evaluated in the past and has recommended modified diet which is been ordered. There was some concern initially that he was having difficulty swallowing but it appears that his swallowing is intact however he has been anorexic and has been losing weight. I am concerned that there is an underlying worsening malignancy and given his significant cardiomyopathy, advanced lung disease, decreased functional status and large skin tumor he does meet criteria for palliative care consult. I have started the patient on Entresto but at a very reduced dose given his propensity for lower blood pressure on antihypertensives. We will increase his digoxin slightly to 150 mcg daily He has now off the calcium channel razia drip and should tolerate Lopressor at 12 and half milligrams twice daily Patient's long-term prognosis is limited and we also recommend palliative care. Patient states that the Mediport in his left chest was placed for chemotherapy when he had esophageal cancer. Obviously an EGD would be needed if the patient were to pursue further care. At this point his respiratory status has improved. We have not treated the tracheal cultures given his improvement overall without antibiotics. Should he recrudesced we would recommend meropenem. His white count appears elevated secondary to steroids given the improvement in his chest x-ray this does not appear to be related to infection. He has been started back on apixaban for his atrial fibrillation. 06.01.2020: Patient has improved and he has been transitioned to trach collar. He normally is on trach collar or air at home. He does have corynebacterium and Serratia on tracheal specimen however his chest x-ray is dramatically improved and he is showing no sign of active infection. This appears to be colonization. If his situation worsens or he becomes hypotensive or shows any evidence of recrudescence respiratory failure we will place him on meropenem. Patient confirmed today that he is DNR agreement with his sister. He has significant tumor burden to his scalp and is unsure of whether he wants any procedures. Does endorse significant weight loss He does state that his nutrition status has been poor and he feels anorexic. He has not tried to feed himself through the PEG tube. He does have significant chronic systolic and diastolic biventricular failure. Have started him on diuresis which is improved his overall situation. If his blood pressure remains stable we will start him on perfunctory heart failure medications. His scalp lesion shows minimal bleeding while on heparin anticoagulation for atrial fibrillation. Follow for bleeding. May not be candidate for home therapy given his feable state. Will start beta razia and discontinue IV calcium channel razia Follow electrolyte panel and overall status supportively. Wean steroids Will need palliative care consult--placed for AM-Dr. Zuniga 05.31.2020: I personally saw and evaluated the patient after being seen by nurse practitioner Carlos. I spoke with the patient's sister who is his medical power of trial attorney Patient continues to smoke with a tracheostomy. On my examination using critical care ultrasound patient has significant systolic dysfunction with an ejection fraction approaching 15%. He dilated cardiomyopathy that appears to be more chronic than acute He does have B-lines on ultrasound that are suggestive of interstitial fluid. Have started diuresis. Overall this appears to be pulmonary edema related to acute and chronic systolic heart failure. We will also screen for viral and bacterial etiologies. We cannot be assured of any contacts with COVID in the community but will screen for this. He has known atrial fibrillation and is supposed to be on anticoagulation. There is a longstanding history of medical noncompliance. I have started him on a heparin drip. He has persistent atrial fibrillation that had a transient response to digoxin and calcium channel razia. Have ordered a digoxin level and will continue medications based on results. I had a lengthy discussion with his sister Mahogany and the decision was for DNR should he have a cardiac arrest. Patient has a significant large mass of the anterior portion of his parietal aspect of his scalp. 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 His sister states that this has not been biopsied however patient has had multiple skin biopsies some of which were positive for squamous cell other is positive for basal cell carcinomas. He is also having esophageal mass. PET scan did not show any uptake in metabolic activity suggestive of metastatic disease but there was evidence of lymphadenopathy hilar region and mediastinal region of the lung. Given his very thin debilitated state possible the patient has end-stage metastatic disease from a number of sources. We will continue to provide supportive care. Should there be a decline we will notify his family and I have assured the integrity and safety of this patient's life to his family. Critical Time Critical Time (minutes): 0 - 14056 Level of Care: IMCU Anticipated discharge: Hospice Anticipated DC Timeframe: when bed available -: 1. The care of a critical patient is a dynamic process. This note is a metals sales representative synopsis but static in nature. The timeframe for treatments given in order is not necessarily the actual time these treatments may have been done. 2. This patient requires critical care secondary to ongoing requirements for therapy not offered or safe outside the critical care environment. Transfer to a lower level of care will result in altered life or limb morbidity and mortality. 3. Multidisciplinary rounds completed. 4. ABCDE bundle addressed.
[2020-06-03] MEDS: BUDESONIDE NEB 0.25 MG/2 ML AMPUL NEB SCH (09:33)
[2020-06-03] MEDS ORDERED: DIGOXIN 0.125 MG TABLET PO SCH ×2 (10:00)
[2020-06-03] MEDS: SACUBITRIL/VALSARTAN 24 MG/26 MG TABLET PO SCH ×2 (10:19→17:11)
[2020-06-03] MEDS: FUROSEMIDE 20 MG TABLET PO SCH ×2 (10:19→17:12)
[2020-06-03] MEDS: METHYLPREDNISOLONE DOSEPAK (4 MG/TAB) 21 TAB/DSPK PO PRN ×2 (10:31→17:08)
--- NOTE | 2020-06-03 16:38 | PDOC TRANSFER SUMMARY ---
General - Admit/Disc Date/PCP Admission Date/Primary Care Provider: 05/31/20 01:06 LEO RICKETTS DO Discharge Date: 06/03/20 - Discharge Diagnosis (1) Acute metabolic encephalopathy Is this a current diagnosis for this admission?: Yes (2) Atrial fibrillation with rapid ventricular response Is this a current diagnosis for this admission?: Yes (3) COPD exacerbation Is this a current diagnosis for this admission?: Yes (4) Acute on chronic respiratory failure with hypoxia and hypercapnia Is this a current diagnosis for this admission?: Yes (5) Acute systolic congestive heart failure Is this a current diagnosis for this admission?: Yes (6) Chronic combined systolic (congestive) and diastolic (congestive) heart failure Is this a current diagnosis for this admission?: Yes (7) Chronic obstructive pulmonary disease with (acute) exacerbation Is this a current diagnosis for this admission?: Yes (8) Pulmonary edema Is this a current diagnosis for this admission?: Yes (9) Skin cancer of scalp Is this a current diagnosis for this admission?: Yes (10) Tracheostomy in place Is this a current diagnosis for this admission?: Yes (11) Tobacco dependency Is this a current diagnosis for this admission?: Yes (12) History of esophageal cancer Is this a current diagnosis for this admission?: Yes - Additional Information Resuscitation Status: Do Not Resuscitate Discharge Diet: As Tolerated, Other (Comments) - Modified mechanical soft ground meats regular liquids Discharge Activity: Activity As Tolerated, Balance Activity w/Rest, No Driving Home Medications: Oxycodone HCl/Acetaminophen [Oxycodone-Acetaminophen 10-325] 1 tab PO Q4HP PRN 11/05/19 Tizanidine HCl 2 mg PO HSP PRN 11/05/19 Budesonide [Pulmicort Neb 0.25 mg/2 ml Ampul] 0.25 mg NEB RTQ12 #180 ampul.neb 05/02/20 Digoxin [Lanoxin 0.25 mg Tablet] 0.125 mg PO DAILY #30 05/02/20 Ipratropium/Albuterol Sulfate [Duoneb 3 ml Ampul] 3 ml NEB RTQ4HP PRN 05/31/20 Metoprolol Tartrate [Lopressor 25 mg Tablet] 12.5 mg PO Q12 06/03/20 History of Present Illness Admission Date/PCP: 05/31/20 01:06 LEO RICKETTS DO History of Present Illness: RUKHSANA GRAHAM is a 70 year old male who was admitted on 31 May for mucus obstruction and respiratory failure with chronic tracheostomy. He does not use a ventilator at home. He required mechanical ventilation and transferred to the ICU from the ER because of his respiratory failure. He improved over time without any significant intervention after clearance of the obstruction. Although he had mixed organisms in his tracheostomy specimen these appear to be colonization and his chest x-ray did not reveal any significant pneumonia. Hospital Course Hospital Course: Patient improved over time he was able to be weaned from mechanical ventilation. He transitioned to trach collar for humidification and then room air. He has significant emaciation and endorses that he has difficulty eating and gaining weight. He has chronic congestive heart failure with combined dilated systolic and diastolic dysfunction. He also had significant atrial fibrillation on presentation requiring Cardizem drip. Repeat echo confirmed the above. He was transitioned to oral beta-razia therapy with success and placed on low- dose Entresto. He was able to be transitioned to room air via the tracheostomy. He was placed on steroids which are weaning He has a large tumor emanating from his scalp on the back of his head which has been bleeding asked with trauma. There was no bleeding on apixaban. Given his history of esophageal cancer we discussed with oncology what the status was. He had had chemotherapy but had poor follow-up. He did present for posttreatment PET scan which was not done in an appropriate timeframe due to the patient's noncompliance. PET scan did not show any demonstrable residual disease. Patient has not had any work done on the large tumor emanating from his scalp. Given the above he declared himself DNR and after palliative care evaluation was deemed to be a candidate for palliative care and hospice. He has agreed and his sister has as well. [facility] hospice was notified (Callie-[phone]) and will work with case management to facilitate his transition to this care. Have discontinued apixaban and have continued his anti-atrial fibrillation medications for palliative assistance Have asked speech therapy to see if he is a candidate for [place] valve. Physical Exam Vital Signs: Temp Pulse Resp BP Pulse Ox 97.4 F 92 23 H 113/64 92 06/03/20 08:00 06/03/20 07:00 06/03/20 08:32 06/03/20 08:32 06/03/20 08:32 Intake & Output 06/02/20 06/03/20 06/04/20 06:59 06:59 06:59 Intake Total 375 1011 Output Total 795 4207 175 Balance -788 -788 -929 Weight 55.2 kg 54.4 kg Results Laboratory Results: 06/03/20 04:08 06/03/20 04:08 06/03/20 06/03/20 04:08 04:08 WBC 15.3 H RBC 4.34 L Hgb 14.0 Hct 41.1 MCV 95 MCH 32.3 MCHC 34.1 RDW 15.6 H Plt Count 212 Seg Neutrophils % Not Reportable Sodium 137.1 Potassium 3.8 Chloride 101 Carbon Dioxide 29 Anion Gap 7 BUN 45 H Creatinine 0.90 Est GFR ( Amer) > 60 Glucose 177 H Calcium 8.6 Phosphorus 3.1 Magnesium 2.3 05/30/20 22:50 Tracheal Aspirate Gram Stain - Final 05/31/20 13:00 Tracheal Aspirate Gram Stain - Final 05/31/20 13:00 Tracheal Aspirate Sputum Culture - Final Serratia Marcescens Corynebacterium Striatum Normal Gris Absent 05/30/20 05/31/20 20:47 13:16 Troponin I 0.130 0.117 NT-Pro-B Natriuret Pep [id number] H Impressions: Chest X-Ray 06/03/20 06:00 IMPRESSION: STABLE APPEARANCE OF THE CHEST. SUPPORT DEVICES UNCHANGED. Transfer Plan - Disposition Transfer Plan: Patient has been accepted by [facility] hospice and will be discharged to home under their care. Will discontinue Entresto but continue digoxin for palliative management of atrial fibrillation. No anticoagulation - Time Spent with Patient Time spent with patient: Greater than 30 Minutes Qualifiers PATIENT BEING DISCHARGED WITH ANY OF THE FOLLOWING DIAGNOSIS: No VTE patient discharged on overlapping Therapy?: No Reason(s) for not prescribing Statins therapy:: Hospice Care Reason(s) for not prescribing Aspirin therapy:: Hospice Care Plan Discharge Plan: Discharge to home with hospice follow-up. May continue digoxin and Lopressor for palliative heart rate management. Medications for symptoms as per hospice. Time Spent: Greater than 30 Minutes
[2020-06-03 18:55] VITALS: BP 105/70
== END 2020-06-03 18:45 | disposition hospice, home (50) | DRG 208 ==
LOC: ER 20:41 → EH 05-31 01:06 → ICU 05-31 03:19
PROVIDERS: ADMIT Internal Medicine Geriatric Medicine; ATTEND Internal Medicine Geriatric Medicine
PROC: 5A1945Z Respiratory Ventilation, 24-96 Consecutive Hours (ICD-10-PCS; principal; 2020-05-31)
DX: J96.21 Acute and chronic respiratory failure with hypoxia (principal); G93.41 Metabolic encephalopathy; I50.43 Acute on chronic combined systolic (congestive) and diastolic (congestive) heart failure; J44.1 Chronic obstructive pulmonary disease with (acute) exacerbation; I48.19 Other persistent atrial fibrillation; I42.0 Dilated cardiomyopathy; Z93.0 Tracheostomy status; Z20.828 Contact with and (suspected) exposure to other viral communicable diseases; I25.10 Atherosclerotic heart disease of native coronary artery without angina pectoris; J96.22 Acute and chronic respiratory failure with hypercapnia; I25.2 Old myocardial infarction; F17.210 Nicotine dependence, cigarettes, uncomplicated; C44.41 Basal cell carcinoma of skin of scalp and neck; Z85.01 Personal history of malignant neoplasm of esophagus; Z79.899 Other long term (current) drug therapy; Z91.19 Patient's noncompliance with other medical treatment and regimen; Z66 Do not resuscitate; Z92.21 Personal history of antineoplastic chemotherapy; Z92.3 Personal history of irradiation; Z86.14 Personal history of Methicillin resistant Staphylococcus aureus infection; Z95.1 Presence of aortocoronary bypass graft; Z95.5 Presence of coronary angioplasty implant and graft; Z88.6 Allergy status to analgesic agent; Z88.0 Allergy status to penicillin; Z79.01 Long term (current) use of anticoagulants; Z79.51 Long term (current) use of inhaled steroids; Z93.1 Gastrostomy status
CPT/HCPCS: 36415; 36600; 71045; 80048; 80053; 80162; 80307; 81001; 82728; 82803; 83735; 83880; 84100; 84443; 84484; 85025; 85379; 85610; 85730; 86140; 87040; 87070; 87077; 87186; 87205; 87252; 87635; 93005; 93010; 93306; 94002; 94003; 96374; 99221; 99239; 99285; 99291; C9803; J1160; J1644; J1940; J1956; J2920; J3490; J7509